=== PATIENT | male | born 1960 ===

== ENCOUNTER 2016-04-24 00:43 | Emergency (ER) | payer MEDICARE ==
[2016-04-24 00:43] VITALS: BMI 20.2
[2016-04-24 01:19] VITALS: BP 116/67; PULSE 97; TEMP 98.6
--- NOTE | 2016-04-24 03:00 | C.PDOC ---
History Of Present Illness 56 y/o male who is well known to the ED, with a PMHx that includes bipolar disorder, presents to the ED with complaints of abdominal pain. Pt states "my stomach is bubbling, I need somewhere to rest". He denies chest pain, shortness of breath, or fever. Time Seen by Provider: 04/24/16 01:11 Chief Complaint (Nursing): Abdominal Pain History Per: Patient History/Exam Limitations: no limitations Onset/Duration Of Symptoms: Unknown Current Symptoms Are (Timing): Still Present Location Of Pain/Discomfort: Diffuse Radiation Of Pain To:: None Quality Of Discomfort: Other ("bubbly") Associated Symptoms: denies: Fever, Chest Pain Exacerbating Factors: None Recent travel outside of the [place]: No Additional History Per: Patient Past Medical History Reviewed: Historical Data, Nursing Documentation, Vital Signs Vital Signs: Last Vital Signs Temp 98.6 F 04/24/16 01:19 Pulse 97 H 04/24/16 01:19 Resp 17 04/24/16 05:57 BP 116/67 04/24/16 01:19 Pulse Ox 99 04/24/16 05:57 - Medical History PMH: Anxiety, Bipolar Disorder, Depression, Fractures (2013 fx tibula/fibula), Gastritis (no c/o at present), Paranoia, Personality Disorder, Schizophrenia, Chronic Pain (Chronic abdominal pain) Surgical History: - [facility] Procedures APPLICATION OF SPLINT (04/09/14) CL FX REDUC-TIBIA/FIBULA (02/26/13) GROUP PSYCHOTHERAPY (08/25/15) INDIVID PSYCHOTHERAP NEC (12/17/13) INDIVIDUAL PSYCHOTHERAPY, BEHAVIORAL (01/29/16) INDIVIDUAL PSYCHOTHERAPY, SUPPORTIVE (08/25/15) OTHER GROUP THERAPY (11/05/13) PSYCHIA INTERV/EVAL NEC (06/28/14) Family History: States: No Known Family Hx - Social History Hx Tobacco Use: Yes (heavy smoker) Hx Alcohol Use: No (denies) Hx Substance Use: No - Immunization History Hx Tetanus Toxoid Vaccination: No Hx Influenza Vaccination: No Hx Pneumococcal Vaccination: No Review Of Systems Except As Marked, All Systems Reviewed And Found Negative. Constitutional: Negative for: Fever Cardiovascular: Negative for: Chest Pain Respiratory: Negative for: Shortness of Breath Gastrointestinal: Positive for: Abdominal Pain Physical Exam - Physical Exam Appears: Non-toxic, No Acute Distress Skin: Warm, Dry, No Rash Head: Atraumatic Eye(s): bilateral: Normal Inspection, PERRL Oral Mucosa: Moist Gastrointestinal/Abdominal: Normal Exam, Bowel Sounds, Soft, No Tenderness, No Distention, No Guarding, No Rebound Extremity: Bilateral: Atraumatic, Normal Color And Temperature, Normal ROM Neurological/Psych: Oriented x3, Normal Speech Gait: Steady ED Course And Treatment O2 Sat by Pulse Oximetry: 97 (on RA) Pulse Ox Interpretation: Normal Progress Note: Pt is requesting to a bed to sleep for the night and a sandwich despite c/o of abd pain. 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 - Scribe Statement The provider has reviewed the documentation as recorded by the Madhavibalexis Magdaleno All medical record entries made by the Scribe were at my direction and personally dictated by me. I have reviewed the chart and agree that the record accurately reflects my personal performance of the history, physical exam, medical decision making, and the department course for this patient. I have also personally directed, reviewed, and agree with the discharge instructions and disposition.
[2016-04-24 06:06] VITALS: RESP 17
[2016-04-24 06:33] VITALS: O2SAT 97
== END 2016-04-24 05:57 | disposition home or self-care (01) ==
LOC: C.ER 00:43
DX: R10.84 Generalized abdominal pain (principal); Z59.0 Homelessness

== ENCOUNTER 2016-04-24 23:04 | Emergency (ER) | payer MEDICARE ==
[2016-04-24 23:05] VITALS: BMI 20.2
[2016-04-24 23:28] VITALS: BP 116/81; PULSE 70; RESP 14; TEMP 97.4; O2SAT 99
--- NOTE | 2016-04-25 00:19 | C.PDOC ---
History Of Present Illness Patient presents to the ED requesting a place to sleep. Patient is well known in the ED. Patient denies fever, chest pain, shortness of breath, abdominal pain , vomiting, suicidal ideation, homicidal ideation or any other complaints at this time. Time Seen by Provider: 04/25/16 00:02 Chief Complaint (Nursing): Psychiatric Evaluation History Per: Patient History/Exam Limitations: no limitations Onset/Duration Of Symptoms: Other Current Symptoms Are (Timing): Still Present Suicide/Self Injury Attempted (Context): None Modifying Factor(s): None Severity: None Pain Scale Rating Of: 0 Associated Symptoms: Other Involuntary Hold By: None Recent travel outside of the [place]: No Additional History Per: Patient Past Medical History Reviewed: Historical Data, Nursing Documentation, Vital Signs Vital Signs: Last Vital Signs Temp 97.4 F L 04/24/16 23:24 Pulse 70 04/24/16 23:24 Resp 14 04/24/16 23:24 BP 116/81 04/24/16 23:24 Pulse Ox 99 04/25/16 02:37 - Medical History PMH: Anxiety, Bipolar Disorder, Depression, Fractures (2012 fx tibula/fibula), Gastritis (no c/o at present), Paranoia, Personality Disorder, Schizophrenia, Chronic Pain (Chronic abdominal pain) Surgical History: - [facility] Procedures APPLICATION OF SPLINT (04/09/14) CL FX REDUC-TIBIA/FIBULA (02/26/13) GROUP PSYCHOTHERAPY (08/25/15) INDIVID PSYCHOTHERAP NEC (12/17/13) INDIVIDUAL PSYCHOTHERAPY, BEHAVIORAL (01/29/16) INDIVIDUAL PSYCHOTHERAPY, SUPPORTIVE (08/25/15) OTHER GROUP THERAPY (11/05/13) PSYCHIA INTERV/EVAL NEC (06/28/14) Family History: States: Unknown Family Hx - Social History Hx Tobacco Use: Yes (heavy smoker) Hx Alcohol Use: No (denies) Hx Substance Use: No - Immunization History Hx Tetanus Toxoid Vaccination: No Hx Influenza Vaccination: No Hx Pneumococcal Vaccination: No Review Of Systems Except As Marked, All Systems Reviewed And Found Negative. Constitutional: Negative for: Fever Cardiovascular: Negative for: Chest Pain Respiratory: Negative for: Shortness of Breath Gastrointestinal: Negative for: Vomiting, Abdominal Pain Psych: Negative for: Suicidal ideation Physical Exam - Physical Exam Appears: Non-toxic, No Acute Distress Skin: Warm, Dry Head: Atraumatic, Normacephalic Eye(s): bilateral: PERRL, EOMI Oral Mucosa: Moist Neck: Normal ROM, Supple Chest: Symmetrical Cardiovascular: Rhythm Regular Respiratory: No Rales, No Rhonchi, No Wheezing Gastrointestinal/Abdominal: Soft, No Tenderness, No Distention, No Guarding, No Rebound Back: No CVA Tenderness Extremity: Bilateral: Atraumatic, Normal Color And Temperature Neurological/Psych: Oriented x3 ED Course And Treatment O2 Sat by Pulse Oximetry: 99 Pulse Ox Interpretation: Normal Reevaluation Time: 05:33 Reassessment Condition: Improved Disposition Counseled Patient/Family Regarding: Studies Performed, Diagnosis, Need For Followup - Disposition Disposition: HOME/ ROUTINE Disposition Time: 00:19 Condition: FAIR Instructions: Schizophrenia (ED) - Clinical Impression Clinical Impression: Schizophrenia, chronic condition - Scribe Statement The provider has reviewed the documentation as recorded by the Scribe Delia Chow Provider Attestation: All medical record entries made by the Scribe were at my direction and personally dictated by me. I have reviewed the chart and agree that the record accurately reflects my personal performance of the history, physical exam, medical decision making, and the department course for this patient. I have also personally directed, reviewed, and agree with the discharge instructions and disposition.
== END 2016-04-25 05:00 | disposition home or self-care (01) ==
LOC: C.ER 23:04
DX: F20.9 Schizophrenia, unspecified (principal)

== ENCOUNTER 2016-05-23 19:45 | Emergency (ER) | payer MEDICARE ==
[2016-05-23 19:45] VITALS: BMI 23.0
--- NOTE | 2016-05-23 22:01 | C.PDOC ---
History Of Present Illness Pt is requesting a place to rest and a sandwich to eat. He is well know to this ED and is at his baseline. Time Seen by Provider: 05/23/16 20:37 Chief Complaint (Nursing): Medical Clearance History Per: Patient Onset/Duration Of Symptoms: Days Current Symptoms Are (Timing): Still Present Severity: Mild Reports Recently: Seen In ED Additional History Per: Prior Records Past Medical History Reviewed: Historical Data, Nursing Documentation, Vital Signs Vital Signs: Last Vital Signs Temp 98.8 F 05/23/16 19:54 Pulse 104 H 05/23/16 19:54 Resp 20 05/23/16 19:54 BP 144/78 05/23/16 19:54 Pulse Ox 99 05/23/16 22:00 - Medical History PMH: Anxiety, Bipolar Disorder, Depression, Gastritis, Paranoia, Personality Disorder, Schizophrenia, Chronic Pain (abd) Surgical History: - [facility] Procedures APPLICATION OF SPLINT (04/09/14) CL FX REDUC-TIBIA/FIBULA (02/26/13) GROUP PSYCHOTHERAPY (08/25/15) INDIVID PSYCHOTHERAP NEC (12/17/13) INDIVIDUAL PSYCHOTHERAPY, BEHAVIORAL (01/29/16) INDIVIDUAL PSYCHOTHERAPY, SUPPORTIVE (08/25/15) OTHER GROUP THERAPY (11/05/13) PSYCHIA INTERV/EVAL NEC (06/28/14) Family History: States: Unknown Family Hx - Social History Hx Tobacco Use: Yes (heavy smoker) Hx Alcohol Use: No Hx Substance Use: No - Immunization History Hx Tetanus Toxoid Vaccination: Yes Hx Influenza Vaccination: Yes Hx Pneumococcal Vaccination: Yes Review Of Systems Except As Marked, All Systems Reviewed And Found Negative. Constitutional: Negative for: Fever Cardiovascular: Negative for: Chest Pain Respiratory: Negative for: Shortness of Breath Gastrointestinal: Negative for: Vomiting Musculoskeletal: Negative for: Neck Pain Skin: Negative for: Rash Neurological: Negative for: Seizures, Altered Mental Status Psych: Positive for: Psychosis (Chronic auditory hallucinations). Negative for : Suicidal ideation Physical Exam - Physical Exam Appears: Non-toxic, No Acute Distress Skin: Normal Color, Warm, Dry, No Rash Head: Atraumatic, Normacephalic Eye(s): bilateral: PERRL, EOMI Neck: Normal ROM, Supple Cardiovascular: Rhythm Regular Respiratory: Normal Breath Sounds, No Accessory Muscle Use Gastrointestinal/Abdominal: Soft, No Tenderness Back: No CVA Tenderness Extremity: Normal ROM, No Deformity Neurological/Psych: Oriented x3, Normal Motor, Normal Sensation ED Course And Treatment O2 Sat by Pulse Oximetry: 99 Pulse Ox Interpretation: Normal Progress Note: Pt ate a sandwich in the ED and slept. Reassessment Condition: Improved Disposition Counseled Patient/Family Regarding: Diagnosis, Need For Followup, Smoking Cessation - Disposition Referrals: [facility] [Outside] Disposition: HOME/ ROUTINE Disposition Time: 23:00 Condition: STABLE Additional Instructions: Follow up in the clinic. Return to the ER if you develop suicidal or homicidal thoughts, worsening of symptoms or if you have any other concerns. Instructions: Schizophrenia (ED) - Clinical Impression Clinical Impression: Schizophrenia, chronic condition
[2016-05-24 00:45] VITALS: BP 150/99; PULSE 88; RESP 18; TEMP 98.4; O2SAT 100
== END 2016-05-24 00:35 | disposition home or self-care (01) ==
LOC: C.ER 19:45
DX: F20.9 Schizophrenia, unspecified (principal); F17.210 Nicotine dependence, cigarettes, uncomplicated

== ENCOUNTER 2016-05-31 18:41 | Observation (INO) | payer MEDICARE ==
[2016-05-31 18:41] VITALS: BMI 23.6
[2016-05-31 18:55] VITALS: RESP 18
--- NOTE | 2016-05-31 20:44 | C.PDOC ---
History Of Present Illness 56 y/o male presents to the ED asking for food and place to stay. This is the patient's 5th visit to ED today. Patient frequently seen in ED. Time Seen by Provider: 05/31/16 19:20 Chief Complaint (Nursing): Abdominal Pain History Per: Patient History/Exam Limitations: no limitations Severity: Mild Radiation Of Pain To:: None Exacerbating Factors: None Recent travel outside of the [place]: No Past Medical History Reviewed: Historical Data, Nursing Documentation, Vital Signs Vital Signs: Last Vital Signs Temp 98.7 F 05/31/16 18:54 Pulse 99 H 05/31/16 18:54 Resp 18 05/31/16 18:54 BP 142/87 05/31/16 18:54 Pulse Ox 97 06/01/16 03:13 - Medical History PMH: Anxiety, Bipolar Disorder, Depression, Gastritis, Paranoia, Personality Disorder, Schizophrenia, Chronic Pain (abd) Surgical History: - [facility] Procedures APPLICATION OF SPLINT (04/09/14) CL FX REDUC-TIBIA/FIBULA (02/26/13) GROUP PSYCHOTHERAPY (08/25/15) INDIVID PSYCHOTHERAP NEC (12/17/13) INDIVIDUAL PSYCHOTHERAPY, BEHAVIORAL (01/29/16) INDIVIDUAL PSYCHOTHERAPY, SUPPORTIVE (08/25/15) OTHER GROUP THERAPY (11/05/13) PSYCHIA INTERV/EVAL NEC (06/28/14) Family History: States: Unknown Family Hx - Social History Hx Tobacco Use: Yes (heavy smoker) Hx Alcohol Use: No Hx Substance Use: No - Immunization History Hx Tetanus Toxoid Vaccination: Yes Hx Influenza Vaccination: Yes Hx Pneumococcal Vaccination: Yes Review Of Systems Except As Marked, All Systems Reviewed And Found Negative. Constitutional: Negative for: Fever Cardiovascular: Negative for: Chest Pain Respiratory: Negative for: Shortness of Breath Gastrointestinal: Positive for: Other (hunger). Negative for: Vomiting Psych: Positive for: Other (auditory hallucinations, baseline) Physical Exam - Physical Exam Appears: Non-toxic, No Acute Distress Skin: Warm, Dry, No Rash Head: Atraumatic, Normacephalic Eye(s): bilateral: Normal Inspection Nose: Normal Neck: Normal ROM Chest: Symmetrical Cardiovascular: Rhythm Regular Respiratory: Normal Breath Sounds Gastrointestinal/Abdominal: Soft Extremity: Bilateral: Atraumatic, Normal ROM Neurological/Psych: Oriented x3, Normal Speech ED Course And Treatment O2 Sat by Pulse Oximetry: 97 (on room air) Pulse Ox Interpretation: Normal Medical Decision Making Medical Decision Making: Patient given sandwich and juice. Patient sleeping comfortably, will allow patient to rest and observe. ED OBSERVATION Discharge: Yes Date of observation admission: 05/31/16 Time of observation admission: 19:30 - Observation admission statement Patient is being placed in observation because:: schizophrenia, no place to go - Goals of Observation Goals of observation are:: allow rest in safe place - Progress Note Progress Note: 06/01/16 00:22 Patient is asking for snack to eat 06/01/16 03:12 Patient continues to sleep comfortably in no distress. arousable to verbal stimuli 06/01/16 05:12 Patient is up ambulatory in no distress. 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 - Scribe Statement The provider has reviewed the documentation as recorded by the Scribalexis Tucker All medical record entries made by the Leonard were at my direction and personally dictated by me. I have reviewed the chart and agree that the record accurately reflects my personal performance of the history, physical exam, medical decision making, and the department course for this patient. I have also personally directed, reviewed, and agree with the discharge instructions and disposition.
[2016-06-01 05:45] VITALS: BP 135/72; PULSE 84; TEMP 97.9; O2SAT 98
== END 2016-06-01 05:14 | disposition home or self-care (01) ==
LOC: C.ER 18:41 → C.9OBSV 19:30
PROVIDERS: ADMIT Student in an Organized Health Care Education/Training Program; ATTEND Student in an Organized Health Care Education/Training Program
DX: F20.9 Schizophrenia, unspecified (principal); T73.0XXA Starvation, initial encounter; F41.9 Anxiety disorder, unspecified; F60.9 Personality disorder, unspecified; G89.29 Other chronic pain; R10.9 Unspecified abdominal pain; F17.210 Nicotine dependence, cigarettes, uncomplicated; F31.9 Bipolar disorder, unspecified; Z59.0 Homelessness; Z76.5 Malingerer [conscious simulation]; X58.XXXA Exposure to other specified factors, initial encounter
CPT/HCPCS: 99283; 99284; 99285; G0378

== ENCOUNTER 2016-06-02 00:25 | Emergency (ER) | payer MEDICARE ==
[2016-06-02 00:25] VITALS: BMI 23.6
--- NOTE | 2016-06-02 01:33 | C.PDOC ---
History Of Present Illness 56 y/o male presents to the emergency department because he needs a place to sleep. Pt reports that he's locked out from home until his sister return tomorrow. Pt denies abdominal pain. No other medical complaints. Time Seen by Provider: 06/02/16 01:06 Chief Complaint (Nursing): Abdominal Pain History Per: Patient History/Exam Limitations: no limitations Pain Scale Rating Of: 0 Recent travel outside of the [place]: No Past Medical History Reviewed: Historical Data, Nursing Documentation, Vital Signs Vital Signs: Last Vital Signs Temp 98.3 F 06/02/16 05:22 Pulse 82 06/02/16 05:22 Resp 16 06/02/16 05:22 BP 117/78 06/02/16 05:22 Pulse Ox 99 06/02/16 05:22 - Medical History PMH: Anxiety, Bipolar Disorder, Depression, Gastritis, Paranoia, Personality Disorder, Schizophrenia, Chronic Pain (abd) Denies: HIV, HTN, Chronic Kidney Disease, Seizures, Sexually Transmitted Disease Surgical History: - [facility] Procedures APPLICATION OF SPLINT (04/09/14) CL FX REDUC-TIBIA/FIBULA (02/26/13) GROUP PSYCHOTHERAPY (08/25/15) INDIVID PSYCHOTHERAP NEC (12/17/13) INDIVIDUAL PSYCHOTHERAPY, BEHAVIORAL (01/29/16) INDIVIDUAL PSYCHOTHERAPY, SUPPORTIVE (08/25/15) OTHER GROUP THERAPY (11/05/13) PSYCHIA INTERV/EVAL NEC (06/28/14) Family History: States: Unknown Family Hx - Social History Hx Tobacco Use: Yes (heavy smoker) Hx Alcohol Use: No Hx Substance Use: No - Immunization History Hx Tetanus Toxoid Vaccination: Yes Hx Influenza Vaccination: Yes Hx Pneumococcal Vaccination: Yes Review Of Systems Except As Marked, All Systems Reviewed And Found Negative. Constitutional: Negative for: Fever Cardiovascular: Negative for: Chest Pain Respiratory: Negative for: Cough, Shortness of Breath Gastrointestinal: Negative for: Vomiting, Abdominal Pain, Diarrhea Skin: Negative for: Rash Physical Exam - Physical Exam Appears: Non-toxic, No Acute Distress Skin: Warm, Dry Head: Atraumatic, Normacephalic Chest: Symmetrical Cardiovascular: Rhythm Regular Respiratory: Normal Breath Sounds Gastrointestinal/Abdominal: Soft, No Tenderness Back: Normal Inspection Extremity: Normal ROM Neurological/Psych: Oriented x3, Normal Speech, Normal Cognition ED Course And Treatment O2 Sat by Pulse Oximetry: 98 Pulse Ox Interpretation: Normal Progress Note: 6 AM: Pt is stable, no complaints will d/c Disposition - Disposition Disposition: HOME/ ROUTINE Disposition Time: 06:23 Condition: STABLE - Clinical Impression Clinical Impression: Encounter for medical assessment - 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 - Scribe Statement The provider has reviewed the documentation as recorded by the Madhavibalexis Valadez Provider Scribe Attestation: All medical record entries made by the Leonard were at my direction and personally dictated by me. I have reviewed the chart and agree that the record accurately reflects my personal performance of the history, physical exam, medical decision making, and the department course for this patient. I have also personally directed, reviewed, and agree with the discharge instructions and disposition.
[2016-06-02 05:23] VITALS: BP 117/78; PULSE 82; RESP 16; TEMP 98.3
[2016-06-02 06:25] VITALS: O2SAT 98
== END 2016-06-02 05:29 | disposition home or self-care (01) ==
LOC: C.ER 00:25
DX: Z00.00 Encounter for general adult medical examination without abnormal findings (principal); R10.84 Generalized abdominal pain

== ENCOUNTER 2016-06-18 09:26 | Emergency (ER) | payer MEDICARE ==
[2016-06-18 09:27] VITALS: BMI 23.6
[2016-06-18 09:38] VITALS: BP 137/85; PULSE 85; RESP 16; TEMP 97.5; O2SAT 98
--- NOTE | 2016-06-18 09:51 | C.PDOC ---
History Of Present Illness 56-year-old male, presents to the emergency department with complaints of auditory hallucinations. Pt states he was told by "male doctor, that I can be admitted." Patient denies any other complaints at this time. No SI/HI. Patient was seen in ED yesterday, and in [facility] ED. Pt with a Hx of multiple ED visits for same complaint. Time Seen by Provider: 06/18/16 09:47 Chief Complaint (Nursing): Psychiatric Evaluation History Per: Patient History/Exam Limitations: no limitations Past Medical History Reviewed: Historical Data, Nursing Documentation, Vital Signs Vital Signs: Last Vital Signs Temp 97.5 F L 06/18/16 09:36 Pulse 85 06/18/16 09:36 Resp 16 06/18/16 09:36 BP 137/85 06/18/16 09:36 Pulse Ox 98 06/18/16 10:14 - Medical History PMH: Anxiety, Bipolar Disorder, Depression, Gastritis, Paranoia, Personality Disorder, Schizophrenia, Chronic Pain (abd) Denies: HIV, HTN, Chronic Kidney Disease, Seizures, Sexually Transmitted Disease Surgical History: - [facility] Procedures APPLICATION OF SPLINT (04/09/14) CL FX REDUC-TIBIA/FIBULA (02/26/13) GROUP PSYCHOTHERAPY (08/25/15) INDIVID PSYCHOTHERAP NEC (12/17/13) INDIVIDUAL PSYCHOTHERAPY, BEHAVIORAL (01/29/16) INDIVIDUAL PSYCHOTHERAPY, SUPPORTIVE (08/25/15) OTHER GROUP THERAPY (11/05/13) PSYCHIA INTERV/EVAL NEC (06/28/14) Family History: States: Unknown Family Hx - Social History Hx Tobacco Use: Yes (heavy smoker) Hx Alcohol Use: No Hx Substance Use: No - Immunization History Hx Tetanus Toxoid Vaccination: Yes Hx Influenza Vaccination: Yes Hx Pneumococcal Vaccination: Yes Review Of Systems Except As Marked, All Systems Reviewed And Found Negative. Constitutional: Negative for: Fever, Chills Cardiovascular: Negative for: Chest Pain Respiratory: Negative for: Shortness of Breath Psych: Negative for: Suicidal ideation Physical Exam - Physical Exam Appears: Non-toxic, No Acute Distress Eye(s): bilateral: Normal Inspection Nose: Normal Lips: Normal Appearing Neck: Normal ROM Respiratory: No Accessory Muscle Use Extremity: Normal ROM Neurological/Psych: Oriented x3, Normal Speech ED Course And Treatment O2 Sat by Pulse Oximetry: 98 Medical Decision Making Medical Decision Making: CASE DISCUSSED W/ METROLOGY ENGINEER VERNON STATES PATIENT WAS NEVER TOLD TO COME IN FOR ADMISSION. PT SEEN IN [place] ED YESTERDAY FOR HAND INJURY, HAS A SPLINT ON HAND Disposition Counseled Patient/Family Regarding: Diagnosis, Need For Followup - Disposition Referrals: [facility] [Outside] [facility] [Outside] Disposition: HOME/ ROUTINE Disposition Time: 09:52 Condition: GOOD Instructions: Schizophrenia (ED) Forms: General Discharge Instructions - Clinical Impression Clinical Impression: Malingering - Scribe Statement The provider has reviewed the documentation as recorded by the Madhavibalexis Hemphill All medical record entries made by the Madhavibalexis were at my direction and personally dictated by me. I have reviewed the chart and agree that the record accurately reflects my personal performance of the history, physical exam, medical decision making, and the department course for this patient. I have also personally directed, reviewed, and agree with the discharge instructions and disposition.
== END 2016-06-18 10:15 | disposition home or self-care (01) ==
LOC: C.ER 09:26
DX: Z76.5 Malingerer [conscious simulation] (principal)

== ENCOUNTER → 2016-06-21 19:48 | Emergency (ER) | payer MEDICARE ==
[2016-06-21 19:48] VITALS: BMI 34.9
== END | disposition left against medical advice (07) ==
LOC: C.ER 19:48
DX: R10.9 Unspecified abdominal pain (principal); Z02.9 Encounter for administrative examinations, unspecified

== ENCOUNTER 2016-06-22 16:44 | Observation (INO) | payer MEDICARE ==
[2016-06-22 17:43] VITALS: O2SAT 98; BMI 23.0
--- NOTE | 2016-06-22 18:29 | C.PDOC ---
History Of Present Illness Patient is a 56 y/o male, with Hx of alcohol abuse, and phych disorders, that presents to the ED with complaints of hearing voices. Patient was seen in this ED and [facility] several times with similar complaints. Otherwise, denies any headache, dizziness, fever, chills, abdominal pain, n/v/d, or any other associated symptoms at this time. Time Seen by Provider: 06/22/16 17:40 Chief Complaint (Nursing): Lower Extremity Problem/Injury History Per: Patient History/Exam Limitations: no limitations Onset/Duration Of Symptoms: Days Current Symptoms Are (Timing): Still Present Recent travel outside of the [place]: No Past Medical History Reviewed: Historical Data, Nursing Documentation, Vital Signs Vital Signs: Last Vital Signs Temp 97.3 F L 06/22/16 17:34 Pulse 89 06/22/16 17:34 Resp 18 06/22/16 17:34 BP 111/79 06/22/16 17:34 Pulse Ox 98 06/22/16 18:37 - Medical History PMH: Anxiety, Bipolar Disorder, Depression, Gastritis, Paranoia, Personality Disorder, Schizophrenia, Chronic Pain (abd) Denies: HIV, HTN, Chronic Kidney Disease, Seizures, Sexually Transmitted Disease Surgical History: - [facility] Procedures APPLICATION OF SPLINT (04/09/14) CL FX REDUC-TIBIA/FIBULA (02/26/13) GROUP PSYCHOTHERAPY (08/25/15) INDIVID PSYCHOTHERAP NEC (12/17/13) INDIVIDUAL PSYCHOTHERAPY, BEHAVIORAL (01/29/16) INDIVIDUAL PSYCHOTHERAPY, SUPPORTIVE (08/25/15) OTHER GROUP THERAPY (11/05/13) PSYCHIA INTERV/EVAL NEC (06/28/14) Family History: States: Unknown Family Hx - Social History Hx Tobacco Use: Yes (heavy smoker) Hx Alcohol Use: No Hx Substance Use: No - Immunization History Hx Tetanus Toxoid Vaccination: Yes Hx Influenza Vaccination: Yes (2016) Hx Pneumococcal Vaccination: Yes Review Of Systems Except As Marked, All Systems Reviewed And Found Negative. Constitutional: Negative for: Fever, Chills Cardiovascular: Negative for: Chest Pain, Palpitations Respiratory: Negative for: Cough, Shortness of Breath Gastrointestinal: Negative for: Nausea, Vomiting, Abdominal Pain, Diarrhea Neurological: Negative for: Headache, Dizziness Psych: Positive for: Other (hearing voices). Negative for: Suicidal ideation Physical Exam - Physical Exam Appears: Non-toxic, No Acute Distress Skin: Normal Color, Warm, Dry Head: Atraumatic, Normacephalic Eye(s): bilateral: Normal Inspection, EOMI Neck: Supple Chest: Symmetrical Cardiovascular: Rhythm Regular Respiratory: Normal Breath Sounds Neurological/Psych: Oriented x3, Normal Speech, Normal Cognition ED Course And Treatment O2 Sat by Pulse Oximetry: 98 (RA) Pulse Ox Interpretation: Normal Disposition Counseled Patient/Family Regarding: Studies Performed - Disposition Disposition Time: 18:38 Condition: GUARDED - Clinical Impression Clinical Impression: Alcohol abuse, Hearing voices - Scribe Statement The provider has reviewed the documentation as recorded by the Madhavibe Alexnader Chow Provider Attestation: All medical record entries made by the Madhavibe were at my direction and personally dictated by me. I have reviewed the chart and agree that the record accurately reflects my personal performance of the history, physical exam, medical decision making, and the department course for this patient. I have also personally directed, reviewed, and agree with the discharge instructions and disposition. Physician Patient Turnover Patient Signed Over To: Christopher Lyles Handoff Comments: Patient frequents the ED, with c/o hearing voices, pending eval by Crisis
[2016-06-22 19:35] LABS: BASO % 0.5 % (0.0-2.0); EOS # 0.1 K/uL (0.0-0.7); EOS % 1.9 % (0.0-4.0); HEMATOCRIT 38.1 % (35.0-51.0); LYMPH # 1.7 K/uL (1.0-4.3); LYMPH % 25.2 % (20.0-40.0); MEAN CORPUSCULAR HEMOGLOBIN 29.8 pg (27.0-31.0); MEAN CORPUSCULAR HGB CONC 33.5 g/dL (33.0-37.0); MONO # 0.5 K/uL (0.0-0.8); MONO % 7.3 % (0.0-10.0); RED CELL DISTRIBUTION WIDTH 13.5 % (11.5-14.5); WHITE BLOOD COUNT 6.8 K/uL (4.8-10.8)
[2016-06-22 19:36] LABS: RBC URINE < 1 /hpf (0-3); URINE BILIRUBIN NEGATIVE (NEGATIVE); URINE BLOOD NEGATIVE (NEGATIVE); URINE COLOR Straw (YELLOW); URINE GLUCOSE (UA) NORMAL (Normal); URINE KETONE NEGATIVE (NEGATIVE); URINE LEUKOCYTE ESTERASE NEG Leu/uL (Negative); URINE PROTEIN NEGATIVE (NEGATIVE); URINE UROBILINOGEN NORMAL mg/dL (0.2-1.0); WBC URINE < 1 /hpf (0-5)
[2016-06-22 19:43] LABS: CHLORIDE 100 mmol/L (98-107); POTASSIUM 3.9 mmol/L (3.6-5.2); SODIUM 138 mmol/L (132-148)
[2016-06-22 19:45] LABS: BILIRUBIN,TOTAL 0.2 mg/dL (0.2-1.3); GFR AFRICAN-AMERICAN > 60
[2016-06-22 19:46] LABS: ALB/GLOB RATIO 1.2 (1.0-2.1); ALKALINE PHOSPHATASE 69 U/L (38-126); ALT/SGPT 30 U/L (21-72); AST/SGOT 19 U/L (17-59); BLOOD UREA NITROGEN 12 mg/dL (9-20); CALCIUM 8.8 mg/dl (8.6-10.4); CARBON DIOXIDE 29 mmol/L (22-30); GLUCOSE,RANDOM 76 mg/dL (75-110); TOTAL PROTEIN 6.6 g/dL (6.3-8.3)
[2016-06-22 19:47] LABS: ALCOHOL SERUM < 10 mg/dl (0-10)
[2016-06-22 22:47] VITALS: TEMP 97.9
[2016-06-23 02:18] VITALS: BP 104/67; PULSE 76; RESP 18
== END 2016-06-23 02:05 | disposition home or self-care (01) ==
LOC: C.ER 16:44 → C.9OBSV 21:38
PROVIDERS: ADMIT Emergency Medicine; ATTEND Emergency Medicine
DX: F10.10 Alcohol abuse, uncomplicated (principal); F20.9 Schizophrenia, unspecified; F31.9 Bipolar disorder, unspecified; F17.210 Nicotine dependence, cigarettes, uncomplicated
CPT/HCPCS: 80053; 80320; 80324; 80345; 80346; 80349; 80353; 80358; 80361; 81001; 83992; 85025; 99284; G0378

== ENCOUNTER 2016-06-23 12:07 | Observation (INO) | payer MEDICARE ==
[2016-06-23 12:08] VITALS: BMI 23.0
[2016-06-23 12:23] VITALS: BP 112/77; PULSE 88; RESP 18; TEMP 97.9; O2SAT 99
--- NOTE | 2016-06-23 13:42 | C.PDOC ---
History Of Present Illness 56 y/o male presents to the emergency department with complaints of "hearing voices." He says he has been hearing voices for years. Patient denies any other complaints at this time. No SI/HI. Patient has a history of multiple prior ED visits for same complaint. Time Seen by Provider: 06/23/16 13:33 Chief Complaint (Nursing): Psychiatric Evaluation History Per: Patient History/Exam Limitations: no limitations Onset/Duration Of Symptoms: Days, Gradual, Persistent Current Symptoms Are (Timing): Still Present Suicide/Self Injury Attempted (Context): None Involuntary Hold By: None Recent travel outside of the [place]: No Past Medical History Reviewed: Historical Data, Nursing Documentation, Vital Signs Vital Signs: Last Vital Signs Temp 97.9 F 06/23/16 12:21 Pulse 88 06/23/16 12:21 Resp 18 06/23/16 12:21 BP 112/77 06/23/16 12:21 Pulse Ox 99 06/23/16 13:52 - Medical History PMH: Anxiety, Bipolar Disorder, Depression, Gastritis, Paranoia, Personality Disorder, Schizophrenia, Chronic Pain (abd) Surgical History: No Surg Hx - [facility] Procedures APPLICATION OF SPLINT (04/09/14) CL FX REDUC-TIBIA/FIBULA (02/26/13) GROUP PSYCHOTHERAPY (08/25/15) INDIVID PSYCHOTHERAP NEC (12/17/13) INDIVIDUAL PSYCHOTHERAPY, BEHAVIORAL (01/29/16) INDIVIDUAL PSYCHOTHERAPY, SUPPORTIVE (08/25/15) OTHER GROUP THERAPY (11/05/13) PSYCHIA INTERV/EVAL NEC (06/28/14) Family History: States: Unknown Family Hx - Social History Hx Tobacco Use: Yes (heavy smoker) Hx Alcohol Use: No Hx Substance Use: No - Immunization History Hx Tetanus Toxoid Vaccination: Yes Hx Influenza Vaccination: Yes (2016) Hx Pneumococcal Vaccination: Yes Review Of Systems Except As Marked, All Systems Reviewed And Found Negative. Musculoskeletal: Negative for: Other (pain) Psych: Positive for: Other (hearing voices). Negative for: Suicidal ideation ( or homicidal ideation) Physical Exam - Physical Exam Appears: Non-toxic, No Acute Distress Skin: Normal Color, Warm, Dry Head: Atraumatic, Normacephalic Eye(s): bilateral: Normal Inspection, PERRL Neck: Normal ROM, Supple Chest: Symmetrical Cardiovascular: Rhythm Regular Respiratory: Normal Breath Sounds, No Rales, No Rhonchi, No Wheezing Gastrointestinal/Abdominal: Normal Exam, Soft, No Tenderness Extremity: Normal ROM Extremity: Bilateral: Atraumatic Neurological/Psych: Oriented x3, Normal Speech ED Course And Treatment O2 Sat by Pulse Oximetry: 99 (ra) Pulse Ox Interpretation: Normal ED OBSERVATION Date of observation admission: 06/23/16 Time of observation admission: 13:38 Disposition - Disposition Disposition Time: 14:00 Condition: STABLE - Clinical Impression Clinical Impression: Hearing voices - Scribe Statement The provider has reviewed the documentation as recorded by the Scribe (Adore Cooper) Provider Attestation: All medical record entries made by the Scribe were at my direction and personally dictated by me. I have reviewed the chart and agree that the record accurately reflects my personal performance of the history, physical exam, medical decision making, and the department course for this patient. I have also personally directed, reviewed, and agree with the discharge instructions and disposition.
== END 2016-06-23 16:20 | disposition home or self-care (01) ==
LOC: C.ER 12:07 → C.9OBSV 13:35
PROVIDERS: ADMIT Emergency Medicine; ATTEND Emergency Medicine
DX: R44.0 Auditory hallucinations (principal); F99 Mental disorder, not otherwise specified; Z68.23 Body mass index [BMI] 23.0-23.9, adult; F17.210 Nicotine dependence, cigarettes, uncomplicated
CPT/HCPCS: 99281; G0378

== ENCOUNTER 2016-06-24 21:26 | Observation (INO) | payer MEDICARE ==
--- NOTE | 2016-06-24 23:48 | C.PDOC ---
History Of Present Illness 56 year old pt has a history of multiple ED visits. Pt presents to the ER with a request of a bed on arrival. pt denies any complaints at this time. Time Seen by Provider: 06/24/16 23:38 Chief Complaint (Nursing): Psychiatric Evaluation History Per: Patient History/Exam Limitations: no limitations Onset/Duration Of Symptoms: Hrs Suicide/Self Injury Attempted (Context): None Severity: None Involuntary Hold By: None Past Medical History Reviewed: Historical Data, Nursing Documentation, Vital Signs Vital Signs: Last Vital Signs Temp 98.4 F 06/25/16 06:00 Pulse 78 06/25/16 06:00 Resp 18 06/25/16 06:00 BP 121/76 06/25/16 06:00 Pulse Ox 100 06/25/16 06:00 - Medical History PMH: Anxiety, Bipolar Disorder, Depression, Gastritis, Paranoia, Personality Disorder, Schizophrenia, Chronic Pain (abd) Denies: Diabetes, Hepatitis, HIV, HTN, Chronic Kidney Disease, Seizures, Sexually Transmitted Disease Surgical History: - [facility] Procedures APPLICATION OF SPLINT (04/09/14) CL FX REDUC-TIBIA/FIBULA (02/26/13) GROUP PSYCHOTHERAPY (08/25/15) INDIVID PSYCHOTHERAP NEC (12/17/13) INDIVIDUAL PSYCHOTHERAPY, BEHAVIORAL (01/29/16) INDIVIDUAL PSYCHOTHERAPY, SUPPORTIVE (08/25/15) OTHER GROUP THERAPY (11/05/13) PSYCHIA INTERV/EVAL NEC (06/28/14) Family History: States: Unknown Family Hx - Social History Hx Tobacco Use: Yes (heavy smoker) Hx Alcohol Use: No Hx Substance Use: No - Immunization History Hx Tetanus Toxoid Vaccination: Yes Hx Influenza Vaccination: Yes (2016) Hx Pneumococcal Vaccination: Yes Review Of Systems Except As Marked, All Systems Reviewed And Found Negative. Constitutional: Negative for: Fever, Chills Physical Exam - Physical Exam Appears: Non-toxic, No Acute Distress Skin: Warm, Dry Head: Atraumatic, Normacephalic Eye(s): bilateral: Normal Inspection Neurological/Psych: Oriented x3, Normal Speech ED Course And Treatment O2 Sat by Pulse Oximetry: 97 (Room air) Pulse Ox Interpretation: Normal Disposition - Disposition Disposition: HOME/ ROUTINE Disposition Time: 06:36 Condition: STABLE - Clinical Impression Clinical Impression: Homeless single person - Scribe Statement The provider has reviewed the documentation as recorded by the Scribe Mohamed Unique All medical record entries made by the Leonard were at my direction and personally dictated by me. I have reviewed the chart and agree that the record accurately reflects my personal performance of the history, physical exam, medical decision making, and the department course for this patient. I have also personally directed, reviewed, and agree with the discharge instructions and disposition.
[2016-06-25 02:09] VITALS: RESP 18
[2016-06-25 06:17] VITALS: BP 121/76; PULSE 78; TEMP 98.4
[2016-06-25 06:37] VITALS: O2SAT 97
== END 2016-06-25 05:34 | disposition home or self-care (01) ==
LOC: C.ER 21:26 → C.9OBSV 23:44
PROVIDERS: ADMIT Student in an Organized Health Care Education/Training Program; ATTEND Student in an Organized Health Care Education/Training Program
DX: Z04.8 Encounter for examination and observation for other specified reasons (principal); Z59.0 Homelessness
CPT/HCPCS: G0378 ×2

== ENCOUNTER 2016-06-26 23:15 | Emergency (ER) | payer MEDICARE ==
[2016-06-26 23:34] VITALS: O2SAT 100
--- NOTE | 2016-06-27 03:55 | C.PDOC ---
History Of Present Illness Contrary to triage note, pt denies suicidal thoughts. He states that he is hungry and just wants a place to stay for the night. He is well know to me and to this ED and is at his baseline. Time Seen by Provider: 06/27/16 01:03 Chief Complaint (Nursing): Medical Clearance History Per: Patient Onset/Duration Of Symptoms: Days (chronic) Current Symptoms Are (Timing): Still Present Suicide/Self Injury Attempted (Context): None Modifying Factor(s): None Severity: Moderate Associated Symptoms: denies: Suicidal Thoughts, Suicidal Plan Additional History Per: Prior Records Past Medical History Reviewed: Historical Data, Nursing Documentation, Vital Signs Vital Signs: Last Vital Signs Temp 98.6 F 06/27/16 05:41 Pulse 73 06/27/16 05:41 Resp 16 06/27/16 05:41 BP 117/77 06/27/16 05:41 Pulse Ox 100 06/27/16 05:41 - Medical History PMH: Anxiety, Bipolar Disorder, Depression, Gastritis, Paranoia, Personality Disorder, Schizophrenia, Chronic Pain (abd) Surgical History: - [facility] Procedures APPLICATION OF SPLINT (04/09/14) CL FX REDUC-TIBIA/FIBULA (02/26/13) GROUP PSYCHOTHERAPY (08/25/15) INDIVID PSYCHOTHERAP NEC (12/17/13) INDIVIDUAL PSYCHOTHERAPY, BEHAVIORAL (01/29/16) INDIVIDUAL PSYCHOTHERAPY, SUPPORTIVE (08/25/15) OTHER GROUP THERAPY (11/05/13) PSYCHIA INTERV/EVAL NEC (06/28/14) Family History: States: Unknown Family Hx - Social History Hx Tobacco Use: Yes (heavy smoker) Hx Alcohol Use: No Hx Substance Use: No - Immunization History Hx Tetanus Toxoid Vaccination: Yes Hx Influenza Vaccination: Yes (2017) Hx Pneumococcal Vaccination: Yes Review Of Systems Except As Marked, All Systems Reviewed And Found Negative. Constitutional: Negative for: Fever Cardiovascular: Negative for: Chest Pain Respiratory: Negative for: Shortness of Breath Gastrointestinal: Negative for: Vomiting, Abdominal Pain Musculoskeletal: Negative for: Neck Pain Skin: Negative for: Rash Neurological: Negative for: Weakness, Numbness, Seizures, Altered Mental Status Physical Exam - Physical Exam Appears: Non-toxic, No Acute Distress Skin: Normal Color, Warm, Dry, No Rash Head: Atraumatic, Normacephalic Eye(s): bilateral: PERRL, EOMI Neck: Normal ROM, Supple Cardiovascular: Rhythm Regular Respiratory: Normal Breath Sounds, No Accessory Muscle Use Gastrointestinal/Abdominal: Soft, No Tenderness Back: No CVA Tenderness Extremity: Normal ROM Neurological/Psych: Oriented x3, Normal Motor, Normal Sensation ED Course And Treatment O2 Sat by Pulse Oximetry: 100 Pulse Ox Interpretation: Normal Reassessment Condition: Improved Disposition Counseled Patient/Family Regarding: Diagnosis, Need For Followup - Disposition Referrals: [facility] [Outside] Disposition: HOME/ ROUTINE Disposition Time: 05:47 Condition: IMPROVED Additional Instructions: Follow up in the clinic. Return to the ER if you develop suicidal or homicidal thoughts, worsening of symptoms or if you have any other concerns. Instructions: Schizophrenia (ED) - Clinical Impression Clinical Impression: Schizophrenia
[2016-06-27 05:43] VITALS: BP 117/77; PULSE 73; RESP 16; TEMP 98.6
== END 2016-06-27 05:59 | disposition home or self-care (01) ==
LOC: C.ER 23:15
DX: F20.9 Schizophrenia, unspecified (principal)

== ENCOUNTER 2016-06-29 03:05 | Emergency (ER) | payer MEDICARE ==
[2016-06-29 03:06] VITALS: BMI 23.0
[2016-06-29 05:27] VITALS: TEMP 98
[2016-06-29 05:28] VITALS: BP 112/72; PULSE 79; RESP 16; O2SAT 99
--- NOTE | 2016-06-29 06:12 | C.PDOC ---
History Of Present Illness The patient, a 56 y/o male, presents to the ED stating he is not feeling well and requests a place to stay for the night. Patient is familiar to the ED and has had many prior visits concerning similar requests. Patient denies fever, chills, abdominal pain, and has no physical complaints at this time. Time Seen by Provider: 06/29/16 03:19 Chief Complaint (Nursing): Medical Clearance History Per: Patient History/Exam Limitations: no limitations Onset/Duration Of Symptoms: Unknown Current Symptoms Are (Timing): Still Present Additional History Per: Patient Past Medical History Reviewed: Historical Data, Nursing Documentation, Vital Signs Vital Signs: Last Vital Signs Temp 98 F 06/29/16 05:27 Pulse 79 06/29/16 05:27 Resp 16 06/29/16 05:27 BP 112/72 06/29/16 05:27 Pulse Ox 99 06/29/16 06:15 - Medical History PMH: Anxiety, Bipolar Disorder, Depression, Gastritis, Paranoia, Personality Disorder, Schizophrenia, Chronic Pain (abd) Denies: Diabetes, Hepatitis, HIV, HTN, Chronic Kidney Disease, Seizures, Sexually Transmitted Disease Surgical History: No Surg Hx - [facility] Procedures APPLICATION OF SPLINT (04/09/14) CL FX REDUC-TIBIA/FIBULA (02/26/13) GROUP PSYCHOTHERAPY (08/25/15) INDIVID PSYCHOTHERAP NEC (12/17/13) INDIVIDUAL PSYCHOTHERAPY, BEHAVIORAL (01/29/16) INDIVIDUAL PSYCHOTHERAPY, SUPPORTIVE (08/25/15) OTHER GROUP THERAPY (11/05/13) PSYCHIA INTERV/EVAL NEC (06/28/14) Family History: States: Unknown Family Hx - Social History Hx Tobacco Use: Yes (heavy smoker) Hx Alcohol Use: No Hx Substance Use: No - Immunization History Hx Tetanus Toxoid Vaccination: Yes Hx Influenza Vaccination: Yes (2016) Hx Pneumococcal Vaccination: Yes Review Of Systems Except As Marked, All Systems Reviewed And Found Negative. Constitutional: Positive for: Other (+not feeling well, requesting a place to stay ). Negative for: Fever, Chills Gastrointestinal: Negative for: Abdominal Pain Physical Exam - Physical Exam Appears: Non-toxic, No Acute Distress Skin: Normal Color, Warm, Dry Head: Atraumatic Eye(s): bilateral: Normal Inspection Oral Mucosa: Moist Neck: Normal ROM, Supple Cardiovascular: Rhythm Regular Respiratory: Normal Breath Sounds Gastrointestinal/Abdominal: Soft, No Tenderness, No Guarding, No Rebound Back: Normal Inspection, No Vertebral Tenderness, No Paraspinal Tenderness Extremity: Normal ROM, Capillary Refill (less than 2 seconds) Neurological/Psych: Oriented x3, Normal Speech, Normal Cognition Gait: Steady ED Course And Treatment O2 Sat by Pulse Oximetry: 99 (on RA) Pulse Ox Interpretation: Normal Progress Note: Patient is sleeping comfortably in the ED. On reassessment, patient is resting comfortably, showing no signs of distress, and is stable for discharge. 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 - Scribe Statement The provider has reviewed the documentation as recorded by the Scribe (Rosi Chow) All medical record entries made by the Scribe were at my direction and personally dictated by me. I have reviewed the chart and agree that the record accurately reflects my personal performance of the history, physical exam, medical decision making, and the department course for this patient. I have also personally directed, reviewed, and agree with the discharge instructions and disposition.
== END 2016-06-29 06:45 | disposition home or self-care (01) ==
LOC: C.ER 03:05
DX: Z00.00 Encounter for general adult medical examination without abnormal findings (principal)

== ENCOUNTER 2016-07-01 10:33 | Inpatient (IN) | payer MEDICARE ==
[2016-07-01 10:33] VITALS: BMI 23.0
[2016-07-01 11:42] LABS: BASO % 0.6 % (0.0-2.0); EOS # 0.2 K/uL (0.0-0.7); EOS % 2.5 % (0.0-4.0); HEMATOCRIT 38.7 % (35.0-51.0); LYMPH # 1.4 K/uL (1.0-4.3); LYMPH % 21.4 % (20.0-40.0); MEAN CELL VOLUME 91.9 fL (80.0-94.0); MEAN CORPUSCULAR HEMOGLOBIN 30.9 pg (27.0-31.0); MEAN CORPUSCULAR HGB CONC 33.6 g/dL (33.0-37.0); MEAN PLATELET VOLUME 7.9 fL (7.2-11.7); MONO # 0.4 K/uL (0.0-0.8); MONO % 5.8 % (0.0-10.0); RED CELL DISTRIBUTION WIDTH 14.1 % (11.5-14.5); WHITE BLOOD COUNT 6.7 K/uL (4.8-10.8)
[2016-07-01 11:47] LABS: CHLORIDE 98 mmol/L (98-107); POTASSIUM 3.5 mmol/L (3.6-5.2); SODIUM 136 mmol/L (132-148)
[2016-07-01 11:49] LABS: BILIRUBIN,TOTAL 0.3 mg/dL (0.2-1.3); GFR AFRICAN-AMERICAN > 60
[2016-07-01 11:50] LABS: ALB/GLOB RATIO 1.2 (1.0-2.1); ALKALINE PHOSPHATASE 70 U/L (38-126); ALT/SGPT 21 U/L (21-72); AST/SGOT 18 U/L (17-59); BLOOD UREA NITROGEN 12 mg/dL (9-20); CALCIUM 8.9 mg/dl (8.6-10.4); CARBON DIOXIDE 28 mmol/L (22-30); GLUCOSE,RANDOM 97 mg/dL (75-110); TOTAL PROTEIN 6.8 g/dL (6.3-8.3)
[2016-07-01 11:51] LABS: ALCOHOL SERUM < 10 mg/dl (0-10)
--- NOTE | 2016-07-01 12:35 | C.PDOC ---
History Of Present Illness 56 year old male presents to the ED with complaints of suicidal ideation. Patient is well known to the ED with multiple visits a day due to hearing voices and wanting to hurt himself. Today patient states he wants to slash his wrists but does not have a knife. He has no physical complaints at this time. Time Seen by Provider: 07/01/16 11:14 Chief Complaint (Nursing): Psychiatric Evaluation History Per: Patient History/Exam Limitations: no limitations Onset/Duration Of Symptoms: Days Current Symptoms Are (Timing): Still Present Suicide/Self Injury Attempted (Context): None Severity: Mild Associated Symptoms: Suicidal Thoughts Past Medical History Reviewed: Historical Data, Nursing Documentation, Vital Signs Vital Signs: Last Vital Signs Temp 98.4 F 07/01/16 12:56 Pulse 80 07/01/16 12:56 Resp 18 07/01/16 12:56 BP 116/71 07/01/16 12:56 Pulse Ox 97 07/01/16 12:56 - Medical History PMH: Anxiety, Bipolar Disorder, Depression, Gastritis, Paranoia, Personality Disorder, Schizophrenia, Chronic Pain (abd) Surgical History: - [facility] Procedures APPLICATION OF SPLINT (04/09/14) CL FX REDUC-TIBIA/FIBULA (02/26/13) GROUP PSYCHOTHERAPY (08/25/15) INDIVID PSYCHOTHERAP NEC (12/17/13) INDIVIDUAL PSYCHOTHERAPY, BEHAVIORAL (01/29/16) INDIVIDUAL PSYCHOTHERAPY, SUPPORTIVE (08/25/15) OTHER GROUP THERAPY (11/05/13) PSYCHIA INTERV/EVAL NEC (06/28/14) Family History: States: Unknown Family Hx - Social History Hx Tobacco Use: Yes (heavy smoker) Hx Alcohol Use: No Hx Substance Use: No - Immunization History Hx Tetanus Toxoid Vaccination: Yes Hx Influenza Vaccination: Yes (2017) Hx Pneumococcal Vaccination: Yes Review Of Systems Except As Marked, All Systems Reviewed And Found Negative. Constitutional: Negative for: Fever, Chills Cardiovascular: Negative for: Chest Pain Respiratory: Negative for: Shortness of Breath Gastrointestinal: Negative for: Nausea, Vomiting, Abdominal Pain Neurological: Negative for: Weakness, Numbness Psych: Positive for: Suicidal ideation Physical Exam - Physical Exam Appears: Non-toxic, No Acute Distress Skin: Normal Color, Warm, Dry Head: Atraumatic, Normacephalic Eye(s): bilateral: Normal Inspection Oral Mucosa: Moist Chest: Symmetrical, No Deformity Cardiovascular: Rhythm Regular, No Murmur Respiratory: Normal Breath Sounds, No Accessory Muscle Use, No Rales, No Rhonchi , No Wheezing Gastrointestinal/Abdominal: Soft, No Distention Extremity: Normal ROM Neurological/Psych: Oriented x3 ED Course And Treatment - Laboratory Results Result Diagrams: 07/01/16 11:35 07/01/16 11:35 O2 Sat by Pulse Oximetry: 99 (Room air) Pulse Ox Interpretation: Normal Progress Note: Blood work and urinalysis ordered and reviewed. Suicide protocol alerted. Medical Decision Making Medical Decision Making: Pt medically stable for PES evaluation / admission Disposition - Disposition Disposition: HOSPITALIZED Disposition Time: 13:51 Condition: FAIR - Clinical Impression Clinical Impression: Schizophrenia - Scribe Statement The provider has reviewed the documentation as recorded by the Scribe Catina Kang. Provider Attestation: All medical record entries made by the Scribe were at my direction and personally dictated by me. I have reviewed the chart and agree that the record accurately reflects my personal performance of the history, physical exam, medical decision making, and the department course for this patient. I have also personally directed, reviewed, and agree with the discharge instructions and disposition. Decision To Admit - Pt Status Changed To: Hospital Disposition Of: Inpatient - Admit Certification Admit to Inpatient:: After my assessment, the patient will require hospitalization for at least two midnights. This is because of the severity of symptoms shown, intensity of services needed, and/or the medical risk in this patient being treated as an outpatient. - InPatient: Physician Admission Certification: I certify that this patient requires 2 or more midnights of care for the following reason:: Protocol - . Bed Request Type: Psychiatry Admitting Physician: Tanya Roth Patient Diagnosis: Schizophrenia
[2016-07-01 12:50] LABS: URINE BILIRUBIN NEGATIVE (NEGATIVE); URINE BLOOD NEGATIVE (NEGATIVE); URINE COLOR Straw (YELLOW); URINE GLUCOSE (UA) NORMAL (Normal); URINE KETONE NEGATIVE (NEGATIVE); URINE LEUKOCYTE ESTERASE NEG Leu/uL (Negative); URINE PROTEIN NEGATIVE (NEGATIVE); URINE UROBILINOGEN NORMAL mg/dL (0.2-1.0)
[2016-07-01 12:51] LABS: WBC URINE 1 /hpf (0-5)
[2016-07-01 14:34] VITALS: O2SAT 96
--- NOTE | 2016-07-02 14:54 | PCM.PSYCH ---
Initial Psychiatric Evaluation - Initial Psychiatric Evaluation Type of Admission: Voluntary Legal Status: Capacity Chief Complaint (in patient's own words): I was hearing voices to kill myself History of Present Illness and Precipitating Events: Patient is a 56 years old male who is currently living alone and unemployed came to the hospital with depressed mood, disorganized behavior and suicidal ideation with plan to cut his wrist. Patient remained disorganized and internally preoccupied throughout the interview. He was superficially cooperative and guarded about the details. He remained a poor historian. He appeared delusional, disheveled and psychotic. Patient reports that yesterday he was hearing voices (auditory hallucinations command type) to kill himself by cutting his wrist. He became increasingly concerned and came to the hospital to get help. Patient also reports persecutory delusions that someone is following him. He reports irritability, anxiety and agitation. He depressed mood, feelings of hopelessness and helplessness. As per the patient he was feeling suicidal and thats why he came to the hospital to get help. He denies any visual hallucinations. He denies any drinking or any substance abuse. past medical history Current Medications: Active Medications Generic Name Dose Route Start Last Admin Trade Name Freq PRN Reason Stop Dose Admin Benztropine Mesylate 2 mg 07/01/16 18:36 Cogentin PO Q6 PRN EPS Diphenhydramine HCl 50 mg 07/01/16 18:36 Benadryl PO Q6 PRN Anxiety Haloperidol 5 mg 07/01/16 18:36 Haldol PO Q6 PRN Agitation Ibuprofen 600 mg 07/01/16 18:36 Motrin Tab PO Q6 PRN Pain, moderate (4-7) Past Psychiatric History - Past Psychiatric History Previous Treatment History: Inpatient Pertinent Medical Hx (Current Medical&Sleep Prob, Allergies): Allergies Allergy/AdvReac Type Severity Reaction Status Date / Time No Known Allergies Allergy Verified 07/01/16 10:47 QUEtiapine [SEROquel] 200 mg PO DAILY 05/10/16 Haloperidol [Haldol] 10 mg PO DAILY 05/29/16 Benztropine [Benztropine Mesylate] 2 mg PO DAILY 06/18/16 Ibuprofen [Motrin Tab] 1 tab PO Q6 PRN #15 tab 06/18/16 Review of Systems - Review of Systems All systems: reviewed and no additional remarkable complaints except - Psychiatric Psychiatric: Anxiety, Auditory Hallucinations, Irritability, Paranoia, Suicidal Ideation Mental Status Examination - Personal Presentation Personal Presentation: Looks older than stated age - Affect Affect: Constricted, Depressed - Motor Activity Motor Activity: Psychomotor Agitation - Reliability in Providing Information Reliability in Providing Information: Poor, due to alteration in thoughts, Poor , due to altered mood - Speech Speech: Disorganized - Formal Thought Process Formal Thought Process: Hallucinations, Delusions, Paranoia, Loosening of associations - Hallucinations/Delusions Hallucinations: Auditory Delusions: Persecution - Obsessions/Compulsions Obsessions: No Compulsions: No - Cognitive Functions Orientation: Person, Place, Situation, Time Sensorium: Alert Attention/Concentration: Attentive Abstract Thinking: [place] Estimate of Intelligence: Below average Judgement: Imparied, as evidence by: Poor judgement, Imparied, as evidence by: Lack of insight into illness - Risk Risk: Suicidal, Diminished functioning - Limitations Limitations: Living alone DSM 5 DX - DSM 5 DSM 5 Diagnosis: schizophrenia paranoid type continuous rule out schizoaffective disorder depressed type - Recommended/Plan of Treatment Treatment Recommendations and Plan of Treatment: Schizophrenia paranoid type continuous rule out schizoaffective disorder depressed type CBT Psychoeducation Supportive therapy, group therapy, individual therapy Haldol 5 mg by mouth twice a day Cogentin 1 mg by mouth twice a day Paxil 10 mg daily Klonopin 0.5 mg by mouth twice a day Trazodone 50 mg by mouth daily at bedtime - Smoking Cessation Smoking Cessation Initiated: No
[2016-07-03 09:06] VITALS: BP 118/80; PULSE 91; RESP 20; TEMP 98.2
--- NOTE | 2016-07-03 13:08 | PCM.PYCHDC ---
Mental Status Examination - Mental Status Examination Orientation: Person, Place, Situation, Time Memory: Intact Mood: Neutral Affect: Constricted Speech: Soft Attention: WNL Concentration: WNL Association: WNL Fund of Knowledge: WNL Formal Thought Process: No Impairment Description of patient's judgement and insight: good, fair Psychotic Thoughts and Behaviors: denies any AVH Suicidal Ideation: No Current Homicidal Ideation?: No Discharge Summary - Discharge Note Reason for Hospitalization: Patient is a 56 years old male who is currently living alone and unemployed came to the hospital with depressed mood, disorganized behavior and suicidal ideation with plan to cut his wrist. Patient remained disorganized and internally preoccupied throughout the interview. He was superficially cooperative and guarded about the details. He remained a poor historian. He appeared delusional, disheveled and psychotic. Patient reports that yesterday he was hearing voices (auditory hallucinations command type) to kill himself by cutting his wrist. He became increasingly concerned and came to the hospital to get help. Patient also reports persecutory delusions that someone is following him. He reports irritability, anxiety and agitation. He depressed mood, feelings of hopelessness and helplessness. As per the patient he was feeling suicidal and thats why he came to the hospital to get help. He denies any visual hallucinations. He denies any drinking or any substance abuse. Consultations:: List each consultation separately and include: 1. Reason for request. 2. Findings. 3. Follow-up Summary of Hospital Course include:: 1. Description of specific treatment plan utilized for patients during their course of treatmen. 2. Summarize the time- course for resolution of acute symptoms and/or regressed behaviors. 3. Describe issues identified and worked on during hospitalization. 4. Describe medication utilized. 5. Describe medical problems identified and treated. 6. Reassessment of suicide risk Summary of Hospital Course: During the course of his stay, patient (pt) started progressively improving and he no longer remained irritable, depressed, suicidal and paranoid. His mood and paranoia were improved and he started attending groups and meetings and started socializing. Patient denied any feelings of hopelessness, helplessness, and worthlessness, denied any problem with the sleep or appetite, denied suicidal ideation or homicidal ideation. Pt denied any auditory or visual hallucinations. Some changes were made in his current medications and patient was discharged on following medications. He tolerated these medications very well and denied any side effects. Disposition: HOME/ ROUTINE Follow-up Treatment Plan: - Final Diagnosis (DSM 5) Condition upon Discharge: FAIR DSM 5: Schizophrenia paranoid type continuous Disposition: AGAINST MEDICAL ADVICE Follow-up Treatment Plan: Education: Pt was educated and counseled about the risks and benefits of taking and not taking medications. Pt was educated and counseled about the risks of drinking and abusing drugs. Pt was educated and counseled to go to the ER or call 911 if pt develop suicidal ideation or homicidal ideation, worsening of symptoms or severe side effects of the meds. - Smoking Cessation Smoking Cessation Medication prescribed: No - Antipsychotic Medications Pt discharged on 2 or more routine antipsychotic medications: No
== END 2016-07-03 12:05 | disposition left against medical advice (07) | DRG 885 ==
LOC: C.ER 10:33 → C.5E 13:49
PROVIDERS: ADMIT Psychiatry & Neurology Psychiatry; ATTEND Psychiatry & Neurology Psychiatry
PROC: GZ3ZZZZ Medication Management (ICD-10-PCS; principal; 2016-07-01)
PROC: GZHZZZZ Group Psychotherapy (ICD-10-PCS; 2016-07-01)
PROC: GZ56ZZZ Individual Psychotherapy, Supportive (ICD-10-PCS; 2016-07-01)
DX: F20.0 Paranoid schizophrenia (principal); F25.1 Schizoaffective disorder, depressive type; R45.851 Suicidal ideations; G89.29 Other chronic pain; F60.9 Personality disorder, unspecified; F17.210 Nicotine dependence, cigarettes, uncomplicated

== ENCOUNTER 2016-07-04 19:28 | Observation (INO) | payer MEDICARE ==
[2016-07-04 19:29] VITALS: BMI 23.0
--- NOTE | 2016-07-04 19:43 | C.PDOC ---
History Of Present Illness Patient presents to the emergency room looking for a place to stay. Patient is homeless. Patient is well known to the ED. Patient denies any physical complaints. Time Seen by Provider: 07/04/16 19:42 Chief Complaint (Nursing): Psychiatric Evaluation History Per: Patient History/Exam Limitations: no limitations Onset/Duration Of Symptoms: Hrs Current Symptoms Are (Timing): Still Present Suicide/Self Injury Attempted (Context): None Modifying Factor(s): None Severity: None Recent travel outside of the [place]: No Past Medical History Reviewed: Historical Data, Nursing Documentation, Vital Signs Vital Signs: Last Vital Signs Temp 98 F 07/05/16 03:49 Pulse 80 07/05/16 03:49 Resp 20 07/05/16 03:49 BP 128/72 07/05/16 03:49 Pulse Ox 97 07/05/16 03:49 - Medical History PMH: Anxiety, Bipolar Disorder, Depression, Gastritis, Paranoia, Personality Disorder, Schizophrenia, Chronic Pain (abd) Denies: Diabetes, Hepatitis, HIV, HTN, Chronic Kidney Disease, Seizures, Sexually Transmitted Disease Surgical History: - [facility] Procedures APPLICATION OF SPLINT (04/09/14) CL FX REDUC-TIBIA/FIBULA (02/26/13) GROUP PSYCHOTHERAPY (07/01/16) INDIVID PSYCHOTHERAP NEC (12/17/13) INDIVIDUAL PSYCHOTHERAPY, BEHAVIORAL (01/29/16) INDIVIDUAL PSYCHOTHERAPY, SUPPORTIVE (07/01/16) MEDICATION MANAGEMENT (07/01/16) OTHER GROUP THERAPY (11/05/13) PSYCHIA INTERV/EVAL NEC (06/28/14) Family History: States: No Known Family Hx - Social History Hx Tobacco Use: Yes (heavy smoker) Hx Alcohol Use: No Hx Substance Use: No - Immunization History Hx Tetanus Toxoid Vaccination: Yes Hx Influenza Vaccination: Yes (2016) Hx Pneumococcal Vaccination: Yes Review Of Systems Constitutional: Positive for: Other (Looking for a place to stay). Negative for : Fever, Chills Gastrointestinal: Negative for: Nausea, Vomiting, Diarrhea Physical Exam - Physical Exam Appears: Non-toxic, No Acute Distress Skin: Warm, Dry Extremity: Normal ROM, No Tenderness Neurological/Psych: Oriented x3, Normal Speech ED Course And Treatment O2 Sat by Pulse Oximetry: 99 Pulse Ox Interpretation: Normal Reevaluation Time: 05:26 Reassessment Condition: Improved ED OBSERVATION Discharge: Yes Date of observation admission: 07/04/16 Time of observation admission: 19:45 - Observation admission statement Patient is being placed in observation because:: homeless - Goals of Observation Goals of observation are:: social service - Progress Note Progress Note: 07/04/16 19:45 vitals stable, no complaints 07/04/16 21:46 elzbieta complaints 07/04/16 23:46 vitals stable Disposition Counseled Patient/Family Regarding: Studies Performed, Diagnosis - Disposition Disposition: HOME/ ROUTINE Disposition Time: 19:42 Condition: GOOD - Clinical Impression Clinical Impression: Schizophrenia - Scribe Statement The provider has reviewed the documentation as recorded by the Leonard Girard Provider Scribe Attestation: All medical record entries made by the Leonard were at my direction and personally dictated by me. I have reviewed the chart and agree that the record accurately reflects my personal performance of the history, physical exam, medical decision making, and the department course for this patient. I have also personally directed, reviewed, and agree with the discharge instructions and disposition.
[2016-07-05 03:51] VITALS: BP 128/72; PULSE 80; RESP 20; TEMP 98
[2016-07-05 05:27] VITALS: O2SAT 99
== END 2016-07-05 05:27 | disposition home or self-care (01) ==
LOC: C.ER 19:28 → C.9OBSV 19:43
PROVIDERS: ADMIT Emergency Medicine; ATTEND Emergency Medicine
DX: Z59.0 Homelessness (principal); F32.9 Major depressive disorder, single episode, unspecified; F20.9 Schizophrenia, unspecified
CPT/HCPCS: 82948; 99285; G0378

== ENCOUNTER 2016-07-05 18:44 | Observation (INO) | payer MEDICARE ==
[2016-07-05 18:44] VITALS: BMI 23.0
--- NOTE | 2016-07-05 19:32 | C.PDOC ---
History Of Present Illness Patient presents to the ER asking for a place to stay for the night. Patient is homeless and denies any nausea, vomiting, fever, or trauma. Time Seen by Provider: 07/05/16 19:29 Chief Complaint (Nursing): Abdominal Pain History Per: Patient History/Exam Limitations: no limitations Onset/Duration Of Symptoms: Hrs Associated Symptoms: denies: Fever, Chills, Nausea, Vomiting Past Medical History Reviewed: Historical Data, Nursing Documentation, Vital Signs Vital Signs: Last Vital Signs Temp 98.2 F 07/06/16 00:00 Pulse 80 07/06/16 00:00 Resp 18 07/06/16 00:00 BP 121/78 07/06/16 00:00 Pulse Ox 100 07/06/16 00:00 - Medical History PMH: Anxiety, Bipolar Disorder, Depression, Gastritis, Paranoia, Personality Disorder, Schizophrenia, Chronic Pain (abd) Surgical History: - [facility] Procedures APPLICATION OF SPLINT (04/09/14) CL FX REDUC-TIBIA/FIBULA (02/26/13) GROUP PSYCHOTHERAPY (07/01/16) INDIVID PSYCHOTHERAP NEC (12/17/13) INDIVIDUAL PSYCHOTHERAPY, BEHAVIORAL (01/29/16) INDIVIDUAL PSYCHOTHERAPY, SUPPORTIVE (07/01/16) MEDICATION MANAGEMENT (07/01/16) OTHER GROUP THERAPY (11/05/13) PSYCHIA INTERV/EVAL NEC (06/28/14) Family History: States: No Known Family Hx - Social History Hx Tobacco Use: Yes (heavy smoker) Hx Alcohol Use: No Hx Substance Use: No - Immunization History Hx Tetanus Toxoid Vaccination: Yes Hx Influenza Vaccination: Yes (2016) Hx Pneumococcal Vaccination: Yes Review Of Systems Constitutional: Negative for: Fever, Chills Cardiovascular: Negative for: Palpitations Respiratory: Negative for: Cough, Shortness of Breath Gastrointestinal: Negative for: Nausea, Vomiting Physical Exam - Physical Exam Appears: Well, Non-toxic Skin: Warm, Dry Oral Mucosa: Moist Chest: Symmetrical Cardiovascular: Rhythm Regular Respiratory: No Rales, No Rhonchi, No Wheezing Gastrointestinal/Abdominal: Soft, No Tenderness Neurological/Psych: Oriented x3, Normal Speech, Normal Cognition ED Course And Treatment O2 Sat by Pulse Oximetry: 97 (Room air) Pulse Ox Interpretation: Normal Reevaluation Time: 00:32 Reassessment Condition: Improved ED OBSERVATION Discharge: Yes Date of observation admission: 07/05/16 Time of observation admission: 19:31 - Observation admission statement Patient is being placed in observation because:: Homeless - Goals of Observation Goals of observation are:: Social service Disposition Counseled Patient/Family Regarding: Studies Performed, Diagnosis, Need For Followup - Disposition Disposition: HOME/ ROUTINE Disposition Time: 19:30 Condition: FAIR - Clinical Impression Clinical Impression: Schizophrenia - Scribe Statement The provider has reviewed the documentation as recorded by the Madhavibalexis Gottlieb All medical record entries made by the Leonard were at my direction and personally dictated by me. I have reviewed the chart and agree that the record accurately reflects my personal performance of the history, physical exam, medical decision making, and the department course for this patient. I have also personally directed, reviewed, and agree with the discharge instructions and disposition.
[2016-07-05 20:26] VITALS: RESP 18
[2016-07-06 00:24] VITALS: BP 121/78; PULSE 80; TEMP 98.2
[2016-07-06 00:33] VITALS: O2SAT 97
== END 2016-07-06 00:37 | disposition home or self-care (01) ==
LOC: C.ER 18:44 → C.9OBSV 19:31
PROVIDERS: ADMIT Emergency Medicine; ATTEND Emergency Medicine
DX: F20.9 Schizophrenia, unspecified (principal); F33.9 Major depressive disorder, recurrent, unspecified; Z59.0 Homelessness
CPT/HCPCS: 99284; G0378

== ENCOUNTER 2016-07-06 17:38 | Observation (INO) | payer MEDICARE ==
[2016-07-06 17:39] VITALS: BMI 23.0
[2016-07-06 17:58] VITALS: TEMP 98.1; O2SAT 98
--- NOTE | 2016-07-06 19:21 | C.PDOC ---
History Of Present Illness 56 year old male presents to the ED with complaints of hearing voices and seeking a place to sleep. Patient denies any other complaints at this time. Time Seen by Provider: 07/06/16 19:08 Chief Complaint (Nursing): Psychiatric Evaluation History/Exam Limitations: no limitations Onset/Duration Of Symptoms: Hrs Current Symptoms Are (Timing): Still Present Past Medical History Vital Signs: Last Vital Signs Temp 98.1 F 07/06/16 17:56 Pulse 98 H 07/06/16 17:56 Resp 18 07/06/16 17:56 BP 131/75 07/06/16 17:56 Pulse Ox 98 07/06/16 19:21 - Medical History PMH: Anxiety, Bipolar Disorder, Depression, Gastritis, Paranoia, Personality Disorder, Schizophrenia, Chronic Pain (abd) Surgical History: - [facility] Procedures APPLICATION OF SPLINT (04/09/14) CL FX REDUC-TIBIA/FIBULA (02/26/13) GROUP PSYCHOTHERAPY (07/01/16) INDIVID PSYCHOTHERAP NEC (12/17/13) INDIVIDUAL PSYCHOTHERAPY, BEHAVIORAL (01/29/16) INDIVIDUAL PSYCHOTHERAPY, SUPPORTIVE (07/01/16) MEDICATION MANAGEMENT (07/01/16) OTHER GROUP THERAPY (11/05/13) PSYCHIA INTERV/EVAL NEC (06/28/14) Family History: States: Unknown Family Hx - Social History Hx Tobacco Use: Yes (heavy smoker) Hx Alcohol Use: No Hx Substance Use: No - Immunization History Hx Tetanus Toxoid Vaccination: Yes Hx Influenza Vaccination: Yes (2017) Hx Pneumococcal Vaccination: Yes Review Of Systems Constitutional: Negative for: Fever, Chills Respiratory: Negative for: Shortness of Breath Gastrointestinal: Negative for: Nausea, Vomiting, Abdominal Pain, Diarrhea Physical Exam - Physical Exam Additional Physical Exam Comments: Constitutional: No acute distress. Head: Normocephalic. Atraumatic. Eyes: PERRL. ENT: Moist mucous membranes. Neck: Supple. Cardiovascular: Regular rate. Radial pulses 2+ bilaterally. Chest: No tenderness. Respiratory: Clear to auscultation bilaterally. GI: Soft. Nontender. Nondistended. Back: No CVA tenderness. Musculoskeletal: No tenderness or swelling of extremities. Skin: No rash. Neurologic: Alert, no focal deficit. ED Course And Treatment O2 Sat by Pulse Oximetry: 98 Medical Decision Making Medical Decision Making: Patient walked out of ER. Disposition - Disposition Disposition: ELOPEMENT - ER ONLY Disposition Time: 19:33 Condition: STABLE - Clinical Impression Clinical Impression: Medical assessment - Scribe Statement The provider has reviewed the documentation as recorded by the Scribe Sujatha Ralph All medical record entries made by the Madhavibe were at my direction and personally dictated by me. I have reviewed the chart and agree that the record accurately reflects my personal performance of the history, physical exam, medical decision making, and the department course for this patient. I have also personally directed, reviewed, and agree with the discharge instructions and disposition.
[2016-07-06 19:55] VITALS: BP 130/70; PULSE 70; RESP 14
== END 2016-07-06 19:35 | disposition home or self-care (01) ==
LOC: C.ER 17:38 → C.9OBSV 19:19
PROVIDERS: ADMIT Student in an Organized Health Care Education/Training Program; ATTEND Student in an Organized Health Care Education/Training Program
DX: F32.9 Major depressive disorder, single episode, unspecified (principal); F20.9 Schizophrenia, unspecified; Z59.0 Homelessness
CPT/HCPCS: 99283; G0378

== ENCOUNTER 2016-07-07 01:23 | Emergency (ER) | payer MEDICARE ==
[2016-07-07 01:23] VITALS: BMI 23.0
[2016-07-07 02:17] VITALS: RESP 18; O2SAT 97
--- NOTE | 2016-07-07 04:02 | C.PDOC ---
History Of Present Illness 56 year old male presents to the ED with complaints of hearing voices and seeking a place to sleep. Patient denies any other complaints at this time. Chief Complaint (Nursing): Medical Clearance History Per: Patient History/Exam Limitations: no limitations Onset/Duration Of Symptoms: Hrs Current Symptoms Are (Timing): Still Present Past Medical History Reviewed: Historical Data, Nursing Documentation, Vital Signs Vital Signs: Last Vital Signs Temp 98.3 F 07/07/16 02:07 Pulse 81 07/07/16 02:07 Resp 18 07/07/16 02:07 BP 113/72 07/07/16 02:07 Pulse Ox 97 07/07/16 06:01 - Medical History PMH: Anxiety, Bipolar Disorder, Depression, Gastritis, Paranoia, Personality Disorder, Schizophrenia, Chronic Pain (abd) Surgical History: - [facility] Procedures APPLICATION OF SPLINT (04/09/14) CL FX REDUC-TIBIA/FIBULA (02/26/13) GROUP PSYCHOTHERAPY (07/01/16) INDIVID PSYCHOTHERAP NEC (12/17/13) INDIVIDUAL PSYCHOTHERAPY, BEHAVIORAL (01/29/16) INDIVIDUAL PSYCHOTHERAPY, SUPPORTIVE (07/01/16) MEDICATION MANAGEMENT (07/01/16) OTHER GROUP THERAPY (11/05/13) PSYCHIA INTERV/EVAL NEC (06/28/14) Family History: States: Unknown Family Hx - Social History Hx Tobacco Use: Yes (heavy smoker) Hx Alcohol Use: No Hx Substance Use: No - Immunization History Hx Tetanus Toxoid Vaccination: Yes Hx Influenza Vaccination: Yes (2016) Hx Pneumococcal Vaccination: Yes Review Of Systems Except As Marked, All Systems Reviewed And Found Negative. Constitutional: Negative for: Fever, Chills Cardiovascular: Negative for: Palpitations Respiratory: Negative for: Cough Gastrointestinal: Negative for: Nausea, Vomiting, Diarrhea Physical Exam - Physical Exam Appears: Well, Non-toxic Skin: Normal Color, Warm, Dry Head: Atraumatic, Normacephalic Chest: Symmetrical Cardiovascular: Rhythm Regular Respiratory: Normal Breath Sounds, No Rales, No Rhonchi, No Wheezing Gastrointestinal/Abdominal: Soft, No Tenderness Neurological/Psych: Oriented x3, Normal Speech, Normal Cognition ED Course And Treatment O2 Sat by Pulse Oximetry: 97 Progress Note: Patient came to ED asking for place to sleep and c/o auditory hallucinations. At 6 am patient is alert and awake and is stable to be d/c home. Disposition - Disposition Disposition Time: 05:59 Condition: STABLE Additional Instructions: Follow up with PMD within 1-2 days. Return to ED if feel worse. Forms: General Discharge Instructions - Clinical Impression Clinical Impression: Homeless - Scribe Statement The provider has reviewed the documentation as recorded by the Scribe Howard Gottlieb All medical record entries made by the Madhavibalexis were at my direction and personally dictated by me. I have reviewed the chart and agree that the record accurately reflects my personal performance of the history, physical exam, medical decision making, and the department course for this patient. I have also personally directed, reviewed, and agree with the discharge instructions and disposition.
[2016-07-07 06:09] VITALS: BP 128/68; PULSE 86; TEMP 98.2
== END 2016-07-07 06:10 | disposition home or self-care (01) ==
LOC: C.ER 01:23
DX: R44.0 Auditory hallucinations (principal); Z59.0 Homelessness

== ENCOUNTER 2016-07-11 17:42 | Emergency (ER) | payer MEDICARE ==
[2016-07-11 17:44] VITALS: BMI 23.0
[2016-07-11 17:52] VITALS: BP 124/84; PULSE 95; RESP 20; TEMP 97.4; O2SAT 100
--- NOTE | 2016-07-11 18:36 | C.PDOC ---
History Of Present Illness 56 year old male with a history of schizophrenia, presents to the ED with complaints of hearing voices. Patient has a history of similar complaints and denies suicidal ideation , homicidal ideation, or any other complaints at this time. Time Seen by Provider: 07/11/16 18:33 Chief Complaint (Nursing): Abdominal Pain History Per: Patient History/Exam Limitations: no limitations Onset/Duration Of Symptoms: Days Current Symptoms Are (Timing): Still Present Severity: Mild Past Medical History Reviewed: Historical Data, Nursing Documentation, Vital Signs Vital Signs: Last Vital Signs Temp 97.4 F L 07/11/16 17:49 Pulse 95 H 07/11/16 17:49 Resp 20 07/11/16 17:49 BP 124/84 07/11/16 17:49 Pulse Ox 100 07/11/16 18:36 - Medical History PMH: Anxiety, Bipolar Disorder, Depression, Gastritis, Paranoia, Personality Disorder, Schizophrenia, Chronic Pain (abd) Surgical History: - [facility] Procedures APPLICATION OF SPLINT (04/09/14) CL FX REDUC-TIBIA/FIBULA (02/26/13) GROUP PSYCHOTHERAPY (07/01/16) INDIVID PSYCHOTHERAP NEC (12/17/13) INDIVIDUAL PSYCHOTHERAPY, BEHAVIORAL (01/29/16) INDIVIDUAL PSYCHOTHERAPY, SUPPORTIVE (07/01/16) MEDICATION MANAGEMENT (07/01/16) OTHER GROUP THERAPY (11/05/13) PSYCHIA INTERV/EVAL NEC (06/28/14) Family History: States: Unknown Family Hx - Social History Hx Tobacco Use: Yes (heavy smoker) Hx Alcohol Use: Yes Hx Substance Use: No - Immunization History Hx Tetanus Toxoid Vaccination: Yes Hx Influenza Vaccination: Yes (2016) Hx Pneumococcal Vaccination: Yes Review Of Systems Except As Marked, All Systems Reviewed And Found Negative. Constitutional: Negative for: Fever, Chills Cardiovascular: Negative for: Chest Pain Respiratory: Negative for: Shortness of Breath Gastrointestinal: Negative for: Vomiting, Abdominal Pain Psych: Positive for: Other (+hearing voices). Negative for: Suicidal ideation Physical Exam - Physical Exam Appears: Non-toxic, No Acute Distress Skin: Warm, Dry Head: Atraumatic, Normacephalic Eye(s): bilateral: Normal Inspection Oral Mucosa: Moist Teeth: No Normal Dentition (poor dentition) Chest: Symmetrical Cardiovascular: Rhythm Regular Respiratory: Normal Breath Sounds, No Accessory Muscle Use Neurological/Psych: Oriented x3, Other (+Bizarre + Cooperative) ED Course And Treatment O2 Sat by Pulse Oximetry: 100 (room air) Pulse Ox Interpretation: Normal Medical Decision Making Medical Decision Making: no acute issues malingering. Disposition Doctor Will See Patient In The: Office Counseled Patient/Family Regarding: Studies Performed, Diagnosis - Disposition Referrals: [facility] [Outside] [facility] [email or web address] [facility] [Outside] Disposition: HOME/ ROUTINE Disposition Time: 18:35 Condition: GOOD Forms: General Discharge Instructions - Clinical Impression Clinical Impression: Malingerer - Scribe Statement The provider has reviewed the documentation as recorded by the Scribe Catina Kang. Provider Attestation: All medical record entries made by the Scribe were at my direction and personally dictated by me. I have reviewed the chart and agree that the record accurately reflects my personal performance of the history, physical exam, medical decision making, and the department course for this patient. I have also personally directed, reviewed, and agree with the discharge instructions and disposition.
== END 2016-07-11 19:12 | disposition home or self-care (01) ==
LOC: C.ER 17:42
DX: Z76.5 Malingerer [conscious simulation] (principal)

== ENCOUNTER 2016-07-15 18:18 | Emergency (ER) | payer MEDICARE ==
[2016-07-15 18:18] VITALS: BMI 23.0
[2016-07-15 18:56] VITALS: RESP 18; O2SAT 96
--- NOTE | 2016-07-15 19:34 | C.PDOC ---
History Of Present Illness 56 y/o male presents to the ED with complains of "stinky feet" and requesting a sandwich. Pt has no other complaints at this time. Time Seen by Provider: 07/15/16 19:06 Chief Complaint (Nursing): Lower Extremity Problem/Injury History Per: Patient History/Exam Limitations: no limitations Current Symptoms Are (Timing): Still Present Severity: Mild Past Medical History Reviewed: Historical Data, Nursing Documentation, Vital Signs Vital Signs: Last Vital Signs Temp 97.8 F 07/15/16 19:20 Pulse 74 07/15/16 19:20 Resp 18 07/15/16 19:20 BP 103/65 07/15/16 19:20 Pulse Ox 96 07/15/16 20:12 - Medical History PMH: Anxiety, Bipolar Disorder, Depression, Gastritis, Paranoia, Personality Disorder, Schizophrenia, Chronic Pain (abd) Surgical History: - [facility] Procedures APPLICATION OF SPLINT (04/09/14) CL FX REDUC-TIBIA/FIBULA (02/26/13) GROUP PSYCHOTHERAPY (07/01/16) INDIVID PSYCHOTHERAP NEC (12/17/13) INDIVIDUAL PSYCHOTHERAPY, BEHAVIORAL (01/29/16) INDIVIDUAL PSYCHOTHERAPY, SUPPORTIVE (07/09/16) MEDICATION MANAGEMENT (07/01/16) OTHER GROUP THERAPY (11/05/13) PSYCHIA INTERV/EVAL NEC (06/28/14) Family History: States: No Known Family Hx - Social History Hx Tobacco Use: Yes (heavy smoker) Hx Alcohol Use: Yes Hx Substance Use: No - Immunization History Hx Tetanus Toxoid Vaccination: Yes Hx Influenza Vaccination: Yes (2016) Hx Pneumococcal Vaccination: Yes Review Of Systems Except As Marked, All Systems Reviewed And Found Negative. Constitutional: Negative for: Fever Cardiovascular: Negative for: Chest Pain, Palpitations Respiratory: Negative for: Cough, Shortness of Breath Gastrointestinal: Negative for: Nausea, Vomiting, Abdominal Pain, Diarrhea Skin: Positive for: Other (Stinky feet) Neurological: Negative for: Headache Physical Exam - Physical Exam Appears: Well, Non-toxic, No Acute Distress Skin: Warm, Dry, No Rash Head: Normacephalic Oral Mucosa: Moist Cardiovascular: Rhythm Regular Respiratory: Normal Breath Sounds, No Rales, No Rhonchi, No Wheezing Gastrointestinal/Abdominal: Normal Exam, Bowel Sounds, Soft, No Tenderness Extremity: Normal ROM, Other (feet normal in appearance but malodorous) Extremity: Bilateral: Atraumatic Neurological/Psych: Oriented x3 Gait: Steady ED Course And Treatment O2 Sat by Pulse Oximetry: 96 (on room air) Pulse Ox Interpretation: Normal Progress Note: Patient AAOx3, ambulating normally, has no physical complaints. Will discharge. Disposition Counseled Patient/Family Regarding: Studies Performed, Diagnosis, Need For Followup - Disposition Referrals: [facility] [Outside] Disposition: HOME/ ROUTINE Disposition Time: 19:20 Condition: STABLE Additional Instructions: FOLLOW UP IN THE CLINIC IN 1-2 DAYS RETURN TO ER IF YOU HAVE WORSENING SYMPTOMS Forms: General Discharge Instructions Print Language: [id number] - Clinical Impression Clinical Impression: Smelly feet, Excessive hunger - Scribe Statement The provider has reviewed the documentation as recorded by the Leonard Tucker Provider Attestation: All medical record entries made by the Madhavibalexis were at my direction and personally dictated by me. I have reviewed the chart and agree that the record accurately reflects my personal performance of the history, physical exam, medical decision making, and the department course for this patient. I have also personally directed, reviewed, and agree with the discharge instructions and disposition.
[2016-07-15 19:46] VITALS: BP 103/65; PULSE 74; TEMP 97.8
== END 2016-07-15 19:35 | disposition home or self-care (01) ==
LOC: C.ER 18:18
DX: T73.0XXA Starvation, initial encounter (principal); X58.XXXA Exposure to other specified factors, initial encounter; R29.898 Other symptoms and signs involving the musculoskeletal system

== ENCOUNTER 2016-07-17 18:11 | Emergency (ER) | payer MEDICARE ==
[2016-07-17 18:11] VITALS: BMI 23.0
[2016-07-17 18:17] VITALS: O2SAT 96
--- NOTE | 2016-07-17 20:21 | C.PDOC ---
History Of Present Illness Pt is well known to the ED and is at his baseline. He is presenting in the usual manner and states that he is hungry. Time Seen by Provider: 07/17/16 18:46 Chief Complaint (Nursing): Medical Clearance History Per: Patient Onset/Duration Of Symptoms: Unknown Current Symptoms Are (Timing): Still Present Severity: Mild Reports Recently: Seen In ED Additional History Per: Prior Records Past Medical History Reviewed: Historical Data, Nursing Documentation, Vital Signs Vital Signs: Last Vital Signs Temp 97.6 F 07/17/16 22:23 Pulse 72 07/17/16 22:23 Resp 16 07/17/16 22:23 BP 120/71 07/17/16 22:23 Pulse Ox 96 07/17/16 22:23 - Medical History PMH: Anxiety, Bipolar Disorder, Depression, Gastritis, Paranoia, Personality Disorder, Schizophrenia, Chronic Pain (abd) Surgical History: - [facility] Procedures APPLICATION OF SPLINT (04/09/14) CL FX REDUC-TIBIA/FIBULA (02/26/13) GROUP PSYCHOTHERAPY (07/01/16) INDIVID PSYCHOTHERAP NEC (12/17/13) INDIVIDUAL PSYCHOTHERAPY, BEHAVIORAL (01/29/16) INDIVIDUAL PSYCHOTHERAPY, SUPPORTIVE (07/09/16) MEDICATION MANAGEMENT (07/01/16) OTHER GROUP THERAPY (11/05/13) PSYCHIA INTERV/EVAL NEC (06/28/14) Family History: States: Unknown Family Hx - Social History Hx Tobacco Use: Yes (heavy smoker) Hx Alcohol Use: Yes Hx Substance Use: No - Immunization History Hx Tetanus Toxoid Vaccination: Yes Hx Influenza Vaccination: Yes (2016) Hx Pneumococcal Vaccination: Yes Review Of Systems Constitutional: Negative for: Fever Cardiovascular: Negative for: Chest Pain Respiratory: Negative for: Shortness of Breath Gastrointestinal: Negative for: Vomiting Musculoskeletal: Negative for: Neck Pain Neurological: Negative for: Weakness, Seizures Psych: Negative for: Suicidal ideation Physical Exam - Physical Exam Appears: Non-toxic, No Acute Distress Skin: Normal Color, Warm, Dry, No Rash Head: Atraumatic, Normacephalic Eye(s): bilateral: PERRL, EOMI Neck: Normal ROM, Supple Cardiovascular: Rhythm Regular Respiratory: Normal Breath Sounds, No Accessory Muscle Use Gastrointestinal/Abdominal: Soft, No Tenderness, No Distention Back: No CVA Tenderness Extremity: Normal ROM, No Deformity Neurological/Psych: Oriented x3, Normal Motor, Normal Sensation ED Course And Treatment O2 Sat by Pulse Oximetry: 96 Pulse Ox Interpretation: Normal Progress Note: Pt ate food in the ED. Resting comfortably. Reassessment Condition: Improved Disposition Counseled Patient/Family Regarding: Diagnosis, Need For Followup, Smoking Cessation - Disposition Referrals: [facility] [Outside] Disposition: HOME/ ROUTINE Disposition Time: 23:36 Condition: IMPROVED Additional Instructions: Follow up with your doctor or in the clinic. Return to the ER if you develop suicidal or homicidal thoughts, worsening of symptoms or if you have any other concerns. Instructions: Schizophrenia (ED) - Clinical Impression Clinical Impression: Schizophrenia, chronic condition
[2016-07-17 22:24] VITALS: BP 120/71; PULSE 72; RESP 16; TEMP 97.6
== END 2016-07-17 23:40 | disposition home or self-care (01) ==
LOC: C.ER 18:11
DX: F20.9 Schizophrenia, unspecified (principal)

== ENCOUNTER 2016-07-20 23:15 | Observation (INO) | payer MEDICARE ==
[2016-07-20 23:15] VITALS: BMI 23.0
--- NOTE | 2016-07-20 23:39 | C.PDOC ---
History Of Present Illness Patient presents to the ED seeking a place to sleep. Patient denies any other complaints at this time. Time Seen by Provider: 07/20/16 23:38 Chief Complaint (Nursing): Psychiatric Evaluation History Per: Patient History/Exam Limitations: other (patient fell asleep upon questioning ) Past Medical History Reviewed: Historical Data, Nursing Documentation, Vital Signs Vital Signs: Last Vital Signs Temp 98.6 F 07/21/16 04:43 Pulse 81 07/21/16 04:43 Resp 18 07/21/16 04:43 BP 108/79 07/21/16 04:43 Pulse Ox 98 07/21/16 04:43 - Medical History PMH: Anxiety, Bipolar Disorder, Depression, Diabetes (type 2), Gastritis, Paranoia, Personality Disorder, Schizophrenia, Chronic Pain (abd) Surgical History: - [facility] Procedures APPLICATION OF SPLINT (04/09/14) CL FX REDUC-TIBIA/FIBULA (02/26/13) GROUP PSYCHOTHERAPY (07/01/16) INDIVID PSYCHOTHERAP NEC (12/17/13) INDIVIDUAL PSYCHOTHERAPY, BEHAVIORAL (01/29/16) INDIVIDUAL PSYCHOTHERAPY, SUPPORTIVE (07/09/16) MEDICATION MANAGEMENT (07/01/16) OTHER GROUP THERAPY (11/05/13) PSYCHIA INTERV/EVAL NEC (06/28/14) Family History: States: No Known Family Hx - Social History Hx Tobacco Use: Yes (heavy smoker) Hx Alcohol Use: Yes Hx Substance Use: No - Immunization History Hx Tetanus Toxoid Vaccination: Yes Hx Influenza Vaccination: Yes (2016) Hx Pneumococcal Vaccination: Yes Review Of Systems Constitutional: Negative for: Fever, Chills, Sweats Cardiovascular: Negative for: Chest Pain Respiratory: Negative for: Cough, Shortness of Breath Gastrointestinal: Negative for: Nausea, Vomiting, Abdominal Pain, Diarrhea Psych: Negative for: Suicidal ideation Physical Exam - Physical Exam Appears: Non-toxic, No Acute Distress, Other (fell asleep upon questioning ) Skin: Warm, Dry Neck: Normal ROM, Supple Cardiovascular: Rhythm Regular Respiratory: No Accessory Muscle Use, No Rales, No Rhonchi, No Stridor, No Wheezing Gastrointestinal/Abdominal: Soft, No Tenderness, No Distention, No Guarding, No Rebound Extremity: Normal ROM, No Tenderness Neurological/Psych: Oriented x3, Other (denies ideations of suicide or homicide) ED Course And Treatment O2 Sat by Pulse Oximetry: 95 Pulse Ox Interpretation: Normal Reevaluation Time: 04:51 Reassessment Condition: Improved Disposition Counseled Patient/Family Regarding: Studies Performed, Diagnosis, Need For Followup - Disposition Disposition: HOME/ ROUTINE Disposition Time: 23:38 Condition: FAIR - Clinical Impression Clinical Impression: Schizophrenia - Scribe Statement The provider has reviewed the documentation as recorded by the Scribe Provider Attestation: Sujatha Ralph All medical record entries made by the Madhavibalexis were at my direction and personally dictated by me. I have reviewed the chart and agree that the record accurately reflects my personal performance of the history, physical exam, medical decision making, and the department course for this patient. I have also personally directed, reviewed, and agree with the discharge instructions and disposition.
[2016-07-20 23:49] VITALS: RESP 18
[2016-07-21 04:46] VITALS: BP 108/79; PULSE 81; TEMP 98.6
[2016-07-21 04:53] VITALS: O2SAT 95
== END 2016-07-21 04:52 | disposition home or self-care (01) ==
LOC: C.ER 23:15 → C.9OBSV 23:40
PROVIDERS: ADMIT Emergency Medicine; ATTEND Emergency Medicine
DX: F20.9 Schizophrenia, unspecified (principal); Z59.0 Homelessness; F17.210 Nicotine dependence, cigarettes, uncomplicated; E11.9 Type 2 diabetes mellitus without complications; F60.9 Personality disorder, unspecified; F22 Delusional disorders
CPT/HCPCS: G0378 ×2

== ENCOUNTER 2016-07-22 10:01 | Inpatient (IN) | payer MEDICARE ==
[2016-07-22 10:01] VITALS: BMI 23.0
--- NOTE | 2016-07-22 12:11 | C.PDOC ---
History Of Present Illness 56 y/o male presents to the ED with complaints of feeling depressed and states he "doesn't want to live", is asking for help. Pt denies any specific suicidal plan, and has no physical complaints. Time Seen by Provider: 07/22/16 10:10 Chief Complaint (Nursing): Psychiatric Evaluation History Per: Patient History/Exam Limitations: no limitations Onset/Duration Of Symptoms: Days Current Symptoms Are (Timing): Still Present Severity: Moderate Associated Symptoms: Depression, Suicidal Thoughts. denies: Suicidal Plan Involuntary Hold By: Emergency Physician Past Medical History Reviewed: Historical Data, Nursing Documentation, Vital Signs Vital Signs: Last Vital Signs Temp 98.3 F 07/26/16 08:40 Pulse 86 07/26/16 08:40 Resp 18 07/26/16 08:40 BP 117/79 07/26/16 08:40 Pulse Ox 100 07/27/16 16:54 - Medical History PMH: Anxiety, Bipolar Disorder, Depression, Diabetes (type 2), Gastritis, Paranoia, Personality Disorder, Schizophrenia, Chronic Pain (abd) Surgical History: - [facility] Procedures APPLICATION OF SPLINT (04/09/14) CL FX REDUC-TIBIA/FIBULA (02/26/13) GROUP PSYCHOTHERAPY (07/01/16) INDIVID PSYCHOTHERAP NEC (12/17/13) INDIVIDUAL PSYCHOTHERAPY, BEHAVIORAL (01/29/16) INDIVIDUAL PSYCHOTHERAPY, SUPPORTIVE (07/09/16) MEDICATION MANAGEMENT (07/01/16) OTHER GROUP THERAPY (11/05/13) PSYCHIA INTERV/EVAL NEC (06/28/14) Family History: States: No Known Family Hx - Social History Hx Tobacco Use: Yes (heavy smoker) Hx Alcohol Use: Yes Hx Substance Use: No - Immunization History Hx Tetanus Toxoid Vaccination: Yes Hx Influenza Vaccination: Yes (2016) Hx Pneumococcal Vaccination: Yes Review Of Systems Except As Marked, All Systems Reviewed And Found Negative. Constitutional: Negative for: Fever Cardiovascular: Negative for: Chest Pain, Palpitations Respiratory: Negative for: Cough, Shortness of Breath Gastrointestinal: Negative for: Nausea, Vomiting, Abdominal Pain, Diarrhea Psych: Positive for: Depression, Suicidal ideation Physical Exam - Physical Exam Appears: Well, Non-toxic, No Acute Distress, Other (tearful ) Skin: Warm, Dry, No Rash Head: Normacephalic Oral Mucosa: Moist Neck: Normal ROM Cardiovascular: Rhythm Regular Respiratory: Normal Breath Sounds, No Rales, No Rhonchi, No Wheezing Gastrointestinal/Abdominal: Normal Exam, Bowel Sounds, Soft, No Tenderness Extremity: Bilateral: Atraumatic Neurological/Psych: Oriented x3 Gait: Steady ED Course And Treatment - Laboratory Results Result Diagrams: 07/22/16 13:08 07/22/16 13:08 O2 Sat by Pulse Oximetry: 100 (on room air) Pulse Ox Interpretation: Normal Progress Note: Plan: Blood work, UA, UDS ordered and reviewed. 2:20pm- Patient medically cleared. 2:30pm- Patient accepted by Dr. Roth for schizophrenia. Disposition - Disposition Disposition: HOSPITALIZED Disposition Time: 14:30 Condition: STABLE - Clinical Impression Clinical Impression: Schizophrenia - Scribe Statement The provider has reviewed the documentation as recorded by the Scribe Ranjit Phillips Provider Attestation: All medical record entries made by the Scribe were at my direction and personally dictated by me. I have reviewed the chart and agree that the record accurately reflects my personal performance of the history, physical exam, medical decision making, and the department course for this patient. I have also personally directed, reviewed, and agree with the discharge instructions and disposition. Decision To Admit - Pt Status Changed To: Hospital Disposition Of: Inpatient - Admit Certification Admit to Inpatient:: After my assessment, the patient will require hospitalization for at least two midnights. This is because of the severity of symptoms shown, intensity of services needed, and/or the medical risk in this patient being treated as an outpatient. - InPatient: Physician Admission Certification: I certify that this patient requires 2 or more midnights of care for the following reason:: SEE NOTES - . Bed Request Type: Psychiatry Admitting Physician: Tanya Roth Patient Diagnosis: Schizophrenia
[2016-07-22 13:14] LABS: BASO % 0.7 % (0.0-2.0); EOS # 0.1 K/uL (0.0-0.7); EOS % 1.5 % (0.0-4.0); HEMATOCRIT 39.5 % (35.0-51.0); LYMPH # 1.8 K/uL (1.0-4.3); MEAN CELL VOLUME 90.9 fL (80.0-94.0); MEAN CORPUSCULAR HEMOGLOBIN 30.5 pg (27.0-31.0); MEAN CORPUSCULAR HGB CONC 33.5 g/dL (33.0-37.0); MEAN PLATELET VOLUME 7.7 fL (7.2-11.7); MONO # 0.4 K/uL (0.0-0.8); MONO % 5.6 % (0.0-10.0); RED CELL DISTRIBUTION WIDTH 13.5 % (11.5-14.5); WHITE BLOOD COUNT 6.4 K/uL (4.8-10.8)
[2016-07-22 13:34] LABS: CHLORIDE 99 mmol/L (98-107); SODIUM 139 mmol/L (132-148)
[2016-07-22 13:35] LABS: POTASSIUM 3.6 mmol/L (3.6-5.2)
[2016-07-22 13:37] LABS: ALB/GLOB RATIO 1.5 (1.0-2.1); ALKALINE PHOSPHATASE 59 U/L (38-126); ALT/SGPT 14 U/L (21-72); AST/SGOT 22 U/L (17-59); BILIRUBIN,TOTAL 0.4 mg/dL (0.2-1.3); BLOOD UREA NITROGEN 13 mg/dL (9-20); CARBON DIOXIDE 29 mmol/L (22-30); GFR AFRICAN-AMERICAN > 60; GLUCOSE,RANDOM 140 mg/dL (75-110); TOTAL PROTEIN 6.4 g/dL (6.3-8.3)
[2016-07-22 13:38] LABS: ALCOHOL SERUM < 10 mg/dl (0-10); CALCIUM 8.8 mg/dl (8.6-10.4)
[2016-07-22 13:55] LABS: RBC URINE < 1 /hpf (0-3); URINE BILIRUBIN NEGATIVE (NEGATIVE); URINE BLOOD NEGATIVE (NEGATIVE); URINE COLOR Straw (YELLOW); URINE GLUCOSE (UA) NORMAL (Normal); URINE KETONE NEGATIVE (NEGATIVE); URINE LEUKOCYTE ESTERASE NEG Leu/uL (Negative); URINE PROTEIN NEGATIVE (NEGATIVE); URINE UROBILINOGEN NORMAL mg/dL (0.2-1.0); WBC URINE < 1 /hpf (0-5)
--- NOTE | 2016-07-23 14:44 | PCM.PSYCH ---
Initial Psychiatric Evaluation - Initial Psychiatric Evaluation Type of Admission: Voluntary Legal Status: Capacity Chief Complaint (in patient's own words): I was hearing voices and they told me to kill myself. I almost cut myself". Patient's Reaction to Hospitalization: Positive History of Present Illness and Precipitating Events: Patient was a 56 year old male self referred to [facility] due to reported auditory hallucinations and suicidal ideation. Patient stated " I was hearing voices and they told me to kill myself. I almost cut my self". Pt is seen, chart reviewed, case discussed. Pt was uncooperative during history taking and refused to answer some questions. Patient was a 56 year old male self referred to [facility] due to reported auditory hallucinations and suicidal ideation. Patient stated "I was hearing voices and they told me to kill myself. I almost cut myself". Pt is single and does not have children. Pt lives with sister in [place] and receives social security disability. 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 Pt has been hospitalized in the past multiple times for schizophrenia. Pt mood today is irritable and guarded. He appeared disorganized and internally preoccupied. He mentioned that he stopped taking his medications soon after taking his meds and then he started hearing voices. Pt denies visual hallucinations, but admits to auditory hallucinations. Pt denies using drugs. Pt admits to smoking 1 pack of cigarettes a day. Pt states that he does not see a psychiatrist. Pt currently complains of abdominal pain, headache and shaking. Past Psychiatric History: Schizophrenia Past Family Psychiatric History: unknown Past Substance or Alcohol Abuse: Pt denies ETOH abuse Past Medical History: Denies Current Medications: Active Medications Generic Name Dose Route Start Last Admin Trade Name Freq PRN Reason Stop Dose Admin Benztropine Mesylate 1 mg 07/22/16 15:58 Cogentin PO Q6 PRN eps Benztropine Mesylate 2 mg 07/22/16 23:36 Cogentin PO Q6 PRN Extra Pyramidal Symptoms Diphenhydramine HCl 50 mg 07/22/16 23:36 Benadryl PO Q6 PRN Extra Pyramidal Symptoms Haloperidol 10 mg 07/22/16 18:00 07/22/16 21:06 Haldol PO Not Given QPM ETELVINA Haloperidol 5 mg 07/22/16 23:36 Haldol PO Q8 PRN Moderate Agitation Haloperidol Lactate 5 mg 07/22/16 23:36 Haldol IM Q8 PRN Moderate Agitation Loperamide HCl 2 mg 07/22/16 23:36 Imodium PO Q8 PRN Diarrhea Ondansetron HCl 4 mg 07/22/16 23:36 Zofran Tab PO Q8H PRN Nausea/Vomiting Quetiapine Fumarate 200 mg 07/22/16 22:00 07/22/16 21:[address] [facility] Trazodone HCl 50 mg 07/23/16 22:00 Desyrel PO HS [facility] Past Psychiatric History - Past Psychiatric History Previous Treatment History: Inpatient Pertinent Medical Hx (Current Medical&Sleep Prob, Allergies): Allergies Allergy/AdvReac Type Severity Reaction Status Date / Time No Known Allergies Allergy Verified 07/22/16 10:04 Haloperidol [Haldol] 10 mg PO DAILY #30 tab 07/11/16 QUEtiapine [SEROquel] 200 mg PO HS #30 tab 07/11/16 Benztropine [Benztropine Mesylate] 1 mg PO 07/15/16 Review of Systems - Review of Systems All systems: reviewed and no additional remarkable complaints except - Psychiatric Psychiatric: Auditory Hallucinations, Paranoia, Suicidal Ideation Mental Status Examination - Personal Presentation Personal Presentation: Looks older than stated age - Affect Affect: Constricted - Motor Activity Motor Activity: Psychomotor Retardation - Reliability in Providing Information Reliability in Providing Information: Poor, due to alteration in thoughts, Poor , due to altered mood - Speech Speech: Disorganized - Mood Mood: Depressed, Anxious - Formal Thought Process Formal Thought Process: Hallucinations, Delusions, Paranoia, Loosening of associations - Hallucinations/Delusions Hallucinations: Auditory Delusions: Persecution - Obsessions/Compulsions Obsessions: No Compulsions: No - Cognitive Functions Orientation: Person, Place, Situation, Time Sensorium: Alert Attention/Concentration: Attentive Abstract Thinking: [place] Estimate of Intelligence: Below average Judgement: Imparied, as evidence by: Poor judgement, Imparied, as evidence by: Lack of insight into illness - Risk Risk: Suicidal, Diminished functioning - Strength & Assets Inventory Strength & Assets Inventory: Cooperative - Limitations Limitations: Living alone DSM 5 DX - DSM 5 DSM 5 Diagnosis: schizophrenia paranoid type continuous Rule out schizoaffective disorder depressed type - Recommended/Plan of Treatment Treatment Recommendations and Plan of Treatment: schizophrenia paranoid type continuous Rule out schizoaffective disorder depressed type CBT Psychoeducation Supportive therapy, group therapy, individual therapy Haldol 10 mg by mouth daily at bedtime Seroquel 200 mg by mouth daily at bedtime Trazodone 50 mg by mouth daily at bedtime - Smoking Cessation Smoking Cessation Initiated: No
--- NOTE | 2016-07-24 18:02 | PCM.PYCHPN ---
Psychiatric Progress Note - Psychiatric Progress Note Patient seen today, length of contact: 15 minutes Patient Chief Complaint: "I'm better, can I leave tomorrow?" Medical Problems: Pt was seen, chart reviewed and case discussed with staff. Pt is compliant with medication, without adverse effects. States he feels much better and wants to go home tomorrow. Pt still has voices, but no visual hallucinations, suicidal ideation and homicidal ideation. Yet, voices tell him to do it at times. Today, pt's mood is improved and is cooperative, but still appears disorganized. Pt noted to be isolated in room. Psychoeducation and support given. Risks of haldol dec discussed and he agreed, as he had had it in the past. journalists and other writers called and left a msg to his sister w consent. SW to refer him to [facility] Medication Change: Yes (Halloperidol decanoate) Medical Record Reviewed: Yes Mental Status Examination - Cognitive Function Orientation: Person, Place, Situation, Time Attention: WNL Concentration: WNL Association: Loose Fund of Knowledge: Poor - Mood Mood: Depressed, Anxious - Affect Affect: Constricted - Speech Speech: Appropriate - Formal Thought Process Formal Thought Process: Delusions, Paranoia, Loosening of associations - Suicidal Ideation Suicidal Ideation: No - Homicidal Ideation Homicidal Ideation: No Goal/Treatment Plan - Goal/Treatment Plan Need for Continued Stay: Remain at risks for inpatient hospitalization, Discharge may exacerbated symptoms, Severe functional impairment Progress Toward Problem(s) and Goals/Treatment Plan: schizophrenia paranoid type continuous Rule out schizoaffective disorder depressed type CBT Psychoeducation Supportive therapy, group therapy, individual therapy Haldol 10 mg by mouth daily at bedtime Seroquel 200 mg by mouth daily at bedtime Trazodone 50 mg by mouth daily at bedtime Haldol decanoate IM 50 mg x2 Estimated Date of D/C: 07/26/16 - Smoking Cessation Smoking Cessation Initiated: No
[2016-07-25] MEDS ORDERED: Vitamins A & D Oint UD Foilpak TOP PRN (16:44)
[2016-07-25] MEDS ORDERED: Aluminum Hydroxide/Magnesium Hydroxide Susp (30 mL) PO ONE (17:00)
--- NOTE | 2016-07-25 17:27 | PCM.PYCHPN ---
Psychiatric Progress Note - Psychiatric Progress Note Patient seen today, length of contact: 20 min Patient Chief Complaint: " I want to go home" Problems Identified/Issues Discussed: The pt is seen, chart reviewed, case discussed. Pt mood is positive today. Still odd, disorganized and isolated but better than before. Pt denies suicidal thoughts or thoughts of hurting other people. Pt denies auditory or visual hallucinations today BUT he was so fixated on leaving that he is likely hiding as he is seen internally preoccupied at times. Pt was counseled on treatment plan. Pt current plan is to attend [facility] for treatment and continue living with his sister. After care discussed, support and psychoeducation given. Second Haldol Dec 50 mg shot given. He will be observed today re adverse effects and be dc'ed tomorrow if no other issues Medical Problems: Patient Denies Medication Change: Yes (Haldol Dec 50 (second dose)) Medical Record Reviewed: Yes Mental Status Examination - Cognitive Function Orientation: Person, Place, Situation, Time Memory: Impaired Attention: WNL Concentration: Poor Association: WNL Fund of Knowledge: Poor - Mood Mood: Depressed, Anxious - Affect Affect: Constricted - Speech Speech: Appropriate - Formal Thought Process Formal Thought Process: No Impairment (Pt denied hallucinations ) - Suicidal Ideation Suicidal Ideation: No - Homicidal Ideation Homicidal Ideation: No Goal/Treatment Plan - Goal/Treatment Plan Need for Continued Stay: Remain at risks for inpatient hospitalization, Discharge may exacerbated symptoms, Severe functional impairment Progress Toward Problem(s) and Goals/Treatment Plan: Schizophrenia paranoid type continuous Rule out schizoaffective disorder depressed type: -Haldol 10 mg PO QPM -Haldol decanoate IM 50 mg x2 -Seroquel -Trazodone -CBT -Psychoeducation -Attend groups and activities -Supportive therapy, group therapy, individual therapy Estimated Date of D/C: 07/26/16 - Smoking Cessation Smoking Cessation Initiated: No
[2016-07-26 08:41] VITALS: BP 117/79; PULSE 86; RESP 18; TEMP 98.3
--- NOTE | 2016-07-26 12:56 | PCM.PYCHPN ---
Psychiatric Progress Note - Psychiatric Progress Note Patient seen today, length of contact: 20 min Patient Chief Complaint: I was hearing voices and they told me to kill myself. I almost cut myself". Medication Change: Yes (Haldol Dec 50 (second dose)) Medical Record Reviewed: Yes Mental Status Examination - Cognitive Function Orientation: Person, Place, Situation, Time Memory: Impaired Attention: WNL Concentration: Poor Association: WNL Fund of Knowledge: Poor - Mood Mood: Depressed, Anxious - Affect Affect: Constricted - Speech Speech: Appropriate - Formal Thought Process Formal Thought Process: No Impairment (Pt denied hallucinations ) - Suicidal Ideation Suicidal Ideation: No - Homicidal Ideation Homicidal Ideation: No Goal/Treatment Plan - Goal/Treatment Plan Need for Continued Stay: Remain at risks for inpatient hospitalization, Discharge may exacerbated symptoms, Severe functional impairment Progress Toward Problem(s) and Goals/Treatment Plan: schizophrenia paranoid type continuous Rule out schizoaffective disorder depressed type CBT Psychoeducation Supportive therapy, group therapy, individual therapy Haldol 10 mg by mouth daily at bedtime Seroquel 200 mg by mouth daily at bedtime Trazodone 50 mg by mouth daily at bedtime Estimated Date of D/C: 07/26/16
--- NOTE | 2016-07-26 13:32 | PCM.PYCHDC ---
Mental Status Examination - Mental Status Examination Orientation: Person, Place, Situation, Time Memory: Intact Mood: Neutral Affect: Constricted Speech: Soft Attention: WNL Concentration: WNL Association: WNL Fund of Knowledge: WNL Formal Thought Process: No Impairment Description of patient's judgement and insight: good, fair Psychotic Thoughts and Behaviors: deniers any AVH Suicidal Ideation: No Current Homicidal Ideation?: No Discharge Summary - Discharge Note Reason for Hospitalization: Patient was a 56 year old male self referred to [facility] due to reported auditory hallucinations and suicidal ideation. Patient stated " I was hearing voices and they told me to kill myself. I almost cut my self". Pt is seen, chart reviewed, case discussed. Pt was uncooperative during history taking and refused to answer some questions. Patient was a 56 year old male self referred to [facility] due to reported auditory hallucinations and suicidal ideation. Patient stated "I was hearing voices and they told me to kill myself. I almost cut myself". Pt is single and does not have children. Pt lives with sister in [place] and receives social security disability. 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 Pt has been hospitalized in the past multiple times for schizophrenia. Pt mood today is irritable and guarded. He appeared disorganized and internally preoccupied. He mentioned that he stopped taking his medications soon after taking his meds and then he started hearing voices. Pt denies visual hallucinations, but admits to auditory hallucinations. Pt denies using drugs. Pt admits to smoking 1 pack of cigarettes a day. Pt states that he does not see a psychiatrist. Pt currently complains of abdominal pain, headache and shaking. Consultations:: List each consultation separately and include: 1. Reason for request. 2. Findings. 3. Follow-up Summary of Hospital Course include:: 1. Description of specific treatment plan utilized for patients during their course of treatmen. 2. Summarize the time- course for resolution of acute symptoms and/or regressed behaviors. 3. Describe issues identified and worked on during hospitalization. 4. Describe medication utilized. 5. Describe medical problems identified and treated. 6. Reassessment of suicide risk Summary of Hospital Course: During the course of his stay, patient (pt) started progressively improving and he no longer remained irritable, depressed, and suicidal. His mood and paranoia were improved and he started attending groups and meetings and started socializing. Patient denied any feelings of hopelessness, helplessness, and worthlessness, denied any problem with the sleep or appetite, denied suicidal ideation or homicidal ideation. Pt denied any auditory or visual hallucinations. Some changes were made in his current medications and patient was discharged on following medications. He tolerated these medications very well and denied any side effects. - Final Diagnosis (DSM 5) Condition upon Discharge: STABLE DSM 5: schizoaffective disorder depressed type Disposition: HOME/ ROUTINE Follow-up Treatment Plan: Education: Pt was educated and counseled about the risks and benefits of taking and not taking medications. Pt was educated and counseled about the risks of drinking and abusing drugs. Pt was educated and counseled to go to the ER or call 911 if pt develop suicidal ideation or homicidal ideation, worsening of symptoms or severe side effects of the meds. Prescriptions/Medication Reconciliation: Benztropine [Cogentin] 1 mg PO HS PRN #30 tab PRN Reason: eps Haloperidol [Haldol] 10 mg PO QPM #30 tab QUEtiapine [SEROquel] 200 mg PO HS #30 tab traZODone [Desyrel] 50 mg PO HS PRN #30 tab PRN Reason: Insomnia - Smoking Cessation Smoking Cessation Medication prescribed: No - Antipsychotic Medications Pt discharged on 2 or more routine antipsychotic medications: No
[2016-07-27 16:18] VITALS: O2SAT 100
== END 2016-07-26 13:51 | disposition home or self-care (01) | DRG 885 ==
LOC: C.ER 10:01 → C.5E 14:43
PROVIDERS: ADMIT Psychiatry & Neurology Psychiatry; ATTEND Psychiatry & Neurology Psychiatry
PROC: GZ3ZZZZ Medication Management (ICD-10-PCS; principal; 2016-07-22)
PROC: GZHZZZZ Group Psychotherapy (ICD-10-PCS; 2016-07-22)
PROC: GZ56ZZZ Individual Psychotherapy, Supportive (ICD-10-PCS; 2016-07-22)
DX: F20.0 Paranoid schizophrenia (principal); R45.851 Suicidal ideations; F25.1 Schizoaffective disorder, depressive type; E11.9 Type 2 diabetes mellitus without complications; F17.210 Nicotine dependence, cigarettes, uncomplicated; G89.29 Other chronic pain

== ENCOUNTER 2016-08-09 15:41 | Emergency (ER) | payer MEDICARE ==
[2016-08-09 15:42] VITALS: BMI 23.0
[2016-08-09 15:55] VITALS: BP 132/85; TEMP 98.4; O2SAT 98
--- NOTE | 2016-08-09 16:11 | C.PDOC ---
History Of Present Illness A 56 year old male comes in requesting to be readmitted to psych evaluation for persistent suicidal ideation for the past few days. Patient reports no plan. Patient was discharged from [facility] psychiatric department yesterday and was discharged from [facility] ER this morning. Patient is well known to this ER for various complaints. Patient denies any other complaints at this time. REQUESTING TO BE READMITTED TO PSYCH FOR PERSIST SUICIDAL THOUGHTS. NO PLAN. DC FROM [facility] PSYCH YESTERDAY, EVAL AND DC FROM [facility] ER THIS MORNING. WELL KNOWN TO THIS ER FOR VARIOUS COMPLAINTS. EXAM NEG Time Seen by Provider: 08/09/16 16:02 Chief Complaint (Nursing): Psychiatric Evaluation History Per: Patient History/Exam Limitations: no limitations Onset/Duration Of Symptoms: Days Current Symptoms Are (Timing): Still Present Suicide/Self Injury Attempted (Context): None Modifying Factor(s): None Severity: Mild Associated Symptoms: Suicidal Thoughts. denies: Suicidal Plan Involuntary Hold By: None Recent travel outside of the [place]: No Additional History Per: Patient Past Medical History Reviewed: Historical Data, Nursing Documentation, Vital Signs Vital Signs: Last Vital Signs Temp 98.4 F 08/09/16 15:51 Pulse 105 H 08/09/16 15:51 Resp 20 08/09/16 15:51 BP 132/85 08/09/16 15:51 Pulse Ox 98 08/09/16 16:25 - Medical History PMH: Anxiety, Bipolar Disorder, Depression, Gastritis, Paranoia, Personality Disorder, Schizophrenia, Chronic Pain (abd) Denies: Diabetes, Hepatitis (Patient denied), HIV (Patient denied), HTN ( Patient denied), Chronic Kidney Disease, Sexually Transmitted Disease (Patient denied) Comment Only: Seizures (Patient denied) Surgical History: - [facility] Procedures APPLICATION OF SPLINT (04/09/14) CL FX REDUC-TIBIA/FIBULA (02/26/13) GROUP PSYCHOTHERAPY (07/22/16) INDIVID PSYCHOTHERAP NEC (12/17/13) INDIVIDUAL PSYCHOTHERAPY, BEHAVIORAL (01/29/16) INDIVIDUAL PSYCHOTHERAPY, SUPPORTIVE (07/22/16) MEDICATION MANAGEMENT (07/22/16) OTHER GROUP THERAPY (11/05/13) PSYCHIA INTERV/EVAL NEC (06/28/14) Family History: States: Unknown Family Hx - Social History Hx Tobacco Use: Yes (heavy smoker) Hx Alcohol Use: Yes Hx Substance Use: No - Immunization History Hx Tetanus Toxoid Vaccination: Yes Hx Influenza Vaccination: Yes (2017) Hx Pneumococcal Vaccination: Yes Review Of Systems Except As Marked, All Systems Reviewed And Found Negative. Constitutional: Negative for: Fever, Chills Psych: Positive for: Suicidal ideation. Negative for: Other (Homicidal ideation ) Physical Exam - Physical Exam Appears: Non-toxic, No Acute Distress Skin: Warm, Dry Head: Atraumatic, Normacephalic Eye(s): bilateral: Normal Inspection, PERRL, EOMI Cardiovascular: Rhythm Regular, No Murmur Respiratory: Normal Breath Sounds, No Rales, No Rhonchi, No Wheezing Neurological/Psych: Oriented x3, Normal Speech, Normal Cognition, No Other (No focal deficit) ED Course And Treatment O2 Sat by Pulse Oximetry: 98 (RA) Pulse Ox Interpretation: Normal - Physician Consult Information Time Consulting Physician Contacted: 16:12 Outcome Of Conversation: D/W CRISIS HOLGER PT CLEARED FOR DC Medical Decision Making Medical Decision Making: Impression: 56 y/o male requesting readmission for psych evaluation Plans: -Reassess and disposition Patient was denied for psych evaluation Disposition Counseled Patient/Family Regarding: Diagnosis, Need For Followup - Disposition Referrals: [facility] [Outside] [facility] [Outside] Disposition: HOME/ ROUTINE Disposition Time: 16:12 Condition: GOOD Forms: General Discharge Instructions - Clinical Impression Clinical Impression: Schizophrenia, chronic condition, Suicidal thoughts, Malingering, Smelly feet - Scribe Statement The provider has reviewed the documentation as recorded by the Scribe Mo All medical record entries made by the Scribe were at my direction and personally dictated by me. I have reviewed the chart and agree that the record accurately reflects my personal performance of the history, physical exam, medical decision making, and the department course for this patient. I have also personally directed, reviewed, and agree with the discharge instructions and disposition.vy bowden
[2016-08-09 16:28] VITALS: PULSE 100; RESP 18
== END 2016-08-09 16:26 | disposition home or self-care (01) ==
LOC: C.ER 15:41
DX: F20.9 Schizophrenia, unspecified (principal); R45.851 Suicidal ideations; Z76.5 Malingerer [conscious simulation]; R68.89 Other general symptoms and signs

== ENCOUNTER 2016-08-10 13:50 | Emergency (ER) | payer MEDICARE ==
[2016-08-10 13:51] VITALS: BMI 23.0
[2016-08-10 13:58] VITALS: BP 123/80; PULSE 104; TEMP 98.1; O2SAT 99
--- NOTE | 2016-08-10 14:30 | C.PDOC ---
History Of Present Illness 56 year old patient presents to the ED states he is hearing voices and they are telling him to hurt himself. He also notes he is hungry and wants a sandwich. Patient denies suicidal ideation or homicidal ideation. Time Seen by Provider: 08/10/16 14:08 Chief Complaint (Nursing): Psychiatric Evaluation History Per: Patient History/Exam Limitations: clinical condition Onset/Duration Of Symptoms: Other Current Symptoms Are (Timing): Still Present Suicide/Self Injury Attempted (Context): None Modifying Factor(s): None Severity: None Pain Scale Rating Of: 0 Associated Symptoms: Paranoia Recent travel outside of the [place]: No Additional History Per: Prior Records Past Medical History Reviewed: Historical Data, Nursing Documentation, Vital Signs Vital Signs: Last Vital Signs Temp 98.1 F 08/10/16 13:55 Pulse 104 H 08/10/16 13:55 Resp 18 08/10/16 14:30 BP 123/80 08/10/16 13:55 Pulse Ox 99 08/10/16 15:22 - Medical History PMH: Anxiety, Bipolar Disorder, Depression, Gastritis, Paranoia, Personality Disorder, Schizophrenia, Chronic Pain (abd) Surgical History: - [facility] Procedures APPLICATION OF SPLINT (04/09/14) CL FX REDUC-TIBIA/FIBULA (02/26/13) GROUP PSYCHOTHERAPY (07/22/16) INDIVID PSYCHOTHERAP NEC (12/17/13) INDIVIDUAL PSYCHOTHERAPY, BEHAVIORAL (01/29/16) INDIVIDUAL PSYCHOTHERAPY, SUPPORTIVE (07/22/16) MEDICATION MANAGEMENT (07/22/16) OTHER GROUP THERAPY (11/05/13) PSYCHIA INTERV/EVAL NEC (06/28/14) Family History: States: Unknown Family Hx - Social History Hx Tobacco Use: Yes (heavy smoker) Hx Alcohol Use: Yes Hx Substance Use: No - Immunization History Hx Tetanus Toxoid Vaccination: Yes Hx Influenza Vaccination: Yes (2016) Hx Pneumococcal Vaccination: Yes Review Of Systems Except As Marked, All Systems Reviewed And Found Negative. Psych: Positive for: Other (auditory hallucinations). Negative for: Suicidal ideation Physical Exam - Physical Exam Appears: Non-toxic, No Acute Distress Skin: Warm, Dry Head: Atraumatic, Normacephalic Neck: Normal ROM, Supple Chest: Symmetrical Cardiovascular: Rhythm Regular Respiratory: Normal Breath Sounds, No Rales, No Rhonchi, No Wheezing Back: Normal Inspection Extremity: Normal ROM Neurological/Psych: Oriented x3 Gait: Steady ED Course And Treatment O2 Sat by Pulse Oximetry: 99 (room air) Pulse Ox Interpretation: Normal Progress Note: Blood work was ordered. Patient eloped after eating his sandwich prior to further evaluation. 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 - Scribe Statement The provider has reviewed the documentation as recorded by the Scribe Delia Chow All medical record entries made by the Scribe were at my direction and personally dictated by me. I have reviewed the chart and agree that the record accurately reflects my personal performance of the history, physical exam, medical decision making, and the department course for this patient. I have also personally directed, reviewed, and agree with the discharge instructions and disposition.
[2016-08-10 15:06] VITALS: RESP 18
== END 2016-08-10 14:30 | disposition left against medical advice (07) ==
LOC: C.ER 13:50
DX: F20.9 Schizophrenia, unspecified (principal); F17.210 Nicotine dependence, cigarettes, uncomplicated

== ENCOUNTER 2016-08-12 10:41 | Emergency (ER) | payer MEDICARE ==
[2016-08-12 10:41] VITALS: BMI 23.0
[2016-08-12 11:18] VITALS: BP 121/91; PULSE 128; RESP 18; TEMP 98.3; O2SAT 98
== END 2016-08-12 13:30 | disposition left against medical advice (07) ==
LOC: C.ER 10:41
DX: R10.9 Unspecified abdominal pain (principal); Z02.9 Encounter for administrative examinations, unspecified

== ENCOUNTER → 2016-08-14 15:07 | Emergency (ER) | payer MEDICARE ==
[2016-08-14 15:08] VITALS: BMI 23.0
== END | disposition left against medical advice (07) ==
LOC: C.ER 15:07
DX: R10.9 Unspecified abdominal pain (principal); Z02.9 Encounter for administrative examinations, unspecified

== ENCOUNTER 2016-08-16 22:43 | Emergency (ER) | payer MEDICARE ==
[2016-08-16 22:43] VITALS: BMI 23.0
[2016-08-16 22:49] VITALS: BP 134/88; PULSE 101; RESP 18; TEMP 97.6; O2SAT 100
--- NOTE | 2016-08-16 22:58 | C.PDOC ---
History Of Present Illness A 56 y/o male c/o hearing voices for a while now. Pt reports the voices are his baseline. Pt notes discussing with psychiatrics with no new issues and was recently discharged. Pt denies any complaints at this time. Time Seen by Provider: 08/16/16 22:53 Chief Complaint (Nursing): Psychiatric Evaluation History Per: Patient History/Exam Limitations: no limitations Onset/Duration Of Symptoms: Days Current Symptoms Are (Timing): Still Present Severity: Mild Reports Recently: Seen In ED Recent travel outside of the [place]: No Additional History Per: Patient Past Medical History Reviewed: Historical Data, Nursing Documentation, Vital Signs Vital Signs: Last Vital Signs Temp 97.6 F 08/16/16 22:45 Pulse 101 H 08/16/16 22:45 Resp 18 08/17/16 00:03 BP 134/88 08/16/16 22:45 Pulse Ox 100 08/17/16 01:11 - Medical History PMH: Anxiety, Bipolar Disorder, Depression, Gastritis, Paranoia, Personality Disorder, Schizophrenia, Chronic Pain (abd) Denies: Diabetes, Hepatitis, HIV (Patient denied), HTN (Patient denied), Chronic Kidney Disease, Sexually Transmitted Disease (Patient denied) Comment Only: Seizures (Patient denied) Surgical History: - [facility] Procedures APPLICATION OF SPLINT (04/09/14) CL FX REDUC-TIBIA/FIBULA (02/26/13) GROUP PSYCHOTHERAPY (07/30/16) INDIVID PSYCHOTHERAP NEC (12/17/13) INDIVIDUAL PSYCHOTHERAPY, BEHAVIORAL (01/29/16) INDIVIDUAL PSYCHOTHERAPY, COGNITIVE-BEHAVIORAL (07/30/16) INDIVIDUAL PSYCHOTHERAPY, SUPPORTIVE (07/22/16) MEDICATION MANAGEMENT (07/22/16) OTHER GROUP THERAPY (11/05/13) PSYCHIA INTERV/EVAL NEC (06/28/14) Family History: States: Unknown Family Hx - Social History Hx Tobacco Use: Yes (heavy smoker) Hx Alcohol Use: No Hx Substance Use: No - Immunization History Hx Tetanus Toxoid Vaccination: Yes Hx Influenza Vaccination: Yes (2016) Hx Pneumococcal Vaccination: Yes Review Of Systems Except As Marked, All Systems Reviewed And Found Negative. Constitutional: Negative for: Fever, Chills Psych: Positive for: Other (Hearing voices) Physical Exam - Physical Exam Appears: Non-toxic, No Acute Distress Skin: Warm, Dry Head: Atraumatic, Normacephalic Eye(s): bilateral: Normal Inspection Cardiovascular: Rhythm Regular, No Murmur Respiratory: Normal Breath Sounds, No Rales, No Rhonchi, No Wheezing Neurological/Psych: Oriented x3, Normal Speech, No Other (No focal deficit) ED Course And Treatment O2 Sat by Pulse Oximetry: 100 (RA) Pulse Ox Interpretation: Normal Medical Decision Making Medical Decision Making: Plans: -Reassess and disposition baseline exam approx 100 ED visits in 2017 alone, no signficant findings suspect malingering- d/c to opt f/u Disposition Doctor Will See Patient In The: Office Counseled Patient/Family Regarding: Studies Performed, Diagnosis - Disposition Referrals: [facility] [Outside] [facility] [Outside] Disposition: HOME/ ROUTINE Disposition Time: 22:57 Condition: GOOD Additional Instructions: follow-up in our outpatient psych services as needed. you may not stay in the ED overnight without an acute medical issue. Instructions: Schizophrenia (ED), Anxiety (ED) - Clinical Impression Clinical Impression: Schizophrenia, Malingerer - Scribe Statement The provider has reviewed the documentation as recorded by the Scribe Lakeisha bowden All medical record entries made by the Scribe were at my direction and personally dictated by me. I have reviewed the chart and agree that the record accurately reflects my personal performance of the history, physical exam, medical decision making, and the department course for this patient. I have also personally directed, reviewed, and agree with the discharge instructions and disposition.
== END 2016-08-17 00:03 | disposition home or self-care (01) ==
LOC: C.ER 22:43
DX: F20.9 Schizophrenia, unspecified (principal); Z76.5 Malingerer [conscious simulation]

== ENCOUNTER 2016-08-17 15:17 | Emergency (ER) | payer MEDICARE ==
[2016-08-17 15:18] VITALS: BMI 23.0
[2016-08-17 15:23] VITALS: BP 105/65; PULSE 104; RESP 20; TEMP 98.5; O2SAT 96
--- NOTE | 2016-08-17 15:53 | C.PDOC ---
History Of Present Illness A 56 year old male, presents to the emergency department with complaints of auditory hallucinations. Patient denies any other complaints at this time. Patient is well known to this ER for various complaints. Time Seen by Provider: 08/17/16 15:51 Chief Complaint (Nursing): Psychiatric Evaluation History Per: Patient Past Medical History Reviewed: Historical Data, Nursing Documentation, Vital Signs Vital Signs: Last Vital Signs Temp 98.5 F 08/17/16 15:22 Pulse 104 H 08/17/16 15:22 Resp 20 08/17/16 15:22 BP 105/65 08/17/16 15:22 Pulse Ox 96 08/17/16 15:53 - Medical History PMH: Anxiety, Asthma, Bipolar Disorder, Depression, Gastritis, Paranoia, Personality Disorder, Schizophrenia, Chronic Pain (abd) Denies: Diabetes, Hepatitis, HIV (Patient denied), HTN (Patient denied), Chronic Kidney Disease, Seizures (Patient denied), Sexually Transmitted Disease (Patient denied) Surgical History: - [facility] Procedures APPLICATION OF SPLINT (04/09/14) CL FX REDUC-TIBIA/FIBULA (02/26/13) GROUP PSYCHOTHERAPY (07/30/16) INDIVID PSYCHOTHERAP NEC (12/17/13) INDIVIDUAL PSYCHOTHERAPY, BEHAVIORAL (01/29/16) INDIVIDUAL PSYCHOTHERAPY, COGNITIVE-BEHAVIORAL (07/30/16) INDIVIDUAL PSYCHOTHERAPY, SUPPORTIVE (07/22/16) MEDICATION MANAGEMENT (07/22/16) OTHER GROUP THERAPY (11/05/13) PSYCHIA INTERV/EVAL NEC (06/28/14) Family History: States: Unknown Family Hx - Social History Hx Tobacco Use: Yes (heavy smoker) Hx Alcohol Use: No Hx Substance Use: No - Immunization History Hx Tetanus Toxoid Vaccination: Yes Hx Influenza Vaccination: Yes (2017) Hx Pneumococcal Vaccination: Yes Review Of Systems Except As Marked, All Systems Reviewed And Found Negative. Cardiovascular: Negative for: Chest Pain Respiratory: Negative for: Shortness of Breath Psych: Positive for: Other (Auditory hallucinations). Negative for: Suicidal ideation Physical Exam - Physical Exam Appears: Non-toxic, No Acute Distress, Unkempt Head: Atraumatic Eye(s): bilateral: Normal Inspection Neck: Normal ROM Extremity: Normal ROM Neurological/Psych: Oriented x3 ED Course And Treatment O2 Sat by Pulse Oximetry: 96 Medical Decision Making Medical Decision Making: BIBA, malingering seen by Crisis last night for same. no acute issues over 100 visits to our and local ER's in 2017 alone no acute issues today- stable and baseline, well known to this MD marinelli this ED staff d/c with opt f/u. Disposition Doctor Will See Patient In The: Office Counseled Patient/Family Regarding: Studies Performed, Diagnosis - Disposition Referrals: [facility] [Outside] [facility] [Outside] [facility] [Outside] Disposition: HOME/ ROUTINE Disposition Time: 15:53 Condition: GOOD Additional Instructions: follow-up as outpatient. you may NOT stay in the ER without an acute medical issue. - Clinical Impression Clinical Impression: Schizoaffective disorder, Malingerer - Scribe Statement The provider has reviewed the documentation as recorded by the Leonard Hemphill All medical record entries made by the Madhavibalexis were at my direction and personally dictated by me. I have reviewed the chart and agree that the record accurately reflects my personal performance of the history, physical exam, medical decision making, and the department course for this patient. I have also personally directed, reviewed, and agree with the discharge instructions and disposition.
== END 2016-08-17 16:08 | disposition home or self-care (01) ==
LOC: C.ER 15:17
DX: F20.9 Schizophrenia, unspecified (principal); Z76.5 Malingerer [conscious simulation]

== ENCOUNTER 2016-08-19 13:41 | Emergency (ER) | payer MEDICARE ==
[2016-08-19 13:42] VITALS: BMI 23.0
[2016-08-19 14:05] VITALS: BP 90/55; PULSE 97; RESP 18; TEMP 98; O2SAT 96
--- NOTE | 2016-08-19 14:27 | C.PDOC ---
History Of Present Illness 56-year-old homeless male, PMHx includes chronic abdominal pain and schizophrenia, presents to the emergency department with complaints of hunger. Patient states he wants a sandwich. He denies any current physical complaints, and has no SI/HI. Time Seen by Provider: 08/19/16 14:02 Chief Complaint (Nursing): Psychiatric Evaluation History Per: Patient History/Exam Limitations: no limitations Current Symptoms Are (Timing): Still Present Past Medical History Reviewed: Historical Data, Nursing Documentation, Vital Signs Vital Signs: Last Vital Signs Temp 98 F 08/19/16 14:03 Pulse 97 H 08/19/16 14:03 Resp 18 08/19/16 14:03 BP 90/55 L 08/19/16 14:03 Pulse Ox 96 08/19/16 14:55 - Medical History PMH: Anxiety, Asthma, Bipolar Disorder, Depression, Gastritis, Paranoia, Personality Disorder, Schizophrenia, Chronic Pain (abd) Surgical History: - [facility] Procedures APPLICATION OF SPLINT (04/09/14) CL FX REDUC-TIBIA/FIBULA (02/26/13) GROUP PSYCHOTHERAPY (07/30/16) INDIVID PSYCHOTHERAP NEC (12/17/13) INDIVIDUAL PSYCHOTHERAPY, BEHAVIORAL (01/29/16) INDIVIDUAL PSYCHOTHERAPY, COGNITIVE-BEHAVIORAL (07/30/16) INDIVIDUAL PSYCHOTHERAPY, SUPPORTIVE (07/22/16) MEDICATION MANAGEMENT (07/22/16) OTHER GROUP THERAPY (11/05/13) PSYCHIA INTERV/EVAL NEC (06/28/14) Family History: States: No Known Family Hx - Social History Hx Tobacco Use: Yes (heavy smoker) Hx Alcohol Use: No Hx Substance Use: No - Immunization History Hx Tetanus Toxoid Vaccination: Yes Hx Influenza Vaccination: Yes (2017) Hx Pneumococcal Vaccination: Yes Review Of Systems Except As Marked, All Systems Reviewed And Found Negative. Constitutional: Positive for: Other (hungry). Negative for: Fever Cardiovascular: Negative for: Chest Pain Respiratory: Negative for: Cough, Shortness of Breath Gastrointestinal: Negative for: Nausea, Vomiting, Abdominal Pain (chronic), Diarrhea Neurological: Negative for: Headache Psych: Negative for: Suicidal ideation Physical Exam - Physical Exam Appears: Well, Non-toxic, No Acute Distress, Unkempt (Malodorous) Head: Normacephalic Eye(s): bilateral: Normal Inspection Oral Mucosa: Moist Cardiovascular: Rhythm Regular Respiratory: Normal Breath Sounds, No Rales, No Rhonchi, No Wheezing Gastrointestinal/Abdominal: Normal Exam, Bowel Sounds, Soft, No Tenderness Extremity: Normal ROM Neurological/Psych: Oriented x3 Gait: Steady ED Course And Treatment O2 Sat by Pulse Oximetry: 96 (RA) Pulse Ox Interpretation: Normal Progress Note: Patient given sandwish and juice. He is AAOx3, ambulating normally in ED, and is clinically sober. He denies SI/HI or physical complaints. Will discharge. Disposition Counseled Patient/Family Regarding: Diagnosis, Need For Followup - Disposition Referrals: [facility] [Outside] Disposition: HOME/ ROUTINE Disposition Time: 15:00 Condition: STABLE Forms: General Discharge Instructions Print Language: NIGERIAN - POA Present On Arrival: None - Clinical Impression Clinical Impression: Hunger pain - Scribe Statement The provider has reviewed the documentation as recorded by the Scribalexis Hemphill All medical record entries made by the Scribe were at my direction and personally dictated by me. I have reviewed the chart and agree that the record accurately reflects my personal performance of the history, physical exam, medical decision making, and the department course for this patient. I have also personally directed, reviewed, and agree with the discharge instructions and disposition.
== END 2016-08-19 15:08 | disposition home or self-care (01) ==
LOC: C.ER 13:41
DX: T73.0XXA Starvation, initial encounter (principal)

== ENCOUNTER 2016-08-20 13:58 | Emergency (ER) | payer MEDICARE ==
[2016-08-20 13:58] VITALS: BMI 23.0
[2016-08-20 14:25] VITALS: BP 115/76; PULSE 112; RESP 18; TEMP 98.8; O2SAT 98
--- NOTE | 2016-08-20 14:50 | C.PDOC ---
History Of Present Illness 56 y/o male presents to ED with complaints of reportly hearing voices.. Patient is well known in ED seen numerous times for similar. at bedside, pt sleeping in nad, denies any complaints, hallucinations, hi/si. Patient was discharged from [facility] 2 hours ago for the same reporting symptoms. Patient denies suicidal or homicidal ideation. No further complaints at this time. Time Seen by Provider: 08/20/16 14:28 Chief Complaint (Nursing): Psychiatric Evaluation History Per: Patient History/Exam Limitations: no limitations Onset/Duration Of Symptoms: Hrs Past Medical History Vital Signs: Last Vital Signs Temp 98.8 F 08/20/16 14:24 Pulse 112 H 08/20/16 14:24 Resp 18 08/20/16 14:24 BP 115/76 08/20/16 14:24 Pulse Ox 98 08/20/16 15:26 - Medical History PMH: Anxiety, Asthma, Bipolar Disorder, Depression, Gastritis, Paranoia, Personality Disorder, Schizophrenia, Chronic Pain (abd) Surgical History: - [facility] Procedures APPLICATION OF SPLINT (04/09/14) CL FX REDUC-TIBIA/FIBULA (02/26/13) GROUP PSYCHOTHERAPY (07/30/16) INDIVID PSYCHOTHERAP NEC (12/17/13) INDIVIDUAL PSYCHOTHERAPY, BEHAVIORAL (01/29/16) INDIVIDUAL PSYCHOTHERAPY, COGNITIVE-BEHAVIORAL (07/30/16) INDIVIDUAL PSYCHOTHERAPY, SUPPORTIVE (07/22/16) MEDICATION MANAGEMENT (07/22/16) OTHER GROUP THERAPY (11/05/13) PSYCHIA INTERV/EVAL NEC (06/28/14) Family History: States: Unknown Family Hx - Social History Hx Tobacco Use: Yes (heavy smoker) Hx Alcohol Use: No Hx Substance Use: No - Immunization History Hx Tetanus Toxoid Vaccination: Yes Hx Influenza Vaccination: Yes (2016) Hx Pneumococcal Vaccination: Yes Review Of Systems Except As Marked, All Systems Reviewed And Found Negative. Constitutional: Negative for: Fever, Chills Gastrointestinal: Negative for: Nausea, Vomiting, Diarrhea Skin: Negative for: Rash Neurological: Negative for: Confusion, Dizziness Psych: Positive for: Other (Hearing voices). Negative for: Anxiety, Depression , Suicidal ideation Physical Exam - Physical Exam Appears: Non-toxic, No Acute Distress Skin: Normal Color, Warm Head: Atraumatic, Normacephalic Oral Mucosa: Moist Neck: Normal ROM Cardiovascular: Rhythm Regular Respiratory: Normal Breath Sounds, No Rales, No Rhonchi, No Wheezing Gastrointestinal/Abdominal: Soft Extremity: Normal ROM Neurological/Psych: Oriented x3, Normal Speech, Normal Cognition ED Course And Treatment O2 Sat by Pulse Oximetry: 98 (Room air ) Pulse Ox Interpretation: Normal Medical Decision Making Medical Decision Making: Patient seen eloping from ER in no acute distress. Disposition - Disposition Disposition: ELOPEMENT - ER ONLY Disposition Time: 03:30 Condition: STABLE - Clinical Impression Clinical Impression: Homeless - PA / RN MANAGER / Resident Statement MD/DO has reviewed & agrees with the documentation as recorded. MD/DO has examined the patient and agrees with the treatment plan. - Scribe Statement The provider has reviewed the documentation as recorded by the Leonard Puente All medical record entries made by the Leonard were at my direction and personally dictated by me. I have reviewed the chart and agree that the record accurately reflects my personal performance of the history, physical exam, medical decision making, and the department course for this patient. I have also personally directed, reviewed, and agree with the discharge instructions and disposition.
--- NOTE | 2016-08-20 15:33 | C.PDOC ---
Time Seen by Provider: 08/20/16 14:28 Chief Complaint (Nursing): Psychiatric Evaluation Past Medical History Vital Signs: Last Vital Signs Temp 98.8 F 08/20/16 14:24 Pulse 112 H 08/20/16 14:24 Resp 18 08/20/16 14:24 BP 115/76 08/20/16 14:24 Pulse Ox 98 08/20/16 14:24 - Medical History PMH: Anxiety, Asthma, Bipolar Disorder, Depression, Gastritis, Paranoia, Personality Disorder, Schizophrenia, Chronic Pain (abd) Denies: Diabetes, Hepatitis, HIV (Patient denied), HTN (Patient denied), Chronic Kidney Disease, Seizures (Patient denied), Sexually Transmitted Disease (Patient denied) Surgical History: - [facility] Procedures APPLICATION OF SPLINT (04/09/14) CL FX REDUC-TIBIA/FIBULA (02/26/13) GROUP PSYCHOTHERAPY (07/30/16) INDIVID PSYCHOTHERAP NEC (12/17/13) INDIVIDUAL PSYCHOTHERAPY, BEHAVIORAL (01/29/16) INDIVIDUAL PSYCHOTHERAPY, COGNITIVE-BEHAVIORAL (07/30/16) INDIVIDUAL PSYCHOTHERAPY, SUPPORTIVE (07/22/16) MEDICATION MANAGEMENT (07/22/16) OTHER GROUP THERAPY (11/05/13) PSYCHIA INTERV/EVAL NEC (06/28/14) Family History: States: Unknown Family Hx - Social History Hx Tobacco Use: Yes (heavy smoker) Hx Alcohol Use: No Hx Substance Use: No - Immunization History Hx Tetanus Toxoid Vaccination: Yes Hx Influenza Vaccination: Yes (2016) Hx Pneumococcal Vaccination: Yes ED Course And Treatment O2 Sat by Pulse Oximetry: 98
== END 2016-08-20 14:58 | disposition left against medical advice (07) ==
LOC: C.ER 13:58
DX: Z00.8 Encounter for other general examination (principal); Z59.0 Homelessness

== ENCOUNTER 2016-08-26 03:03 | Emergency (ER) | payer MEDICARE ==
[2016-08-26 03:04] VITALS: BMI 23.0
[2016-08-26 03:34] VITALS: BP 115/87; PULSE 68; RESP 20; TEMP 98.3; O2SAT 98
--- NOTE | 2016-08-26 03:56 | C.PDOC ---
History Of Present Illness Patient is a 56 year old male who presents to the ER with a complaint of not feeling well. Patient is known to the ER and is requesting food and a place to stay the night. Denies any physical complaints at this time. Chief Complaint (Nursing): Medical Clearance History Per: Patient History/Exam Limitations: no limitations Onset/Duration Of Symptoms: Hrs Current Symptoms Are (Timing): Still Present Recent travel outside of the [place]: No Past Medical History Reviewed: Historical Data, Nursing Documentation, Vital Signs Vital Signs: Last Vital Signs Temp 98.3 F 08/26/16 03:29 Pulse 68 08/26/16 03:29 Resp 20 08/26/16 03:29 BP 115/87 08/26/16 03:29 Pulse Ox 98 08/26/16 03:59 - Medical History PMH: Anxiety, Asthma, Bipolar Disorder, Depression, Gastritis, Paranoia, Personality Disorder, Schizophrenia, Chronic Pain (abd) Surgical History: - [facility] Procedures APPLICATION OF SPLINT (04/09/14) CL FX REDUC-TIBIA/FIBULA (02/26/13) GROUP PSYCHOTHERAPY (07/30/16) INDIVID PSYCHOTHERAP NEC (12/17/13) INDIVIDUAL PSYCHOTHERAPY, BEHAVIORAL (01/29/16) INDIVIDUAL PSYCHOTHERAPY, COGNITIVE-BEHAVIORAL (07/30/16) INDIVIDUAL PSYCHOTHERAPY, SUPPORTIVE (07/22/16) MEDICATION MANAGEMENT (07/22/16) OTHER GROUP THERAPY (11/05/13) PSYCHIA INTERV/EVAL NEC (06/28/14) Family History: States: Unknown Family Hx - Social History Hx Tobacco Use: Yes (heavy smoker) Hx Alcohol Use: No Hx Substance Use: No - Immunization History Hx Tetanus Toxoid Vaccination: Yes Hx Influenza Vaccination: Yes (2016) Hx Pneumococcal Vaccination: Yes Review Of Systems Constitutional: Negative for: Fever, Chills Gastrointestinal: Negative for: Nausea, Vomiting, Diarrhea Physical Exam - Physical Exam Appears: Well, Non-toxic, No Acute Distress Skin: Normal Color, Warm, Dry Head: Atraumatic, Normacephalic Eye(s): bilateral: Normal Inspection, EOMI Oral Mucosa: Moist Chest: Symmetrical, No Tenderness Cardiovascular: Rhythm Regular, No Murmur Respiratory: Normal Breath Sounds, No Rales, No Rhonchi, No Wheezing Gastrointestinal/Abdominal: Soft, No Tenderness Neurological/Psych: Oriented x3, Normal Speech, Normal Cognition ED Course And Treatment O2 Sat by Pulse Oximetry: 98 (Room air) Pulse Ox Interpretation: Normal ED OBSERVATION Date of observation admission: 08/26/16 Time of observation admission: 03:57 - Observation admission statement Patient is being placed in observation because:: Not feeling well, needs food and place to stay. - Goals of Observation Goals of observation are:: Patient feels well enough to leave the hospital comfortably Disposition Counseled Patient/Family Regarding: Diagnosis - Disposition Referrals: [facility] [Outside] Disposition: HOME/ ROUTINE Disposition Time: 05:59 Condition: STABLE Instructions: Psychiatric Hallucinations (ED) - POA Present On Arrival: None - Clinical Impression Clinical Impression: Psychiatric disorder, Homeless - Scribe Statement The provider has reviewed the documentation as recorded by the Scribalexis Gottlieb All medical record entries made by the Madhavibalexis were at my direction and personally dictated by me. I have reviewed the chart and agree that the record accurately reflects my personal performance of the history, physical exam, medical decision making, and the department course for this patient. I have also personally directed, reviewed, and agree with the discharge instructions and disposition.
== END 2016-08-26 06:24 | disposition home or self-care (01) ==
LOC: C.ER 03:03
DX: F99 Mental disorder, not otherwise specified (principal); Z59.0 Homelessness

== ENCOUNTER 2016-08-29 07:08 | Emergency (ER) | payer MEDICARE ==
[2016-08-29 07:08] VITALS: BMI 23.0
[2016-08-29 07:15] VITALS: O2SAT 100
--- NOTE | 2016-08-29 07:25 | C.PDOC ---
History Of Present Illness 56 y/o male presents to ED with complaints of hearing voice and abdominal pain. Patient has previously been seen 24 times this month at the ED for similar complaints. Patient is requesting coffee and a place to stay. Patient denies fever, chills, N/V/D or any other complaints at this time. Time Seen by Provider: 08/29/16 07:12 Chief Complaint (Nursing): Psychiatric Evaluation History Per: Patient Onset/Duration Of Symptoms: Days Current Symptoms Are (Timing): Still Present Past Medical History Reviewed: Historical Data, Nursing Documentation, Vital Signs Vital Signs: Last Vital Signs Temp 98.1 F 08/29/16 07:11 Pulse 96 H 08/29/16 07:11 Resp 15 08/29/16 07:11 BP 117/81 08/29/16 07:11 Pulse Ox 100 08/29/16 07:57 - Medical History PMH: Anxiety, Asthma, Bipolar Disorder, Depression, Gastritis, Paranoia, Personality Disorder, Schizophrenia, Chronic Pain (abd) Surgical History: - [facility] Procedures APPLICATION OF SPLINT (04/09/14) CL FX REDUC-TIBIA/FIBULA (02/26/13) GROUP PSYCHOTHERAPY (07/30/16) INDIVID PSYCHOTHERAP NEC (12/17/13) INDIVIDUAL PSYCHOTHERAPY, BEHAVIORAL (01/29/16) INDIVIDUAL PSYCHOTHERAPY, COGNITIVE-BEHAVIORAL (07/30/16) INDIVIDUAL PSYCHOTHERAPY, SUPPORTIVE (07/22/16) MEDICATION MANAGEMENT (07/22/16) OTHER GROUP THERAPY (11/05/13) PSYCHIA INTERV/EVAL NEC (06/28/14) Family History: States: Unknown Family Hx - Social History Hx Tobacco Use: Yes (heavy smoker) Hx Alcohol Use: No Hx Substance Use: No - Immunization History Hx Tetanus Toxoid Vaccination: Yes Hx Influenza Vaccination: Yes (2016) Hx Pneumococcal Vaccination: Yes Review Of Systems Constitutional: Negative for: Fever, Chills Cardiovascular: Negative for: Chest Pain Respiratory: Negative for: Cough, Shortness of Breath Gastrointestinal: Negative for: Nausea, Vomiting, Diarrhea Neurological: Negative for: Numbness Psych: Negative for: Suicidal ideation Physical Exam - Physical Exam Appears: Non-toxic, No Acute Distress, Unkempt Skin: Warm, Dry Head: Atraumatic, Normacephalic Eye(s): bilateral: PERRL, EOMI Oral Mucosa: Moist Cardiovascular: Rhythm Regular Respiratory: Normal Breath Sounds, No Decreased Breath Sounds, No Accessory Muscle Use, No Rales, No Rhonchi, No Wheezing Gastrointestinal/Abdominal: Soft, No Tenderness, No Distention, No Guarding, No Rebound Neurological/Psych: Oriented x3, Other (No focal deficits) ED Course And Treatment O2 Sat by Pulse Oximetry: 100 (Room air ) Pulse Ox Interpretation: Normal Medical Decision Making Medical Decision Making: call worker person kristi the pt and disc w psychiatrist Dr Roth- no indication for psych admission at this time. Disposition - Disposition Disposition: HOME/ ROUTINE Disposition Time: 08:30 Condition: STABLE - Clinical Impression Clinical Impression: Hearing voices - PA / ASSISTANT READING TEACHER / Resident Statement MD/DO has reviewed & agrees with the documentation as recorded. MD/DO has examined the patient and agrees with the treatment plan. - Scribe Statement The provider has reviewed the documentation as recorded by the Scribalexis Puente All medical record entries made by the Madhavibalexis were at my direction and personally dictated by me. I have reviewed the chart and agree that the record accurately reflects my personal performance of the history, physical exam, medical decision making, and the department course for this patient. I have also personally directed, reviewed, and agree with the discharge instructions and disposition.
[2016-08-29 09:16] VITALS: BP 120/70; PULSE 94; RESP 20; TEMP 98
== END 2016-08-29 09:15 | disposition home or self-care (01) ==
LOC: C.ER 07:08
DX: R44.0 Auditory hallucinations (principal)

== ENCOUNTER 2016-08-31 10:54 | Observation (INO) | payer MEDICARE ==
[2016-08-31 10:54] VITALS: BMI 22.9
[2016-08-31 10:58] VITALS: BP 126/85; PULSE 96; RESP 18; TEMP 98.8; O2SAT 97
--- NOTE | 2016-08-31 11:33 | C.PDOC ---
History Of Present Illness Patient is a 56 y/o male that presents to the ED for evaluation of hearing voices and generalized abdominal pain. Patient is well known to ED for multiple prior visits with similar complaints. At bedside, patient is resting comfortably , and denies any physical complaints. No SI/HI. Time Seen by Provider: 08/31/16 11:14 Chief Complaint (Nursing): Psychiatric Evaluation History Per: Patient History/Exam Limitations: no limitations Onset/Duration Of Symptoms: Gradual Current Symptoms Are (Timing): Still Present Suicide/Self Injury Attempted (Context): None Modifying Factor(s): None Associated Symptoms: denies: Suicidal Thoughts, Suicidal Plan Involuntary Hold By: None Recent travel outside of the [place]: No Additional History Per: Prior Records Past Medical History Reviewed: Historical Data, Nursing Documentation, Vital Signs Vital Signs: Last Vital Signs Temp 98.8 F 08/31/16 10:56 Pulse 96 H 08/31/16 10:56 Resp 18 08/31/16 10:56 BP 126/85 08/31/16 10:56 Pulse Ox 97 08/31/16 13:54 - Medical History PMH: Anxiety, Asthma, Bipolar Disorder, Depression, Gastritis, Paranoia, Personality Disorder, Schizophrenia, Chronic Pain (abd) Denies: Diabetes, Hepatitis, HIV, HTN, Seizures, Sexually Transmitted Disease Surgical History: - [facility] Procedures APPLICATION OF SPLINT (04/09/14) CL FX REDUC-TIBIA/FIBULA (02/26/13) GROUP PSYCHOTHERAPY (07/30/16) INDIVID PSYCHOTHERAP NEC (12/17/13) INDIVIDUAL PSYCHOTHERAPY, BEHAVIORAL (01/29/16) INDIVIDUAL PSYCHOTHERAPY, COGNITIVE-BEHAVIORAL (07/30/16) INDIVIDUAL PSYCHOTHERAPY, SUPPORTIVE (07/22/16) MEDICATION MANAGEMENT (07/22/16) OTHER GROUP THERAPY (11/05/13) PSYCHIA INTERV/EVAL NEC (06/28/14) Family History: States: Unknown Family Hx - Social History Hx Tobacco Use: Yes (heavy smoker) Hx Alcohol Use: No Hx Substance Use: No - Immunization History Hx Tetanus Toxoid Vaccination: Yes Hx Influenza Vaccination: Yes (2016) Hx Pneumococcal Vaccination: Yes Review Of Systems Except As Marked, All Systems Reviewed And Found Negative. Constitutional: Negative for: Fever, Chills Cardiovascular: Negative for: Chest Pain, Palpitations Respiratory: Negative for: Cough, Shortness of Breath Gastrointestinal: Negative for: Nausea, Vomiting, Abdominal Pain, Diarrhea Neurological: Negative for: Weakness, Numbness, Headache, Dizziness Psych: Positive for: Other (hearing voices). Negative for: Suicidal ideation Physical Exam - Physical Exam Appears: Non-toxic, No Acute Distress Skin: Normal Color, Warm, Dry Head: Atraumatic, Normacephalic Neck: Normal ROM, Supple Cardiovascular: Rhythm Regular, No Murmur Respiratory: Normal Breath Sounds, No Rales, No Rhonchi, No Wheezing Gastrointestinal/Abdominal: Soft, No Tenderness Extremity: Normal ROM Neurological/Psych: Oriented x3, Normal Speech ED Course And Treatment O2 Sat by Pulse Oximetry: 97 (on RA) Pulse Ox Interpretation: Normal Medical Decision Making Medical Decision Making: pt well known to er, at bedside, sleeping comfortably, pt seen eloping from bed just a few min after physician eval ED OBSERVATION Date of observation admission: 08/31/16 Time of observation admission: 11:35 - Observation admission statement Patient is being placed in observation because:: Homeless - Progress Note Progress Note: 08/31/16 11:39 On reassessment, pt is resting comfortably in bed, no acute distress. Pt denies any physical complaints at this time. Disposition - Disposition Disposition: ELOPEMENT - ER ONLY Disposition Time: 01:30 Condition: STABLE - Clinical Impression Clinical Impression: Homeless - Scribe Statement The provider has reviewed the documentation as recorded by the Leonard Chow Provider Attestation: All medical record entries made by the Leonard were at my direction and personally dictated by me. I have reviewed the chart and agree that the record accurately reflects my personal performance of the history, physical exam, medical decision making, and the department course for this patient. I have also personally directed, reviewed, and agree with the discharge instructions and disposition.
== END 2016-08-31 13:54 | disposition home or self-care (01) ==
LOC: C.ER 10:54 → C.9OBSV 11:30
PROVIDERS: ADMIT Student in an Organized Health Care Education/Training Program; ATTEND Student in an Organized Health Care Education/Training Program
DX: Z04.8 Encounter for examination and observation for other specified reasons (principal); Z59.0 Homelessness; F60.9 Personality disorder, unspecified; F31.9 Bipolar disorder, unspecified; Z87.891 Personal history of nicotine dependence
CPT/HCPCS: 99282; G0378

== ENCOUNTER 2016-09-01 23:53 | Observation (INO) | payer MEDICARE ==
--- NOTE | 2016-09-02 00:28 | C.PDOC ---
History Of Present Illness Patient presents to the ER requesting a place to stay the night. Patient denies any physical complaints at this time. Time Seen by Provider: 09/02/16 00:27 History Per: Patient History/Exam Limitations: no limitations Onset/Duration Of Symptoms: Hrs Current Symptoms Are (Timing): Still Present Suicide/Self Injury Attempted (Context): None Modifying Factor(s): None Severity: None Pain Scale Rating Of: 0 Associated Symptoms: denies: Depression, Suicidal Thoughts, Suicidal Plan Involuntary Hold By: None Recent travel outside of the [place]: No Past Medical History Reviewed: Historical Data, Nursing Documentation, Vital Signs Vital Signs: Last Vital Signs Temp 97.8 F 09/02/16 04:07 Pulse 79 09/02/16 04:07 Resp 16 09/02/16 04:07 BP 104/65 09/02/16 04:07 Pulse Ox 97 09/02/16 04:07 - Medical History PMH: Anxiety, Asthma, Bipolar Disorder, Depression, Gastritis, Paranoia, Personality Disorder, Schizophrenia, Chronic Pain (abd) Surgical History: - [facility] Procedures APPLICATION OF SPLINT (04/09/14) CL FX REDUC-TIBIA/FIBULA (02/26/13) GROUP PSYCHOTHERAPY (07/30/16) INDIVID PSYCHOTHERAP NEC (12/17/13) INDIVIDUAL PSYCHOTHERAPY, BEHAVIORAL (01/29/16) INDIVIDUAL PSYCHOTHERAPY, COGNITIVE-BEHAVIORAL (07/30/16) INDIVIDUAL PSYCHOTHERAPY, SUPPORTIVE (07/22/16) MEDICATION MANAGEMENT (07/22/16) OTHER GROUP THERAPY (11/05/13) PSYCHIA INTERV/EVAL NEC (06/28/14) Family History: States: No Known Family Hx - Social History Hx Tobacco Use: Yes (heavy smoker) Hx Alcohol Use: No Hx Substance Use: No - Immunization History Hx Tetanus Toxoid Vaccination: Yes Hx Influenza Vaccination: Yes (2016) Hx Pneumococcal Vaccination: Yes Review Of Systems Constitutional: Negative for: Fever, Chills Gastrointestinal: Negative for: Nausea, Vomiting, Diarrhea Physical Exam - Physical Exam Appears: Non-toxic Skin: Warm, Dry Oral Mucosa: Moist Chest: Symmetrical, No Tenderness Cardiovascular: Rhythm Regular, No Murmur Respiratory: No Rales, No Rhonchi, No Wheezing Gastrointestinal/Abdominal: Soft, No Tenderness Neurological/Psych: Oriented x3 ED Course And Treatment O2 Sat by Pulse Oximetry: 99 Pulse Ox Interpretation: Normal Reevaluation Time: 05:05 Reassessment Condition: Improved ED OBSERVATION Discharge: Yes Date of observation admission: 09/02/16 Time of observation admission: 00:31 - Observation admission statement Patient is being placed in observation because:: homeless, schizophrenic - Goals of Observation Goals of observation are:: social service - Progress Note Progress Note: 09/02/16 00:32 vitals stable, no complaints 09/02/16 04:05 arousable, no complaints Disposition Counseled Patient/Family Regarding: Studies Performed, Diagnosis, Need For Followup - Disposition Disposition: HOME/ ROUTINE Disposition Time: 00:28 Condition: FAIR - Clinical Impression Clinical Impression: Schizophrenia - Scribe Statement The provider has reviewed the documentation as recorded by the Scribalexis Gottlieb All medical record entries made by the Madhavibalexis were at my direction and personally dictated by me. I have reviewed the chart and agree that the record accurately reflects my personal performance of the history, physical exam, medical decision making, and the department course for this patient. I have also personally directed, reviewed, and agree with the discharge instructions and disposition.
[2016-09-02 00:29] VITALS: BMI 23.0
[2016-09-02 04:08] VITALS: RESP 16
[2016-09-02 05:06] VITALS: O2SAT 99
[2016-09-02 05:34] VITALS: BP 125/78; PULSE 89; TEMP 98
== END 2016-09-02 05:05 | disposition home or self-care (01) ==
LOC: C.ER 23:53 → C.9OBSV 09-02 00:29
PROVIDERS: ADMIT Emergency Medicine; ATTEND Emergency Medicine
DX: F20.9 Schizophrenia, unspecified (principal); F22 Delusional disorders; J45.909 Unspecified asthma, uncomplicated; F17.210 Nicotine dependence, cigarettes, uncomplicated

== ENCOUNTER 2016-09-03 21:40 | Observation (INO) | payer MEDICARE ==
[2016-09-03 21:41] VITALS: BMI 23.0
--- NOTE | 2016-09-03 22:06 | C.PDOC ---
History Of Present Illness Patient is a 56 year old male with a PMHx of hearing voices who presents to the ER with a complaint of hearing voices. Patient is also known to be homeless and is asking for a place to stay the night. Denies any physical complaints at this time. Chief Complaint (Nursing): Medical Clearance History Per: Patient History/Exam Limitations: no limitations Onset/Duration Of Symptoms: Hrs Current Symptoms Are (Timing): Still Present Reports Recently: Seen In ED Recent travel outside of the [place]: No Past Medical History Reviewed: Historical Data, Nursing Documentation, Vital Signs Vital Signs: Last Vital Signs Temp 97.9 F 09/04/16 05:41 Pulse 71 09/04/16 05:41 Resp 16 09/04/16 05:41 BP 117/70 09/04/16 05:41 Pulse Ox 98 09/04/16 05:41 - Medical History PMH: Anxiety, Asthma, Bipolar Disorder, Depression, Gastritis, Paranoia, Personality Disorder, Schizophrenia, Chronic Pain (abd) Surgical History: - [facility] Procedures APPLICATION OF SPLINT (04/09/14) CL FX REDUC-TIBIA/FIBULA (02/26/13) GROUP PSYCHOTHERAPY (07/30/16) INDIVID PSYCHOTHERAP NEC (12/17/13) INDIVIDUAL PSYCHOTHERAPY, BEHAVIORAL (01/29/16) INDIVIDUAL PSYCHOTHERAPY, COGNITIVE-BEHAVIORAL (07/30/16) INDIVIDUAL PSYCHOTHERAPY, SUPPORTIVE (07/22/16) MEDICATION MANAGEMENT (07/22/16) OTHER GROUP THERAPY (11/05/13) PSYCHIA INTERV/EVAL NEC (06/28/14) Family History: States: Unknown Family Hx - Social History Hx Tobacco Use: Yes (heavy smoker) Hx Alcohol Use: No Hx Substance Use: No - Immunization History Hx Tetanus Toxoid Vaccination: Yes Hx Influenza Vaccination: Yes (2016) Hx Pneumococcal Vaccination: Yes Review Of Systems Constitutional: Negative for: Fever, Chills Gastrointestinal: Negative for: Nausea, Vomiting, Diarrhea Psych: Positive for: Other (Hearing voices) Physical Exam - Physical Exam Appears: Well, Non-toxic Skin: Normal Color, Warm, Dry Head: Atraumatic, Normacephalic Oral Mucosa: Moist Chest: Symmetrical, No Tenderness Cardiovascular: Rhythm Regular, No Murmur Respiratory: Normal Breath Sounds, No Rales, No Rhonchi, No Wheezing Gastrointestinal/Abdominal: Soft, No Tenderness Neurological/Psych: Oriented x3, Normal Speech, Normal Cognition ED Course And Treatment O2 Sat by Pulse Oximetry: 96 (Room air) Pulse Ox Interpretation: Normal ED OBSERVATION Date of observation admission: 09/03/16 Time of observation admission: 22:10 - Observation admission statement Patient is being placed in observation because:: Needs a place to stay - Goals of Observation Goals of observation are:: Social service Disposition - Disposition Disposition: HOME/ ROUTINE Disposition Time: 05:50 Condition: STABLE - POA Present On Arrival: None - Clinical Impression Clinical Impression: Auditory hallucination, Homeless - Scribe Statement The provider has reviewed the documentation as recorded by the Scribe Howard Gottlieb All medical record entries made by the Leonard were at my direction and personally dictated by me. I have reviewed the chart and agree that the record accurately reflects my personal performance of the history, physical exam, medical decision making, and the department course for this patient. I have also personally directed, reviewed, and agree with the discharge instructions and disposition.
[2016-09-04 02:52] VITALS: PULSE 71; RESP 16
[2016-09-04 05:41] VITALS: BP 117/70; TEMP 97.9
[2016-09-07 16:27] VITALS: O2SAT 96
== END 2016-09-04 05:00 | disposition home or self-care (01) ==
LOC: C.ER 21:40 → C.9OBSV 22:04
PROVIDERS: ADMIT Emergency Medicine; ATTEND Emergency Medicine
DX: F22 Delusional disorders (principal); Z59.0 Homelessness; Z87.891 Personal history of nicotine dependence
CPT/HCPCS: G0378 ×2

== ENCOUNTER 2016-09-04 23:01 | Emergency (ER) | payer MEDICARE ==
[2016-09-04 23:01] VITALS: BMI 23.0
[2016-09-04 23:10] VITALS: O2SAT 97
--- NOTE | 2016-09-05 00:29 | C.PDOC ---
History Of Present Illness Patient is a 56 year old male with a PMHx of hearing voices who presents to the ER with a complaint of hearing voices. Patient is also known to be homeless and is asking for a place to stay the night. Denies any physical complaints at this time. Time Seen by Provider: 09/05/16 00:30 Chief Complaint (Nursing): Medical Clearance History Per: Patient History/Exam Limitations: no limitations Onset/Duration Of Symptoms: Hrs Current Symptoms Are (Timing): Still Present Severity: Mild Reports Recently: Seen In ED Recent travel outside of the [place]: No Additional History Per: Patient Past Medical History Reviewed: Historical Data, Nursing Documentation, Vital Signs Vital Signs: Last Vital Signs Temp 97.2 F L 09/05/16 04:00 Pulse 70 09/05/16 04:00 Resp 14 09/05/16 04:00 BP 130/80 09/05/16 04:00 Pulse Ox 97 09/05/16 04:00 - Medical History PMH: Anxiety, Asthma, Bipolar Disorder, Depression, Gastritis, Paranoia, Personality Disorder, Schizophrenia, Chronic Pain (abd) Denies: Diabetes, Hepatitis, HIV, HTN, Seizures, Sexually Transmitted Disease Surgical History: - [facility] Procedures APPLICATION OF SPLINT (04/09/14) CL FX REDUC-TIBIA/FIBULA (02/26/13) GROUP PSYCHOTHERAPY (07/30/16) INDIVID PSYCHOTHERAP NEC (12/17/13) INDIVIDUAL PSYCHOTHERAPY, BEHAVIORAL (01/29/16) INDIVIDUAL PSYCHOTHERAPY, COGNITIVE-BEHAVIORAL (07/30/16) INDIVIDUAL PSYCHOTHERAPY, SUPPORTIVE (07/22/16) MEDICATION MANAGEMENT (07/22/16) OTHER GROUP THERAPY (11/05/13) PSYCHIA INTERV/EVAL NEC (06/28/14) Family History: States: Unknown Family Hx - Social History Hx Tobacco Use: Yes (heavy smoker) Hx Alcohol Use: No Hx Substance Use: No - Immunization History Hx Tetanus Toxoid Vaccination: Yes Hx Influenza Vaccination: Yes (2016) Hx Pneumococcal Vaccination: Yes Review Of Systems Except As Marked, All Systems Reviewed And Found Negative. Constitutional: Negative for: Fever, Chills Gastrointestinal: Negative for: Nausea, Vomiting, Diarrhea Psych: Positive for: Psychosis (Hearing voices). Negative for: Suicidal ideation Physical Exam - Physical Exam Appears: Non-toxic, No Acute Distress Skin: Warm, Dry Head: Atraumatic, Normacephalic Eye(s): bilateral: Normal Inspection Oral Mucosa: Moist Neck: Supple Chest: Symmetrical Cardiovascular: Rhythm Regular, No Murmur Respiratory: Normal Breath Sounds, No Accessory Muscle Use, No Rales, No Rhonchi , No Wheezing Gastrointestinal/Abdominal: Soft, No Tenderness Back: Normal Inspection, No CVA Tenderness, No Vertebral Tenderness, No Paraspinal Tenderness Neurological/Psych: Oriented x3, Normal Speech, Other (Awake and alert) Gait: Steady ED Course And Treatment O2 Sat by Pulse Oximetry: 97 (RA) Pulse Ox Interpretation: Normal Medical Decision Making Medical Decision Making: Impression: 56 y/o c/o hearinig voices. Pt well known in the ER. Plans: ED Obs Disposition Counseled Patient/Family Regarding: Diagnosis - Disposition Disposition: HOME/ ROUTINE Disposition Time: 05:40 Condition: STABLE - POA Present On Arrival: None - Clinical Impression Clinical Impression: Homeless, Auditory hallucination - Scribe Statement The provider has reviewed the documentation as recorded by the Madhavibalexis bowden All medical record entries made by the Leonard were at my direction and personally dictated by me. I have reviewed the chart and agree that the record accurately reflects my personal performance of the history, physical exam, medical decision making, and the department course for this patient. I have also personally directed, reviewed, and agree with the discharge instructions and disposition.
[2016-09-05 07:01] VITALS: BP 130/80; PULSE 70; RESP 14; TEMP 97.2
== END 2016-09-05 06:00 | disposition home or self-care (01) ==
LOC: C.ER 23:01
DX: R44.0 Auditory hallucinations (principal); Z59.0 Homelessness

== ENCOUNTER 2016-09-06 19:15 | Emergency (ER) | payer MEDICARE ==
[2016-09-06 19:15] VITALS: BMI 23.0
--- NOTE | 2016-09-06 19:49 | C.PDOC ---
History Of Present Illness Patient presents to the ED seeking a place to stay. Patient denies any physical complaints at this time. Time Seen by Provider: 09/06/16 19:49 Chief Complaint (Nursing): Medical Clearance History Per: Patient History/Exam Limitations: no limitations Reports Recently: Seen In ED Recent travel outside of the [place]: No Past Medical History Reviewed: Historical Data, Nursing Documentation, Vital Signs Vital Signs: Last Vital Signs Temp 97.9 F 09/07/16 00:28 Pulse 72 09/07/16 00:28 Resp 18 09/07/16 00:28 BP 116/72 09/07/16 00:28 Pulse Ox 97 09/07/16 00:28 - Medical History PMH: Anxiety, Asthma, Bipolar Disorder, Depression, Gastritis, Paranoia, Personality Disorder, Schizophrenia, Seizures, Chronic Pain (abd) Surgical History: - [facility] Procedures APPLICATION OF SPLINT (04/09/14) CL FX REDUC-TIBIA/FIBULA (02/26/13) GROUP PSYCHOTHERAPY (07/30/16) INDIVID PSYCHOTHERAP NEC (12/17/13) INDIVIDUAL PSYCHOTHERAPY, BEHAVIORAL (01/29/16) INDIVIDUAL PSYCHOTHERAPY, COGNITIVE-BEHAVIORAL (07/30/16) INDIVIDUAL PSYCHOTHERAPY, SUPPORTIVE (07/22/16) MEDICATION MANAGEMENT (07/22/16) OTHER GROUP THERAPY (11/05/13) PSYCHIA INTERV/EVAL NEC (06/28/14) Family History: States: Unknown Family Hx - Social History Hx Tobacco Use: Yes (heavy smoker) Hx Alcohol Use: No Hx Substance Use: No - Immunization History Hx Tetanus Toxoid Vaccination: No Hx Influenza Vaccination: No (2016) Hx Pneumococcal Vaccination: No Review Of Systems Constitutional: Negative for: Fever, Chills, Sweats Cardiovascular: Negative for: Chest Pain, Palpitations Respiratory: Negative for: Cough, Shortness of Breath Gastrointestinal: Negative for: Nausea, Vomiting, Abdominal Pain, Diarrhea Physical Exam - Physical Exam Appears: Non-toxic, No Acute Distress Skin: Warm, Dry Head: Atraumatic Oral Mucosa: Moist Neck: Supple Cardiovascular: Rhythm Regular Respiratory: No Rales, No Rhonchi, No Stridor, No Wheezing Gastrointestinal/Abdominal: Soft, No Tenderness, No Distention, No Guarding, No Rebound Extremity: Normal ROM, No Tenderness Neurological/Psych: Oriented x3 ED Course And Treatment O2 Sat by Pulse Oximetry: 100 (room air ) ED OBSERVATION Discharge: Yes Date of observation admission: 09/06/16 Time of observation admission: 19:50 - Observation admission statement Patient is being placed in observation because:: homeless - Goals of Observation Goals of observation are:: social service - Progress Note Progress Note: 09/06/16 19:50 vitals stable, no complains Disposition Counseled Patient/Family Regarding: Studies Performed, Diagnosis - Disposition Disposition: HOME/ ROUTINE Disposition Time: 19:49 Condition: GOOD - Clinical Impression Clinical Impression: Schizophrenia - Scribe Statement The provider has reviewed the documentation as recorded by the Madhavibalexis Ralph All medical record entries made by the Leonard were at my direction and personally dictated by me. I have reviewed the chart and agree that the record accurately reflects my personal performance of the history, physical exam, medical decision making, and the department course for this patient. I have also personally directed, reviewed, and agree with the discharge instructions and disposition.
[2016-09-07 00:30] VITALS: BP 116/72; PULSE 72; RESP 18; TEMP 97.9
[2016-09-07 02:10] VITALS: O2SAT 100
== END 2016-09-07 00:30 | disposition home or self-care (01) ==
LOC: C.ER 19:15 → C.9OBSV 19:49 → UNDOADMOB 19:49 → UNDODISOB 09-07 02:09
DX: F20.9 Schizophrenia, unspecified (principal); Z59.0 Homelessness

== ENCOUNTER → 2016-09-07 17:38 | Emergency (ER) | payer MEDICARE ==
[2016-09-07 17:38] VITALS: BMI 23.0
[~2016-09-07 17:38] MED LIST: Bacitracin 500 Units/gm Oint Foilpak UD ONE
== END | disposition left against medical advice (07) ==
LOC: C.ER 17:38
DX: Z02.89 Encounter for other administrative examinations (principal); R10.9 Unspecified abdominal pain

== ENCOUNTER 2016-09-07 18:28 | Observation (INO) | payer MEDICARE ==
[2016-09-07 18:29] VITALS: BMI 23.0
--- NOTE | 2016-09-07 19:16 | C.PDOC ---
History Of Present Illness Patient presents to the ED seeking a place to stay. Patient denies any suicidal ideations or physical complaints at this time. Time Seen by Provider: 09/07/16 19:15 Chief Complaint (Nursing): Psychiatric Evaluation History Per: Patient History/Exam Limitations: no limitations Suicide/Self Injury Attempted (Context): None Associated Symptoms: denies: Agitation, Paranoia, Suicidal Thoughts, Suicidal Plan Involuntary Hold By: None Recent travel outside of the [place]: No Past Medical History Reviewed: Historical Data, Nursing Documentation, Vital Signs Vital Signs: Last Vital Signs Temp 97.8 F 09/07/16 18:30 Pulse 73 09/08/16 02:45 Resp 20 09/08/16 02:45 BP 119/71 09/08/16 02:45 Pulse Ox 97 09/08/16 02:45 - Medical History PMH: Anxiety, Asthma, Bipolar Disorder, Depression, Gastritis, Paranoia, Personality Disorder, Schizophrenia, Seizures, Chronic Pain (abd) Surgical History: - [facility] Procedures APPLICATION OF SPLINT (04/09/14) CL FX REDUC-TIBIA/FIBULA (02/26/13) GROUP PSYCHOTHERAPY (07/30/16) INDIVID PSYCHOTHERAP NEC (12/17/13) INDIVIDUAL PSYCHOTHERAPY, BEHAVIORAL (01/29/16) INDIVIDUAL PSYCHOTHERAPY, COGNITIVE-BEHAVIORAL (07/30/16) INDIVIDUAL PSYCHOTHERAPY, SUPPORTIVE (07/22/16) MEDICATION MANAGEMENT (07/22/16) OTHER GROUP THERAPY (11/05/13) PSYCHIA INTERV/EVAL NEC (06/28/14) Family History: States: Unknown Family Hx - Social History Hx Tobacco Use: Yes (heavy smoker) Hx Alcohol Use: No Hx Substance Use: No - Immunization History Hx Tetanus Toxoid Vaccination: No Hx Influenza Vaccination: No (2016) Hx Pneumococcal Vaccination: No Review Of Systems Constitutional: Negative for: Fever, Chills, Sweats Cardiovascular: Negative for: Chest Pain, Palpitations Respiratory: Negative for: Cough, Shortness of Breath Gastrointestinal: Negative for: Nausea, Vomiting, Abdominal Pain, Diarrhea Neurological: Negative for: Headache Physical Exam - Physical Exam Appears: Non-toxic, No Acute Distress Skin: Warm, Dry Head: Atraumatic Oral Mucosa: Moist Neck: Supple Chest: Symmetrical Cardiovascular: Rhythm Regular Respiratory: No Rales, No Rhonchi, No Stridor, No Wheezing Gastrointestinal/Abdominal: Soft, No Tenderness, No Distention, No Guarding, No Rebound Extremity: Normal ROM, No Tenderness Neurological/Psych: Oriented x3 ED Course And Treatment O2 Sat by Pulse Oximetry: 97 (room air ) Pulse Ox Interpretation: Normal Reevaluation Time: 05:27 Reassessment Condition: Improved ED OBSERVATION Discharge: Yes Date of observation admission: 09/07/16 Time of observation admission: 19:24 - Observation admission statement Patient is being placed in observation because:: Patient has a history of schizophrenia and is homeless. 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 Disposition Counseled Patient/Family Regarding: Studies Performed, Diagnosis, Need For Followup - Disposition Disposition: HOME/ ROUTINE Disposition Time: 19:15 Condition: FAIR - Clinical Impression Clinical Impression: Schizophrenia - Scribe Statement The provider has reviewed the documentation as recorded by the Madhavibalexis Ralph All medical record entries made by the Madhavibalexis were at my direction and personally dictated by me. I have reviewed the chart and agree that the record accurately reflects my personal performance of the history, physical exam, medical decision making, and the department course for this patient. I have also personally directed, reviewed, and agree with the discharge instructions and disposition.
[2016-09-07 22:19] VITALS: RESP 20
[2016-09-08 05:47] VITALS: BP 114/70; PULSE 90; TEMP 97.3; O2SAT 98
== END 2016-09-08 05:27 | disposition home or self-care (01) ==
LOC: C.ER 18:28 → C.9OBSV 19:16
PROVIDERS: ADMIT Emergency Medicine; ATTEND Emergency Medicine
DX: F20.9 Schizophrenia, unspecified (principal); F17.210 Nicotine dependence, cigarettes, uncomplicated
CPT/HCPCS: 99285; G0378

== ENCOUNTER 2016-09-09 01:36 | Emergency (ER) | payer MEDICARE ==
[2016-09-09 01:36] VITALS: BMI 23.0
[2016-09-09 01:46] VITALS: O2SAT 98
--- NOTE | 2016-09-09 01:50 | C.PDOC ---
History Of Present Illness Patient is a 56 year old male who presents to the ER with a complaint of hearing voices. Patient denies SI, HI or any physical complaints. Chief Complaint (Nursing): Psychiatric Evaluation History Per: Patient History/Exam Limitations: no limitations Onset/Duration Of Symptoms: Hrs Current Symptoms Are (Timing): Still Present Suicide/Self Injury Attempted (Context): None Modifying Factor(s): None Associated Symptoms: denies: Depression, Suicidal Thoughts, Suicidal Plan Involuntary Hold By: None Recent travel outside of the [place]: No Past Medical History Reviewed: Historical Data, Nursing Documentation, Vital Signs Vital Signs: Last Vital Signs Temp 97.8 F 09/09/16 06:14 Pulse 67 09/09/16 06:14 Resp 16 09/09/16 06:14 BP 118/65 09/09/16 06:14 Pulse Ox 98 09/09/16 21:54 - Medical History PMH: Anxiety, Asthma, Bipolar Disorder, Depression, Gastritis, Paranoia, Personality Disorder, Schizophrenia, Seizures, Chronic Pain (abd) Surgical History: - [facility] Procedures APPLICATION OF SPLINT (04/09/14) CL FX REDUC-TIBIA/FIBULA (02/26/13) GROUP PSYCHOTHERAPY (07/30/16) INDIVID PSYCHOTHERAP NEC (12/17/13) INDIVIDUAL PSYCHOTHERAPY, BEHAVIORAL (01/29/16) INDIVIDUAL PSYCHOTHERAPY, COGNITIVE-BEHAVIORAL (07/30/16) INDIVIDUAL PSYCHOTHERAPY, SUPPORTIVE (07/22/16) MEDICATION MANAGEMENT (07/22/16) OTHER GROUP THERAPY (11/05/13) PSYCHIA INTERV/EVAL NEC (06/28/14) Family History: States: Unknown Family Hx - Social History Hx Tobacco Use: Yes (heavy smoker) Hx Alcohol Use: No Hx Substance Use: No - Immunization History Hx Tetanus Toxoid Vaccination: No Hx Influenza Vaccination: No (2017) Hx Pneumococcal Vaccination: No Review Of Systems Constitutional: Negative for: Fever, Chills Gastrointestinal: Negative for: Nausea, Vomiting, Diarrhea Psych: Negative for: Suicidal ideation, Other (Homicidal ideation) Physical Exam - Physical Exam Appears: Well, Non-toxic Skin: Normal Color, Warm, Dry Head: Atraumatic, Normacephalic Oral Mucosa: Moist Chest: Symmetrical, No Tenderness Cardiovascular: Rhythm Regular, No Murmur Respiratory: Normal Breath Sounds, No Rales, No Rhonchi, No Wheezing Gastrointestinal/Abdominal: Soft, No Tenderness Neurological/Psych: Oriented x3, Normal Speech, Normal Cognition ED Course And Treatment O2 Sat by Pulse Oximetry: 98 ED OBSERVATION Date of observation admission: 09/09/16 Time of observation admission: 02:01 - Observation admission statement Patient is being placed in observation because:: Homelessness - Goals of Observation Goals of observation are:: Social service Disposition Counseled Patient/Family Regarding: Diagnosis - Disposition Referrals: [facility] [Outside] Disposition: HOME/ ROUTINE Disposition Time: 05:40 Condition: STABLE Instructions: Hallucinations (ED) - POA Present On Arrival: None - Clinical Impression Clinical Impression: Homeless, Auditory hallucinations - Scribe Statement The provider has reviewed the documentation as recorded by the Scribe Provider Attestation: Howard Gottlieb All medical record entries made by the Scribe were at my direction and personally dictated by me. I have reviewed the chart and agree that the record accurately reflects my personal performance of the history, physical exam, medical decision making, and the department course for this patient. I have also personally directed, reviewed, and agree with the discharge instructions and disposition.
[2016-09-09 06:15] VITALS: BP 118/65; PULSE 67; RESP 16; TEMP 97.8
== END 2016-09-09 06:24 | disposition home or self-care (01) ==
LOC: C.ER 01:36
DX: R44.0 Auditory hallucinations (principal); Z59.0 Homelessness

== ENCOUNTER 2016-09-11 22:08 | Emergency (ER) | payer MEDICARE ==
[2016-09-11 22:09] VITALS: BMI 23.7
--- NOTE | 2016-09-11 22:17 | C.PDOC ---
History Of Present Illness Patient presents to the ER looking for a place to spend the night. Patient is homeless and well known to the ER. Denies any physical complaints at this time. Time Seen by Provider: 09/11/16 22:17 Chief Complaint (Nursing): Psychiatric Evaluation History Per: Patient History/Exam Limitations: no limitations Onset/Duration Of Symptoms: Days Current Symptoms Are (Timing): Still Present Suicide/Self Injury Attempted (Context): None Modifying Factor(s): None Severity: None Pain Scale Rating Of: 0 Associated Symptoms: denies: Depression, Suicidal Thoughts, Suicidal Plan Involuntary Hold By: None Recent travel outside of the [place]: No Past Medical History Reviewed: Historical Data, Nursing Documentation, Vital Signs Vital Signs: Last Vital Signs Temp 98.1 F 09/12/16 02:53 Pulse 84 09/12/16 02:53 Resp 18 09/12/16 02:53 BP 127/84 09/12/16 02:53 Pulse Ox 98 09/12/16 02:53 - Medical History PMH: Anxiety, Asthma, Bipolar Disorder, Depression, Gastritis, Paranoia, Personality Disorder, Schizophrenia, Seizures, Chronic Pain (abd) Surgical History: - [facility] Procedures APPLICATION OF SPLINT (04/09/14) CL FX REDUC-TIBIA/FIBULA (02/26/13) GROUP PSYCHOTHERAPY (07/30/16) INDIVID PSYCHOTHERAP NEC (12/17/13) INDIVIDUAL PSYCHOTHERAPY, BEHAVIORAL (01/29/16) INDIVIDUAL PSYCHOTHERAPY, COGNITIVE-BEHAVIORAL (07/30/16) INDIVIDUAL PSYCHOTHERAPY, SUPPORTIVE (07/22/16) MEDICATION MANAGEMENT (07/22/16) OTHER GROUP THERAPY (11/05/13) PSYCHIA INTERV/EVAL NEC (06/28/14) Family History: States: No Known Family Hx - Social History Hx Tobacco Use: Yes (heavy smoker) Hx Alcohol Use: No Hx Substance Use: No - Immunization History Hx Tetanus Toxoid Vaccination: No Hx Influenza Vaccination: No (2017) Hx Pneumococcal Vaccination: No Review Of Systems Constitutional: Negative for: Fever, Chills Gastrointestinal: Negative for: Nausea, Vomiting, Diarrhea Physical Exam - Physical Exam Appears: Non-toxic Skin: Warm, Dry Oral Mucosa: Moist Chest: Symmetrical, No Tenderness Cardiovascular: Rhythm Regular, No Murmur Respiratory: No Rales, No Rhonchi, No Wheezing Gastrointestinal/Abdominal: Soft, No Tenderness Neurological/Psych: Oriented x3 ED Course And Treatment O2 Sat by Pulse Oximetry: 99 (Room air) Pulse Ox Interpretation: Normal ED OBSERVATION Discharge: Yes Date of observation admission: 09/11/16 Time of observation admission: 22:18 - Observation admission statement Patient is being placed in observation because:: homeless, schizophrenia - Goals of Observation Goals of observation are:: social service - Progress Note Progress Note: 09/11/16 22:18 vitals stable, just wants to sleep 09/12/16 01:46 vitals stable Disposition Counseled Patient/Family Regarding: Studies Performed, Diagnosis, Need For Followup - Disposition Disposition: HOME/ ROUTINE Disposition Time: 22:17 Condition: FAIR Instructions: Schizophrenia (ED) - Clinical Impression Clinical Impression: Schizophrenia - Scribe Statement The provider has reviewed the documentation as recorded by the Scribe Howard Gottlieb All medical record entries made by the Scribe were at my direction and personally dictated by me. I have reviewed the chart and agree that the record accurately reflects my personal performance of the history, physical exam, medical decision making, and the department course for this patient. I have also personally directed, reviewed, and agree with the discharge instructions and disposition.
[2016-09-12 05:39] VITALS: O2SAT 99
[2016-09-12 06:22] VITALS: BP 131/79; PULSE 79; RESP 20; TEMP 97.7
== END 2016-09-12 06:22 | disposition home or self-care (01) ==
LOC: C.ER 22:08
DX: F20.9 Schizophrenia, unspecified (principal); Z59.0 Homelessness

== ENCOUNTER 2016-09-12 21:01 | Observation (INO) | payer MEDICARE ==
[2016-09-12 21:01] VITALS: BMI 23.0
[2016-09-12 21:14] VITALS: BP 137/85; PULSE 83; RESP 20; TEMP 98.2; O2SAT 96
--- NOTE | 2016-09-12 21:42 | C.PDOC ---
History Of Present Illness Patient presents to the ED seeking a place to sleep for the night and denies any physical complaints at this time. Time Seen by Provider: 09/12/16 21:27 Chief Complaint (Nursing): Psychiatric Evaluation History Per: Patient History/Exam Limitations: no limitations Suicide/Self Injury Attempted (Context): None Severity: None Associated Symptoms: denies: Suicidal Thoughts, Suicidal Plan Involuntary Hold By: None Recent travel outside of the [place]: No Additional History Per: Prior Records Past Medical History Reviewed: Historical Data, Nursing Documentation, Vital Signs Vital Signs: Last Vital Signs Temp 98.2 F 09/12/16 21:11 Pulse 83 09/12/16 21:11 Resp 20 09/12/16 21:11 BP 137/85 09/12/16 21:11 Pulse Ox 96 09/12/16 21:59 - Medical History PMH: Anxiety, Asthma, Bipolar Disorder, Depression, Gastritis, Paranoia, Personality Disorder, Schizophrenia, Seizures, Chronic Pain (abd) Surgical History: - [facility] Procedures APPLICATION OF SPLINT (04/09/14) CL FX REDUC-TIBIA/FIBULA (02/26/13) GROUP PSYCHOTHERAPY (07/30/16) INDIVID PSYCHOTHERAP NEC (12/17/13) INDIVIDUAL PSYCHOTHERAPY, BEHAVIORAL (01/29/16) INDIVIDUAL PSYCHOTHERAPY, COGNITIVE-BEHAVIORAL (07/30/16) INDIVIDUAL PSYCHOTHERAPY, SUPPORTIVE (07/22/16) MEDICATION MANAGEMENT (07/22/16) OTHER GROUP THERAPY (11/05/13) PSYCHIA INTERV/EVAL NEC (06/28/14) Family History: States: Unknown Family Hx - Social History Hx Tobacco Use: Yes (heavy smoker) Hx Alcohol Use: No Hx Substance Use: No - Immunization History Hx Tetanus Toxoid Vaccination: No Hx Influenza Vaccination: No (2016) Hx Pneumococcal Vaccination: No Review Of Systems Constitutional: Negative for: Fever, Chills, Sweats Cardiovascular: Negative for: Chest Pain, Palpitations Respiratory: Negative for: Cough, Shortness of Breath Gastrointestinal: Negative for: Nausea, Vomiting, Abdominal Pain, Diarrhea Psych: Negative for: Suicidal ideation Physical Exam - Physical Exam Appears: Non-toxic, No Acute Distress Skin: Warm, Dry Head: Atraumatic Oral Mucosa: Moist Neck: Supple Chest: No Deformity Cardiovascular: Rhythm Regular Respiratory: No Rales, No Rhonchi, No Stridor, No Wheezing Gastrointestinal/Abdominal: Soft, No Tenderness, No Distention, No Guarding, No Rebound Extremity: Normal ROM, No Tenderness Neurological/Psych: Oriented x3 ED Course And Treatment O2 Sat by Pulse Oximetry: 96 (room air ) Pulse Ox Interpretation: Normal Reevaluation Time: 02:23 Reassessment Condition: Improved Disposition Counseled Patient/Family Regarding: Studies Performed, Diagnosis, Need For Followup - Disposition Disposition: HOME/ ROUTINE Disposition Time: 21:52 Condition: FAIR - Clinical Impression Clinical Impression: Schizophrenia - Scribe Statement The provider has reviewed the documentation as recorded by the Madhavibalexis Ralph All medical record entries made by the Leonard were at my direction and personally dictated by me. I have reviewed the chart and agree that the record accurately reflects my personal performance of the history, physical exam, medical decision making, and the department course for this patient. I have also personally directed, reviewed, and agree with the discharge instructions and disposition.
== END 2016-09-13 02:23 | disposition home or self-care (01) ==
LOC: C.ER 21:01 → C.9OBSV 21:52
PROVIDERS: ADMIT Emergency Medicine; ATTEND Emergency Medicine
DX: Z59.0 Homelessness (principal); F31.9 Bipolar disorder, unspecified; F41.8 Other specified anxiety disorders; F20.9 Schizophrenia, unspecified; G40.909 Epilepsy, unspecified, not intractable, without status epilepticus
CPT/HCPCS: 99282; G0378

== ENCOUNTER 2016-09-14 23:30 | Emergency (ER) | payer MEDICARE ==
[2016-09-14 23:31] VITALS: BMI 23.0
[2016-09-14 23:40] VITALS: RESP 16
--- NOTE | 2016-09-15 01:03 | C.PDOC ---
History Of Present Illness A 56 y/o male c/o hearing voices and not feeling well today. Pt denies suicidal or homicidal ideation, or any physical complaints at this time. Pt notes being homeless. Time Seen by Provider: 09/15/16 01:10 Chief Complaint (Nursing): Psychiatric Evaluation History Per: Patient History/Exam Limitations: no limitations Onset/Duration Of Symptoms: Hrs Current Symptoms Are (Timing): Still Present Suicide/Self Injury Attempted (Context): None Modifying Factor(s): None Severity: Mild Associated Symptoms: denies: Suicidal Thoughts, Suicidal Plan Involuntary Hold By: None Recent travel outside of the [place]: No Additional History Per: Patient Past Medical History Reviewed: Historical Data, Nursing Documentation, Vital Signs Vital Signs: Last Vital Signs Temp 97.8 F 09/15/16 05:44 Pulse 69 09/15/16 05:44 Resp 16 09/15/16 05:44 BP 110/73 09/15/16 05:44 Pulse Ox 97 09/15/16 05:44 - Medical History PMH: Anxiety, Asthma, Bipolar Disorder, Depression, Gastritis, Paranoia, Personality Disorder, Schizophrenia, Seizures, Chronic Pain (abd) Denies: Diabetes, Hepatitis, HIV, HTN, Sexually Transmitted Disease Surgical History: - [facility] Procedures APPLICATION OF SPLINT (04/09/14) CL FX REDUC-TIBIA/FIBULA (02/26/13) GROUP PSYCHOTHERAPY (07/30/16) INDIVID PSYCHOTHERAP NEC (12/17/13) INDIVIDUAL PSYCHOTHERAPY, BEHAVIORAL (01/29/16) INDIVIDUAL PSYCHOTHERAPY, COGNITIVE-BEHAVIORAL (07/30/16) INDIVIDUAL PSYCHOTHERAPY, SUPPORTIVE (07/22/16) MEDICATION MANAGEMENT (07/22/16) OTHER GROUP THERAPY (11/05/13) PSYCHIA INTERV/EVAL NEC (06/28/14) Family History: States: Unknown Family Hx - Social History Hx Tobacco Use: Yes (heavy smoker) Hx Alcohol Use: No Hx Substance Use: No - Immunization History Hx Tetanus Toxoid Vaccination: No Hx Influenza Vaccination: Yes (2016) Hx Pneumococcal Vaccination: Yes Review Of Systems Except As Marked, All Systems Reviewed And Found Negative. Constitutional: Positive for: Malaise. Negative for: Fever, Chills Gastrointestinal: Negative for: Nausea, Vomiting Psych: Positive for: Psychosis (Hearing voices). Negative for: Suicidal ideation, Other (Homicidal ideation) Physical Exam - Physical Exam Appears: Non-toxic, No Acute Distress, Other (Homeless) Skin: Warm, Dry Head: Atraumatic, Normacephalic Eye(s): bilateral: Normal Inspection Chest: Symmetrical Cardiovascular: Rhythm Regular, No Murmur Respiratory: Normal Breath Sounds, No Rales, No Rhonchi, No Wheezing Gastrointestinal/Abdominal: Soft, No Tenderness Neurological/Psych: Oriented x3, Normal Speech, Other (No focal deficit) ED Course And Treatment O2 Sat by Pulse Oximetry: 96 (RA) Pulse Ox Interpretation: Normal Medical Decision Making Medical Decision Making: Impression: 56 y/o male c/o hearing voices and not feeling well since today Plans: -Psych eval -Reassess Disposition Counseled Patient/Family Regarding: Diagnosis - Disposition Referrals: [facility] at [facility] [place] [Outside] Disposition: HOME/ ROUTINE Disposition Time: 05:46 Condition: STABLE Instructions: Hallucinations (ED) - POA Present On Arrival: None - Clinical Impression Clinical Impression: Homeless, Hallucinations - Scribe Statement The provider has reviewed the documentation as recorded by the Scribe Lakeisha bowden All medical record entries made by the Madhavibe were at my direction and personally dictated by me. I have reviewed the chart and agree that the record accurately reflects my personal performance of the history, physical exam, medical decision making, and the department course for this patient. I have also personally directed, reviewed, and agree with the discharge instructions and disposition.
[2016-09-15 05:45] VITALS: BP 110/73; PULSE 69; TEMP 97.8
[2016-09-15 05:47] VITALS: O2SAT 96
== END 2016-09-15 05:47 | disposition home or self-care (01) ==
LOC: C.ER 23:30
DX: R44.0 Auditory hallucinations (principal); Z59.0 Homelessness

== ENCOUNTER 2016-09-17 00:20 | Emergency (ER) | payer MEDICARE ==
[2016-09-17 00:20] VITALS: BMI 23.0
[2016-09-17 01:05] VITALS: PULSE 88; RESP 20
--- NOTE | 2016-09-17 03:53 | C.PDOC ---
History Of Present Illness Pt wants a place to sleep. No other complaints Time Seen by Provider: 09/17/16 03:50 Chief Complaint (Nursing): Medical Clearance History Per: Patient History/Exam Limitations: no limitations Onset/Duration Of Symptoms: Hrs Current Symptoms Are (Timing): Gone Severity: None Context: pt wants a place to sleep Past Medical History Reviewed: Historical Data, Nursing Documentation, Vital Signs Vital Signs: Last Vital Signs Temp 98.1 F 09/17/16 05:53 Pulse 88 09/17/16 05:53 Resp 20 09/17/16 05:53 BP 134/78 09/17/16 05:53 Pulse Ox 99 09/17/16 05:53 - Medical History PMH: Anxiety, Asthma, Bipolar Disorder, Depression, Gastritis, Paranoia, Personality Disorder, Schizophrenia, Seizures, Chronic Pain (abd) Denies: Diabetes, Hepatitis, HIV, HTN, Sexually Transmitted Disease Surgical History: - [facility] Procedures APPLICATION OF SPLINT (04/09/14) CL FX REDUC-TIBIA/FIBULA (02/26/13) GROUP PSYCHOTHERAPY (07/30/16) INDIVID PSYCHOTHERAP NEC (12/17/13) INDIVIDUAL PSYCHOTHERAPY, BEHAVIORAL (01/29/16) INDIVIDUAL PSYCHOTHERAPY, COGNITIVE-BEHAVIORAL (07/30/16) INDIVIDUAL PSYCHOTHERAPY, SUPPORTIVE (07/22/16) MEDICATION MANAGEMENT (07/22/16) OTHER GROUP THERAPY (11/05/13) PSYCHIA INTERV/EVAL NEC (06/28/14) Family History: States: Unknown Family Hx - Social History Hx Tobacco Use: Yes (heavy smoker) Hx Alcohol Use: No Hx Substance Use: No - Immunization History Hx Tetanus Toxoid Vaccination: No Hx Influenza Vaccination: Yes (2016) Hx Pneumococcal Vaccination: No Review Of Systems Constitutional: Negative for: Fever Cardiovascular: Negative for: Chest Pain Respiratory: Negative for: Shortness of Breath Gastrointestinal: Negative for: Nausea Musculoskeletal: Negative for: Back Pain Skin: Negative for: Rash Neurological: Negative for: Weakness Psych: Negative for: Anxiety Physical Exam - Physical Exam Appears: Non-toxic Skin: Warm, Dry Neck: Supple Chest: Symmetrical Cardiovascular: Rhythm Regular Respiratory: No Rhonchi Gastrointestinal/Abdominal: Soft Extremity: Normal ROM Extremity: Bilateral: Normal Color And Temperature Neurological/Psych: Oriented x3 Gait: Steady ED Course And Treatment O2 Sat by Pulse Oximetry: 98 Pulse Ox Interpretation: Normal Reevaluation Time: :13 Reassessment Condition: Improved Disposition Counseled Patient/Family Regarding: Studies Performed, Diagnosis, Need For Followup - Disposition Referrals: [facility] at [facility] [Outside] Disposition: HOME/ ROUTINE Disposition Time: 03:50 Condition: FAIR Instructions: Schizophrenia (ED) - Clinical Impression Clinical Impression: Schizophrenia
[2016-09-17 05:54] VITALS: BP 134/78; TEMP 98.1
[2016-09-17 06:13] VITALS: O2SAT 98
== END 2016-09-17 05:53 | disposition home or self-care (01) ==
LOC: C.ER 00:20
DX: F20.9 Schizophrenia, unspecified (principal)

== ENCOUNTER 2016-09-18 23:43 | Emergency (ER) | payer MEDICARE ==
[2016-09-18 23:43] VITALS: BMI 23.0
[2016-09-18 23:52] VITALS: PULSE 88
--- NOTE | 2016-09-19 02:36 | C.PDOC ---
History Of Present Illness A 56 y/o male c/o hearing voices and not feeling well today. Pt denies suicidal or homicidal ideation, or any physical complaints at this time. Pt notes being homeless. Time Seen by Provider: 09/18/16 23:46 Chief Complaint (Nursing): Medical Clearance History Per: Patient History/Exam Limitations: no limitations Onset/Duration Of Symptoms: Hrs Current Symptoms Are (Timing): Still Present Severity: Mild Reports Recently: Seen In ED Recent travel outside of the [place]: No Additional History Per: Patient Past Medical History Reviewed: Historical Data, Nursing Documentation, Vital Signs Vital Signs: Last Vital Signs Temp 98.2 F 09/19/16 05:46 Pulse 88 09/19/16 05:46 Resp 16 09/19/16 05:46 BP 124/76 09/19/16 05:46 Pulse Ox 99 09/19/16 05:46 - Medical History PMH: Anxiety, Asthma, Bipolar Disorder, Depression, Gastritis, Paranoia, Personality Disorder, Schizophrenia, Seizures, Chronic Pain (abd) Denies: Diabetes, Hepatitis, HIV, HTN, Sexually Transmitted Disease Surgical History: - [facility] Procedures APPLICATION OF SPLINT (04/09/14) CL FX REDUC-TIBIA/FIBULA (02/26/13) GROUP PSYCHOTHERAPY (07/30/16) INDIVID PSYCHOTHERAP NEC (12/17/13) INDIVIDUAL PSYCHOTHERAPY, BEHAVIORAL (01/29/16) INDIVIDUAL PSYCHOTHERAPY, COGNITIVE-BEHAVIORAL (07/30/16) INDIVIDUAL PSYCHOTHERAPY, SUPPORTIVE (07/22/16) MEDICATION MANAGEMENT (07/22/16) OTHER GROUP THERAPY (11/05/13) PSYCHIA INTERV/EVAL NEC (06/28/14) Family History: States: Unknown Family Hx - Social History Hx Tobacco Use: Yes (heavy smoker) Hx Alcohol Use: No Hx Substance Use: No - Immunization History Hx Tetanus Toxoid Vaccination: No Hx Influenza Vaccination: Yes (2017) Hx Pneumococcal Vaccination: No Review Of Systems Except As Marked, All Systems Reviewed And Found Negative. Constitutional: Positive for: Malaise. Negative for: Fever, Chills Gastrointestinal: Negative for: Nausea, Vomiting, Diarrhea Psych: Positive for: Psychosis. Negative for: Suicidal ideation, Other ( Homicidal ideation) Physical Exam - Physical Exam Appears: Non-toxic, No Acute Distress, Other (Homeless) Skin: Warm, Dry Head: Atraumatic, Normacephalic Eye(s): bilateral: Normal Inspection Chest: Symmetrical Cardiovascular: Rhythm Regular, No Murmur Respiratory: Normal Breath Sounds, No Accessory Muscle Use, No Rales, No Rhonchi , No Wheezing Gastrointestinal/Abdominal: Soft, No Tenderness Neurological/Psych: Oriented x3, Normal Speech, Other (No focal deficit) Gait: Steady ED Course And Treatment O2 Sat by Pulse Oximetry: 98 (RA) Pulse Ox Interpretation: Normal Medical Decision Making Medical Decision Making: Impression: 56 y/o male c/o hearing voices and not feeling well since today Plans: -Psych eval -Reassess Disposition - Disposition Referrals: Non [facility] Provider, [Primary Care Provider] - Disposition: HOME/ ROUTINE Disposition Time: 05:50 Condition: STABLE - Clinical Impression Clinical Impression: Psychiatric disorder, Auditory hallucination, Homeless - Scribe Statement The provider has reviewed the documentation as recorded by the Scribe Lakeisha bowden All medical record entries made by the Scribe were at my direction and personally dictated by me. I have reviewed the chart and agree that the record accurately reflects my personal performance of the history, physical exam, medical decision making, and the department course for this patient. I have also personally directed, reviewed, and agree with the discharge instructions and disposition.
[2016-09-19 05:47] VITALS: BP 124/76; RESP 16; TEMP 98.2
[2016-09-19 18:06] VITALS: O2SAT 98
== END 2016-09-19 05:47 | disposition home or self-care (01) ==
LOC: SUPCPDRO 23:43 → C.ER 23:43
DX: R44.0 Auditory hallucinations (principal); F20.9 Schizophrenia, unspecified; Z59.0 Homelessness

== ENCOUNTER 2016-09-19 23:15 | Emergency (ER) | payer MEDICARE ==
[2016-09-19 23:16] VITALS: BMI 23.0
[2016-09-19 23:42] VITALS: O2SAT 98
--- NOTE | 2016-09-20 01:29 | C.PDOC ---
History Of Present Illness Patient presents to the ER with a complaint of hearing voices. Patient has been seen in the ER multiple times in the past for the same complaint. Denies any physical complaints at this time. Chief Complaint (Nursing): Psychiatric Evaluation History Per: Patient History/Exam Limitations: no limitations Onset/Duration Of Symptoms: Days Current Symptoms Are (Timing): Still Present Suicide/Self Injury Attempted (Context): None Modifying Factor(s): None Associated Symptoms: Paranoia. denies: Depression, Suicidal Thoughts, Suicidal Plan Involuntary Hold By: None Recent travel outside of the [place]: No Past Medical History Reviewed: Historical Data, Nursing Documentation, Vital Signs Vital Signs: Last Vital Signs Temp 97.6 F 09/20/16 05:33 Pulse 66 09/20/16 05:33 Resp 20 09/20/16 05:33 BP 110/75 09/20/16 05:33 Pulse Ox 98 09/20/16 05:33 - Medical History PMH: Anxiety, Asthma, Bipolar Disorder, Depression, Gastritis, Paranoia, Personality Disorder, Schizophrenia, Seizures, Chronic Pain (abd) Surgical History: - [facility] Procedures APPLICATION OF SPLINT (04/09/14) CL FX REDUC-TIBIA/FIBULA (02/26/13) GROUP PSYCHOTHERAPY (07/30/16) INDIVID PSYCHOTHERAP NEC (12/17/13) INDIVIDUAL PSYCHOTHERAPY, BEHAVIORAL (01/29/16) INDIVIDUAL PSYCHOTHERAPY, COGNITIVE-BEHAVIORAL (07/30/16) INDIVIDUAL PSYCHOTHERAPY, SUPPORTIVE (07/22/16) MEDICATION MANAGEMENT (07/22/16) OTHER GROUP THERAPY (11/05/13) PSYCHIA INTERV/EVAL NEC (06/28/14) Family History: States: Unknown Family Hx - Social History Hx Tobacco Use: Yes (heavy smoker) Hx Alcohol Use: No Hx Substance Use: No - Immunization History Hx Tetanus Toxoid Vaccination: No Hx Influenza Vaccination: Yes (2017) Hx Pneumococcal Vaccination: No Review Of Systems Constitutional: Negative for: Fever, Chills Gastrointestinal: Negative for: Nausea, Vomiting, Diarrhea Psych: Positive for: Other (Hearing voices) Physical Exam - Physical Exam Appears: Non-toxic, No Acute Distress Skin: Normal Color, Warm, Dry Head: Atraumatic, Normacephalic Oral Mucosa: Moist Chest: Symmetrical, No Tenderness Cardiovascular: Rhythm Regular, No Murmur Respiratory: Normal Breath Sounds, No Rales, No Rhonchi, No Wheezing Gastrointestinal/Abdominal: Soft, No Tenderness Neurological/Psych: Oriented x3, Normal Speech, Normal Cognition ED Course And Treatment O2 Sat by Pulse Oximetry: 98 (Room air) Pulse Ox Interpretation: Normal Disposition - Disposition Referrals: [facility] [Outside] [facility] [Outside] Disposition: HOME/ ROUTINE Disposition Time: 00:00 Condition: GOOD Additional Instructions: Thank you for letting us take care of you today. The emergency medical care you received today was directed at your acute symptoms. If you were prescribed any medication, please fill it and take as directed. It may take several days for your symptoms to resolve. Return to the Emergency Department if your symptoms worsen, do not improve, or if you have any other problems. Please contact your doctor or call one of the physicians/clinics you have been referred to that are listed on the Patient Visit Information form that is included in your discharge packet. Bring any paperwork you were given at discharge with you along with any medications you are taking to your follow up visit. Our treatment cannot replace ongoing medical care by a primary care provider (PCP) outside of the emergency department. Thank you for allowing the [facility] team to be part of your care today. Followup in the clinic for outpatient care. - Clinical Impression Clinical Impression: Malingerer - Scribe Statement The provider has reviewed the documentation as recorded by the Scribalexis Gottlieb All medical record entries made by the Madhavibalexis were at my direction and personally dictated by me. I have reviewed the chart and agree that the record accurately reflects my personal performance of the history, physical exam, medical decision making, and the department course for this patient. I have also personally directed, reviewed, and agree with the discharge instructions and disposition.
[2016-09-20 05:35] VITALS: BP 110/75; PULSE 66; RESP 20; TEMP 97.6
== END 2016-09-20 05:35 | disposition home or self-care (01) ==
LOC: C.ER 23:15
DX: Z76.5 Malingerer [conscious simulation] (principal)

== ENCOUNTER 2016-09-23 00:41 | Emergency (ER) | payer MEDICARE ==
[2016-09-23 00:41] VITALS: BMI 23.0
--- NOTE | 2016-09-23 01:16 | C.PDOC ---
History Of Present Illness Patient presents to the ER looking for a place to spend the night. Denies any physical complaints at this time. Time Seen by Provider: 09/23/16 01:14 Chief Complaint (Nursing): Medical Clearance History Per: Patient History/Exam Limitations: no limitations Onset/Duration Of Symptoms: Hrs Current Symptoms Are (Timing): Still Present Recent travel outside of the [place]: No Past Medical History Reviewed: Historical Data, Nursing Documentation, Vital Signs Vital Signs: Last Vital Signs Temp 97.7 F 09/23/16 04:13 Pulse 85 09/23/16 04:13 Resp 16 09/23/16 04:13 BP 95/64 L 09/23/16 04:13 Pulse Ox 98 09/23/16 04:13 - Medical History PMH: Anxiety, Asthma, Bipolar Disorder, Depression, Gastritis, Paranoia, Personality Disorder, Schizophrenia, Seizures, Chronic Pain (abd) Surgical History: - [facility] Procedures APPLICATION OF SPLINT (04/09/14) CL FX REDUC-TIBIA/FIBULA (02/26/13) GROUP PSYCHOTHERAPY (07/30/16) INDIVID PSYCHOTHERAP NEC (12/17/13) INDIVIDUAL PSYCHOTHERAPY, BEHAVIORAL (01/29/16) INDIVIDUAL PSYCHOTHERAPY, COGNITIVE-BEHAVIORAL (07/30/16) INDIVIDUAL PSYCHOTHERAPY, SUPPORTIVE (07/22/16) MEDICATION MANAGEMENT (07/22/16) OTHER GROUP THERAPY (11/05/13) PSYCHIA INTERV/EVAL NEC (06/28/14) Family History: States: No Known Family Hx - Social History Hx Tobacco Use: Yes (heavy smoker) Hx Alcohol Use: No Hx Substance Use: No - Immunization History Hx Tetanus Toxoid Vaccination: No Hx Influenza Vaccination: Yes (2016) Hx Pneumococcal Vaccination: No Review Of Systems Constitutional: Negative for: Fever, Chills Gastrointestinal: Negative for: Nausea, Vomiting, Diarrhea Physical Exam - Physical Exam Appears: Non-toxic, No Acute Distress Skin: Warm, Dry Oral Mucosa: Moist Chest: Symmetrical, No Tenderness Cardiovascular: Rhythm Regular, No Murmur Respiratory: No Rales, No Rhonchi, No Wheezing Gastrointestinal/Abdominal: Soft, No Tenderness Neurological/Psych: Oriented x3 ED Course And Treatment O2 Sat by Pulse Oximetry: 99 (Room air) Pulse Ox Interpretation: Normal ED OBSERVATION Discharge: Yes Date of observation admission: 09/23/16 Time of observation admission: 01:17 Disposition Counseled Patient/Family Regarding: Studies Performed, Diagnosis, Need For Followup - Disposition Referrals: [facility] at [facility] [Outside] Disposition: HOME/ ROUTINE Disposition Time: 01:15 Condition: FAIR Instructions: Schizophrenia (ED) - Clinical Impression Clinical Impression: Schizophrenia - Scribe Statement The provider has reviewed the documentation as recorded by the Scribe Howard Gottlieb All medical record entries made by the Scribe were at my direction and personally dictated by me. I have reviewed the chart and agree that the record accurately reflects my personal performance of the history, physical exam, medical decision making, and the department course for this patient. I have also personally directed, reviewed, and agree with the discharge instructions and disposition.
[2016-09-23 04:14] VITALS: BP 95/64; PULSE 85; RESP 16; TEMP 97.7
[2016-09-23 05:59] VITALS: O2SAT 99
== END 2016-09-23 06:00 | disposition home or self-care (01) ==
LOC: C.ER 00:41
DX: F20.9 Schizophrenia, unspecified (principal); F17.210 Nicotine dependence, cigarettes, uncomplicated

== ENCOUNTER 2016-09-25 00:27 | Emergency (ER) | payer MEDICARE ==
[2016-09-25 00:28] VITALS: BMI 23.0
[2016-09-25] MEDS ORDERED: Sodium Chloride 0.9% 500 ML IV ONE ×2 (00:55→01:17)
[2016-09-25] MEDS ORDERED: Sodium Chloride 0.9% 1,000 ML IV ONE (00:55)
--- NOTE | 2016-09-25 00:56 | C.PDOC ---
History Of Present Illness 56 year old male presents to the ED with complaints of abdominal pain beginning today with episodes of diarrhea an vomiting. Patient notes history of chronic abdominal pain and auditory hallucinations but denies any suicidal ideations, fever, or headaches. Chief Complaint (Nursing): Abdominal Pain History Per: Patient History/Exam Limitations: no limitations Onset/Duration Of Symptoms: Hrs Current Symptoms Are (Timing): Still Present Location Of Pain/Discomfort: Diffuse Radiation Of Pain To:: None Quality Of Discomfort: "Pain" Associated Symptoms: Vomiting, Diarrhea. denies: Fever, Chills Recent travel outside of the [place]: No Past Medical History Reviewed: Historical Data, Nursing Documentation, Vital Signs Vital Signs: Last Vital Signs Temp 98 F 09/25/16 00:34 Pulse 76 09/25/16 00:34 Resp 14 09/25/16 00:34 BP 113/80 09/25/16 00:34 Pulse Ox 96 09/25/16 01:52 - Medical History PMH: Anxiety, Asthma, Bipolar Disorder, Depression, Gastritis, Paranoia, Personality Disorder, Schizophrenia, Seizures, Chronic Pain (abd) Surgical History: - [facility] Procedures APPLICATION OF SPLINT (04/09/14) CL FX REDUC-TIBIA/FIBULA (02/26/13) GROUP PSYCHOTHERAPY (07/30/16) INDIVID PSYCHOTHERAP NEC (12/17/13) INDIVIDUAL PSYCHOTHERAPY, BEHAVIORAL (01/29/16) INDIVIDUAL PSYCHOTHERAPY, COGNITIVE-BEHAVIORAL (07/30/16) INDIVIDUAL PSYCHOTHERAPY, SUPPORTIVE (07/22/16) MEDICATION MANAGEMENT (07/22/16) OTHER GROUP THERAPY (11/05/13) PSYCHIA INTERV/EVAL NEC (06/28/14) Family History: States: Unknown Family Hx - Social History Hx Tobacco Use: Yes (heavy smoker) Hx Alcohol Use: No Hx Substance Use: No - Immunization History Hx Tetanus Toxoid Vaccination: No Hx Influenza Vaccination: Yes (2017) Hx Pneumococcal Vaccination: No Review Of Systems Constitutional: Negative for: Fever, Chills, Sweats Cardiovascular: Negative for: Chest Pain, Palpitations Respiratory: Negative for: Cough, Shortness of Breath Gastrointestinal: Positive for: Vomiting, Abdominal Pain, Diarrhea Neurological: Negative for: Headache Physical Exam - Physical Exam Appears: Non-toxic, No Acute Distress Skin: Warm, Dry Head: Atraumatic Neck: Supple Respiratory: No Rales, No Rhonchi, No Stridor, No Wheezing Gastrointestinal/Abdominal: Soft, Tenderness (mild tenderness to mid-abdomen ), No Distention, No Guarding, No Rebound Extremity: Normal ROM, No Tenderness Neurological/Psych: Oriented x3 ED Course And Treatment - Laboratory Results Result Diagrams: 09/25/16 01:19 09/25/16 01:19 O2 Sat by Pulse Oximetry: 96 (room air ) Disposition Counseled Patient/Family Regarding: Diagnosis - Disposition Referrals: [facility] at [facility] [Outside] Disposition: HOME/ ROUTINE Disposition Time: 05:32 Condition: STABLE Instructions: Hallucinations (ED) - POA Present On Arrival: None - Clinical Impression Clinical Impression: Auditory hallucination, Homeless - Scribe Statement The provider has reviewed the documentation as recorded by the Scribalexis Ralph All medical record entries made by the Madhavibalexis were at my direction and personally dictated by me. I have reviewed the chart and agree that the record accurately reflects my personal performance of the history, physical exam, medical decision making, and the department course for this patient. I have also personally directed, reviewed, and agree with the discharge instructions and disposition.
[2016-09-25] MEDS ORDERED: Sodium Chloride 0.9% 1,000 ML ONE (01:17)
[2016-09-25 01:21] LABS: BASO # 0.1 K/uL (0.0-0.2); BASO % 1.2 % (0.0-2.0); EOS # 0.2 K/uL (0.0-0.7); EOS % 2.8 % (0.0-4.0); HEMATOCRIT 39.5 % (35.0-51.0); LYMPH # 1.9 K/uL (1.0-4.3); LYMPH % 33.6 % (20.0-40.0); MEAN CORPUSCULAR HEMOGLOBIN 30.4 pg (27.0-31.0); MEAN CORPUSCULAR HGB CONC 33.4 g/dL (33.0-37.0); MEAN PLATELET VOLUME 8.2 fL (7.2-11.7); MONO # 0.4 K/uL (0.0-0.8); MONO % 6.5 % (0.0-10.0); NRBC % 0.2 % (0.0-2.0); RED CELL DISTRIBUTION WIDTH 13.9 % (11.5-14.5); WHITE BLOOD COUNT 5.7 K/uL (4.8-10.8)
[2016-09-25 01:36] LABS: CHLORIDE 102 mmol/L (98-107); SODIUM 137 mmol/L (132-148)
[2016-09-25 01:37] LABS: POTASSIUM 3.4 mmol/L (3.6-5.2)
[2016-09-25 01:39] LABS: ALB/GLOB RATIO 1.4 (1.0-2.1); ALKALINE PHOSPHATASE 60 U/L (38-126); ALT/SGPT 16 U/L (21-72); AST/SGOT 22 U/L (17-59); BILIRUBIN,TOTAL 0.6 mg/dL (0.2-1.3); BLOOD UREA NITROGEN 15 mg/dL (9-20); CARBON DIOXIDE 26 mmol/L (22-30); GFR AFRICAN-AMERICAN > 60; GLUCOSE,RANDOM 115 mg/dL (75-110); TOTAL PROTEIN 6.3 g/dL (6.3-8.3)
[2016-09-25 01:40] LABS: CALCIUM 8.8 mg/dl (8.6-10.4)
[2016-09-25 02:30] LABS: URINE BILIRUBIN NEGATIVE (NEGATIVE); URINE BLOOD NEGATIVE (NEGATIVE); URINE COLOR Straw (YELLOW); URINE GLUCOSE (UA) NORMAL (Normal); URINE KETONE NEGATIVE (NEGATIVE); URINE LEUKOCYTE ESTERASE NEG Leu/uL (Negative); URINE PROTEIN NEGATIVE (NEGATIVE); URINE UROBILINOGEN NORMAL mg/dL (0.2-1.0); WBC URINE < 1 /hpf (0-5)
[2016-09-25 05:46] VITALS: BP 125/64; PULSE 64; RESP 20; TEMP 97.6; O2SAT 100
== END 2016-09-25 05:55 | disposition home or self-care (01) ==
LOC: C.ER 00:27
DX: R44.0 Auditory hallucinations (principal); R10.9 Unspecified abdominal pain; Z59.0 Homelessness
CPT/HCPCS: 80053; 81001; 83690; 85025; 96360; 99284; J7040

== ENCOUNTER 2016-09-25 23:17 | Emergency (ER) | payer MEDICARE ==
[2016-09-25 23:17] VITALS: BMI 23.0
[2016-09-25 23:39] VITALS: O2SAT 96
--- NOTE | 2016-09-26 00:53 | C.PDOC ---
History Of Present Illness 56 y/o male presents to ED requesting a place to stay for the night. Denies any medical complaints at this time. Pt well known to ER staff with multiple prior similar visits. Time Seen by Provider: 09/26/16 00:52 Chief Complaint (Nursing): Medical Clearance History Per: Patient History/Exam Limitations: no limitations Onset/Duration Of Symptoms: Persistent Current Symptoms Are (Timing): Still Present Pain Scale Rating Of: 0 Reports Recently: Seen In ED Recent travel outside of the [place]: No Past Medical History Reviewed: Historical Data, Nursing Documentation, Vital Signs Vital Signs: Last Vital Signs Temp 97.8 F 09/25/16 23:37 Pulse 79 09/25/16 23:37 Resp 16 09/25/16 23:37 BP 127/81 09/25/16 23:37 Pulse Ox 96 09/26/16 01:03 - Medical History PMH: Anxiety, Asthma, Bipolar Disorder, Depression, Gastritis, Paranoia, Personality Disorder, Schizophrenia, Seizures, Chronic Pain (abd) Surgical History: - [facility] Procedures APPLICATION OF SPLINT (04/09/14) CL FX REDUC-TIBIA/FIBULA (02/26/13) GROUP PSYCHOTHERAPY (07/30/16) INDIVID PSYCHOTHERAP NEC (12/17/13) INDIVIDUAL PSYCHOTHERAPY, BEHAVIORAL (01/29/16) INDIVIDUAL PSYCHOTHERAPY, COGNITIVE-BEHAVIORAL (07/30/16) INDIVIDUAL PSYCHOTHERAPY, SUPPORTIVE (07/22/16) MEDICATION MANAGEMENT (07/22/16) OTHER GROUP THERAPY (11/05/13) PSYCHIA INTERV/EVAL NEC (06/28/14) Family History: States: Unknown Family Hx - Social History Hx Tobacco Use: Yes (heavy smoker) Hx Alcohol Use: No Hx Substance Use: No - Immunization History Hx Tetanus Toxoid Vaccination: No Hx Influenza Vaccination: Yes (2017) Hx Pneumococcal Vaccination: No Review Of Systems Constitutional: Negative for: Fever Cardiovascular: Negative for: Chest Pain Respiratory: Negative for: Cough, Shortness of Breath Gastrointestinal: Negative for: Nausea, Vomiting, Abdominal Pain Skin: Negative for: Rash Physical Exam - Physical Exam Appears: Non-toxic, No Acute Distress Skin: Warm, Dry Head: Atraumatic Chest: Symmetrical Cardiovascular: Rhythm Regular Respiratory: No Rales, No Rhonchi, No Wheezing Gastrointestinal/Abdominal: Soft, No Tenderness Extremity: Normal ROM, Capillary Refill (< 2 sec.) Neurological/Psych: Oriented x3, Normal Speech, Normal Cognition ED Course And Treatment O2 Sat by Pulse Oximetry: 96 (RA) Pulse Ox Interpretation: Normal Progress Note: Plan to observe pt in ER. Reevaluation Time: 03:26 Reassessment Condition: Improved Disposition Counseled Patient/Family Regarding: Studies Performed, Diagnosis, Need For Followup - Disposition Referrals: [facility] at [facility] [Outside] Disposition: HOME/ ROUTINE Disposition Time: 00:52 Condition: FAIR Instructions: Schizophrenia (ED) - Clinical Impression Clinical Impression: Schizophrenia - Scribe Statement The provider has reviewed the documentation as recorded by the Leonard Valadez Provider Attestation: All medical record entries made by the Leonard were at my direction and personally dictated by me. I have reviewed the chart and agree that the record accurately reflects my personal performance of the history, physical exam, medical decision making, and the department course for this patient. I have also personally directed, reviewed, and agree with the discharge instructions and disposition.
[2016-09-26 03:29] VITALS: BP 122/68; PULSE 77; RESP 18; TEMP 98
== END 2016-09-26 03:09 | disposition home or self-care (01) ==
LOC: C.ER 23:17
DX: F20.9 Schizophrenia, unspecified (principal)

== ENCOUNTER 2016-09-29 01:26 | Emergency (ER) | payer MEDICARE ==
[2016-09-29 01:27] VITALS: BMI 23.0
[2016-09-29 01:44] VITALS: RESP 20
--- NOTE | 2016-09-29 03:50 | C.PDOC ---
History Of Present Illness 56 year old male presents to the ED with complaints of not feeling well for the past 2 days. Pt is well known in the ER with numerous visits. Pt denies any other complaints at this time. Time Seen by Provider: 09/29/16 01:51 Chief Complaint (Nursing): Medical Clearance History Per: Patient History/Exam Limitations: no limitations Onset/Duration Of Symptoms: Days Current Symptoms Are (Timing): Still Present Severity: Mild Reports Recently: Seen In ED Recent travel outside of the [place]: No Additional History Per: Patient Past Medical History Reviewed: Historical Data, Nursing Documentation, Vital Signs Vital Signs: Last Vital Signs Temp 98.2 F 09/29/16 04:01 Pulse 73 09/29/16 04:01 Resp 20 09/29/16 04:01 BP 111/67 09/29/16 04:01 Pulse Ox 98 09/29/16 04:01 - Medical History PMH: Anxiety, Asthma, Bipolar Disorder, Depression, Gastritis, Paranoia, Personality Disorder, Schizophrenia, Seizures, Chronic Pain (abd) Denies: HIV, HTN, Chronic Kidney Disease, Sexually Transmitted Disease Surgical History: - [facility] Procedures APPLICATION OF SPLINT (04/09/14) CL FX REDUC-TIBIA/FIBULA (02/26/13) GROUP PSYCHOTHERAPY (07/30/16) INDIVID PSYCHOTHERAP NEC (12/17/13) INDIVIDUAL PSYCHOTHERAPY, BEHAVIORAL (01/29/16) INDIVIDUAL PSYCHOTHERAPY, COGNITIVE-BEHAVIORAL (07/30/16) INDIVIDUAL PSYCHOTHERAPY, SUPPORTIVE (07/22/16) MEDICATION MANAGEMENT (07/22/16) OTHER GROUP THERAPY (11/05/13) PSYCHIA INTERV/EVAL NEC (06/28/14) Family History: States: Unknown Family Hx - Social History Hx Tobacco Use: Yes (heavy smoker) Hx Alcohol Use: No Hx Substance Use: No - Immunization History Hx Tetanus Toxoid Vaccination: No Hx Influenza Vaccination: Yes (2017) Hx Pneumococcal Vaccination: No Review Of Systems Except As Marked, All Systems Reviewed And Found Negative. Constitutional: Positive for: Malaise. Negative for: Fever, Chills ENT: Negative for: Ear Pain Cardiovascular: Negative for: Chest Pain Respiratory: Negative for: Cough, Shortness of Breath Gastrointestinal: Negative for: Nausea, Vomiting, Abdominal Pain, Diarrhea Physical Exam - Physical Exam Appears: Non-toxic, No Acute Distress Skin: Warm, Dry Head: Atraumatic, Normacephalic Eye(s): bilateral: Normal Inspection Oral Mucosa: Moist Throat: Normal, No Exudate Chest: Symmetrical Cardiovascular: Rhythm Regular Respiratory: Normal Breath Sounds, No Accessory Muscle Use, No Rales, No Rhonchi , No Wheezing Gastrointestinal/Abdominal: Soft, Tenderness Neurological/Psych: Oriented x3, Normal Speech, Normal Cognition, Normal Cranial Nerves, Other (No focal deficit) Gait: Steady ED Course And Treatment O2 Sat by Pulse Oximetry: 97 (RA) Pulse Ox Interpretation: Normal Medical Decision Making Medical Decision Making: Impression: 56 year old male presents to the ED with complaints of not feeling well for the past 2 days Plans: Admit to hospital, reassess Disposition - Disposition Referrals: [facility] at [facility] [Outside] Disposition: HOME/ ROUTINE Disposition Time: 05:30 Condition: STABLE - POA Present On Arrival: None - Clinical Impression Clinical Impression: Auditory hallucination, Homeless - Scribe Statement The provider has reviewed the documentation as recorded by the Scribe Lakeisha bowden All medical record entries made by the Madhavibalexis were at my direction and personally dictated by me. I have reviewed the chart and agree that the record accurately reflects my personal performance of the history, physical exam, medical decision making, and the department course for this patient. I have also personally directed, reviewed, and agree with the discharge instructions and disposition.
[2016-09-29 04:02] VITALS: BP 111/67; PULSE 73; TEMP 98.2
[2016-10-02 09:36] VITALS: O2SAT 97
== END 2016-09-29 06:07 | disposition home or self-care (01) ==
LOC: C.ER 01:26
DX: R44.0 Auditory hallucinations (principal); Z59.0 Homelessness

== ENCOUNTER 2016-10-01 01:04 | Emergency (ER) | payer MEDICARE ==
[2016-10-01 01:04] VITALS: BMI 23.0
[2016-10-01 01:26] VITALS: BP 109/72; PULSE 84; RESP 20; TEMP 97.7; O2SAT 100
== END 2016-10-01 01:24 | disposition left against medical advice (07) ==
LOC: C.ER 01:04
DX: M54.9 Dorsalgia, unspecified (principal); Z02.9 Encounter for administrative examinations, unspecified

== ENCOUNTER 2016-10-04 20:27 | Emergency (ER) | payer MEDICARE ==
[2016-10-04 10:10] VITALS: BMI 23.0
== END 2016-10-05 00:45 | disposition left against medical advice (07) ==
LOC: C.ER 20:27
DX: Z00.8 Encounter for other general examination (principal); Z02.9 Encounter for administrative examinations, unspecified

== ENCOUNTER 2016-10-06 20:49 | Emergency (ER) | payer MEDICARE ==
[2016-10-06 20:50] VITALS: BMI 23.0
[2016-10-06 21:10] VITALS: RESP 20; O2SAT 98
--- NOTE | 2016-10-06 21:44 | C.PDOC ---
History Of Present Illness 56 year old male presents to the ED requesting pain medications for chronic abdominal pain that has worsened today. Patient notes he is hearing voices, constipated, and 2 episodes of vomiting today. He denies any diarrhea, fever, or suicidal ideations. Chief Complaint (Nursing): Abdominal Pain History Per: Patient History/Exam Limitations: no limitations Onset/Duration Of Symptoms: Hrs Current Symptoms Are (Timing): Still Present Location Of Pain/Discomfort: Diffuse Radiation Of Pain To:: None Quality Of Discomfort: "Pain" Associated Symptoms: Vomiting, Constipation. denies: Fever, Chills, Diarrhea Recent travel outside of the [place]: No Additional History Per: Prior Records Past Medical History Reviewed: Historical Data, Nursing Documentation, Vital Signs Vital Signs: Last Vital Signs Temp 98 F 10/06/16 22:40 Pulse 90 10/06/16 22:40 Resp 20 10/06/16 22:40 BP 128/79 10/06/16 22:40 Pulse Ox 98 10/06/16 23:32 - Medical History PMH: Anxiety, Asthma, Bipolar Disorder, Depression, Gastritis, Paranoia, Personality Disorder, Schizophrenia, Seizures, Chronic Pain (abd) Denies: Sexually Transmitted Disease Surgical History: - [facility] Procedures APPLICATION OF SPLINT (04/09/14) CL FX REDUC-TIBIA/FIBULA (02/26/13) GROUP PSYCHOTHERAPY (07/30/16) INDIVID PSYCHOTHERAP NEC (12/17/13) INDIVIDUAL PSYCHOTHERAPY, BEHAVIORAL (01/29/16) INDIVIDUAL PSYCHOTHERAPY, COGNITIVE-BEHAVIORAL (07/30/16) INDIVIDUAL PSYCHOTHERAPY, SUPPORTIVE (07/22/16) MEDICATION MANAGEMENT (07/22/16) OTHER GROUP THERAPY (11/05/13) PSYCHIA INTERV/EVAL NEC (06/28/14) Family History: States: Unknown Family Hx - Social History Hx Tobacco Use: Yes (heavy smoker) Hx Alcohol Use: No Hx Substance Use: No - Immunization History Hx Tetanus Toxoid Vaccination: No Hx Influenza Vaccination: Yes (2017) Hx Pneumococcal Vaccination: No Review Of Systems Constitutional: Negative for: Fever, Chills Cardiovascular: Negative for: Chest Pain, Palpitations Respiratory: Negative for: Cough, Shortness of Breath Gastrointestinal: Positive for: Vomiting, Abdominal Pain, Constipation. Negative for: Diarrhea Psych: Negative for: Suicidal ideation Physical Exam - Physical Exam Appears: Non-toxic, No Acute Distress Skin: Warm, Dry Head: Atraumatic Eye(s): bilateral: Normal Inspection, PERRL, EOMI Oral Mucosa: Moist Neck: Supple Chest: Symmetrical, No Deformity Cardiovascular: Rhythm Regular Respiratory: Normal Breath Sounds, No Rales, No Rhonchi, No Wheezing Gastrointestinal/Abdominal: Soft, Tenderness (mild epigastric tenderness and suprapubic tenderness), No Distention, No Guarding, No Rebound Extremity: Normal ROM, No Tenderness Neurological/Psych: Oriented x3 Gait: Steady ED Course And Treatment O2 Sat by Pulse Oximetry: 98 Progress Note: Patient refused blood work and walked out of hospital. Disposition - Disposition Disposition: HOME/ ROUTINE Disposition Time: 23:00 Condition: UNKNOWN - Clinical Impression Clinical Impression: Abdominal pain - Scribe Statement The provider has reviewed the documentation as recorded by the Scribe Sujatha Ralph All medical record entries made by the Madhavibalexis were at my direction and personally dictated by me. I have reviewed the chart and agree that the record accurately reflects my personal performance of the history, physical exam, medical decision making, and the department course for this patient. I have also personally directed, reviewed, and agree with the discharge instructions and disposition.
[2016-10-06 22:40] VITALS: BP 128/79; PULSE 90; TEMP 98
== END 2016-10-06 22:45 | disposition home or self-care (01) ==
LOC: C.ER 20:49
DX: R10.9 Unspecified abdominal pain (principal); F17.210 Nicotine dependence, cigarettes, uncomplicated

== ENCOUNTER 2016-10-09 20:15 | Emergency (ER) | payer MEDICARE ==
[2016-10-09 20:15] VITALS: BMI 23.0
[2016-10-09 20:36] VITALS: BP 108/74; PULSE 87; RESP 16; TEMP 98.1; O2SAT 100
--- NOTE | 2016-10-09 21:52 | C.PDOC ---
History Of Present Illness 56 year old male who presents to the ER with a complaint of hearing voices. Patient is well known to the ER for requesting a place to spend the night. Denies SI, HI, or physical complaints at this time. Chief Complaint (Nursing): Psychiatric Evaluation History Per: Patient History/Exam Limitations: no limitations Onset/Duration Of Symptoms: Hrs Current Symptoms Are (Timing): Still Present Recent travel outside of the [place]: No Past Medical History Reviewed: Historical Data, Nursing Documentation, Vital Signs Vital Signs: Last Vital Signs Temp 98.1 F 10/09/16 20:34 Pulse 87 10/09/16 20:34 Resp 16 10/09/16 20:34 BP 108/74 10/09/16 20:34 Pulse Ox 100 10/09/16 22:34 - Medical History PMH: Anxiety, Asthma, Bipolar Disorder, Depression, Gastritis, Paranoia, Personality Disorder, Schizophrenia, Seizures, Chronic Pain (abd) Surgical History: - [facility] Procedures APPLICATION OF SPLINT (04/09/14) CL FX REDUC-TIBIA/FIBULA (02/26/13) GROUP PSYCHOTHERAPY (07/30/16) INDIVID PSYCHOTHERAP NEC (12/17/13) INDIVIDUAL PSYCHOTHERAPY, BEHAVIORAL (01/29/16) INDIVIDUAL PSYCHOTHERAPY, COGNITIVE-BEHAVIORAL (07/30/16) INDIVIDUAL PSYCHOTHERAPY, SUPPORTIVE (07/22/16) MEDICATION MANAGEMENT (07/22/16) OTHER GROUP THERAPY (11/05/13) PSYCHIA INTERV/EVAL NEC (06/28/14) Family History: States: Unknown Family Hx - Social History Hx Tobacco Use: Yes (heavy smoker) Hx Alcohol Use: No Hx Substance Use: No - Immunization History Hx Tetanus Toxoid Vaccination: No Hx Influenza Vaccination: Yes (2017) Hx Pneumococcal Vaccination: No Review Of Systems Constitutional: Negative for: Fever, Chills Gastrointestinal: Negative for: Nausea, Vomiting Psych: Negative for: Suicidal ideation Physical Exam - Physical Exam Appears: Non-toxic, No Acute Distress Skin: Normal Color, Warm, Dry Head: Atraumatic, Normacephalic Eye(s): bilateral: Normal Inspection, PERRL Oral Mucosa: Moist Cardiovascular: Rhythm Regular, No Murmur Respiratory: Normal Breath Sounds, No Rales, No Rhonchi, No Wheezing Neurological/Psych: Oriented x3, Normal Speech, Normal Cognition Gait: Steady ED Course And Treatment O2 Sat by Pulse Oximetry: 100 (Room air) Pulse Ox Interpretation: Normal Progress Note: Patient is resting comfortably, and is in no acute distress. Patient was instructed to follow up with PMD in 1-2 days for further evaluation. Disposition Counseled Patient/Family Regarding: Diagnosis, Need For Followup - Disposition Referrals: [facility] at [facility] [Outside] Disposition: HOME/ ROUTINE Disposition Time: 21:47 Condition: STABLE Additional Instructions: Please take your meds Follow up in clinic Return to ER if worse Forms: General Discharge Instructions - Clinical Impression Clinical Impression: Auditory hallucination, Malingering - Scribe Statement The provider has reviewed the documentation as recorded by the Scribe Howard Gottlieb All medical record entries made by the Scribe were at my direction and personally dictated by me. I have reviewed the chart and agree that the record accurately reflects my personal performance of the history, physical exam, medical decision making, and the department course for this patient. I have also personally directed, reviewed, and agree with the discharge instructions and disposition.
== END 2016-10-09 22:08 | disposition home or self-care (01) ==
LOC: C.ER 20:15
DX: R44.0 Auditory hallucinations (principal); Z76.5 Malingerer [conscious simulation]

== ENCOUNTER 2016-10-13 21:04 | Observation (INO) | payer MEDICARE ==
[2016-10-13 21:05] VITALS: BMI 23.0
[2016-10-13 21:57] VITALS: RESP 16
--- NOTE | 2016-10-14 00:29 | C.PDOC ---
History Of Present Illness The patient presents to the ED requesting a place to stay for the night. Patient denies suicidal/homicidal ideation and has no physical complaints at this time. Time Seen by Provider: 10/14/16 00:26 Chief Complaint (Nursing): Medical Clearance History Per: Patient History/Exam Limitations: no limitations Onset/Duration Of Symptoms: Hrs Current Symptoms Are (Timing): Still Present Severity: Mild Pain Scale Rating Of: 1 Recent travel outside of the [place]: No Additional History Per: Patient Past Medical History Reviewed: Historical Data, Nursing Documentation, Vital Signs Vital Signs: Last Vital Signs Temp 97.6 F 10/13/16 21:54 Pulse 93 H 10/13/16 21:54 Resp 16 10/13/16 21:54 BP 119/83 10/13/16 21:54 Pulse Ox 100 10/14/16 03:11 - Medical History PMH: Anxiety, Asthma, Bipolar Disorder, Depression, Gastritis, Paranoia, Personality Disorder, Schizophrenia, Seizures, Chronic Pain (abd) Surgical History: No Surg Hx - [facility] Procedures APPLICATION OF SPLINT (04/09/14) CL FX REDUC-TIBIA/FIBULA (02/26/13) GROUP PSYCHOTHERAPY (07/30/16) INDIVID PSYCHOTHERAP NEC (12/17/13) INDIVIDUAL PSYCHOTHERAPY, BEHAVIORAL (01/29/16) INDIVIDUAL PSYCHOTHERAPY, COGNITIVE-BEHAVIORAL (07/30/16) INDIVIDUAL PSYCHOTHERAPY, SUPPORTIVE (07/22/16) MEDICATION MANAGEMENT (07/22/16) OTHER GROUP THERAPY (11/05/13) PSYCHIA INTERV/EVAL NEC (06/28/14) Family History: States: Unknown Family Hx - Social History Hx Tobacco Use: Yes (heavy smoker) Hx Alcohol Use: No Hx Substance Use: No - Immunization History Hx Tetanus Toxoid Vaccination: No Hx Influenza Vaccination: Yes (2016) Hx Pneumococcal Vaccination: No Review Of Systems Constitutional: Positive for: Other (+request for place to stay overnight). Negative for: Fever, Chills Cardiovascular: Negative for: Chest Pain, Palpitations Respiratory: Negative for: Cough, Shortness of Breath Gastrointestinal: Negative for: Nausea, Vomiting, Abdominal Pain Skin: Negative for: Rash, Lesions, Jaundice, Bruising Neurological: Negative for: Weakness, Numbness Psych: Negative for: Suicidal ideation Physical Exam - Physical Exam Appears: Non-toxic, No Acute Distress Skin: Warm, Dry Head: Normacephalic Eye(s): bilateral: Normal Inspection Oral Mucosa: Moist Neck: Supple Chest: Symmetrical, No Deformity, No Tenderness Cardiovascular: Rhythm Regular, No Murmur Respiratory: No Rales, No Rhonchi, No Wheezing Extremity: Normal ROM, Capillary Refill (less than 2 seconds ) Neurological/Psych: Oriented x3 Gait: Steady ED Course And Treatment O2 Sat by Pulse Oximetry: 100 (on RA) Pulse Ox Interpretation: Normal Reevaluation Time: 05:14 Reassessment Condition: Improved ED OBSERVATION Discharge: Yes Date of observation admission: 10/14/16 Time of observation admission: 00:28 - Observation admission statement Patient is being placed in observation because:: homeless, schizophrenia - Goals of Observation Goals of observation are:: social service - Progress Note Progress Note: 10/14/16 00:29 vitals stable 10/14/16 03:11 no complaints Disposition Counseled Patient/Family Regarding: Studies Performed, Diagnosis, Need For Followup - Disposition Disposition: HOME/ ROUTINE Disposition Time: 00:27 Condition: FAIR - Clinical Impression Clinical Impression: Schizophrenia, chronic condition - Scribe Statement The provider has reviewed the documentation as recorded by the Scribe (Rosi Chow) Provider Attestation: All medical record entries made by the Scribe were at my direction and personally dictated by me. I have reviewed the chart and agree that the record accurately reflects my personal performance of the history, physical exam, medical decision making, and the department course for this patient. I have also personally directed, reviewed, and agree with the discharge instructions and disposition.
[2016-10-14 05:45] VITALS: BP 110/64; PULSE 80; TEMP 97.9; O2SAT 98
== END 2016-10-14 05:15 | disposition home or self-care (01) ==
LOC: C.ER 21:04 → C.9OBSV 10-14 00:27
PROVIDERS: ADMIT Emergency Medicine; ATTEND Emergency Medicine
DX: F20.9 Schizophrenia, unspecified (principal); F31.9 Bipolar disorder, unspecified; J45.909 Unspecified asthma, uncomplicated; Z87.891 Personal history of nicotine dependence; Z59.0 Homelessness

== ENCOUNTER 2016-10-17 13:14 | Emergency (ER) | payer MEDICARE ==
[2016-10-17 13:15] VITALS: BMI 23.0
[2016-10-17 13:21] VITALS: BP 117/78; PULSE 93; RESP 18; TEMP 97.9; O2SAT 98
--- NOTE | 2016-10-17 13:41 | C.PDOC ---
History Of Present Illness 56 y/o male presents to ED for various complaints. Patient reports he is hearing voices, c/o abdominal pain, and requests a sandwich. Well known to ER with multiple similar visits in the past. Denies any trauma or other acute complaints. Time Seen by Provider: 10/17/16 13:35 Chief Complaint (Nursing): Abdominal Pain History Per: Patient History/Exam Limitations: no limitations Onset/Duration Of Symptoms: Days Current Symptoms Are (Timing): Still Present Reports Recently: Seen In ED Recent travel outside of the [place]: No Past Medical History Reviewed: Historical Data, Nursing Documentation, Vital Signs Vital Signs: Last Vital Signs Temp 97.9 F 10/17/16 13:20 Pulse 93 H 10/17/16 13:20 Resp 18 10/17/16 13:20 BP 117/78 10/17/16 13:20 Pulse Ox 98 10/17/16 13:41 - Medical History PMH: Anxiety, Asthma, Bipolar Disorder, Depression, Gastritis, Paranoia, Personality Disorder, Schizophrenia, Seizures, Chronic Pain (abd) Surgical History: - [facility] Procedures APPLICATION OF SPLINT (04/09/14) CL FX REDUC-TIBIA/FIBULA (02/26/13) GROUP PSYCHOTHERAPY (07/30/16) INDIVID PSYCHOTHERAP NEC (12/17/13) INDIVIDUAL PSYCHOTHERAPY, BEHAVIORAL (01/29/16) INDIVIDUAL PSYCHOTHERAPY, COGNITIVE-BEHAVIORAL (07/30/16) INDIVIDUAL PSYCHOTHERAPY, SUPPORTIVE (07/22/16) MEDICATION MANAGEMENT (07/22/16) OTHER GROUP THERAPY (11/05/13) PSYCHIA INTERV/EVAL NEC (06/28/14) Family History: States: Unknown Family Hx - Social History Hx Tobacco Use: Yes (heavy smoker) Hx Alcohol Use: No Hx Substance Use: No - Immunization History Hx Tetanus Toxoid Vaccination: No Hx Influenza Vaccination: Yes (2016) Hx Pneumococcal Vaccination: No Review Of Systems Except As Marked, All Systems Reviewed And Found Negative. Constitutional: Negative for: Fever, Chills Respiratory: Negative for: Cough, Shortness of Breath, Wheezing Gastrointestinal: Positive for: Abdominal Pain. Negative for: Nausea, Vomiting , Diarrhea Skin: Negative for: Rash Neurological: Negative for: Headache, Dizziness Physical Exam - Physical Exam Appears: Non-toxic, No Acute Distress Skin: Warm, Dry Head: Atraumatic, Normacephalic Chest: Symmetrical Cardiovascular: Rhythm Regular Respiratory: Normal Breath Sounds, No Rales, No Rhonchi, No Wheezing Gastrointestinal/Abdominal: Soft, No Tenderness, No Guarding, No Rebound Back: Normal Inspection Extremity: Normal ROM, Capillary Refill (< 2 sec.) Neurological/Psych: Oriented x3, Normal Speech, Normal Cognition ED Course And Treatment O2 Sat by Pulse Oximetry: 98 (RA) Pulse Ox Interpretation: Normal Medical Decision Making Medical Decision Making: malingering typical c/o vague abd discomfort and hearing voices, baseline for this schizophrenic baseline c/w many prior evals Disposition Doctor Will See Patient In The: Office Counseled Patient/Family Regarding: Studies Performed, Diagnosis - Disposition Referrals: [facility] [Outside] [facility] [Outside] Disposition: HOME/ ROUTINE Disposition Time: 13:41 Condition: GOOD Forms: General Discharge Instructions - Clinical Impression Clinical Impression: Schizophrenia, Homeless - Scribe Statement The provider has reviewed the documentation as recorded by the Leonard Valadez Provider Attestation: All medical record entries made by the Leonard were at my direction and personally dictated by me. I have reviewed the chart and agree that the record accurately reflects my personal performance of the history, physical exam, medical decision making, and the department course for this patient. I have also personally directed, reviewed, and agree with the discharge instructions and disposition.
== END 2016-10-17 14:00 | disposition home or self-care (01) ==
LOC: C.ER 13:14
DX: F20.9 Schizophrenia, unspecified (principal); Z59.0 Homelessness

== ENCOUNTER 2016-10-17 21:50 | Emergency (ER) | payer MEDICARE ==
[2016-10-17 21:51] VITALS: BMI 23.0
--- NOTE | 2016-10-17 22:23 | C.PDOC ---
History Of Present Illness A 56 y/o M comes in to the ER wanting a sandwich and places to stay. Pt was seen here earlier today by myself and was discharge. Pt went to [facility] and was seen and evaluated today. Pt now returns to the ER with no physical complaints at this time. Time Seen by Provider: 10/17/16 22:00 Chief Complaint (Nursing): Psychiatric Evaluation History Per: Patient History/Exam Limitations: no limitations Suicide/Self Injury Attempted (Context): None Modifying Factor(s): None Severity: None Involuntary Hold By: None Recent travel outside of the [place]: No Additional History Per: Patient Past Medical History Reviewed: Historical Data, Nursing Documentation, Vital Signs Vital Signs: Last Vital Signs Temp 98 F 10/17/16 22:32 Pulse 69 10/17/16 22:32 Resp 18 10/17/16 22:32 BP 120/82 10/17/16 22:32 Pulse Ox 99 10/17/16 22:32 - Medical History PMH: Anxiety, Asthma, Bipolar Disorder, Depression, Gastritis, Paranoia, Personality Disorder, Schizophrenia, Seizures, Chronic Pain (abd) Denies: HIV, HTN, Chronic Kidney Disease, Sexually Transmitted Disease Surgical History: - [facility] Procedures APPLICATION OF SPLINT (04/09/14) CL FX REDUC-TIBIA/FIBULA (02/26/13) GROUP PSYCHOTHERAPY (07/30/16) INDIVID PSYCHOTHERAP NEC (12/17/13) INDIVIDUAL PSYCHOTHERAPY, BEHAVIORAL (01/29/16) INDIVIDUAL PSYCHOTHERAPY, COGNITIVE-BEHAVIORAL (07/30/16) INDIVIDUAL PSYCHOTHERAPY, SUPPORTIVE (07/22/16) MEDICATION MANAGEMENT (07/22/16) OTHER GROUP THERAPY (11/05/13) PSYCHIA INTERV/EVAL NEC (06/28/14) Family History: States: Unknown Family Hx - Social History Hx Tobacco Use: Yes (heavy smoker) Hx Alcohol Use: No Hx Substance Use: No - Immunization History Hx Tetanus Toxoid Vaccination: No Hx Influenza Vaccination: Yes (2016) Hx Pneumococcal Vaccination: No Review Of Systems Except As Marked, All Systems Reviewed And Found Negative. Constitutional: Negative for: Fever, Chills Cardiovascular: Negative for: Chest Pain Respiratory: Negative for: Shortness of Breath Gastrointestinal: Negative for: Nausea, Vomiting, Abdominal Pain, Diarrhea Physical Exam - Physical Exam Appears: Non-toxic, No Acute Distress, Other (Normal cooperative, calm, has a place to stay) Skin: Warm, Dry Head: Atraumatic, Normacephalic Neurological/Psych: Oriented x3, Normal Speech, Normal Cognition Gait: Steady ED Course And Treatment O2 Sat by Pulse Oximetry: 100 (RA) Pulse Ox Interpretation: Normal Medical Decision Making Medical Decision Making: Impression: A 56 y/o M comes in to the ER wanting a sandwich and places to stay. had sandwich and a soda, agreed he may not stay in ED without acute medical issue pt seen in [facility] between today's two visits. Disposition Doctor Will See Patient In The: Office Counseled Patient/Family Regarding: Studies Performed, Diagnosis - Disposition Referrals: [facility] [Outside] [facility] [Outside] Disposition: HOME/ ROUTINE Disposition Time: 22:23 Condition: GOOD Instructions: Schizophrenia (ED) - Clinical Impression Clinical Impression: Homeless single person, Schizophrenia, chronic condition, Schizophrenia, acute - Scribe Statement The provider has reviewed the documentation as recorded by the Scribe Lakeisha bowden All medical record entries made by the Scribe were at my direction and personally dictated by me. I have reviewed the chart and agree that the record accurately reflects my personal performance of the history, physical exam, medical decision making, and the department course for this patient. I have also personally directed, reviewed, and agree with the discharge instructions and disposition.
[2016-10-18 12:14] VITALS: BP 120/82; PULSE 69; RESP 18; TEMP 98; O2SAT 100
== END 2016-10-17 22:32 | disposition home or self-care (01) ==
LOC: C.ER 21:50
DX: F20.9 Schizophrenia, unspecified (principal); Z59.0 Homelessness

== ENCOUNTER 2016-10-18 23:16 | Emergency (ER) | payer MEDICARE ==
[2016-10-18 23:17] VITALS: BMI 23.0
[2016-10-18 23:22] VITALS: BP 125/80; PULSE 70; RESP 16; TEMP 98.2; O2SAT 99
--- NOTE | 2016-10-18 23:36 | C.PDOC ---
History Of Present Illness 56 year old male who presents to the ER with a complaint of hearing voices. Patient is a well known local homeless schizophrenic; he had multiple evaluations done yesterday and in [facility]. Denies any physical complaints at this time. Time Seen by Provider: 10/18/16 23:35 Chief Complaint (Nursing): Psychiatric Evaluation History Per: Patient History/Exam Limitations: no limitations Onset/Duration Of Symptoms: Hrs Current Symptoms Are (Timing): Still Present Suicide/Self Injury Attempted (Context): None Modifying Factor(s): None Severity: None Associated Symptoms: Paranoia. denies: Depression, Suicidal Thoughts, Suicidal Plan Involuntary Hold By: None Recent travel outside of the [place]: No Past Medical History Reviewed: Historical Data, Nursing Documentation, Vital Signs Vital Signs: Last Vital Signs Temp 98.2 F 10/18/16 23:20 Pulse 70 10/18/16 23:20 Resp 16 10/18/16 23:20 BP 125/80 10/18/16 23:20 Pulse Ox 99 10/19/16 00:11 - Medical History PMH: Anxiety, Asthma, Bipolar Disorder, Depression, Gastritis, Paranoia, Personality Disorder, Schizophrenia, Seizures, Chronic Pain (abd) Surgical History: No Surg Hx - [facility] Procedures APPLICATION OF SPLINT (04/09/14) CL FX REDUC-TIBIA/FIBULA (02/26/13) GROUP PSYCHOTHERAPY (07/30/16) INDIVID PSYCHOTHERAP NEC (12/17/13) INDIVIDUAL PSYCHOTHERAPY, BEHAVIORAL (01/29/16) INDIVIDUAL PSYCHOTHERAPY, COGNITIVE-BEHAVIORAL (07/30/16) INDIVIDUAL PSYCHOTHERAPY, SUPPORTIVE (07/22/16) MEDICATION MANAGEMENT (07/22/16) OTHER GROUP THERAPY (11/05/13) PSYCHIA INTERV/EVAL NEC (06/28/14) Family History: States: Unknown Family Hx - Social History Hx Tobacco Use: Yes (heavy smoker) Hx Alcohol Use: No Hx Substance Use: No - Immunization History Hx Tetanus Toxoid Vaccination: No Hx Influenza Vaccination: Yes (2016) Hx Pneumococcal Vaccination: No Review Of Systems Constitutional: Negative for: Fever, Chills Gastrointestinal: Negative for: Nausea, Vomiting, Diarrhea Physical Exam - Physical Exam Appears: Non-toxic, No Acute Distress Skin: Normal Color, Warm, Dry Head: Atraumatic, Normacephalic Oral Mucosa: Moist Chest: Symmetrical, No Tenderness Cardiovascular: Rhythm Regular, No Murmur Respiratory: Normal Breath Sounds, No Rales, No Rhonchi, No Wheezing Gastrointestinal/Abdominal: Soft, No Tenderness Neurological/Psych: Oriented x3, Normal Speech, Normal Cognition ED Course And Treatment O2 Sat by Pulse Oximetry: 99 (Room air) Pulse Ox Interpretation: Normal Medical Decision Making Medical Decision Making: baseline, no new issues, safe for d/c. Disposition Doctor Will See Patient In The: Office Counseled Patient/Family Regarding: Studies Performed, Diagnosis - Disposition Referrals: [facility] [Outside] [facility] [Outside] Disposition: HOME/ ROUTINE Disposition Time: 23:36 Condition: GOOD Additional Instructions: seek regular nightly longterm placement. Instructions: Schizophrenia (ED) - Clinical Impression Clinical Impression: Schizophrenia, Homeless - Scribe Statement The provider has reviewed the documentation as recorded by the Scribalexis Gottlieb All medical record entries made by the Scribe were at my direction and personally dictated by me. I have reviewed the chart and agree that the record accurately reflects my personal performance of the history, physical exam, medical decision making, and the department course for this patient. I have also personally directed, reviewed, and agree with the discharge instructions and disposition.
== END 2016-10-18 23:50 | disposition home or self-care (01) ==
LOC: C.ER 23:16
DX: F20.9 Schizophrenia, unspecified (principal); Z59.0 Homelessness

== ENCOUNTER 2016-10-19 22:22 | Emergency (ER) | payer MEDICARE ==
[2016-10-19 22:23] VITALS: BMI 23.0
== END 2016-10-19 23:06 | disposition left against medical advice (07) ==
LOC: C.ER 22:22
DX: F19.10 Other psychoactive substance abuse, uncomplicated (principal); Z02.9 Encounter for administrative examinations, unspecified

== ENCOUNTER 2016-10-20 23:47 | Emergency (ER) | payer MEDICARE ==
[2016-10-20 23:48] VITALS: BMI 23.0
[2016-10-20 23:54] VITALS: O2SAT 98
--- NOTE | 2016-10-21 | C.PDOC ---
History Of Present Illness 56 year old male who presents to the ER with a complaint of hearing voices and a sore throat. Denies cough, fever, or other complaints. Chief Complaint (Nursing): Medical Clearance History Per: Patient History/Exam Limitations: no limitations Onset/Duration Of Symptoms: Hrs Current Symptoms Are (Timing): Still Present Recent travel outside of the [place]: No Past Medical History Reviewed: Historical Data, Nursing Documentation, Vital Signs Vital Signs: Last Vital Signs Temp 98.9 F 10/20/16 23:52 Pulse 80 10/20/16 23:52 Resp 16 10/20/16 23:52 BP 117/83 10/20/16 23:52 Pulse Ox 98 10/21/16 00:32 - Medical History PMH: Anxiety, Asthma, Bipolar Disorder, Depression, Gastritis, Paranoia, Personality Disorder, Schizophrenia, Seizures, Chronic Pain (abd) Surgical History: No Surg Hx - [facility] Procedures APPLICATION OF SPLINT (04/09/14) CL FX REDUC-TIBIA/FIBULA (02/26/13) GROUP PSYCHOTHERAPY (07/30/16) INDIVID PSYCHOTHERAP NEC (12/17/13) INDIVIDUAL PSYCHOTHERAPY, BEHAVIORAL (01/29/16) INDIVIDUAL PSYCHOTHERAPY, COGNITIVE-BEHAVIORAL (07/30/16) INDIVIDUAL PSYCHOTHERAPY, SUPPORTIVE (07/22/16) MEDICATION MANAGEMENT (07/22/16) OTHER GROUP THERAPY (11/05/13) PSYCHIA INTERV/EVAL NEC (06/28/14) Family History: States: Unknown Family Hx - Social History Hx Tobacco Use: Yes (heavy smoker) Hx Alcohol Use: No Hx Substance Use: No - Immunization History Hx Tetanus Toxoid Vaccination: No Hx Influenza Vaccination: Yes (2016) Hx Pneumococcal Vaccination: No Review Of Systems Constitutional: Negative for: Fever, Chills ENT: Positive for: Throat Pain Gastrointestinal: Negative for: Nausea, Vomiting, Diarrhea Physical Exam - Physical Exam Appears: Non-toxic, No Acute Distress Skin: Normal Color, Warm, Dry Head: Atraumatic, Normacephalic Oral Mucosa: Moist Throat: Normal, No Erythema, No Exudate Chest: Symmetrical, No Tenderness Cardiovascular: Rhythm Regular, No Murmur Respiratory: Normal Breath Sounds, No Rales, No Rhonchi, No Wheezing Gastrointestinal/Abdominal: Soft, No Tenderness Neurological/Psych: Oriented x3, Normal Speech, Normal Cognition ED Course And Treatment O2 Sat by Pulse Oximetry: 98 (Room air) Pulse Ox Interpretation: Normal ED OBSERVATION Date of observation admission: 10/21/16 Time of observation admission: 00:15 - Observation admission statement Patient is being placed in observation because:: Homelessness - Goals of Observation Goals of observation are:: Social service Disposition Counseled Patient/Family Regarding: Diagnosis - Disposition Referrals: [facility] [Outside] Disposition: HOME/ ROUTINE Disposition Time: 05:30 Condition: STABLE Instructions: Hallucinations (ED) - POA Present On Arrival: None - Clinical Impression Clinical Impression: Hallucinations, Homeless - Scribe Statement The provider has reviewed the documentation as recorded by the Scribe Howard Gottlieb All medical record entries made by the Madhavibalexis were at my direction and personally dictated by me. I have reviewed the chart and agree that the record accurately reflects my personal performance of the history, physical exam, medical decision making, and the department course for this patient. I have also personally directed, reviewed, and agree with the discharge instructions and disposition.
[2016-10-21 05:30] VITALS: BP 123/77; PULSE 77; RESP 17; TEMP 98.1
== END 2016-10-21 05:31 | disposition home or self-care (01) ==
LOC: C.ER 23:47
DX: R44.0 Auditory hallucinations (principal); Z59.0 Homelessness

== ENCOUNTER 2016-10-23 20:40 | Observation (INO) | payer MEDICARE ==
[2016-10-23 20:40] VITALS: BMI 23.0
[2016-10-23 20:49] VITALS: O2SAT 96
--- NOTE | 2016-10-23 21:23 | C.PDOC ---
History Of Present Illness 56 y/o male with History of frequent visits to ED presents to ED with complaints of abdominal pain and hearing voices. Patient states he is looking for a place to sleep and denies fever, chills,n/v/d, suicidal ideation or any other complaints at this time. Time Seen by Provider: 10/23/16 21:22 Chief Complaint (Nursing): Psychiatric Evaluation History Per: Patient History/Exam Limitations: no limitations Onset/Duration Of Symptoms: Hrs Current Symptoms Are (Timing): Still Present Past Medical History Reviewed: Historical Data, Nursing Documentation, Vital Signs Vital Signs: Last Vital Signs Temp 98.0 F 10/24/16 01:01 Pulse 87 10/24/16 01:01 Resp 18 10/24/16 01:01 BP 121/67 10/24/16 01:01 Pulse Ox 96 10/24/16 01:09 - Medical History PMH: Anxiety, Asthma, Bipolar Disorder, Depression, Gastritis, Paranoia, Personality Disorder, Schizophrenia, Seizures, Chronic Pain (abd) Surgical History: - [facility] Procedures APPLICATION OF SPLINT (04/09/14) CL FX REDUC-TIBIA/FIBULA (02/26/13) GROUP PSYCHOTHERAPY (07/30/16) INDIVID PSYCHOTHERAP NEC (12/17/13) INDIVIDUAL PSYCHOTHERAPY, BEHAVIORAL (01/29/16) INDIVIDUAL PSYCHOTHERAPY, COGNITIVE-BEHAVIORAL (07/30/16) INDIVIDUAL PSYCHOTHERAPY, SUPPORTIVE (07/22/16) MEDICATION MANAGEMENT (07/22/16) OTHER GROUP THERAPY (11/05/13) PSYCHIA INTERV/EVAL NEC (06/28/14) Family History: States: Unknown Family Hx - Social History Hx Tobacco Use: Yes (heavy smoker) Hx Alcohol Use: No Hx Substance Use: No - Immunization History Hx Tetanus Toxoid Vaccination: No Hx Influenza Vaccination: Yes (2016) Hx Pneumococcal Vaccination: No Review Of Systems Constitutional: Negative for: Fever, Chills Gastrointestinal: Positive for: Abdominal Pain. Negative for: Nausea, Vomiting , Diarrhea Psych: Negative for: Suicidal ideation Physical Exam - Physical Exam Appears: Non-toxic, No Acute Distress Skin: Warm Head: Normacephalic Oral Mucosa: Moist Cardiovascular: No Murmur Respiratory: No Rales, No Rhonchi, No Wheezing Neurological/Psych: Oriented x3 ED Course And Treatment O2 Sat by Pulse Oximetry: 96 (RA) Pulse Ox Interpretation: Normal Reevaluation Time: 04:00 Reassessment Condition: Improved ED OBSERVATION Discharge: Yes Date of observation admission: 10/23/16 Time of observation admission: 21:29 - Observation admission statement Patient is being placed in observation because:: Homeless, Schizophrenia - Goals of Observation Goals of observation are:: social service - Progress Note Progress Note: 10/23/16 21:30 Vital stable 10/24/16 01:09 no complaints Disposition - Disposition Disposition: HOME/ ROUTINE Disposition Time: 04:01 Condition: FAIR - Clinical Impression Clinical Impression: Schizophrenia - Scribe Statement The provider has reviewed the documentation as recorded by the Madhavibalexis Puente All medical record entries made by the Leonard were at my direction and personally dictated by me. I have reviewed the chart and agree that the record accurately reflects my personal performance of the history, physical exam, medical decision making, and the department course for this patient. I have also personally directed, reviewed, and agree with the discharge instructions and disposition. Observation Dispo - Observation Dispo Admitting Diagnosis/Reason for Visit: ABDOMINAL PAIN Discharge Diagnosis: Schizophrenia
--- NOTE | 2016-10-23 21:42 | C.PDOC ---
Time Seen by Provider: 10/23/16 21:22 Chief Complaint (Nursing): Psychiatric Evaluation Past Medical History Vital Signs: Last Vital Signs Temp 98.6 F 10/23/16 20:46 Pulse 93 H 10/23/16 20:46 Resp 20 10/23/16 20:46 BP 118/78 10/23/16 20:46 Pulse Ox 96 10/23/16 20:46 - Medical History PMH: Anxiety, Asthma, Bipolar Disorder, Depression, Gastritis, Paranoia, Personality Disorder, Schizophrenia, Seizures, Chronic Pain (abd) Denies: HIV, HTN, Chronic Kidney Disease, Sexually Transmitted Disease Surgical History: - [facility] Procedures APPLICATION OF SPLINT (04/09/14) CL FX REDUC-TIBIA/FIBULA (02/26/13) GROUP PSYCHOTHERAPY (07/30/16) INDIVID PSYCHOTHERAP NEC (12/17/13) INDIVIDUAL PSYCHOTHERAPY, BEHAVIORAL (01/29/16) INDIVIDUAL PSYCHOTHERAPY, COGNITIVE-BEHAVIORAL (07/30/16) INDIVIDUAL PSYCHOTHERAPY, SUPPORTIVE (07/22/16) MEDICATION MANAGEMENT (07/22/16) OTHER GROUP THERAPY (11/05/13) PSYCHIA INTERV/EVAL NEC (06/28/14) Family History: States: Unknown Family Hx - Social History Hx Tobacco Use: Yes (heavy smoker) Hx Alcohol Use: No Hx Substance Use: No - Immunization History Hx Tetanus Toxoid Vaccination: No Hx Influenza Vaccination: Yes (2016) Hx Pneumococcal Vaccination: No ED Course And Treatment O2 Sat by Pulse Oximetry: 96 Disposition Counseled Patient/Family Regarding: Studies Performed, Diagnosis, Need For Followup - Disposition Referrals: [facility] [Outside] Disposition Time: 21:42 Condition: FAIR Instructions: Schizophrenia (ED) - Clinical Impression Clinical Impression: Schizophrenia
[2016-10-24 01:14] VITALS: RESP 18
[2016-10-24 04:22] VITALS: BP 119/71; PULSE 89; TEMP 98.1
== END 2016-10-24 04:01 | disposition home or self-care (01) ==
LOC: C.ER 20:40 → C.9OBSV 21:38
PROVIDERS: ADMIT Emergency Medicine; ATTEND Emergency Medicine
DX: F20.9 Schizophrenia, unspecified (principal); F31.9 Bipolar disorder, unspecified; J45.909 Unspecified asthma, uncomplicated; Z87.891 Personal history of nicotine dependence
CPT/HCPCS: 99284; G0378

== ENCOUNTER 2016-10-27 22:18 | Observation (INO) | payer MEDICARE ==
[2016-10-27 22:18] VITALS: BMI 23.0
--- NOTE | 2016-10-27 23:09 | C.PDOC ---
History Of Present Illness Patient presents to the ER requesting a place to spend the night. Denies any physical complaints at this time. Time Seen by Provider: 10/27/16 23:08 Chief Complaint (Nursing): Medical Clearance History Per: Patient History/Exam Limitations: no limitations Onset/Duration Of Symptoms: Hrs Current Symptoms Are (Timing): Still Present Severity: None Pain Scale Rating Of: 0 Recent travel outside of the [place]: No Past Medical History Reviewed: Historical Data, Nursing Documentation, Vital Signs Vital Signs: Last Vital Signs Temp 98 F 10/28/16 02:03 Pulse 75 10/28/16 02:03 Resp 16 10/28/16 02:03 BP 104/69 10/28/16 02:03 Pulse Ox 99 10/28/16 02:03 - Medical History PMH: Anxiety, Asthma, Bipolar Disorder, Depression, Gastritis, Paranoia, Personality Disorder, Schizophrenia, Seizures, Chronic Pain (abd) Surgical History: No Surg Hx - [facility] Procedures APPLICATION OF SPLINT (04/09/14) CL FX REDUC-TIBIA/FIBULA (02/26/13) GROUP PSYCHOTHERAPY (07/30/16) INDIVID PSYCHOTHERAP NEC (12/17/13) INDIVIDUAL PSYCHOTHERAPY, BEHAVIORAL (01/29/16) INDIVIDUAL PSYCHOTHERAPY, COGNITIVE-BEHAVIORAL (07/30/16) INDIVIDUAL PSYCHOTHERAPY, SUPPORTIVE (07/22/16) MEDICATION MANAGEMENT (07/22/16) OTHER GROUP THERAPY (11/05/13) PSYCHIA INTERV/EVAL NEC (06/28/14) Family History: States: Unknown Family Hx - Social History Hx Tobacco Use: Yes (heavy smoker) Hx Alcohol Use: No Hx Substance Use: No - Immunization History Hx Tetanus Toxoid Vaccination: No Hx Influenza Vaccination: Yes (2016) Hx Pneumococcal Vaccination: No Review Of Systems Constitutional: Negative for: Fever, Chills Gastrointestinal: Negative for: Nausea, Vomiting, Diarrhea Physical Exam - Physical Exam Appears: Non-toxic Skin: Warm, Dry Oral Mucosa: Moist Chest: Symmetrical, No Tenderness Cardiovascular: Rhythm Regular, No Murmur Respiratory: No Rales, No Rhonchi, No Wheezing Gastrointestinal/Abdominal: Soft, No Tenderness Neurological/Psych: Oriented x3 ED Course And Treatment O2 Sat by Pulse Oximetry: 99 (Room air) Pulse Ox Interpretation: Normal Reevaluation Time: 04:59 Reassessment Condition: Improved ED OBSERVATION Discharge: Yes Date of observation admission: 10/27/16 Time of observation admission: 23:10 - Observation admission statement Patient is being placed in observation because:: homeless, schizophrenia - Goals of Observation Goals of observation are:: renal social worker - Progress Note Progress Note: 10/27/16 23:11 vitals stable 10/28/16 03:59 no complaints Disposition Counseled Patient/Family Regarding: Studies Performed, Diagnosis, Need For Followup - Disposition Disposition: HOME/ ROUTINE Disposition Time: 23:09 Condition: FAIR - Clinical Impression Clinical Impression: Schizophrenia - Scribe Statement The provider has reviewed the documentation as recorded by the Scribe Howard Gottlieb All medical record entries made by the Madhavibalexis were at my direction and personally dictated by me. I have reviewed the chart and agree that the record accurately reflects my personal performance of the history, physical exam, medical decision making, and the department course for this patient. I have also personally directed, reviewed, and agree with the discharge instructions and disposition.
[2016-10-28 05:51] VITALS: BP 108/63; PULSE 72; RESP 18; TEMP 97.9; O2SAT 98
== END 2016-10-28 05:00 | disposition home or self-care (01) ==
LOC: C.ER 22:18 → SUPCPDRO 22:18 → C.9OBSV 23:09
PROVIDERS: ADMIT Emergency Medicine; ATTEND Emergency Medicine
DX: F20.9 Schizophrenia, unspecified (principal); F60.9 Personality disorder, unspecified; J45.909 Unspecified asthma, uncomplicated; Z87.891 Personal history of nicotine dependence; Z59.0 Homelessness
CPT/HCPCS: 99281; G0378

== ENCOUNTER 2016-10-29 00:03 | Observation (INO) | payer MEDICARE ==
[2016-10-29 00:03] VITALS: BMI 23.0
[2016-10-29 00:13] VITALS: BP 123/80; PULSE 81; RESP 20; TEMP 97.6; O2SAT 99
--- NOTE | 2016-10-29 00:31 | C.PDOC ---
History Of Present Illness Patient presents to the ER requesting a place to spend the night. Denies any physical complaints at this time. Time Seen by Provider: 10/29/16 00:29 Chief Complaint (Nursing): Psychiatric Evaluation History Per: Patient History/Exam Limitations: no limitations Suicide/Self Injury Attempted (Context): None Modifying Factor(s): None Severity: None Pain Scale Rating Of: 0 Involuntary Hold By: None Recent travel outside of the [place]: No Additional History Per: Patient Past Medical History Reviewed: Historical Data, Nursing Documentation, Vital Signs Vital Signs: Last Vital Signs Temp 97.6 F 10/29/16 00:09 Pulse 81 10/29/16 00:09 Resp 20 10/29/16 00:09 BP 123/80 10/29/16 00:09 Pulse Ox 99 10/29/16 00:37 - Medical History PMH: Anxiety, Asthma, Bipolar Disorder, Depression, Gastritis, Paranoia, Personality Disorder, Schizophrenia, Seizures, Chronic Pain (abd) Denies: HIV, HTN, Chronic Kidney Disease, Sexually Transmitted Disease Surgical History: - [facility] Procedures APPLICATION OF SPLINT (04/09/14) CL FX REDUC-TIBIA/FIBULA (02/26/13) GROUP PSYCHOTHERAPY (07/30/16) INDIVID PSYCHOTHERAP NEC (12/17/13) INDIVIDUAL PSYCHOTHERAPY, BEHAVIORAL (01/29/16) INDIVIDUAL PSYCHOTHERAPY, COGNITIVE-BEHAVIORAL (07/30/16) INDIVIDUAL PSYCHOTHERAPY, SUPPORTIVE (07/22/16) MEDICATION MANAGEMENT (07/22/16) OTHER GROUP THERAPY (11/05/13) PSYCHIA INTERV/EVAL NEC (06/28/14) Family History: States: Unknown Family Hx - Social History Hx Tobacco Use: Yes (heavy smoker) Hx Alcohol Use: No Hx Substance Use: No - Immunization History Hx Tetanus Toxoid Vaccination: No Hx Influenza Vaccination: Yes (2016) Hx Pneumococcal Vaccination: No Review Of Systems Constitutional: Negative for: Fever, Chills Cardiovascular: Negative for: Chest Pain Respiratory: Negative for: Shortness of Breath Gastrointestinal: Negative for: Nausea, Vomiting, Abdominal Pain, Diarrhea Skin: Negative for: Rash Neurological: Negative for: Headache Physical Exam - Physical Exam Appears: Non-toxic, No Acute Distress Skin: Warm, Dry Head: Normacephalic Oral Mucosa: Moist Neck: Supple Chest: No Tenderness Cardiovascular: Rhythm Regular Respiratory: No Rales, No Rhonchi, No Wheezing Gastrointestinal/Abdominal: Soft, No Tenderness Neurological/Psych: Oriented x3 (Awake and alert) Gait: Steady ED Course And Treatment O2 Sat by Pulse Oximetry: 99 (RA) Pulse Ox Interpretation: Normal Reevaluation Time: 05:06 Reassessment Condition: Improved ED OBSERVATION Discharge: Yes Date of observation admission: 10/29/16 Time of observation admission: 00:31 - Observation admission statement Patient is being placed in observation because:: schizophrenia - Progress Note Progress Note: 10/29/16 00:31 vitals stable 10/29/16 04:06 vitals stable Disposition Counseled Patient/Family Regarding: Studies Performed, Diagnosis, Need For Followup - Disposition Disposition: HOME/ ROUTINE Disposition Time: 00:30 Condition: FAIR - Clinical Impression Clinical Impression: Schizophrenia - Scribe Statement The provider has reviewed the documentation as recorded by the Madhavibalexis bowden All medical record entries made by the Madhavibalexis were at my direction and personally dictated by me. I have reviewed the chart and agree that the record accurately reflects my personal performance of the history, physical exam, medical decision making, and the department course for this patient. I have also personally directed, reviewed, and agree with the discharge instructions and disposition.
== END 2016-10-29 05:07 | disposition home or self-care (01) ==
LOC: C.ER 00:03 → C.9OBSV 00:31
PROVIDERS: ADMIT Emergency Medicine; ATTEND Emergency Medicine
DX: F20.9 Schizophrenia, unspecified (principal); F17.219 Nicotine dependence, cigarettes, with unspecified nicotine-induced disorders; Z59.0 Homelessness
CPT/HCPCS: 99282; G0378

== ENCOUNTER 2016-10-29 20:50 | Observation (INO) | payer MEDICARE ==
[2016-10-29 20:50] VITALS: BMI 23.0
[2016-10-29 20:59] VITALS: BP 118/85; PULSE 93; RESP 16; TEMP 98.2; O2SAT 98
[2016-10-29] MEDS ORDERED: Alum-Mag Hydrox-Simethicone Susp (30 mL) PO STA (21:04)
--- NOTE | 2016-10-29 21:12 | C.PDOC ---
History Of Present Illness A 56 y/o M c/o chronic abdominal pain and hearing voices for a while now. Pt has numerous prior visits in the ER for the same complaints. Denies nausea, vomiting, diarrhea, headache, dizziness, or any other complaints. Time Seen by Provider: 10/29/16 21:10 Chief Complaint (Nursing): Abdominal Pain History Per: Patient History/Exam Limitations: no limitations Onset/Duration Of Symptoms: Days Current Symptoms Are (Timing): Still Present Severity: Mild Quality Of Discomfort: "Pain" Associated Symptoms: denies: Nausea, Vomiting, Diarrhea Exacerbating Factors: None Alleviating Factors: None Recent travel outside of the [place]: No Additional History Per: Patient Past Medical History Reviewed: Historical Data, Nursing Documentation, Vital Signs Vital Signs: Last Vital Signs Temp 98.2 F 10/29/16 20:55 Pulse 93 H 10/29/16 20:55 Resp 16 10/29/16 20:55 BP 118/85 10/29/16 20:55 Pulse Ox 98 10/29/16 21:18 - Medical History PMH: Anxiety, Asthma, Bipolar Disorder, Depression, Gastritis, Paranoia, Personality Disorder, Schizophrenia, Seizures, Chronic Pain (abd) Denies: HIV, HTN, Chronic Kidney Disease, Sexually Transmitted Disease Surgical History: - [facility] Procedures APPLICATION OF SPLINT (04/09/14) CL FX REDUC-TIBIA/FIBULA (02/26/13) GROUP PSYCHOTHERAPY (07/30/16) INDIVID PSYCHOTHERAP NEC (12/17/13) INDIVIDUAL PSYCHOTHERAPY, BEHAVIORAL (01/29/16) INDIVIDUAL PSYCHOTHERAPY, COGNITIVE-BEHAVIORAL (07/30/16) INDIVIDUAL PSYCHOTHERAPY, SUPPORTIVE (07/22/16) MEDICATION MANAGEMENT (07/22/16) OTHER GROUP THERAPY (11/05/13) PSYCHIA INTERV/EVAL NEC (06/28/14) Family History: States: Unknown Family Hx - Social History Hx Tobacco Use: Yes (heavy smoker) Hx Alcohol Use: No Hx Substance Use: No - Immunization History Hx Tetanus Toxoid Vaccination: No Hx Influenza Vaccination: Yes (2016) Hx Pneumococcal Vaccination: Yes Review Of Systems Except As Marked, All Systems Reviewed And Found Negative. Gastrointestinal: Positive for: Abdominal Pain. Negative for: Nausea, Vomiting , Diarrhea Neurological: Negative for: Headache, Dizziness Psych: Positive for: Psychosis (Hearing voices) Physical Exam - Physical Exam Appears: Non-toxic, No Acute Distress Skin: Warm, Dry Head: Atraumatic, Normacephalic Cardiovascular: Rhythm Regular Respiratory: Normal Breath Sounds, No Rales, No Rhonchi, No Wheezing Gastrointestinal/Abdominal: Soft, No Tenderness Neurological/Psych: Oriented x3, Normal Speech, Other (No focal deficit) Gait: Steady ED Course And Treatment O2 Sat by Pulse Oximetry: 98 (RA) Pulse Ox Interpretation: Normal Medical Decision Making Medical Decision Making: Impression: A 56 y/o M c/o chrinic abdominal pain and hearing voices for a while now. Pt has numerous prior visits in the ER for the same complaints. Plans: -Maalox -Reassess ED OBSERVATION Date of observation admission: 10/29/16 Time of observation admission: 21:13 - Observation admission statement Patient is being placed in observation because:: Hearing voices and pain - Goals of Observation Goals of observation are:: director social welfare Disposition Counseled Patient/Family Regarding: Diagnosis - Disposition Disposition: HOME/ ROUTINE Disposition Time: 00:34 Condition: STABLE - POA Present On Arrival: None - Clinical Impression Clinical Impression: Auditory hallucination, Homeless - Scribe Statement The provider has reviewed the documentation as recorded by the Madhavibe Lakeisha bowden All medical record entries made by the Leonard were at my direction and personally dictated by me. I have reviewed the chart and agree that the record accurately reflects my personal performance of the history, physical exam, medical decision making, and the department course for this patient. I have also personally directed, reviewed, and agree with the discharge instructions and disposition.
[2016-10-29] MEDS ORDERED: Aluminum Hydroxide/Magnesium Hydroxide Susp (30 mL) ONE (21:22)
== END 2016-10-30 00:32 | disposition home or self-care (01) ==
LOC: C.ER 20:50 → C.9OBSV 21:05
PROVIDERS: ADMIT Emergency Medicine; ATTEND Emergency Medicine
DX: R44.0 Auditory hallucinations (principal); Z59.0 Homelessness; Z87.891 Personal history of nicotine dependence; G89.29 Other chronic pain; R10.9 Unspecified abdominal pain

== ENCOUNTER 2016-11-02 00:25 | Observation (INO) | payer MEDICARE ==
[2016-11-02 00:25] VITALS: BMI 23.0
[2016-11-02 00:38] VITALS: RESP 20; TEMP 98.8
--- NOTE | 2016-11-02 00:52 | C.PDOC ---
History Of Present Illness Patient presents to the ER requesting a place to stay the night. Denies physical complaints at this time. Time Seen by Provider: 11/02/16 00:50 Chief Complaint (Nursing): Anxiety History Per: Patient History/Exam Limitations: no limitations Onset/Duration Of Symptoms: Hrs Current Symptoms Are (Timing): Still Present Suicide/Self Injury Attempted (Context): None Modifying Factor(s): None Associated Symptoms: denies: Depression, Suicidal Thoughts, Suicidal Plan Involuntary Hold By: None Recent travel outside of the [place]: No Past Medical History Reviewed: Historical Data, Nursing Documentation, Vital Signs Vital Signs: Last Vital Signs Temp 98.8 F 11/02/16 00:34 Pulse 86 11/02/16 00:34 Resp 20 11/02/16 00:34 BP 115/77 11/02/16 00:34 Pulse Ox 97 11/02/16 02:13 - Medical History PMH: Anxiety, Asthma, Bipolar Disorder, Depression, Gastritis, Paranoia, Personality Disorder, Schizophrenia, Seizures, Chronic Pain (abd) Surgical History: - [facility] Procedures APPLICATION OF SPLINT (04/09/14) CL FX REDUC-TIBIA/FIBULA (02/26/13) GROUP PSYCHOTHERAPY (07/30/16) INDIVID PSYCHOTHERAP NEC (12/17/13) INDIVIDUAL PSYCHOTHERAPY, BEHAVIORAL (01/29/16) INDIVIDUAL PSYCHOTHERAPY, COGNITIVE-BEHAVIORAL (07/30/16) INDIVIDUAL PSYCHOTHERAPY, SUPPORTIVE (07/22/16) MEDICATION MANAGEMENT (07/22/16) OTHER GROUP THERAPY (11/05/13) PSYCHIA INTERV/EVAL NEC (06/28/14) Family History: States: Unknown Family Hx - Social History Hx Tobacco Use: Yes (heavy smoker) Hx Alcohol Use: No Hx Substance Use: No - Immunization History Hx Tetanus Toxoid Vaccination: No Hx Influenza Vaccination: Yes (2017) Hx Pneumococcal Vaccination: No Review Of Systems Constitutional: Negative for: Fever, Chills Gastrointestinal: Negative for: Nausea, Vomiting, Diarrhea Physical Exam - Physical Exam Appears: Non-toxic Skin: Warm, Dry Oral Mucosa: Moist Chest: Symmetrical, No Tenderness Cardiovascular: Rhythm Regular, No Murmur Respiratory: No Rales, No Rhonchi, No Wheezing Gastrointestinal/Abdominal: Soft, No Tenderness Neurological/Psych: Oriented x3 ED Course And Treatment O2 Sat by Pulse Oximetry: 97 (Room air) Pulse Ox Interpretation: Normal Reevaluation Time: 05:28 Reassessment Condition: Improved ED OBSERVATION Discharge: Yes Date of observation admission: 11/02/16 Time of observation admission: 00:51 - Observation admission statement Patient is being placed in observation because:: homeless, schizophrenia - Goals of Observation Goals of observation are:: social service - Progress Note Progress Note: 11/02/16 00:51 vitals stable 11/02/16 02:28 arousable Disposition Counseled Patient/Family Regarding: Studies Performed, Diagnosis, Need For Followup - Disposition Disposition: HOME/ ROUTINE Disposition Time: 00:50 Condition: FAIR - Clinical Impression Clinical Impression: Schizophrenia - Scribe Statement The provider has reviewed the documentation as recorded by the Scribe Howard Gottlieb All medical record entries made by the Leonrad were at my direction and personally dictated by me. I have reviewed the chart and agree that the record accurately reflects my personal performance of the history, physical exam, medical decision making, and the department course for this patient. I have also personally directed, reviewed, and agree with the discharge instructions and disposition.
[2016-11-02 06:32] VITALS: BP 140/89; PULSE 91; O2SAT 100
== END 2016-11-02 05:28 | disposition home or self-care (01) ==
LOC: C.ER 00:25 → C.9OBSV 00:42
PROVIDERS: ADMIT Internal Medicine Nephrology; ATTEND Emergency Medicine
DX: F20.9 Schizophrenia, unspecified (principal); F22 Delusional disorders; F41.9 Anxiety disorder, unspecified; Z87.891 Personal history of nicotine dependence; Z59.0 Homelessness
CPT/HCPCS: 99283; G0378

== ENCOUNTER 2016-11-04 00:12 | Emergency (ER) | payer MEDICARE ==
[2016-11-04 00:13] VITALS: BMI 23.0
[2016-11-04 00:33] VITALS: TEMP 98.2
--- NOTE | 2016-11-04 01:14 | C.PDOC ---
History Of Present Illness 56 year old male who presents to the ER looking for a place to stay the night. Denies physical complaints at this time. Time Seen by Provider: 11/04/16 01:10 Chief Complaint (Nursing): Medical Clearance History Per: Patient History/Exam Limitations: no limitations Onset/Duration Of Symptoms: Hrs Current Symptoms Are (Timing): Still Present Recent travel outside of the [place]: No Past Medical History Reviewed: Historical Data, Nursing Documentation, Vital Signs Vital Signs: Last Vital Signs Temp 98.2 F 11/04/16 00:30 Pulse 75 11/04/16 05:40 Resp 18 11/04/16 05:40 BP 103/67 11/04/16 04:40 Pulse Ox 98 11/04/16 05:40 - Medical History PMH: Anxiety, Asthma, Bipolar Disorder, Depression, Gastritis, Paranoia, Personality Disorder, Schizophrenia, Seizures, Chronic Pain (abd) Surgical History: - [facility] Procedures APPLICATION OF SPLINT (04/09/14) CL FX REDUC-TIBIA/FIBULA (02/26/13) GROUP PSYCHOTHERAPY (07/30/16) INDIVID PSYCHOTHERAP NEC (12/17/13) INDIVIDUAL PSYCHOTHERAPY, BEHAVIORAL (01/29/16) INDIVIDUAL PSYCHOTHERAPY, COGNITIVE-BEHAVIORAL (07/30/16) INDIVIDUAL PSYCHOTHERAPY, SUPPORTIVE (07/22/16) MEDICATION MANAGEMENT (07/22/16) OTHER GROUP THERAPY (11/05/13) PSYCHIA INTERV/EVAL NEC (06/28/14) Family History: States: Unknown Family Hx - Social History Hx Tobacco Use: Yes (heavy smoker) Hx Alcohol Use: No Hx Substance Use: No - Immunization History Hx Tetanus Toxoid Vaccination: No Hx Influenza Vaccination: Yes (2016) Hx Pneumococcal Vaccination: No Review Of Systems Constitutional: Negative for: Fever, Chills Gastrointestinal: Negative for: Nausea, Vomiting, Diarrhea Physical Exam - Physical Exam Appears: Non-toxic Skin: Normal Color, Warm, Dry Head: Atraumatic, Normacephalic Oral Mucosa: Moist Chest: Symmetrical, No Tenderness Cardiovascular: Rhythm Regular, No Murmur Respiratory: Normal Breath Sounds, No Rales, No Rhonchi, No Wheezing Gastrointestinal/Abdominal: Soft, No Tenderness Neurological/Psych: Oriented x3, Normal Speech, Normal Cognition ED Course And Treatment O2 Sat by Pulse Oximetry: 97 (Room air) Pulse Ox Interpretation: Normal Disposition - Disposition Disposition: ELOPEMENT - ER ONLY Disposition Time: 05:00 Condition: FAIR Forms: [facility] (Lithuanian) - Clinical Impression Clinical Impression: Smelly feet - Scribe Statement The provider has reviewed the documentation as recorded by the Scribe Howard Gottlieb All medical record entries made by the Madhavibe were at my direction and personally dictated by me. I have reviewed the chart and agree that the record accurately reflects my personal performance of the history, physical exam, medical decision making, and the department course for this patient. I have also personally directed, reviewed, and agree with the discharge instructions and disposition.
[2016-11-04 04:41] VITALS: BP 103/67
[2016-11-04 05:56] VITALS: PULSE 75; RESP 18
[2016-11-04 06:55] VITALS: O2SAT 97
== END 2016-11-04 05:44 | disposition left against medical advice (07) ==
LOC: C.ER 00:12
DX: R23.8 Other skin changes (principal)

== ENCOUNTER 2016-11-04 23:23 | Emergency (ER) | payer MEDICARE ==
[2016-11-04 23:24] VITALS: BMI 23.0
[2016-11-05 00:11] VITALS: BP 114/75; PULSE 81; RESP 20; TEMP 97.6; O2SAT 98
--- NOTE | 2016-11-05 03:17 | C.PDOC ---
History Of Present Illness 56 year old male who presents to the ER requesting a place to stay the night. Denies physical complaints at this time. Chief Complaint (Nursing): Medical Clearance History Per: Patient History/Exam Limitations: no limitations Onset/Duration Of Symptoms: Hrs Current Symptoms Are (Timing): Still Present Recent travel outside of the [place]: No Past Medical History Reviewed: Historical Data, Nursing Documentation, Vital Signs Vital Signs: Last Vital Signs Temp 97.6 F 11/05/16 00:06 Pulse 81 11/05/16 00:06 Resp 20 11/05/16 00:06 BP 114/75 11/05/16 00:06 Pulse Ox 98 11/05/16 05:48 - Medical History PMH: Anxiety, Asthma, Bipolar Disorder, Depression, Gastritis, Paranoia, Personality Disorder, Schizophrenia, Seizures, Chronic Pain (abd) Surgical History: No Surg Hx - [facility] Procedures APPLICATION OF SPLINT (04/09/14) CL FX REDUC-TIBIA/FIBULA (02/26/13) GROUP PSYCHOTHERAPY (07/30/16) INDIVID PSYCHOTHERAP NEC (12/17/13) INDIVIDUAL PSYCHOTHERAPY, BEHAVIORAL (01/29/16) INDIVIDUAL PSYCHOTHERAPY, COGNITIVE-BEHAVIORAL (07/30/16) INDIVIDUAL PSYCHOTHERAPY, SUPPORTIVE (07/22/16) MEDICATION MANAGEMENT (07/22/16) OTHER GROUP THERAPY (11/05/13) PSYCHIA INTERV/EVAL NEC (06/28/14) Family History: States: Unknown Family Hx - Social History Hx Tobacco Use: Yes (heavy smoker) Hx Alcohol Use: No Hx Substance Use: No - Immunization History Hx Tetanus Toxoid Vaccination: No Hx Influenza Vaccination: Yes (2016) Hx Pneumococcal Vaccination: No Review Of Systems Constitutional: Negative for: Fever, Chills Gastrointestinal: Negative for: Nausea, Vomiting, Diarrhea Physical Exam - Physical Exam Appears: Non-toxic, No Acute Distress Skin: Normal Color, Warm, Dry Head: Atraumatic, Normacephalic Oral Mucosa: Moist Chest: Symmetrical, No Tenderness Cardiovascular: Rhythm Regular, No Murmur Respiratory: Normal Breath Sounds, No Rales, No Rhonchi, No Wheezing Gastrointestinal/Abdominal: Soft, No Tenderness Neurological/Psych: Oriented x3, Normal Speech, Normal Cognition ED Course And Treatment O2 Sat by Pulse Oximetry: 98 (Room air) Pulse Ox Interpretation: Normal ED OBSERVATION Date of observation admission: 11/05/16 Time of observation admission: 00:04 - Observation admission statement Patient is being placed in observation because:: Homelessness - Goals of Observation Goals of observation are:: Social service Disposition - Disposition Referrals: [facility] at [facility] [Outside] Disposition: HOME/ ROUTINE Disposition Time: 05:45 Condition: STABLE Instructions: Hallucinations (ED) Forms: [facility] (Telugu) - Clinical Impression Clinical Impression: Homeless, Auditory hallucinations - Scribe Statement The provider has reviewed the documentation as recorded by the Scribalexis Gottlieb All medical record entries made by the Madhavibalexis were at my direction and personally dictated by me. I have reviewed the chart and agree that the record accurately reflects my personal performance of the history, physical exam, medical decision making, and the department course for this patient. I have also personally directed, reviewed, and agree with the discharge instructions and disposition.
== END 2016-11-05 05:56 | disposition home or self-care (01) ==
LOC: C.ER 23:23
DX: R44.0 Auditory hallucinations (principal); Z59.0 Homelessness

== ENCOUNTER 2016-11-05 22:02 | Observation (INO) | payer MEDICARE ==
[2016-11-05 22:03] VITALS: BMI 23.0
[2016-11-05 22:13] VITALS: RESP 20; O2SAT 98
--- NOTE | 2016-11-05 22:35 | C.PDOC ---
History Of Present Illness Patient presents to the ER requesting a place to stay the night. Patient is a well known local homeless man, denies physical complaints at this time. Time Seen by Provider: 11/05/16 22:32 Chief Complaint (Nursing): Anxiety History Per: Patient History/Exam Limitations: no limitations Onset/Duration Of Symptoms: Hrs Current Symptoms Are (Timing): Still Present Suicide/Self Injury Attempted (Context): None Severity: None Pain Scale Rating Of: 0 Associated Symptoms: denies: Depression, Suicidal Thoughts, Suicidal Plan Involuntary Hold By: None Recent travel outside of the [place]: No Past Medical History Reviewed: Historical Data, Nursing Documentation, Vital Signs Vital Signs: Last Vital Signs Temp 98 F 11/05/16 22:11 Pulse 81 11/05/16 22:11 Resp 20 11/05/16 22:11 BP 129/83 11/05/16 22:11 Pulse Ox 98 11/06/16 03:39 - Medical History PMH: Anxiety, Asthma, Bipolar Disorder, Depression, Gastritis, Paranoia, Personality Disorder, Schizophrenia, Seizures, Chronic Pain (abd) Surgical History: - [facility] Procedures APPLICATION OF SPLINT (04/09/14) CL FX REDUC-TIBIA/FIBULA (02/26/13) GROUP PSYCHOTHERAPY (07/30/16) INDIVID PSYCHOTHERAP NEC (12/17/13) INDIVIDUAL PSYCHOTHERAPY, BEHAVIORAL (01/29/16) INDIVIDUAL PSYCHOTHERAPY, COGNITIVE-BEHAVIORAL (07/30/16) INDIVIDUAL PSYCHOTHERAPY, SUPPORTIVE (07/22/16) MEDICATION MANAGEMENT (07/22/16) OTHER GROUP THERAPY (11/05/13) PSYCHIA INTERV/EVAL NEC (06/28/14) Family History: States: No Known Family Hx - Social History Hx Tobacco Use: Yes (heavy smoker) Hx Alcohol Use: No Hx Substance Use: No - Immunization History Hx Tetanus Toxoid Vaccination: No Hx Influenza Vaccination: Yes (2017) Hx Pneumococcal Vaccination: No Review Of Systems Constitutional: Negative for: Fever, Chills Gastrointestinal: Negative for: Nausea, Vomiting, Diarrhea Physical Exam - Physical Exam Appears: Non-toxic, No Acute Distress Skin: Warm, Dry Oral Mucosa: Moist Chest: Symmetrical, No Tenderness Cardiovascular: Rhythm Regular, No Murmur Respiratory: No Rales, No Rhonchi, No Wheezing Gastrointestinal/Abdominal: Soft, No Tenderness Neurological/Psych: Oriented x3 ED Course And Treatment O2 Sat by Pulse Oximetry: 98 (Room air) Pulse Ox Interpretation: Normal Reevaluation Time: 05:09 Reassessment Condition: Improved ED OBSERVATION Discharge: Yes Date of observation admission: 11/05/16 Time of observation admission: 22:35 - Observation admission statement Patient is being placed in observation because:: homeless - Goals of Observation Goals of observation are:: social service - Progress Note Progress Note: 11/05/16 22:35 vitals stable 11/06/16 02:39 no complaints Disposition Counseled Patient/Family Regarding: Studies Performed, Diagnosis, Need For Followup - Disposition Disposition: HOME/ ROUTINE Disposition Time: 22:33 Condition: FAIR - Clinical Impression Clinical Impression: Schizophrenia - Scribe Statement The provider has reviewed the documentation as recorded by the Scribalexis Gottlieb All medical record entries made by the Madhavibalexis were at my direction and personally dictated by me. I have reviewed the chart and agree that the record accurately reflects my personal performance of the history, physical exam, medical decision making, and the department course for this patient. I have also personally directed, reviewed, and agree with the discharge instructions and disposition.
[2016-11-06 06:30] VITALS: BP 129/71; PULSE 80; TEMP 97.9
== END 2016-11-06 05:10 | disposition home or self-care (01) ==
LOC: C.ER 22:02 → C.9OBSV 22:36
PROVIDERS: ADMIT Emergency Medicine; ATTEND Emergency Medicine
DX: F20.9 Schizophrenia, unspecified (principal); F41.9 Anxiety disorder, unspecified; J45.909 Unspecified asthma, uncomplicated; F31.9 Bipolar disorder, unspecified; F60.9 Personality disorder, unspecified; G89.29 Other chronic pain; R10.9 Unspecified abdominal pain; Z59.0 Homelessness; F17.210 Nicotine dependence, cigarettes, uncomplicated
CPT/HCPCS: G0378 ×2

== ENCOUNTER 2016-11-08 01:34 | Observation (INO) | payer MEDICARE ==
[2016-11-08 01:34] VITALS: BMI 23.0
--- NOTE | 2016-11-08 01:50 | C.PDOC ---
History Of Present Illness Patient presents to the ER requesting a place to spend the night. Denies physical complaints at this time. Time Seen by Provider: 11/08/16 01:49 History Per: Patient History/Exam Limitations: no limitations Onset/Duration Of Symptoms: Hrs Current Symptoms Are (Timing): Still Present Suicide/Self Injury Attempted (Context): None Modifying Factor(s): None Severity: None Pain Scale Rating Of: 0 Associated Symptoms: denies: Depression, Suicidal Thoughts, Suicidal Plan Involuntary Hold By: None Recent travel outside of the [place]: No Past Medical History Reviewed: Historical Data, Nursing Documentation, Vital Signs Vital Signs: Last Vital Signs Temp 98.7 F 11/08/16 01:34 Pulse 80 11/08/16 01:34 Resp 18 11/08/16 01:34 BP 116/80 11/08/16 01:34 Pulse Ox 98 11/08/16 01:34 - Medical History PMH: Anxiety, Asthma, Bipolar Disorder, Depression, Gastritis, Paranoia, Personality Disorder, Schizophrenia, Seizures, Chronic Pain (abd) Surgical History: No Surg Hx - [facility] Procedures APPLICATION OF SPLINT (04/09/14) CL FX REDUC-TIBIA/FIBULA (02/26/13) GROUP PSYCHOTHERAPY (07/30/16) INDIVID PSYCHOTHERAP NEC (12/17/13) INDIVIDUAL PSYCHOTHERAPY, BEHAVIORAL (01/29/16) INDIVIDUAL PSYCHOTHERAPY, COGNITIVE-BEHAVIORAL (07/30/16) INDIVIDUAL PSYCHOTHERAPY, SUPPORTIVE (07/22/16) MEDICATION MANAGEMENT (07/22/16) OTHER GROUP THERAPY (11/05/13) PSYCHIA INTERV/EVAL NEC (06/28/14) Family History: States: No Known Family Hx - Social History Hx Tobacco Use: Yes (heavy smoker) Hx Alcohol Use: No Hx Substance Use: No - Immunization History Hx Tetanus Toxoid Vaccination: No Hx Influenza Vaccination: Yes (2017) Hx Pneumococcal Vaccination: No Review Of Systems Constitutional: Negative for: Fever, Chills Gastrointestinal: Negative for: Nausea, Vomiting, Diarrhea Physical Exam - Physical Exam Appears: Non-toxic, No Acute Distress Skin: Warm, Dry Head: Atraumatic, Normacephalic Oral Mucosa: Moist Chest: Symmetrical, No Tenderness Cardiovascular: Rhythm Regular, No Murmur Respiratory: No Rales, No Rhonchi, No Wheezing Gastrointestinal/Abdominal: Soft, No Tenderness Neurological/Psych: Oriented x3 ED Course And Treatment O2 Sat by Pulse Oximetry: 98 Pulse Ox Interpretation: Normal ED OBSERVATION Discharge: Yes Date of observation admission: 11/08/16 Time of observation admission: 01:52 - Observation admission statement Patient is being placed in observation because:: homeless - Goals of Observation Goals of observation are:: social service - Progress Note Progress Note: 11/08/16 01:52 vitals stable 11/08/16 04:54 no complaints Disposition Counseled Patient/Family Regarding: Studies Performed, Diagnosis, Need For Followup - Disposition Referrals: [facility] at [facility] [Outside] Disposition: HOME/ ROUTINE Disposition Time: 01:49 Condition: FAIR Instructions: Schizophrenia (ED) - Clinical Impression Clinical Impression: Homeless, Schizophrenia - Scribe Statement The provider has reviewed the documentation as recorded by the Scribalexis Gottlieb All medical record entries made by the Madhavibalexis were at my direction and personally dictated by me. I have reviewed the chart and agree that the record accurately reflects my personal performance of the history, physical exam, medical decision making, and the department course for this patient. I have also personally directed, reviewed, and agree with the discharge instructions and disposition.
[2016-11-08 02:59] VITALS: RESP 18
[2016-11-08 06:05] VITALS: BP 120/67; PULSE 85; TEMP 98.5; O2SAT 99
== END 2016-11-08 04:54 | disposition home or self-care (01) ==
LOC: C.ER 01:34 → C.9OBSV 01:51
PROVIDERS: ADMIT Emergency Medicine; ATTEND Emergency Medicine
DX: F20.9 Schizophrenia, unspecified (principal); Z59.0 Homelessness
CPT/HCPCS: 99283; G0378

== ENCOUNTER 2016-11-08 23:30 | Emergency (ER) | payer MEDICARE ==
[2016-11-08 23:31] VITALS: BMI 23.0
[2016-11-08 23:56] VITALS: BP 106/69; PULSE 67; RESP 18; TEMP 97.9; O2SAT 98
--- NOTE | 2016-11-09 00:43 | C.PDOC ---
History Of Present Illness 56 year old male presents to the ED with complaints of "always hearing voices," feeling hungry, and wanting a place to sleep. Patient is well known to this ER and denies physical complaints, depression, suicidal, or homicidal ideations. Time Seen by Provider: 11/09/16 00:00 Chief Complaint (Nursing): Abdominal Pain History Per: Patient History/Exam Limitations: no limitations Onset/Duration Of Symptoms: Persistent Current Symptoms Are (Timing): Still Present Radiation Of Pain To:: None Associated Symptoms: denies: Fever, Chills, Nausea, Vomiting Recent travel outside of the [place]: No Past Medical History Reviewed: Historical Data, Nursing Documentation, Vital Signs Vital Signs: Last Vital Signs Temp 97.9 F 11/08/16 23:54 Pulse 67 11/08/16 23:54 Resp 18 11/08/16 23:54 BP 106/69 11/08/16 23:54 Pulse Ox 98 11/09/16 03:11 - Medical History PMH: Anxiety, Asthma, Bipolar Disorder, Depression, Gastritis, Paranoia, Personality Disorder, Schizophrenia, Seizures, Chronic Pain (abd) Surgical History: - [facility] Procedures APPLICATION OF SPLINT (04/09/14) CL FX REDUC-TIBIA/FIBULA (02/26/13) GROUP PSYCHOTHERAPY (07/30/16) INDIVID PSYCHOTHERAP NEC (12/17/13) INDIVIDUAL PSYCHOTHERAPY, BEHAVIORAL (01/29/16) INDIVIDUAL PSYCHOTHERAPY, COGNITIVE-BEHAVIORAL (07/30/16) INDIVIDUAL PSYCHOTHERAPY, SUPPORTIVE (07/22/16) MEDICATION MANAGEMENT (07/22/16) OTHER GROUP THERAPY (11/05/13) PSYCHIA INTERV/EVAL NEC (06/28/14) Family History: States: Unknown Family Hx - Social History Hx Tobacco Use: Yes (heavy smoker) Hx Alcohol Use: No Hx Substance Use: No - Immunization History Hx Tetanus Toxoid Vaccination: No Hx Influenza Vaccination: Yes (2017) Hx Pneumococcal Vaccination: No Review Of Systems Constitutional: Positive for: Other (Patient is hungry and wants a place to sleep ). Negative for: Fever, Chills Cardiovascular: Negative for: Chest Pain Respiratory: Negative for: Shortness of Breath Gastrointestinal: Negative for: Nausea, Vomiting Psych: Positive for: Other (Patient is hearing voices ). Negative for: Depression, Suicidal ideation Physical Exam - Physical Exam Appears: Well, Non-toxic, No Acute Distress, Other (Patient is sleeping comfortably upon exam ) Skin: Warm, Dry Head: Atraumatic Eye(s): bilateral: Normal Inspection, PERRL, EOMI Oral Mucosa: Moist Neck: Supple Chest: Symmetrical, No Deformity Cardiovascular: Rhythm Regular Respiratory: Normal Breath Sounds, No Rhonchi, No Wheezing Gastrointestinal/Abdominal: Soft, No Tenderness, No Distention, No Guarding, No Rebound Neurological/Psych: Oriented x3, Normal Speech, Normal Cognition, Normal Cranial Nerves, Normal Motor, Normal Sensation ED Course And Treatment O2 Sat by Pulse Oximetry: 98 (room air ) Disposition Counseled Patient/Family Regarding: Diagnosis, Need For Followup, Rx Given - Disposition Disposition: HOME/ ROUTINE Disposition Time: 00:40 Condition: STABLE Additional Instructions: Please follow up with psych Return to ER if worse Forms: [facility] (Burundian), General Discharge Instructions - Clinical Impression Clinical Impression: Auditory hallucination, Encounter for medical assessment - Scribe Statement The provider has reviewed the documentation as recorded by the Scribalexis Ralph All medical record entries made by the Scribe were at my direction and personally dictated by me. I have reviewed the chart and agree that the record accurately reflects my personal performance of the history, physical exam, medical decision making, and the department course for this patient. I have also personally directed, reviewed, and agree with the discharge instructions and disposition.
== END 2016-11-09 01:00 | disposition home or self-care (01) ==
LOC: C.ER 23:30
DX: R44.0 Auditory hallucinations (principal)

== ENCOUNTER 2016-11-10 00:22 | Emergency (ER) | payer MEDICARE ==
[2016-11-10 00:22] VITALS: BMI 23.0
[2016-11-10 00:30] VITALS: O2SAT 100
--- NOTE | 2016-11-10 00:32 | C.PDOC ---
History Of Present Illness 56 year old male with history of baseline schizophrenia presents to the ED seeking a place to stay. Patient is well known to this ED and denies trauma or physical complaints at this time. Time Seen by Provider: 11/10/16 00:30 Chief Complaint (Nursing): Psychiatric Evaluation History Per: Patient History/Exam Limitations: no limitations Associated Symptoms: denies: Suicidal Thoughts, Suicidal Plan Involuntary Hold By: None Recent travel outside of the [place]: No Additional History Per: Prior Records Past Medical History Reviewed: Historical Data, Nursing Documentation, Vital Signs Vital Signs: Last Vital Signs Temp 98.1 F 11/10/16 00:50 Pulse 72 11/10/16 00:50 Resp 20 11/10/16 00:50 BP 123/78 11/10/16 00:50 Pulse Ox 100 11/10/16 00:50 - Medical History PMH: Anxiety, Asthma, Bipolar Disorder, Depression, Gastritis, Paranoia, Personality Disorder, Schizophrenia, Seizures, Chronic Pain (abd) Surgical History: - [facility] Procedures APPLICATION OF SPLINT (04/09/14) CL FX REDUC-TIBIA/FIBULA (02/26/13) GROUP PSYCHOTHERAPY (07/30/16) INDIVID PSYCHOTHERAP NEC (12/17/13) INDIVIDUAL PSYCHOTHERAPY, BEHAVIORAL (01/29/16) INDIVIDUAL PSYCHOTHERAPY, COGNITIVE-BEHAVIORAL (07/30/16) INDIVIDUAL PSYCHOTHERAPY, SUPPORTIVE (07/22/16) MEDICATION MANAGEMENT (07/22/16) OTHER GROUP THERAPY (11/05/13) PSYCHIA INTERV/EVAL NEC (06/28/14) Family History: States: Unknown Family Hx - Social History Hx Tobacco Use: Yes (heavy smoker) Hx Alcohol Use: No Hx Substance Use: No - Immunization History Hx Tetanus Toxoid Vaccination: No Hx Influenza Vaccination: Yes (2017) Hx Pneumococcal Vaccination: No Review Of Systems Constitutional: Negative for: Fever, Chills Cardiovascular: Negative for: Chest Pain Respiratory: Negative for: Shortness of Breath Gastrointestinal: Negative for: Nausea, Vomiting, Abdominal Pain, Diarrhea Neurological: Negative for: Weakness, Numbness Physical Exam - Physical Exam Appears: Non-toxic, No Acute Distress, Other (Patient is at baseline ) Skin: Warm, Dry Head: Atraumatic Eye(s): bilateral: Normal Inspection Oral Mucosa: Moist Neck: Supple Chest: Symmetrical Cardiovascular: Rhythm Regular Respiratory: Normal Breath Sounds, No Wheezing Gastrointestinal/Abdominal: Soft, No Tenderness, No Distention, No Guarding, No Rebound Neurological/Psych: Oriented x3 ED Course And Treatment O2 Sat by Pulse Oximetry: 100 (room air ) Medical Decision Making Medical Decision Making: baseline MS malingering Disposition Doctor Will See Patient In The: Office Counseled Patient/Family Regarding: Studies Performed, Diagnosis - Disposition Referrals: [facility] [Outside] [facility] [Outside] [facility] [Outside] [facility]] [facility] [Outside] Disposition: HOME/ ROUTINE Disposition Time: 00:31 Condition: GOOD Instructions: Schizophrenia (ED) Forms: [facility] (Bruneian) - Clinical Impression Clinical Impression: Malingerer, Schizophrenia - Scribe Statement The provider has reviewed the documentation as recorded by the Scribe Sujatha Ralph All medical record entries made by the Scribe were at my direction and personally dictated by me. I have reviewed the chart and agree that the record accurately reflects my personal performance of the history, physical exam, medical decision making, and the department course for this patient. I have also personally directed, reviewed, and agree with the discharge instructions and disposition.
[2016-11-10 00:51] VITALS: BP 123/78; PULSE 72; RESP 20; TEMP 98.1
== END 2016-11-10 00:55 | disposition home or self-care (01) ==
LOC: C.ER 00:22
DX: F20.9 Schizophrenia, unspecified (principal); Z76.5 Malingerer [conscious simulation]

== ENCOUNTER → 2016-11-10 23:20 | Emergency (ER) | payer MEDICARE ==
[2016-11-10 23:20] VITALS: BMI 23.0
== END | disposition left against medical advice (07) ==
LOC: C.ER 23:20
DX: Z02.89 Encounter for other administrative examinations (principal)

== ENCOUNTER 2016-11-11 03:06 | Emergency (ER) | payer MEDICARE ==
[2016-11-11 03:06] VITALS: BMI 23.0
[2016-11-11 03:12] VITALS: RESP 16
--- NOTE | 2016-11-11 03:23 | C.PDOC ---
History Of Present Illness 56 year old male with history of schizophrenia presents to the ED requesting for a bed to sleep in for tonight. States that his sister would not let him in to his home. Patient is well known to this ED, on further questioning, the patient denies any trauma, injury, fever, chills, headache, CP, abdominal pain, nausea, SI or HI. Time Seen by Provider: 11/11/16 03:13 Chief Complaint (Nursing): Medical Clearance History Per: Patient History/Exam Limitations: no limitations Reports Recently: Seen In ED Recent travel outside of the [place]: No Past Medical History Vital Signs: Last Vital Signs Temp 98 F 11/11/16 05:45 Pulse 72 11/11/16 05:45 Resp 16 11/11/16 05:45 BP 101/72 11/11/16 05:45 Pulse Ox 100 11/11/16 05:45 - Medical History PMH: Anxiety, Asthma, Bipolar Disorder, Depression, Gastritis, Paranoia, Personality Disorder, Schizophrenia, Seizures, Chronic Pain (abd) Denies: HIV, HTN, Chronic Kidney Disease, Sexually Transmitted Disease Surgical History: - [facility] Procedures APPLICATION OF SPLINT (04/09/14) CL FX REDUC-TIBIA/FIBULA (02/26/13) GROUP PSYCHOTHERAPY (07/30/16) INDIVID PSYCHOTHERAP NEC (12/17/13) INDIVIDUAL PSYCHOTHERAPY, BEHAVIORAL (01/29/16) INDIVIDUAL PSYCHOTHERAPY, COGNITIVE-BEHAVIORAL (07/30/16) INDIVIDUAL PSYCHOTHERAPY, SUPPORTIVE (07/22/16) MEDICATION MANAGEMENT (07/22/16) OTHER GROUP THERAPY (11/05/13) PSYCHIA INTERV/EVAL NEC (06/28/14) Family History: States: Unknown Family Hx - Social History Hx Tobacco Use: Yes (heavy smoker) Hx Alcohol Use: No Hx Substance Use: No - Immunization History Hx Tetanus Toxoid Vaccination: No Hx Influenza Vaccination: Yes (2017) Hx Pneumococcal Vaccination: No Review Of Systems Constitutional: Negative for: Fever, Chills Cardiovascular: Negative for: Chest Pain, Palpitations, Edema Respiratory: Negative for: Cough, Shortness of Breath, Wheezing Gastrointestinal: Negative for: Vomiting, Abdominal Pain, Diarrhea Skin: Negative for: Rash, Lesions, Bruising Neurological: Negative for: Weakness, Numbness, Dizziness Psych: Positive for: Other (chronically hears voices). Negative for: Anxiety, Depression Physical Exam - Physical Exam Appears: Well, Non-toxic, Unkempt Skin: Normal Color, Warm, Dry, No Rash Head: Atraumatic, Normacephalic Eye(s): bilateral: Normal Inspection, PERRL, EOMI Ear(s): Bilateral: Normal Oral Mucosa: Moist Neck: Normal, Normal ROM Chest: Symmetrical Cardiovascular: Rhythm Regular, No Murmur Respiratory: Normal Breath Sounds, No Decreased Breath Sounds, No Rales, No Rhonchi, No Stridor Gastrointestinal/Abdominal: Soft, No Tenderness, No Distention, No Guarding, No Rebound Back: Normal Inspection, No Vertebral Tenderness Extremity: Normal ROM, No Tenderness, No Swelling Neurological/Psych: Oriented x3, Normal Speech, Normal Cognition, Normal Cranial Nerves, Normal Motor, Normal Sensation ED Course And Treatment O2 Sat by Pulse Oximetry: 98 Medical Decision Making Medical Decision Makin56 year old male with history of schizophrenia presents to the ED requesting for a bed to sleep in for tonight. Plan : Patient placed in a comfortable bed to sleep in. Placed in ED observation. ED OBSERVATION Date of observation admission: 11/11/16 Time of observation admission: 03:20 - Observation admission statement Patient is being placed in observation because:: Pt is homeless - Goals of Observation Goals of observation are:: Patient needs a place to sleep for the night. - Progress Note Progress Note: 11/11/16 04:30 Patient sleeping in bed comfortably in no acute distress. Breathing is easy and unlabored. 11/11/16 06:30 On re-evaluation, pt is awake, alert and in no acute distress, has no complaints at this time. He states that he wants to go home. Patient safe for discharge. Disposition - Disposition Disposition: HOME/ ROUTINE Disposition Time: 06:30 Condition: STABLE Instructions: Schizophrenia (ED) Forms: [employer] (Armenian) Print Language: FRENCH - Clinical Impression Clinical Impression: Homeless, Schizophrenia, chronic condition - PA / CALL CENTRE SUPERVISOR / Resident Statement MD/DO has reviewed & agrees with the documentation as recorded.
[2016-11-11 05:46] VITALS: BP 101/72; PULSE 72; TEMP 98
[2016-11-11 06:30] VITALS: O2SAT 98
== END 2016-11-11 05:45 | disposition home or self-care (01) ==
LOC: C.ER 03:06
DX: F20.9 Schizophrenia, unspecified (principal); Z59.0 Homelessness

== ENCOUNTER 2016-11-13 00:21 | Emergency (ER) | payer MEDICARE ==
[2016-11-13 00:22] VITALS: BMI 23.0
[2016-11-13 00:29] VITALS: BP 103/71; PULSE 89; RESP 20; TEMP 97.6; O2SAT 97
--- NOTE | 2016-11-13 00:39 | C.PDOC ---
History Of Present Illness 56 year old male who presents to the ER with a complaint of hearing voices and requesting a place to sleep. Patient denies suicidal ideation or homicidal ideation. Time Seen by Provider: 11/13/16 00:32 Chief Complaint (Nursing): Medical Clearance History Per: Patient History/Exam Limitations: no limitations Onset/Duration Of Symptoms: Days Current Symptoms Are (Timing): Still Present Recent travel outside of the [place]: No Past Medical History Reviewed: Historical Data, Nursing Documentation, Vital Signs Vital Signs: Last Vital Signs Temp 97.6 F 11/13/16 00:27 Pulse 89 11/13/16 00:27 Resp 20 11/13/16 00:27 BP 103/71 11/13/16 00:27 Pulse Ox 97 11/13/16 04:31 - Medical History PMH: Anxiety, Asthma, Bipolar Disorder, Depression, Gastritis, Paranoia, Personality Disorder, Schizophrenia, Seizures, Chronic Pain (abd) Surgical History: No Surg Hx - [facility] Procedures APPLICATION OF SPLINT (04/09/14) CL FX REDUC-TIBIA/FIBULA (02/26/13) GROUP PSYCHOTHERAPY (07/30/16) INDIVID PSYCHOTHERAP NEC (12/17/13) INDIVIDUAL PSYCHOTHERAPY, BEHAVIORAL (01/29/16) INDIVIDUAL PSYCHOTHERAPY, COGNITIVE-BEHAVIORAL (07/30/16) INDIVIDUAL PSYCHOTHERAPY, SUPPORTIVE (07/22/16) MEDICATION MANAGEMENT (07/22/16) OTHER GROUP THERAPY (11/05/13) PSYCHIA INTERV/EVAL NEC (06/28/14) Family History: States: Unknown Family Hx - Social History Hx Tobacco Use: Yes (heavy smoker) Hx Alcohol Use: No Hx Substance Use: No - Immunization History Hx Tetanus Toxoid Vaccination: No Hx Influenza Vaccination: Yes (2017) Hx Pneumococcal Vaccination: No Review Of Systems Constitutional: Negative for: Fever, Chills Gastrointestinal: Negative for: Nausea, Vomiting, Diarrhea Psych: Negative for: Suicidal ideation Physical Exam - Physical Exam Appears: Non-toxic, No Acute Distress Skin: Normal Color, Warm, Dry Head: Atraumatic, Normacephalic Oral Mucosa: Moist Chest: Symmetrical, No Tenderness Cardiovascular: Rhythm Regular, No Murmur Respiratory: Normal Breath Sounds, No Rales, No Rhonchi, No Wheezing Gastrointestinal/Abdominal: Soft, No Tenderness Neurological/Psych: Oriented x3, Normal Speech, Normal Cognition ED Course And Treatment O2 Sat by Pulse Oximetry: 97 (Room air) Pulse Ox Interpretation: Normal Progress Note: Patient offered to speak with marquetry worker; he refuses and states he just wishes to sleep. Patient's vitals are stable, he is awake, alert and in no acute distress; will discharge home. Disposition Counseled Patient/Family Regarding: Diagnosis - Disposition Referrals: [facility] [Outside] Disposition: HOME/ ROUTINE Disposition Time: 00:37 Condition: STABLE Additional Instructions: Please follw up with your psychiatrist Forms: General Discharge Instructions - Clinical Impression Clinical Impression: Hearing voices - Scribe Statement The provider has reviewed the documentation as recorded by the Scribe Howard Gottlieb All medical record entries made by the Scribe were at my direction and personally dictated by me. I have reviewed the chart and agree that the record accurately reflects my personal performance of the history, physical exam, medical decision making, and the department course for this patient. I have also personally directed, reviewed, and agree with the discharge instructions and disposition.
== END 2016-11-13 00:43 | disposition home or self-care (01) ==
LOC: C.ER 00:21
DX: R44.0 Auditory hallucinations (principal)

== ENCOUNTER 2016-11-17 23:26 | Emergency (ER) | payer MEDICARE ==
[2016-11-17 23:26] VITALS: BMI 23.0
[2016-11-17 23:53] VITALS: BP 111/78; PULSE 77; RESP 20; TEMP 97.9; O2SAT 98
== END 2016-11-17 23:48 | disposition left against medical advice (07) ==
LOC: C.ER 23:26
DX: R69 Illness, unspecified (principal); Z02.9 Encounter for administrative examinations, unspecified

== ENCOUNTER 2016-11-20 17:41 | Emergency (ER) | payer MEDICARE ==
[2016-11-20 17:41] VITALS: BMI 23.0
[2016-11-20 18:08] VITALS: BP 103/75; PULSE 89; RESP 20; TEMP 97.7; O2SAT 96
--- NOTE | 2016-11-20 18:35 | C.PDOC ---
History Of Present Illness 56 y/o male presents to ED with complaints of bilateral foot pain. Patient states he has been walking around a lot and legs started to hurt. Patient denies injury, numbness, fever. Patient is frequent ER visitor with vague complaints, history of schizophrenia. Time Seen by Provider: 11/20/16 18:12 Chief Complaint (Nursing): Lower Extremity Problem/Injury History Per: Patient History/Exam Limitations: no limitations Onset/Duration Of Symptoms: Days Current Symptoms Are (Timing): Still Present Past Medical History Reviewed: Historical Data, Nursing Documentation, Vital Signs Vital Signs: Last Vital Signs Temp 97.7 F 11/20/16 18:06 Pulse 89 11/20/16 18:06 Resp 20 11/20/16 18:06 BP 103/75 11/20/16 18:06 Pulse Ox 96 11/20/16 18:36 - Medical History PMH: Anxiety, Asthma, Bipolar Disorder, Depression, Gastritis, Paranoia, Personality Disorder, Schizophrenia, Seizures, Chronic Pain (abd) Surgical History: - [facility] Procedures APPLICATION OF SPLINT (04/09/14) CL FX REDUC-TIBIA/FIBULA (02/26/13) GROUP PSYCHOTHERAPY (07/30/16) INDIVID PSYCHOTHERAP NEC (12/17/13) INDIVIDUAL PSYCHOTHERAPY, BEHAVIORAL (01/29/16) INDIVIDUAL PSYCHOTHERAPY, COGNITIVE-BEHAVIORAL (07/30/16) INDIVIDUAL PSYCHOTHERAPY, SUPPORTIVE (07/22/16) MEDICATION MANAGEMENT (07/22/16) OTHER GROUP THERAPY (11/05/13) PSYCHIA INTERV/EVAL NEC (06/28/14) Family History: States: Unknown Family Hx - Social History Hx Tobacco Use: Yes (heavy smoker) Hx Alcohol Use: No Hx Substance Use: No - Immunization History Hx Tetanus Toxoid Vaccination: No Hx Influenza Vaccination: Yes (2016) Hx Pneumococcal Vaccination: No Review Of Systems Constitutional: Negative for: Fever, Chills Musculoskeletal: Positive for: Leg Pain, Foot Pain. Negative for: Back Pain Skin: Negative for: Rash Neurological: Negative for: Weakness, Numbness Physical Exam - Physical Exam Appears: Non-toxic, No Acute Distress, Unkempt Skin: Warm, Dry, No Rash Head: Atraumatic, Normacephalic Eye(s): bilateral: Normal Inspection, EOMI Oral Mucosa: Moist Neck: Normal ROM Chest: Symmetrical Extremity: Normal ROM, No Tenderness, No Pedal Edema, No Calf Tenderness, No Deformity, No Swelling Neurological/Psych: Oriented x3, Normal Speech Gait: Steady ED Course And Treatment O2 Sat by Pulse Oximetry: 96 (RA) Pulse Ox Interpretation: Normal Medical Decision Making Medical Decision Making: Patient evaluated for foot pain. Tylenol was ordered. RN informed me patient eloped after being evaluated. Patient is frequent ER visitor, well known to this ED with vague complaints and usually bed seeking Disposition Counseled Patient/Family Regarding: Diagnosis, Need For Followup - Disposition Disposition: HOME/ ROUTINE Disposition Time: 18:50 Condition: STABLE Forms: [employer] (Portuguese) - POA Present On Arrival: None - Clinical Impression Clinical Impression: Foot pain, bilateral - PA / CREDIT INTERVIEWER / Resident Statement MD/DO has reviewed & agrees with the documentation as recorded. - Scribe Statement The provider has reviewed the documentation as recorded by the Scribalexis Puente All medical record entries made by the Madhavibalexis were at my direction and personally dictated by me. I have reviewed the chart and agree that the record accurately reflects my personal performance of the history, physical exam, medical decision making, and the department course for this patient. I have also personally directed, reviewed, and agree with the discharge instructions and disposition.
== END 2016-11-20 18:52 | disposition home or self-care (01) ==
LOC: C.ER 17:41
DX: M79.671 Pain in right foot (principal); M79.672 Pain in left foot

== ENCOUNTER 2016-11-22 23:42 | Emergency (ER) | payer MEDICARE ==
[2016-11-22 23:42] VITALS: BMI 23.0
[2016-11-23 00:01] VITALS: RESP 18
--- NOTE | 2016-11-23 00:21 | C.PDOC ---
History Of Present Illness 56 year old male presents to the ER requesting a place to spend the night. He denies physical complaints at this time. Time Seen by Provider: 11/23/16 00:12 Chief Complaint (Nursing): Medical Clearance History Per: Patient History/Exam Limitations: no limitations Severity: None Reports Recently: Seen In ED Recent travel outside of the [place]: No Past Medical History Reviewed: Historical Data, Nursing Documentation, Vital Signs Vital Signs: Last Vital Signs Temp 98.3 F 11/23/16 04:19 Pulse 89 11/23/16 04:19 Resp 18 11/23/16 04:19 BP 105/75 11/23/16 04:19 Pulse Ox 99 11/23/16 04:19 - Medical History PMH: Anxiety, Asthma, Bipolar Disorder, Depression, Gastritis, Paranoia, Personality Disorder, Schizophrenia, Seizures, Chronic Pain (abd) Surgical History: No Surg Hx - [facility] Procedures APPLICATION OF SPLINT (04/09/14) CL FX REDUC-TIBIA/FIBULA (02/26/13) GROUP PSYCHOTHERAPY (07/30/16) INDIVID PSYCHOTHERAP NEC (12/17/13) INDIVIDUAL PSYCHOTHERAPY, BEHAVIORAL (01/29/16) INDIVIDUAL PSYCHOTHERAPY, COGNITIVE-BEHAVIORAL (07/30/16) INDIVIDUAL PSYCHOTHERAPY, SUPPORTIVE (07/22/16) MEDICATION MANAGEMENT (07/22/16) OTHER GROUP THERAPY (11/05/13) PSYCHIA INTERV/EVAL NEC (06/28/14) Family History: States: No Known Family Hx - Social History Hx Tobacco Use: Yes (heavy smoker) Hx Alcohol Use: No Hx Substance Use: No - Immunization History Hx Tetanus Toxoid Vaccination: No Hx Influenza Vaccination: Yes (2017) Hx Pneumococcal Vaccination: No Review Of Systems Except As Marked, All Systems Reviewed And Found Negative. Constitutional: Negative for: Fever, Chills Cardiovascular: Negative for: Chest Pain, Palpitations Respiratory: Negative for: Shortness of Breath Gastrointestinal: Negative for: Nausea, Vomiting, Abdominal Pain Psych: Negative for: Anxiety, Depression, Suicidal ideation Physical Exam - Physical Exam Appears: Well, Non-toxic, No Acute Distress, Other (bizarre affect) Skin: Normal Color, Warm, Dry Head: Atraumatic, Normacephalic Oral Mucosa: Moist Cardiovascular: Rhythm Regular Respiratory: Normal Breath Sounds, No Rales, No Rhonchi, No Wheezing Neurological/Psych: Oriented x3 Gait: Steady ED Course And Treatment O2 Sat by Pulse Oximetry: 97 (Room air) Pulse Ox Interpretation: Normal Reevaluation Time: 04:00 Reassessment Condition: Improved (Patient currently AAPx3, ambulating normally in the ED and wants to be discharged. He denies SI/HI or substance/alcohol use. Will discharge.) Disposition Counseled Patient/Family Regarding: Diagnosis, Need For Followup, Rx Given - Disposition Referrals: [facility] [Outside] Disposition: HOME/ ROUTINE Disposition Time: 04:15 Condition: STABLE Forms: [employer] (Gibraltarian) Print Language: CITIZEN OF [place] - Clinical Impression Clinical Impression: Normal exam, Excessive hunger - Scribe Statement The provider has reviewed the documentation as recorded by the Scribalexis Gottlieb All medical record entries made by the Madhavibe were at my direction and personally dictated by me. I have reviewed the chart and agree that the record accurately reflects my personal performance of the history, physical exam, medical decision making, and the department course for this patient. I have also personally directed, reviewed, and agree with the discharge instructions and disposition.
[2016-11-23 05:21] VITALS: BP 105/75; PULSE 89; TEMP 98.3
[2016-11-27 18:28] VITALS: O2SAT 97
== END 2016-11-23 04:19 | disposition home or self-care (01) ==
LOC: C.ER 23:42
DX: R63.2 Polyphagia (principal)

== ENCOUNTER → 2016-11-27 08:24 | Emergency (ER) | payer MEDICARE ==
[2016-11-27 08:25] VITALS: BMI 23.0
== END | disposition left against medical advice (07) ==
LOC: C.ER 08:24
DX: R44.0 Auditory hallucinations (principal); Z02.9 Encounter for administrative examinations, unspecified

== ENCOUNTER 2016-11-28 01:20 | Emergency (ER) | payer MEDICARE ==
[2016-11-28 01:21] VITALS: BMI 23.0
--- NOTE | 2016-11-28 01:40 | C.PDOC ---
History Of Present Illness Patient presents to the ER requesting a place to stay for the night. Denies SI, HI, or somatic complaints. Time Seen by Provider: 11/28/16 01:39 History Per: Patient History/Exam Limitations: no limitations Suicide/Self Injury Attempted (Context): None Modifying Factor(s): None Severity: None Associated Symptoms: denies: Suicidal Thoughts, Suicidal Plan Involuntary Hold By: None Recent travel outside of the [place]: No Additional History Per: Patient Past Medical History Reviewed: Historical Data, Nursing Documentation, Vital Signs Vital Signs: Last Vital Signs Temp 98 F 11/28/16 01:40 Pulse 92 H 11/28/16 01:40 Resp 20 11/28/16 01:40 BP 106/72 11/28/16 01:40 Pulse Ox 96 11/28/16 02:24 - Medical History PMH: Anxiety, Asthma, Bipolar Disorder, Depression, Gastritis, Paranoia, Personality Disorder, Schizophrenia, Seizures, Chronic Pain (abd) Denies: HIV, HTN, Chronic Kidney Disease, Sexually Transmitted Disease Surgical History: - [facility] Procedures APPLICATION OF SPLINT (04/09/14) CL FX REDUC-TIBIA/FIBULA (02/26/13) GROUP PSYCHOTHERAPY (07/30/16) INDIVID PSYCHOTHERAP NEC (12/17/13) INDIVIDUAL PSYCHOTHERAPY, BEHAVIORAL (01/29/16) INDIVIDUAL PSYCHOTHERAPY, COGNITIVE-BEHAVIORAL (07/30/16) INDIVIDUAL PSYCHOTHERAPY, SUPPORTIVE (07/22/16) MEDICATION MANAGEMENT (07/22/16) OTHER GROUP THERAPY (11/05/13) PSYCHIA INTERV/EVAL NEC (06/28/14) Family History: States: Unknown Family Hx - Social History Hx Tobacco Use: Yes (heavy smoker) Hx Alcohol Use: No Hx Substance Use: No - Immunization History Hx Tetanus Toxoid Vaccination: No Hx Influenza Vaccination: Yes (2016) Hx Pneumococcal Vaccination: No Review Of Systems Constitutional: Negative for: Fever, Chills ENT: Negative for: Throat Pain Cardiovascular: Negative for: Chest Pain Respiratory: Negative for: Shortness of Breath Gastrointestinal: Negative for: Abdominal Pain Genitourinary: Negative for: Dysuria Skin: Negative for: Rash Psych: Negative for: Suicidal ideation, Other (Homicidal ideation) Physical Exam - Physical Exam Appears: Non-toxic, No Acute Distress Skin: Warm, Dry Head: Atraumatic, Normacephalic Neck: Supple Chest: Symmetrical Cardiovascular: Rhythm Regular Respiratory: No Rales, No Rhonchi, No Wheezing Gastrointestinal/Abdominal: Soft, No Tenderness Neurological/Psych: Oriented x3, Normal Speech, Normal Cognition Gait: Steady ED Course And Treatment O2 Sat by Pulse Oximetry: 96 (RA) Pulse Ox Interpretation: Normal Reevaluation Time: 06:23 Reassessment Condition: Improved ED OBSERVATION Discharge: Yes Date of observation admission: 11/28/16 Time of observation admission: 02:16 - Goals of Observation Goals of observation are:: social service - Progress Note Progress Note: 11/28/16 02:16 vitals stable Disposition Counseled Patient/Family Regarding: Studies Performed, Diagnosis - Disposition Disposition: HOME/ ROUTINE Disposition Time: 01:40 Condition: FAIR Instructions: Schizophrenia (ED) Forms: [employer] (Ghanaian) - Clinical Impression Clinical Impression: Schizophrenia - Scribe Statement The provider has reviewed the documentation as recorded by the Scribe Lakeisha bowden All medical record entries made by the Scribe were at my direction and personally dictated by me. I have reviewed the chart and agree that the record accurately reflects my personal performance of the history, physical exam, medical decision making, and the department course for this patient. I have also personally directed, reviewed, and agree with the discharge instructions and disposition.
[2016-11-28 01:43] VITALS: O2SAT 96
[2016-11-28 06:27] VITALS: BP 110/70; PULSE 88; RESP 16; TEMP 98.1
== END 2016-11-28 05:30 | disposition home or self-care (01) ==
LOC: C.ER 01:20
DX: F20.9 Schizophrenia, unspecified (principal)

== ENCOUNTER 2016-11-28 21:05 | Emergency (ER) | payer MEDICARE ==
[2016-11-28 21:05] VITALS: BMI 23.0
[2016-11-28 21:14] VITALS: BP 128/68; PULSE 70; RESP 20; TEMP 97.9; O2SAT 97
--- NOTE | 2016-11-28 21:24 | C.PDOC ---
History Of Present Illness 56 year old male who presents to the ER looking for a place to spend the night; denies any new complaints. Time Seen by Provider: 11/28/16 21:23 Chief Complaint (Nursing): Medical Clearance History Per: Patient History/Exam Limitations: no limitations Onset/Duration Of Symptoms: Days Current Symptoms Are (Timing): Still Present Reports Recently: Seen In ED Recent travel outside of the [place]: No Past Medical History Reviewed: Historical Data, Nursing Documentation, Vital Signs Vital Signs: Last Vital Signs Temp 97.9 F 11/28/16 21:11 Pulse 70 11/28/16 21:11 Resp 20 11/28/16 21:11 BP 128/68 11/28/16 21:11 Pulse Ox 97 11/28/16 21:24 - Medical History PMH: Anxiety, Asthma, Bipolar Disorder, Depression, Gastritis, Paranoia, Personality Disorder, Schizophrenia, Seizures, Chronic Pain (abd) Surgical History: No Surg Hx - [facility] Procedures APPLICATION OF SPLINT (04/09/14) CL FX REDUC-TIBIA/FIBULA (02/26/13) GROUP PSYCHOTHERAPY (07/30/16) INDIVID PSYCHOTHERAP NEC (12/17/13) INDIVIDUAL PSYCHOTHERAPY, BEHAVIORAL (01/29/16) INDIVIDUAL PSYCHOTHERAPY, COGNITIVE-BEHAVIORAL (07/30/16) INDIVIDUAL PSYCHOTHERAPY, SUPPORTIVE (07/22/16) MEDICATION MANAGEMENT (07/22/16) OTHER GROUP THERAPY (11/05/13) PSYCHIA INTERV/EVAL NEC (06/28/14) Family History: States: Unknown Family Hx - Social History Hx Tobacco Use: Yes (heavy smoker) Hx Alcohol Use: No Hx Substance Use: No - Immunization History Hx Tetanus Toxoid Vaccination: No Hx Influenza Vaccination: Yes (2016) Hx Pneumococcal Vaccination: No Review Of Systems Constitutional: Negative for: Fever, Chills Gastrointestinal: Negative for: Nausea, Vomiting, Diarrhea Physical Exam - Physical Exam Appears: Non-toxic, No Acute Distress Skin: Normal Color, Warm, Dry Head: Atraumatic, Normacephalic Oral Mucosa: Moist Chest: Symmetrical, No Tenderness Cardiovascular: Rhythm Regular, No Murmur Respiratory: Normal Breath Sounds, No Rales, No Rhonchi, No Wheezing Gastrointestinal/Abdominal: Soft, No Tenderness Neurological/Psych: Oriented x3, Normal Speech, Normal Cognition ED Course And Treatment O2 Sat by Pulse Oximetry: 97 (Room air) Pulse Ox Interpretation: Normal Medical Decision Making Medical Decision Making: baseline schizophrenia, not intoxicated, typical malingering. Disposition Doctor Will See Patient In The: Office Counseled Patient/Family Regarding: Studies Performed, Diagnosis - Disposition Referrals: [facility] [Outside] [facility] [Outside] [facility] [Outside] Disposition: HOME/ ROUTINE Disposition Time: 21:23 Condition: GOOD Additional Instructions: seek nightly Prison placement or stay @ home in the evenings. Instructions: Schizophrenia (ED) Forms: [employer] (Setswana) - Clinical Impression Clinical Impression: Schizophrenia, Homeless, Malingering - Scribe Statement The provider has reviewed the documentation as recorded by the Scribe Howard Gottlieb All medical record entries made by the Scribe were at my direction and personally dictated by me. I have reviewed the chart and agree that the record accurately reflects my personal performance of the history, physical exam, medical decision making, and the department course for this patient. I have also personally directed, reviewed, and agree with the discharge instructions and disposition.
== END 2016-11-28 21:51 | disposition home or self-care (01) ==
LOC: C.ER 21:05
DX: F20.9 Schizophrenia, unspecified (principal); Z76.5 Malingerer [conscious simulation]; Z59.0 Homelessness

== ENCOUNTER 2016-11-29 04:05 | Emergency (ER) | payer MEDICARE ==
[2016-11-29 04:05] VITALS: BMI 23.0
--- NOTE | 2016-11-29 04:12 | C.PDOC ---
History Of Present Illness Patient presents to the ER requesting a place to stay the night. Denies physical complaints at this time. Time Seen by Provider: 11/29/16 04:11 Chief Complaint (Nursing): Medical Clearance History Per: Patient History/Exam Limitations: no limitations Onset/Duration Of Symptoms: Hrs Current Symptoms Are (Timing): Still Present Recent travel outside of the [place]: No Past Medical History Reviewed: Historical Data, Nursing Documentation, Vital Signs Vital Signs: Last Vital Signs Temp 97.9 F 11/29/16 04:10 Pulse 78 11/29/16 04:10 Resp 20 11/29/16 04:10 BP 128/72 11/29/16 04:10 Pulse Ox 97 11/29/16 04:10 - Medical History PMH: Anxiety, Asthma, Bipolar Disorder, Depression, Gastritis, Paranoia, Personality Disorder, Schizophrenia, Seizures, Chronic Pain (abd) Surgical History: No Surg Hx - [facility] Procedures APPLICATION OF SPLINT (04/09/14) CL FX REDUC-TIBIA/FIBULA (02/26/13) GROUP PSYCHOTHERAPY (07/30/16) INDIVID PSYCHOTHERAP NEC (12/17/13) INDIVIDUAL PSYCHOTHERAPY, BEHAVIORAL (01/29/16) INDIVIDUAL PSYCHOTHERAPY, COGNITIVE-BEHAVIORAL (07/30/16) INDIVIDUAL PSYCHOTHERAPY, SUPPORTIVE (07/22/16) MEDICATION MANAGEMENT (07/22/16) OTHER GROUP THERAPY (11/05/13) PSYCHIA INTERV/EVAL NEC (06/28/14) Family History: States: No Known Family Hx - Social History Hx Tobacco Use: Yes (heavy smoker) Hx Alcohol Use: No Hx Substance Use: No - Immunization History Hx Tetanus Toxoid Vaccination: No Hx Influenza Vaccination: Yes (2016) Hx Pneumococcal Vaccination: No Review Of Systems Constitutional: Negative for: Fever, Chills Gastrointestinal: Negative for: Nausea, Vomiting, Diarrhea Physical Exam - Physical Exam Appears: Non-toxic, No Acute Distress Skin: Warm, Dry Oral Mucosa: Moist Chest: Symmetrical, No Tenderness Cardiovascular: Rhythm Regular, No Murmur Respiratory: No Rales, No Rhonchi, No Wheezing Gastrointestinal/Abdominal: Soft, No Tenderness Neurological/Psych: Oriented x3 Disposition Counseled Patient/Family Regarding: Studies Performed, Diagnosis, Need For Followup - Disposition Referrals: [facility] [Outside] Disposition: HOME/ ROUTINE Disposition Time: 04:11 Condition: FAIR Instructions: Schizophrenia (ED) Forms: [facility] (Serbian) - Clinical Impression Clinical Impression: Schizophrenia - Scribe Statement The provider has reviewed the documentation as recorded by the Scribe Howard Gottlieb All medical record entries made by the Scribe were at my direction and personally dictated by me. I have reviewed the chart and agree that the record accurately reflects my personal performance of the history, physical exam, medical decision making, and the department course for this patient. I have also personally directed, reviewed, and agree with the discharge instructions and disposition.
[2016-11-29 04:15] VITALS: RESP 20; TEMP 97.9; O2SAT 97
[2016-11-29 05:54] VITALS: BP 128/68; PULSE 3
== END 2016-11-29 05:50 | disposition home or self-care (01) ==
LOC: C.ER 04:05
DX: F20.9 Schizophrenia, unspecified (principal)

== ENCOUNTER 2016-11-30 21:06 | Observation (INO) | payer MEDICARE ==
[2016-11-30 21:06] VITALS: BMI 23.0
[2016-11-30 21:11] VITALS: BP 104/65; PULSE 98; RESP 20; TEMP 98.5; O2SAT 99
--- NOTE | 2016-11-30 21:25 | C.PDOC ---
History Of Present Illness 56 year old male who presents to the ER with a complaint of hearing voices and requesting a place to spend the night. Denies physical complaints at this time. Chief Complaint (Nursing): Anxiety History Per: Patient History/Exam Limitations: no limitations Onset/Duration Of Symptoms: Hrs Current Symptoms Are (Timing): Still Present Suicide/Self Injury Attempted (Context): None Modifying Factor(s): None Associated Symptoms: denies: Depression, Suicidal Thoughts, Suicidal Plan Involuntary Hold By: None Recent travel outside of the [place]: No Past Medical History Reviewed: Historical Data, Nursing Documentation, Vital Signs Vital Signs: Last Vital Signs Temp 98.5 F 11/30/16 21:09 Pulse 98 H 11/30/16 21:09 Resp 20 11/30/16 21:09 BP 104/65 11/30/16 21:09 Pulse Ox 99 12/01/16 01:16 - Medical History PMH: Anxiety, Asthma, Bipolar Disorder, Depression, Gastritis, Paranoia, Personality Disorder, Schizophrenia, Seizures, Chronic Pain (abd) Surgical History: No Surg Hx - [facility] Procedures APPLICATION OF SPLINT (04/09/14) CL FX REDUC-TIBIA/FIBULA (02/26/13) GROUP PSYCHOTHERAPY (07/30/16) INDIVID PSYCHOTHERAP NEC (12/17/13) INDIVIDUAL PSYCHOTHERAPY, BEHAVIORAL (01/29/16) INDIVIDUAL PSYCHOTHERAPY, COGNITIVE-BEHAVIORAL (07/30/16) INDIVIDUAL PSYCHOTHERAPY, SUPPORTIVE (07/22/16) MEDICATION MANAGEMENT (07/22/16) OTHER GROUP THERAPY (11/05/13) PSYCHIA INTERV/EVAL NEC (06/28/14) Family History: States: Unknown Family Hx - Social History Hx Tobacco Use: Yes (heavy smoker) Hx Alcohol Use: No Hx Substance Use: No - Immunization History Hx Tetanus Toxoid Vaccination: No Hx Influenza Vaccination: Yes (2016) Hx Pneumococcal Vaccination: No Review Of Systems Constitutional: Negative for: Fever, Chills Gastrointestinal: Negative for: Nausea, Vomiting, Diarrhea Physical Exam - Physical Exam Appears: Non-toxic, No Acute Distress Skin: Normal Color, Warm, Dry Head: Atraumatic, Normacephalic Oral Mucosa: Moist Chest: Symmetrical, No Tenderness Cardiovascular: Rhythm Regular, No Murmur Respiratory: Normal Breath Sounds, No Rales, No Rhonchi, No Wheezing Gastrointestinal/Abdominal: Soft, No Tenderness Neurological/Psych: Oriented x3, Normal Speech, Normal Cognition ED Course And Treatment O2 Sat by Pulse Oximetry: 99 (Room air) Pulse Ox Interpretation: Normal ED OBSERVATION Date of observation admission: 11/30/16 Time of observation admission: 20:05 - Observation admission statement Patient is being placed in observation because:: Homelessness - Goals of Observation Goals of observation are:: Social service Disposition Counseled Patient/Family Regarding: Diagnosis - Disposition Disposition: HOME/ ROUTINE Disposition Time: 04:53 Condition: STABLE - Clinical Impression Clinical Impression: Anxiety, Hallucination - Scribe Statement The provider has reviewed the documentation as recorded by the Scribe Howard Gottlieb All medical record entries made by the Madhavibalexis were at my direction and personally dictated by me. I have reviewed the chart and agree that the record accurately reflects my personal performance of the history, physical exam, medical decision making, and the department course for this patient. I have also personally directed, reviewed, and agree with the discharge instructions and disposition.
== END 2016-12-01 04:51 | disposition home or self-care (01) ==
LOC: C.ER 21:06 → C.9OBSV 22:47
PROVIDERS: ADMIT Emergency Medicine; ATTEND Emergency Medicine
DX: R44.3 Hallucinations, unspecified (principal); F41.9 Anxiety disorder, unspecified; F31.9 Bipolar disorder, unspecified
CPT/HCPCS: G0378 ×2

== ENCOUNTER 2016-12-01 23:48 | Observation (INO) | payer MEDICARE ==
[2016-12-01 23:48] VITALS: BMI 23.0
--- NOTE | 2016-12-02 00:01 | C.PDOC ---
History Of Present Illness Patient presents to the ER requesting a place to stay the night. Denies suicidal ideation or homicidal ideation. Time Seen by Provider: 12/01/16 23:59 Chief Complaint (Nursing): Psychiatric Evaluation History Per: Patient History/Exam Limitations: no limitations Onset/Duration Of Symptoms: Days Current Symptoms Are (Timing): Gone Suicide/Self Injury Attempted (Context): None Modifying Factor(s): None Severity: None Pain Scale Rating Of: 0 Associated Symptoms: denies: Depression, Suicidal Thoughts, Suicidal Plan Involuntary Hold By: None Recent travel outside of the [place]: No Additional History Per: Patient Past Medical History Reviewed: Historical Data, Nursing Documentation, Vital Signs Vital Signs: Last Vital Signs Temp 97.5 F L 12/01/16 23:52 Pulse 70 12/01/16 23:52 Resp 16 12/01/16 23:52 BP 111/76 12/01/16 23:52 Pulse Ox 99 12/02/16 04:31 - Medical History PMH: Anxiety, Asthma, Bipolar Disorder, Depression, Gastritis, Paranoia, Personality Disorder, Schizophrenia, Seizures, Chronic Pain (abd) Surgical History: No Surg Hx - [facility] Procedures APPLICATION OF SPLINT (04/09/14) CL FX REDUC-TIBIA/FIBULA (02/26/13) GROUP PSYCHOTHERAPY (07/30/16) INDIVID PSYCHOTHERAP NEC (12/17/13) INDIVIDUAL PSYCHOTHERAPY, BEHAVIORAL (01/29/16) INDIVIDUAL PSYCHOTHERAPY, COGNITIVE-BEHAVIORAL (07/30/16) INDIVIDUAL PSYCHOTHERAPY, SUPPORTIVE (07/22/16) MEDICATION MANAGEMENT (07/22/16) OTHER GROUP THERAPY (11/05/13) PSYCHIA INTERV/EVAL NEC (06/28/14) Family History: States: No Known Family Hx - Social History Hx Tobacco Use: Yes (heavy smoker) Hx Alcohol Use: No Hx Substance Use: No - Immunization History Hx Tetanus Toxoid Vaccination: No Hx Influenza Vaccination: Yes (2016) Hx Pneumococcal Vaccination: No Review Of Systems Constitutional: Negative for: Fever, Chills Gastrointestinal: Negative for: Nausea, Vomiting, Diarrhea Physical Exam - Physical Exam Appears: Non-toxic, No Acute Distress Skin: Warm, Dry Head: Normacephalic Oral Mucosa: Moist Chest: Symmetrical, No Tenderness Cardiovascular: Rhythm Regular, No Murmur Respiratory: No Rales, No Rhonchi, No Wheezing Gastrointestinal/Abdominal: Soft, No Tenderness Extremity: Normal ROM Neurological/Psych: Oriented x3, Normal Speech, Normal Cognition ED Course And Treatment O2 Sat by Pulse Oximetry: 99 Pulse Ox Interpretation: Normal ED OBSERVATION Discharge: Yes Date of observation admission: 12/02/16 Time of observation admission: 00:00 - Observation admission statement Patient is being placed in observation because:: homeless - Goals of Observation Goals of observation are:: social service - Progress Note Progress Note: 12/02/16 00:01 vitals stable 12/02/16 02:11 no complaints 12/02/16 04:31 vitals stable Disposition Counseled Patient/Family Regarding: Studies Performed, Diagnosis, Need For Followup - Disposition Disposition: HOME/ ROUTINE Disposition Time: 23:59 Condition: FAIR - Clinical Impression Clinical Impression: Schizophrenia - Scribe Statement The provider has reviewed the documentation as recorded by the Madhavibalexis Gottlieb All medical record entries made by the Madhavibalexis were at my direction and personally dictated by me. I have reviewed the chart and agree that the record accurately reflects my personal performance of the history, physical exam, medical decision making, and the department course for this patient. I have also personally directed, reviewed, and agree with the discharge instructions and disposition.
[2016-12-02 05:40] VITALS: BP 115/75; PULSE 80; RESP 18; TEMP 98; O2SAT 100
== END 2016-12-02 05:15 | disposition home or self-care (01) ==
LOC: C.ER 23:48 → C.9OBSV 12-02
PROVIDERS: ADMIT Emergency Medicine; ATTEND Emergency Medicine
DX: F20.9 Schizophrenia, unspecified (principal); Z59.0 Homelessness; J45.909 Unspecified asthma, uncomplicated; F41.8 Other specified anxiety disorders; F31.9 Bipolar disorder, unspecified

== ENCOUNTER 2016-12-05 09:31 | Emergency (ER) | payer MEDICARE ==
[2016-12-05 09:31] VITALS: BMI 23.0
[2016-12-05 09:36] VITALS: BP 127/88; PULSE 89; RESP 18; TEMP 98; O2SAT 98
--- NOTE | 2016-12-05 10:10 | C.PDOC ---
History Of Present Illness 56 y/o male well known to ED presents with cc of vague non specific abdominal pain for 'a few days'. pt denies nausea, vomiting, fever and chills, no diarrhea. pt eating and drinking well. no other complaints. Time Seen by Provider: 12/05/16 09:53 Chief Complaint (Nursing): Abdominal Pain History Per: Patient Onset/Duration Of Symptoms: Days (3) Current Symptoms Are (Timing): Still Present Severity: Mild Location Of Pain/Discomfort: Epigastric Radiation Of Pain To:: None Quality Of Discomfort: Unable To Describe Associated Symptoms: denies: Nausea, Vomiting, Diarrhea, Loss Of Appetite Exacerbating Factors: None Alleviating Factors: None Past Medical History Reviewed: Historical Data, Nursing Documentation, Vital Signs Vital Signs: Last Vital Signs Temp 98 F 12/05/16 09:35 Pulse 89 12/05/16 09:35 Resp 18 12/05/16 09:35 BP 127/88 12/05/16 09:35 Pulse Ox 98 12/05/16 18:11 - Medical History PMH: Anxiety, Asthma, Bipolar Disorder, Depression, Gastritis, Paranoia, Personality Disorder, Schizophrenia, Seizures, Chronic Pain (abd) Denies: HIV, HTN, Chronic Kidney Disease, Sexually Transmitted Disease Surgical History: - [facility] Procedures APPLICATION OF SPLINT (04/09/14) CL FX REDUC-TIBIA/FIBULA (02/26/13) GROUP PSYCHOTHERAPY (07/30/16) INDIVID PSYCHOTHERAP NEC (12/17/13) INDIVIDUAL PSYCHOTHERAPY, BEHAVIORAL (01/29/16) INDIVIDUAL PSYCHOTHERAPY, COGNITIVE-BEHAVIORAL (07/30/16) INDIVIDUAL PSYCHOTHERAPY, SUPPORTIVE (07/22/16) MEDICATION MANAGEMENT (07/22/16) OTHER GROUP THERAPY (11/05/13) PSYCHIA INTERV/EVAL NEC (06/28/14) Family History: States: Unknown Family Hx - Social History Hx Tobacco Use: Yes (heavy smoker) Hx Alcohol Use: No Hx Substance Use: No - Immunization History Hx Tetanus Toxoid Vaccination: No Hx Influenza Vaccination: Yes (2016) Hx Pneumococcal Vaccination: No Review Of Systems Constitutional: Negative for: Fever, Chills Cardiovascular: Negative for: Chest Pain Respiratory: Negative for: Cough, Shortness of Breath Gastrointestinal: Positive for: Abdominal Pain. Negative for: Nausea, Vomiting , Diarrhea, Constipation Genitourinary: Negative for: Dysuria, Frequency Neurological: Negative for: Weakness, Numbness Physical Exam - Physical Exam Appears: Non-toxic, No Acute Distress Skin: Normal Color, Dry Head: Atraumatic, Normacephalic Neck: Normal ROM, No Midline Cervical Tenderness Chest: Symmetrical, No Deformity, No Tenderness Cardiovascular: Rhythm Regular, No Murmur Respiratory: Normal Breath Sounds, No Rales, No Rhonchi, No Stridor Gastrointestinal/Abdominal: Bowel Sounds, Soft, No Tenderness, No Distention, No Guarding, No Rebound Extremity: Normal ROM, No Tenderness, No Pedal Edema Neurological/Psych: Oriented x3, Normal Speech, Normal Cognition ED Course And Treatment O2 Sat by Pulse Oximetry: 98 Disposition Counseled Patient/Family Regarding: Diagnosis, Need For Followup - Disposition Referrals: [facility] [Outside] Disposition: HOME/ ROUTINE Disposition Time: 10:11 Condition: STABLE Additional Instructions: Please follow up in medical clinic. Return to ER for any worsening symptoms. Instructions: Acute Abdominal Pain (ED) Forms: [facility] (Japanese), General Discharge Instructions - Clinical Impression Clinical Impression: Abdominal pain
== END 2016-12-05 10:23 | disposition home or self-care (01) ==
LOC: C.ER 09:31
DX: R10.9 Unspecified abdominal pain (principal)

== ENCOUNTER 2016-12-05 21:43 | Emergency (ER) | payer MEDICARE ==
[2016-12-05 21:43] VITALS: BMI 23.0
[2016-12-05 21:51] VITALS: BP 119/82; PULSE 94; RESP 16; TEMP 98.3; O2SAT 96
--- NOTE | 2016-12-05 22:11 | C.PDOC ---
History Of Present Illness 56 year old male who presents to the ER requesting a place to spend the night. Patient is well known to the ER for malingering; has not physical complaints at this time. Time Seen by Provider: 12/05/16 22:09 Chief Complaint (Nursing): Psychiatric Evaluation History Per: Patient History/Exam Limitations: no limitations Onset/Duration Of Symptoms: Hrs Current Symptoms Are (Timing): Still Present Suicide/Self Injury Attempted (Context): None Associated Symptoms: denies: Depression, Suicidal Thoughts, Suicidal Plan Involuntary Hold By: None Recent travel outside of the [place]: No Past Medical History Reviewed: Historical Data, Nursing Documentation, Vital Signs Vital Signs: Last Vital Signs Temp 98.3 F 12/05/16 21:50 Pulse 94 H 12/05/16 21:50 Resp 16 12/05/16 21:50 BP 119/82 12/05/16 21:50 Pulse Ox 96 12/05/16 22:10 - Medical History PMH: Anxiety, Asthma, Bipolar Disorder, Depression, Gastritis, Paranoia, Personality Disorder, Schizophrenia, Seizures, Chronic Pain (abd) Surgical History: No Surg Hx - [facility] Procedures APPLICATION OF SPLINT (04/09/14) CL FX REDUC-TIBIA/FIBULA (02/26/13) GROUP PSYCHOTHERAPY (07/30/16) INDIVID PSYCHOTHERAP NEC (12/17/13) INDIVIDUAL PSYCHOTHERAPY, BEHAVIORAL (01/29/16) INDIVIDUAL PSYCHOTHERAPY, COGNITIVE-BEHAVIORAL (07/30/16) INDIVIDUAL PSYCHOTHERAPY, SUPPORTIVE (07/22/16) MEDICATION MANAGEMENT (07/22/16) OTHER GROUP THERAPY (11/05/13) PSYCHIA INTERV/EVAL NEC (06/28/14) Family History: States: Unknown Family Hx - Social History Hx Tobacco Use: Yes (heavy smoker) Hx Alcohol Use: No Hx Substance Use: No - Immunization History Hx Tetanus Toxoid Vaccination: No Hx Influenza Vaccination: Yes (2017) Hx Pneumococcal Vaccination: No Review Of Systems Constitutional: Negative for: Fever, Chills Gastrointestinal: Negative for: Nausea, Vomiting, Diarrhea Physical Exam - Physical Exam Appears: Non-toxic, No Acute Distress, Other (Disheveled) Skin: Normal Color, Warm, Dry Head: Atraumatic, Normacephalic Oral Mucosa: Moist Chest: Symmetrical, No Tenderness Cardiovascular: Rhythm Regular, No Murmur Respiratory: Normal Breath Sounds, No Rales, No Rhonchi, No Wheezing Gastrointestinal/Abdominal: Soft, No Tenderness Neurological/Psych: Oriented x3, Normal Speech, Normal Cognition ED Course And Treatment O2 Sat by Pulse Oximetry: 96 (Room air) Pulse Ox Interpretation: Normal Medical Decision Making Medical Decision Making: typical malingering, has a place to stay no acute issues tonight. Disposition Doctor Will See Patient In The: Office Counseled Patient/Family Regarding: Studies Performed, Diagnosis - Disposition Referrals: [facility] [Outside] [facility] [Outside] [facility] [Outside] Disposition: HOME/ ROUTINE Disposition Time: 22:10 Condition: GOOD Forms: General Discharge Instructions, [facility] (Yoruba) - Clinical Impression Clinical Impression: Schizophrenia, Malingering - Scribe Statement The provider has reviewed the documentation as recorded by the Scribalexis Gottlieb All medical record entries made by the Scribe were at my direction and personally dictated by me. I have reviewed the chart and agree that the record accurately reflects my personal performance of the history, physical exam, medical decision making, and the department course for this patient. I have also personally directed, reviewed, and agree with the discharge instructions and disposition.
== END 2016-12-05 22:16 | disposition home or self-care (01) ==
LOC: C.ER 21:43
DX: F20.9 Schizophrenia, unspecified (principal); Z76.5 Malingerer [conscious simulation]

== ENCOUNTER 2016-12-06 11:50 | Emergency (ER) | payer MEDICARE ==
[2016-12-06 11:56] VITALS: BP 111/79; PULSE 99; RESP 18; TEMP 98.1; O2SAT 99; BMI 23.7
--- NOTE | 2016-12-06 12:06 | C.PDOC ---
History Of Present Illness 56 year old male presents to the ED seeking a place to sleep. Patient came to ED last night for the same reason and denies any physical complaints, suicidal, or homicidal ideations. Time Seen by Provider: 12/06/16 12:02 Chief Complaint (Nursing): Abdominal Pain History Per: Patient History/Exam Limitations: no limitations Suicide/Self Injury Attempted (Context): None Severity: None Pain Scale Rating Of: 0 Associated Symptoms: denies: Suicidal Thoughts, Suicidal Plan Involuntary Hold By: None Recent travel outside of the [place]: No Additional History Per: Prior Records Past Medical History Reviewed: Historical Data, Nursing Documentation, Vital Signs Vital Signs: Last Vital Signs Temp 98.1 F 12/06/16 11:56 Pulse 99 H 12/06/16 11:56 Resp 18 12/06/16 11:56 BP 111/79 12/06/16 11:56 Pulse Ox 99 12/06/16 17:03 - Medical History PMH: Anxiety, Asthma, Bipolar Disorder, Depression, Gastritis, Paranoia, Personality Disorder, Schizophrenia, Seizures, Chronic Pain (abd) Surgical History: - [facility] Procedures APPLICATION OF SPLINT (04/09/14) CL FX REDUC-TIBIA/FIBULA (02/26/13) GROUP PSYCHOTHERAPY (07/30/16) INDIVID PSYCHOTHERAP NEC (12/17/13) INDIVIDUAL PSYCHOTHERAPY, BEHAVIORAL (01/29/16) INDIVIDUAL PSYCHOTHERAPY, COGNITIVE-BEHAVIORAL (07/30/16) INDIVIDUAL PSYCHOTHERAPY, SUPPORTIVE (07/22/16) MEDICATION MANAGEMENT (07/22/16) OTHER GROUP THERAPY (11/05/13) PSYCHIA INTERV/EVAL NEC (06/28/14) Family History: States: Unknown Family Hx - Social History Hx Tobacco Use: Yes (heavy smoker) Hx Alcohol Use: No Hx Substance Use: No - Immunization History Hx Tetanus Toxoid Vaccination: No Hx Influenza Vaccination: Yes (2017) Hx Pneumococcal Vaccination: No Review Of Systems Constitutional: Negative for: Fever, Chills Cardiovascular: Negative for: Chest Pain Respiratory: Negative for: Shortness of Breath Gastrointestinal: Negative for: Nausea, Vomiting, Abdominal Pain, Diarrhea Physical Exam - Physical Exam Appears: Non-toxic, No Acute Distress Skin: Warm, Dry Head: Atraumatic Eye(s): bilateral: Normal Inspection Oral Mucosa: Moist Neck: Supple Chest: Symmetrical Cardiovascular: Rhythm Regular Respiratory: Normal Breath Sounds, No Rales, No Rhonchi, No Wheezing Gastrointestinal/Abdominal: Soft, No Tenderness, No Distention, No Guarding, No Rebound Extremity: Normal ROM, No Tenderness Neurological/Psych: Oriented x3, Normal Speech, Normal Cognition ED Course And Treatment O2 Sat by Pulse Oximetry: 99 (room air ) Medical Decision Making Medical Decision Making: typical malingering, no acute issues. Disposition Doctor Will See Patient In The: Office Counseled Patient/Family Regarding: Studies Performed, Diagnosis - Disposition Referrals: [facility] [Outside] [facility] [Outside] [facility] [Outside] Disposition: HOME/ ROUTINE Disposition Time: 12:05 Condition: GOOD Additional Instructions: seek nightly [facility] placment Forms: Gen Discharge Inst Tuvaluan, [facility] (Sinhala) - Clinical Impression Clinical Impression: Malingering - Scribe Statement The provider has reviewed the documentation as recorded by the Scribe Sujatha Ralph All medical record entries made by the Scribe were at my direction and personally dictated by me. I have reviewed the chart and agree that the record accurately reflects my personal performance of the history, physical exam, medical decision making, and the department course for this patient. I have also personally directed, reviewed, and agree with the discharge instructions and disposition.
== END 2016-12-06 12:18 | disposition home or self-care (01) ==
LOC: C.ER 11:50
DX: Z76.5 Malingerer [conscious simulation] (principal)

== ENCOUNTER 2016-12-14 02:31 | Observation (INO) | payer MEDICARE ==
[2016-12-14 02:32] VITALS: BMI 23.7
[2016-12-14 02:43] VITALS: RESP 14
--- NOTE | 2016-12-14 02:43 | C.PDOC ---
History Of Present Illness Patient presents to the ER requesting a place to stay the night. Denies physical complaints at this time. Time Seen by Provider: 12/14/16 02:42 Chief Complaint (Nursing): Abdominal Pain History Per: Patient History/Exam Limitations: no limitations Onset/Duration Of Symptoms: Hrs Current Symptoms Are (Timing): Still Present Severity: None Pain Scale Rating Of: 0 Associated Symptoms: denies: Fever, Chills, Nausea, Vomiting Recent travel outside of the [place]: No Past Medical History Reviewed: Historical Data, Nursing Documentation, Vital Signs Vital Signs: Last Vital Signs Temp 98 F 12/14/16 02:40 Pulse 80 12/14/16 02:40 Resp 14 12/14/16 02:40 BP 100/65 12/14/16 02:40 Pulse Ox 99 12/14/16 02:40 - Medical History PMH: Anxiety, Asthma, Bipolar Disorder, Depression, Gastritis, Paranoia, Personality Disorder, Schizophrenia, Seizures, Chronic Pain (abd) Surgical History: No Surg Hx - [facility] Procedures APPLICATION OF SPLINT (04/09/14) CL FX REDUC-TIBIA/FIBULA (02/26/13) GROUP PSYCHOTHERAPY (07/30/16) INDIVID PSYCHOTHERAP NEC (12/17/13) INDIVIDUAL PSYCHOTHERAPY, BEHAVIORAL (01/29/16) INDIVIDUAL PSYCHOTHERAPY, COGNITIVE-BEHAVIORAL (07/30/16) INDIVIDUAL PSYCHOTHERAPY, SUPPORTIVE (07/22/16) MEDICATION MANAGEMENT (07/22/16) OTHER GROUP THERAPY (11/05/13) PSYCHIA INTERV/EVAL NEC (06/28/14) Family History: States: Unknown Family Hx - Social History Hx Tobacco Use: Yes (heavy smoker) Hx Alcohol Use: No Hx Substance Use: No - Immunization History Hx Tetanus Toxoid Vaccination: No Hx Influenza Vaccination: Yes (2017) Hx Pneumococcal Vaccination: No Review Of Systems Constitutional: Negative for: Fever, Chills Gastrointestinal: Negative for: Nausea, Vomiting, Diarrhea Physical Exam - Physical Exam Appears: Non-toxic Skin: Warm, Dry Oral Mucosa: Moist Chest: Symmetrical Cardiovascular: Rhythm Regular Respiratory: No Rales, No Rhonchi, No Wheezing Gastrointestinal/Abdominal: Soft, No Tenderness Neurological/Psych: Oriented x3 ED Course And Treatment O2 Sat by Pulse Oximetry: 99 Pulse Ox Interpretation: Normal ED OBSERVATION Discharge: Yes Date of observation admission: 12/14/16 Time of observation admission: 02:43 - Observation admission statement Patient is being placed in observation because:: schizophrenia - Progress Note Progress Note: 12/14/16 02:43 vitals stable Disposition Counseled Patient/Family Regarding: Studies Performed, Diagnosis, Need For Followup - Disposition Disposition: HOME/ ROUTINE Disposition Time: 02:42 Condition: FAIR - Clinical Impression Clinical Impression: Schizophrenia - Scribe Statement The provider has reviewed the documentation as recorded by the Scribalexis Gottlieb All medical record entries made by the Madhavibalexis were at my direction and personally dictated by me. I have reviewed the chart and agree that the record accurately reflects my personal performance of the history, physical exam, medical decision making, and the department course for this patient. I have also personally directed, reviewed, and agree with the discharge instructions and disposition.
[2016-12-14 05:51] VITALS: BP 120/80; PULSE 70; TEMP 97.5; O2SAT 97
== END 2016-12-14 05:28 | disposition home or self-care (01) ==
LOC: C.ER 02:31 → C.9OBSV 02:43
PROVIDERS: ADMIT Emergency Medicine; ATTEND Emergency Medicine
DX: F20.9 Schizophrenia, unspecified (principal); J45.909 Unspecified asthma, uncomplicated; F17.200 Nicotine dependence, unspecified, uncomplicated
CPT/HCPCS: 99283; G0378

== ENCOUNTER 2017-01-08 00:27 | Emergency (ER) | payer MEDICARE ==
[2017-01-08 00:27] VITALS: BMI 23.7
[2017-01-08 00:39] VITALS: RESP 16; O2SAT 100
--- NOTE | 2017-01-08 00:48 | C.PDOC ---
History Of Present Illness Patient is a 57 y/o male who presents to the ED with complaints of abdominal pain and feeling hungry. Patient is a frequent visitor to the ED. Denies fever or chills. No other complaints at this time. Time Seen by Provider: 01/08/17 00:48 Chief Complaint (Nursing): Abdominal Pain History Per: Patient History/Exam Limitations: no limitations Onset/Duration Of Symptoms: Hrs Current Symptoms Are (Timing): Still Present Associated Symptoms: denies: Fever, Chills Recent travel outside of the [place]: No Past Medical History Reviewed: Historical Data, Nursing Documentation, Vital Signs Vital Signs: Last Vital Signs Temp 97.6 F 01/08/17 00:33 Pulse 80 01/08/17 00:33 Resp 16 01/08/17 00:33 BP 115/81 01/08/17 00:33 Pulse Ox 100 01/08/17 01:29 - Medical History PMH: Anxiety, Asthma, Bipolar Disorder, Depression, Gastritis, Paranoia, Personality Disorder, Schizophrenia, Seizures, Chronic Pain (abd) Denies: HIV, HTN, Chronic Kidney Disease, Sexually Transmitted Disease Surgical History: No Surg Hx - [facility] Procedures APPLICATION OF SPLINT (04/09/14) CL FX REDUC-TIBIA/FIBULA (02/26/13) GROUP PSYCHOTHERAPY (07/30/16) INDIVID PSYCHOTHERAP NEC (12/17/13) INDIVIDUAL PSYCHOTHERAPY, BEHAVIORAL (01/29/16) INDIVIDUAL PSYCHOTHERAPY, COGNITIVE-BEHAVIORAL (07/30/16) INDIVIDUAL PSYCHOTHERAPY, SUPPORTIVE (07/22/16) MEDICATION MANAGEMENT (07/22/16) OTHER GROUP THERAPY (11/05/13) PSYCHIA INTERV/EVAL NEC (06/28/14) Family History: States: Unknown Family Hx - Social History Hx Tobacco Use: Yes (heavy smoker) Hx Alcohol Use: No Hx Substance Use: No - Immunization History Hx Tetanus Toxoid Vaccination: No Hx Influenza Vaccination: No (2016) Hx Pneumococcal Vaccination: No Review Of Systems Constitutional: Negative for: Fever, Chills Gastrointestinal: Positive for: Abdominal Pain Physical Exam - Physical Exam Appears: Well, Non-toxic Skin: Warm, Dry Head: Normacephalic Oral Mucosa: Moist Chest: Symmetrical Cardiovascular: Rhythm Regular, No Murmur Respiratory: No Rales, No Rhonchi, No Wheezing Gastrointestinal/Abdominal: Soft, No Tenderness ED Course And Treatment O2 Sat by Pulse Oximetry: 100 (room air) Pulse Ox Interpretation: Normal Reevaluation Time: 05:06 Reassessment Condition: Improved Disposition Counseled Patient/Family Regarding: Studies Performed, Diagnosis, Need For Followup - Disposition Referrals: [facility] [Outside] Disposition: HOME/ ROUTINE Disposition Time: 00:48 Condition: FAIR Forms: [facility] (Maori) - Clinical Impression Clinical Impression: Schizophrenia - Scribe Statement The provider has reviewed the documentation as recorded by the Scribe Muna Winn All medical record entries made by the Scribe were at my direction and personally dictated by me. I have reviewed the chart and agree that the record accurately reflects my personal performance of the history, physical exam, medical decision making, and the department course for this patient. I have also personally directed, reviewed, and agree with the discharge instructions and disposition.
[2017-01-08 05:27] VITALS: BP 144/83; PULSE 55; TEMP 98.3
== END 2017-01-08 05:25 | disposition home or self-care (01) ==
LOC: C.ER 00:27
DX: F20.9 Schizophrenia, unspecified (principal)

== ENCOUNTER 2017-01-21 22:01 | Emergency (ER) | payer MEDICARE ==
[2017-01-21 22:01] VITALS: BMI 23.7
[2017-01-21 22:49] VITALS: BP 124/77; PULSE 86; RESP 20; TEMP 97.9; O2SAT 100
--- NOTE | 2017-01-21 23:07 | C.PDOC ---
History Of Present Illness 57 year old male presents to the ED for evaluation of abdominal discomfort which began earlier today. Patient states he ate a large sandwich prior to the onset of his symptoms. Patient still requests another sandwich in the ED. Otherwise, he denies fever, chills, and has no other complaints at this time. Time Seen by Provider: 01/21/17 22:54 Chief Complaint (Nursing): Medical Clearance History Per: Patient History/Exam Limitations: no limitations Onset/Duration Of Symptoms: Hrs Current Symptoms Are (Timing): Still Present Additional History Per: Patient Past Medical History Reviewed: Historical Data, Nursing Documentation, Vital Signs Vital Signs: Last Vital Signs Temp 97.9 F 01/21/17 22:42 Pulse 86 01/21/17 22:42 Resp 20 01/21/17 22:42 BP 124/77 01/21/17 22:42 Pulse Ox 100 01/22/17 03:34 - Medical History PMH: Anxiety, Asthma, Bipolar Disorder, Depression, Gastritis, Paranoia, Personality Disorder, Schizophrenia, Seizures, Chronic Pain (abd) Denies: HIV, HTN, Chronic Kidney Disease, Sexually Transmitted Disease Surgical History: No Surg Hx - [facility] Procedures APPLICATION OF SPLINT (04/09/14) CL FX REDUC-TIBIA/FIBULA (02/26/13) GROUP PSYCHOTHERAPY (07/30/16) INDIVID PSYCHOTHERAP NEC (12/17/13) INDIVIDUAL PSYCHOTHERAPY, BEHAVIORAL (01/29/16) INDIVIDUAL PSYCHOTHERAPY, COGNITIVE-BEHAVIORAL (07/30/16) INDIVIDUAL PSYCHOTHERAPY, SUPPORTIVE (07/22/16) MEDICATION MANAGEMENT (07/22/16) OTHER GROUP THERAPY (11/05/13) PSYCHIA INTERV/EVAL NEC (06/28/14) Family History: States: Unknown Family Hx - Social History Hx Tobacco Use: Yes (heavy smoker) Hx Alcohol Use: No Hx Substance Use: No - Immunization History Hx Tetanus Toxoid Vaccination: No Hx Influenza Vaccination: No (2017) Hx Pneumococcal Vaccination: No Review Of Systems Constitutional: Negative for: Fever, Chills Gastrointestinal: Positive for: Other (abdominal discomfort) Physical Exam - Physical Exam Appears: Non-toxic, No Acute Distress Skin: Normal Color, Warm, Dry Head: Atraumatic, Normacephalic Eye(s): bilateral: Normal Inspection Oral Mucosa: Moist Neck: Supple Chest: Symmetrical, No Deformity, No Tenderness Cardiovascular: Rhythm Regular, No Murmur Respiratory: Normal Breath Sounds Gastrointestinal/Abdominal: Soft, No Tenderness, No Guarding, No Rebound Extremity: Normal ROM, Capillary Refill (less than 2 seconds ) Neurological/Psych: Oriented x3, Normal Speech, Normal Cognition Gait: Steady ED Course And Treatment O2 Sat by Pulse Oximetry: 100 (on RA) Pulse Ox Interpretation: Normal Progress Note: Pt is currently asymptomatic, walking around in the ED in NAD, will follw up with PMD Disposition Counseled Patient/Family Regarding: Diagnosis, Need For Followup, Rx Given - Disposition Disposition: HOME/ ROUTINE Disposition Time: 23:05 Condition: STABLE Additional Instructions: Please follow up in clinic Return to ER if worse Forms: [facility] (Salvadorean), General Discharge Instructions - Clinical Impression Clinical Impression: Encounter for medical assessment - PA / [employer] / Resident Statement MD/DO has reviewed & agrees with the documentation as recorded. - Scribe Statement The provider has reviewed the documentation as recorded by the Scribe (Rosi Chow) All medical record entries made by the Scribe were at my direction and personally dictated by me. I have reviewed the chart and agree that the record accurately reflects my personal performance of the history, physical exam, medical decision making, and the department course for this patient. I have also personally directed, reviewed, and agree with the discharge instructions and disposition.
== END 2017-01-21 23:12 | disposition home or self-care (01) ==
LOC: C.ER 22:01
DX: Z00.00 Encounter for general adult medical examination without abnormal findings (principal)

== ENCOUNTER 2017-01-23 00:15 | Emergency (ER) | payer MEDICARE ==
[2017-01-23 00:15] VITALS: BMI 23.7
--- NOTE | 2017-01-23 00:41 | C.PDOC ---
Time Seen by Provider: 01/23/17 00:40 Chief Complaint (Nursing): Psychiatric Evaluation Past Medical History Vital Signs: Last Vital Signs Temp 97.9 F 01/23/17 00:25 Pulse 77 01/23/17 00:25 Resp 18 01/23/17 00:25 BP 124/82 01/23/17 00:25 Pulse Ox 99 01/23/17 00:41 - Medical History PMH: Anxiety, Asthma, Bipolar Disorder, Depression, Gastritis, Paranoia, Personality Disorder, Schizophrenia, Seizures, Chronic Pain (abd) Denies: HIV, HTN, Chronic Kidney Disease, Sexually Transmitted Disease Surgical History: - [facility] Procedures APPLICATION OF SPLINT (04/09/14) CL FX REDUC-TIBIA/FIBULA (02/26/13) GROUP PSYCHOTHERAPY (07/30/16) INDIVID PSYCHOTHERAP NEC (12/17/13) INDIVIDUAL PSYCHOTHERAPY, BEHAVIORAL (01/29/16) INDIVIDUAL PSYCHOTHERAPY, COGNITIVE-BEHAVIORAL (07/30/16) INDIVIDUAL PSYCHOTHERAPY, SUPPORTIVE (07/22/16) MEDICATION MANAGEMENT (07/22/16) OTHER GROUP THERAPY (11/05/13) PSYCHIA INTERV/EVAL NEC (06/28/14) Family History: States: Unknown Family Hx - Social History Hx Tobacco Use: Yes (heavy smoker) Hx Alcohol Use: No Hx Substance Use: No - Immunization History Hx Tetanus Toxoid Vaccination: No Hx Influenza Vaccination: No (2016) Hx Pneumococcal Vaccination: No ED Course And Treatment O2 Sat by Pulse Oximetry: 99 Disposition - Disposition Referrals: YOUR,P[facility] [Other] Disposition: HOME/ ROUTINE Condition: GOOD Instructions: Chronic Pain (ED) Forms: [facility] (Danish) - Clinical Impression Clinical Impression: Malingerer, Abdominal pain, chronic, epigastric
--- NOTE | 2017-01-23 00:41 | C.PDOC ---
History Of Present Illness 52 year old male presents to the ED for evaluation of abdominal discomfort which began earlier today. Patient is familiar to this ED and has had multiple prior visits concerning abdominal discomfort. Patient is also requesting a place to sleep for the night. He denies any other complaints at this time. Time Seen by Provider: 01/23/17 00:40 Chief Complaint (Nursing): Psychiatric Evaluation History Per: Patient History/Exam Limitations: no limitations Onset/Duration Of Symptoms: Hrs Current Symptoms Are (Timing): Still Present Location Of Pain/Discomfort: Diffuse Radiation Of Pain To:: None Associated Symptoms: denies: Fever, Chills, Nausea, Vomiting Additional History Per: Patient Past Medical History Reviewed: Historical Data, Nursing Documentation, Vital Signs Vital Signs: Last Vital Signs Temp 97.9 F 01/23/17 00:25 Pulse 77 01/23/17 00:25 Resp 18 01/23/17 00:25 BP 124/82 01/23/17 00:25 Pulse Ox 99 01/23/17 00:52 - Medical History PMH: Anxiety, Asthma, Bipolar Disorder, Depression, Gastritis, Paranoia, Personality Disorder, Schizophrenia, Seizures, Chronic Pain (abd) Denies: HIV, HTN, Chronic Kidney Disease, Sexually Transmitted Disease Surgical History: No Surg Hx - [facility] Procedures APPLICATION OF SPLINT (04/09/14) CL FX REDUC-TIBIA/FIBULA (02/26/13) GROUP PSYCHOTHERAPY (07/30/16) INDIVID PSYCHOTHERAP NEC (12/17/13) INDIVIDUAL PSYCHOTHERAPY, BEHAVIORAL (01/29/16) INDIVIDUAL PSYCHOTHERAPY, COGNITIVE-BEHAVIORAL (07/30/16) INDIVIDUAL PSYCHOTHERAPY, SUPPORTIVE (07/22/16) MEDICATION MANAGEMENT (07/22/16) OTHER GROUP THERAPY (11/05/13) PSYCHIA INTERV/EVAL NEC (06/28/14) Family History: States: Unknown Family Hx - Social History Hx Tobacco Use: Yes (heavy smoker) Hx Alcohol Use: No Hx Substance Use: No - Immunization History Hx Tetanus Toxoid Vaccination: No Hx Influenza Vaccination: No (2017) Hx Pneumococcal Vaccination: No Review Of Systems Gastrointestinal: Positive for: Other (abdominal discomfort ) Physical Exam - Physical Exam Appears: Non-toxic, No Acute Distress Skin: Normal Color, Warm, Dry Eye(s): bilateral: Normal Inspection Oral Mucosa: Moist Neck: Supple Chest: Symmetrical, No Deformity, No Tenderness Cardiovascular: Rhythm Regular Respiratory: Normal Breath Sounds Gastrointestinal/Abdominal: Soft, No Tenderness, No Guarding, No Rebound Extremity: Normal ROM, Capillary Refill (less than 2 seconds ) Neurological/Psych: Oriented x3, Normal Speech, Normal Cognition Gait: Steady ED Course And Treatment O2 Sat by Pulse Oximetry: 99 (on RA) Pulse Ox Interpretation: Normal Disposition Counseled Patient/Family Regarding: Diagnosis, Need For Followup - Disposition Referrals: YOUR,P[facility] [Other] Disposition: HOME/ ROUTINE Disposition Time: 00:40 Condition: GOOD Instructions: Chronic Pain (ED) Forms: [facility] (Uzbek) - Clinical Impression Clinical Impression: Malingerer, Abdominal pain, chronic, epigastric - Scribe Statement The provider has reviewed the documentation as recorded by the Scribe (Rosi Chow) Provider Attestation: All medical record entries made by the Scribe were at my direction and personally dictated by me. I have reviewed the chart and agree that the record accurately reflects my personal performance of the history, physical exam, medical decision making, and the department course for this patient. I have also personally directed, reviewed, and agree with the discharge instructions and disposition.
[2017-01-23 01:09] VITALS: BP 120/78; PULSE 72; RESP 20; TEMP 98; O2SAT 98
== END 2017-01-23 01:08 | disposition home or self-care (01) ==
LOC: C.ER 00:15
DX: Z76.5 Malingerer [conscious simulation] (principal); G89.29 Other chronic pain; R10.13 Epigastric pain

== ENCOUNTER 2017-02-02 02:18 | Emergency (ER) | payer MEDICARE ==
[2017-02-02 02:18] VITALS: BMI 23.7
--- NOTE | 2017-02-02 03:26 | C.PDOC ---
History Of Present Illness 57 year old male presents to the ER with a complaint of pain to the bilateral hands. Denies recent trauma or injury. Time Seen by Provider: 02/02/17 02:52 Chief Complaint (Nursing): Finger,Hand,&Wrist History Per: Patient History/Exam Limitations: no limitations Onset/Duration Of Symptoms: Days Current Symptoms Are (Timing): Still Present Exacerbating Factor(s): Nothing Recent travel outside of the [place]: No Past Medical History Reviewed: Historical Data, Nursing Documentation, Vital Signs Vital Signs: Last Vital Signs Temp 97.5 F L 02/02/17 02:39 Pulse 71 02/02/17 02:39 Resp 17 02/02/17 02:39 BP 133/99 H 02/02/17 02:39 Pulse Ox - Medical History PMH: Anxiety, Asthma, Bipolar Disorder, Depression, Gastritis, Paranoia, Personality Disorder, Schizophrenia, Seizures, Chronic Pain (abd) Surgical History: No Surg Hx - [facility] Procedures APPLICATION OF SPLINT (04/09/14) CL FX REDUC-TIBIA/FIBULA (02/26/13) GROUP PSYCHOTHERAPY (07/30/16) INDIVID PSYCHOTHERAP NEC (12/17/13) INDIVIDUAL PSYCHOTHERAPY, BEHAVIORAL (01/29/16) INDIVIDUAL PSYCHOTHERAPY, COGNITIVE-BEHAVIORAL (07/30/16) INDIVIDUAL PSYCHOTHERAPY, SUPPORTIVE (07/22/16) MEDICATION MANAGEMENT (07/22/16) OTHER GROUP THERAPY (11/05/13) PSYCHIA INTERV/EVAL NEC (06/28/14) Family History: States: Unknown Family Hx - Social History Hx Tobacco Use: Yes (heavy smoker) Hx Alcohol Use: No Hx Substance Use: No - Immunization History Hx Tetanus Toxoid Vaccination: No Hx Influenza Vaccination: No (2016) Hx Pneumococcal Vaccination: No Review Of Systems Constitutional: Negative for: Fever Skin: Negative for: Rash Neurological: Negative for: Weakness, Numbness Physical Exam - Physical Exam Appears: Non-toxic, No Acute Distress Skin: Normal Color, Warm, Dry Head: Atraumatic, Normacephalic Extremity: Normal ROM (x4), No Tenderness, No Deformity, No Swelling, Other ( Callus to palmar aspect of bilateral hands. Nonerythematous, no swelling, no warmth, no fluctuance.) Pulses: Left Radial: Normal, Right Radial: Normal Neurological/Psych: Oriented x3, Normal Speech, Normal Cognition, Normal Motor, Normal Sensation ED Course And Treatment Progress Note: Patient refuses pain medications at this time and advised to follow up with PMD for futher evaluation. Disposition Counseled Patient/Family Regarding: Diagnosis, Need For Followup - Disposition Referrals: [facility] [Outside] Disposition: HOME/ ROUTINE Disposition Time: 03:24 Condition: STABLE Additional Instructions: Please follow up in clinic Tylenol or advil for pain Return to ER if worse Forms: [facility] (Ecuadorean), General Discharge Instructions - Clinical Impression Clinical Impression: Skin callus - Scribe Statement The provider has reviewed the documentation as recorded by the Scribe Howard Gottlieb All medical record entries made by the Madhavibalexis were at my direction and personally dictated by me. I have reviewed the chart and agree that the record accurately reflects my personal performance of the history, physical exam, medical decision making, and the department course for this patient. I have also personally directed, reviewed, and agree with the discharge instructions and disposition.
[2017-02-02 05:06] VITALS: BP 129/83; PULSE 81; RESP 18; TEMP 98.3; O2SAT 98
== END 2017-02-02 05:07 | disposition home or self-care (01) ==
LOC: C.ER 02:18
DX: L84 Corns and callosities (principal)

== ENCOUNTER 2017-02-03 19:52 | Emergency (ER) | payer MEDICARE ==
[2017-02-03 19:52] VITALS: BMI 23.7
[2017-02-03] MEDS ORDERED: Alum-Mag Hydrox-Simethicone Susp (30 mL) PO STA (20:55)
[2017-02-03] MEDS ORDERED: Alum-Mag Hydrox-Simethicone Susp (30 mL) ONE (21:01)
--- NOTE | 2017-02-03 23:45 | C.PDOC ---
History Of Present Illness Pt with h/o Schizophrenia and frequent ED visits and very well know to this ED is here at baseline symptoms. Time Seen by Provider: 02/03/17 20:32 Chief Complaint (Nursing): Medical Clearance History Per: Patient Onset/Duration Of Symptoms: Unknown Current Symptoms Are (Timing): Still Present Severity: Mild Reports Recently: Seen In ED Additional History Per: Prior Records Past Medical History Reviewed: Historical Data, Nursing Documentation, Vital Signs Vital Signs: Last Vital Signs Temp 98.2 F 02/03/17 20:15 Pulse 117 H 02/03/17 20:15 Resp 16 02/03/17 20:15 BP 115/73 02/03/17 20:15 Pulse Ox 99 02/03/17 23:45 - Medical History PMH: Anxiety, Asthma, Bipolar Disorder, Depression, Gastritis, Paranoia, Personality Disorder, Schizophrenia, Seizures, Chronic Pain (abd) Surgical History: - [facility] Procedures APPLICATION OF SPLINT (04/09/14) CL FX REDUC-TIBIA/FIBULA (02/26/13) GROUP PSYCHOTHERAPY (07/30/16) INDIVID PSYCHOTHERAP NEC (12/17/13) INDIVIDUAL PSYCHOTHERAPY, BEHAVIORAL (01/29/16) INDIVIDUAL PSYCHOTHERAPY, COGNITIVE-BEHAVIORAL (07/30/16) INDIVIDUAL PSYCHOTHERAPY, SUPPORTIVE (07/22/16) MEDICATION MANAGEMENT (07/22/16) OTHER GROUP THERAPY (11/05/13) PSYCHIA INTERV/EVAL NEC (06/28/14) Family History: States: Unknown Family Hx - Social History Hx Tobacco Use: Yes (heavy smoker) Hx Alcohol Use: No Hx Substance Use: No - Immunization History Hx Tetanus Toxoid Vaccination: No Hx Influenza Vaccination: Yes (2016) Hx Pneumococcal Vaccination: Yes Review Of Systems Constitutional: Negative for: Fever Cardiovascular: Negative for: Chest Pain Gastrointestinal: Positive for: Abdominal Pain (?). Negative for: Vomiting Musculoskeletal: Negative for: Neck Pain Neurological: Negative for: Weakness, Numbness, Seizures Psych: Negative for: Suicidal ideation Physical Exam - Physical Exam Appears: Non-toxic, No Acute Distress Skin: Normal Color, Warm, Dry Head: Atraumatic, Normacephalic Eye(s): bilateral: PERRL Neck: Normal ROM, Supple Cardiovascular: Rhythm Regular Respiratory: Normal Breath Sounds, No Accessory Muscle Use Gastrointestinal/Abdominal: Soft, No Tenderness, No Distention Back: No CVA Tenderness Extremity: Normal ROM Neurological/Psych: Oriented x3, Normal Motor, Normal Sensation Gait: Steady ED Course And Treatment O2 Sat by Pulse Oximetry: 99 Pulse Ox Interpretation: Normal Progress Note: Pt ate a sandwich in the ED without any difficulty. No vomiting. Pt is sleeping. Reassessment Condition: Improved Disposition Counseled Patient/Family Regarding: Diagnosis, Need For Followup, Smoking Cessation - Disposition Referrals: [facility] [Outside] Disposition: HOME/ ROUTINE Disposition Time: 23:49 Condition: IMPROVED Additional Instructions: Follow up in the clinic. Return to the ER if you develop fever, vomiting, suicidal or homicidal thoughts, worsening of symptoms or if you have any other concerns. Instructions: Schizophrenia (ED) Forms: [facility] (Yakut) - Clinical Impression Clinical Impression: Schizophrenia
[2017-02-03 23:59] VITALS: BP 105/65; PULSE 87; RESP 18; TEMP 97.9; O2SAT 98
== END 2017-02-04 00:10 | disposition home or self-care (01) ==
LOC: C.ER 19:52
DX: F20.9 Schizophrenia, unspecified (principal); Z87.891 Personal history of nicotine dependence

== ENCOUNTER 2017-02-12 04:27 | Emergency (ER) | payer MEDICARE ==
[2017-02-12 04:27] VITALS: BMI 23.7
[2017-02-12 04:56] VITALS: BP 115/80; PULSE 89; RESP 16; TEMP 97.6; O2SAT 98
--- NOTE | 2017-02-12 05:06 | C.PDOC ---
History Of Present Illness 57 y/o male presents to ER requesting a sandwich to eat and a bed to rest for a little while. Pt is a frequent visitor of [facility] and denies any other symptoms at this time. Time Seen by Provider: 02/12/17 05:02 Chief Complaint (Nursing): Medical Clearance History Per: Patient History/Exam Limitations: no limitations Reports Recently: Seen In ED Past Medical History Vital Signs: Last Vital Signs Temp 97.6 F 02/12/17 04:52 Pulse 89 02/12/17 04:52 Resp 16 02/12/17 04:52 BP 115/80 02/12/17 04:52 Pulse Ox 98 02/12/17 04:52 - Medical History PMH: Anxiety, Asthma, Bipolar Disorder, Depression, Gastritis, Paranoia, Personality Disorder, Schizophrenia, Seizures, Chronic Pain (abd) Denies: HIV, HTN, Chronic Kidney Disease, Sexually Transmitted Disease Surgical History: - [facility] Procedures APPLICATION OF SPLINT (04/09/14) CL FX REDUC-TIBIA/FIBULA (02/26/13) GROUP PSYCHOTHERAPY (07/30/16) INDIVID PSYCHOTHERAP NEC (12/17/13) INDIVIDUAL PSYCHOTHERAPY, BEHAVIORAL (01/29/16) INDIVIDUAL PSYCHOTHERAPY, COGNITIVE-BEHAVIORAL (07/30/16) INDIVIDUAL PSYCHOTHERAPY, SUPPORTIVE (07/22/16) MEDICATION MANAGEMENT (07/22/16) OTHER GROUP THERAPY (11/05/13) PSYCHIA INTERV/EVAL NEC (06/28/14) Family History: States: Unknown Family Hx - Social History Hx Tobacco Use: Yes (heavy smoker) Hx Alcohol Use: No Hx Substance Use: No - Immunization History Hx Tetanus Toxoid Vaccination: No Hx Influenza Vaccination: Yes (2016) Hx Pneumococcal Vaccination: Yes Review Of Systems Constitutional: Negative for: Fever Eyes: Negative for: Vision Change Respiratory: Negative for: Cough, Shortness of Breath Gastrointestinal: Negative for: Abdominal Pain Neurological: Negative for: Weakness, Numbness Physical Exam - Physical Exam Appears: Well, Non-toxic Head: Atraumatic Eye(s): bilateral: Normal Inspection Oral Mucosa: Moist Neck: Normal, Supple Cardiovascular: Rhythm Regular Respiratory: Normal Breath Sounds, No Wheezing Gastrointestinal/Abdominal: Soft, No Tenderness Back: Normal Inspection Neurological/Psych: Oriented x3, Normal Motor, Normal Sensation Gait: Steady ED Course And Treatment O2 Sat by Pulse Oximetry: 98 Progress Note: Pt was given cereal which he ate, requesting a sandwich as well. Pt in NAD, will d/c with follow up Disposition Counseled Patient/Family Regarding: Diagnosis, Need For Followup - Disposition Referrals: [facility] [Outside] Disposition: HOME/ ROUTINE Disposition Time: 05:07 Condition: STABLE Additional Instructions: Please follow up in clinic or with your doctor Forms: [facility] (Persian), General Discharge Instructions - Clinical Impression Clinical Impression: Normal exam
== END 2017-02-12 05:21 | disposition home or self-care (01) ==
LOC: C.ER 04:27
DX: Z00.00 Encounter for general adult medical examination without abnormal findings (principal)

== ENCOUNTER 2017-02-15 00:33 | Emergency (ER) | payer MEDICARE ==
[2017-02-15 00:33] VITALS: BMI 23.7
--- NOTE | 2017-02-15 00:50 | C.PDOC ---
History Of Present Illness Patient presents to the ER requesting a place to spend the night. Denies physical complaints at this time. Time Seen by Provider: 02/15/17 00:49 Chief Complaint (Nursing): Psychiatric Evaluation History Per: Patient History/Exam Limitations: no limitations Onset/Duration Of Symptoms: Hrs Current Symptoms Are (Timing): Still Present Suicide/Self Injury Attempted (Context): None Modifying Factor(s): None Associated Symptoms: denies: Depression, Suicidal Thoughts, Suicidal Plan Involuntary Hold By: None Recent travel outside of the [place]: No Past Medical History Reviewed: Historical Data, Nursing Documentation, Vital Signs Vital Signs: Last Vital Signs Temp 97.4 F L 02/15/17 00:37 Pulse 70 02/15/17 00:37 Resp 16 02/15/17 00:37 BP 127/76 02/15/17 00:37 Pulse Ox 97 02/15/17 00:58 - Medical History PMH: Anxiety, Asthma, Bipolar Disorder, Depression, Gastritis, Paranoia, Personality Disorder, Schizophrenia, Seizures, Chronic Pain (abd) Surgical History: No Surg Hx - [facility] Procedures APPLICATION OF SPLINT (04/09/14) CL FX REDUC-TIBIA/FIBULA (02/26/13) GROUP PSYCHOTHERAPY (07/30/16) INDIVID PSYCHOTHERAP NEC (12/17/13) INDIVIDUAL PSYCHOTHERAPY, BEHAVIORAL (01/29/16) INDIVIDUAL PSYCHOTHERAPY, COGNITIVE-BEHAVIORAL (07/30/16) INDIVIDUAL PSYCHOTHERAPY, SUPPORTIVE (07/22/16) MEDICATION MANAGEMENT (07/22/16) OTHER GROUP THERAPY (11/05/13) PSYCHIA INTERV/EVAL NEC (06/28/14) Family History: States: Unknown Family Hx - Social History Hx Tobacco Use: Yes (heavy smoker) Hx Alcohol Use: No Hx Substance Use: No - Immunization History Hx Tetanus Toxoid Vaccination: No Hx Influenza Vaccination: Yes (2017) Hx Pneumococcal Vaccination: Yes Review Of Systems Constitutional: Negative for: Fever, Chills Gastrointestinal: Negative for: Nausea, Vomiting, Diarrhea Physical Exam - Physical Exam Appears: Non-toxic, No Acute Distress Skin: Warm, Dry Head: Normacephalic Oral Mucosa: Moist Chest: Symmetrical Cardiovascular: Rhythm Regular Respiratory: No Rales, No Rhonchi, No Wheezing Gastrointestinal/Abdominal: Soft, No Tenderness Neurological/Psych: Oriented x3 ED Course And Treatment O2 Sat by Pulse Oximetry: 97 Pulse Ox Interpretation: Normal Reevaluation Time: 05:28 Reassessment Condition: Improved Disposition Counseled Patient/Family Regarding: Studies Performed, Diagnosis, Need For Followup - Disposition Referrals: [facility] at [facility] [Outside] Disposition: HOME/ ROUTINE Disposition Time: 00:50 Condition: FAIR Instructions: Schizophrenia (ED) Forms: [employer] Connect (Belarusian) - Clinical Impression Clinical Impression: Schizophrenia - Scribe Statement The provider has reviewed the documentation as recorded by the Scribalexis Gottlieb All medical record entries made by the Scribe were at my direction and personally dictated by me. I have reviewed the chart and agree that the record accurately reflects my personal performance of the history, physical exam, medical decision making, and the department course for this patient. I have also personally directed, reviewed, and agree with the discharge instructions and disposition.
[2017-02-15 06:22] VITALS: BP 128/81; PULSE 74; RESP 18; TEMP 97.9; O2SAT 95
== END 2017-02-15 06:21 | disposition home or self-care (01) ==
LOC: C.ER 00:33
DX: F20.9 Schizophrenia, unspecified (principal)

== ENCOUNTER 2017-02-17 05:18 | Emergency (ER) | payer MEDICARE ==
[2017-02-17 05:18] VITALS: BMI 23.7
--- NOTE | 2017-02-17 05:27 | C.PDOC ---
History Of Present Illness 57 y/o male presents to ED requesting a place to sleep and food. Patient has no physical complaints at this time. Time Seen by Provider: 02/17/17 05:26 Chief Complaint (Nursing): Abdominal Pain History Per: Patient History/Exam Limitations: no limitations Onset/Duration Of Symptoms: Hrs Current Symptoms Are (Timing): Still Present Suicide/Self Injury Attempted (Context): None Modifying Factor(s): None Severity: Mild Pain Scale Rating Of: 2 Associated Symptoms: denies: Anger, Anxiety Past Medical History Reviewed: Historical Data, Nursing Documentation, Vital Signs Vital Signs: Last Vital Signs Temp 97.8 F 02/17/17 05:23 Pulse 102 H 02/17/17 05:23 Resp 16 02/17/17 05:23 BP 125/83 02/17/17 05:23 Pulse Ox 98 02/17/17 05:44 - Medical History PMH: Anxiety, Asthma, Bipolar Disorder, Depression, Gastritis, Paranoia, Personality Disorder, Schizophrenia, Seizures, Chronic Pain (abd) Surgical History: No Surg Hx - [facility] Procedures APPLICATION OF SPLINT (04/09/14) CL FX REDUC-TIBIA/FIBULA (02/26/13) GROUP PSYCHOTHERAPY (07/30/16) INDIVID PSYCHOTHERAP NEC (12/17/13) INDIVIDUAL PSYCHOTHERAPY, BEHAVIORAL (01/29/16) INDIVIDUAL PSYCHOTHERAPY, COGNITIVE-BEHAVIORAL (07/30/16) INDIVIDUAL PSYCHOTHERAPY, SUPPORTIVE (07/22/16) MEDICATION MANAGEMENT (07/22/16) OTHER GROUP THERAPY (11/05/13) PSYCHIA INTERV/EVAL NEC (06/28/14) Family History: States: No Known Family Hx - Social History Hx Tobacco Use: Yes (heavy smoker) Hx Alcohol Use: No Hx Substance Use: No - Immunization History Hx Tetanus Toxoid Vaccination: No Hx Influenza Vaccination: Yes (2016) Hx Pneumococcal Vaccination: Yes Review Of Systems Constitutional: Negative for: Fever, Chills Cardiovascular: Negative for: Chest Pain Respiratory: Negative for: Shortness of Breath Gastrointestinal: Negative for: Nausea, Vomiting Skin: Negative for: Rash Physical Exam - Physical Exam Appears: Non-toxic, No Acute Distress Skin: Warm, Dry, No Rash Head: Normacephalic Oral Mucosa: Moist Neck: Supple Cardiovascular: Rhythm Regular Respiratory: No Rales, No Rhonchi, No Wheezing Gastrointestinal/Abdominal: Soft, No Tenderness, No Guarding, No Rebound Extremity: Capillary Refill (<2 seconds) Extremity: Bilateral: Atraumatic Neurological/Psych: Oriented x3 ED Course And Treatment O2 Sat by Pulse Oximetry: 98 (RA) Pulse Ox Interpretation: Normal Reevaluation Time: 06:17 Reassessment Condition: Improved Disposition Counseled Patient/Family Regarding: Studies Performed, Diagnosis, Need For Followup - Disposition Referrals: [facility] at [facility] [Outside] Disposition: HOME/ ROUTINE Disposition Time: 05:27 Condition: FAIR Instructions: Schizophrenia (ED) Forms: [employer] Connect (Divehi) - Clinical Impression Clinical Impression: Schizophrenia - Scribe Statement The provider has reviewed the documentation as recorded by the Scribe Chris Puente All medical record entries made by the Madhavibe were at my direction and personally dictated by me. I have reviewed the chart and agree that the record accurately reflects my personal performance of the history, physical exam, medical decision making, and the department course for this patient. I have also personally directed, reviewed, and agree with the discharge instructions and disposition.
[2017-02-17 05:30] VITALS: BP 125/83; PULSE 102; RESP 16; TEMP 97.8; O2SAT 98
== END 2017-02-17 07:04 | disposition home or self-care (01) ==
LOC: C.ER 05:18
DX: F20.9 Schizophrenia, unspecified (principal)

== ENCOUNTER 2017-02-18 16:36 | Emergency (ER) | payer MEDICARE ==
[2017-02-18 16:36] VITALS: BMI 23.7
[2017-02-18 16:44] VITALS: BP 126/88; PULSE 106; RESP 20; TEMP 99; O2SAT 98
[2017-02-18] MEDS ORDERED: Sucralfate 1 gm/10 ml Oral Susp UD PO STA (19:35)
--- NOTE | 2017-02-18 19:40 | C.PDOC ---
History Of Present Illness 57 year old male with Hc of bipolar disorder and chronic abdominal pain presents to the ED c/o abdominal pain for the past 2 hours associated with vomit. Patient denies SI/HI, dysuria and hematuria. Time Seen by Provider: 02/18/17 16:53 Chief Complaint (Nursing): Abdominal Pain History Per: Patient History/Exam Limitations: no limitations Onset/Duration Of Symptoms: Hrs Current Symptoms Are (Timing): Still Present Location Of Pain/Discomfort: Epigastric Radiation Of Pain To:: None Quality Of Discomfort: "Pain" Associated Symptoms: Vomiting Recent travel outside of the [place]: No Additional History Per: Patient Past Medical History Reviewed: Historical Data, Nursing Documentation, Vital Signs Vital Signs: Last Vital Signs Temp 99 F 02/18/17 16:41 Pulse 106 H 02/18/17 16:41 Resp 20 02/18/17 16:41 BP 126/88 02/18/17 16:41 Pulse Ox 98 02/18/17 19:45 - Medical History PMH: Anxiety, Asthma, Bipolar Disorder, Depression, Gastritis, Paranoia, Personality Disorder, Schizophrenia, Seizures, Chronic Pain (abd) Denies: HIV, HTN, Chronic Kidney Disease, Sexually Transmitted Disease Surgical History: No Surg Hx - [facility] Procedures APPLICATION OF SPLINT (04/09/14) CL FX REDUC-TIBIA/FIBULA (02/26/13) GROUP PSYCHOTHERAPY (07/30/16) INDIVID PSYCHOTHERAP NEC (12/17/13) INDIVIDUAL PSYCHOTHERAPY, BEHAVIORAL (01/29/16) INDIVIDUAL PSYCHOTHERAPY, COGNITIVE-BEHAVIORAL (07/30/16) INDIVIDUAL PSYCHOTHERAPY, SUPPORTIVE (07/22/16) MEDICATION MANAGEMENT (07/22/16) OTHER GROUP THERAPY (11/05/13) PSYCHIA INTERV/EVAL NEC (06/28/14) Family History: States: Unknown Family Hx - Social History Hx Tobacco Use: Yes (heavy smoker) Hx Alcohol Use: No Hx Substance Use: No - Immunization History Hx Tetanus Toxoid Vaccination: No Hx Influenza Vaccination: Yes (2017) Hx Pneumococcal Vaccination: Yes Review Of Systems Constitutional: Negative for: Fever, Chills Cardiovascular: Negative for: Chest Pain, Palpitations Respiratory: Negative for: Cough, Shortness of Breath Gastrointestinal: Positive for: Vomiting, Abdominal Pain. Negative for: Nausea Genitourinary: Negative for: Dysuria, Hematuria Psych: Negative for: Suicidal ideation Physical Exam - Physical Exam Appears: Non-toxic, No Acute Distress Skin: Normal Color, Warm, Dry Head: Atraumatic, Normacephalic Neck: Normal ROM, Supple Chest: Symmetrical, No Tenderness Cardiovascular: Rhythm Regular, No Murmur Respiratory: Normal Breath Sounds, No Rales, No Rhonchi, No Wheezing Gastrointestinal/Abdominal: Soft, Tenderness (Over epigastric area), No Guarding , No Rebound Extremity: Normal ROM, No Pedal Edema, No Calf Tenderness, No Swelling Neurological/Psych: Oriented x3, Normal Speech, Normal Cognition ED Course And Treatment - Laboratory Results Result Diagrams: 02/18/17 22:47 02/18/17 22:35 O2 Sat by Pulse Oximetry: 98 (On RA) Pulse Ox Interpretation: Normal Medical Decision Making Medical Decision Making: Impression : 57 y/o male with abdominal pain. Plan: * Blood work, UA ordered * Carafate oral sup 1 gm PO, Pepcid 20 mg IVP, and Zofran 4 mg IVP given Disposition Counseled Patient/Family Regarding: Diagnosis - Disposition Referrals: [facility] at [facility] [Outside] Disposition: ELOPEMENT - ER ONLY Disposition Time: 01:15 Condition: STABLE Forms: [facility] (Montserratian) - POA Present On Arrival: None - Clinical Impression Clinical Impression: Abdominal pain, Bipolar disorder - Scribe Statement The provider has reviewed the documentation as recorded by the Scribe Jarod Jett All medical record entries made by the Scribe were at my direction and personally dictated by me. I have reviewed the chart and agree that the record accurately reflects my personal performance of the history, physical exam, medical decision making, and the department course for this patient. I have also personally directed, reviewed, and agree with the discharge instructions and disposition.
[2017-02-18] MEDS ORDERED: Sucralfate 1 gm/10 ml Oral Susp UD ONE (22:24)
[2017-02-18 22:42] LABS: BASO # 0.1 K/uL (0.0-0.2); EOS # 0.2 K/uL (0.0-0.7); EOS % 2.1 % (0.0-4.0); HEMATOCRIT 39.3 % (35.0-51.0); LYMPH # 2.4 K/uL (1.0-4.3); LYMPH % 28.1 % (20.0-40.0); MEAN CELL VOLUME 91.7 fL (80.0-94.0); MEAN CORPUSCULAR HEMOGLOBIN 30.7 pg (27.0-31.0); MEAN CORPUSCULAR HGB CONC 33.5 g/dL (33.0-37.0); MEAN PLATELET VOLUME 7.6 fL (7.2-11.7); MONO # 0.6 K/uL (0.0-0.8); MONO % 6.6 % (0.0-10.0); RED CELL DISTRIBUTION WIDTH 14.5 % (11.5-14.5)
[2017-02-18 22:47] LABS: WHITE BLOOD COUNT 8.6 K/uL (4.8-10.8)
[2017-02-18 23:12] LABS: ALB/GLOB RATIO 1.7 (1.0-2.1); ALKALINE PHOSPHATASE 80 U/L (38-126); ALT/SGPT 39 U/L (21-72); AST/SGOT 29 U/L (17-59); BILIRUBIN,TOTAL 0.6 mg/dL (0.2-1.3); BLOOD UREA NITROGEN 14 mg/dL (9-20); CALCIUM 8.8 mg/dl (8.6-10.4); CARBON DIOXIDE 28 mmol/L (22-30); CHLORIDE 100 mmol/L (98-107); GFR AFRICAN-AMERICAN > 60; GLUCOSE,RANDOM 89 mg/dL (75-110); POTASSIUM 3.8 mmol/L (3.6-5.2); SODIUM 136 mmol/L (132-148); TOTAL PROTEIN 6.5 g/dL (6.3-8.3)
== END 2017-02-18 23:45 | disposition left against medical advice (07) ==
LOC: C.ER 16:36
DX: F31.9 Bipolar disorder, unspecified (principal); R10.9 Unspecified abdominal pain
CPT/HCPCS: 80053; 83690; 85025; 96374; 96375; 99283; J2405

== ENCOUNTER 2017-02-19 22:11 | Emergency (ER) | payer MEDICARE ==
[2017-02-19 22:12] VITALS: BMI 23.7
[2017-02-19 22:29] VITALS: TEMP 98.2; O2SAT 98
--- NOTE | 2017-02-19 22:44 | C.PDOC ---
History Of Present Illness Patient presents to ED with complaints of abdominal pain and requesting a place to rest. Patient has been evaluated multiple times at ED for chronic abdominal pain. Patient denies nausea, vomiting, diarrhea or any other complaints at this time. Time Seen by Provider: 02/19/17 22:43 Chief Complaint (Nursing): Abdominal Pain History Per: Patient History/Exam Limitations: no limitations Onset/Duration Of Symptoms: Days Current Symptoms Are (Timing): Still Present Severity: Mild Pain Scale Rating Of: 2 Location Of Pain/Discomfort: Diffuse Radiation Of Pain To:: None Quality Of Discomfort: "Pain" Associated Symptoms: denies: Fever, Chills, Nausea, Vomiting, Diarrhea Exacerbating Factors: None Alleviating Factors: None Last Bowel Movement: Today Recent travel outside of the [place]: No Additional History Per: Patient Past Medical History Reviewed: Historical Data, Nursing Documentation, Vital Signs Vital Signs: Last Vital Signs Temp 98.2 F 02/19/17 22:26 Pulse 80 02/19/17 22:26 Resp 14 02/19/17 22:26 BP 120/85 02/19/17 22:26 Pulse Ox 98 02/19/17 22:53 - Medical History PMH: Anxiety, Asthma, Bipolar Disorder, Depression, Gastritis, Paranoia, Personality Disorder, Schizophrenia, Seizures, Chronic Pain (abd) Surgical History: No Surg Hx - [facility] Procedures APPLICATION OF SPLINT (04/09/14) CL FX REDUC-TIBIA/FIBULA (02/26/13) GROUP PSYCHOTHERAPY (07/30/16) INDIVID PSYCHOTHERAP NEC (12/17/13) INDIVIDUAL PSYCHOTHERAPY, BEHAVIORAL (01/29/16) INDIVIDUAL PSYCHOTHERAPY, COGNITIVE-BEHAVIORAL (07/30/16) INDIVIDUAL PSYCHOTHERAPY, SUPPORTIVE (07/22/16) MEDICATION MANAGEMENT (07/22/16) OTHER GROUP THERAPY (11/05/13) PSYCHIA INTERV/EVAL NEC (06/28/14) Family History: States: No Known Family Hx - Social History Hx Tobacco Use: Yes (heavy smoker) Hx Alcohol Use: No Hx Substance Use: No - Immunization History Hx Tetanus Toxoid Vaccination: No Hx Influenza Vaccination: Yes (2016) Hx Pneumococcal Vaccination: Yes Review Of Systems Constitutional: Negative for: Fever, Chills Gastrointestinal: Positive for: Abdominal Pain. Negative for: Nausea, Vomiting , Diarrhea Genitourinary: Negative for: Dysuria, Hematuria Musculoskeletal: Negative for: Back Pain Skin: Negative for: Rash Physical Exam - Physical Exam Appears: Non-toxic, No Acute Distress Skin: Warm, Dry, No Rash Head: Normacephalic Oral Mucosa: Moist Chest: Symmetrical Cardiovascular: Rhythm Regular Respiratory: No Rales, No Rhonchi, No Wheezing Gastrointestinal/Abdominal: Soft, No Tenderness, No Guarding, No Rebound Back: No CVA Tenderness Neurological/Psych: Oriented x3 Gait: Steady ED Course And Treatment O2 Sat by Pulse Oximetry: 98 (RA) Pulse Ox Interpretation: Normal Reevaluation Time: 03:13 Reassessment Condition: Improved Disposition Counseled Patient/Family Regarding: Studies Performed, Diagnosis, Need For Followup - Disposition Referrals: [facility] at [facility] [Outside] Disposition: HOME/ ROUTINE Disposition Time: 22:43 Condition: FAIR Instructions: Schizophrenia (ED) Forms: [facility] (Cameroonian) - Clinical Impression Clinical Impression: Schizophrenia - Scribe Statement The provider has reviewed the documentation as recorded by the Scribalexis Puente All medical record entries made by the Madhavibalexis were at my direction and personally dictated by me. I have reviewed the chart and agree that the record accurately reflects my personal performance of the history, physical exam, medical decision making, and the department course for this patient. I have also personally directed, reviewed, and agree with the discharge instructions and disposition.
[2017-02-20 03:27] VITALS: BP 124/76; PULSE 74; RESP 18
== END 2017-02-20 03:32 | disposition home or self-care (01) ==
LOC: C.ER 22:11
DX: F20.9 Schizophrenia, unspecified (principal); Z87.891 Personal history of nicotine dependence

== ENCOUNTER 2017-02-21 01:53 | Emergency (ER) | payer MEDICARE ==
[2017-02-21 01:54] VITALS: BMI 23.7
--- NOTE | 2017-02-21 01:59 | C.PDOC ---
Time Seen by Provider: 02/21/17 01:55 Past Medical History - Medical History PMH: Anxiety, Asthma, Bipolar Disorder, Depression, Gastritis, Paranoia, Personality Disorder, Schizophrenia, Seizures, Chronic Pain (abd) Denies: HIV, HTN, Chronic Kidney Disease, Sexually Transmitted Disease Surgical History: - [facility] Procedures APPLICATION OF SPLINT (04/09/14) CL FX REDUC-TIBIA/FIBULA (02/26/13) GROUP PSYCHOTHERAPY (07/30/16) INDIVID PSYCHOTHERAP NEC (12/17/13) INDIVIDUAL PSYCHOTHERAPY, BEHAVIORAL (01/29/16) INDIVIDUAL PSYCHOTHERAPY, COGNITIVE-BEHAVIORAL (07/30/16) INDIVIDUAL PSYCHOTHERAPY, SUPPORTIVE (07/22/16) MEDICATION MANAGEMENT (07/22/16) OTHER GROUP THERAPY (11/05/13) PSYCHIA INTERV/EVAL NEC (06/28/14) Family History: States: Unknown Family Hx - Social History Hx Tobacco Use: Yes (heavy smoker) Hx Alcohol Use: No Hx Substance Use: No - Immunization History Hx Tetanus Toxoid Vaccination: No Hx Influenza Vaccination: Yes (2016) Hx Pneumococcal Vaccination: Yes Disposition Counseled Patient/Family Regarding: Studies Performed, Diagnosis, Need For Followup - Disposition Referrals: [facility] at [facility] [Outside] Disposition: HOME/ ROUTINE Disposition Time: 01:56 Condition: FAIR Instructions: Schizophrenia (ED) - Clinical Impression Clinical Impression: Schizophrenia
[2017-02-21] MEDS ORDERED: Bacitracin 500 Units/gm Oint Foilpak UD ONE (17:41)
== END 2017-02-21 01:55 | disposition left against medical advice (07) ==
LOC: C.ER 01:53
DX: Z02.89 Encounter for other administrative examinations (principal); N39.9 Disorder of urinary system, unspecified

== ENCOUNTER 2017-02-21 14:29 | Emergency (ER) | payer MEDICARE ==
[2017-02-21 14:29] VITALS: BMI 23.7
--- NOTE | 2017-02-22 11:01 | C.PDOC ---
History Of Present Illness PATIENT LEFT WITHOUT BEING SEEN BY ME. NO PATIENT CONTACT WAS MADE BY ME. PER ADMINISTRATION, I WAS TOLD TO SIGN THE CHART, SOLELY FOR THE PURPOSE OF HAVING PATIENT OFF OF MY LIST, NOT BECAUSE I SAW THE PATIENT. I WAS ALSO TOLD BY ADMINISTRATION TO WRITE A STATEMENT STATING THAT I WAS NOT INVOLVED IN THIS PATIENT'S CARE. Time Seen by Provider: 02/21/17 14:59 Past Medical History - Medical History PMH: Anxiety, Asthma, Bipolar Disorder, Depression, Gastritis, Paranoia, Personality Disorder, Schizophrenia, Seizures, Chronic Pain (abd) Denies: HIV, HTN, Chronic Kidney Disease, Sexually Transmitted Disease Surgical History: - [facility] Procedures APPLICATION OF SPLINT (04/09/14) CL FX REDUC-TIBIA/FIBULA (02/26/13) GROUP PSYCHOTHERAPY (07/30/16) INDIVID PSYCHOTHERAP NEC (12/17/13) INDIVIDUAL PSYCHOTHERAPY, BEHAVIORAL (01/29/16) INDIVIDUAL PSYCHOTHERAPY, COGNITIVE-BEHAVIORAL (07/30/16) INDIVIDUAL PSYCHOTHERAPY, SUPPORTIVE (07/22/16) MEDICATION MANAGEMENT (07/22/16) OTHER GROUP THERAPY (11/05/13) PSYCHIA INTERV/EVAL NEC (06/28/14) Family History: States: Unknown Family Hx - Social History Hx Tobacco Use: Yes (heavy smoker) Hx Alcohol Use: No Hx Substance Use: No - Immunization History Hx Tetanus Toxoid Vaccination: No Hx Influenza Vaccination: Yes (2016) Hx Pneumococcal Vaccination: Yes Disposition - Disposition Disposition: LEFT W/O BEING SEEN - ER ONLY Disposition Time: 14:29 Condition: STABLE - Clinical Impression Clinical Impression: Smelly feet - Scribe Statement The provider has reviewed the documentation as recorded by the Scribe (Rosi Chow) Provider Attestation: All medical record entries made by the Scribe were at my direction and personally dictated by me. I have reviewed the chart and agree that the record accurately reflects my personal performance of the history, physical exam, medical decision making, and the department course for this patient. I have also personally directed, reviewed, and agree with the discharge instructions and disposition.
== END 2017-02-21 14:59 | disposition left against medical advice (07) ==
LOC: C.ER 14:29
DX: Z02.89 Encounter for other administrative examinations (principal); R51 Headache

== ENCOUNTER 2017-02-26 00:29 | Emergency (ER) | payer MEDICARE ==
[2017-02-26 00:39] VITALS: BMI 25.8
[2017-02-26 00:44] VITALS: RESP 18
--- NOTE | 2017-02-26 01:32 | C.PDOC ---
History Of Present Illness 57 year old male presents to the ER requesting a place to spend the night. Denies physical complaints at this time. Time Seen by Provider: 02/26/17 00:51 Chief Complaint (Nursing): Medical Clearance History Per: Patient History/Exam Limitations: no limitations Onset/Duration Of Symptoms: Hrs Current Symptoms Are (Timing): Still Present Recent travel outside of the [place]: No Past Medical History Reviewed: Historical Data, Nursing Documentation, Vital Signs Vital Signs: Last Vital Signs Temp 97.7 F 02/26/17 00:40 Pulse 87 02/26/17 00:40 Resp 18 02/26/17 00:40 BP 134/84 02/26/17 00:40 Pulse Ox 100 02/26/17 01:55 - Medical History PMH: Anxiety, Asthma, Bipolar Disorder, Depression, Gastritis, Paranoia, Personality Disorder, Schizophrenia, Seizures, Chronic Pain (abd) Surgical History: - [facility] Procedures APPLICATION OF SPLINT (04/09/14) CL FX REDUC-TIBIA/FIBULA (02/26/13) GROUP PSYCHOTHERAPY (07/30/16) INDIVID PSYCHOTHERAP NEC (12/17/13) INDIVIDUAL PSYCHOTHERAPY, BEHAVIORAL (01/29/16) INDIVIDUAL PSYCHOTHERAPY, COGNITIVE-BEHAVIORAL (07/30/16) INDIVIDUAL PSYCHOTHERAPY, SUPPORTIVE (07/22/16) MEDICATION MANAGEMENT (07/22/16) OTHER GROUP THERAPY (11/05/13) PSYCHIA INTERV/EVAL NEC (06/28/14) Family History: States: Unknown Family Hx - Social History Hx Tobacco Use: Yes (heavy smoker) Hx Alcohol Use: No Hx Substance Use: No - Immunization History Hx Tetanus Toxoid Vaccination: No Hx Influenza Vaccination: Yes (2016) Hx Pneumococcal Vaccination: Yes Review Of Systems Constitutional: Negative for: Fever, Chills Gastrointestinal: Negative for: Nausea, Vomiting, Diarrhea Physical Exam - Physical Exam Appears: Non-toxic, No Acute Distress Skin: Normal Color, Warm, Dry Head: Atraumatic, Normacephalic Eye(s): bilateral: Normal Inspection Oral Mucosa: Moist Chest: Symmetrical Cardiovascular: Rhythm Regular Respiratory: Normal Breath Sounds, No Rales, No Rhonchi, No Wheezing Neurological/Psych: Oriented x3, Normal Speech Gait: Steady ED Course And Treatment O2 Sat by Pulse Oximetry: 100 (Room air) Pulse Ox Interpretation: Normal Progress Note: 5AM: pt is stable , NAD. advised PMD follow up Disposition - Disposition Disposition: HOME/ ROUTINE Disposition Time: 05:00 Condition: STABLE Forms: [facility] (German) - Clinical Impression Clinical Impression: General medical exam - Scribe Statement The provider has reviewed the documentation as recorded by the Scribe Howard Gottlieb All medical record entries made by the Scribe were at my direction and personally dictated by me. I have reviewed the chart and agree that the record accurately reflects my personal performance of the history, physical exam, medical decision making, and the department course for this patient. I have also personally directed, reviewed, and agree with the discharge instructions and disposition.
[2017-02-26 04:05] VITALS: BP 121/82; PULSE 97; TEMP 98.5; O2SAT 100
== END 2017-02-26 05:09 | disposition home or self-care (01) ==
LOC: C.ER 00:29
DX: Z04.8 Encounter for examination and observation for other specified reasons (principal)

== ENCOUNTER 2017-02-26 20:19 | Emergency (ER) | payer MEDICARE ==
[2017-02-26 20:19] VITALS: BMI 25.8
--- NOTE | 2017-02-26 20:40 | C.PDOC ---
History Of Present Illness 57 male presents to the ED hearing voices and requesting a place to sleep. The patient denies headaches, dizziness, nausea, and vomiting. Time Seen by Provider: 02/26/17 20:38 Chief Complaint (Nursing): Medical Clearance History Per: Patient History/Exam Limitations: no limitations Onset/Duration Of Symptoms: Hrs Current Symptoms Are (Timing): Still Present Severity: None Recent travel outside of the [place]: No Additional History Per: Patient Past Medical History Reviewed: Historical Data, Nursing Documentation, Vital Signs Vital Signs: Last Vital Signs Temp 97.9 F 02/27/17 01:56 Pulse 93 H 02/27/17 01:56 Resp 16 02/27/17 01:56 BP 119/81 02/27/17 01:56 Pulse Ox 97 02/27/17 01:56 - Medical History PMH: Anxiety, Asthma, Bipolar Disorder, Depression, Gastritis, Paranoia, Personality Disorder, Schizophrenia, Seizures, Chronic Pain (abd) Denies: HIV, HTN, Chronic Kidney Disease, Sexually Transmitted Disease Surgical History: - [facility] Procedures APPLICATION OF SPLINT (04/09/14) CL FX REDUC-TIBIA/FIBULA (02/26/13) GROUP PSYCHOTHERAPY (07/30/16) INDIVID PSYCHOTHERAP NEC (12/17/13) INDIVIDUAL PSYCHOTHERAPY, BEHAVIORAL (01/29/16) INDIVIDUAL PSYCHOTHERAPY, COGNITIVE-BEHAVIORAL (07/30/16) INDIVIDUAL PSYCHOTHERAPY, SUPPORTIVE (07/22/16) MEDICATION MANAGEMENT (07/22/16) OTHER GROUP THERAPY (11/05/13) PSYCHIA INTERV/EVAL NEC (06/28/14) Family History: States: No Known Family Hx - Social History Hx Tobacco Use: Yes (heavy smoker) Hx Alcohol Use: No Hx Substance Use: No - Immunization History Hx Tetanus Toxoid Vaccination: No Hx Influenza Vaccination: Yes (2016) Hx Pneumococcal Vaccination: Yes Review Of Systems Except As Marked, All Systems Reviewed And Found Negative. Constitutional: Negative for: Fever, Chills Respiratory: Negative for: Shortness of Breath Gastrointestinal: Negative for: Nausea, Vomiting, Abdominal Pain Musculoskeletal: Negative for: Back Pain Neurological: Positive for: Other (hearing voices ). Negative for: Dizziness Psych: Negative for: Anxiety Physical Exam - Physical Exam Appears: Non-toxic, No Acute Distress Skin: Warm, Dry Head: Normacephalic Oral Mucosa: Moist Neck: Supple Chest: Symmetrical Cardiovascular: Rhythm Regular Respiratory: No Rales, No Rhonchi, No Wheezing Gastrointestinal/Abdominal: Soft, No Tenderness, No Guarding Extremity: Capillary Refill (2<sec.) Extremity: Bilateral: Normal ROM Neurological/Psych: Oriented x3, Normal Speech, Normal Cognition, Other ( hearing voices ) Gait: Steady ED Course And Treatment O2 Sat by Pulse Oximetry: 98 (RA) Pulse Ox Interpretation: Normal Reevaluation Time: 02:20 Reassessment Condition: Improved Disposition Counseled Patient/Family Regarding: Studies Performed, Diagnosis, Need For Followup - Disposition Referrals: [facility] [Outside] Disposition: HOME/ ROUTINE Disposition Time: 20:39 Condition: FAIR Instructions: Schizophrenia (ED) Forms: [employer] [facility] (Welsh) - Clinical Impression Clinical Impression: Schizophrenia - PA / [employer]ECAN CLE[employer]ER / Resident Statement MD/DO has examined the patient and agrees with the treatment plan. - Scribe Statement The provider has reviewed the documentation as recorded by the Scribalexis Cuab All medical record entries made by the Scribe were at my direction and personally dictated by me. I have reviewed the chart and agree that the record accurately reflects my personal performance of the history, physical exam, medical decision making, and the department course for this patient. I have also personally directed, reviewed, and agree with the discharge instructions and disposition.
[2017-02-26 23:18] VITALS: PULSE 93; TEMP 97.9
[2017-02-27 01:57] VITALS: BP 119/81; RESP 16
[2017-02-27 02:20] VITALS: O2SAT 98
== END 2017-02-27 02:21 | disposition home or self-care (01) ==
LOC: C.ER 20:19
DX: F20.9 Schizophrenia, unspecified (principal)

== ENCOUNTER 2017-02-27 16:08 | Emergency (ER) | payer MEDICARE ==
[2017-02-27 16:50] VITALS: BMI 23.0
[2017-02-27 16:52] VITALS: TEMP 98.3
--- NOTE | 2017-02-27 19:03 | C.PDOC ---
History Of Present Illness 57 year old male presents to the ER requesting a place to spend the night. Patient is a well known to the ER and had an extensive stay yesterday. Denies physical complaint at this time. Time Seen by Provider: 02/27/17 19:01 Chief Complaint (Nursing): Abdominal Pain History Per: Patient History/Exam Limitations: no limitations Onset/Duration Of Symptoms: Hrs Current Symptoms Are (Timing): Still Present Associated Symptoms: denies: Fever, Chills, Nausea, Vomiting, Diarrhea, Back Pain, Chest Pain, Constipation, Urinary Symptoms Recent travel outside of the [place]: No Past Medical History Reviewed: Historical Data, Nursing Documentation, Vital Signs Vital Signs: Last Vital Signs Temp 98.3 F 02/27/17 16:50 Pulse 70 02/27/17 19:10 Resp 13 02/27/17 19:10 BP 120/70 02/27/17 19:10 Pulse Ox 98 02/27/17 19:10 - Medical History PMH: Anxiety, Asthma, Bipolar Disorder, Depression, Gastritis, Paranoia, Personality Disorder, Schizophrenia, Seizures, Chronic Pain (abd) Surgical History: No Surg Hx - [facility] Procedures APPLICATION OF SPLINT (04/09/14) CL FX REDUC-TIBIA/FIBULA (02/26/13) GROUP PSYCHOTHERAPY (07/30/16) INDIVID PSYCHOTHERAP NEC (12/17/13) INDIVIDUAL PSYCHOTHERAPY, BEHAVIORAL (01/29/16) INDIVIDUAL PSYCHOTHERAPY, COGNITIVE-BEHAVIORAL (07/30/16) INDIVIDUAL PSYCHOTHERAPY, SUPPORTIVE (07/22/16) MEDICATION MANAGEMENT (07/22/16) OTHER GROUP THERAPY (11/05/13) PSYCHIA INTERV/EVAL NEC (06/28/14) Family History: States: Unknown Family Hx - Social History Hx Tobacco Use: Yes (heavy smoker) Hx Alcohol Use: No Hx Substance Use: No - Immunization History Hx Tetanus Toxoid Vaccination: No Hx Influenza Vaccination: Yes (2017) Hx Pneumococcal Vaccination: Yes Review Of Systems Constitutional: Negative for: Fever, Chills Gastrointestinal: Negative for: Nausea, Vomiting, Diarrhea Physical Exam - Physical Exam Appears: Non-toxic, No Acute Distress Skin: Normal Color, Warm, Dry Head: Atraumatic, Normacephalic Eye(s): bilateral: Normal Inspection Oral Mucosa: Moist Chest: Symmetrical, No Tenderness Cardiovascular: Rhythm Regular Respiratory: Normal Breath Sounds, No Rales, No Rhonchi, No Wheezing Gastrointestinal/Abdominal: Soft, No Tenderness Neurological/Psych: Oriented x3, Normal Speech ED Course And Treatment O2 Sat by Pulse Oximetry: 100 Medical Decision Making Medical Decision Making: baseline, malingering, no new issues Disposition Doctor Will See Patient In The: Office Counseled Patient/Family Regarding: Studies Performed, Diagnosis - Disposition Referrals: [facility] [Outside] [facility] [Outside] Disposition: HOME/ ROUTINE Disposition Time: 19:02 Condition: GOOD Additional Instructions: seek regular longterm placement you may NOT stay in the ER overnight without an acute medical issue Forms: General Discharge Instructions, [facility] (Sami) - Clinical Impression Clinical Impression: Schizophrenia, paranoid type - Scribe Statement The provider has reviewed the documentation as recorded by the Scribalexis Gottlieb All medical record entries made by the Scribe were at my direction and personally dictated by me. I have reviewed the chart and agree that the record accurately reflects my personal performance of the history, physical exam, medical decision making, and the department course for this patient. I have also personally directed, reviewed, and agree with the discharge instructions and disposition.
[2017-02-27 19:10] VITALS: BP 120/70; PULSE 70; RESP 13
[2017-02-27 20:01] VITALS: O2SAT 100
== END 2017-02-27 19:10 | disposition home or self-care (01) ==
LOC: C.ER 16:08
DX: F20.0 Paranoid schizophrenia (principal)

== ENCOUNTER 2017-03-01 19:05 | Emergency (ER) | payer MEDICARE ==
[2017-03-01 19:05] VITALS: BMI 23.0
[2017-03-01 19:15] VITALS: RESP 16; TEMP 98
--- NOTE | 2017-03-01 20:36 | C.PDOC ---
History Of Present Illness 57 year old male presents to the ER requesting a place to spend the night. Denies physical complaints at this time contrary to triage. Chief Complaint (Nursing): Medical Clearance History Per: Patient History/Exam Limitations: no limitations Onset/Duration Of Symptoms: Hrs Current Symptoms Are (Timing): Still Present Recent travel outside of the [place]: No Past Medical History Reviewed: Historical Data, Nursing Documentation, Vital Signs Vital Signs: Last Vital Signs Temp 98.0 F 03/01/17 19:13 Pulse 102 H 03/01/17 19:13 Resp 16 03/01/17 19:13 BP 125/75 03/01/17 19:13 Pulse Ox 99 03/01/17 20:41 - Medical History PMH: Anxiety, Asthma, Bipolar Disorder, Depression, Gastritis, Paranoia, Personality Disorder, Schizophrenia, Seizures, Chronic Pain (abd) Surgical History: - [facility] Procedures APPLICATION OF SPLINT (04/09/14) CL FX REDUC-TIBIA/FIBULA (02/26/13) GROUP PSYCHOTHERAPY (07/30/16) INDIVID PSYCHOTHERAP NEC (12/17/13) INDIVIDUAL PSYCHOTHERAPY, BEHAVIORAL (01/29/16) INDIVIDUAL PSYCHOTHERAPY, COGNITIVE-BEHAVIORAL (07/30/16) INDIVIDUAL PSYCHOTHERAPY, SUPPORTIVE (07/22/16) MEDICATION MANAGEMENT (07/22/16) OTHER GROUP THERAPY (11/05/13) PSYCHIA INTERV/EVAL NEC (06/28/14) Family History: States: Unknown Family Hx - Social History Hx Tobacco Use: Yes (heavy smoker) Hx Alcohol Use: No Hx Substance Use: No - Immunization History Hx Tetanus Toxoid Vaccination: No Hx Influenza Vaccination: Yes (2016) Hx Pneumococcal Vaccination: Yes Review Of Systems Constitutional: Negative for: Fever, Chills Gastrointestinal: Negative for: Nausea, Vomiting, Diarrhea Physical Exam - Physical Exam Appears: Non-toxic, No Acute Distress Skin: Normal Color, Warm, Dry Head: Atraumatic, Normacephalic Eye(s): bilateral: Normal Inspection Oral Mucosa: Moist Chest: Symmetrical Cardiovascular: Rhythm Regular Respiratory: Normal Breath Sounds, No Rales, No Rhonchi, No Wheezing Gastrointestinal/Abdominal: Soft, No Tenderness Neurological/Psych: Oriented x3, Normal Speech, Other (No focal deficits) ED Course And Treatment O2 Sat by Pulse Oximetry: 99 (Room air) Pulse Ox Interpretation: Normal Disposition Counseled Patient/Family Regarding: Diagnosis - Disposition Referrals: [facility] [Outside] Disposition: HOME/ ROUTINE Disposition Time: 06:30 Condition: STABLE Forms: [facility] (Puerto Rican) - POA Present On Arrival: None - Clinical Impression Clinical Impression: Schizophrenia - Scribe Statement The provider has reviewed the documentation as recorded by the Scribe Howard Gottlieb All medical record entries made by the Scribe were at my direction and personally dictated by me. I have reviewed the chart and agree that the record accurately reflects my personal performance of the history, physical exam, medical decision making, and the department course for this patient. I have also personally directed, reviewed, and agree with the discharge instructions and disposition.
[2017-03-02 06:23] VITALS: BP 119/85; PULSE 78; O2SAT 98
== END 2017-03-02 06:22 | disposition home or self-care (01) ==
LOC: C.ER 19:05
DX: F20.9 Schizophrenia, unspecified (principal); Z59.0 Homelessness

== ENCOUNTER 2017-03-03 00:02 | Emergency (ER) | payer MEDICARE ==
[2017-03-03 00:02] VITALS: BMI 23.0
[2017-03-03 00:20] VITALS: BP 134/82; PULSE 92; RESP 20; TEMP 99.2; O2SAT 98
--- NOTE | 2017-03-03 00:25 | C.PDOC ---
History Of Present Illness Patient with a history of alcohol abuse presents to the ED seeking a place to stay. Patient admits to drinking alcohol and has EtOH on breath. Patient has presented to ED with similar complaints several times. Patient denies physical complaints, suicidal ideations, or homicidal ideations. Time Seen by Provider: 03/03/17 00:23 Chief Complaint (Nursing): Medical Clearance History Per: Patient History/Exam Limitations: no limitations Onset/Duration Of Symptoms: Hrs Current Symptoms Are (Timing): Still Present Pain Scale Rating Of: 0 Reports Recently: Seen In ED Recent travel outside of the [place]: No Additional History Per: Prior Records Past Medical History Reviewed: Historical Data, Nursing Documentation, Vital Signs Vital Signs: Last Vital Signs Temp 99.2 F 03/03/17 00:14 Pulse 92 H 03/03/17 00:14 Resp 20 03/03/17 00:14 BP 134/82 03/03/17 00:14 Pulse Ox 98 03/03/17 01:15 - Medical History PMH: Anxiety, Asthma, Bipolar Disorder, Depression, Gastritis, Paranoia, Personality Disorder, Schizophrenia, Seizures, Chronic Pain (abd) Surgical History: - [facility] Procedures APPLICATION OF SPLINT (04/09/14) CL FX REDUC-TIBIA/FIBULA (02/26/13) GROUP PSYCHOTHERAPY (07/30/16) INDIVID PSYCHOTHERAP NEC (12/17/13) INDIVIDUAL PSYCHOTHERAPY, BEHAVIORAL (01/29/16) INDIVIDUAL PSYCHOTHERAPY, COGNITIVE-BEHAVIORAL (07/30/16) INDIVIDUAL PSYCHOTHERAPY, SUPPORTIVE (07/22/16) MEDICATION MANAGEMENT (07/22/16) OTHER GROUP THERAPY (11/05/13) PSYCHIA INTERV/EVAL NEC (06/28/14) Family History: States: Unknown Family Hx - Social History Hx Tobacco Use: Yes (heavy smoker) Hx Alcohol Use: No Hx Substance Use: No - Immunization History Hx Tetanus Toxoid Vaccination: No Hx Influenza Vaccination: Yes (2016) Hx Pneumococcal Vaccination: Yes Review Of Systems Constitutional: Negative for: Fever, Chills Cardiovascular: Negative for: Chest Pain, Palpitations Gastrointestinal: Negative for: Nausea, Vomiting, Abdominal Pain, Diarrhea Psych: Negative for: Suicidal ideation Physical Exam - Physical Exam Appears: Non-toxic, No Acute Distress, Other (EtOH on breath ) Skin: Warm, Dry, No Rash Head: Atraumatic, Normacephalic, No Tenderness Eye(s): bilateral: Normal Inspection, PERRL, EOMI Oral Mucosa: Moist Neck: Supple Chest: Symmetrical, No Deformity Cardiovascular: Rhythm Regular, No Murmur Respiratory: No Rales, No Rhonchi, No Wheezing Gastrointestinal/Abdominal: Soft, No Tenderness, No Distention, No Guarding, No Rebound Extremity: Normal ROM, No Tenderness Neurological/Psych: Oriented x3 ED Course And Treatment O2 Sat by Pulse Oximetry: 98 (RA) Pulse Ox Interpretation: Normal Disposition Counseled Patient/Family Regarding: Studies Performed, Diagnosis, Need For Followup - Disposition Referrals: [facility] [Outside] Disposition: HOME/ ROUTINE Disposition Time: 00:24 Condition: FAIR Instructions: Schizophrenia (ED) Forms: [employer] [facility] (Grenadian) - Clinical Impression Clinical Impression: Schizophrenia - Scribe Statement The provider has reviewed the documentation as recorded by the Scribe Sujatha Ralph All medical record entries made by the Scribe were at my direction and personally dictated by me. I have reviewed the chart and agree that the record accurately reflects my personal performance of the history, physical exam, medical decision making, and the department course for this patient. I have also personally directed, reviewed, and agree with the discharge instructions and disposition.
== END 2017-03-03 02:15 | disposition home or self-care (01) ==
LOC: SUPCPDRO 00:02 → C.ER 00:02
DX: F20.9 Schizophrenia, unspecified (principal)

== ENCOUNTER → 2017-03-03 10:37 | Emergency (ER) | payer MEDICARE ==
[2017-03-03 10:38] VITALS: BMI 23.0
== END | disposition left against medical advice (07) ==
LOC: C.ER 10:37
DX: R10.9 Unspecified abdominal pain (principal); Z02.9 Encounter for administrative examinations, unspecified

== ENCOUNTER 2017-03-03 21:01 | Emergency (ER) | payer MEDICARE ==
[2017-03-03 21:01] VITALS: BMI 23.0
--- NOTE | 2017-03-04 00:18 | C.PDOC ---
History Of Present Illness 57 year old male presents to the ER requesting a place to spend the night. Denies complaints at this time. Chief Complaint (Nursing): Medical Clearance History Per: Patient History/Exam Limitations: no limitations Onset/Duration Of Symptoms: Hrs Current Symptoms Are (Timing): Still Present Recent travel outside of the [place]: No Past Medical History Reviewed: Historical Data, Nursing Documentation, Vital Signs Vital Signs: Last Vital Signs Temp 97.3 F L 03/04/17 01:13 Pulse 72 03/04/17 01:13 Resp 18 03/04/17 01:13 BP 134/74 03/04/17 01:13 Pulse Ox 94 L 03/04/17 01:13 - Medical History PMH: Anxiety, Asthma, Bipolar Disorder, Depression, Gastritis, Paranoia, Personality Disorder, Schizophrenia, Seizures, Chronic Pain (abd) Surgical History: - [facility] Procedures APPLICATION OF SPLINT (04/09/14) CL FX REDUC-TIBIA/FIBULA (02/26/13) GROUP PSYCHOTHERAPY (07/30/16) INDIVID PSYCHOTHERAP NEC (12/17/13) INDIVIDUAL PSYCHOTHERAPY, BEHAVIORAL (01/29/16) INDIVIDUAL PSYCHOTHERAPY, COGNITIVE-BEHAVIORAL (07/30/16) INDIVIDUAL PSYCHOTHERAPY, SUPPORTIVE (07/22/16) MEDICATION MANAGEMENT (07/22/16) OTHER GROUP THERAPY (11/05/13) PSYCHIA INTERV/EVAL NEC (06/28/14) Family History: States: Unknown Family Hx - Social History Hx Tobacco Use: Yes (heavy smoker) Hx Alcohol Use: No Hx Substance Use: No - Immunization History Hx Tetanus Toxoid Vaccination: No Hx Influenza Vaccination: Yes (2016) Hx Pneumococcal Vaccination: Yes Review Of Systems Constitutional: Negative for: Fever, Chills Gastrointestinal: Negative for: Nausea, Vomiting, Diarrhea Physical Exam - Physical Exam Appears: Non-toxic, No Acute Distress Skin: Normal Color, Warm, Dry Head: Atraumatic, Normacephalic Eye(s): bilateral: Normal Inspection Oral Mucosa: Moist Neck: Normal, Supple Chest: Symmetrical Cardiovascular: Rhythm Regular Respiratory: Normal Breath Sounds, No Rales, No Rhonchi, No Wheezing Gastrointestinal/Abdominal: Soft, No Tenderness Neurological/Psych: Oriented x3, Normal Speech, Other (No focal deficits) ED Course And Treatment O2 Sat by Pulse Oximetry: 97 (Room air) Pulse Ox Interpretation: Normal Disposition Counseled Patient/Family Regarding: Diagnosis - Disposition Referrals: [facility] [Outside] Disposition: HOME/ ROUTINE Disposition Time: 03:15 Condition: STABLE Instructions: Schizophrenia (ED) Forms: [facility] (Croatian) - POA Present On Arrival: None - Clinical Impression Clinical Impression: Schizophrenia, Homeless single person - Scribe Statement The provider has reviewed the documentation as recorded by the Scribe Howard Gottlieb All medical record entries made by the Scribe were at my direction and personally dictated by me. I have reviewed the chart and agree that the record accurately reflects my personal performance of the history, physical exam, medical decision making, and the department course for this patient. I have also personally directed, reviewed, and agree with the discharge instructions and disposition.
[2017-03-04 03:16] VITALS: O2SAT 97
[2017-03-04 03:29] VITALS: BP 120/75; PULSE 82; RESP 20; TEMP 98
== END 2017-03-04 03:30 | disposition home or self-care (01) ==
LOC: C.ER 21:01
DX: F20.9 Schizophrenia, unspecified (principal); Z59.0 Homelessness

== ENCOUNTER 2017-03-04 17:19 | Emergency (ER) | payer MEDICARE ==
[2017-03-04 17:19] VITALS: BMI 23.0
[2017-03-04 17:55] VITALS: BP 146/80; PULSE 114; RESP 18; TEMP 99; O2SAT 98
== END 2017-03-04 17:52 | disposition left against medical advice (07) ==
LOC: C.ER 17:19
DX: R44.0 Auditory hallucinations (principal); Z02.9 Encounter for administrative examinations, unspecified

== ENCOUNTER 2017-03-05 23:16 | Emergency (ER) | payer MEDICARE ==
[2017-03-05 23:17] VITALS: BMI 23.0
--- NOTE | 2017-03-06 00:51 | C.PDOC ---
History Of Present Illness 57 year old male presents to the ER requesting a place to spend the night. Patient is well known to the ER for malingering; denies any complaints at this time. Time Seen by Provider: 03/06/17 00:31 Chief Complaint (Nursing): Medical Clearance History Per: Patient History/Exam Limitations: no limitations Onset/Duration Of Symptoms: Hrs Current Symptoms Are (Timing): Still Present Recent travel outside of the [place]: No Past Medical History Reviewed: Historical Data, Nursing Documentation, Vital Signs Vital Signs: Last Vital Signs Temp 98.5 F 03/06/17 01:00 Pulse 79 03/06/17 01:00 Resp 18 03/06/17 01:00 BP 128/74 03/06/17 01:00 Pulse Ox 99 03/06/17 02:50 - Medical History PMH: Anxiety, Asthma, Bipolar Disorder, Depression, Gastritis, Paranoia, Personality Disorder, Schizophrenia, Seizures, Chronic Pain (abd) Surgical History: - [facility] Procedures APPLICATION OF SPLINT (04/09/14) CL FX REDUC-TIBIA/FIBULA (02/26/13) GROUP PSYCHOTHERAPY (07/30/16) INDIVID PSYCHOTHERAP NEC (12/17/13) INDIVIDUAL PSYCHOTHERAPY, BEHAVIORAL (01/29/16) INDIVIDUAL PSYCHOTHERAPY, COGNITIVE-BEHAVIORAL (07/30/16) INDIVIDUAL PSYCHOTHERAPY, SUPPORTIVE (07/22/16) MEDICATION MANAGEMENT (07/22/16) OTHER GROUP THERAPY (11/05/13) PSYCHIA INTERV/EVAL NEC (06/28/14) Family History: States: Unknown Family Hx - Social History Hx Tobacco Use: Yes (heavy smoker) Hx Alcohol Use: No Hx Substance Use: No - Immunization History Hx Tetanus Toxoid Vaccination: No Hx Influenza Vaccination: Yes (2017) Hx Pneumococcal Vaccination: Yes Review Of Systems Constitutional: Negative for: Fever, Chills Gastrointestinal: Negative for: Nausea, Vomiting, Diarrhea Physical Exam - Physical Exam Appears: Non-toxic, No Acute Distress Skin: Normal Color, Warm, Dry Head: Atraumatic, Normacephalic Eye(s): bilateral: Normal Inspection Oral Mucosa: Moist Chest: Symmetrical Cardiovascular: Rhythm Regular Respiratory: Normal Breath Sounds, No Rales, No Rhonchi, No Wheezing Neurological/Psych: Oriented x3, Normal Speech ED Course And Treatment O2 Sat by Pulse Oximetry: 99 Disposition Counseled Patient/Family Regarding: Diagnosis, Need For Followup - Disposition Referrals: [facility] [Outside] Disposition: HOME/ ROUTINE Disposition Time: 00:49 Condition: STABLE Additional Instructions: Please follow up in clinic Return to ER as needed for emergencies Forms: [facility] (Sri Lankan), General Discharge Instructions - Clinical Impression Clinical Impression: Malingering, Nausea - Scribe Statement The provider has reviewed the documentation as recorded by the Scribe Howard Gottlieb All medical record entries made by the Madhavibalexis were at my direction and personally dictated by me. I have reviewed the chart and agree that the record accurately reflects my personal performance of the history, physical exam, medical decision making, and the department course for this patient. I have also personally directed, reviewed, and agree with the discharge instructions and disposition.
[2017-03-06 01:01] VITALS: BP 128/74; PULSE 79; RESP 18; TEMP 98.5
[2017-03-06 02:49] VITALS: O2SAT 99
== END 2017-03-06 01:01 | disposition home or self-care (01) ==
LOC: C.ER 23:16
DX: Z76.5 Malingerer [conscious simulation] (principal); R11.0 Nausea

== ENCOUNTER 2017-03-06 22:40 | Emergency (ER) | payer MEDICARE ==
[2017-03-06 22:40] VITALS: BMI 23.0
--- NOTE | 2017-03-06 23:23 | C.PDOC ---
History Of Present Illness 57 year old male who is a well known schizophrenic presents to the ER with a complaint of auditory hallucinations that are worse today. He states the voice is a male voice telling him to kill himself and other but he cannot be more specific. Patient states he normally takes haldol, cogentin, and seroquel but denies noncompliance of his medications, drug use, ETOH abuse, or other complaints. Patient also notes he has not been sleeping recently. Time Seen by Provider: 03/06/17 23:14 Chief Complaint (Nursing): Medical Clearance History Per: Patient History/Exam Limitations: no limitations Onset/Duration Of Symptoms: Hrs Current Symptoms Are (Timing): Still Present Recent travel outside of the [place]: No Past Medical History Reviewed: Historical Data, Nursing Documentation, Vital Signs Vital Signs: Last Vital Signs Temp 98.2 F 03/07/17 02:00 Pulse 75 03/07/17 04:00 Resp 16 03/07/17 04:00 BP 134/80 03/07/17 04:00 Pulse Ox 100 03/07/17 04:00 - Medical History PMH: Anxiety, Asthma, Bipolar Disorder, Depression, Gastritis, Paranoia, Personality Disorder, Schizophrenia, Seizures, Chronic Pain (abd) Surgical History: - [facility] Procedures APPLICATION OF SPLINT (04/09/14) CL FX REDUC-TIBIA/FIBULA (02/26/13) GROUP PSYCHOTHERAPY (07/30/16) INDIVID PSYCHOTHERAP NEC (12/17/13) INDIVIDUAL PSYCHOTHERAPY, BEHAVIORAL (01/29/16) INDIVIDUAL PSYCHOTHERAPY, COGNITIVE-BEHAVIORAL (07/30/16) INDIVIDUAL PSYCHOTHERAPY, SUPPORTIVE (07/22/16) MEDICATION MANAGEMENT (07/22/16) OTHER GROUP THERAPY (11/05/13) PSYCHIA INTERV/EVAL NEC (06/28/14) Family History: States: Unknown Family Hx - Social History Hx Tobacco Use: Yes (heavy smoker) Hx Alcohol Use: No Hx Substance Use: No - Immunization History Hx Tetanus Toxoid Vaccination: No Hx Influenza Vaccination: Yes (2016) Hx Pneumococcal Vaccination: Yes Review Of Systems Constitutional: Negative for: Fever, Chills Gastrointestinal: Negative for: Nausea, Vomiting, Diarrhea Psych: Positive for: Psychosis, Suicidal ideation, Other (Auditory hallucinations) Physical Exam - Physical Exam Appears: Non-toxic, No Acute Distress, Unkempt, Other (Does not appear agitated) Skin: Normal Color, Warm, Dry Head: Atraumatic, Normacephalic Eye(s): bilateral: Normal Inspection Oral Mucosa: Moist Neck: Normal, Supple Chest: Symmetrical, No Tenderness Cardiovascular: Rhythm Regular Respiratory: Normal Breath Sounds, No Rales, No Rhonchi, No Wheezing Gastrointestinal/Abdominal: Soft, No Tenderness Extremity: Normal ROM (x4), Other (No evidence of IVDA) Neurological/Psych: Oriented x3, Normal Speech, Other (No focal deficits) ED Course And Treatment - Laboratory Results Result Diagrams: 03/07/17 00:40 03/07/17 00:40 O2 Sat by Pulse Oximetry: 99 (Room air) Pulse Ox Interpretation: Normal Medical Decision Making Medical Decision Making: EKG, blood work, and urinalysis ordered. Patient appear to have acute schizophrenia exacerbation and acute psychosis; will clear medically for psychiatric evaluation. Disposition - Disposition Referrals: Non [facility] Provider, [Primary Care Provider] - Disposition: HOME/ ROUTINE Disposition Time: 06:19 Condition: GOOD Forms: [facility] (Syriac) Print Language: KINYARWANDA - Clinical Impression Clinical Impression: Polysubstance (excluding opioids) dependence, daily use - Scribe Statement The provider has reviewed the documentation as recorded by the Scribe Howard Gottlieb All medical record entries made by the Scribe were at my direction and personally dictated by me. I have reviewed the chart and agree that the record accurately reflects my personal performance of the history, physical exam, medical decision making, and the department course for this patient. I have also personally directed, reviewed, and agree with the discharge instructions and disposition.
[2017-03-07 00:47] LABS: BASO # 0.1 K/uL (0.0-0.2); BASO % 0.9 % (0.0-2.0); EOS # 0.2 K/uL (0.0-0.7); EOS % 3.4 % (0.0-4.0); HEMATOCRIT 40.5 % (35.0-51.0); LYMPH # 1.9 K/uL (1.0-4.3); LYMPH % 27.5 % (20.0-40.0); MEAN CELL VOLUME 91.6 fL (80.0-94.0); MEAN CORPUSCULAR HEMOGLOBIN 30.6 pg (27.0-31.0); MEAN CORPUSCULAR HGB CONC 33.5 g/dL (33.0-37.0); MEAN PLATELET VOLUME 7.7 fL (7.2-11.7); MONO # 0.5 K/uL (0.0-0.8); WHITE BLOOD COUNT 6.9 K/uL (4.8-10.8)
[2017-03-07 01:01] LABS: ALB/GLOB RATIO 1.1 (1.0-2.1); ALCOHOL SERUM < 10 mg/dl (0-10); ALKALINE PHOSPHATASE 84 U/L (38-126); ALT/SGPT 33 U/L (21-72); AST/SGOT 26 U/L (17-59); BILIRUBIN,TOTAL 0.3 mg/dL (0.2-1.3); BLOOD UREA NITROGEN 15 mg/dL (9-20); CALCIUM 8.5 mg/dl (8.6-10.4); CARBON DIOXIDE 29 mmol/L (22-30); CHLORIDE 103 mmol/L (98-107); GFR AFRICAN-AMERICAN > 60; GLUCOSE,RANDOM 111 mg/dL (75-110); POTASSIUM 3.7 mmol/L (3.6-5.2); SODIUM 138 mmol/L (132-148); TOTAL PROTEIN 6.9 g/dL (6.3-8.3)
[2017-03-07 02:29] VITALS: RESP 16; TEMP 98.2
[2017-03-07 04:57] VITALS: BP 134/80; PULSE 75
[2017-03-07 06:21] VITALS: O2SAT 99
== END 2017-03-07 06:22 | disposition home or self-care (01) ==
LOC: C.ER 22:40 → SUPCPDRO 22:40 → C.ER 03-07 06:22
DX: F19.20 Other psychoactive substance dependence, uncomplicated (principal); Z87.891 Personal history of nicotine dependence

== ENCOUNTER 2017-03-07 15:19 | Emergency (ER) | payer MEDICARE ==
[2017-03-07 15:20] VITALS: BMI 23.0
[2017-03-07 15:33] VITALS: BP 125/80; PULSE 100; RESP 18; TEMP 98; O2SAT 99
== END 2017-03-07 17:00 | disposition left against medical advice (07) ==
LOC: C.ER 15:19
DX: Z02.89 Encounter for other administrative examinations (principal); Z00.00 Encounter for general adult medical examination without abnormal findings

== ENCOUNTER 2017-03-08 09:15 | Emergency (ER) | payer MEDICARE ==
[2017-03-08 09:16] VITALS: BMI 23.0
[2017-03-08 09:25] VITALS: BP 128/80; PULSE 93; RESP 20; TEMP 98.1; O2SAT 99
== END 2017-03-08 11:09 | disposition left against medical advice (07) ==
LOC: C.ER 09:15
DX: R44.0 Auditory hallucinations (principal); Z02.9 Encounter for administrative examinations, unspecified

== ENCOUNTER 2017-03-08 23:52 | Emergency (ER) | payer MEDICARE ==
[2017-03-08 23:52] VITALS: BMI 23.0
[2017-03-09 00:02] VITALS: O2SAT 98
[2017-03-09 02:13] VITALS: BP 133/84; PULSE 87; RESP 18; TEMP 97.8
--- NOTE | 2017-03-09 02:56 | C.PDOC ---
History Of Present Illness 57 year old male presents to the ER requesting a place to spend the night. Denies physical complaints at this time. Chief Complaint (Nursing): Medical Clearance History Per: Patient History/Exam Limitations: no limitations Onset/Duration Of Symptoms: Hrs Current Symptoms Are (Timing): Still Present Recent travel outside of the [place]: No Past Medical History Reviewed: Historical Data, Nursing Documentation, Vital Signs Vital Signs: Last Vital Signs Temp 97.8 F 03/09/17 02:13 Pulse 87 03/09/17 02:13 Resp 18 03/09/17 02:13 BP 133/84 03/09/17 02:13 Pulse Ox 98 03/09/17 02:56 - Medical History PMH: Anxiety, Asthma, Bipolar Disorder, Depression, Gastritis, Paranoia, Personality Disorder, Schizophrenia, Seizures, Chronic Pain (abd) Surgical History: - [facility] Procedures APPLICATION OF SPLINT (04/09/14) CL FX REDUC-TIBIA/FIBULA (02/26/13) GROUP PSYCHOTHERAPY (07/30/16) INDIVID PSYCHOTHERAP NEC (12/17/13) INDIVIDUAL PSYCHOTHERAPY, BEHAVIORAL (01/29/16) INDIVIDUAL PSYCHOTHERAPY, COGNITIVE-BEHAVIORAL (07/30/16) INDIVIDUAL PSYCHOTHERAPY, SUPPORTIVE (07/22/16) MEDICATION MANAGEMENT (07/22/16) OTHER GROUP THERAPY (11/05/13) PSYCHIA INTERV/EVAL NEC (06/28/14) Family History: States: Unknown Family Hx - Social History Hx Tobacco Use: Yes (heavy smoker) Hx Alcohol Use: No Hx Substance Use: No - Immunization History Hx Tetanus Toxoid Vaccination: No Hx Influenza Vaccination: Yes (2016) Hx Pneumococcal Vaccination: Yes Review Of Systems Constitutional: Negative for: Fever, Chills Gastrointestinal: Negative for: Nausea, Vomiting, Diarrhea Physical Exam - Physical Exam Appears: Non-toxic, No Acute Distress Skin: Normal Color, Warm, Dry Head: Atraumatic, Normacephalic Eye(s): bilateral: Normal Inspection Oral Mucosa: Moist Chest: Symmetrical Cardiovascular: Rhythm Regular Respiratory: Normal Breath Sounds, No Rales, No Rhonchi, No Wheezing Gastrointestinal/Abdominal: Soft, No Tenderness Neurological/Psych: Oriented x3, Normal Speech ED Course And Treatment O2 Sat by Pulse Oximetry: 98 (Room air) Pulse Ox Interpretation: Normal Progress Note: Patient is sleeping comfortably in the ER in no distress; will discharge home. Reevaluation Time: 02:26 Reassessment Condition: Improved Disposition - Disposition Disposition: HOME/ ROUTINE Disposition Time: 02:29 Condition: STABLE Forms: [facility] (Romansh) - Clinical Impression Clinical Impression: Medical assessment - PA / MOLD COOLER / Resident Statement MD/DO has reviewed & agrees with the documentation as recorded. - Scribe Statement The provider has reviewed the documentation as recorded by the Scribe Howard Gottlieb
== END 2017-03-09 02:30 | disposition home or self-care (01) ==
LOC: C.ER 23:52
DX: Z00.00 Encounter for general adult medical examination without abnormal findings (principal)

== ENCOUNTER 2017-03-09 18:22 | Emergency (ER) | payer MEDICARE ==
[2017-03-09 18:22] VITALS: BMI 23.0
--- NOTE | 2017-03-09 19:13 | C.PDOC ---
History Of Present Illness Patient presents to the ER requesting a place to spend the night. Denies any physical complaints at this time. Chief Complaint (Nursing): Abdominal Pain History Per: Patient History/Exam Limitations: no limitations Onset/Duration Of Symptoms: Hrs Current Symptoms Are (Timing): Still Present Severity: None Pain Scale Rating Of: 0 Location Of Pain/Discomfort: Other (No pain) Radiation Of Pain To:: None Associated Symptoms: denies: Fever, Chills, Nausea, Vomiting, Diarrhea, Loss Of Appetite Exacerbating Factors: None Alleviating Factors: None Recent travel outside of the [place]: No Past Medical History Reviewed: Historical Data, Nursing Documentation, Vital Signs Vital Signs: Last Vital Signs Temp 97.7 F 03/09/17 22:10 Pulse 87 03/09/17 22:10 Resp 17 03/09/17 22:10 BP 126/79 03/09/17 22:10 Pulse Ox 100 03/09/17 22:10 - Medical History PMH: Anxiety, Asthma, Bipolar Disorder, Depression, Gastritis, Paranoia, Personality Disorder, Schizophrenia, Seizures, Chronic Pain (abd) Surgical History: - [facility] Procedures APPLICATION OF SPLINT (04/09/14) CL FX REDUC-TIBIA/FIBULA (02/26/13) GROUP PSYCHOTHERAPY (07/30/16) INDIVID PSYCHOTHERAP NEC (12/17/13) INDIVIDUAL PSYCHOTHERAPY, BEHAVIORAL (01/29/16) INDIVIDUAL PSYCHOTHERAPY, COGNITIVE-BEHAVIORAL (07/30/16) INDIVIDUAL PSYCHOTHERAPY, SUPPORTIVE (07/22/16) MEDICATION MANAGEMENT (07/22/16) OTHER GROUP THERAPY (11/05/13) PSYCHIA INTERV/EVAL NEC (06/28/14) Family History: States: Unknown Family Hx - Social History Hx Tobacco Use: Yes (heavy smoker) Hx Alcohol Use: No Hx Substance Use: No - Immunization History Hx Tetanus Toxoid Vaccination: No Hx Influenza Vaccination: Yes (2017) Hx Pneumococcal Vaccination: Yes Review Of Systems Constitutional: Negative for: Fever, Chills Gastrointestinal: Negative for: Nausea, Vomiting, Diarrhea Physical Exam - Physical Exam Appears: Non-toxic, No Acute Distress Skin: Warm, Dry Head: Normacephalic Oral Mucosa: Moist Chest: Symmetrical, No Tenderness Cardiovascular: Rhythm Regular Respiratory: No Rales, No Rhonchi, No Wheezing Gastrointestinal/Abdominal: Soft, No Tenderness Neurological/Psych: Oriented x3 ED Course And Treatment O2 Sat by Pulse Oximetry: 98 (Room air) Pulse Ox Interpretation: Normal Disposition Counseled Patient/Family Regarding: Studies Performed, Diagnosis, Need For Followup - Disposition Referrals: [facility] [Outside] Disposition Time: 19:12 Condition: FAIR Instructions: Schizophrenia (ED) Forms: [employer] [facility] (Divehi) - Clinical Impression Clinical Impression: Schizophrenia - Scribe Statement The provider has reviewed the documentation as recorded by the Scribe Howard Gottlieb All medical record entries made by the Scribe were at my direction and personally dictated by me. I have reviewed the chart and agree that the record accurately reflects my personal performance of the history, physical exam, medical decision making, and the department course for this patient. I have also personally directed, reviewed, and agree with the discharge instructions and disposition.
[2017-03-09 22:11] VITALS: BP 126/79; PULSE 87; RESP 17; TEMP 97.7
[2017-03-09 22:20] VITALS: O2SAT 98
== END 2017-03-09 22:26 | disposition home or self-care (01) ==
LOC: C.ER 18:22
DX: F20.9 Schizophrenia, unspecified (principal); F17.210 Nicotine dependence, cigarettes, uncomplicated

== ENCOUNTER 2017-03-10 02:49 | Emergency (ER) | payer MEDICARE ==
[2017-03-10 02:49] VITALS: BMI 23.0
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
[2017-03-10 03:04] VITALS: BP 131/81; PULSE 105; RESP 16; TEMP 98.3; O2SAT 98
== END 2017-03-10 05:42 | disposition home or self-care (01) ==
LOC: C.ER 02:49
DX: F20.9 Schizophrenia, unspecified (principal)

== ENCOUNTER 2017-03-10 17:52 | Emergency (ER) | payer MEDICARE ==
[2017-03-10 17:52] VITALS: BMI 25.9
[2017-03-10 18:12] VITALS: BP 130/86; PULSE 99; RESP 16; TEMP 97.7; O2SAT 100
--- NOTE | 2017-03-10 19:42 | C.PDOC ---
History Of Present Illness The patient presents to the ED requesting a place to stay for the night. Patient was evaluated in this ED twice yesterday and was discharged after an unremarkable workup. Patient was also evaluated for schizophrenia and was cleared for discharge by Dr. Jaime. Patient is familiar to this ED and has had multiple prior presentations concerning similar complaints. Patient denies any complaints at this time. Time Seen by Provider: 03/10/17 19:41 Chief Complaint (Nursing): Abdominal Pain History Per: Patient History/Exam Limitations: no limitations Onset/Duration Of Symptoms: Hrs Current Symptoms Are (Timing): Still Present Radiation Of Pain To:: None Quality Of Discomfort: denies: "Pain" Associated Symptoms: denies: Fever, Chills, Nausea, Vomiting Additional History Per: Patient Past Medical History Reviewed: Historical Data, Nursing Documentation, Vital Signs Vital Signs: Last Vital Signs Temp 97.7 F 03/10/17 18:09 Pulse 99 H 03/10/17 18:09 Resp 16 03/10/17 18:09 BP 130/86 03/10/17 18:09 Pulse Ox 100 03/10/17 20:18 - Medical History PMH: Anxiety, Asthma, Bipolar Disorder, Depression, Gastritis, Paranoia, Personality Disorder, Schizophrenia, Seizures, Chronic Pain (abd) Denies: Diabetes, Hepatitis, HIV, HTN, Sexually Transmitted Disease Surgical History: No Surg Hx - [facility] Procedures APPLICATION OF SPLINT (04/09/14) CL FX REDUC-TIBIA/FIBULA (02/26/13) GROUP PSYCHOTHERAPY (07/30/16) INDIVID PSYCHOTHERAP NEC (12/17/13) INDIVIDUAL PSYCHOTHERAPY, BEHAVIORAL (01/29/16) INDIVIDUAL PSYCHOTHERAPY, COGNITIVE-BEHAVIORAL (07/30/16) INDIVIDUAL PSYCHOTHERAPY, SUPPORTIVE (07/22/16) MEDICATION MANAGEMENT (07/22/16) OTHER GROUP THERAPY (11/05/13) PSYCHIA INTERV/EVAL NEC (06/28/14) Family History: States: No Known Family Hx - Social History Hx Tobacco Use: Yes (heavy smoker) Hx Alcohol Use: No Hx Substance Use: No - Immunization History Hx Tetanus Toxoid Vaccination: No Hx Influenza Vaccination: Yes (2016) Hx Pneumococcal Vaccination: Yes Review Of Systems Constitutional: Negative for: Fever, Chills Cardiovascular: Negative for: Chest Pain, Palpitations Respiratory: Negative for: Cough, Shortness of Breath Gastrointestinal: Negative for: Nausea, Vomiting, Abdominal Pain, Diarrhea, Constipation Skin: Negative for: Rash, Lesions, Jaundice, Bruising Neurological: Negative for: Weakness, Numbness Psych: Negative for: Anxiety Physical Exam - Physical Exam Appears: Non-toxic, No Acute Distress, Other (pleasant, cooperative ) Skin: Warm, Dry Oral Mucosa: Moist Neck: Supple Chest: Symmetrical, No Deformity, No Tenderness Cardiovascular: Rhythm Regular Respiratory: No Rales, No Rhonchi, No Wheezing Extremity: Normal ROM, Capillary Refill (less than 2 seconds ) Neurological/Psych: Oriented x3 Gait: Steady ED Course And Treatment O2 Sat by Pulse Oximetry: 100 (on RA) Pulse Ox Interpretation: Normal Disposition Counseled Patient/Family Regarding: Studies Performed, Diagnosis - Disposition Referrals: [facility] [Outside] Disposition: HOME/ ROUTINE Disposition Time: 19:42 Condition: FAIR Instructions: Schizophrenia (ED) Forms: [facility] [employer] [facility] (Panamanian) - Clinical Impression Clinical Impression: Schizophrenia - Scribe Statement The provider has reviewed the documentation as recorded by the Scribe (Rosi Chow) Provider Attestation: All medical record entries made by the Scribe were at my direction and personally dictated by me. I have reviewed the chart and agree that the record accurately reflects my personal performance of the history, physical exam, medical decision making, and the department course for this patient. I have also personally directed, reviewed, and agree with the discharge instructions and disposition.
== END 2017-03-10 19:41 | disposition home or self-care (01) ==
LOC: C.ER 17:52
DX: F20.9 Schizophrenia, unspecified (principal)

== ENCOUNTER 2017-03-18 18:38 | Emergency (ER) | payer MEDICARE ==
[2017-03-18 18:38] VITALS: BMI 25.9
[2017-03-18 19:33] VITALS: BP 124/81; PULSE 72; RESP 16; TEMP 97.6; O2SAT 99
--- NOTE | 2017-03-18 19:59 | C.PDOC ---
History Of Present Illness The patient presents to the ED requesting a place to stay for the night. Patient is familiar to this ED and has presented multiple times with similar requests. He denies suicidal/homicidal ideation at this time. Time Seen by Provider: 03/18/17 19:57 Chief Complaint (Nursing): Psychiatric Evaluation History Per: Patient History/Exam Limitations: no limitations Onset/Duration Of Symptoms: Hrs Current Symptoms Are (Timing): Still Present Suicide/Self Injury Attempted (Context): None Modifying Factor(s): None Severity: None Pain Scale Rating Of: 0 Associated Symptoms: denies: Suicidal Thoughts, Suicidal Plan Involuntary Hold By: None Recent travel outside of the [place]: No Additional History Per: Patient Past Medical History Reviewed: Historical Data, Nursing Documentation, Vital Signs Vital Signs: Last Vital Signs Temp 97.6 F 03/18/17 19:32 Pulse 72 03/18/17 19:32 Resp 16 03/18/17 19:32 BP 124/81 03/18/17 19:32 Pulse Ox 99 03/18/17 20:06 - Medical History PMH: Anxiety, Asthma, Bipolar Disorder, Depression, Gastritis, Paranoia, Personality Disorder, Schizophrenia, Seizures, Chronic Pain (abd) Denies: Diabetes, Hepatitis, HIV, HTN, Sexually Transmitted Disease Surgical History: No Surg Hx - [facility] Procedures APPLICATION OF SPLINT (04/09/14) CL FX REDUC-TIBIA/FIBULA (02/26/13) GROUP PSYCHOTHERAPY (07/30/16) INDIVID PSYCHOTHERAP NEC (12/17/13) INDIVIDUAL PSYCHOTHERAPY, BEHAVIORAL (01/29/16) INDIVIDUAL PSYCHOTHERAPY, COGNITIVE-BEHAVIORAL (07/30/16) INDIVIDUAL PSYCHOTHERAPY, SUPPORTIVE (07/22/16) MEDICATION MANAGEMENT (07/22/16) OTHER GROUP THERAPY (11/05/13) PSYCHIA INTERV/EVAL NEC (06/28/14) Family History: States: Unknown Family Hx - Social History Hx Tobacco Use: Yes (heavy smoker) Hx Alcohol Use: No Hx Substance Use: No - Immunization History Hx Tetanus Toxoid Vaccination: No Hx Influenza Vaccination: Yes (2016) Hx Pneumococcal Vaccination: Yes Review Of Systems Constitutional: Negative for: Fever, Chills Cardiovascular: Negative for: Chest Pain, Palpitations Respiratory: Negative for: Cough, Shortness of Breath Gastrointestinal: Negative for: Nausea, Vomiting, Abdominal Pain, Diarrhea, Constipation Skin: Negative for: Rash, Lesions, Jaundice, Bruising Neurological: Negative for: Weakness, Numbness Psych: Negative for: Suicidal ideation Physical Exam - Physical Exam Appears: Non-toxic, No Acute Distress Skin: Warm, Dry Head: Normacephalic Chest: Symmetrical, No Deformity, No Tenderness Cardiovascular: Rhythm Regular Respiratory: No Accessory Muscle Use Extremity: Normal ROM Neurological/Psych: Oriented x3 Gait: Steady ED Course And Treatment O2 Sat by Pulse Oximetry: 99 (on RA) Pulse Ox Interpretation: Normal Reevaluation Time: 23:38 Reassessment Condition: Improved Disposition Counseled Patient/Family Regarding: Studies Performed, Diagnosis, Need For Followup - Disposition Referrals: [facility] [Outside] Disposition: HOME/ ROUTINE Disposition Time: 19:58 Condition: FAIR Instructions: Schizophrenia (ED) Forms: [employer] [facility] (Sami) - Clinical Impression Clinical Impression: Schizophrenia, chronic condition - Scribe Statement The provider has reviewed the documentation as recorded by the Scribe (Rosi Chow) Provider Attestation: All medical record entries made by the Scribe were at my direction and personally dictated by me. I have reviewed the chart and agree that the record accurately reflects my personal performance of the history, physical exam, medical decision making, and the department course for this patient. I have also personally directed, reviewed, and agree with the discharge instructions and disposition.
== END 2017-03-18 23:33 | disposition home or self-care (01) ==
LOC: C.ER 18:38
DX: F20.9 Schizophrenia, unspecified (principal)

== ENCOUNTER 2017-03-19 18:20 | Emergency (ER) | payer MEDICARE ==
[2017-03-19 18:20] VITALS: BMI 25.9
[2017-03-19 18:28] VITALS: O2SAT 99
--- NOTE | 2017-03-19 18:39 | C.PDOC ---
History Of Present Illness 57 y/o male presents to ED for evaluation of hearing voice and requesting something to eat. Patient is a frequent ED visitor for acute ETOH intoxication and currently denies ETOH use or Suicidal ideation. No other complaints at this time. Time Seen by Provider: 03/19/17 18:31 Chief Complaint (Nursing): Psychiatric Evaluation History Per: Patient History/Exam Limitations: no limitations Onset/Duration Of Symptoms: Hrs Current Symptoms Are (Timing): Still Present Suicide/Self Injury Attempted (Context): None Modifying Factor(s): None Past Medical History Reviewed: Historical Data, Nursing Documentation, Vital Signs Vital Signs: Last Vital Signs Temp 98.5 F 03/19/17 22:45 Pulse 55 L 03/19/17 22:45 Resp 18 03/19/17 22:45 BP 138/87 03/19/17 22:45 Pulse Ox 99 04/13/17 12:56 - Medical History PMH: Anxiety, Asthma, Bipolar Disorder, Depression, Gastritis, Paranoia, Personality Disorder, Schizophrenia, Seizures, Chronic Pain (abd) Surgical History: No Surg Hx - [facility] Procedures APPLICATION OF SPLINT (04/09/14) CL FX REDUC-TIBIA/FIBULA (02/26/13) GROUP PSYCHOTHERAPY (07/30/16) INDIVID PSYCHOTHERAP NEC (12/17/13) INDIVIDUAL PSYCHOTHERAPY, BEHAVIORAL (01/29/16) INDIVIDUAL PSYCHOTHERAPY, COGNITIVE-BEHAVIORAL (07/30/16) INDIVIDUAL PSYCHOTHERAPY, SUPPORTIVE (07/22/16) MEDICATION MANAGEMENT (07/22/16) OTHER GROUP THERAPY (11/05/13) PSYCHIA INTERV/EVAL NEC (06/28/14) Family History: States: No Known Family Hx - Social History Hx Tobacco Use: Yes (heavy smoker) Hx Alcohol Use: No Hx Substance Use: No - Immunization History Hx Tetanus Toxoid Vaccination: No Hx Influenza Vaccination: Yes (2017) Hx Pneumococcal Vaccination: Yes Review Of Systems Constitutional: Negative for: Fever, Chills Cardiovascular: Negative for: Chest Pain Respiratory: Negative for: Shortness of Breath Gastrointestinal: Negative for: Nausea, Vomiting Skin: Negative for: Rash Neurological: Negative for: Weakness, Numbness Psych: Negative for: Anxiety, Suicidal ideation, Withdrawal Physical Exam - Physical Exam Appears: Non-toxic, No Acute Distress, Other (Poor hygiene, cooperative) Skin: Warm, Dry, No Rash Head: Atraumatic, Normacephalic Eye(s): bilateral: Normal Inspection Oral Mucosa: Moist Neck: Supple Cardiovascular: Rhythm Regular Respiratory: Normal Breath Sounds, No Rales, No Rhonchi, No Wheezing Gastrointestinal/Abdominal: Soft, No Tenderness, No Guarding, No Rebound Back: No CVA Tenderness Extremity: Normal ROM, Capillary Refill (<2 seconds) Neurological/Psych: Oriented x3 ED Course And Treatment O2 Sat by Pulse Oximetry: 99 (RA) Pulse Ox Interpretation: Normal Disposition - Disposition Disposition: HOME/ ROUTINE Disposition Time: 01:00 Condition: STABLE Forms: [facility] (Anguillan) - Clinical Impression Clinical Impression: Moderate major depression, single episode - Scribe Statement The provider has reviewed the documentation as recorded by the Scribalexis Puente All medical record entries made by the Scribe were at my direction and personally dictated by me. I have reviewed the chart and agree that the record accurately reflects my personal performance of the history, physical exam, medical decision making, and the department course for this patient. I have also personally directed, reviewed, and agree with the discharge instructions and disposition.
[2017-03-19 22:45] VITALS: BP 138/87; PULSE 55; RESP 18; TEMP 98.5
== END 2017-03-19 23:07 | disposition home or self-care (01) ==
LOC: C.ER 18:20
DX: F32.1 Major depressive disorder, single episode, moderate (principal); F17.210 Nicotine dependence, cigarettes, uncomplicated

== ENCOUNTER 2017-03-23 11:59 | Emergency (ER) | payer MEDICARE ==
[2017-03-23 12:10] VITALS: BMI 24.2
[2017-03-23 12:12] VITALS: BP 124/84; PULSE 95; RESP 18; TEMP 98.2; O2SAT 98
== END 2017-03-23 13:26 | disposition left against medical advice (07) ==
LOC: C.ER 11:59
DX: Z02.89 Encounter for other administrative examinations (principal); R11.10 Vomiting, unspecified

== ENCOUNTER 2017-03-23 16:53 | Emergency (ER) | payer MEDICARE ==
[2017-03-23 16:53] VITALS: BMI 24.2
[2017-03-23 17:50] VITALS: BP 122/82; PULSE 87; RESP 16; TEMP 98.6; O2SAT 98
== END 2017-03-23 17:48 | disposition left against medical advice (07) ==
LOC: C.ER 16:53
DX: Z02.89 Encounter for other administrative examinations (principal); R44.0 Auditory hallucinations

== ENCOUNTER 2017-03-24 16:54 | Emergency (ER) | payer MEDICARE ==
[2017-03-24 16:54] VITALS: BMI 24.2
[2017-03-24 17:11] VITALS: BP 116/84; PULSE 92; RESP 18; TEMP 98.5; O2SAT 96
--- NOTE | 2017-03-24 18:11 | C.PDOC ---
History Of Present Illness 57 y/o male presents to ED with complaints of abdominal pain and stating he is hearing voices telling to harm himself. Patient is well known at ED with similar complaints and at ED is requesting full tray of food. Patient denies suicidal ideation, homicidal ideation or any other physical complaints at this time. Time Seen by Provider: 03/24/17 17:39 Chief Complaint (Nursing): Abdominal Pain History Per: Patient History/Exam Limitations: no limitations Onset/Duration Of Symptoms: Days Current Symptoms Are (Timing): Still Present Past Medical History Reviewed: Historical Data, Nursing Documentation, Vital Signs Vital Signs: Last Vital Signs Temp 98.5 F 03/24/17 17:08 Pulse 92 H 03/24/17 17:08 Resp 18 03/24/17 17:08 BP 116/84 03/24/17 17:08 Pulse Ox 96 03/24/17 18:38 - Medical History PMH: Anxiety, Asthma, Bipolar Disorder, Depression, Gastritis, Paranoia, Personality Disorder, Schizophrenia, Seizures, Chronic Pain (abd) Surgical History: No Surg Hx - [facility] Procedures APPLICATION OF SPLINT (04/09/14) CL FX REDUC-TIBIA/FIBULA (02/26/13) GROUP PSYCHOTHERAPY (07/30/16) INDIVID PSYCHOTHERAP NEC (12/17/13) INDIVIDUAL PSYCHOTHERAPY, BEHAVIORAL (01/29/16) INDIVIDUAL PSYCHOTHERAPY, COGNITIVE-BEHAVIORAL (07/30/16) INDIVIDUAL PSYCHOTHERAPY, SUPPORTIVE (07/22/16) MEDICATION MANAGEMENT (07/22/16) OTHER GROUP THERAPY (11/05/13) PSYCHIA INTERV/EVAL NEC (06/28/14) Family History: States: No Known Family Hx - Social History Hx Tobacco Use: Yes (heavy smoker) Hx Alcohol Use: No Hx Substance Use: No - Immunization History Hx Tetanus Toxoid Vaccination: No Hx Influenza Vaccination: Yes (2017) Hx Pneumococcal Vaccination: Yes Review Of Systems Constitutional: Negative for: Fever, Chills Cardiovascular: Negative for: Chest Pain Respiratory: Negative for: Shortness of Breath Gastrointestinal: Positive for: Abdominal Pain. Negative for: Nausea, Vomiting , Diarrhea Musculoskeletal: Negative for: Back Pain Skin: Negative for: Rash Psych: Negative for: Suicidal ideation Physical Exam - Physical Exam Additional Physical Exam Comments: Constitutional: No acute distress. WDWN. Head: Normocephalic. Atraumatic. Eyes: PERRL. EOMI. ENT: Moist mucous membranes. Neck: Supple. Cardiovascular: Regular rate and rhythm. Chest: No tenderness. Respiratory: Clear to auscultation bilaterally. GI: Soft. Nontender. Nondistended. Normoactive bowel sounds. No rebound. No guarding. Back: No CVA and no mid-line tenderness. Musculoskeletal: No tenderness or swelling of extremities. Skin: No rash. Neurologic: Alert, no focal deficit. ED Course And Treatment O2 Sat by Pulse Oximetry: 96 (RA) Pulse Ox Interpretation: Normal Medical Decision Making Medical Decision Making: Discussed case with [facility] from [facility] who evaluated patient and states patient is at baseline with hearing voices, no further psychiatric intervention eeded at this time, pt may follow up at [facility]. Disposition Counseled Patient/Family Regarding: Diagnosis, Need For Followup - Disposition Referrals: [facility] [Outside] [facility] [Outside] Disposition: HOME/ ROUTINE Disposition Time: 18:39 Condition: STABLE Additional Instructions: Please follow up in CRC and with Medical clinic. Return to ER for any worse symptoms. 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 - Scribe Statement The provider has reviewed the documentation as recorded by the Leonard Puente All medical record entries made by the Madhavibalexis were at my direction and personally dictated by me. I have reviewed the chart and agree that the record accurately reflects my personal performance of the history, physical exam, medical decision making, and the department course for this patient. I have also personally directed, reviewed, and agree with the discharge instructions and disposition.
== END 2017-03-24 18:45 | disposition home or self-care (01) ==
LOC: C.ER 16:54
DX: F99 Mental disorder, not otherwise specified (principal); Z00.8 Encounter for other general examination; F17.210 Nicotine dependence, cigarettes, uncomplicated

== ENCOUNTER 2017-03-26 23:36 | Emergency (ER) | payer MEDICARE ==
[2017-03-26 23:36] VITALS: BMI 23.0
[2017-03-27 00:01] VITALS: RESP 14; TEMP 97.7; O2SAT 97
[2017-03-27 02:50] VITALS: BP 130/80; PULSE 80
--- NOTE | 2017-03-27 03:27 | C.PDOC ---
History Of Present Illness Pt here with etoh intoxication. HE has a chronic hs of schizophrenia Time Seen by Provider: 03/27/17 00:13 Chief Complaint (Nursing): Psychiatric Evaluation Past Medical History Vital Signs: Last Vital Signs Temp 97.7 F 03/27/17 00:00 Pulse 80 03/27/17 02:30 Resp 14 03/27/17 02:30 BP 130/80 03/27/17 02:30 Pulse Ox 97 04/09/17 03:33 - Medical History PMH: Anxiety, Asthma, Bipolar Disorder, Depression, Gastritis, Paranoia, Personality Disorder, Schizophrenia, Seizures, Chronic Pain (abd) Denies: HIV, HTN, Sexually Transmitted Disease Surgical History: No Surg Hx - [facility] Procedures APPLICATION OF SPLINT (04/09/14) CL FX REDUC-TIBIA/FIBULA (02/26/13) GROUP PSYCHOTHERAPY (07/30/16) INDIVID PSYCHOTHERAP NEC (12/17/13) INDIVIDUAL PSYCHOTHERAPY, BEHAVIORAL (01/29/16) INDIVIDUAL PSYCHOTHERAPY, COGNITIVE-BEHAVIORAL (07/30/16) INDIVIDUAL PSYCHOTHERAPY, SUPPORTIVE (07/22/16) MEDICATION MANAGEMENT (07/22/16) OTHER GROUP THERAPY (11/05/13) PSYCHIA INTERV/EVAL NEC (06/28/14) Family History: States: No Known Family Hx, Unknown Family Hx - Social History Hx Tobacco Use: Yes (heavy smoker) Hx Alcohol Use: No Hx Substance Use: No - Immunization History Hx Tetanus Toxoid Vaccination: No Hx Influenza Vaccination: Yes (2016) Hx Pneumococcal Vaccination: Yes Review Of Systems Constitutional: Negative for: Fever Eyes: Negative for: Pain ENT: Negative for: Ear Pain Cardiovascular: Negative for: Chest Pain Respiratory: Negative for: Cough Gastrointestinal: Negative for: Nausea Genitourinary: Negative for: Dysuria, Frequency Musculoskeletal: Negative for: Neck Pain Neurological: Negative for: Weakness Psych: Negative for: Anxiety Physical Exam - Physical Exam Skin: Normal Color Head: Atraumatic Eye(s): bilateral: Normal Inspection Ear(s): Bilateral: Normal Nose: Normal Chest: Symmetrical Cardiovascular: Rhythm Regular Respiratory: Normal Breath Sounds Gastrointestinal/Abdominal: Normal Exam Rectal: Deferred Back: Normal Inspection Extremity: Bilateral: Atraumatic Neurological/Psych: Oriented x3 ED Course And Treatment O2 Sat by Pulse Oximetry: 97 Medical Decision Making Medical Decision Making: pt left prior to discharge Disposition Counseled Patient/Family Regarding: Diagnosis - Disposition Disposition: HOME/ ROUTINE Disposition Time: 09:40 Condition: STABLE Forms: [employer] (Bahraini) - Clinical Impression Clinical Impression: Drug overdose, Alcohol-induced psychosis, Schizophrenia
== END 2017-03-27 03:00 | disposition home or self-care (01) ==
LOC: C.ER 23:36
DX: F20.9 Schizophrenia, unspecified (principal); F10.959 Alcohol use, unspecified with alcohol-induced psychotic disorder, unspecified; T50.901A Poisoning by unspecified drugs, medicaments and biological substances, accidental (unintentional), initial encounter; F17.210 Nicotine dependence, cigarettes, uncomplicated

== ENCOUNTER 2017-03-27 14:27 | Emergency (ER) | payer MEDICARE ==
[2017-03-27 14:37] VITALS: BMI 23.7
[2017-03-27 14:39] VITALS: BP 120/77; PULSE 106; RESP 18; TEMP 98.8; O2SAT 98
== END 2017-03-27 14:39 | disposition left against medical advice (07) ==
LOC: C.ER 14:27
DX: Z02.89 Encounter for other administrative examinations (principal); R44.3 Hallucinations, unspecified

== ENCOUNTER 2017-03-28 01:35 | Emergency (ER) | payer MEDICARE ==
[2017-03-28 01:36] VITALS: BMI 23.7
[2017-03-28 01:56] VITALS: RESP 18
--- NOTE | 2017-03-28 04:34 | C.PDOC ---
History Of Present Illness 57 yo male requests a place to sleep until the morning. Says he hears voices but denies suicidality. Admits to alcohol intake. Time Seen by Provider: 03/28/17 02:09 Chief Complaint (Nursing): Medical Clearance Past Medical History Vital Signs: Last Vital Signs Temp 98.7 F 03/28/17 04:42 Pulse 75 03/28/17 04:42 Resp 18 03/28/17 04:42 BP 113/72 03/28/17 04:42 Pulse Ox 97 03/28/17 04:42 - Medical History PMH: Anxiety, Asthma, Bipolar Disorder, Depression, Gastritis, Paranoia, Personality Disorder, Schizophrenia, Seizures, Chronic Pain (abd) Denies: Diabetes, Hepatitis, HIV, HTN, Sexually Transmitted Disease Surgical History: - [facility] Procedures APPLICATION OF SPLINT (04/09/14) CL FX REDUC-TIBIA/FIBULA (02/26/13) GROUP PSYCHOTHERAPY (07/30/16) INDIVID PSYCHOTHERAP NEC (12/17/13) INDIVIDUAL PSYCHOTHERAPY, BEHAVIORAL (01/29/16) INDIVIDUAL PSYCHOTHERAPY, COGNITIVE-BEHAVIORAL (07/30/16) INDIVIDUAL PSYCHOTHERAPY, SUPPORTIVE (07/22/16) MEDICATION MANAGEMENT (07/22/16) OTHER GROUP THERAPY (11/05/13) PSYCHIA INTERV/EVAL NEC (06/28/14) Family History: States: No Known Family Hx - Social History Hx Tobacco Use: Yes (heavy smoker) Hx Alcohol Use: No Hx Substance Use: No - Immunization History Hx Tetanus Toxoid Vaccination: No Hx Influenza Vaccination: Yes (2017) Hx Pneumococcal Vaccination: Yes Physical Exam - Physical Exam Appears: Non-toxic, No Acute Distress, Unkempt Skin: Normal Color, No Rash Head: Atraumatic Eye(s): bilateral: PERRL, EOMI Oral Mucosa: Moist Neck: Normal, No Paracervical Tenderness Chest: Symmetrical Cardiovascular: Rhythm Regular Respiratory: Normal Breath Sounds Gastrointestinal/Abdominal: Normal Exam Extremity: Normal ROM, No Tenderness Neurological/Psych: No Oriented x3, No Normal Speech, No Normal Cognition, Cerebellar Signs, Eyes Open With Command, Slow To Respond With Command Pain Response: Withdraws With Pain Disoriented To: Time, Situation Gait: Unsteady ED Course And Treatment O2 Sat by Pulse Oximetry: 100 Disposition - Disposition Disposition: HOME/ ROUTINE Disposition Time: 04:50 Condition: IMPROVED Forms: [facility] (Swiss) - Clinical Impression Clinical Impression: Homeless, Encounter for limited medical examination
[2017-03-28 04:43] VITALS: BP 113/72; PULSE 75; TEMP 98.7
[2017-03-28 04:47] VITALS: O2SAT 100
== END 2017-03-28 04:58 | disposition home or self-care (01) ==
LOC: C.ER 01:35
DX: Z04.8 Encounter for examination and observation for other specified reasons (principal); Z59.0 Homelessness

== ENCOUNTER 2017-04-01 00:06 | Emergency (ER) | payer MEDICARE ==
[2017-04-01 00:06] VITALS: BMI 23.7
--- NOTE | 2017-04-01 00:13 | C.PDOC ---
History Of Present Illness 57 year old male presents to the ER requesting a place to spend the night. Denies physical complaints at this time. Time Seen by Provider: 04/01/17 00:10 History Per: Patient History/Exam Limitations: no limitations Onset/Duration Of Symptoms: Hrs Current Symptoms Are (Timing): Still Present Recent travel outside of the [place]: No Past Medical History Reviewed: Historical Data, Nursing Documentation, Vital Signs Vital Signs: Last Vital Signs Temp 97.7 F 04/01/17 00:49 Pulse 107 H 04/01/17 00:49 Resp 20 04/01/17 00:49 BP 122/75 04/01/17 00:49 Pulse Ox 100 04/01/17 00:49 - Medical History PMH: Anxiety, Asthma, Bipolar Disorder, Depression, Gastritis, Paranoia, Personality Disorder, Schizophrenia, Seizures, Chronic Pain (abd) Surgical History: - [facility] Procedures APPLICATION OF SPLINT (04/09/14) CL FX REDUC-TIBIA/FIBULA (02/26/13) GROUP PSYCHOTHERAPY (07/30/16) INDIVID PSYCHOTHERAP NEC (12/17/13) INDIVIDUAL PSYCHOTHERAPY, BEHAVIORAL (01/29/16) INDIVIDUAL PSYCHOTHERAPY, COGNITIVE-BEHAVIORAL (07/30/16) INDIVIDUAL PSYCHOTHERAPY, SUPPORTIVE (07/22/16) MEDICATION MANAGEMENT (07/22/16) OTHER GROUP THERAPY (11/05/13) PSYCHIA INTERV/EVAL NEC (06/28/14) Family History: States: Unknown Family Hx - Social History Hx Tobacco Use: Yes (heavy smoker) Hx Alcohol Use: No Hx Substance Use: No - Immunization History Hx Tetanus Toxoid Vaccination: No Hx Influenza Vaccination: Yes (2016) Hx Pneumococcal Vaccination: Yes Review Of Systems Constitutional: Negative for: Fever, Chills Gastrointestinal: Negative for: Nausea, Vomiting, Diarrhea Physical Exam - Physical Exam Appears: Non-toxic, No Acute Distress Skin: Normal Color, Warm, Dry Head: Atraumatic, Normacephalic Eye(s): bilateral: Normal Inspection Oral Mucosa: Moist Chest: Symmetrical, No Tenderness Cardiovascular: Rhythm Regular Respiratory: Normal Breath Sounds, No Rales, No Rhonchi, No Wheezing Gastrointestinal/Abdominal: Soft, No Tenderness Neurological/Psych: Oriented x3, Normal Speech Medical Decision Making Medical Decision Making: chronic schizo WITH a home to go to. Malingering looking for a nightly place to stay by choice but not by need Reassured pt CAN go to his sister's house to stay tonight. Disposition Doctor Will See Patient In The: Office Counseled Patient/Family Regarding: Studies Performed, Diagnosis - Disposition Referrals: [facility] [Outside] [facility] [Outside] Disposition: HOME/ ROUTINE Disposition Time: 00:13 Condition: GOOD Additional Instructions: seek nightly senior care placement of your choice you may NOT stay in the ER overnight without an acute medical concern. Instructions: Schizoaffective Disorder (ED) - Clinical Impression Clinical Impression: Schizoaffective disorder, Malingering - Scribe Statement The provider has reviewed the documentation as recorded by the Scribe Howard Gottlieb All medical record entries made by the Scribe were at my direction and personally dictated by me. I have reviewed the chart and agree that the record accurately reflects my personal performance of the history, physical exam, medical decision making, and the department course for this patient. I have also personally directed, reviewed, and agree with the discharge instructions and disposition. Physician Patient Turnover Patient Signed Over To: Suman Nunez Handoff Comments: dispo in AM
[2017-04-01 00:52] VITALS: BP 122/75; PULSE 107; RESP 20; TEMP 97.7; O2SAT 100
== END 2017-04-01 01:59 | disposition home or self-care (01) ==
LOC: C.ER 00:06
DX: F25.9 Schizoaffective disorder, unspecified (principal); Z76.5 Malingerer [conscious simulation]; F17.210 Nicotine dependence, cigarettes, uncomplicated

== ENCOUNTER 2017-04-02 15:45 | Emergency (ER) | payer MEDICARE ==
[2017-04-02 15:46] VITALS: BMI 23.7
[2017-04-02 16:30] VITALS: BP 145/86; PULSE 99; RESP 20; TEMP 99; O2SAT 95
--- NOTE | 2017-04-02 17:05 | C.PDOC ---
History Of Present Illness I went to go examine the patient but patient was no where to be found. Patient left without being seen or evaluated. Time Seen by Provider: 04/02/17 16:35 Chief Complaint (Nursing): Foreign Body Past Medical History Vital Signs: Last Vital Signs Temp 99 F 04/02/17 16:24 Pulse 99 H 04/02/17 16:24 Resp 20 04/02/17 16:24 BP 145/86 04/02/17 16:24 Pulse Ox 95 04/02/17 17:09 - Medical History PMH: Anxiety, Asthma, Bipolar Disorder, Depression, Gastritis, Paranoia, Personality Disorder, Schizophrenia, Seizures, Chronic Pain (abd) Denies: Diabetes, Hepatitis, HIV, HTN, Sexually Transmitted Disease Surgical History: - [facility] Procedures APPLICATION OF SPLINT (04/09/14) CL FX REDUC-TIBIA/FIBULA (02/26/13) GROUP PSYCHOTHERAPY (07/30/16) INDIVID PSYCHOTHERAP NEC (12/17/13) INDIVIDUAL PSYCHOTHERAPY, BEHAVIORAL (01/29/16) INDIVIDUAL PSYCHOTHERAPY, COGNITIVE-BEHAVIORAL (07/30/16) INDIVIDUAL PSYCHOTHERAPY, SUPPORTIVE (07/22/16) MEDICATION MANAGEMENT (07/22/16) OTHER GROUP THERAPY (11/05/13) PSYCHIA INTERV/EVAL NEC (06/28/14) Family History: States: Unknown Family Hx - Social History Hx Tobacco Use: Yes (heavy smoker) Hx Alcohol Use: No Hx Substance Use: No - Immunization History Hx Tetanus Toxoid Vaccination: No Hx Influenza Vaccination: Yes (2016) Hx Pneumococcal Vaccination: Yes ED Course And Treatment O2 Sat by Pulse Oximetry: 95 Disposition Counseled Patient/Family Regarding: Studies Performed, Diagnosis, Need For Followup - Disposition Referrals: [facility] [Other] Disposition: LEFT W/O BEING SEEN - ER ONLY Disposition Time: 17:02 Condition: STABLE Instructions: Foreign Body Ingestion (ED) Forms: [employer] (Ugandan) - Clinical Impression Clinical Impression: Swallowed foreign body - Scribe Statement The provider has reviewed the documentation as recorded by the Madhavibe Odalys Tucker Provider Attestation: All medical record entries made by the Scribe were at my direction and personally dictated by me. I have reviewed the chart and agree that the record accurately reflects my personal performance of the history, physical exam, medical decision making, and the department course for this patient. I have also personally directed, reviewed, and agree with the discharge instructions and disposition.
--- NOTE | 2017-04-02 17:08 | RAD ---
HISTORY: FOREIGN BODY COMPARISON: No prior. FINDINGS: Sign BOWEL: No radiopaque foreign body noted. No obstruction. No free air. Moderate left and right stool retention BONES: Hip arthrosis. Partially visualized proximal right femoral intramedullary izabel OTHER FINDINGS: None. IMPRESSION: No radiopaque foreign body noted. No obstruction. No free air. Moderate left and right stool retention Hip arthrosis. Partially visualized proximal right femoral intramedullary izabel
== END 2017-04-02 16:35 | disposition left against medical advice (07) ==
LOC: C.ER 15:45
DX: Z02.89 Encounter for other administrative examinations (principal); T18.9XXA Foreign body of alimentary tract, part unspecified, initial encounter
CPT/HCPCS: 74000; LWBS0

== ENCOUNTER 2017-04-05 23:11 | Emergency (ER) | payer MEDICARE ==
[2017-04-05 23:13] VITALS: BMI 23.7
[2017-04-06 02:05] VITALS: RESP 20
--- NOTE | 2017-04-06 02:40 | C.PDOC ---
History Of Present Illness 57 year old male presents to the ER requesting a place to spend the night. Patient reports having abdominal pain and hearing voices. Denies physical complaints at this time, SI/HI. Time Seen by Provider: 04/06/17 00:03 Chief Complaint (Nursing): Medical Clearance History Per: Patient History/Exam Limitations: no limitations Onset/Duration Of Symptoms: Hrs Current Symptoms Are (Timing): Still Present Reports Recently: Seen In ED (04/03/17 ) Recent travel outside of the [place]: No Additional History Per: Patient Past Medical History Reviewed: Historical Data, Nursing Documentation, Vital Signs Vital Signs: Last Vital Signs Temp 98.0 F 04/06/17 04:00 Pulse 72 04/06/17 04:00 Resp 20 04/06/17 04:00 BP 123/80 04/06/17 04:00 Pulse Ox 97 04/06/17 04:00 - Medical History PMH: Anxiety, Asthma, Bipolar Disorder, Depression, Gastritis, Paranoia, Personality Disorder, Schizophrenia, Seizures, Chronic Pain (abd) Denies: Diabetes, Hepatitis, HIV, HTN, Sexually Transmitted Disease Surgical History: No Surg Hx - [facility] Procedures APPLICATION OF SPLINT (04/09/14) CL FX REDUC-TIBIA/FIBULA (02/26/13) GROUP PSYCHOTHERAPY (07/30/16) INDIVID PSYCHOTHERAP NEC (12/17/13) INDIVIDUAL PSYCHOTHERAPY, BEHAVIORAL (01/29/16) INDIVIDUAL PSYCHOTHERAPY, COGNITIVE-BEHAVIORAL (07/30/16) INDIVIDUAL PSYCHOTHERAPY, SUPPORTIVE (07/22/16) MEDICATION MANAGEMENT (07/22/16) OTHER GROUP THERAPY (11/05/13) PSYCHIA INTERV/EVAL NEC (06/28/14) Family History: States: Unknown Family Hx - Social History Hx Tobacco Use: Yes (heavy smoker) Hx Alcohol Use: No Hx Substance Use: No - Immunization History Hx Tetanus Toxoid Vaccination: No Hx Influenza Vaccination: Yes (2017) Hx Pneumococcal Vaccination: Yes Review Of Systems Constitutional: Negative for: Fever, Chills Cardiovascular: Negative for: Chest Pain, Palpitations Respiratory: Negative for: Cough, Shortness of Breath Gastrointestinal: Positive for: Abdominal Pain. Negative for: Nausea, Vomiting Skin: Negative for: Rash Neurological: Negative for: Weakness, Numbness, Headache Psych: Negative for: Depression, Suicidal ideation Physical Exam - Physical Exam Appears: Non-toxic, Unkempt Skin: Normal Color, Warm, Dry Head: Atraumatic, Normacephalic Nose: No Discharge, No Deformity Oral Mucosa: Moist Neck: Normal ROM, Supple Chest: Symmetrical Cardiovascular: Rhythm Regular, No Murmur Respiratory: Normal Breath Sounds, No Rales, No Rhonchi, No Wheezing Gastrointestinal/Abdominal: Soft, No Tenderness, No Guarding, No Rebound Extremity: Normal ROM, No Pedal Edema, No Calf Tenderness, No Deformity, No Swelling Neurological/Psych: Oriented x3, Normal Speech Gait: Steady ED Course And Treatment O2 Sat by Pulse Oximetry: 98 (On RA) Pulse Ox Interpretation: Normal Medical Decision Making Medical Decision Makin- stable for d/c. Disposition Doctor Will See Patient In The: Office Counseled Patient/Family Regarding: Studies Performed, Diagnosis - Disposition Disposition: HOME/ ROUTINE Disposition Time: 04:50 Condition: GOOD Forms: [facility] (Surinamese) - Clinical Impression Clinical Impression: Schizophrenia - Scribe Statement The provider has reviewed the documentation as recorded by the Scribalexis Jett All medical record entries made by the Scribe were at my direction and personally dictated by me. I have reviewed the chart and agree that the record accurately reflects my personal performance of the history, physical exam, medical decision making, and the department course for this patient. I have also personally directed, reviewed, and agree with the discharge instructions and disposition.
[2017-04-06 04:18] VITALS: BP 123/80; PULSE 72; TEMP 98
[2017-04-06 04:51] VITALS: O2SAT 98
== END 2017-04-06 05:54 | disposition home or self-care (01) ==
LOC: C.ER 23:11
DX: F20.9 Schizophrenia, unspecified (principal)

== ENCOUNTER 2017-04-06 13:49 | Emergency (ER) | payer MEDICARE ==
[2017-04-06 13:49] VITALS: BMI 23.7
[2017-04-06 14:17] VITALS: BP 175/71; PULSE 105; RESP 18; TEMP 99.2; O2SAT 95
--- NOTE | 2017-04-06 14:55 | C.PDOC ---
History Of Present Illness 57 year old male presents to the ER stating he is here "visiting lizette". Contrary to triage, patient denies any suicidal ideation or physical complaints at this time and states he would like to go home now. Time Seen by Provider: 04/06/17 14:23 Chief Complaint (Nursing): Psychiatric Evaluation History Per: Patient History/Exam Limitations: no limitations Suicide/Self Injury Attempted (Context): None Associated Symptoms: denies: Depression, Suicidal Thoughts, Suicidal Plan Involuntary Hold By: None Recent travel outside of the [place]: No Past Medical History Reviewed: Historical Data, Nursing Documentation, Vital Signs Vital Signs: Last Vital Signs Temp 99.2 F 04/06/17 14:12 Pulse 105 H 04/06/17 14:12 Resp 18 04/06/17 14:12 BP 175/71 H 04/06/17 14:12 Pulse Ox 95 04/06/17 15:04 - Medical History PMH: Anxiety, Asthma, Bipolar Disorder, Depression, Gastritis, Paranoia, Personality Disorder, Schizophrenia, Seizures, Chronic Pain (abd) Surgical History: - [facility] Procedures APPLICATION OF SPLINT (04/09/14) CL FX REDUC-TIBIA/FIBULA (02/26/13) GROUP PSYCHOTHERAPY (07/30/16) INDIVID PSYCHOTHERAP NEC (12/17/13) INDIVIDUAL PSYCHOTHERAPY, BEHAVIORAL (01/29/16) INDIVIDUAL PSYCHOTHERAPY, COGNITIVE-BEHAVIORAL (07/30/16) INDIVIDUAL PSYCHOTHERAPY, SUPPORTIVE (07/22/16) MEDICATION MANAGEMENT (07/22/16) OTHER GROUP THERAPY (11/05/13) PSYCHIA INTERV/EVAL NEC (06/28/14) Family History: States: Unknown Family Hx - Social History Hx Tobacco Use: Yes (heavy smoker) Hx Alcohol Use: No Hx Substance Use: No - Immunization History Hx Tetanus Toxoid Vaccination: No Hx Influenza Vaccination: Yes (2017) Hx Pneumococcal Vaccination: Yes Review Of Systems Except As Marked, All Systems Reviewed And Found Negative. Physical Exam - Physical Exam Appears: Non-toxic, No Acute Distress Skin: Normal Color, Warm Head: Atraumatic, Normacephalic Eye(s): bilateral: Normal Inspection, PERRL, EOMI Oral Mucosa: Moist Neck: Normal ROM, Supple Chest: Symmetrical, No Tenderness Cardiovascular: Rhythm Regular Respiratory: Normal Breath Sounds, No Accessory Muscle Use Gastrointestinal/Abdominal: Normal Exam, Soft, No Tenderness Back: Normal Inspection, No CVA Tenderness Extremity: Normal ROM Neurological/Psych: Oriented x3, Normal Speech, Normal Motor, Normal Sensation Gait: Steady ED Course And Treatment O2 Sat by Pulse Oximetry: 95 (on RA) Pulse Ox Interpretation: Normal Progress Note: The patient states that he has no complaints and is requesting to be discharged at this time. Patient's vitals and physical exam are WNLs and will be discharged. Disposition - Disposition Referrals: [facility] [Outside] Disposition: HOME/ ROUTINE Disposition Time: 15:00 Condition: GOOD Additional Instructions: Follow up with the medical doctor within 1-2 days. Return if worsened. Instructions: Schizophrenia (ED) Forms: [employer] (Azeri) - Clinical Impression Clinical Impression: Malingering - PA / GREY PERCHER / Resident Statement MD/DO has reviewed & agrees with the documentation as recorded. - Scribe Statement The provider has reviewed the documentation as recorded by the Scribe Howard Gottlieb All medical record entries made by the Scribe were at my direction and personally dictated by me. I have reviewed the chart and agree that the record accurately reflects my personal performance of the history, physical exam, medical decision making, and the department course for this patient. I have also personally directed, reviewed, and agree with the discharge instructions and disposition.
== END 2017-04-06 15:00 | disposition home or self-care (01) ==
LOC: C.ER 13:49
DX: Z76.5 Malingerer [conscious simulation] (principal); F17.210 Nicotine dependence, cigarettes, uncomplicated

== ENCOUNTER 2017-04-16 02:28 | Emergency (ER) | payer MEDICARE ==
[2017-04-16 02:28] VITALS: BMI 23.0
[2017-04-16 02:41] VITALS: BP 128/82; PULSE 91; RESP 20; TEMP 98.2; O2SAT 98
--- NOTE | 2017-04-16 04:25 | C.PDOC ---
History Of Present Illness 57 yo male come in for evaluation of abdominal pain, vomiting early today. Pt admits, was seen at [facility] early today ( bracelet on wrist noted) due to same complaints, discharged. Pt request place to sleep, drinking orange juice, not in any apparent distress. Pt denies suicidal/homocidal ideation. APpears comfortable, not in any apparent distress. FYI: previous ED records review, multiple visit due to same complaints. Pt was seen in [place] ED for past few days. Time Seen by Provider: 04/16/17 02:43 Chief Complaint (Nursing): Abdominal Pain History Per: Patient Past Medical History Reviewed: Historical Data, Nursing Documentation, Vital Signs Vital Signs: Last Vital Signs Temp 98.2 F 04/16/17 02:37 Pulse 91 H 04/16/17 02:37 Resp 20 04/16/17 02:37 BP 128/82 04/16/17 02:37 Pulse Ox 98 04/16/17 05:30 - Medical History PMH: Anxiety, Asthma, Bipolar Disorder, Depression, Gastritis, Paranoia, Personality Disorder, Schizophrenia, Seizures, Chronic Pain (abd) Denies: Diabetes, Hepatitis, HIV, HTN, Sexually Transmitted Disease Surgical History: - [facility] Procedures APPLICATION OF SPLINT (04/09/14) CL FX REDUC-TIBIA/FIBULA (02/26/13) GROUP PSYCHOTHERAPY (07/30/16) INDIVID PSYCHOTHERAP NEC (12/17/13) INDIVIDUAL PSYCHOTHERAPY, BEHAVIORAL (01/29/16) INDIVIDUAL PSYCHOTHERAPY, COGNITIVE-BEHAVIORAL (07/30/16) INDIVIDUAL PSYCHOTHERAPY, SUPPORTIVE (07/22/16) MEDICATION MANAGEMENT (07/22/16) OTHER GROUP THERAPY (11/05/13) PSYCHIA INTERV/EVAL NEC (06/28/14) Family History: States: Unknown Family Hx - Social History Hx Tobacco Use: Yes (heavy smoker) Hx Alcohol Use: No Hx Substance Use: No - Immunization History Hx Tetanus Toxoid Vaccination: No Hx Influenza Vaccination: Yes (2016) Hx Pneumococcal Vaccination: Yes Review Of Systems Except As Marked, All Systems Reviewed And Found Negative. Constitutional: Negative for: Fever, Chills ENT: Negative for: Throat Pain Gastrointestinal: Positive for: Vomiting, Abdominal Pain. Negative for: Nausea , Diarrhea, Melena, Hematochezia, Hematemesis Musculoskeletal: Negative for: Neck Pain, Back Pain Skin: Negative for: Rash Neurological: Negative for: Altered Mental Status Physical Exam - Physical Exam Appears: Well, Non-toxic, No Acute Distress Skin: Normal Color, Warm, Dry, No Rash Head: Atraumatic, Normacephalic Eye(s): bilateral: PERRL Nose: No Flaring, No Discharge Oral Mucosa: Moist, No Drooling, Other ((+)strong alcohol odor) Tongue: Normal Appearing Lips: Normal Appearing Throat: No Erythema, No Exudate, No Drooling Neck: Trachea Midline, Supple Cardiovascular: Rhythm Regular Respiratory: No Decreased Breath Sounds, No Accessory Muscle Use, No Stridor, No Wheezing Gastrointestinal/Abdominal: Soft, No Tenderness, No Organomegaly, No Distention , No Guarding Back: No CVA Tenderness Extremity: Normal ROM, No Pedal Edema, No Deformity, No Swelling Neurological/Psych: Oriented x3, Normal Speech ED Course And Treatment O2 Sat by Pulse Oximetry: 98 Pulse Ox Interpretation: Normal Progress Note: On re-eval, pt is afebrile, hemodynamicaly stable. Non-toxic. AMbulatory in ED with stable gait, tolerate PO well in ED. Neck: SUpple,. Lungs: CTA B/L, BS equal B/L. ABd: benign, (-) guaridng, (-) rebound. FSBS 98. Pt advised, stable for discharge now. ref. to F/u with PMD in 2-3 days for re-eavl. return to ED if any worsening or new changes. Disposition Counseled Patient/Family Regarding: Studies Performed, Diagnosis, Need For Followup - Disposition Disposition: HOME/ ROUTINE Disposition Time: 05:20 Condition: STABLE Instructions: Schizophrenia (ED) Forms: [employer] (Wallisian) - Clinical Impression Clinical Impression: Psychiatric disorder
== END 2017-04-16 05:30 | disposition home or self-care (01) ==
LOC: C.ER 02:28
DX: F99 Mental disorder, not otherwise specified (principal); F17.210 Nicotine dependence, cigarettes, uncomplicated

== ENCOUNTER 2017-04-20 08:57 | Emergency (ER) | payer MEDICARE ==
[2017-04-20 08:58] VITALS: BMI 23.0
[2017-04-20 09:03] VITALS: RESP 18; TEMP 97.8
--- NOTE | 2017-04-20 09:52 | C.PDOC ---
History Of Present Illness R TOE INJURY ONSET YESTERDAY. PS BOX FELL ONTO TOE. CO TOE SWELLING AND "NAIL CAME OFF". DENIES OTHER ASSOC INJURY OR SX EXAM NONTOXIC EXT R FOOT +CONTUSION R 1 TOE. NAIL INTACT, NO SUBUNG HEMATOMA NO DEFORM SKIN INTACT REMAINDE RNEG R TOE XRAY NEG Time Seen by Provider: 04/20/17 09:38 Chief Complaint (Nursing): Lower Extremity Problem/Injury History Per: Patient History/Exam Limitations: no limitations Onset/Duration Of Symptoms: Days (1) Current Symptoms Are (Timing): Still Present Past Medical History Reviewed: Historical Data, Nursing Documentation, Vital Signs Vital Signs: Last Vital Signs Temp 97.8 F 04/20/17 09:01 Pulse 92 H 04/20/17 10:33 Resp 18 04/20/17 10:33 BP 130/80 04/20/17 10:33 Pulse Ox 99 04/20/17 10:33 - Medical History PMH: Anxiety, Asthma, Bipolar Disorder, Depression, Gastritis, Paranoia, Personality Disorder, Schizophrenia, Seizures, Chronic Pain (abd) Surgical History: - [facility] Procedures APPLICATION OF SPLINT (04/09/14) CL FX REDUC-TIBIA/FIBULA (02/26/13) GROUP PSYCHOTHERAPY (07/30/16) INDIVID PSYCHOTHERAP NEC (12/17/13) INDIVIDUAL PSYCHOTHERAPY, BEHAVIORAL (01/29/16) INDIVIDUAL PSYCHOTHERAPY, COGNITIVE-BEHAVIORAL (07/30/16) INDIVIDUAL PSYCHOTHERAPY, SUPPORTIVE (07/22/16) MEDICATION MANAGEMENT (07/22/16) OTHER GROUP THERAPY (11/05/13) PSYCHIA INTERV/EVAL NEC (06/28/14) Family History: States: No Known Family Hx - Social History Hx Tobacco Use: Yes (heavy smoker) Hx Alcohol Use: No Hx Substance Use: No - Immunization History Hx Tetanus Toxoid Vaccination: No Hx Influenza Vaccination: Yes (2017) Hx Pneumococcal Vaccination: Yes Review Of Systems Except As Marked, All Systems Reviewed And Found Negative. Musculoskeletal: Positive for: Other ((+) right toe injury, swelling). Negative for: Leg Pain Neurological: Negative for: Weakness, Numbness Physical Exam - Physical Exam Appears: Non-toxic, No Acute Distress Skin: Warm, Dry, No Rash Head: Atraumatic, Normacephalic Oral Mucosa: Moist Respiratory: Normal Breath Sounds Extremity: No Deformity, Other (Right Foot - Contusion to the right 1st toe, nail intact, no subungal hematoma, no deformity) Neurological/Psych: Oriented x3, Normal Speech, Normal Motor ED Course And Treatment O2 Sat by Pulse Oximetry: 100 (RA) Pulse Ox Interpretation: Normal - Other Rad X-Ray - Right Foot, Great Toe X-Ray: Interpreted by Me, Viewed By Me Interpretation: NEG Medical Decision Making Medical Decision Making: PLAN: * X-Ray - Right Foot, Great Toe Disposition Counseled Patient/Family Regarding: Studies Performed, Diagnosis, Need For Followup - Disposition Referrals: [facility] [Outside] [facility] [Outside] Disposition: HOME/ ROUTINE Disposition Time: 10:21 Condition: IMPROVED Instructions: Foot Contusion (ED) Forms: [facility] [facility] (Hebrew) - Clinical Impression Clinical Impression: Toe contusion - Scribe Statement The provider has reviewed the documentation as recorded by the Scribe Odalys Tucker Provider Attestation: All medical record entries made by the Scribe were at my direction and personally dictated by me. I have reviewed the chart and agree that the record accurately reflects my personal performance of the history, physical exam, medical decision making, and the department course for this patient. I have also personally directed, reviewed, and agree with the discharge instructions and disposition.
[2017-04-20 10:34] VITALS: BP 130/80; PULSE 92
[2017-04-20 10:42] VITALS: O2SAT 100
--- NOTE | 2017-04-20 10:48 | RAD ---
PROCEDURE: Radiographs of the right great toe. TECHNIQUE:: AP radiograph of the right foot, with oblique and lateral view of the right great toe. COMPARISON: None available. FINDINGS: BONES: No acute displaced fracture identified. JOINTS: No dislocation. SOFT TISSUES: Unremarkable. No evidence of radiopaque foreign body. OTHER FINDINGS: None. IMPRESSION: No acute displaced fracture identified.
== END 2017-04-20 10:35 | disposition home or self-care (01) ==
LOC: C.ER 08:57
DX: S90.111A Contusion of right great toe without damage to nail, initial encounter (principal); W22.8XXA Striking against or struck by other objects, initial encounter

== ENCOUNTER 2017-04-20 20:38 | Emergency (ER) | payer MEDICARE ==
[2017-04-20 20:38] VITALS: BMI 23.0
[2017-04-20 21:16] VITALS: RESP 18; O2SAT 98
--- NOTE | 2017-04-20 22:59 | C.PDOC ---
History Of Present Illness pt presentes with his usual complaints of hearing voices, but he states that he really wants a place to sleep. Denies any suicidal or homicidal ideation. Time Seen by Provider: 04/20/17 22:58 Chief Complaint (Nursing): Psychiatric Evaluation History Per: Patient History/Exam Limitations: no limitations Onset/Duration Of Symptoms: Days Current Symptoms Are (Timing): Still Present Suicide/Self Injury Attempted (Context): None Modifying Factor(s): None Severity: None Associated Symptoms: denies: Anxiety, Suicidal Thoughts Involuntary Hold By: None Recent travel outside of the [place]: No Additional History Per: Patient Past Medical History Reviewed: Historical Data, Nursing Documentation, Vital Signs Vital Signs: Last Vital Signs Temp 98 F 04/21/17 02:37 Pulse 87 04/21/17 02:37 Resp 18 04/21/17 02:37 BP 143/69 04/21/17 02:37 Pulse Ox 98 04/21/17 02:37 - Medical History PMH: Anxiety, Asthma, Bipolar Disorder, Depression, Gastritis, Paranoia, Personality Disorder, Schizophrenia, Seizures, Chronic Pain (abd) Denies: Diabetes, Hepatitis, HIV, HTN, Sexually Transmitted Disease Surgical History: - [facility] Procedures APPLICATION OF SPLINT (04/09/14) CL FX REDUC-TIBIA/FIBULA (02/26/13) GROUP PSYCHOTHERAPY (07/30/16) INDIVID PSYCHOTHERAP NEC (12/17/13) INDIVIDUAL PSYCHOTHERAPY, BEHAVIORAL (01/29/16) INDIVIDUAL PSYCHOTHERAPY, COGNITIVE-BEHAVIORAL (07/30/16) INDIVIDUAL PSYCHOTHERAPY, SUPPORTIVE (07/22/16) MEDICATION MANAGEMENT (07/22/16) OTHER GROUP THERAPY (11/05/13) PSYCHIA INTERV/EVAL NEC (06/28/14) Family History: States: No Known Family Hx - Social History Hx Tobacco Use: Yes (heavy smoker) Hx Alcohol Use: No Hx Substance Use: No - Immunization History Hx Tetanus Toxoid Vaccination: No Hx Influenza Vaccination: Yes (2017) Hx Pneumococcal Vaccination: Yes Review Of Systems Constitutional: Negative for: Fever Cardiovascular: Negative for: Chest Pain Respiratory: Negative for: Shortness of Breath Gastrointestinal: Negative for: Nausea, Abdominal Pain Skin: Negative for: Rash Neurological: Negative for: Weakness Psych: Negative for: Suicidal ideation Physical Exam - Physical Exam Appears: Non-toxic, No Acute Distress Skin: Warm, Dry Neck: Supple Chest: Symmetrical Cardiovascular: Rhythm Regular Respiratory: No Rales, No Rhonchi Gastrointestinal/Abdominal: Soft, No Tenderness Extremity: Normal ROM Neurological/Psych: Oriented x3 Gait: Steady ED Course And Treatment O2 Sat by Pulse Oximetry: 98 Pulse Ox Interpretation: Normal Reevaluation Time: 02:40 Reassessment Condition: Improved Disposition Counseled Patient/Family Regarding: Studies Performed, Diagnosis, Need For Followup - Disposition Referrals: [facility] [Outside] Disposition: HOME/ ROUTINE Disposition Time: 22:58 Condition: FAIR Instructions: Schizophrenia (ED) Forms: [facility] (Setswana) - Clinical Impression Clinical Impression: Schizophrenia
[2017-04-21 02:39] VITALS: BP 143/69; PULSE 87; TEMP 98
== END 2017-04-21 02:47 | disposition home or self-care (01) ==
LOC: C.ER 20:38
DX: F20.9 Schizophrenia, unspecified (principal)

== ENCOUNTER 2017-04-21 11:41 | Emergency (ER) | payer MEDICARE ==
[2017-04-21 11:41] VITALS: BMI 23.0
[2017-04-21 12:09] VITALS: BP 141/90; PULSE 96; RESP 18; TEMP 98.6; O2SAT 99
--- NOTE | 2017-04-21 12:14 | C.PDOC ---
History Of Present Illness 57-year-old homeless male, PMHx includes Schizophrenia, Bipolar Disorder and Gastritis, presents to the emergency department with complaints of auditory hallucinations. Patient has been seen in this ER and [place] ER for same complaint, several times in the past. No SI/HI. No other complaints at this time. Time Seen by Provider: 04/21/17 12:12 Chief Complaint (Nursing): Abdominal Pain History Per: Patient History/Exam Limitations: no limitations Past Medical History Reviewed: Historical Data, Nursing Documentation, Vital Signs Vital Signs: Last Vital Signs Temp 98.6 F 04/21/17 12:05 Pulse 96 H 04/21/17 12:05 Resp 18 04/21/17 12:48 BP 141/90 04/21/17 12:05 Pulse Ox 99 04/21/17 12:23 - Medical History PMH: Anxiety, Asthma, Bipolar Disorder, Depression, Gastritis, Paranoia, Personality Disorder, Schizophrenia, Seizures, Chronic Pain (abd) Denies: Diabetes, Hepatitis, HIV, HTN, Sexually Transmitted Disease Surgical History: - [facility] Procedures APPLICATION OF SPLINT (04/09/14) CL FX REDUC-TIBIA/FIBULA (02/26/13) GROUP PSYCHOTHERAPY (07/30/16) INDIVID PSYCHOTHERAP NEC (12/17/13) INDIVIDUAL PSYCHOTHERAPY, BEHAVIORAL (01/29/16) INDIVIDUAL PSYCHOTHERAPY, COGNITIVE-BEHAVIORAL (07/30/16) INDIVIDUAL PSYCHOTHERAPY, SUPPORTIVE (07/22/16) MEDICATION MANAGEMENT (07/22/16) OTHER GROUP THERAPY (11/05/13) PSYCHIA INTERV/EVAL NEC (06/28/14) Family History: States: Unknown Family Hx - Social History Hx Tobacco Use: Yes (heavy smoker) Hx Alcohol Use: No Hx Substance Use: No - Immunization History Hx Tetanus Toxoid Vaccination: No Hx Influenza Vaccination: Yes (2017) Hx Pneumococcal Vaccination: Yes Review Of Systems Constitutional: Negative for: Fever Cardiovascular: Negative for: Chest Pain Respiratory: Negative for: Shortness of Breath Gastrointestinal: Negative for: Vomiting Psych: Negative for: Suicidal ideation Physical Exam - Physical Exam Appears: Non-toxic, No Acute Distress, Unkempt (malodorous), Other ( Patient appears comfortable, eating a chocolate bar) Head: Atraumatic Eye(s): bilateral: Normal Inspection Neck: Normal ROM Extremity: Normal ROM Neurological/Psych: Oriented x3 Gait: Steady ED Course And Treatment O2 Sat by Pulse Oximetry: 99 (on RA) Pulse Ox Interpretation: Normal Disposition Counseled Patient/Family Regarding: Diagnosis, Need For Followup - Disposition Referrals: [facility] [Outside] Disposition: HOME/ ROUTINE Disposition Time: 12:30 Condition: STABLE Forms: [facility] (Kazakh), General Discharge Instructions Print Language: TUVALUAN - POA Present On Arrival: None - Clinical Impression Clinical Impression: Evaluation by medical service required, Hunger pain - Scribe Statement The provider has reviewed the documentation as recorded by the Scribe (Nicho Hemphill) All medical record entries made by the Scribe were at my direction and personally dictated by me. I have reviewed the chart and agree that the record accurately reflects my personal performance of the history, physical exam, medical decision making, and the department course for this patient. I have also personally directed, reviewed, and agree with the discharge instructions and disposition.
== END 2017-04-21 12:49 | disposition home or self-care (01) ==
LOC: C.ER 11:41
DX: T73.0XXA Starvation, initial encounter (principal); X58.XXXA Exposure to other specified factors, initial encounter; F20.9 Schizophrenia, unspecified; Z59.0 Homelessness; F17.210 Nicotine dependence, cigarettes, uncomplicated

== ENCOUNTER 2017-04-21 16:03 | Emergency (ER) | payer MEDICARE ==
[2017-04-21 16:03] VITALS: BMI 23.0
[2017-04-21 16:36] VITALS: BP 126/84; PULSE 89; RESP 20; TEMP 98.4; O2SAT 99
--- NOTE | 2017-04-21 18:20 | C.PDOC ---
History Of Present Illness 57-year-old homeless male, PMHx includes Schizophrenia, Bipolar Disorder and Gastritis, presents to the emergency department with complaints of auditory hallucinations. Patient has been seen in this ER and [place] ER for same complaint, several times in the past. He was in ED earlier today for same complaint. No SI/HI. No other complaints at this time. Time Seen by Provider: 04/21/17 18:18 Chief Complaint (Nursing): Abdominal Pain History Per: Patient Past Medical History Reviewed: Historical Data, Nursing Documentation, Vital Signs Vital Signs: Last Vital Signs Temp 98.4 F 04/21/17 16:34 Pulse 89 04/21/17 16:34 Resp 20 04/21/17 16:34 BP 126/84 04/21/17 16:34 Pulse Ox 99 04/21/17 18:19 - Medical History PMH: Anxiety, Asthma, Bipolar Disorder, Depression, Gastritis, Paranoia, Personality Disorder, Schizophrenia, Seizures, Chronic Pain (abd) Surgical History: - [facility] Procedures APPLICATION OF SPLINT (04/09/14) CL FX REDUC-TIBIA/FIBULA (02/26/13) GROUP PSYCHOTHERAPY (07/30/16) INDIVID PSYCHOTHERAP NEC (12/17/13) INDIVIDUAL PSYCHOTHERAPY, BEHAVIORAL (01/29/16) INDIVIDUAL PSYCHOTHERAPY, COGNITIVE-BEHAVIORAL (07/30/16) INDIVIDUAL PSYCHOTHERAPY, SUPPORTIVE (07/22/16) MEDICATION MANAGEMENT (07/22/16) OTHER GROUP THERAPY (11/05/13) PSYCHIA INTERV/EVAL NEC (06/28/14) Family History: States: No Known Family Hx - Social History Hx Tobacco Use: Yes (heavy smoker) Hx Alcohol Use: No Hx Substance Use: No - Immunization History Hx Tetanus Toxoid Vaccination: No Hx Influenza Vaccination: Yes (2017) Hx Pneumococcal Vaccination: Yes Review Of Systems Cardiovascular: Negative for: Chest Pain Respiratory: Negative for: Shortness of Breath Psych: Negative for: Suicidal ideation Physical Exam - Physical Exam Appears: Non-toxic, No Acute Distress, Unkempt (malodorous), Other (patient appears comfortable.) Head: Atraumatic, Normacephalic Eye(s): bilateral: Normal Inspection Extremity: Normal ROM Neurological/Psych: Oriented x3 Gait: Steady ED Course And Treatment O2 Sat by Pulse Oximetry: 99 Disposition Counseled Patient/Family Regarding: Diagnosis, Need For Followup - Disposition Referrals: [facility] [Outside] Disposition: HOME/ ROUTINE Disposition Time: 18:15 Condition: STABLE Forms: [facility] (South Korean), General Discharge Instructions Print Language: VIETNAMESE - POA Present On Arrival: None - Clinical Impression Clinical Impression: Hunger pain - Scribe Statement The provider has reviewed the documentation as recorded by the Scribe (Arabella Hemphill) Provider Attestation: All medical record entries made by the Scribe were at my direction and personally dictated by me. I have reviewed the chart and agree that the record accurately reflects my personal performance of the history, physical exam, medical decision making, and the department course for this patient. I have also personally directed, reviewed, and agree with the discharge instructions and disposition.
== END 2017-04-21 18:40 | disposition home or self-care (01) ==
LOC: C.ER 16:03
DX: T73.0XXA Starvation, initial encounter (principal); X58.XXXA Exposure to other specified factors, initial encounter; F20.9 Schizophrenia, unspecified; Z59.0 Homelessness; F17.210 Nicotine dependence, cigarettes, uncomplicated

== ENCOUNTER 2017-04-22 22:07 | Emergency (ER) | payer MEDICARE ==
[2017-04-22 22:08] VITALS: BMI 23.0
--- NOTE | 2017-04-22 23:34 | C.PDOC ---
History Of Present Illness 57 year old male well known to the ED presents today c/o hearing voices. Patient presents to the ED intoxicated. Patient denies SI/HI, physical complaints at this time. Chief Complaint (Nursing): Psychiatric Evaluation History Per: Patient History/Exam Limitations: no limitations Onset/Duration Of Symptoms: Hrs Current Symptoms Are (Timing): Still Present Modifying Factor(s): Alcohol Associated Symptoms: denies: Depression, Suicidal Thoughts, Suicidal Plan Recent travel outside of the [place]: No Additional History Per: Patient Past Medical History Reviewed: Historical Data, Nursing Documentation, Vital Signs Vital Signs: Last Vital Signs Temp 98.3 F 04/23/17 02:33 Pulse 88 04/23/17 05:00 Resp 16 04/23/17 05:00 BP 122/88 04/23/17 02:33 Pulse Ox 97 04/23/17 02:33 - Medical History PMH: Anxiety, Asthma, Bipolar Disorder, Depression, Gastritis, Paranoia, Personality Disorder, Schizophrenia, Seizures, Chronic Pain (abd) Denies: Diabetes, Hepatitis, HIV, HTN, Sexually Transmitted Disease Surgical History: No Surg Hx - [facility] Procedures APPLICATION OF SPLINT (04/09/14) CL FX REDUC-TIBIA/FIBULA (02/26/13) GROUP PSYCHOTHERAPY (07/30/16) INDIVID PSYCHOTHERAP NEC (12/17/13) INDIVIDUAL PSYCHOTHERAPY, BEHAVIORAL (01/29/16) INDIVIDUAL PSYCHOTHERAPY, COGNITIVE-BEHAVIORAL (07/30/16) INDIVIDUAL PSYCHOTHERAPY, SUPPORTIVE (07/22/16) MEDICATION MANAGEMENT (07/22/16) OTHER GROUP THERAPY (11/05/13) PSYCHIA INTERV/EVAL NEC (06/28/14) Family History: States: Unknown Family Hx - Social History Hx Tobacco Use: Yes (heavy smoker) Hx Alcohol Use: No Hx Substance Use: No - Immunization History Hx Tetanus Toxoid Vaccination: No Hx Influenza Vaccination: Yes (2017) Hx Pneumococcal Vaccination: Yes Review Of Systems Constitutional: Negative for: Fever, Chills Cardiovascular: Negative for: Chest Pain, Palpitations Respiratory: Negative for: Cough, Shortness of Breath Gastrointestinal: Negative for: Nausea, Vomiting, Abdominal Pain Skin: Negative for: Rash Neurological: Negative for: Weakness, Numbness Physical Exam - Physical Exam Appears: Non-toxic, No Acute Distress Skin: Normal Color, Warm, Dry Head: Atraumatic, Normacephalic Eye(s): bilateral: Normal Inspection Nose: No Discharge Oral Mucosa: Moist Neck: Normal ROM, Supple Chest: Symmetrical Cardiovascular: Rhythm Regular, No Murmur Respiratory: Normal Breath Sounds, No Rales, No Rhonchi, No Wheezing Gastrointestinal/Abdominal: Soft, No Tenderness, No Guarding, No Rebound Extremity: Normal ROM, No Pedal Edema, No Calf Tenderness, No Deformity, No Swelling Neurological/Psych: Oriented x3, Normal Speech, Normal Cognition ED Course And Treatment O2 Sat by Pulse Oximetry: 99 (On RA) Pulse Ox Interpretation: Normal Disposition Counseled Patient/Family Regarding: Diagnosis - Disposition Referrals: [facility] [Outside] Disposition: HOME/ ROUTINE Disposition Time: 06:04 Condition: STABLE Instructions: Psychiatric Hallucinations (ED) Forms: [facility] (Syrian) - POA Present On Arrival: None - Clinical Impression Clinical Impression: Auditory hallucination - Scribe Statement The provider has reviewed the documentation as recorded by the Scribe Jarod Jett All medical record entries made by the Scribe were at my direction and personally dictated by me. I have reviewed the chart and agree that the record accurately reflects my personal performance of the history, physical exam, medical decision making, and the department course for this patient. I have also personally directed, reviewed, and agree with the discharge instructions and disposition.
[2017-04-23 02:35] VITALS: BP 122/88; PULSE 88; TEMP 98.3
[2017-04-23 06:03] VITALS: RESP 16
[2017-04-23 06:05] VITALS: O2SAT 99
== END 2017-04-23 05:00 | disposition home or self-care (01) ==
LOC: C.ER 22:07
DX: R44.0 Auditory hallucinations (principal)

== ENCOUNTER 2017-04-23 12:37 | Emergency (ER) | payer MEDICARE ==
[2017-04-23 12:37] VITALS: BMI 23.0
--- NOTE | 2017-04-23 13:58 | C.PDOC ---
History Of Present Illness 5 Time Seen by Provider: 04/23/17 13:56 Chief Complaint (Nursing): Psychiatric Evaluation Past Medical History - Medical History PMH: Anxiety, Asthma, Bipolar Disorder, Depression, Gastritis, Paranoia, Personality Disorder, Schizophrenia, Seizures, Chronic Pain (abd) Denies: Diabetes, Hepatitis, HIV, HTN, Sexually Transmitted Disease Surgical History: - [facility] Procedures APPLICATION OF SPLINT (04/09/14) CL FX REDUC-TIBIA/FIBULA (02/26/13) GROUP PSYCHOTHERAPY (07/30/16) INDIVID PSYCHOTHERAP NEC (12/17/13) INDIVIDUAL PSYCHOTHERAPY, BEHAVIORAL (01/29/16) INDIVIDUAL PSYCHOTHERAPY, COGNITIVE-BEHAVIORAL (07/30/16) INDIVIDUAL PSYCHOTHERAPY, SUPPORTIVE (07/22/16) MEDICATION MANAGEMENT (07/22/16) OTHER GROUP THERAPY (11/05/13) PSYCHIA INTERV/EVAL NEC (06/28/14) Family History: States: Unknown Family Hx - Social History Hx Tobacco Use: Yes (heavy smoker) Hx Alcohol Use: No Hx Substance Use: No - Immunization History Hx Tetanus Toxoid Vaccination: No Hx Influenza Vaccination: Yes (2016) Hx Pneumococcal Vaccination: Yes Disposition - Disposition Disposition: LEFT W/O BEING SEEN - ER ONLY Forms: [employer] [facility] (Senegalese)
== END 2017-04-23 13:56 | disposition left against medical advice (07) ==
LOC: C.ER 12:37
DX: Z02.89 Encounter for other administrative examinations (principal)

== ENCOUNTER 2017-04-23 19:01 | Emergency (ER) | payer MEDICARE ==
[2017-04-23 19:02] VITALS: BMI 23.0
[2017-04-23 22:50] VITALS: BP 150/83; PULSE 99; RESP 20; TEMP 98.4; O2SAT 99
== END 2017-04-23 19:50 | disposition left against medical advice (07) ==
LOC: C.ER 19:01
DX: Z02.89 Encounter for other administrative examinations (principal)

== ENCOUNTER 2017-04-24 21:34 | Emergency (ER) | payer MEDICARE ==
[2017-04-24 21:34] VITALS: BMI 23.0
[2017-04-24 21:42] VITALS: BP 139/85; PULSE 83; TEMP 97.9; O2SAT 99
--- NOTE | 2017-04-24 22:16 | C.PDOC ---
History Of Present Illness 57 year old male presents to the ER looking for a place to spend the night. Patient is well known to the ER for malingering. Denies suicidal ideation, homicidal ideation, or any physical complaints. Time Seen by Provider: 04/24/17 22:04 Chief Complaint (Nursing): Medical Clearance History Per: Patient History/Exam Limitations: no limitations Onset/Duration Of Symptoms: Hrs Recent travel outside of the [place]: No Past Medical History Reviewed: Historical Data, Nursing Documentation, Vital Signs Vital Signs: Last Vital Signs Temp 97.9 F 04/24/17 21:40 Pulse 83 04/24/17 21:40 Resp 20 04/24/17 22:22 BP 139/85 04/24/17 21:40 Pulse Ox 99 04/25/17 00:22 - Medical History PMH: Anxiety, Asthma, Bipolar Disorder, Depression, Gastritis, Paranoia, Personality Disorder, Schizophrenia, Seizures, Chronic Pain (abd) Surgical History: - [facility] Procedures APPLICATION OF SPLINT (04/09/14) CL FX REDUC-TIBIA/FIBULA (02/26/13) GROUP PSYCHOTHERAPY (07/30/16) INDIVID PSYCHOTHERAP NEC (12/17/13) INDIVIDUAL PSYCHOTHERAPY, BEHAVIORAL (01/29/16) INDIVIDUAL PSYCHOTHERAPY, COGNITIVE-BEHAVIORAL (07/30/16) INDIVIDUAL PSYCHOTHERAPY, SUPPORTIVE (07/22/16) MEDICATION MANAGEMENT (07/22/16) OTHER GROUP THERAPY (11/05/13) PSYCHIA INTERV/EVAL NEC (06/28/14) Family History: States: Unknown Family Hx - Social History Hx Tobacco Use: Yes (heavy smoker) Hx Alcohol Use: No Hx Substance Use: No - Immunization History Hx Tetanus Toxoid Vaccination: No Hx Influenza Vaccination: Yes (2017) Hx Pneumococcal Vaccination: Yes Review Of Systems Constitutional: Negative for: Fever, Chills Gastrointestinal: Negative for: Nausea, Vomiting, Diarrhea Psych: Negative for: Suicidal ideation Physical Exam - Physical Exam Appears: Non-toxic, No Acute Distress Skin: Normal Color, Warm, Dry Head: Atraumatic, Normacephalic Eye(s): bilateral: Normal Inspection Oral Mucosa: Moist Chest: Symmetrical, No Tenderness Cardiovascular: Rhythm Regular Respiratory: Normal Breath Sounds, No Rales, No Rhonchi, No Wheezing Gastrointestinal/Abdominal: Soft, No Tenderness Neurological/Psych: Oriented x3, Normal Speech Gait: Steady ED Course And Treatment O2 Sat by Pulse Oximetry: 99 (Room air) Pulse Ox Interpretation: Normal Disposition - Disposition Referrals: [facility] at [facility] [Outside] Disposition: HOME/ ROUTINE Disposition Time: 22:15 Condition: GOOD Additional Instructions: Follow up with the medical doctor/clinic within 1-2 days without fail. Return if worsened. 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 - Scribe Statement The provider has reviewed the documentation as recorded by the Scribe Howard Gottlieb All medical record entries made by the Madhavibalexis were at my direction and personally dictated by me. I have reviewed the chart and agree that the record accurately reflects my personal performance of the history, physical exam, medical decision making, and the department course for this patient. I have also personally directed, reviewed, and agree with the discharge instructions and disposition.
[2017-04-24 22:25] VITALS: RESP 20
== END 2017-04-24 22:22 | disposition home or self-care (01) ==
LOC: SUPCPDRO 21:34 → C.ER 21:34
DX: R53.83 Other fatigue (principal)

== ENCOUNTER 2017-04-26 02:16 | Emergency (ER) | payer MEDICARE ==
[2017-04-26 02:16] VITALS: BMI 23.0
[2017-04-26 03:12] VITALS: PULSE 80; TEMP 98; O2SAT 98
--- NOTE | 2017-04-26 03:16 | C.PDOC ---
History Of Present Illness Patient presents to the ER requesting a place to spend the night. Denies physical complaints at this time. Time Seen by Provider: 04/26/17 03:14 Chief Complaint (Nursing): Medical Clearance History Per: Patient History/Exam Limitations: no limitations Onset/Duration Of Symptoms: Hrs Current Symptoms Are (Timing): Still Present Severity: None Pain Scale Rating Of: 0 Recent travel outside of the [place]: No Past Medical History Reviewed: Historical Data, Nursing Documentation, Vital Signs Vital Signs: Last Vital Signs Temp 98 F 04/26/17 05:16 Pulse 80 04/26/17 05:16 Resp 20 04/26/17 05:16 BP 120/70 04/26/17 05:16 Pulse Ox 98 04/26/17 05:16 - Medical History PMH: Anxiety, Asthma, Bipolar Disorder, Depression, Gastritis, Paranoia, Personality Disorder, Schizophrenia, Seizures, Chronic Pain (abd) Surgical History: - [facility] Procedures APPLICATION OF SPLINT (04/09/14) CL FX REDUC-TIBIA/FIBULA (02/26/13) GROUP PSYCHOTHERAPY (07/30/16) INDIVID PSYCHOTHERAP NEC (12/17/13) INDIVIDUAL PSYCHOTHERAPY, BEHAVIORAL (01/29/16) INDIVIDUAL PSYCHOTHERAPY, COGNITIVE-BEHAVIORAL (07/30/16) INDIVIDUAL PSYCHOTHERAPY, SUPPORTIVE (07/22/16) MEDICATION MANAGEMENT (07/22/16) OTHER GROUP THERAPY (11/05/13) PSYCHIA INTERV/EVAL NEC (06/28/14) Family History: States: No Known Family Hx - Social History Hx Tobacco Use: Yes (heavy smoker) Hx Alcohol Use: No Hx Substance Use: No - Immunization History Hx Tetanus Toxoid Vaccination: No Hx Influenza Vaccination: Yes (2016) Hx Pneumococcal Vaccination: Yes Review Of Systems Constitutional: Negative for: Fever, Chills Gastrointestinal: Negative for: Nausea, Vomiting, Diarrhea Physical Exam - Physical Exam Appears: Non-toxic Skin: Warm, Dry Head: Normacephalic Oral Mucosa: Moist Chest: Symmetrical, No Tenderness Cardiovascular: Rhythm Regular Respiratory: No Rales, No Rhonchi, No Wheezing Gastrointestinal/Abdominal: Soft, No Tenderness Neurological/Psych: Oriented x3 ED Course And Treatment O2 Sat by Pulse Oximetry: 98 (Room air) Pulse Ox Interpretation: Normal Disposition Counseled Patient/Family Regarding: Studies Performed, Diagnosis, Need For Followup - Disposition Referrals: [facility] at [facility] [Outside] Disposition: HOME/ ROUTINE Disposition Time: 03:15 Condition: FAIR Forms: [facility] (Peruvian), General Discharge Instructions - Clinical Impression Clinical Impression: Schizophrenia - Scribe Statement The provider has reviewed the documentation as recorded by the Scribe Howard Gottlieb All medical record entries made by the Scribe were at my direction and personally dictated by me. I have reviewed the chart and agree that the record accurately reflects my personal performance of the history, physical exam, medical decision making, and the department course for this patient. I have also personally directed, reviewed, and agree with the discharge instructions and disposition.
[2017-04-26 05:19] VITALS: BP 120/70; RESP 20
== END 2017-04-26 05:47 | disposition home or self-care (01) ==
LOC: C.ER 02:16
DX: F20.9 Schizophrenia, unspecified (principal)

== ENCOUNTER 2017-04-28 22:21 | Emergency (ER) | payer MEDICARE ==
[2017-04-28 22:21] VITALS: BMI 23.0
--- NOTE | 2017-04-29 01:20 | C.PDOC ---
History Of Present Illness 57 year old male presents to the ER requesting a place to spend the night. Denies suicidal ideation, homicidal ideation, or physical complaints at this time. Chief Complaint (Nursing): Psychiatric Evaluation History Per: Patient History/Exam Limitations: no limitations Current Symptoms Are (Timing): Still Present Suicide/Self Injury Attempted (Context): None Modifying Factor(s): None Associated Symptoms: denies: Depression, Suicidal Thoughts, Suicidal Plan Involuntary Hold By: None Recent travel outside of the [place]: No Past Medical History Reviewed: Historical Data, Nursing Documentation, Vital Signs Vital Signs: Last Vital Signs Temp 98.3 F 04/29/17 01:23 Pulse 99 H 04/29/17 01:23 Resp 18 04/29/17 01:23 BP 139/77 04/29/17 01:23 Pulse Ox 95 04/29/17 01:23 - Medical History PMH: Anxiety, Asthma, Bipolar Disorder, Depression, Gastritis, Paranoia, Personality Disorder, Schizophrenia, Seizures, Chronic Pain (abd) Surgical History: - [facility] Procedures APPLICATION OF SPLINT (04/09/14) CL FX REDUC-TIBIA/FIBULA (02/26/13) GROUP PSYCHOTHERAPY (07/30/16) INDIVID PSYCHOTHERAP NEC (12/17/13) INDIVIDUAL PSYCHOTHERAPY, BEHAVIORAL (01/29/16) INDIVIDUAL PSYCHOTHERAPY, COGNITIVE-BEHAVIORAL (07/30/16) INDIVIDUAL PSYCHOTHERAPY, SUPPORTIVE (07/22/16) MEDICATION MANAGEMENT (07/22/16) OTHER GROUP THERAPY (11/05/13) PSYCHIA INTERV/EVAL NEC (06/28/14) Family History: States: Unknown Family Hx - Social History Hx Tobacco Use: Yes (heavy smoker) Hx Alcohol Use: No Hx Substance Use: No - Immunization History Hx Tetanus Toxoid Vaccination: No Hx Influenza Vaccination: Yes (2016) Hx Pneumococcal Vaccination: Yes Review Of Systems Constitutional: Negative for: Fever, Chills Gastrointestinal: Negative for: Nausea, Vomiting, Diarrhea Psych: Negative for: Suicidal ideation, Other (Homicidal ideation) Physical Exam - Physical Exam Appears: Non-toxic Skin: Normal Color, Warm, Dry Head: Atraumatic, Normacephalic Eye(s): bilateral: Normal Inspection Oral Mucosa: Moist Chest: Symmetrical, No Tenderness Cardiovascular: Rhythm Regular Respiratory: Normal Breath Sounds, No Rales, No Rhonchi, No Wheezing Gastrointestinal/Abdominal: Soft, No Tenderness Neurological/Psych: Oriented x3, Normal Speech ED Course And Treatment O2 Sat by Pulse Oximetry: 99 Disposition Counseled Patient/Family Regarding: Diagnosis - Disposition Referrals: [facility] at [facility] [Outside] Disposition: HOME/ ROUTINE Disposition Time: 01:39 Condition: STABLE Instructions: Hallucinations (ED) Forms: [facility] [facility] (Bengali) - POA Present On Arrival: None - Clinical Impression Clinical Impression: Auditory hallucination, Psychiatric disorder, Homelessness - PA / 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 - Scribe Statement The provider has reviewed the documentation as recorded by the Scribe Howard Gottlieb All medical record entries made by the Leonard were at my direction and personally dictated by me. I have reviewed the chart and agree that the record accurately reflects my personal performance of the history, physical exam, medical decision making, and the department course for this patient. I have also personally directed, reviewed, and agree with the discharge instructions and disposition.
[2017-04-29 01:24] VITALS: BP 139/77; PULSE 99; RESP 18; TEMP 98.3
[2017-04-29 01:41] VITALS: O2SAT 99
== END 2017-04-29 01:30 | disposition home or self-care (01) ==
LOC: C.ER 22:21
DX: R44.0 Auditory hallucinations (principal); Z59.0 Homelessness

== ENCOUNTER 2017-04-29 23:22 | Emergency (ER) | payer MEDICARE ==
[2017-04-29 23:22] VITALS: BMI 23.0
[2017-04-30 00:03] VITALS: RESP 18
--- NOTE | 2017-04-30 00:50 | C.PDOC ---
History Of Present Illness 57 year old male with medical history of schizophrenia and bipolar disorder, who presents to the emergency department with bed-seeking behavior. Denied any physical complaints, suicidal or homicidal ideation. PMD: none provided Time Seen by Provider: 04/29/17 23:52 Chief Complaint (Nursing): Psychiatric Evaluation History Per: Patient History/Exam Limitations: no limitations Onset/Duration Of Symptoms: Mins (prior to arrival) Current Symptoms Are (Timing): Still Present Suicide/Self Injury Attempted (Context): None Modifying Factor(s): None Severity: None Involuntary Hold By: None Recent travel outside of the [place]: No Additional History Per: Patient Past Medical History Reviewed: Historical Data, Nursing Documentation, Vital Signs Vital Signs: Last Vital Signs Temp 97.6 F 04/29/17 23:47 Pulse 97 H 04/29/17 23:47 Resp 18 04/29/17 23:47 BP 131/87 04/29/17 23:47 Pulse Ox 100 04/30/17 00:56 - Medical History PMH: Anxiety, Asthma, Bipolar Disorder, Depression, Gastritis, Paranoia, Personality Disorder, Schizophrenia, Seizures, Chronic Pain (abd) Denies: HIV, Chronic Kidney Disease, Sexually Transmitted Disease Surgical History: - [facility] Procedures APPLICATION OF SPLINT (04/09/14) CL FX REDUC-TIBIA/FIBULA (02/26/13) GROUP PSYCHOTHERAPY (07/30/16) INDIVID PSYCHOTHERAP NEC (12/17/13) INDIVIDUAL PSYCHOTHERAPY, BEHAVIORAL (01/29/16) INDIVIDUAL PSYCHOTHERAPY, COGNITIVE-BEHAVIORAL (07/30/16) INDIVIDUAL PSYCHOTHERAPY, SUPPORTIVE (07/22/16) MEDICATION MANAGEMENT (07/22/16) OTHER GROUP THERAPY (11/05/13) PSYCHIA INTERV/EVAL NEC (06/28/14) Family History: States: No Known Family Hx - Social History Hx Tobacco Use: Yes (heavy smoker) Hx Alcohol Use: No Hx Substance Use: No - Immunization History Hx Tetanus Toxoid Vaccination: No Hx Influenza Vaccination: Yes (2017) Hx Pneumococcal Vaccination: Yes Review Of Systems Constitutional: Negative for: Fever Cardiovascular: Negative for: Chest Pain Respiratory: Negative for: Shortness of Breath Gastrointestinal: Negative for: Abdominal Pain Musculoskeletal: Negative for: Back Pain Skin: Negative for: Rash Neurological: Negative for: Weakness Psych: Negative for: Anxiety, Suicidal ideation (or homicidal ideation) Physical Exam - Physical Exam Appears: Non-toxic, No Acute Distress Skin: Warm, Dry Oral Mucosa: Moist Chest: Symmetrical Cardiovascular: Rhythm Regular Respiratory: No Wheezing Gastrointestinal/Abdominal: Soft, No Tenderness Extremity: Normal ROM Extremity: Bilateral: Normal ROM Neurological/Psych: Oriented x3 Gait: Steady ED Course And Treatment O2 Sat by Pulse Oximetry: 100 (RA) Pulse Ox Interpretation: Normal Reevaluation Time: 05:11 Reassessment Condition: Improved Medical Decision Making Medical Decision Making: Initial Impression: Bed-seeking behavior Initial Plan: * Psychiatric evaluation Scribe Attestation: Documented by Rosalinda Crenshaw, acting as a scribe for Suman Nunez MD. Provider Scribe Attestation: All medical record entries made by the Scribe were at my direction and personally dictated by me. I have reviewed the chart and agree that the record accurately reflects my personal performance of the history, physical exam, medical decision making, and the department course for this patient. I have also personally directed, reviewed, and agree with the discharge instructions and disposition. Disposition - Disposition Referrals: at [facility] [Outside] Disposition: HOME/ ROUTINE Disposition Time: 05:13 Condition: FAIR Forms: [facility] (Czech), General Discharge Instructions - Clinical Impression Clinical Impression: Schizophrenia
[2017-04-30 05:15] VITALS: BP 134/74; PULSE 74; TEMP 98.1; O2SAT 97
== END 2017-04-30 05:15 | disposition home or self-care (01) ==
LOC: C.ER 23:22
DX: F20.9 Schizophrenia, unspecified (principal)

== ENCOUNTER 2017-04-30 18:39 | Emergency (ER) | payer MEDICARE ==
[2017-04-30 18:39] VITALS: BMI 23.0
[2017-04-30 19:25] VITALS: BP 126/87; PULSE 96; RESP 18; TEMP 98.2; O2SAT 99
--- NOTE | 2017-05-01 02:39 | C.PDOC ---
History Of Present Illness 57 year old male well known to the ER for malingering presents stating "I just want to be checked out" as per triage. Patient was not in his chair when I went to do my evaluation. Multiple attempts were made to go evaluate the patient; however, he was unable to be found and is presumed to have LWBS. Time Seen by Provider: 04/30/17 23:32 Chief Complaint (Nursing): Medical Clearance Past Medical History Vital Signs: Last Vital Signs Temp 98.2 F 04/30/17 19:22 Pulse 96 H 04/30/17 19:22 Resp 18 04/30/17 19:22 BP 126/87 04/30/17 19:22 Pulse Ox 99 05/01/17 02:41 - Medical History PMH: Anxiety, Asthma, Bipolar Disorder, Depression, Gastritis, Paranoia, Personality Disorder, Schizophrenia, Seizures, Chronic Pain (abd) Denies: HIV, Chronic Kidney Disease, Sexually Transmitted Disease Surgical History: - [facility] Procedures APPLICATION OF SPLINT (04/09/14) CL FX REDUC-TIBIA/FIBULA (02/26/13) GROUP PSYCHOTHERAPY (07/30/16) INDIVID PSYCHOTHERAP NEC (12/17/13) INDIVIDUAL PSYCHOTHERAPY, BEHAVIORAL (01/29/16) INDIVIDUAL PSYCHOTHERAPY, COGNITIVE-BEHAVIORAL (07/30/16) INDIVIDUAL PSYCHOTHERAPY, SUPPORTIVE (07/22/16) MEDICATION MANAGEMENT (07/22/16) OTHER GROUP THERAPY (11/05/13) PSYCHIA INTERV/EVAL NEC (06/28/14) Family History: States: Unknown Family Hx - Social History Hx Tobacco Use: Yes (heavy smoker) Hx Alcohol Use: No Hx Substance Use: No - Immunization History Hx Tetanus Toxoid Vaccination: No Hx Influenza Vaccination: Yes (2016) Hx Pneumococcal Vaccination: Yes ED Course And Treatment O2 Sat by Pulse Oximetry: 99 Disposition - Disposition Disposition: LEFT W/O BEING SEEN - ER ONLY Disposition Time: 23:45 Condition: UNKNOWN - Clinical Impression Clinical Impression: Patient left without being seen - PA / PAINTER HELPER / Resident Statement MD/DO has reviewed & agrees with the documentation as recorded. - Scribe Statement The provider has reviewed the documentation as recorded by the Scribe Howard Gottlieb All medical record entries made by the Scribe were at my direction and personally dictated by me. I have reviewed the chart and agree that the record accurately reflects my personal performance of the history, physical exam, medical decision making, and the department course for this patient. I have also personally directed, reviewed, and agree with the discharge instructions and disposition.
== END 2017-04-30 23:32 | disposition left against medical advice (07) ==
LOC: SUPCPDRO 18:39 → C.ER 18:39
DX: Z02.89 Encounter for other administrative examinations (principal); Z00.8 Encounter for other general examination

== ENCOUNTER 2017-05-01 23:09 | Emergency (ER) | payer MEDICARE ==
[2017-05-01 23:10] VITALS: BMI 23.0
[2017-05-01 23:26] VITALS: BP 127/81; PULSE 100; RESP 20; TEMP 98; O2SAT 98
--- NOTE | 2017-05-02 00:27 | C.PDOC ---
History Of Present Illness Patient is a 57 y/o male who presents to the ED with complaints of auditory hallucinations and abdominal pain. Patient "wants to sit awhile" and is currently drinking a Coke can in the ED. Patient is well known in ED, having multiple similar presentations. Time Seen by Provider: 05/01/17 23:26 Chief Complaint (Nursing): Psychiatric Evaluation History Per: Patient History/Exam Limitations: no limitations Current Symptoms Are (Timing): Still Present Recent travel outside of the [place]: No Past Medical History Reviewed: Historical Data, Nursing Documentation, Vital Signs Vital Signs: Last Vital Signs Temp 98 F 05/01/17 23:21 Pulse 100 H 05/01/17 23:21 Resp 20 05/01/17 23:21 BP 127/81 05/01/17 23:21 Pulse Ox 98 05/02/17 00:44 - Medical History PMH: Anxiety, Asthma, Bipolar Disorder, Depression, Gastritis, Paranoia, Personality Disorder, Schizophrenia, Seizures, Chronic Pain (abd) Surgical History: Other Surgeries: CL FX REDUC-TIBIA/FIBULA (02/26/13) - [facility] Procedures APPLICATION OF SPLINT (04/09/14) CL FX REDUC-TIBIA/FIBULA (02/26/13) GROUP PSYCHOTHERAPY (07/30/16) INDIVID PSYCHOTHERAP NEC (12/17/13) INDIVIDUAL PSYCHOTHERAPY, BEHAVIORAL (01/29/16) INDIVIDUAL PSYCHOTHERAPY, COGNITIVE-BEHAVIORAL (07/30/16) INDIVIDUAL PSYCHOTHERAPY, SUPPORTIVE (07/22/16) MEDICATION MANAGEMENT (07/22/16) OTHER GROUP THERAPY (11/05/13) PSYCHIA INTERV/EVAL NEC (06/28/14) Family History: States: Unknown Family Hx - Social History Hx Tobacco Use: Yes (heavy smoker) Hx Alcohol Use: No Hx Substance Use: No - Immunization History Hx Tetanus Toxoid Vaccination: No Hx Influenza Vaccination: Yes (2017) Hx Pneumococcal Vaccination: Yes Review Of Systems Except As Marked, All Systems Reviewed And Found Negative. Gastrointestinal: Positive for: Abdominal Pain Psych: Positive for: Other (auditory hallucinations) Physical Exam - Physical Exam Appears: Well, Non-toxic Skin: Warm, Dry Head: Atraumatic, Normacephalic Eye(s): bilateral: Normal Inspection Oral Mucosa: Moist Neck: Normal ROM Chest: Symmetrical Cardiovascular: Rhythm Regular Respiratory: No Rales, No Rhonchi, No Wheezing Gastrointestinal/Abdominal: Soft, No Tenderness, No Guarding Extremity: Bilateral: Atraumatic, Normal Color And Temperature, Normal ROM Neurological/Psych: Oriented x3, Normal Speech ED Course And Treatment O2 Sat by Pulse Oximetry: 98 Medical Decision Making Medical Decision Making: Patient with auditory hallucinations and complains of pain. Patient has history of schizophrenia, noncompliant with meds. Patient has no suicidal or homicidal ideation. Patient observed in ED and given food and drink. Discussed case with family service worker, who is very familiar with patient and states he does not meet admission criteria. Patient remained well in no distress and stable for discharge Disposition - Disposition Disposition: HOME/ ROUTINE Disposition Time: 00:26 Condition: STABLE Forms: [employer] [facility] (Wolof) - POA Present On Arrival: None - Clinical Impression Clinical Impression: Schizophrenia - Scribe Statement The provider has reviewed the documentation as recorded by the Scribe Muna Winn All medical record entries made by the Scribe were at my direction and personally dictated by me. I have reviewed the chart and agree that the record accurately reflects my personal performance of the history, physical exam, medical decision making, and the department course for this patient. I have also personally directed, reviewed, and agree with the discharge instructions and disposition.
== END 2017-05-02 00:40 | disposition home or self-care (01) ==
LOC: C.ER 23:09
DX: F20.9 Schizophrenia, unspecified (principal)

== ENCOUNTER 2017-05-04 01:02 | Emergency (ER) | payer MEDICARE ==
[2017-05-04 01:03] VITALS: BMI 23.0
--- NOTE | 2017-05-04 04:58 | C.PDOC ---
Time Seen by Provider: 05/04/17 01:14 Chief Complaint (Nursing): Psychiatric Evaluation History Per: Patient Onset/Duration Of Symptoms: Days (chronic) Current Symptoms Are (Timing): Still Present Suicide/Self Injury Attempted (Context): None Modifying Factor(s): None Severity: Moderate Associated Symptoms: Other (Auditory hallucinations). denies: Suicidal Thoughts , Suicidal Plan Additional History Per: Prior Records Past Medical History Reviewed: Historical Data, Nursing Documentation, Vital Signs Vital Signs: Last Vital Signs Temp 98.6 F 05/04/17 05:48 Pulse 83 05/04/17 05:48 Resp 15 05/04/17 05:48 BP 115/76 05/04/17 05:48 Pulse Ox 96 05/04/17 05:48 - Medical History PMH: Anxiety, Asthma, Bipolar Disorder, Depression, Gastritis, Paranoia, Personality Disorder, Schizophrenia, Seizures, Chronic Pain (abd) Surgical History: - [facility] Procedures APPLICATION OF SPLINT (04/09/14) CL FX REDUC-TIBIA/FIBULA (02/26/13) GROUP PSYCHOTHERAPY (07/30/16) INDIVID PSYCHOTHERAP NEC (12/17/13) INDIVIDUAL PSYCHOTHERAPY, BEHAVIORAL (01/29/16) INDIVIDUAL PSYCHOTHERAPY, COGNITIVE-BEHAVIORAL (07/30/16) INDIVIDUAL PSYCHOTHERAPY, SUPPORTIVE (07/22/16) MEDICATION MANAGEMENT (07/22/16) OTHER GROUP THERAPY (11/05/13) PSYCHIA INTERV/EVAL NEC (06/28/14) Family History: States: Unknown Family Hx - Social History Hx Tobacco Use: Yes (heavy smoker) Hx Alcohol Use: No Hx Substance Use: No - Immunization History Hx Tetanus Toxoid Vaccination: No Hx Influenza Vaccination: Yes (2016) Hx Pneumococcal Vaccination: Yes Review Of Systems Constitutional: Negative for: Fever Cardiovascular: Negative for: Chest Pain Respiratory: Negative for: Shortness of Breath Gastrointestinal: Negative for: Vomiting Musculoskeletal: Negative for: Neck Pain Skin: Negative for: Rash Neurological: Negative for: Weakness, Seizures, Headache Physical Exam - Physical Exam Appears: Non-toxic, No Acute Distress Skin: Normal Color, Warm, Dry, No Rash Head: Atraumatic, Normacephalic Eye(s): bilateral: Normal Inspection, PERRL, EOMI Neck: Normal ROM, Supple Cardiovascular: Rhythm Regular Respiratory: Normal Breath Sounds, No Accessory Muscle Use Gastrointestinal/Abdominal: Soft, No Tenderness, No Distention Extremity: Normal ROM Neurological/Psych: Oriented x3, Normal Motor, Normal Sensation Gait: Steady ED Course And Treatment O2 Sat by Pulse Oximetry: 95 Pulse Ox Interpretation: Normal Reassessment Condition: Improved Disposition Counseled Patient/Family Regarding: Diagnosis, Need For Followup, Smoking Cessation - Disposition Referrals: [facility] at [facility] [Outside] Disposition: HOME/ ROUTINE Disposition Time: 05:51 Condition: STABLE Additional Instructions: Follow up in the clinic. Return to the ER if you develop suicidal or homicidal thoughts, worsening of symptoms or if you have any other concerns. Instructions: Schizophrenia (ED) - Clinical Impression Clinical Impression: Schizophrenia
[2017-05-04 05:50] VITALS: BP 115/76; PULSE 83; RESP 15; TEMP 98.6
[2017-05-04 05:53] VITALS: O2SAT 95
== END 2017-05-04 05:56 | disposition home or self-care (01) ==
LOC: C.ER 01:02
DX: F20.9 Schizophrenia, unspecified (principal); F17.210 Nicotine dependence, cigarettes, uncomplicated

== ENCOUNTER 2017-05-05 02:13 | Emergency (ER) | payer MEDICARE ==
[2017-05-05 02:13] VITALS: BMI 23.0
[2017-05-05 02:47] VITALS: RESP 20
--- NOTE | 2017-05-05 03:07 | C.PDOC ---
History Of Present Illness 57 year old male presents to the ER requesting a place to spend the night. Denies any complaints at this time. Time Seen by Provider: 05/05/17 02:48 Chief Complaint (Nursing): Medical Clearance History Per: Patient History/Exam Limitations: no limitations Past Medical History Reviewed: Historical Data, Nursing Documentation, Vital Signs Vital Signs: Last Vital Signs Temp 97.8 F 05/05/17 03:23 Pulse 88 05/05/17 03:23 Resp 20 05/05/17 03:23 BP 130/70 05/05/17 03:23 Pulse Ox 97 05/05/17 06:00 - Medical History PMH: Anxiety, Asthma, Bipolar Disorder, Depression, Gastritis, Paranoia, Personality Disorder, Schizophrenia, Seizures, Chronic Pain (abd) Surgical History: - [facility] Procedures APPLICATION OF SPLINT (04/09/14) CL FX REDUC-TIBIA/FIBULA (02/26/13) GROUP PSYCHOTHERAPY (07/30/16) INDIVID PSYCHOTHERAP NEC (12/17/13) INDIVIDUAL PSYCHOTHERAPY, BEHAVIORAL (01/29/16) INDIVIDUAL PSYCHOTHERAPY, COGNITIVE-BEHAVIORAL (07/30/16) INDIVIDUAL PSYCHOTHERAPY, SUPPORTIVE (07/22/16) MEDICATION MANAGEMENT (07/22/16) OTHER GROUP THERAPY (11/05/13) PSYCHIA INTERV/EVAL NEC (06/28/14) Family History: States: Unknown Family Hx - Social History Hx Tobacco Use: Yes (heavy smoker) Hx Alcohol Use: No Hx Substance Use: No - Immunization History Hx Tetanus Toxoid Vaccination: No Hx Influenza Vaccination: Yes (2017) Hx Pneumococcal Vaccination: Yes Review Of Systems Constitutional: Negative for: Fever, Chills Gastrointestinal: Negative for: Nausea, Vomiting, Diarrhea Physical Exam - Physical Exam Appears: Well, Non-toxic, No Acute Distress Skin: Normal Color, Warm, Dry Head: Atraumatic, Normacephalic Eye(s): bilateral: Normal Inspection Chest: Symmetrical, No Tenderness Cardiovascular: Rhythm Regular Respiratory: Normal Breath Sounds, No Rales, No Rhonchi, No Wheezing Extremity: Normal ROM (x4) Neurological/Psych: Oriented x3, Normal Speech Gait: Steady ED Course And Treatment O2 Sat by Pulse Oximetry: 97 (Room air) Pulse Ox Interpretation: Normal Progress Note: Patient appears well, is ambulatory in the ER without any difficulty, and offers no acute complaints; will discharge home. Disposition Counseled Patient/Family Regarding: Diagnosis, Need For Followup - Disposition Disposition: HOME/ ROUTINE Disposition Time: 03:05 Condition: STABLE Additional Instructions: please follow up with Psychiatrist Return if worse Forms: General Discharge Instructions, [facility] (Jordanian) - Clinical Impression Clinical Impression: Tired - PA / ESCROW ASSISTANT / Resident Statement MD/DO has reviewed & agrees with the documentation as recorded. - Scribe Statement The provider has reviewed the documentation as recorded by the Scribalexis Gottlieb All medical record entries made by the Madhavibalexis were at my direction and personally dictated by me. I have reviewed the chart and agree that the record accurately reflects my personal performance of the history, physical exam, medical decision making, and the department course for this patient. I have also personally directed, reviewed, and agree with the discharge instructions and disposition.
[2017-05-05 03:23] VITALS: BP 130/70; PULSE 88; TEMP 97.8
[2017-05-05 06:00] VITALS: O2SAT 97
== END 2017-05-05 03:51 | disposition home or self-care (01) ==
LOC: C.ER 02:13
DX: R53.83 Other fatigue (principal)

== ENCOUNTER 2017-05-05 08:52 | Emergency (ER) | payer MEDICARE ==
[2017-05-05 08:53] VITALS: BMI 23.0
[2017-05-05 09:01] VITALS: BP 133/91; PULSE 84; RESP 18; TEMP 98.5; O2SAT 99
--- NOTE | 2017-05-05 10:51 | C.PDOC ---
History Of Present Illness 57 y/o male with pmh schizophrenia presents to ED for evaluation of hearing voices. They are not telling him to do anything. Patient states he is compliant with medication and denies si/hi or any physical complaints at this time. Contrary to triage note, pt has no abdominal pain, n/v, fever. Time Seen by Provider: 05/05/17 09:04 Chief Complaint (Nursing): Abdominal Pain History Per: Patient History/Exam Limitations: no limitations Onset/Duration Of Symptoms: Days Current Symptoms Are (Timing): Still Present Past Medical History Reviewed: Historical Data, Nursing Documentation, Vital Signs Vital Signs: Last Vital Signs Temp 98.5 F 05/05/17 08:59 Pulse 84 05/05/17 08:59 Resp 18 05/05/17 08:59 BP 133/91 H 05/05/17 08:59 Pulse Ox 99 05/05/17 11:11 - Medical History PMH: Anxiety, Asthma, Bipolar Disorder, Depression, Gastritis, Paranoia, Personality Disorder, Schizophrenia, Seizures, Chronic Pain (abd) Surgical History: No Surg Hx - [facility] Procedures APPLICATION OF SPLINT (04/09/14) CL FX REDUC-TIBIA/FIBULA (02/26/13) GROUP PSYCHOTHERAPY (07/30/16) INDIVID PSYCHOTHERAP NEC (12/17/13) INDIVIDUAL PSYCHOTHERAPY, BEHAVIORAL (01/29/16) INDIVIDUAL PSYCHOTHERAPY, COGNITIVE-BEHAVIORAL (07/30/16) INDIVIDUAL PSYCHOTHERAPY, SUPPORTIVE (07/22/16) MEDICATION MANAGEMENT (07/22/16) OTHER GROUP THERAPY (11/05/13) PSYCHIA INTERV/EVAL NEC (06/28/14) Family History: States: No Known Family Hx - Social History Hx Tobacco Use: Yes (heavy smoker) Hx Alcohol Use: No Hx Substance Use: No - Immunization History Hx Tetanus Toxoid Vaccination: No Hx Influenza Vaccination: Yes (2017) Hx Pneumococcal Vaccination: Yes Review Of Systems Constitutional: Negative for: Fever, Chills Cardiovascular: Negative for: Chest Pain Respiratory: Negative for: Shortness of Breath Skin: Negative for: Rash Psych: Negative for: Suicidal ideation Physical Exam - Physical Exam Appears: Non-toxic, No Acute Distress, Unkempt Skin: Warm, Dry, No Rash Head: Atraumatic, Normacephalic Eye(s): bilateral: Normal Inspection, EOMI Nose: Normal Oral Mucosa: Moist Neck: Normal ROM, Supple Chest: Symmetrical Cardiovascular: Rhythm Regular Respiratory: Normal Breath Sounds, No Accessory Muscle Use, No Rales, No Rhonchi , No Wheezing Gastrointestinal/Abdominal: Soft, No Tenderness, No Guarding, No Rebound Neurological/Psych: Oriented x3 ED Course And Treatment O2 Sat by Pulse Oximetry: 99 (RA) Pulse Ox Interpretation: Normal Progress Note: PT was seen and evaluated by field crop farm worker, requests labs. Labs ordered, pt left without labs or re-evaluation. Disposition - Disposition Disposition: ELOPEMENT - ER ONLY Disposition Time: 10:00 Condition: STABLE Forms: [facility] (Vietnamese) - Clinical Impression Clinical Impression: Schizophrenia - PA / [employer] YOU[employer] SUPERVISOR / Resident Statement MD/DO has reviewed & agrees with the documentation as recorded. - Scribe Statement The provider has reviewed the documentation as recorded by the Madhavibalexis Puente All medical record entries made by the Scribalexis were at my direction and personally dictated by me. I have reviewed the chart and agree that the record accurately reflects my personal performance of the history, physical exam, medical decision making, and the department course for this patient. I have also personally directed, reviewed, and agree with the discharge instructions and disposition.
== END 2017-05-05 12:03 | disposition left against medical advice (07) ==
LOC: C.ER 08:52
DX: F20.9 Schizophrenia, unspecified (principal)

== ENCOUNTER 2017-05-05 21:25 | Emergency (ER) | payer MEDICARE ==
[2017-05-05 21:25] VITALS: BMI 23.0
[2017-05-05 22:16] VITALS: RESP 20; O2SAT 98
--- NOTE | 2017-05-05 22:31 | C.PDOC ---
History Of Present Illness The patient presents to the ED requesting a place to stay for the night. Patient is familiar to the ED and has had multiple visits for the same request. He denies fever, chills, abdominal pain and has no other complaints at this time. Time Seen by Provider: 05/05/17 22:30 Chief Complaint (Nursing): Psychiatric Evaluation History Per: Patient History/Exam Limitations: no limitations Onset/Duration Of Symptoms: Hrs Current Symptoms Are (Timing): Gone Suicide/Self Injury Attempted (Context): None, Cut Wrists Modifying Factor(s): None Severity: None Pain Scale Rating Of: 0 Associated Symptoms: denies: Suicidal Thoughts, Suicidal Plan Involuntary Hold By: None Recent travel outside of the [place]: No Additional History Per: Patient Past Medical History Reviewed: Historical Data, Nursing Documentation, Vital Signs Vital Signs: Last Vital Signs Temp 98.4 F 05/05/17 22:14 Pulse 86 05/05/17 22:14 Resp 20 05/05/17 22:14 BP 134/83 05/05/17 22:14 Pulse Ox 98 05/06/17 00:57 - Medical History PMH: Anxiety, Asthma, Bipolar Disorder, Depression, Gastritis, Paranoia, Personality Disorder, Schizophrenia, Seizures, Chronic Pain (abd) Denies: Diabetes, Hepatitis, HIV, HTN, Sexually Transmitted Disease Surgical History: No Surg Hx - [facility] Procedures APPLICATION OF SPLINT (04/09/14) CL FX REDUC-TIBIA/FIBULA (02/26/13) GROUP PSYCHOTHERAPY (07/30/16) INDIVID PSYCHOTHERAP NEC (12/17/13) INDIVIDUAL PSYCHOTHERAPY, BEHAVIORAL (01/29/16) INDIVIDUAL PSYCHOTHERAPY, COGNITIVE-BEHAVIORAL (07/30/16) INDIVIDUAL PSYCHOTHERAPY, SUPPORTIVE (07/22/16) MEDICATION MANAGEMENT (07/22/16) OTHER GROUP THERAPY (11/05/13) PSYCHIA INTERV/EVAL NEC (06/28/14) Family History: States: Unknown Family Hx - Social History Hx Tobacco Use: Yes (heavy smoker) Hx Alcohol Use: No Hx Substance Use: No - Immunization History Hx Tetanus Toxoid Vaccination: No Hx Influenza Vaccination: Yes (2016) Hx Pneumococcal Vaccination: No Review Of Systems Constitutional: Negative for: Fever, Chills Cardiovascular: Negative for: Chest Pain, Palpitations Respiratory: Negative for: Cough, Shortness of Breath Gastrointestinal: Negative for: Nausea, Vomiting, Abdominal Pain Skin: Negative for: Rash, Lesions, Jaundice, Bruising Neurological: Negative for: Weakness, Numbness Psych: Negative for: Suicidal ideation Physical Exam - Physical Exam Appears: Non-toxic, No Acute Distress Skin: Warm, Dry Head: Normacephalic Eye(s): bilateral: Normal Inspection Oral Mucosa: Moist Neck: Supple Chest: Symmetrical, No Deformity, No Tenderness Cardiovascular: Rhythm Regular, No Murmur Respiratory: No Rales, No Rhonchi, No Wheezing Gastrointestinal/Abdominal: Soft, No Tenderness Extremity: Normal ROM, Capillary Refill (less than 2 seconds ) Neurological/Psych: Oriented x3 Gait: Steady ED Course And Treatment O2 Sat by Pulse Oximetry: 98 (on RA) Pulse Ox Interpretation: Normal Disposition Counseled Patient/Family Regarding: Studies Performed, Diagnosis, Need For Followup - Disposition Referrals: [facility] at [facility] [Outside] Disposition: HOME/ ROUTINE Disposition Time: 22:30 Condition: FAIR Instructions: Schizophrenia (ED) Forms: [facility] (Croatian) - Clinical Impression Clinical Impression: Schizophrenia - Scribe Statement The provider has reviewed the documentation as recorded by the Scribe (Rosi Chow) Provider Attestation: All medical record entries made by the Scribe were at my direction and personally dictated by me. I have reviewed the chart and agree that the record accurately reflects my personal performance of the history, physical exam, medical decision making, and the department course for this patient. I have also personally directed, reviewed, and agree with the discharge instructions and disposition.
[2017-05-06 03:43] VITALS: BP 130/80; PULSE 70; TEMP 98.5
== END 2017-05-06 03:35 | disposition home or self-care (01) ==
LOC: C.ER 21:25
DX: F20.9 Schizophrenia, unspecified (principal)

== ENCOUNTER 2017-05-06 19:10 | Emergency (ER) | payer MEDICARE ==
[2017-05-06 19:10] VITALS: BMI 23.0
[2017-05-06 19:29] VITALS: RESP 20; TEMP 98
--- NOTE | 2017-05-06 20:00 | C.PDOC ---
History Of Present Illness Patient is a 57 y/o male, with a Hx of schizophrenia, who presents to the ED feeling hungry and requesting a sandwich. Patient admits to feeling tired. No other physical complaints at this time. Time Seen by Provider: 05/06/17 19:45 Chief Complaint (Nursing): Medical Clearance History Per: Patient History/Exam Limitations: no limitations Onset/Duration Of Symptoms: Hrs Current Symptoms Are (Timing): Still Present Recent travel outside of the [place]: No Past Medical History Reviewed: Historical Data, Nursing Documentation, Vital Signs Vital Signs: Last Vital Signs Temp 98 F 05/06/17 20:43 Pulse 80 05/06/17 20:43 Resp 20 05/06/17 20:43 BP 130/78 05/06/17 20:43 Pulse Ox 99 05/07/17 01:21 - Medical History PMH: Anxiety, Asthma, Bipolar Disorder, Depression, Gastritis, Paranoia, Personality Disorder, Schizophrenia, Seizures, Chronic Pain (abd) Denies: Diabetes, Hepatitis, HIV, HTN, Sexually Transmitted Disease Surgical History: Other Surgeries: tibia/fibula fracture reduction 02/26/13 - [facility] Procedures APPLICATION OF SPLINT (04/09/14) CL FX REDUC-TIBIA/FIBULA (02/26/13) GROUP PSYCHOTHERAPY (07/30/16) INDIVID PSYCHOTHERAP NEC (12/17/13) INDIVIDUAL PSYCHOTHERAPY, BEHAVIORAL (01/29/16) INDIVIDUAL PSYCHOTHERAPY, COGNITIVE-BEHAVIORAL (07/30/16) INDIVIDUAL PSYCHOTHERAPY, SUPPORTIVE (07/22/16) MEDICATION MANAGEMENT (07/22/16) OTHER GROUP THERAPY (11/05/13) PSYCHIA INTERV/EVAL NEC (06/28/14) Family History: States: Unknown Family Hx - Social History Hx Tobacco Use: Yes (heavy smoker) Hx Alcohol Use: No Hx Substance Use: No - Immunization History Hx Tetanus Toxoid Vaccination: No Hx Influenza Vaccination: Yes (2017) Hx Pneumococcal Vaccination: No Review Of Systems Constitutional: Positive for: Other ("tired", hungry ) Psych: Positive for: Other (schizophrenia) Physical Exam - Physical Exam Appears: Well, Non-toxic, No Acute Distress Skin: Normal Color, Warm, Dry Oral Mucosa: Moist Chest: Symmetrical Cardiovascular: Rhythm Regular, No Murmur Respiratory: Normal Breath Sounds, No Rales, No Rhonchi, No Wheezing Neurological/Psych: Oriented x3, Normal Speech, Normal Cognition ED Course And Treatment O2 Sat by Pulse Oximetry: 99 (room air) Pulse Ox Interpretation: Normal Progress Note: On re-eval, patient is resting comfortably and stable for discharge. Disposition - Disposition Referrals: [facility] at [facility] [Outside] Disposition: HOME/ ROUTINE Disposition Time: 19:54 Condition: GOOD Additional Instructions: Follow up with the medical doctor within 1-2 days without fail. return if worsened. Instructions: Fatigue (ED) Forms: [employer] [facility] (Setswana) - Clinical Impression Clinical Impression: Tired, Normal exam, Excessive hunger - Scribe Statement The provider has reviewed the documentation as recorded by the Scribe Muna Winn All medical record entries made by the Scribe were at my direction and personally dictated by me. I have reviewed the chart and agree that the record accurately reflects my personal performance of the history, physical exam, medical decision making, and the department course for this patient. I have also personally directed, reviewed, and agree with the discharge instructions and disposition.
[2017-05-06 20:44] VITALS: BP 130/78; PULSE 80
[2017-05-06 20:52] VITALS: O2SAT 99
== END 2017-05-06 20:43 | disposition home or self-care (01) ==
LOC: C.ER 19:10
DX: Z00.00 Encounter for general adult medical examination without abnormal findings (principal); T73.0XXA Starvation, initial encounter; R53.83 Other fatigue; F20.9 Schizophrenia, unspecified; F17.210 Nicotine dependence, cigarettes, uncomplicated

== ENCOUNTER 2017-05-07 23:48 | Emergency (ER) | payer MEDICARE ==
[2017-05-07 23:48] VITALS: BMI 23.0
[2017-05-07 23:55] VITALS: RESP 18; TEMP 98.4
--- NOTE | 2017-05-08 02:49 | C.PDOC ---
History Of Present Illness 57 year old male presents to the ER stating he is tired, doesn't want to go home because it's cold outside and just wants to sleep. Denies physical complaints at this time. Time Seen by Provider: 05/07/17 23:59 Chief Complaint (Nursing): Medical Clearance History Per: Patient History/Exam Limitations: no limitations Onset/Duration Of Symptoms: Hrs Current Symptoms Are (Timing): Still Present Recent travel outside of the [place]: No Past Medical History Reviewed: Historical Data, Nursing Documentation, Vital Signs Vital Signs: Last Vital Signs Temp 98.4 F 05/07/17 23:52 Pulse 86 05/07/17 23:52 Resp 18 05/07/17 23:52 BP 129/84 05/07/17 23:52 Pulse Ox 98 05/08/17 02:51 - Medical History PMH: Anxiety, Asthma, Bipolar Disorder, Depression, Gastritis, Paranoia, Personality Disorder, Schizophrenia, Seizures, Chronic Pain (abd) Surgical History: - [facility] Procedures APPLICATION OF SPLINT (04/09/14) CL FX REDUC-TIBIA/FIBULA (02/26/13) GROUP PSYCHOTHERAPY (07/30/16) INDIVID PSYCHOTHERAP NEC (12/17/13) INDIVIDUAL PSYCHOTHERAPY, BEHAVIORAL (01/29/16) INDIVIDUAL PSYCHOTHERAPY, COGNITIVE-BEHAVIORAL (07/30/16) INDIVIDUAL PSYCHOTHERAPY, SUPPORTIVE (07/22/16) MEDICATION MANAGEMENT (07/22/16) OTHER GROUP THERAPY (11/05/13) PSYCHIA INTERV/EVAL NEC (06/28/14) Family History: States: Unknown Family Hx - Social History Hx Tobacco Use: Yes (heavy smoker) Hx Alcohol Use: No Hx Substance Use: No - Immunization History Hx Tetanus Toxoid Vaccination: No Hx Influenza Vaccination: Yes (2017) Hx Pneumococcal Vaccination: No Review Of Systems Except As Marked, All Systems Reviewed And Found Negative. Physical Exam - Physical Exam Appears: Non-toxic, No Acute Distress Skin: Normal Color, Warm, Dry Head: Atraumatic, Normacephalic Eye(s): bilateral: Normal Inspection Oral Mucosa: Moist Chest: Symmetrical, No Tenderness Cardiovascular: Rhythm Regular Respiratory: Normal Breath Sounds, No Rales, No Rhonchi, No Wheezing Gastrointestinal/Abdominal: Soft, No Tenderness Neurological/Psych: Oriented x3, Normal Speech ED Course And Treatment O2 Sat by Pulse Oximetry: 98 (room air) Pulse Ox Interpretation: Normal Disposition Counseled Patient/Family Regarding: Diagnosis, Need For Followup - Disposition Referrals: Non [facility] Provider, [Primary Care Provider] - Disposition: HOME/ ROUTINE Disposition Time: 05:05 Condition: STABLE Forms: [facility] (Irish), General Discharge Instructions Print Language: URDU - Clinical Impression Clinical Impression: Malingering - Scribe Statement The provider has reviewed the documentation as recorded by the Scribe Howard Gottlieb All medical record entries made by the Scribe were at my direction and personally dictated by me. I have reviewed the chart and agree that the record accurately reflects my personal performance of the history, physical exam, medical decision making, and the department course for this patient. I have also personally directed, reviewed, and agree with the discharge instructions and disposition.
[2017-05-08 05:36] VITALS: BP 131/82; PULSE 80; O2SAT 100
== END 2017-05-08 05:20 | disposition home or self-care (01) ==
LOC: SUPCPDRO 23:48 → C.ER 23:48
DX: Z76.5 Malingerer [conscious simulation] (principal)

== ENCOUNTER 2017-05-08 18:23 | Emergency (ER) | payer MEDICARE ==
[2017-05-08 18:23] VITALS: BMI 23.0
--- NOTE | 2017-05-09 00:16 | C.PDOC ---
History Of Present Illness Patient presents to ED with complaints of auditory hallucinations and also reports feeling decreased appetite, and asking for food. Patient is well known to ED with multiple visits, usually bed seeking. Denies any SI/HI, drug use or injury. Time Seen by Provider: 05/08/17 22:49 Chief Complaint (Nursing): Medical Clearance History Per: Patient History/Exam Limitations: no limitations Current Symptoms Are (Timing): Still Present Reports Recently: Seen In ED Past Medical History Reviewed: Historical Data, Nursing Documentation, Vital Signs Vital Signs: Last Vital Signs Temp 98.4 F 05/09/17 02:51 Pulse 90 05/09/17 02:51 Resp 16 05/09/17 02:51 BP 114/72 05/09/17 02:51 Pulse Ox 100 05/09/17 05:23 - Medical History PMH: Anxiety, Asthma, Bipolar Disorder, Depression, Gastritis, Paranoia, Personality Disorder, Schizophrenia, Seizures, Chronic Pain (abd) Surgical History: - [facility] Procedures APPLICATION OF SPLINT (04/09/14) CL FX REDUC-TIBIA/FIBULA (02/26/13) GROUP PSYCHOTHERAPY (07/30/16) INDIVID PSYCHOTHERAP NEC (12/17/13) INDIVIDUAL PSYCHOTHERAPY, BEHAVIORAL (01/29/16) INDIVIDUAL PSYCHOTHERAPY, COGNITIVE-BEHAVIORAL (07/30/16) INDIVIDUAL PSYCHOTHERAPY, SUPPORTIVE (07/22/16) MEDICATION MANAGEMENT (07/22/16) OTHER GROUP THERAPY (11/05/13) PSYCHIA INTERV/EVAL NEC (06/28/14) Family History: States: Unknown Family Hx - Social History Hx Tobacco Use: Yes (heavy smoker) Hx Alcohol Use: No Hx Substance Use: No - Immunization History Hx Tetanus Toxoid Vaccination: No Hx Influenza Vaccination: Yes (2016) Hx Pneumococcal Vaccination: No Review Of Systems Except As Marked, All Systems Reviewed And Found Negative. Psych: Positive for: Other (schizophrenia) Physical Exam - Physical Exam Appears: Non-toxic, No Acute Distress Skin: Warm, Dry, No Rash Head: Atraumatic, Normacephalic Eye(s): bilateral: Normal Inspection, EOMI Nose: Normal, No Flaring Oral Mucosa: Moist Neck: Normal ROM Chest: Symmetrical Cardiovascular: Rhythm Regular, No Murmur Respiratory: Normal Breath Sounds, No Wheezing Extremity: Bilateral: Atraumatic, Normal ROM Neurological/Psych: Oriented x3, Normal Speech ED Course And Treatment O2 Sat by Pulse Oximetry: 100 Medical Decision Making Medical Decision Making: Patient with h.o schizophrenia, well known to ED, looking for long-term for the night. He appears nontoxic and in no distress. He has no apparent signs of injury. Will allow patient to rest in safe environment and observe. Disposition Counseled Patient/Family Regarding: Need For Followup - Disposition [facility] [[facility]] Disposition: HOME/ ROUTINE Disposition Time: 05:45 Condition: STABLE Instructions: Schizophrenia (ED) - POA Present On Arrival: None - Clinical Impression Clinical Impression: Schizophrenia, Homeless single person
[2017-05-09 02:52] VITALS: BP 114/72; PULSE 90; RESP 16; TEMP 98.4
[2017-05-09 05:24] VITALS: O2SAT 100
== END 2017-05-09 05:48 | disposition home or self-care (01) ==
LOC: C.ER 18:23
DX: F20.9 Schizophrenia, unspecified (principal); Z59.0 Homelessness

== ENCOUNTER 2017-05-10 15:48 | Emergency (ER) | payer MEDICARE ==
[2017-05-10 15:48] VITALS: BMI 23.0
[2017-05-10 15:59] VITALS: RESP 18; O2SAT 100
--- NOTE | 2017-05-10 16:27 | C.PDOC ---
History Of Present Illness 57-YEAR-OLD MALE, PRESENTS TO THE EMERGENCY DEPARTMENT REQUESTING JUICE. PATIENT HAS A HISTORY OF SEVERAL VISITS TO THE ED FOR SIMILAR COMPLAINT. NO HI/ SI. Time Seen by Provider: 05/10/17 16:21 Chief Complaint (Nursing): Psychiatric Evaluation History Per: Patient History/Exam Limitations: no limitations Onset/Duration Of Symptoms: Days Current Symptoms Are (Timing): Still Present Past Medical History Reviewed: Historical Data, Nursing Documentation, Vital Signs Vital Signs: Last Vital Signs Temp 98 F 05/10/17 17:23 Pulse 100 H 05/10/17 17:23 Resp 18 05/10/17 17:23 BP 144/82 05/10/17 17:23 Pulse Ox 100 05/10/17 17:56 - Medical History PMH: Anxiety, Asthma, Bipolar Disorder, Depression, Gastritis, Paranoia, Personality Disorder, Schizophrenia, Seizures, Chronic Pain (abd) Surgical History: - [facility] Procedures APPLICATION OF SPLINT (04/09/14) CL FX REDUC-TIBIA/FIBULA (02/26/13) GROUP PSYCHOTHERAPY (07/30/16) INDIVID PSYCHOTHERAP NEC (12/17/13) INDIVIDUAL PSYCHOTHERAPY, BEHAVIORAL (01/29/16) INDIVIDUAL PSYCHOTHERAPY, COGNITIVE-BEHAVIORAL (07/30/16) INDIVIDUAL PSYCHOTHERAPY, SUPPORTIVE (07/22/16) MEDICATION MANAGEMENT (07/22/16) OTHER GROUP THERAPY (11/05/13) PSYCHIA INTERV/EVAL NEC (06/28/14) Family History: States: No Known Family Hx - Social History Hx Tobacco Use: Yes (heavy smoker) Hx Alcohol Use: No Hx Substance Use: No - Immunization History Hx Tetanus Toxoid Vaccination: No Hx Influenza Vaccination: No Hx Pneumococcal Vaccination: No Review Of Systems Constitutional: Negative for: Fever Cardiovascular: Negative for: Chest Pain Respiratory: Negative for: Shortness of Breath Gastrointestinal: Negative for: Vomiting Musculoskeletal: Negative for: Back Pain Neurological: Negative for: Weakness, Numbness, Headache, Dizziness Physical Exam - Physical Exam Appears: Non-toxic, No Acute Distress Skin: Warm, Dry, No Rash Head: Atraumatic, Normacephalic Eye(s): bilateral: Normal Inspection, PERRL Nose: Normal Oral Mucosa: Moist Lips: Normal Appearing Neck: Normal ROM Chest: Symmetrical Cardiovascular: Rhythm Regular, No Murmur Respiratory: Normal Breath Sounds, No Accessory Muscle Use Extremity: Normal ROM Neurological/Psych: Oriented x3, Normal Speech ED Course And Treatment O2 Sat by Pulse Oximetry: 100 (RA) Disposition - Disposition Referrals: [facility] [Outside] [facility] [Outside] Disposition: HOME/ ROUTINE Disposition Time: 17:15 Condition: GOOD Forms: General Discharge Instructions, [facility] (Vietnamese) - Clinical Impression Clinical Impression: Malingering - Scribe Statement The provider has reviewed the documentation as recorded by the Scribe (Arabella Hemphill) All medical record entries made by the Scribe were at my direction and personally dictated by me. I have reviewed the chart and agree that the record accurately reflects my personal performance of the history, physical exam, medical decision making, and the department course for this patient. I have also personally directed, reviewed, and agree with the discharge instructions and disposition.
[2017-05-10 17:24] VITALS: BP 144/82; PULSE 100; TEMP 98
== END 2017-05-10 17:24 | disposition home or self-care (01) ==
LOC: C.ER 15:48
DX: Z76.5 Malingerer [conscious simulation] (principal)

== ENCOUNTER 2017-05-11 17:28 | Emergency (ER) | payer MEDICARE ==
[2017-05-11 17:29] VITALS: BMI 23.0
[2017-05-11 17:50] VITALS: O2SAT 100
--- NOTE | 2017-05-11 20:33 | C.PDOC ---
History Of Present Illness 57 year old male with multiple prior visits to the ED for similar complaints presents to the ED c/o hearing voices. Patient states he still hearing voices and wants to stay in the hospital. Patient reports he is not taking any medication at this time. Patient denies SI/HI, SOB, CP, fever, chills, nausea, vomit, abdominal pain. Time Seen by Provider: 05/11/17 19:40 Chief Complaint (Nursing): Medical Clearance History Per: Patient History/Exam Limitations: no limitations Onset/Duration Of Symptoms: Days Current Symptoms Are (Timing): Still Present Severity: None Reports Recently: Seen In ED (multiple times) Recent travel outside of the [place]: No Additional History Per: Patient Past Medical History Reviewed: Historical Data, Nursing Documentation, Vital Signs Vital Signs: Last Vital Signs Temp 97.2 F L 05/11/17 17:48 Pulse 76 05/11/17 17:48 Resp 18 05/11/17 17:48 BP Pulse Ox 100 05/11/17 20:46 - Medical History PMH: Anxiety, Asthma, Bipolar Disorder, Depression, Gastritis, Paranoia, Personality Disorder, Schizophrenia, Seizures, Chronic Pain (abd) Denies: HIV, Sexually Transmitted Disease Surgical History: No Surg Hx - [facility] Procedures APPLICATION OF SPLINT (04/09/14) CL FX REDUC-TIBIA/FIBULA (02/26/13) GROUP PSYCHOTHERAPY (07/30/16) INDIVID PSYCHOTHERAP NEC (12/17/13) INDIVIDUAL PSYCHOTHERAPY, BEHAVIORAL (01/29/16) INDIVIDUAL PSYCHOTHERAPY, COGNITIVE-BEHAVIORAL (07/30/16) INDIVIDUAL PSYCHOTHERAPY, SUPPORTIVE (07/22/16) MEDICATION MANAGEMENT (07/22/16) OTHER GROUP THERAPY (11/05/13) PSYCHIA INTERV/EVAL NEC (06/28/14) Family History: States: Unknown Family Hx - Social History Hx Tobacco Use: Yes (heavy smoker) Hx Alcohol Use: No Hx Substance Use: No - Immunization History Hx Tetanus Toxoid Vaccination: No Hx Influenza Vaccination: No Hx Pneumococcal Vaccination: No Review Of Systems Constitutional: Negative for: Fever Cardiovascular: Negative for: Chest Pain Respiratory: Negative for: Shortness of Breath Gastrointestinal: Negative for: Nausea, Vomiting, Abdominal Pain Skin: Negative for: Rash Neurological: Negative for: Weakness, Numbness Psych: Positive for: Other (hallucinations). Negative for: Depression, Suicidal ideation Physical Exam - Physical Exam Appears: Non-toxic, No Acute Distress Skin: Normal Color, Warm, Dry Head: Atraumatic, Normacephalic Eye(s): bilateral: Normal Inspection Oral Mucosa: Moist Neck: Normal ROM, Supple Cardiovascular: Rhythm Regular, No Murmur Respiratory: Normal Breath Sounds, No Wheezing Gastrointestinal/Abdominal: Soft, No Tenderness Extremity: Normal ROM Extremity: Bilateral: Atraumatic Neurological/Psych: Oriented x3, Normal Speech, Normal Cognition Gait: Steady ED Course And Treatment O2 Sat by Pulse Oximetry: 100 (On RA) Pulse Ox Interpretation: Normal Progress Note: Crisis evaluation. Case d/w [place] crisis counselor who discussed this with the psychiatrist corporation lawyer and advised that pt is safe to be d /c home for outpatient psych follow up Disposition Counseled Patient/Family Regarding: Diagnosis, Need For Followup - Disposition Referrals: [facility] [Outside] Disposition: HOME/ ROUTINE Disposition Time: 20:43 Condition: STABLE Additional Instructions: Please follow up in clinic Return to ER if worse Forms: [facility] (Swiss), General Discharge Instructions - Clinical Impression Clinical Impression: Auditory hallucination - PA / TRANSPORTATION SUPERVISOR / Resident Statement MD/DO has reviewed & agrees with the documentation as recorded. - Scribe Statement The provider has reviewed the documentation as recorded by the Scribe Jarod Jett All medical record entries made by the Scribe were at my direction and personally dictated by me. I have reviewed the chart and agree that the record accurately reflects my personal performance of the history, physical exam, medical decision making, and the department course for this patient. I have also personally directed, reviewed, and agree with the discharge instructions and disposition.
[2017-05-11 21:02] VITALS: BP 112/82; PULSE 100; RESP 16; TEMP 98
== END 2017-05-11 21:01 | disposition home or self-care (01) ==
LOC: C.ER 17:28
DX: R44.0 Auditory hallucinations (principal)

== ENCOUNTER 2017-05-12 00:25 | Emergency (ER) | payer MEDICARE ==
[2017-05-12 00:25] VITALS: BMI 23.0
[2017-05-12 00:35] VITALS: RESP 18
--- NOTE | 2017-05-12 02:22 | C.PDOC ---
History Of Present Illness 57 year old male presents to the ER requesting a place to spend the night. Denies physical complaints at this time. Chief Complaint (Nursing): Medical Clearance History Per: Patient History/Exam Limitations: no limitations Onset/Duration Of Symptoms: Hrs Current Symptoms Are (Timing): Still Present Recent travel outside of the [place]: No Past Medical History Reviewed: Historical Data, Nursing Documentation, Vital Signs Vital Signs: Last Vital Signs Temp 97.1 F L 05/12/17 00:34 Pulse 96 H 05/12/17 00:34 Resp 18 05/12/17 00:34 BP 126/82 05/12/17 00:34 Pulse Ox 96 05/12/17 02:22 - Medical History PMH: Anxiety, Asthma, Bipolar Disorder, Depression, Gastritis, Paranoia, Personality Disorder, Schizophrenia, Seizures, Chronic Pain (abd) Surgical History: - [facility] Procedures APPLICATION OF SPLINT (04/09/14) CL FX REDUC-TIBIA/FIBULA (02/26/13) GROUP PSYCHOTHERAPY (07/30/16) INDIVID PSYCHOTHERAP NEC (12/17/13) INDIVIDUAL PSYCHOTHERAPY, BEHAVIORAL (01/29/16) INDIVIDUAL PSYCHOTHERAPY, COGNITIVE-BEHAVIORAL (07/30/16) INDIVIDUAL PSYCHOTHERAPY, SUPPORTIVE (07/22/16) MEDICATION MANAGEMENT (07/22/16) OTHER GROUP THERAPY (11/05/13) PSYCHIA INTERV/EVAL NEC (06/28/14) Family History: States: Unknown Family Hx - Social History Hx Tobacco Use: Yes (heavy smoker) Hx Alcohol Use: No Hx Substance Use: No - Immunization History Hx Tetanus Toxoid Vaccination: No Hx Influenza Vaccination: No Hx Pneumococcal Vaccination: No Review Of Systems Constitutional: Negative for: Fever, Chills Gastrointestinal: Negative for: Nausea, Vomiting, Diarrhea Physical Exam - Physical Exam Appears: Non-toxic, No Acute Distress Skin: Normal Color, Warm, Dry Head: Atraumatic, Normacephalic Eye(s): bilateral: Normal Inspection Oral Mucosa: Moist Chest: Symmetrical, No Tenderness Cardiovascular: Rhythm Regular Respiratory: Normal Breath Sounds, No Rales, No Rhonchi, No Wheezing Gastrointestinal/Abdominal: Soft, No Tenderness Neurological/Psych: Oriented x3, Normal Speech ED Course And Treatment O2 Sat by Pulse Oximetry: 96 (Room air) Pulse Ox Interpretation: Normal Disposition Counseled Patient/Family Regarding: Diagnosis - Disposition Referrals: [facility] [Outside] Disposition: HOME/ ROUTINE Disposition Time: 05:50 Condition: STABLE Forms: [facility] (Rwandan) - POA Present On Arrival: None - Clinical Impression Clinical Impression: Auditory hallucination - Scribe Statement The provider has reviewed the documentation as recorded by the Scribe Howard Gottlieb All medical record entries made by the Scribe were at my direction and personally dictated by me. I have reviewed the chart and agree that the record accurately reflects my personal performance of the history, physical exam, medical decision making, and the department course for this patient. I have also personally directed, reviewed, and agree with the discharge instructions and disposition.
[2017-05-12 05:51] VITALS: BP 118/74; PULSE 71; TEMP 98.3; O2SAT 96
== END 2017-05-12 05:45 | disposition home or self-care (01) ==
LOC: SUPCPDRO 00:25 → C.ER 00:25
DX: R44.0 Auditory hallucinations (principal)

== ENCOUNTER 2017-05-12 18:26 | Emergency (ER) | payer MEDICARE ==
[2017-05-12 18:26] VITALS: BMI 23.0
[2017-05-12 19:43] VITALS: BP 134/89; PULSE 99; RESP 20; TEMP 98.3; O2SAT 99
--- NOTE | 2017-05-12 22:06 | C.PDOC ---
History Of Present Illness 57 year old male presents to the ER stating he his having hallucinations and is requesting to be admitted to the psych floor. Patient was evaluated by crisis recently and was refused admission by the psychiatrist who referred him to outpatient services instead. Patient has been seen and evaluated multiple times in the past for the same complaint and has had previous psych admissions in the past for the same. Denies suicidal ideation or homicidal ideation. Time Seen by Provider: 05/12/17 19:45 Chief Complaint (Nursing): Psychiatric Evaluation History Per: Patient History/Exam Limitations: no limitations Onset/Duration Of Symptoms: Days Current Symptoms Are (Timing): Still Present Suicide/Self Injury Attempted (Context): None Associated Symptoms: Other (Hallucinations) Involuntary Hold By: None Recent travel outside of the [place]: No Past Medical History Reviewed: Historical Data, Nursing Documentation, Vital Signs Vital Signs: Last Vital Signs Temp 98.3 F 05/12/17 19:39 Pulse 99 H 05/12/17 19:39 Resp 20 05/12/17 19:39 BP 134/89 05/12/17 19:39 Pulse Ox 99 05/12/17 22:46 - Medical History PMH: Anxiety, Asthma, Bipolar Disorder, Depression, Gastritis, Paranoia, Personality Disorder, Schizophrenia, Seizures, Chronic Pain (abd) Surgical History: - [facility] Procedures APPLICATION OF SPLINT (04/09/14) CL FX REDUC-TIBIA/FIBULA (02/26/13) GROUP PSYCHOTHERAPY (07/30/16) INDIVID PSYCHOTHERAP NEC (12/17/13) INDIVIDUAL PSYCHOTHERAPY, BEHAVIORAL (01/29/16) INDIVIDUAL PSYCHOTHERAPY, COGNITIVE-BEHAVIORAL (07/30/16) INDIVIDUAL PSYCHOTHERAPY, SUPPORTIVE (07/22/16) MEDICATION MANAGEMENT (07/22/16) OTHER GROUP THERAPY (11/05/13) PSYCHIA INTERV/EVAL NEC (06/28/14) Family History: States: Unknown Family Hx - Social History Hx Tobacco Use: Yes (heavy smoker) Hx Alcohol Use: No Hx Substance Use: No - Immunization History Hx Tetanus Toxoid Vaccination: No Hx Influenza Vaccination: No Hx Pneumococcal Vaccination: No Review Of Systems Constitutional: Negative for: Fever, Chills Gastrointestinal: Negative for: Nausea, Vomiting, Diarrhea Psych: Negative for: Suicidal ideation, Other (Homicidal ideation) Physical Exam - Physical Exam Appears: Non-toxic, No Acute Distress Skin: Normal Color, Warm, Dry Head: Atraumatic, Normacephalic Eye(s): bilateral: Normal Inspection Oral Mucosa: Moist Chest: Symmetrical, No Tenderness Cardiovascular: Rhythm Regular Respiratory: Normal Breath Sounds, No Rales, No Rhonchi, No Wheezing Gastrointestinal/Abdominal: Soft, No Tenderness Neurological/Psych: Oriented x3, Normal Speech ED Course And Treatment O2 Sat by Pulse Oximetry: 99 (Room air) Pulse Ox Interpretation: Normal Progress Note: Case was discussed with crisis who states patient is safe for discharge home with outpatient follow up. Disposition - Disposition Disposition: HOME/ ROUTINE Disposition Time: 01:00 Condition: STABLE Forms: [facility] (Macanese) - Clinical Impression Clinical Impression: Auditory hallucination - PA / BIOMETRIC FINGERPRINTING TECHNICIAN / Resident Statement MD/DO has reviewed & agrees with the documentation as recorded. - Scribe Statement The provider has reviewed the documentation as recorded by the Scribe Howard Gottlieb All medical record entries made by the Scribe were at my direction and personally dictated by me. I have reviewed the chart and agree that the record accurately reflects my personal performance of the history, physical exam, medical decision making, and the department course for this patient. I have also personally directed, reviewed, and agree with the discharge instructions and disposition.
== END 2017-05-12 20:37 | disposition home or self-care (01) ==
LOC: C.ER 18:26
DX: R44.0 Auditory hallucinations (principal)

== ENCOUNTER 2017-05-13 17:35 | Emergency (ER) | payer MEDICARE ==
[2017-05-13 17:36] VITALS: BMI 23.0
[2017-05-13 17:55] VITALS: RESP 18
--- NOTE | 2017-05-13 18:48 | C.PDOC ---
History Of Present Illness 57 y/o male with history of ETOH abuse presents to ED with complaints of abdominal pain and states he has not eaten all day. He is now hungry and requesting food. Patient is a frequent ED visitor for etoh intoxication and looking for a place to sleep. Patient denies suicidal ideation, homicidal ideation, nausea, vomiting, diarrhea or any other complaints at this time. Time Seen by Provider: 05/13/17 18:37 Chief Complaint (Nursing): Abdominal Pain History Per: Patient History/Exam Limitations: no limitations Onset/Duration Of Symptoms: Days Current Symptoms Are (Timing): Still Present Past Medical History Reviewed: Historical Data, Nursing Documentation, Vital Signs Vital Signs: Last Vital Signs Temp 98.4 F 05/13/17 19:59 Pulse 82 05/13/17 23:13 Resp 18 05/13/17 23:13 BP 110/68 05/13/17 23:13 Pulse Ox 98 05/13/17 23:13 - Medical History PMH: Anxiety, Asthma, Bipolar Disorder, Depression, Gastritis, Paranoia, Personality Disorder, Schizophrenia, Seizures, Chronic Pain (abd) Surgical History: No Surg Hx - [facility] Procedures APPLICATION OF SPLINT (04/09/14) CL FX REDUC-TIBIA/FIBULA (02/26/13) GROUP PSYCHOTHERAPY (07/30/16) INDIVID PSYCHOTHERAP NEC (12/17/13) INDIVIDUAL PSYCHOTHERAPY, BEHAVIORAL (01/29/16) INDIVIDUAL PSYCHOTHERAPY, COGNITIVE-BEHAVIORAL (07/30/16) INDIVIDUAL PSYCHOTHERAPY, SUPPORTIVE (07/22/16) MEDICATION MANAGEMENT (07/22/16) OTHER GROUP THERAPY (11/05/13) PSYCHIA INTERV/EVAL NEC (06/28/14) Family History: States: No Known Family Hx - Social History Hx Tobacco Use: Yes (heavy smoker) Hx Alcohol Use: No Hx Substance Use: No - Immunization History Hx Tetanus Toxoid Vaccination: No Hx Influenza Vaccination: No Hx Pneumococcal Vaccination: No Review Of Systems Constitutional: Negative for: Fever, Chills Cardiovascular: Negative for: Chest Pain Respiratory: Negative for: Shortness of Breath Gastrointestinal: Positive for: Abdominal Pain. Negative for: Nausea, Vomiting , Diarrhea Skin: Negative for: Rash Physical Exam - Physical Exam Appears: Non-toxic, No Acute Distress, Other (ETOH odor) Skin: Warm, Dry, No Rash Head: Atraumatic, Normacephalic Eye(s): bilateral: Normal Inspection Oral Mucosa: Moist Neck: Normal ROM, Supple Cardiovascular: Rhythm Regular Respiratory: Normal Breath Sounds, No Rales, No Rhonchi, No Wheezing Gastrointestinal/Abdominal: Soft, No Tenderness, No Guarding, No Rebound Extremity: Normal ROM, Capillary Refill (<2 seconds) Neurological/Psych: Oriented x3 ED Course And Treatment O2 Sat by Pulse Oximetry: 99 (RA) Pulse Ox Interpretation: Normal Progress Note: Patient eloped without notifying staff. Disposition - Disposition Disposition: ELOPEMENT - ER ONLY Disposition Time: 00:38 Condition: IMPROVED - Clinical Impression Clinical Impression: Alcohol intoxication, Abdominal pain, chronic, epigastric - Scribe Statement The provider has reviewed the documentation as recorded by the Leonard Puente All medical record entries made by the Leonard were at my direction and personally dictated by me. I have reviewed the chart and agree that the record accurately reflects my personal performance of the history, physical exam, medical decision making, and the department course for this patient. I have also personally directed, reviewed, and agree with the discharge instructions and disposition.
[2017-05-14 00:36] VITALS: BP 112/68; PULSE 85; TEMP 98
[2017-05-14 00:39] VITALS: O2SAT 99
== END 2017-05-14 00:42 | disposition left against medical advice (07) ==
LOC: C.ER 17:35
DX: F10.129 Alcohol abuse with intoxication, unspecified (principal); Y90.9 Presence of alcohol in blood, level not specified; R10.13 Epigastric pain

== ENCOUNTER 2017-05-14 20:41 | Emergency (ER) | payer MEDICARE ==
[2017-05-14 20:41] VITALS: BMI 23.0
[2017-05-15 02:42] VITALS: BP 136/74; PULSE 84; RESP 20; TEMP 98.6; O2SAT 100
--- NOTE | 2017-05-15 03:36 | C.PDOC ---
History Of Present Illness 57 y/o male with schizophrenia, well known to ed,. presents saying he wants to sleep. pt admits that his sister (with whom he lives) is out of town and he couldn't get into her apt and had no where to go. pt denies any physical complaints,. denies ah, si and hi, Time Seen by Provider: 05/15/17 03:35 Chief Complaint (Nursing): Psychiatric Evaluation History Per: Patient History/Exam Limitations: no limitations Suicide/Self Injury Attempted (Context): None Modifying Factor(s): None Past Medical History Reviewed: Historical Data, Nursing Documentation, Vital Signs Vital Signs: Last Vital Signs Temp 98.6 F 05/15/17 02:41 Pulse 84 05/15/17 02:41 Resp 20 05/15/17 02:41 BP 136/74 05/15/17 02:41 Pulse Ox 100 05/15/17 04:36 - Medical History PMH: Anxiety, Asthma, Bipolar Disorder, Depression, Gastritis, Paranoia, Personality Disorder, Schizophrenia, Seizures, Chronic Pain (abd) Denies: HIV, Sexually Transmitted Disease Surgical History: - [facility] Procedures APPLICATION OF SPLINT (04/09/14) CL FX REDUC-TIBIA/FIBULA (02/26/13) GROUP PSYCHOTHERAPY (07/30/16) INDIVID PSYCHOTHERAP NEC (12/17/13) INDIVIDUAL PSYCHOTHERAPY, BEHAVIORAL (01/29/16) INDIVIDUAL PSYCHOTHERAPY, COGNITIVE-BEHAVIORAL (07/30/16) INDIVIDUAL PSYCHOTHERAPY, SUPPORTIVE (07/22/16) MEDICATION MANAGEMENT (07/22/16) OTHER GROUP THERAPY (11/05/13) PSYCHIA INTERV/EVAL NEC (06/28/14) Family History: States: Unknown Family Hx - Social History Hx Tobacco Use: Yes (heavy smoker) Hx Alcohol Use: No Hx Substance Use: No - Immunization History Hx Tetanus Toxoid Vaccination: No Hx Influenza Vaccination: No Hx Pneumococcal Vaccination: No Review Of Systems Constitutional: Negative for: Fever, Chills Cardiovascular: Negative for: Chest Pain Respiratory: Negative for: Cough, Shortness of Breath Gastrointestinal: Negative for: Vomiting, Abdominal Pain, Diarrhea Skin: Negative for: Rash Neurological: Negative for: Weakness, Numbness Psych: Negative for: Suicidal ideation Physical Exam - Physical Exam Appears: Non-toxic, No Acute Distress Skin: Warm, Dry Head: Atraumatic, Normacephalic Neck: Supple Chest: No Deformity, No Tenderness Cardiovascular: Rhythm Regular, No Murmur Respiratory: No Decreased Breath Sounds, No Wheezing Gastrointestinal/Abdominal: Bowel Sounds, Soft, No Tenderness Neurological/Psych: Oriented x3, Normal Speech, Normal Cognition, Normal Motor ED Course And Treatment O2 Sat by Pulse Oximetry: 100 Medical Decision Making Medical Decision Making: pt placed in bed approx 3 10 am 433 am pt here to sleep, no acute complaints. will d/c at 6 Disposition Counseled Patient/Family Regarding: Diagnosis, Need For Followup - Disposition Disposition: HOME/ ROUTINE Disposition Time: 06:08 Condition: STABLE Forms: [facility] (Wallisian), General Discharge Instructions - Clinical Impression Clinical Impression: Homeless
== END 2017-05-15 06:36 | disposition home or self-care (01) ==
LOC: C.ER 20:41
DX: Z59.0 Homelessness (principal); F20.9 Schizophrenia, unspecified; F17.210 Nicotine dependence, cigarettes, uncomplicated

== ENCOUNTER 2017-05-16 19:48 | Emergency (ER) | payer MEDICARE ==
[2017-05-16 19:48] VITALS: BMI 23.0
--- NOTE | 2017-05-16 20:30 | C.PDOC ---
History Of Present Illness 57 year old male presents to the ED c/o hearing voices as well as abdominal pain. Patient is well known to this ED with multiple visits for the same complaint. Patient states he is looking for a place to stay and pass the night. Patient denies SI/HI, SOB, CP, nausea, vomit, diarrhea. Time Seen by Provider: 05/16/17 20:29 Chief Complaint (Nursing): Psychiatric Evaluation History Per: Patient History/Exam Limitations: no limitations Onset/Duration Of Symptoms: Days Current Symptoms Are (Timing): Still Present Suicide/Self Injury Attempted (Context): None Associated Symptoms: denies: Depression, Suicidal Thoughts, Suicidal Plan Involuntary Hold By: None Recent travel outside of the [place]: No Additional History Per: Patient Past Medical History Reviewed: Historical Data, Nursing Documentation, Vital Signs Vital Signs: Last Vital Signs Temp 98.7 F 05/16/17 23:29 Pulse 94 H 05/16/17 23:29 Resp 16 05/16/17 23:29 BP 108/78 05/16/17 23:29 Pulse Ox 97 05/16/17 23:29 - Medical History PMH: Anxiety, Asthma, Bipolar Disorder, Depression, Gastritis, Paranoia, Personality Disorder, Schizophrenia, Seizures, Chronic Pain (abd) Denies: HIV, Sexually Transmitted Disease Surgical History: No Surg Hx - [facility] Procedures APPLICATION OF SPLINT (04/09/14) CL FX REDUC-TIBIA/FIBULA (02/26/13) GROUP PSYCHOTHERAPY (07/30/16) INDIVID PSYCHOTHERAP NEC (12/17/13) INDIVIDUAL PSYCHOTHERAPY, BEHAVIORAL (01/29/16) INDIVIDUAL PSYCHOTHERAPY, COGNITIVE-BEHAVIORAL (07/30/16) INDIVIDUAL PSYCHOTHERAPY, SUPPORTIVE (07/22/16) MEDICATION MANAGEMENT (07/22/16) OTHER GROUP THERAPY (11/05/13) PSYCHIA INTERV/EVAL NEC (06/28/14) Family History: States: Unknown Family Hx - Social History Hx Tobacco Use: Yes (heavy smoker) Hx Alcohol Use: No Hx Substance Use: No - Immunization History Hx Tetanus Toxoid Vaccination: No Hx Influenza Vaccination: No Hx Pneumococcal Vaccination: No Review Of Systems Constitutional: Negative for: Fever, Chills Cardiovascular: Negative for: Chest Pain, Palpitations Respiratory: Negative for: Cough, Shortness of Breath Gastrointestinal: Negative for: Nausea, Vomiting, Abdominal Pain Skin: Negative for: Rash Neurological: Negative for: Weakness, Numbness Psych: Negative for: Depression, Suicidal ideation Physical Exam - Physical Exam Appears: Non-toxic, No Acute Distress Skin: Warm, Dry Head: Normacephalic Nose: No Discharge, No Deformity Oral Mucosa: Moist Neck: Normal ROM, Supple Chest: Symmetrical Cardiovascular: Rhythm Regular, No Murmur Respiratory: No Decreased Breath Sounds, No Rales, No Rhonchi, No Wheezing Gastrointestinal/Abdominal: Soft, No Tenderness, No Guarding, No Rebound Extremity: No Tenderness, No Swelling Neurological/Psych: Oriented x3 ED Course And Treatment O2 Sat by Pulse Oximetry: 98 (On RA) Pulse Ox Interpretation: Normal Reevaluation Time: 05:47 Reassessment Condition: Improved Disposition Counseled Patient/Family Regarding: Studies Performed, Diagnosis - Disposition Referrals: [facility] [Outside] Disposition: HOME/ ROUTINE Disposition Time: 20:30 Condition: FAIR Instructions: Schizophrenia (ED) Forms: [email or web address] (Indonesian) - Clinical Impression Clinical Impression: Schizophrenia - Scribe Statement The provider has reviewed the documentation as recorded by the Scribe Jarod Jett All medical record entries made by the Scribe were at my direction and personally dictated by me. I have reviewed the chart and agree that the record accurately reflects my personal performance of the history, physical exam, medical decision making, and the department course for this patient. I have also personally directed, reviewed, and agree with the discharge instructions and disposition.
[2017-05-16 23:30] VITALS: BP 108/78; PULSE 94; RESP 16; TEMP 98.7
[2017-05-17 05:48] VITALS: O2SAT 98
== END 2017-05-17 05:43 | disposition home or self-care (01) ==
LOC: C.ER 19:48
DX: F20.9 Schizophrenia, unspecified (principal)

== ENCOUNTER 2017-05-17 23:21 | Emergency (ER) | payer MEDICARE ==
[2017-05-17 23:21] VITALS: BMI 23.0
[2017-05-18 00:19] VITALS: BP 110/75; PULSE 81; RESP 17; TEMP 98.3; O2SAT 99
--- NOTE | 2017-05-18 00:24 | C.PDOC ---
Chief Complaint (Nursing): Medical Clearance Past Medical History Vital Signs: Last Vital Signs Temp 98.3 F 05/18/17 00:16 Pulse 81 05/18/17 00:16 Resp 17 05/18/17 00:16 BP 110/75 05/18/17 00:16 Pulse Ox 99 05/18/17 00:16 - Medical History PMH: Anxiety, Asthma, Bipolar Disorder, Depression, Gastritis, Paranoia, Personality Disorder, Schizophrenia, Seizures, Chronic Pain (abd) Denies: HIV, Sexually Transmitted Disease Surgical History: - [facility] Procedures APPLICATION OF SPLINT (04/09/14) CL FX REDUC-TIBIA/FIBULA (02/26/13) GROUP PSYCHOTHERAPY (07/30/16) INDIVID PSYCHOTHERAP NEC (12/17/13) INDIVIDUAL PSYCHOTHERAPY, BEHAVIORAL (01/29/16) INDIVIDUAL PSYCHOTHERAPY, COGNITIVE-BEHAVIORAL (07/30/16) INDIVIDUAL PSYCHOTHERAPY, SUPPORTIVE (07/22/16) MEDICATION MANAGEMENT (07/22/16) OTHER GROUP THERAPY (11/05/13) PSYCHIA INTERV/EVAL NEC (06/28/14) Family History: States: Unknown Family Hx - Social History Hx Tobacco Use: Yes (heavy smoker) Hx Alcohol Use: No Hx Substance Use: No - Immunization History Hx Tetanus Toxoid Vaccination: No Hx Influenza Vaccination: No Hx Pneumococcal Vaccination: No ED Course And Treatment O2 Sat by Pulse Oximetry: 99 Disposition - Disposition Referrals: Non [facility] Provider, [Primary Care Provider] -
--- NOTE | 2017-05-18 03:26 | C.PDOC ---
History Of Present Illness 57yo male, presents to ER with complaints of auditory hallucinations. Patient is well known to ED and provider for multiple visits with similar complaints. Patient currently denies any suicidal or homicidal ideation. Patient has no medical complaints. Now requesting a place to sleep. Time Seen by Provider: 05/18/17 00:26 Chief Complaint (Nursing): Medical Clearance History Per: Patient History/Exam Limitations: no limitations Onset/Duration Of Symptoms: Persistent Reports Recently: Seen In ED Past Medical History Reviewed: Historical Data, Nursing Documentation, Vital Signs Vital Signs: Last Vital Signs Temp 98.3 F 05/18/17 00:16 Pulse 81 05/18/17 00:16 Resp 17 05/18/17 00:16 BP 110/75 05/18/17 00:16 Pulse Ox 99 05/18/17 03:26 - Medical History PMH: Anxiety, Asthma, Bipolar Disorder, Depression, Gastritis, Paranoia, Personality Disorder, Schizophrenia, Seizures, Chronic Pain (abd) Denies: HIV, Sexually Transmitted Disease Surgical History: No Surg Hx - [facility] Procedures APPLICATION OF SPLINT (04/09/14) CL FX REDUC-TIBIA/FIBULA (02/26/13) GROUP PSYCHOTHERAPY (07/30/16) INDIVID PSYCHOTHERAP NEC (12/17/13) INDIVIDUAL PSYCHOTHERAPY, BEHAVIORAL (01/29/16) INDIVIDUAL PSYCHOTHERAPY, COGNITIVE-BEHAVIORAL (07/30/16) INDIVIDUAL PSYCHOTHERAPY, SUPPORTIVE (07/22/16) MEDICATION MANAGEMENT (07/22/16) OTHER GROUP THERAPY (11/05/13) PSYCHIA INTERV/EVAL NEC (06/28/14) Family History: States: Unknown Family Hx - Social History Hx Tobacco Use: Yes (heavy smoker) Hx Alcohol Use: No Hx Substance Use: No - Immunization History Hx Tetanus Toxoid Vaccination: No Hx Influenza Vaccination: No Hx Pneumococcal Vaccination: No Review Of Systems Constitutional: Negative for: Fever, Chills Cardiovascular: Negative for: Chest Pain Respiratory: Negative for: Shortness of Breath Psych: Positive for: Other (hallucinations). Negative for: Suicidal ideation Physical Exam - Physical Exam Appears: Non-toxic, No Acute Distress Skin: Normal Color Head: Normacephalic Neck: Supple Respiratory: No Other (respiratory distress) Extremity: Normal ROM Neurological/Psych: Oriented x3, Normal Speech, Normal Cognition Gait: Steady ED Course And Treatment O2 Sat by Pulse Oximetry: 99 (RA) Pulse Ox Interpretation: Normal Progress Note: Patient with well exam, resting in chair. In no acute distress. Disposition - Disposition Referrals: Non [facility] Provider, [Primary Care Provider] - Disposition: HOME/ ROUTINE Disposition Time: 02:15 Condition: GOOD Instructions: Schizophrenia (ED) - Clinical Impression Clinical Impression: Schizophrenia - PA / SAFETY INVESTIGATOR / Resident Statement MD/DO has reviewed & agrees with the documentation as recorded. - Scribe Statement The provider has reviewed the documentation as recorded by the Scribe (Cleo Azul) Provider Scribe Attestation: All medical record entries made by the Scribe were at my direction and personally dictated by me. I have reviewed the chart and agree that the record accurately reflects my personal performance of the history, physical exam, medical decision making, and the department course for this patient. I have also personally directed, reviewed, and agree with the discharge instructions and disposition.
== END 2017-05-18 01:17 | disposition home or self-care (01) ==
LOC: SUPCPDRO 23:21 → C.ER 23:21
DX: F20.9 Schizophrenia, unspecified (principal); F17.210 Nicotine dependence, cigarettes, uncomplicated

== ENCOUNTER 2017-05-18 21:07 | Emergency (ER) | payer MEDICARE ==
[2017-05-18 21:07] VITALS: BMI 23.0
[2017-05-18 22:00] VITALS: BP 150/86; PULSE 95; RESP 20; TEMP 98.5; O2SAT 98
== END 2017-05-18 21:45 | disposition left against medical advice (07) ==
LOC: SUPCPDRO 21:07 → C.ER 21:07
DX: Z02.89 Encounter for other administrative examinations (principal)

== ENCOUNTER 2017-05-19 07:34 | Emergency (ER) | payer MEDICARE ==
[2017-05-19 07:35] VITALS: BMI 23.0
[2017-05-19 07:40] VITALS: BP 135/88; PULSE 68; RESP 18; TEMP 97.7; O2SAT 97
--- NOTE | 2017-05-19 08:09 | C.PDOC ---
History Of Present Illness 57 y/o male presents to ED stating he is hearing voice and with complaints of Epigastric "burning" abdominal pain. Patient is a frequent ED visitor with similar complaints and requesting to stay at hospital. Patient denies suicidal ideation, homicidal ideation, nausea, vomiting, diarrhea or any other complaints at this time. Time Seen by Provider: 05/19/17 07:43 Chief Complaint (Nursing): Abdominal Pain History Per: Patient History/Exam Limitations: no limitations Onset/Duration Of Symptoms: Days Current Symptoms Are (Timing): Still Present Location Of Pain/Discomfort: Epigastric Quality Of Discomfort: Burning Past Medical History Reviewed: Historical Data, Nursing Documentation, Vital Signs Vital Signs: Last Vital Signs Temp 97.7 F 05/19/17 07:38 Pulse 68 05/19/17 07:38 Resp 18 05/19/17 07:38 BP 135/88 05/19/17 07:38 Pulse Ox 97 05/19/17 08:26 - Medical History PMH: Anxiety, Asthma, Bipolar Disorder, Depression, Gastritis, Paranoia, Personality Disorder, Schizophrenia, Seizures, Chronic Pain (abd) Surgical History: No Surg Hx - [facility] Procedures APPLICATION OF SPLINT (04/09/14) CL FX REDUC-TIBIA/FIBULA (02/26/13) GROUP PSYCHOTHERAPY (07/30/16) INDIVID PSYCHOTHERAP NEC (12/17/13) INDIVIDUAL PSYCHOTHERAPY, BEHAVIORAL (01/29/16) INDIVIDUAL PSYCHOTHERAPY, COGNITIVE-BEHAVIORAL (07/30/16) INDIVIDUAL PSYCHOTHERAPY, SUPPORTIVE (07/22/16) MEDICATION MANAGEMENT (07/22/16) OTHER GROUP THERAPY (11/05/13) PSYCHIA INTERV/EVAL NEC (06/28/14) Family History: States: No Known Family Hx - Social History Hx Tobacco Use: Yes (heavy smoker) Hx Alcohol Use: No Hx Substance Use: No - Immunization History Hx Tetanus Toxoid Vaccination: No Hx Influenza Vaccination: No Hx Pneumococcal Vaccination: No Review Of Systems Except As Marked, All Systems Reviewed And Found Negative. Gastrointestinal: Positive for: Abdominal Pain Physical Exam - Physical Exam Appears: Non-toxic, No Acute Distress Skin: Warm, Dry, No Rash Head: Atraumatic, Normacephalic Oral Mucosa: Moist Neck: Normal ROM, Supple Cardiovascular: Rhythm Regular Respiratory: Normal Breath Sounds, No Rales, No Rhonchi, No Wheezing Gastrointestinal/Abdominal: Soft, No Tenderness, No Guarding, No Rebound Extremity: Normal ROM, Capillary Refill (<2 seconds) Neurological/Psych: Oriented x3 ED Course And Treatment O2 Sat by Pulse Oximetry: 97 (RA) Pulse Ox Interpretation: Normal Progress Note: Pepcid and Tylenol administered. Discussed with patient to follow up with outpatient Psych Disposition Counseled Patient/Family Regarding: Diagnosis, Need For Followup, Rx Given - Disposition Referrals: [facility] [Outside] [facility] [Outside] Disposition: HOME/ ROUTINE Disposition Time: 08:10 Condition: STABLE Additional Instructions: YOU NEED TO FOLLOW UP WITH PSYCHIATRIST FOR FURTHER EVALUATION!! RETURN TO ER IF YOUR SYMPTOMS WORSEN Instructions: Schizophrenia (ED) Forms: [employer] (Togolese) Print Language: MAORI - Clinical Impression Clinical Impression: Chronic abdominal pain, Auditory hallucination - Scribe Statement The provider has reviewed the documentation as recorded by the Madhavibalexis Puente All medical record entries made by the Leonard were at my direction and personally dictated by me. I have reviewed the chart and agree that the record accurately reflects my personal performance of the history, physical exam, medical decision making, and the department course for this patient. I have also personally directed, reviewed, and agree with the discharge instructions and disposition.
== END 2017-05-19 08:29 | disposition home or self-care (01) ==
LOC: C.ER 07:34
DX: G89.29 Other chronic pain (principal); R10.9 Unspecified abdominal pain; R44.0 Auditory hallucinations; F17.210 Nicotine dependence, cigarettes, uncomplicated

== ENCOUNTER 2017-05-19 22:55 | Emergency (ER) | payer MEDICARE ==
[2017-05-19 22:55] VITALS: BMI 23.0
--- NOTE | 2017-05-20 00:40 | C.PDOC ---
History Of Present Illness 57 y/o male presents to ED with complaint of auditory hallucination and abdominal pain which began today. Patient states he is hearing voices that are telling him to "kill himself." Patient is a frequent ED visitor with similar complaints and requesting to stay at hospital. He was last evaluated at 0800 today for similar complaints. Patient denies suicidal ideation, homicidal ideation, nausea, vomiting, diarrhea or any other complaints at this time. Time Seen by Provider: 05/19/17 23:49 Chief Complaint (Nursing): Medical Clearance History Per: Patient History/Exam Limitations: no limitations Onset/Duration Of Symptoms: Hrs Current Symptoms Are (Timing): Still Present Reports Recently: Seen In ED, Treated By A Physician Additional History Per: Patient Past Medical History Reviewed: Historical Data, Nursing Documentation, Vital Signs Vital Signs: Last Vital Signs Temp 97.8 F 05/20/17 03:59 Pulse 81 05/20/17 03:59 Resp 18 05/20/17 03:59 BP 133/76 05/20/17 03:59 Pulse Ox 99 05/20/17 03:59 - Medical History PMH: Anxiety, Asthma, Bipolar Disorder, Depression, Gastritis, Paranoia, Personality Disorder, Schizophrenia, Seizures, Chronic Pain (abd) Denies: HIV, Sexually Transmitted Disease Surgical History: No Surg Hx - [facility] Procedures APPLICATION OF SPLINT (04/09/14) CL FX REDUC-TIBIA/FIBULA (02/26/13) GROUP PSYCHOTHERAPY (07/30/16) INDIVID PSYCHOTHERAP NEC (12/17/13) INDIVIDUAL PSYCHOTHERAPY, BEHAVIORAL (01/29/16) INDIVIDUAL PSYCHOTHERAPY, COGNITIVE-BEHAVIORAL (07/30/16) INDIVIDUAL PSYCHOTHERAPY, SUPPORTIVE (07/22/16) MEDICATION MANAGEMENT (07/22/16) OTHER GROUP THERAPY (11/05/13) PSYCHIA INTERV/EVAL NEC (06/28/14) Family History: States: Unknown Family Hx - Social History Hx Tobacco Use: Yes (heavy smoker) Hx Alcohol Use: No Hx Substance Use: No - Immunization History Hx Tetanus Toxoid Vaccination: No Hx Influenza Vaccination: No Hx Pneumococcal Vaccination: No Review Of Systems Except As Marked, All Systems Reviewed And Found Negative. Constitutional: Negative for: Fever, Chills ENT: Negative for: Nose Discharge Cardiovascular: Negative for: Chest Pain, Palpitations, Orthopnea Respiratory: Negative for: Cough Gastrointestinal: Positive for: Abdominal Pain. Negative for: Nausea, Vomiting , Diarrhea, Constipation, Melena, Hematochezia, Hematemesis Skin: Negative for: Rash, Bruising Neurological: Negative for: Seizures, Altered Mental Status Psych: Positive for: Other (auditory hallucination). Negative for: Suicidal ideation Physical Exam - Physical Exam Appears: Non-toxic, No Acute Distress, Other (disheveled) Skin: Normal Color, Warm, Dry Head: Atraumatic, Normacephalic Eye(s): bilateral: PERRL Oral Mucosa: Moist Throat: No Erythema, No Drooling Neck: Trachea Midline, No Midline Cervical Tenderness, No Paracervical Tenderness, No Step Off Deformity, Supple Cardiovascular: Rhythm Regular, No Murmur Respiratory: No Decreased Breath Sounds, No Accessory Muscle Use, No Rales, No Rhonchi, No Wheezing Gastrointestinal/Abdominal: Soft, No Tenderness, No Distention, No Guarding, No Rebound Back: No Vertebral Tenderness Extremity: Normal ROM, Capillary Refill (less than 2 seconds ) Neurological/Psych: Oriented x3, Normal Speech, Normal Cognition ED Course And Treatment O2 Sat by Pulse Oximetry: 98 (on RA ) Pulse Ox Interpretation: Normal Progress Note: Pepcid PO and Tylenol PO administered. Pt was noted eating chocolate in waiting area and asking for food immediatly on arrival to ED. Records from previous visits review, daily visits to [facility] ED. Pt was last seen here in ED today AM at 8:30. can worker called for consul tdue to auditory hallucination with suicidal ideation. After pt seen in ED by reinforcing iron worker helper, case discussed with [id number] . As per , recommend hold patient in ED until AM, will evaluated patient personally in ED. Pt was OBS in ED for 8 hrs, sleeping comfortably, not in any aparent distress. Afebrile, hemodynamicaly stable. Non-toxic. Abd: benign. Neuorlogicaly intact. Disposition - Disposition Disposition Time: 07:00 Condition: STABLE Forms: [facility] (Marshallese) - Clinical Impression Clinical Impression: Abdominal pain, Psychiatric disorder - PA / POLICE DETENTION ATTENDANT / Resident Statement MD/DO has reviewed & agrees with the documentation as recorded. - Scribe Statement The provider has reviewed the documentation as recorded by the Scribe (Rosi Chow) All medical record entries made by the Madhavibalexis were at my direction and personally dictated by me. I have reviewed the chart and agree that the record accurately reflects my personal performance of the history, physical exam, medical decision making, and the department course for this patient. I have also personally directed, reviewed, and agree with the discharge instructions and disposition. Physician Patient Turnover Patient Signed Over To: Vijaya Gross Handoff Comments: Psych eval by , re-eval, dispo
[2017-05-20 07:07] VITALS: BP 116/77; PULSE 96; RESP 20; TEMP 98.3; O2SAT 99
== END 2017-05-20 07:10 | disposition left against medical advice (07) ==
LOC: C.ER 22:55
DX: R10.9 Unspecified abdominal pain (principal); F99 Mental disorder, not otherwise specified; F20.9 Schizophrenia, unspecified; F17.210 Nicotine dependence, cigarettes, uncomplicated

== ENCOUNTER 2017-05-20 20:23 | Emergency (ER) | payer MEDICARE ==
[2017-05-20 20:23] VITALS: BMI 23.0
[2017-05-20 20:44] VITALS: RESP 18; O2SAT 97
--- NOTE | 2017-05-20 20:49 | C.PDOC ---
History Of Present Illness The patient presents to the ED with complaints of auditory hallucinations. Patient is familiar to the ED and has had many prior presentations with similar complaints. Patient is requesting a place to stay for the night and denies suicidal/homicidal ideation or any physical complaints at this time. Time Seen by Provider: 05/20/17 20:48 Chief Complaint (Nursing): Psychiatric Evaluation History Per: Patient History/Exam Limitations: no limitations Onset/Duration Of Symptoms: Hrs Current Symptoms Are (Timing): Still Present Suicide/Self Injury Attempted (Context): None Modifying Factor(s): None Associated Symptoms: denies: Suicidal Thoughts, Suicidal Plan Involuntary Hold By: None Recent travel outside of the [place]: No Additional History Per: Patient Past Medical History Reviewed: Historical Data, Nursing Documentation, Vital Signs Vital Signs: Last Vital Signs Temp 97.3 F L 05/20/17 20:42 Pulse 93 H 05/20/17 20:42 Resp 18 05/20/17 20:42 BP 127/85 05/20/17 20:42 Pulse Ox 97 05/20/17 20:57 - Medical History PMH: Anxiety, Asthma, Bipolar Disorder, Depression, Gastritis, Paranoia, Personality Disorder, Schizophrenia, Seizures (Pt did not report this to Undersigned.), Chronic Pain (abd) Denies: Diabetes, Hepatitis, HIV, HTN, Sexually Transmitted Disease Surgical History: No Surg Hx - [facility] Procedures APPLICATION OF SPLINT (04/09/14) CL FX REDUC-TIBIA/FIBULA (02/26/13) GROUP PSYCHOTHERAPY (07/30/16) INDIVID PSYCHOTHERAP NEC (12/17/13) INDIVIDUAL PSYCHOTHERAPY, BEHAVIORAL (01/29/16) INDIVIDUAL PSYCHOTHERAPY, COGNITIVE-BEHAVIORAL (07/30/16) INDIVIDUAL PSYCHOTHERAPY, SUPPORTIVE (07/22/16) MEDICATION MANAGEMENT (07/22/16) OTHER GROUP THERAPY (11/05/13) PSYCHIA INTERV/EVAL NEC (06/28/14) Family History: States: Unknown Family Hx - Social History Hx Tobacco Use: Yes (heavy smoker) Hx Alcohol Use: No Hx Substance Use: No - Immunization History Hx Tetanus Toxoid Vaccination: No Hx Influenza Vaccination: No Hx Pneumococcal Vaccination: No Review Of Systems Constitutional: Negative for: Fever, Chills Cardiovascular: Negative for: Chest Pain, Palpitations Respiratory: Negative for: Cough, Shortness of Breath Gastrointestinal: Negative for: Nausea, Vomiting, Abdominal Pain Skin: Negative for: Rash, Lesions, Jaundice, Bruising Psych: Positive for: Other (auditory hallucinations ). Negative for: Suicidal ideation Physical Exam - Physical Exam Appears: Non-toxic, No Acute Distress Skin: Warm, Dry Head: Normacephalic Eye(s): bilateral: Normal Inspection Oral Mucosa: Moist Neck: Supple Chest: Symmetrical, No Deformity, No Tenderness Cardiovascular: Rhythm Regular, No Murmur Respiratory: No Rales, No Rhonchi, No Wheezing Extremity: Normal ROM, Capillary Refill (less than 2 seconds ) Neurological/Psych: Oriented x3 ED Course And Treatment O2 Sat by Pulse Oximetry: 97 (on RA ) Pulse Ox Interpretation: Normal Reevaluation Time: 23:52 Reassessment Condition: Improved Disposition Counseled Patient/Family Regarding: Studies Performed, Diagnosis, Need For Followup - Disposition Referrals: [facility] [Outside] Disposition: HOME/ ROUTINE Disposition Time: 20:49 Condition: FAIR Forms: [facility] (Grenadian), General Discharge Instructions - Clinical Impression Clinical Impression: Schizophrenia - Scribe Statement The provider has reviewed the documentation as recorded by the Scribe (Rois Chow) Provider Attestation: All medical record entries made by the Scribe were at my direction and personally dictated by me. I have reviewed the chart and agree that the record accurately reflects my personal performance of the history, physical exam, medical decision making, and the department course for this patient. I have also personally directed, reviewed, and agree with the discharge instructions and disposition.
[2017-05-20 23:53] VITALS: BP 135/69; PULSE 87; TEMP 98
== END 2017-05-20 23:30 | disposition home or self-care (01) ==
LOC: C.ER 20:23
DX: F20.9 Schizophrenia, unspecified (principal); F17.210 Nicotine dependence, cigarettes, uncomplicated

== ENCOUNTER 2017-05-21 22:16 | Emergency (ER) | payer MEDICARE ==
[2017-05-21 22:16] VITALS: BMI 23.0
[2017-05-21 23:12] VITALS: BP 120/70; PULSE 80; RESP 14; TEMP 97.5; O2SAT 98
--- NOTE | 2017-05-22 04:08 | C.PDOC ---
History Of Present Illness 57 year old male presents to the ED c/o hearing voices. Patient is well known to the ED and has multiple prior visits for the same complaints. Patient is unable to state what are the voices saying, states he wants a place to stay the night. Chief Complaint (Nursing): Psychiatric Evaluation History Per: Patient History/Exam Limitations: intoxication Onset/Duration Of Symptoms: Hrs Current Symptoms Are (Timing): Still Present Suicide/Self Injury Attempted (Context): None Modifying Factor(s): Alcohol Associated Symptoms: denies: Depression, Suicidal Thoughts, Suicidal Plan Recent travel outside of the [place]: No Additional History Per: Patient Past Medical History Reviewed: Historical Data, Nursing Documentation, Vital Signs Vital Signs: Last Vital Signs Temp 97.5 F L 05/21/17 23:08 Pulse 80 05/21/17 23:08 Resp 14 05/21/17 23:08 BP 120/70 05/21/17 23:08 Pulse Ox 98 05/22/17 04:10 - Medical History PMH: Anxiety, Asthma, Bipolar Disorder, Depression, Gastritis, Paranoia, Personality Disorder, Schizophrenia, Seizures (Pt did not report this to Undersigned.), Chronic Pain (abd) Denies: Diabetes, Hepatitis, HIV, HTN, Sexually Transmitted Disease Surgical History: - [facility] Procedures APPLICATION OF SPLINT (04/09/14) CL FX REDUC-TIBIA/FIBULA (02/26/13) GROUP PSYCHOTHERAPY (07/30/16) INDIVID PSYCHOTHERAP NEC (12/17/13) INDIVIDUAL PSYCHOTHERAPY, BEHAVIORAL (01/29/16) INDIVIDUAL PSYCHOTHERAPY, COGNITIVE-BEHAVIORAL (07/30/16) INDIVIDUAL PSYCHOTHERAPY, SUPPORTIVE (07/22/16) MEDICATION MANAGEMENT (07/22/16) OTHER GROUP THERAPY (11/05/13) PSYCHIA INTERV/EVAL NEC (06/28/14) Family History: States: Unknown Family Hx - Social History Hx Tobacco Use: Yes (heavy smoker) Hx Alcohol Use: No Hx Substance Use: No - Immunization History Hx Tetanus Toxoid Vaccination: No Hx Influenza Vaccination: No Hx Pneumococcal Vaccination: No Review Of Systems Constitutional: Negative for: Fever, Chills Cardiovascular: Negative for: Chest Pain Respiratory: Negative for: Cough, Shortness of Breath Gastrointestinal: Negative for: Nausea, Vomiting, Abdominal Pain Skin: Negative for: Rash Neurological: Negative for: Weakness, Numbness Physical Exam - Physical Exam Appears: Non-toxic, Unkempt Skin: Normal Color, Warm, Dry Head: Atraumatic, Normacephalic Eye(s): bilateral: Normal Inspection Nose: No Discharge, No Deformity Oral Mucosa: Moist Neck: Normal ROM, Supple Chest: Symmetrical Cardiovascular: Rhythm Regular, No Murmur Respiratory: Normal Breath Sounds, No Rales, No Rhonchi, No Wheezing Gastrointestinal/Abdominal: Soft, No Tenderness, No Guarding, No Rebound Extremity: Normal ROM, No Tenderness, No Deformity, No Swelling Neurological/Psych: Oriented x3, Normal Speech, Normal Cognition ED Course And Treatment O2 Sat by Pulse Oximetry: 98 (On RA) Pulse Ox Interpretation: Normal Disposition - Disposition Disposition: ELOPEMENT - ER ONLY Disposition Time: 04:12 Condition: GOOD Forms: [facility] (Marshallese) - Clinical Impression Clinical Impression: Schizophrenia - Scribe Statement The provider has reviewed the documentation as recorded by the Scribe Jarod Jett All medical record entries made by the Scribe were at my direction and personally dictated by me. I have reviewed the chart and agree that the record accurately reflects my personal performance of the history, physical exam, medical decision making, and the department course for this patient. I have also personally directed, reviewed, and agree with the discharge instructions and disposition.
== END 2017-05-22 01:54 | disposition left against medical advice (07) ==
LOC: C.ER 22:16
DX: F20.9 Schizophrenia, unspecified (principal)

== ENCOUNTER 2017-05-22 12:01 | Emergency (ER) | payer MEDICARE ==
[2017-05-22 12:01] VITALS: BMI 23.0
== END 2017-05-22 12:34 | disposition left against medical advice (07) ==
LOC: C.ER 12:01
DX: Z02.89 Encounter for other administrative examinations (principal); R10.9 Unspecified abdominal pain

== ENCOUNTER 2017-05-22 13:02 | Emergency (ER) | payer MEDICARE ==
[2017-05-22 13:03] VITALS: BMI 23.0
[2017-05-22 14:01] VITALS: PULSE 100
--- NOTE | 2017-05-22 16:00 | C.PDOC ---
History Of Present Illness 57 year old male presents to the ED with abdominal pain and is currently requesting food to eat. Patient has Hx of multiple visits for same complaints. Denies fever, back pain, fever, chestpain. SOB, dysuria. Time Seen by Provider: 05/22/17 15:11 Chief Complaint (Nursing): Psychiatric Evaluation History Per: Patient History/Exam Limitations: no limitations Recent travel outside of the [place]: No Past Medical History Reviewed: Historical Data, Nursing Documentation, Vital Signs Vital Signs: Last Vital Signs Temp 98.3 F 05/22/17 16:07 Pulse 100 H 05/22/17 16:07 Resp 16 05/22/17 16:07 BP 120/76 05/22/17 16:07 Pulse Ox 99 05/22/17 16:17 - Medical History PMH: Anxiety, Asthma, Bipolar Disorder, Depression, Gastritis, Paranoia, Personality Disorder, Schizophrenia, Seizures (Pt did not report this to Undersigned.), Chronic Pain (abd) Denies: Diabetes, Hepatitis, HIV, HTN, Sexually Transmitted Disease Surgical History: - [facility] Procedures APPLICATION OF SPLINT (04/09/14) CL FX REDUC-TIBIA/FIBULA (02/26/13) GROUP PSYCHOTHERAPY (07/30/16) INDIVID PSYCHOTHERAP NEC (12/17/13) INDIVIDUAL PSYCHOTHERAPY, BEHAVIORAL (01/29/16) INDIVIDUAL PSYCHOTHERAPY, COGNITIVE-BEHAVIORAL (07/30/16) INDIVIDUAL PSYCHOTHERAPY, SUPPORTIVE (07/22/16) MEDICATION MANAGEMENT (07/22/16) OTHER GROUP THERAPY (11/05/13) PSYCHIA INTERV/EVAL NEC (06/28/14) Family History: States: No Known Family Hx - Social History Hx Tobacco Use: Yes (heavy smoker) Hx Alcohol Use: No Hx Substance Use: No - Immunization History Hx Tetanus Toxoid Vaccination: No Hx Influenza Vaccination: No Hx Pneumococcal Vaccination: No Review Of Systems Except As Marked, All Systems Reviewed And Found Negative. Cardiovascular: Negative for: Chest Pain Respiratory: Negative for: Shortness of Breath Gastrointestinal: Positive for: Abdominal Pain Psych: Negative for: Suicidal ideation Physical Exam - Physical Exam Appears: Non-toxic, No Acute Distress, Unkempt, Other (Malodorous) Skin: Warm, Dry, No Diaphoretic, No Jaundice Head: Normacephalic Eye(s): bilateral: Normal Inspection Oral Mucosa: Moist Neck: Normal ROM Chest: Symmetrical, No Tenderness Cardiovascular: Rhythm Regular, No Friction Rub, No Murmur Respiratory: Normal Breath Sounds, No Rales, No Rhonchi, No Wheezing Gastrointestinal/Abdominal: Soft, No Tenderness Back: Normal Inspection, No CVA Tenderness Extremity: Normal ROM, No Tenderness, No Swelling Neurological/Psych: Oriented x3, Normal Speech, Normal Motor Gait: Steady ED Course And Treatment O2 Sat by Pulse Oximetry: 99 (RA) Pulse Ox Interpretation: Normal Medical Decision Making Medical Decision Making: Patient requesting to be discharged home found smoking in ED bathroom. Disposition - Disposition Referrals: [facility] [Outside] Disposition: HOME/ ROUTINE Disposition Time: 15:57 Condition: GOOD Additional Instructions: Follow up with the medical doctor within 1-2 days. Return if worsened. Instructions: Bad Breath Forms: [facility] (Uruguayan) - Clinical Impression Clinical Impression: Hunger pain, Thirst, Smelly feet - Scribe Statement The provider has reviewed the documentation as recorded by the Scribe (Arabella Hemphill) All medical record entries made by the Scribe were at my direction and personally dictated by me. I have reviewed the chart and agree that the record accurately reflects my personal performance of the history, physical exam, medical decision making, and the department course for this patient. I have also personally directed, reviewed, and agree with the discharge instructions and disposition.
[2017-05-22 16:13] VITALS: BP 120/76; RESP 16; TEMP 98.3
[2017-05-22 16:17] VITALS: O2SAT 99
== END 2017-05-22 16:07 | disposition home or self-care (01) ==
LOC: C.ER 13:02
DX: R63.1 Polydipsia (principal); T73.0XXA Starvation, initial encounter; X58.XXXA Exposure to other specified factors, initial encounter

== ENCOUNTER 2017-05-22 21:18 | Emergency (ER) | payer MEDICARE ==
[2017-05-22 21:18] VITALS: BMI 23.0
--- NOTE | 2017-05-22 23:17 | C.PDOC ---
History Of Present Illness 57 year old male presents to the ED c/o auditory hallucinations that are telling him to kill himself. Patient states he does not recognize the voices, does not have a plan to hurt himself. Patient is also c/o abdominal pain that had been going on for a couple of days. Patient denies any drug or alcohol use. Patient denies HI, nausea, vomit, diarrhea, back pain. Chief Complaint (Nursing): Psychiatric Evaluation History Per: Patient History/Exam Limitations: no limitations Onset/Duration Of Symptoms: Days Current Symptoms Are (Timing): Still Present Suicide/Self Injury Attempted (Context): None Modifying Factor(s): None Severity: None Associated Symptoms: Suicidal Thoughts. denies: Depression, Suicidal Plan Recent travel outside of the [place]: No Additional History Per: Patient Past Medical History Reviewed: Historical Data, Nursing Documentation, Vital Signs Vital Signs: Last Vital Signs Temp 98.0 F 05/23/17 05:25 Pulse 81 05/23/17 05:25 Resp 18 05/23/17 05:25 BP 111/71 05/23/17 05:25 Pulse Ox 98 05/23/17 05:25 - Medical History PMH: Anxiety, Asthma, Bipolar Disorder, Depression, Gastritis, Paranoia, Personality Disorder, Schizophrenia, Seizures, Chronic Pain (abd) Denies: Diabetes, Hepatitis, HIV, HTN, Sexually Transmitted Disease Surgical History: No Surg Hx - [facility] Procedures APPLICATION OF SPLINT (04/09/14) CL FX REDUC-TIBIA/FIBULA (02/26/13) GROUP PSYCHOTHERAPY (07/30/16) INDIVID PSYCHOTHERAP NEC (12/17/13) INDIVIDUAL PSYCHOTHERAPY, BEHAVIORAL (01/29/16) INDIVIDUAL PSYCHOTHERAPY, COGNITIVE-BEHAVIORAL (07/30/16) INDIVIDUAL PSYCHOTHERAPY, SUPPORTIVE (07/22/16) MEDICATION MANAGEMENT (07/22/16) OTHER GROUP THERAPY (11/05/13) PSYCHIA INTERV/EVAL NEC (06/28/14) Family History: States: Unknown Family Hx - Social History Hx Tobacco Use: Yes (heavy smoker) Hx Alcohol Use: No Hx Substance Use: No - Immunization History Hx Tetanus Toxoid Vaccination: No Hx Influenza Vaccination: No Hx Pneumococcal Vaccination: No Review Of Systems Constitutional: Negative for: Fever, Chills Cardiovascular: Negative for: Chest Pain, Palpitations Respiratory: Negative for: Cough, Shortness of Breath Gastrointestinal: Negative for: Nausea, Vomiting, Abdominal Pain Skin: Negative for: Rash Neurological: Negative for: Weakness, Numbness Psych: Positive for: Suicidal ideation. Negative for: Depression Physical Exam - Physical Exam Appears: Non-toxic, No Acute Distress Skin: Normal Color, Warm, Dry Head: Atraumatic, Normacephalic Eye(s): bilateral: Normal Inspection Nose: No Discharge, No Deformity Oral Mucosa: Moist Neck: Normal ROM, Supple Chest: Symmetrical Cardiovascular: Rhythm Regular, No Murmur Respiratory: Normal Breath Sounds, No Rales, No Rhonchi, No Wheezing Gastrointestinal/Abdominal: Soft, No Tenderness, No Guarding, No Rebound Extremity: Normal ROM, No Tenderness, No Deformity, No Swelling Neurological/Psych: Oriented x3, Normal Speech, Normal Cognition ED Course And Treatment - Laboratory Results Result Diagrams: 05/22/17 23:45 05/22/17 23:45 O2 Sat by Pulse Oximetry: 99 (On Ra) Pulse Ox Interpretation: Normal Medical Decision Making Medical Decision Making: Impression: hallucinations Plan: * Labs * UA Disposition - Disposition Disposition: ELOPEMENT - ER ONLY Disposition Time: 05:43 Condition: FAIR Forms: [facility] (Tuvaluan) - Clinical Impression Clinical Impression: Hallucinations - Scribe Statement The provider has reviewed the documentation as recorded by the Scribe Jarod Jett All medical record entries made by the Scribe were at my direction and personally dictated by me. I have reviewed the chart and agree that the record accurately reflects my personal performance of the history, physical exam, medical decision making, and the department course for this patient. I have also personally directed, reviewed, and agree with the discharge instructions and disposition.
[2017-05-22 23:51] LABS: BASO % 0.7 % (0.0-2.0); EOS # 0.2 K/uL (0.0-0.7); EOS % 2.7 % (0.0-4.0); HEMOGLOBIN 13.9 g/dL (12.0-18.0); LYMPH # 1.6 K/uL (1.0-4.3); MEAN CELL VOLUME 90.9 fL (80.0-94.0); MEAN CORPUSCULAR HEMOGLOBIN 31.3 pg (27.0-31.0); MEAN CORPUSCULAR HGB CONC 34.4 g/dL (33.0-37.0); MEAN PLATELET VOLUME 8.6 fL (7.2-11.7); MONO # 0.4 K/uL (0.0-0.8); MONO % 5.5 % (0.0-10.0); NEUT # 4.2 K/uL (1.8-7.0); NEUT % 66.1 % (50.0-75.0); RBC 4.45 Mil/uL (4.40-5.90); RED CELL DISTRIBUTION WIDTH 13.4 % (11.5-14.5); WHITE BLOOD COUNT 6.4 K/uL (4.8-10.8)
[2017-05-23 00:02] LABS: ALB/GLOB RATIO 1.4 (1.0-2.1); ALT/SGPT 27 U/L (21-72); AST/SGOT 23 U/L (17-59); BLOOD UREA NITROGEN 12 mg/dL (9-20); CALCIUM 9.7 mg/dl (8.6-10.4); GFR AFRICAN-AMERICAN > 60; GFR NON-AFRICAN AMERICAN > 60
[2017-05-23 01:22] LABS: SQUAMOUS EPITHIAL < 1 /hpf (0-5); URINE BACTERIA RARE (<OCC); URINE BILIRUBIN NEGATIVE (NEGATIVE); URINE BLOOD NEGATIVE (NEGATIVE); URINE CLARITY Clear (Clear); URINE COLOR Straw (YELLOW); URINE GLUCOSE (UA) NORMAL (Normal); URINE LEUKOCYTE ESTERASE NEG Leu/uL (Negative); URINE NITRATE NEGATIVE (NEGATIVE); URINE PROTEIN NEGATIVE (NEGATIVE); URINE UROBILINOGEN NORMAL mg/dL (0.2-1.0)
[2017-05-23 02:05] LABS: BARBITURATES, UR NEGATIVE (NEGATIVE); BENZODIAZEPINES, UR NEGATIVE (NEGATIVE); OPIATES, UR NEGATIVE (NEGATIVE); PHENCYCLIDINE, UR NEGATIVE (NEGATIVE)
[2017-05-23 02:49] VITALS: RESP 18
[2017-05-23 05:35] VITALS: BP 111/71; PULSE 81; TEMP 98
[2017-05-23 05:43] VITALS: O2SAT 99
== END 2017-05-23 05:36 | disposition left against medical advice (07) ==
LOC: C.ER 21:18
DX: R44.3 Hallucinations, unspecified (principal); F31.9 Bipolar disorder, unspecified

== ENCOUNTER 2017-05-23 23:12 | Emergency (ER) | payer MEDICARE ==
[2017-05-23 23:14] VITALS: BMI 23.0
--- NOTE | 2017-05-23 23:33 | C.PDOC ---
History Of Present Illness 57 year old male presents to the ER with various vague complaints and multiple ER visits between [facility] and [place]. Denies fever, chills, nausea, vomiting, diarrhea, chest pain, or SOB. Time Seen by Provider: 05/23/17 23:30 Chief Complaint (Nursing): Psychiatric Evaluation History Per: Patient History/Exam Limitations: no limitations Onset/Duration Of Symptoms: Hrs Current Symptoms Are (Timing): Still Present Recent travel outside of the [place]: No Past Medical History Reviewed: Historical Data, Nursing Documentation, Vital Signs Vital Signs: Last Vital Signs Temp 98.5 F 05/23/17 23:18 Pulse 80 05/23/17 23:18 Resp 14 05/23/17 23:18 BP 120/80 05/23/17 23:18 Pulse Ox 98 05/23/17 23:33 - Medical History PMH: Anxiety, Asthma, Bipolar Disorder, Depression, Gastritis, Paranoia, Personality Disorder, Schizophrenia, Seizures, Chronic Pain (abd) Surgical History: - [facility] Procedures APPLICATION OF SPLINT (04/09/14) CL FX REDUC-TIBIA/FIBULA (02/26/13) GROUP PSYCHOTHERAPY (07/30/16) INDIVID PSYCHOTHERAP NEC (12/17/13) INDIVIDUAL PSYCHOTHERAPY, BEHAVIORAL (01/29/16) INDIVIDUAL PSYCHOTHERAPY, COGNITIVE-BEHAVIORAL (07/30/16) INDIVIDUAL PSYCHOTHERAPY, SUPPORTIVE (07/22/16) MEDICATION MANAGEMENT (07/22/16) OTHER GROUP THERAPY (11/05/13) PSYCHIA INTERV/EVAL NEC (06/28/14) Family History: States: Unknown Family Hx - Social History Hx Tobacco Use: Yes (heavy smoker) Hx Alcohol Use: No Hx Substance Use: No - Immunization History Hx Tetanus Toxoid Vaccination: No Hx Influenza Vaccination: No Hx Pneumococcal Vaccination: No Review Of Systems Constitutional: Negative for: Fever, Chills Cardiovascular: Negative for: Chest Pain, Palpitations Respiratory: Negative for: Shortness of Breath Gastrointestinal: Negative for: Nausea, Vomiting, Abdominal Pain, Diarrhea Physical Exam - Physical Exam Appears: Non-toxic, No Acute Distress, Other (Tall, thin) Skin: Normal Color, Warm, Dry Head: Atraumatic, Normacephalic Eye(s): bilateral: Normal Inspection Oral Mucosa: Moist Chest: Symmetrical, No Tenderness Cardiovascular: Rhythm Regular Respiratory: Normal Breath Sounds, No Rales, No Rhonchi, No Wheezing Gastrointestinal/Abdominal: Soft, No Tenderness Neurological/Psych: Oriented x3, Normal Speech Gait: Steady ED Course And Treatment O2 Sat by Pulse Oximetry: 98 Medical Decision Making Medical Decision Making: daily ED visits, usually between our hospital and [place] ED. No new complaints, no new physical findings malingering. Disposition Doctor Will See Patient In The: Office Counseled Patient/Family Regarding: Studies Performed, Diagnosis - Disposition Referrals: Alcoholics Anonymous [Outside] [email or web address] [Outside] [facility] [Outside] [facility] [Outside] Disposition: HOME/ ROUTINE Disposition Time: 23:32 Condition: GOOD Additional Instructions: seek nightly senior living placement or stay @ your apartment. seek outpatient psychiatry follow-up. Instructions: Schizoaffective Disorder Forms: [employer] (Spanish) - Clinical Impression Clinical Impression: Malingerer, Schizoaffective disorder - PA / HUMAN RESOURCES ADMIN / Resident Statement MD/DO has reviewed & agrees with the documentation as recorded. - Scribe Statement The provider has reviewed the documentation as recorded by the Scribe Howard Gottlieb All medical record entries made by the Scribalexis were at my direction and personally dictated by me. I have reviewed the chart and agree that the record accurately reflects my personal performance of the history, physical exam, medical decision making, and the department course for this patient. I have also personally directed, reviewed, and agree with the discharge instructions and disposition.
[2017-05-24 06:04] VITALS: BP 124/71; PULSE 85; RESP 16; TEMP 98; O2SAT 97
== END 2017-05-24 06:03 | disposition home or self-care (01) ==
LOC: C.ER 23:12
DX: F25.9 Schizoaffective disorder, unspecified (principal); Z76.5 Malingerer [conscious simulation]

== ENCOUNTER 2017-05-24 19:22 | Emergency (ER) | payer MEDICARE ==
[2017-05-24 19:22] VITALS: BMI 23.0
[2017-05-24 19:43] VITALS: BP 119/78; PULSE 107; RESP 20; TEMP 98.5; O2SAT 98
--- NOTE | 2017-05-24 20:11 | C.PDOC ---
History Of Present Illness 57 year old male presents to the ER with various vague complaints and multiple ER visits between [facility] and [place]. Denies fever, chills, nausea, vomiting, diarrhea, chest pain, or SOB. Time Seen by Provider: 05/24/17 20:10 Chief Complaint (Nursing): Psychiatric Evaluation History Per: Patient History/Exam Limitations: no limitations Current Symptoms Are (Timing): Still Present Suicide/Self Injury Attempted (Context): None Modifying Factor(s): None Associated Symptoms: denies: Depression, Suicidal Thoughts, Suicidal Plan Involuntary Hold By: None Recent travel outside of the [place]: No Past Medical History Reviewed: Historical Data, Nursing Documentation, Vital Signs Vital Signs: Last Vital Signs Temp 98.5 F 05/24/17 19:39 Pulse 107 H 05/24/17 19:39 Resp 20 05/24/17 19:39 BP 119/78 05/24/17 19:39 Pulse Ox 98 05/24/17 20:11 - Medical History PMH: Anxiety, Asthma, Bipolar Disorder, Depression, Gastritis, Paranoia, Personality Disorder, Schizophrenia, Seizures, Chronic Pain (abd) Surgical History: - [facility] Procedures APPLICATION OF SPLINT (04/09/14) CL FX REDUC-TIBIA/FIBULA (02/26/13) GROUP PSYCHOTHERAPY (07/30/16) INDIVID PSYCHOTHERAP NEC (12/17/13) INDIVIDUAL PSYCHOTHERAPY, BEHAVIORAL (01/29/16) INDIVIDUAL PSYCHOTHERAPY, COGNITIVE-BEHAVIORAL (07/30/16) INDIVIDUAL PSYCHOTHERAPY, SUPPORTIVE (07/22/16) MEDICATION MANAGEMENT (07/22/16) OTHER GROUP THERAPY (11/05/13) PSYCHIA INTERV/EVAL NEC (06/28/14) Family History: States: Unknown Family Hx - Social History Hx Tobacco Use: Yes (heavy smoker) Hx Alcohol Use: No Hx Substance Use: No - Immunization History Hx Tetanus Toxoid Vaccination: No Hx Influenza Vaccination: No Hx Pneumococcal Vaccination: No Review Of Systems Constitutional: Negative for: Fever, Chills Cardiovascular: Negative for: Chest Pain, Palpitations Respiratory: Negative for: Shortness of Breath Gastrointestinal: Negative for: Nausea, Vomiting Psych: Negative for: Depression, Suicidal ideation Physical Exam - Physical Exam Appears: Non-toxic, No Acute Distress, Other (Tall, thin) Skin: Normal Color, Warm, Dry Head: Atraumatic, Normacephalic Eye(s): bilateral: Normal Inspection Oral Mucosa: Moist Neck: Normal, Supple Chest: Symmetrical, No Tenderness Cardiovascular: Rhythm Regular Respiratory: Normal Breath Sounds, No Rales, No Rhonchi, No Wheezing Gastrointestinal/Abdominal: Soft, No Tenderness Extremity: Normal ROM (x4) Neurological/Psych: Oriented x3, Normal Speech Gait: Steady ED Course And Treatment O2 Sat by Pulse Oximetry: 98 (room air) Pulse Ox Interpretation: Normal Medical Decision Making Medical Decision Making: malingering Disposition Doctor Will See Patient In The: Office Counseled Patient/Family Regarding: Studies Performed, Diagnosis - Disposition Referrals: Alcoholics Anonymous [Outside] [facility] [Outside] [email or web address] [Outside] [facility] [Outside] [place] [email or web address] [Outside] Disposition: HOME/ ROUTINE Disposition Time: 20:10 Condition: GOOD Instructions: Schizoaffective Disorder Forms: [facility] (Andorran) - Clinical Impression Clinical Impression: Malingering, Schizoaffective disorder - Scribe Statement The provider has reviewed the documentation as recorded by the Scribe Howard Gottlieb All medical record entries made by the Scribe were at my direction and personally dictated by me. I have reviewed the chart and agree that the record accurately reflects my personal performance of the history, physical exam, medical decision making, and the department course for this patient. I have also personally directed, reviewed, and agree with the discharge instructions and disposition.
== END 2017-05-24 20:46 | disposition home or self-care (01) ==
LOC: C.ER 19:22
DX: Z76.5 Malingerer [conscious simulation] (principal); F25.9 Schizoaffective disorder, unspecified

== ENCOUNTER 2017-05-26 00:11 | Emergency (ER) | payer MEDICARE ==
[2017-05-26 00:11] VITALS: BMI 23.0
--- NOTE | 2017-05-26 01:59 | C.PDOC ---
History Of Present Illness 57 year old male presents to the ED for evaluation of auditory hallucinations. Patient has been seen in the ED for the same complaint many times. Last time patient was evaluated by myself he had similar complaint and eloped prior to crisis evaluation. Suspect malingering. Patient denies alcohol or drug abuse. He states that he his compliant with his medications but that they are not providing relief. Time Seen by Provider: 05/26/17 01:38 Chief Complaint (Nursing): Medical Clearance History Per: Patient History/Exam Limitations: no limitations Onset/Duration Of Symptoms: Unknown Current Symptoms Are (Timing): Still Present Reports Recently: Seen In ED, Treated By A Physician Additional History Per: Prior Records Past Medical History Reviewed: Historical Data, Nursing Documentation, Vital Signs Vital Signs: Last Vital Signs Temp 98.9 F 05/26/17 06:02 Pulse 99 H 05/26/17 06:02 Resp 18 05/26/17 06:02 BP 101/61 05/26/17 06:02 Pulse Ox 98 05/26/17 06:20 - Medical History PMH: Anxiety, Asthma, Bipolar Disorder, Depression, Gastritis, Paranoia, Personality Disorder, Schizophrenia, Seizures, Chronic Pain (abd) Denies: Diabetes, Hepatitis, HIV, HTN, Sexually Transmitted Disease Surgical History: - [facility] Procedures APPLICATION OF SPLINT (04/09/14) CL FX REDUC-TIBIA/FIBULA (02/26/13) GROUP PSYCHOTHERAPY (07/30/16) INDIVID PSYCHOTHERAP NEC (12/17/13) INDIVIDUAL PSYCHOTHERAPY, BEHAVIORAL (01/29/16) INDIVIDUAL PSYCHOTHERAPY, COGNITIVE-BEHAVIORAL (07/30/16) INDIVIDUAL PSYCHOTHERAPY, SUPPORTIVE (07/22/16) MEDICATION MANAGEMENT (07/22/16) OTHER GROUP THERAPY (11/05/13) PSYCHIA INTERV/EVAL NEC (06/28/14) Family History: States: Unknown Family Hx - Social History Hx Tobacco Use: Yes (heavy smoker) Hx Alcohol Use: No Hx Substance Use: No - Immunization History Hx Tetanus Toxoid Vaccination: No Hx Influenza Vaccination: No Hx Pneumococcal Vaccination: No Review Of Systems Except As Marked, All Systems Reviewed And Found Negative. Constitutional: Negative for: Fever, Chills ENT: Negative for: Ear Pain, Throat Pain Cardiovascular: Negative for: Chest Pain Respiratory: Negative for: Shortness of Breath Gastrointestinal: Negative for: Nausea, Vomiting, Abdominal Pain, Diarrhea Skin: Negative for: Rash Neurological: Negative for: Headache Psych: Positive for: Other (Auditory hallucinations ) Physical Exam - Physical Exam Appears: No Acute Distress, Unkempt Skin: Normal Color, Warm, Dry Head: Atraumatic, Normacephalic Eye(s): bilateral: Normal Inspection, PERRL, EOMI Oral Mucosa: Moist Tongue: Normal Appearing Lips: Normal Appearing Throat: Normal Neck: Normal, Normal ROM, Supple Cardiovascular: Rhythm Regular Respiratory: Normal Breath Sounds Gastrointestinal/Abdominal: Soft, No Tenderness Back: Normal Inspection Extremity: Normal ROM, No Deformity Neurological/Psych: Oriented x3, Normal Speech ED Course And Treatment O2 Sat by Pulse Oximetry: 98 Medical Decision Making Medical Decision Making: Patient requesting crisis eval. Last time I evaluated patient he eloped prior to crisis evaluation. High suspicion for malingering. Patient is here upwards of 2x per day for the past month. He does not legitimately seem interested in any psychiatric intervention. He is stable for discharge. Disposition - Disposition Referrals: [facility] [Outside] Disposition: HOME/ ROUTINE Disposition Time: 06:33 Condition: GOOD Instructions: Schizophrenia Forms: [employer] (Ukrainian) - Clinical Impression Clinical Impression: Schizophrenia, acute, Hearing voices - Scribe Statement The provider has reviewed the documentation as recorded by the Scribe The provider has reviewed the documentation as recorded by the Scribe (Pavan Pimentel) Provider Attestation: All medical record entries made by the Scribe were at my direction and personally dictated by me. I have reviewed the chart and agree that the record accurately reflects my personal performance of the history, physical exam, medical decision making, and the department course for this patient. I have also personally directed, reviewed, and agree with the discharge instructions and disposition.
[2017-05-26 06:03] VITALS: BP 101/61; PULSE 99; RESP 18; TEMP 98.9
[2017-05-26 06:20] VITALS: O2SAT 98
== END 2017-05-26 06:19 | disposition home or self-care (01) ==
LOC: C.ER 00:11
DX: F20.9 Schizophrenia, unspecified (principal)

== ENCOUNTER 2017-05-26 21:07 | Emergency (ER) | payer MEDICARE ==
[2017-05-26 21:07] VITALS: BMI 23.0
[2017-05-26 21:42] VITALS: BP 144/88; PULSE 100; RESP 20; TEMP 99; O2SAT 98
--- NOTE | 2017-05-27 01:52 | C.PDOC ---
History Of Present Illness 57 year old male presents to the ED requesting a place to sleep for the night. Patient states he has been feeling tired, restless and would like to lay his head down. Patient denies abdominal pain, suicidal/homicidal ideation, and has no physical complaints at this time. Time Seen by Provider: 05/27/17 01:32 Chief Complaint (Nursing): Medical Clearance History Per: Patient History/Exam Limitations: no limitations Onset/Duration Of Symptoms: Hrs Current Symptoms Are (Timing): Still Present Additional History Per: Patient Past Medical History Reviewed: Historical Data, Nursing Documentation, Vital Signs Vital Signs: Last Vital Signs Temp 99 F 05/26/17 21:39 Pulse 100 H 05/26/17 21:39 Resp 20 05/26/17 21:39 BP 144/88 05/26/17 21:39 Pulse Ox 98 05/27/17 05:46 - Medical History PMH: Anxiety, Asthma, Bipolar Disorder, Depression, Gastritis, Paranoia, Personality Disorder, Schizophrenia, Seizures, Chronic Pain (abd) Denies: Diabetes, Hepatitis, HIV, HTN, Sexually Transmitted Disease Surgical History: No Surg Hx - [facility] Procedures APPLICATION OF SPLINT (04/09/14) CL FX REDUC-TIBIA/FIBULA (02/26/13) GROUP PSYCHOTHERAPY (07/30/16) INDIVID PSYCHOTHERAP NEC (12/17/13) INDIVIDUAL PSYCHOTHERAPY, BEHAVIORAL (01/29/16) INDIVIDUAL PSYCHOTHERAPY, COGNITIVE-BEHAVIORAL (07/30/16) INDIVIDUAL PSYCHOTHERAPY, SUPPORTIVE (07/22/16) MEDICATION MANAGEMENT (07/22/16) OTHER GROUP THERAPY (11/05/13) PSYCHIA INTERV/EVAL NEC (06/28/14) Family History: States: Unknown Family Hx - Social History Hx Tobacco Use: Yes (heavy smoker) Hx Alcohol Use: No Hx Substance Use: No - Immunization History Hx Tetanus Toxoid Vaccination: No Hx Influenza Vaccination: No Hx Pneumococcal Vaccination: No Review Of Systems Gastrointestinal: Negative for: Abdominal Pain Psych: Negative for: Suicidal ideation Physical Exam - Physical Exam Appears: Non-toxic, No Acute Distress Skin: Normal Color, Warm, Dry Head: Atraumatic, Normacephalic Eye(s): bilateral: Normal Inspection Oral Mucosa: Moist Neck: Supple Chest: Symmetrical, No Deformity, No Tenderness Cardiovascular: Rhythm Regular, No Murmur Respiratory: Normal Breath Sounds, No Rales, No Rhonchi, No Wheezing Gastrointestinal/Abdominal: Soft, No Tenderness Extremity: Normal ROM, Capillary Refill (less than 2 seconds ) Neurological/Psych: Normal Speech, Normal Cognition Gait: Steady ED Course And Treatment O2 Sat by Pulse Oximetry: 98 (on RA) Pulse Ox Interpretation: Normal Disposition Counseled Patient/Family Regarding: Diagnosis, Need For Followup - Disposition Referrals: Non [facility] Provider, [Primary Care Provider] - Disposition: HOME/ ROUTINE Disposition Time: 01:49 Condition: STABLE Additional Instructions: Follow up in clinic Return to ER if any concerns Forms: [employer] (Japanese), General Discharge Instructions - Clinical Impression Clinical Impression: Tired - PA / APPLIED PSYCHOLOGY CHAIR / Resident Statement MD/DO has reviewed & agrees with the documentation as recorded. - Scribe Statement The provider has reviewed the documentation as recorded by the Scribe (Rosi Chow) All medical record entries made by the Scribe were at my direction and personally dictated by me. I have reviewed the chart and agree that the record accurately reflects my personal performance of the history, physical exam, medical decision making, and the department course for this patient. I have also personally directed, reviewed, and agree with the discharge instructions and disposition.
== END 2017-05-27 02:17 | disposition home or self-care (01) ==
LOC: SUPCPDRO 21:07 → C.ER 21:07
DX: R53.83 Other fatigue (principal)

== ENCOUNTER 2017-05-29 | Emergency (ER) | payer MEDICARE ==
[2017-05-29] VITALS: BMI 23.0
[2017-05-29 00:08] VITALS: O2SAT 98
--- NOTE | 2017-05-29 00:21 | C.PDOC ---
History Of Present Illness The patient presents to the ED requesting a place to stay for the night. Patient is familiar to this ED and has had many prior visits with the same request. Patient denies fever, chills, suicidal/homicidal ideation, hallucinations, abdominal pain, and has no physical complaints at this time. Time Seen by Provider: 05/29/17 00:20 Chief Complaint (Nursing): Medical Clearance History Per: Patient History/Exam Limitations: no limitations Onset/Duration Of Symptoms: Hrs Current Symptoms Are (Timing): Still Present Severity: None Pain Scale Rating Of: 0 Recent travel outside of the [place]: No Additional History Per: Patient Past Medical History Reviewed: Historical Data, Nursing Documentation, Vital Signs Vital Signs: Last Vital Signs Temp 98.3 F 05/29/17 00:04 Pulse 114 H 05/29/17 00:04 Resp 22 05/29/17 00:04 BP 119/87 05/29/17 00:04 Pulse Ox 98 05/29/17 02:28 - Medical History PMH: Anxiety, Asthma, Bipolar Disorder, Depression, Gastritis, Paranoia, Personality Disorder, Schizophrenia, Seizures, Chronic Pain (abd) Denies: Diabetes, Hepatitis, HIV, HTN, Sexually Transmitted Disease Surgical History: No Surg Hx - [facility] Procedures APPLICATION OF SPLINT (04/09/14) CL FX REDUC-TIBIA/FIBULA (02/26/13) GROUP PSYCHOTHERAPY (07/30/16) INDIVID PSYCHOTHERAP NEC (12/17/13) INDIVIDUAL PSYCHOTHERAPY, BEHAVIORAL (01/29/16) INDIVIDUAL PSYCHOTHERAPY, COGNITIVE-BEHAVIORAL (07/30/16) INDIVIDUAL PSYCHOTHERAPY, SUPPORTIVE (07/22/16) MEDICATION MANAGEMENT (07/22/16) OTHER GROUP THERAPY (11/05/13) PSYCHIA INTERV/EVAL NEC (06/28/14) Family History: States: Unknown Family Hx - Social History Hx Tobacco Use: Yes (heavy smoker) Hx Alcohol Use: No Hx Substance Use: No - Immunization History Hx Tetanus Toxoid Vaccination: No Hx Influenza Vaccination: No Hx Pneumococcal Vaccination: No Review Of Systems Constitutional: Negative for: Fever, Chills Cardiovascular: Negative for: Chest Pain, Palpitations Respiratory: Negative for: Cough, Shortness of Breath Gastrointestinal: Negative for: Nausea, Vomiting, Abdominal Pain, Diarrhea Skin: Negative for: Rash, Lesions, Jaundice, Bruising Psych: Negative for: Suicidal ideation Physical Exam - Physical Exam Appears: Non-toxic, No Acute Distress Skin: Warm, Dry Head: Normacephalic Eye(s): bilateral: Normal Inspection Oral Mucosa: Moist Neck: Supple Chest: Symmetrical, No Deformity, No Tenderness Cardiovascular: Rhythm Regular, No Murmur Respiratory: No Rales, No Rhonchi, No Wheezing Gastrointestinal/Abdominal: Soft, No Tenderness, No Guarding, No Rebound Extremity: Normal ROM, Capillary Refill (less than 2 seconds ) Neurological/Psych: Oriented x3 Gait: Steady ED Course And Treatment O2 Sat by Pulse Oximetry: 98 (on RA) Pulse Ox Interpretation: Normal Reevaluation Time: 04:38 Reassessment Condition: Improved Disposition Counseled Patient/Family Regarding: Studies Performed, Diagnosis, Need For Followup - Disposition Disposition: HOME/ ROUTINE Disposition Time: 00:21 Condition: FAIR Instructions: Schizophrenia (DC) Forms: [employer] (Kiswahili) - Clinical Impression Clinical Impression: Schizophrenia, chronic condition - Scribe Statement The provider has reviewed the documentation as recorded by the Scribe (Rosi Chow) Provider Attestation: All medical record entries made by the Scribe were at my direction and personally dictated by me. I have reviewed the chart and agree that the record accurately reflects my personal performance of the history, physical exam, medical decision making, and the department course for this patient. I have also personally directed, reviewed, and agree with the discharge instructions and disposition.
[2017-05-29 04:44] VITALS: BP 145/90; PULSE 88; RESP 20; TEMP 97.8
== END 2017-05-29 04:43 | disposition home or self-care (01) ==
LOC: C.ER
DX: F20.9 Schizophrenia, unspecified (principal)

== ENCOUNTER 2017-05-29 15:05 | Emergency (ER) | payer MEDICARE ==
[2017-05-29 15:06] VITALS: BMI 23.0
[2017-05-29 15:50] VITALS: BP 126/72; PULSE 79; RESP 18; TEMP 97.2; O2SAT 97
== END 2017-05-29 15:48 | disposition left against medical advice (07) ==
LOC: C.ER 15:05
DX: Z02.89 Encounter for other administrative examinations (principal); R69 Illness, unspecified

== ENCOUNTER 2017-05-30 15:48 | Emergency (ER) | payer MEDICARE ==
[2017-05-30 15:48] VITALS: BMI 23.0
[2017-05-30 16:50] VITALS: BP 128/84; PULSE 94; RESP 20; TEMP 98.5; O2SAT 98
== END 2017-05-30 16:50 | disposition left against medical advice (07) ==
LOC: C.ER 15:48
DX: Z02.89 Encounter for other administrative examinations (principal); F19.10 Other psychoactive substance abuse, uncomplicated

== ENCOUNTER 2017-05-30 23:35 | Emergency (ER) | payer MEDICARE ==
[2017-05-30 23:36] VITALS: BMI 23.0
[2017-05-31 00:31] VITALS: RESP 20
--- NOTE | 2017-05-31 00:33 | C.PDOC ---
History Of Present Illness Pt requests a place to sleep.. He denies SI or HI. No other acute complaints at this time. Time Seen by Provider: 05/31/17 00:32 Chief Complaint (Nursing): Psychiatric Evaluation History Per: Patient History/Exam Limitations: other Onset/Duration Of Symptoms: Unknown Current Symptoms Are (Timing): Still Present Suicide/Self Injury Attempted (Context): None Modifying Factor(s): None Severity: None Associated Symptoms: denies: Suicidal Thoughts Involuntary Hold By: None Recent travel outside of the [place]: No Additional History Per: Patient Past Medical History Reviewed: Historical Data, Nursing Documentation, Vital Signs Vital Signs: Last Vital Signs Temp 98.1 F 05/31/17 00:27 Pulse 74 05/31/17 00:27 Resp 20 05/31/17 00:27 BP 110/71 05/31/17 00:27 Pulse Ox 98 05/31/17 00:49 - Medical History PMH: Anxiety, Asthma, Bipolar Disorder, Depression, Gastritis, Paranoia, Personality Disorder, Schizophrenia, Seizures, Chronic Pain (abd) Denies: Diabetes, Hepatitis, HIV, HTN, Sexually Transmitted Disease Surgical History: - [facility] Procedures APPLICATION OF SPLINT (04/09/14) CL FX REDUC-TIBIA/FIBULA (02/26/13) GROUP PSYCHOTHERAPY (07/30/16) INDIVID PSYCHOTHERAP NEC (12/17/13) INDIVIDUAL PSYCHOTHERAPY, BEHAVIORAL (01/29/16) INDIVIDUAL PSYCHOTHERAPY, COGNITIVE-BEHAVIORAL (07/30/16) INDIVIDUAL PSYCHOTHERAPY, SUPPORTIVE (07/22/16) MEDICATION MANAGEMENT (07/22/16) OTHER GROUP THERAPY (11/05/13) PSYCHIA INTERV/EVAL NEC (06/28/14) Family History: States: Unknown Family Hx - Social History Hx Tobacco Use: Yes (heavy smoker) Hx Alcohol Use: No Hx Substance Use: No - Immunization History Hx Tetanus Toxoid Vaccination: No Hx Influenza Vaccination: No Hx Pneumococcal Vaccination: No Review Of Systems Constitutional: Negative for: Fever, Chills ENT: Negative for: Ear Pain, Throat Pain Cardiovascular: Negative for: Chest Pain Respiratory: Negative for: Cough, Shortness of Breath Gastrointestinal: Negative for: Nausea, Vomiting, Abdominal Pain, Diarrhea Skin: Negative for: Rash Neurological: Negative for: Headache Psych: Positive for: Other (Auditory hallucinations, Alcohol intoxication). Negative for: Suicidal ideation Physical Exam - Physical Exam Appears: Non-toxic, No Acute Distress Skin: Warm, Dry Head: Normacephalic Eye(s): bilateral: Normal Inspection Oral Mucosa: Moist, Other (Alcohol on breath) Neck: Trachea Midline, Supple Chest: Symmetrical Cardiovascular: Rhythm Regular (Rate Regular) Respiratory: No Rales, No Rhonchi, No Wheezing Gastrointestinal/Abdominal: Soft, No Tenderness Back: Normal Inspection Extremity: Normal ROM, Other (DP pulses 2+) Extremity: Bilateral: Atraumatic Neurological/Psych: Other (Sleeping but arousable to verbal stimuli) ED Course And Treatment O2 Sat by Pulse Oximetry: 98 Pulse Ox Interpretation: Normal Reevaluation Time: 05:09 Reassessment Condition: Improved Disposition Counseled Patient/Family Regarding: Diagnosis, Need For Followup - Disposition Referrals: [facility] [Outside] Disposition: HOME/ ROUTINE Disposition Time: 00:32 Condition: FAIR Instructions: Schizophrenia (DC) Forms: [facility] ([place]i) - Clinical Impression Clinical Impression: Schizophrenia - Scribe Statement The provider has reviewed the documentation as recorded by the Madhavibe Pavan Pimentel Provider Attestation: All medical record entries made by the Scribe were at my direction and personally dictated by me. I have reviewed the chart and agree that the record accurately reflects my personal performance of the history, physical exam, medical decision making, and the department course for this patient. I have also personally directed, reviewed, and agree with the discharge instructions and disposition.
[2017-05-31 06:39] VITALS: BP 128/72; PULSE 76; TEMP 98; O2SAT 97
== END 2017-05-31 06:37 | disposition home or self-care (01) ==
LOC: C.ER 23:35
DX: F20.9 Schizophrenia, unspecified (principal); F17.210 Nicotine dependence, cigarettes, uncomplicated

== ENCOUNTER 2017-05-31 19:53 | Emergency (ER) | payer MEDICARE ==
[2017-05-31 19:54] VITALS: BMI 23.0
== END 2017-05-31 22:30 | disposition left against medical advice (07) ==
LOC: C.ER 19:53
DX: Z02.89 Encounter for other administrative examinations (principal); F19.10 Other psychoactive substance abuse, uncomplicated

== ENCOUNTER 2017-06-04 22:36 | Emergency (ER) | payer MEDICARE ==
[2017-06-04 22:36] VITALS: BMI 23.0
[2017-06-04 23:03] VITALS: BP 134/89; PULSE 100; RESP 20; TEMP 97.9; O2SAT 100
--- NOTE | 2017-06-04 23:34 | C.PDOC ---
History Of Present Illness 57 year old male presents to the ER with various vague complaints and multiple ER visits between [facility] and [place]. Denies fever, chills, nausea, vomiting, diarrhea, chest pain, or SOB. Time Seen by Provider: 06/04/17 23:22 Chief Complaint (Nursing): Psychiatric Evaluation History Per: Patient History/Exam Limitations: no limitations Past Medical History Reviewed: Historical Data, Nursing Documentation, Vital Signs Vital Signs: Last Vital Signs Temp 97.9 F 06/04/17 22:59 Pulse 100 H 06/04/17 22:59 Resp 20 06/04/17 22:59 BP 134/89 06/04/17 22:59 Pulse Ox 100 06/05/17 00:03 - Medical History PMH: Anxiety, Asthma, Bipolar Disorder, Depression, Gastritis, Paranoia, Personality Disorder, Schizophrenia, Seizures, Chronic Pain (abd) Denies: Diabetes, Hepatitis, HIV, HTN, Sexually Transmitted Disease Surgical History: - [facility] Procedures APPLICATION OF SPLINT (04/09/14) CL FX REDUC-TIBIA/FIBULA (02/26/13) GROUP PSYCHOTHERAPY (07/30/16) INDIVID PSYCHOTHERAP NEC (12/17/13) INDIVIDUAL PSYCHOTHERAPY, BEHAVIORAL (01/29/16) INDIVIDUAL PSYCHOTHERAPY, COGNITIVE-BEHAVIORAL (07/30/16) INDIVIDUAL PSYCHOTHERAPY, SUPPORTIVE (07/22/16) MEDICATION MANAGEMENT (07/22/16) OTHER GROUP THERAPY (11/05/13) PSYCHIA INTERV/EVAL NEC (06/28/14) Family History: States: Unknown Family Hx - Social History Hx Tobacco Use: Yes (heavy smoker) Hx Alcohol Use: No Hx Substance Use: No - Immunization History Hx Tetanus Toxoid Vaccination: No Hx Influenza Vaccination: No Hx Pneumococcal Vaccination: No Review Of Systems Constitutional: Negative for: Fever, Chills Cardiovascular: Negative for: Chest Pain Respiratory: Negative for: Shortness of Breath Gastrointestinal: Negative for: Abdominal Pain Physical Exam - Physical Exam Appears: No Acute Distress Skin: Normal Color Head: Normacephalic Eye(s): bilateral: Normal Inspection Neck: Supple Cardiovascular: Rhythm Regular Respiratory: Normal Breath Sounds Extremity: Normal ROM Neurological/Psych: Oriented x3 ED Course And Treatment O2 Sat by Pulse Oximetry: 100 (RA) Pulse Ox Interpretation: Normal Medical Decision Making Medical Decision Making: Patient malingering. Disposition Doctor Will See Patient In The: Office Counseled Patient/Family Regarding: Studies Performed, Diagnosis - Disposition Disposition: HOME/ ROUTINE Disposition Time: 00:00 Condition: GOOD Forms: [facility] ([place] Islander) - Clinical Impression Clinical Impression: Malingering - Scribe Statement The provider has reviewed the documentation as recorded by the Scribe (Cleo Azul) Provider Attestation: All medical record entries made by the Scribe were at my direction and personally dictated by me. I have reviewed the chart and agree that the record accurately reflects my personal performance of the history, physical exam, medical decision making, and the department course for this patient. I have also personally directed, reviewed, and agree with the discharge instructions and disposition.
== END 2017-06-04 23:35 | disposition home or self-care (01) ==
LOC: C.ER 22:36
DX: Z76.5 Malingerer [conscious simulation] (principal)

== ENCOUNTER 2017-06-05 23:24 | Emergency (ER) | payer MEDICARE ==
[2017-06-05 23:27] VITALS: BMI 23.0
--- NOTE | 2017-06-05 23:32 | C.PDOC ---
History Of Present Illness 57 y/o male presents to ED with complaints of "hearing voices." Patient is always visiting for same complaint. Denies SI, HI or any physical complaints. Time Seen by Provider: 06/05/17 23:30 History Per: Patient History/Exam Limitations: no limitations Onset/Duration Of Symptoms: Hrs Current Symptoms Are (Timing): Still Present Recent travel outside of the [place]: No Past Medical History Reviewed: Historical Data, Nursing Documentation, Vital Signs Vital Signs: Last Vital Signs Temp 98.7 F 06/05/17 23:35 Pulse 82 06/05/17 23:35 Resp 18 06/05/17 23:35 BP 121/79 06/05/17 23:35 Pulse Ox 99 06/05/17 23:35 - Medical History PMH: Anxiety, Asthma, Bipolar Disorder, Depression, Gastritis, Paranoia, Personality Disorder, Schizophrenia, Seizures, Chronic Pain (abd) Surgical History: - [facility] Procedures APPLICATION OF SPLINT (04/09/14) CL FX REDUC-TIBIA/FIBULA (02/26/13) GROUP PSYCHOTHERAPY (06/01/17) INDIVID PSYCHOTHERAP NEC (12/17/13) INDIVIDUAL PSYCHOTHERAPY, BEHAVIORAL (01/29/16) INDIVIDUAL PSYCHOTHERAPY, COGNITIVE-BEHAVIORAL (07/30/16) INDIVIDUAL PSYCHOTHERAPY, SUPPORTIVE (06/01/17) MEDICATION MANAGEMENT (07/22/16) OTHER GROUP THERAPY (11/05/13) PSYCHIA INTERV/EVAL NEC (06/28/14) Family History: States: Unknown Family Hx - Social History Hx Tobacco Use: Yes (heavy smoker) Hx Alcohol Use: No Hx Substance Use: No - Immunization History Hx Tetanus Toxoid Vaccination: No Hx Influenza Vaccination: No Hx Pneumococcal Vaccination: No Review Of Systems Constitutional: Positive for: Other (Hears voices). Negative for: Fever, Chills Cardiovascular: Negative for: Chest Pain, Palpitations Gastrointestinal: Negative for: Nausea, Vomiting, Abdominal Pain, Diarrhea Neurological: Negative for: Weakness, Numbness Psych: Negative for: Suicidal ideation Physical Exam - Physical Exam Appears: Well, Non-toxic, No Acute Distress Skin: Normal Color, Warm, Dry Head: Atraumatic, Normacephalic Eye(s): bilateral: Normal Inspection Oral Mucosa: Moist Neck: Supple Chest: Symmetrical, No Tenderness Cardiovascular: Rhythm Regular Respiratory: Normal Breath Sounds, No Decreased Breath Sounds, No Rales, No Rhonchi, No Wheezing Gastrointestinal/Abdominal: Soft, No Tenderness, No Distention, No Guarding, No Rebound Neurological/Psych: Oriented x3, Normal Speech, Normal Cognition Medical Decision Making Medical Decision Making: no acute issues typical malingering [place] [facility] Disposition Doctor Will See Patient In The: Office Counseled Patient/Family Regarding: Studies Performed, Diagnosis - Disposition Referrals: [facility] [Outside] [facility] [Outside] [place] [facility] [Outside] Disposition: HOME/ ROUTINE Disposition Time: 23:32 Condition: GOOD Additional Instructions: seek nightly halfway placement Seek continued care for your psychiatric illness @ the [facility] ( close to the hospital) Instructions: Schizoaffective Disorder - Clinical Impression Clinical Impression: Schizoaffective disorder, Malingerer - Scribe Statement The provider has reviewed the documentation as recorded by the Scribalexis Hernández All medical record entries made by the Scribe were at my direction and personally dictated by me. I have reviewed the chart and agree that the record accurately reflects my personal performance of the history, physical exam, medical decision making, and the department course for this patient. I have also personally directed, reviewed, and agree with the discharge instructions and disposition.
[2017-06-05 23:38] VITALS: BP 121/79; PULSE 82; RESP 18; TEMP 98.7; O2SAT 99
== END 2017-06-05 23:53 | disposition home or self-care (01) ==
LOC: SUPCPDRO 23:24 → C.ER 23:24
DX: F25.9 Schizoaffective disorder, unspecified (principal); Z76.5 Malingerer [conscious simulation]

== ENCOUNTER 2017-06-07 07:07 | Emergency (ER) | payer MEDICARE ==
[2017-06-07 07:08] VITALS: BMI 23.0
[2017-06-07 07:34] VITALS: BP 131/83; PULSE 108; RESP 18; TEMP 98.8; O2SAT 99
--- NOTE | 2017-06-07 08:24 | C.PDOC ---
History Of Present Illness 57-year-old Time Seen by Provider: 06/07/17 08:05 Chief Complaint (Nursing): Abdominal Pain Past Medical History Vital Signs: Last Vital Signs Temp 98.8 F 06/07/17 07:25 Pulse 108 H 06/07/17 07:25 Resp 18 06/07/17 07:25 BP 131/83 06/07/17 07:25 Pulse Ox 99 06/07/17 07:25 - Medical History PMH: Anxiety, Asthma, Bipolar Disorder, Depression, Gastritis, Paranoia, Personality Disorder, Schizophrenia, Seizures, Chronic Pain (abd) Denies: Diabetes, Hepatitis, HIV, HTN, Sexually Transmitted Disease Surgical History: - [facility] Procedures APPLICATION OF SPLINT (04/09/14) CL FX REDUC-TIBIA/FIBULA (02/26/13) GROUP PSYCHOTHERAPY (06/01/17) INDIVID PSYCHOTHERAP NEC (12/17/13) INDIVIDUAL PSYCHOTHERAPY, BEHAVIORAL (01/29/16) INDIVIDUAL PSYCHOTHERAPY, COGNITIVE-BEHAVIORAL (07/30/16) INDIVIDUAL PSYCHOTHERAPY, SUPPORTIVE (06/01/17) MEDICATION MANAGEMENT (07/22/16) OTHER GROUP THERAPY (11/05/13) PSYCHIA INTERV/EVAL NEC (06/28/14) Family History: States: Unknown Family Hx - Social History Hx Tobacco Use: Yes (heavy smoker) Hx Alcohol Use: No Hx Substance Use: No - Immunization History Hx Tetanus Toxoid Vaccination: No Hx Influenza Vaccination: No Hx Pneumococcal Vaccination: No ED Course And Treatment O2 Sat by Pulse Oximetry: 99 Disposition - Disposition
--- NOTE | 2017-06-07 08:43 | C.PDOC ---
History Of Present Illness 57-year-old male, PMHx includes Gastritis, Paranoia, Personality Disorder, Schizophrenia, Seizures, and Chronic Pain, presents to the emergency department with complaints of auditory hallucinations. Patient has a Hx of multiple visits in ED for same complaint. Time Seen by Provider: 06/07/17 08:05 Chief Complaint (Nursing): Abdominal Pain History Per: Patient History/Exam Limitations: no limitations Onset/Duration Of Symptoms: Days Current Symptoms Are (Timing): Still Present Past Medical History Reviewed: Historical Data, Nursing Documentation, Vital Signs Vital Signs: Last Vital Signs Temp 98.8 F 06/07/17 07:25 Pulse 108 H 06/07/17 07:25 Resp 18 06/07/17 07:25 BP 131/83 06/07/17 07:25 Pulse Ox 99 06/07/17 08:51 - Medical History PMH: Anxiety, Asthma, Bipolar Disorder, Depression, Gastritis, Paranoia, Personality Disorder, Schizophrenia, Seizures, Chronic Pain (abd) Denies: Diabetes, Hepatitis, HIV, HTN, Sexually Transmitted Disease Surgical History: - [facility] Procedures APPLICATION OF SPLINT (04/09/14) CL FX REDUC-TIBIA/FIBULA (02/26/13) GROUP PSYCHOTHERAPY (06/01/17) INDIVID PSYCHOTHERAP NEC (12/17/13) INDIVIDUAL PSYCHOTHERAPY, BEHAVIORAL (01/29/16) INDIVIDUAL PSYCHOTHERAPY, COGNITIVE-BEHAVIORAL (07/30/16) INDIVIDUAL PSYCHOTHERAPY, SUPPORTIVE (06/01/17) MEDICATION MANAGEMENT (07/22/16) OTHER GROUP THERAPY (11/05/13) PSYCHIA INTERV/EVAL NEC (06/28/14) Family History: States: No Known Family Hx - Social History Hx Tobacco Use: Yes (heavy smoker) Hx Alcohol Use: No Hx Substance Use: No - Immunization History Hx Tetanus Toxoid Vaccination: No Hx Influenza Vaccination: No Hx Pneumococcal Vaccination: No Review Of Systems Except As Marked, All Systems Reviewed And Found Negative. Constitutional: Negative for: Fever, Chills Cardiovascular: Negative for: Chest Pain Gastrointestinal: Negative for: Nausea, Vomiting Musculoskeletal: Negative for: Back Pain Skin: Negative for: Rash Neurological: Negative for: Weakness, Numbness, Headache, Dizziness Physical Exam - Physical Exam Appears: Well, Non-toxic, No Acute Distress Skin: Normal Color, Warm, Dry, No Diaphoretic, No Rash, No Jaundice Head: Normacephalic Eye(s): bilateral: PERRL Nose: Normal Oral Mucosa: Moist Neck: Normal ROM Extremity: Normal ROM, Capillary Refill (<2 seconds), No Deformity, No Swelling Neurological/Psych: Oriented x3, Normal Speech ED Course And Treatment O2 Sat by Pulse Oximetry: 99 (RA) Pulse Ox Interpretation: Normal Progress - Data Reviewed Data Reviewed: Old records Disposition Counseled Patient/Family Regarding: Diagnosis, Need For Followup - Disposition Referrals: [facility] [Outside] [facility] [Outside] Disposition: HOME/ ROUTINE Disposition Time: 08:44 Condition: GOOD Forms: [facility] (Chinese), General Discharge Instructions - Clinical Impression Clinical Impression: Auditory hallucination, Malingerer - Scribe Statement The provider has reviewed the documentation as recorded by the Scribe (Nicho Hemphill) All medical record entries made by the Scribe were at my direction and personally dictated by me. I have reviewed the chart and agree that the record accurately reflects my personal performance of the history, physical exam, medical decision making, and the department course for this patient. I have also personally directed, reviewed, and agree with the discharge instructions and disposition.
== END 2017-06-07 08:50 | disposition home or self-care (01) ==
LOC: C.ER 07:07
DX: R44.0 Auditory hallucinations (principal); Z76.5 Malingerer [conscious simulation]

== ENCOUNTER 2017-06-07 22:01 | Emergency (ER) | payer MEDICARE ==
[2017-06-07 22:01] VITALS: BMI 23.0
--- NOTE | 2017-06-07 22:30 | C.PDOC ---
History Of Present Illness Pt wants a place to sleep the night. Denies any suicidal or homicidal ideation. No f/c/n/v. Time Seen by Provider: 06/07/17 22:27 Chief Complaint (Nursing): Medical Clearance History Per: Patient History/Exam Limitations: no limitations Onset/Duration Of Symptoms: Days Current Symptoms Are (Timing): Still Present Severity: None Past Medical History Reviewed: Historical Data, Nursing Documentation, Vital Signs Vital Signs: Last Vital Signs Temp 98.0 F 06/08/17 02:37 Pulse 86 06/08/17 02:37 Resp 16 06/08/17 02:37 BP 100/67 06/08/17 02:37 Pulse Ox 98 06/08/17 02:37 - Medical History PMH: Anxiety, Asthma, Bipolar Disorder, Depression, Gastritis, Paranoia, Personality Disorder, Schizophrenia, Seizures, Chronic Pain (abd) Denies: Diabetes, Hepatitis, HIV, HTN, Sexually Transmitted Disease Surgical History: - [facility] Procedures APPLICATION OF SPLINT (04/09/14) CL FX REDUC-TIBIA/FIBULA (02/26/13) GROUP PSYCHOTHERAPY (06/01/17) INDIVID PSYCHOTHERAP NEC (12/17/13) INDIVIDUAL PSYCHOTHERAPY, BEHAVIORAL (01/29/16) INDIVIDUAL PSYCHOTHERAPY, COGNITIVE-BEHAVIORAL (07/30/16) INDIVIDUAL PSYCHOTHERAPY, SUPPORTIVE (06/01/17) MEDICATION MANAGEMENT (07/22/16) OTHER GROUP THERAPY (11/05/13) PSYCHIA INTERV/EVAL NEC (06/28/14) Family History: States: No Known Family Hx - Social History Hx Tobacco Use: Yes (heavy smoker) Hx Alcohol Use: No Hx Substance Use: No - Immunization History Hx Tetanus Toxoid Vaccination: No Hx Influenza Vaccination: No Hx Pneumococcal Vaccination: No Review Of Systems Constitutional: Negative for: Fever, Chills Cardiovascular: Negative for: Chest Pain Respiratory: Negative for: Shortness of Breath Gastrointestinal: Negative for: Abdominal Pain Musculoskeletal: Negative for: Back Pain Skin: Negative for: Rash Neurological: Negative for: Weakness Psych: Negative for: Suicidal ideation Physical Exam - Physical Exam Appears: Non-toxic, No Acute Distress Skin: Warm, Dry Head: Normacephalic Chest: Symmetrical Cardiovascular: Rhythm Regular Respiratory: No Rales, No Rhonchi Gastrointestinal/Abdominal: Soft, No Tenderness Extremity: Normal ROM Extremity: Bilateral: Atraumatic Neurological/Psych: Oriented x3 Gait: Steady ED Course And Treatment O2 Sat by Pulse Oximetry: 97 Pulse Ox Interpretation: Normal Reevaluation Time: 05:16 Reassessment Condition: Improved Disposition Counseled Patient/Family Regarding: Studies Performed, Diagnosis, Need For Followup - Disposition Referrals: [facility] [Outside] Disposition: HOME/ ROUTINE Disposition Time: 22:27 Condition: FAIR Instructions: Schizophrenia (DC) Forms: [employer] ([place]) - Clinical Impression Clinical Impression: Schizophrenia
[2017-06-08 05:28] VITALS: BP 115/74; PULSE 90; RESP 18; TEMP 99.2; O2SAT 99
== END 2017-06-08 05:53 | disposition home or self-care (01) ==
LOC: SUPCPDRO 22:01 → C.ER 22:01
DX: F20.9 Schizophrenia, unspecified (principal)

== ENCOUNTER 2017-06-08 16:59 | Emergency (ER) | payer MEDICARE ==
[2017-06-08 16:59] VITALS: BMI 23.0
[2017-06-08 17:26] VITALS: BP 118/81; PULSE 105; RESP 20; TEMP 98.5
== END 2017-06-08 17:22 | disposition left against medical advice (07) ==
LOC: C.ER 16:59
DX: Z02.89 Encounter for other administrative examinations (principal); R44.0 Auditory hallucinations

== ENCOUNTER 2017-06-08 19:55 | Emergency (ER) | payer MEDICARE ==
[2017-06-08 19:55] VITALS: BMI 23.0
--- NOTE | 2017-06-08 20:17 | C.PDOC ---
History Of Present Illness 57 y/o male presents to the ER complaining that he is hearing voices. Patient does not have any other complaints. Of note, patient has history of schizophrenia. Time Seen by Provider: 06/08/17 20:15 History Per: Patient History/Exam Limitations: no limitations Onset/Duration Of Symptoms: Hrs Current Symptoms Are (Timing): Still Present Severity: Moderate Past Medical History Reviewed: Historical Data, Nursing Documentation, Vital Signs Vital Signs: Last Vital Signs Temp 98.8 F 06/08/17 20:18 Pulse 97 H 06/08/17 20:18 Resp 20 06/08/17 20:18 BP 107/71 06/08/17 20:18 Pulse Ox 96 06/08/17 20:18 - Medical History PMH: Anxiety, Asthma, Bipolar Disorder, Depression, Gastritis, Paranoia, Personality Disorder, Schizophrenia, Seizures, Chronic Pain (abd) Denies: Diabetes, Hepatitis, HIV, HTN, Sexually Transmitted Disease Surgical History: No Surg Hx - [facility] Procedures APPLICATION OF SPLINT (04/09/14) CL FX REDUC-TIBIA/FIBULA (02/26/13) GROUP PSYCHOTHERAPY (06/01/17) INDIVID PSYCHOTHERAP NEC (12/17/13) INDIVIDUAL PSYCHOTHERAPY, BEHAVIORAL (01/29/16) INDIVIDUAL PSYCHOTHERAPY, COGNITIVE-BEHAVIORAL (07/30/16) INDIVIDUAL PSYCHOTHERAPY, SUPPORTIVE (06/01/17) MEDICATION MANAGEMENT (07/22/16) OTHER GROUP THERAPY (11/05/13) PSYCHIA INTERV/EVAL NEC (06/28/14) Family History: States: No Known Family Hx - Social History Hx Tobacco Use: Yes (heavy smoker) Hx Alcohol Use: No Hx Substance Use: No - Immunization History Hx Tetanus Toxoid Vaccination: No Hx Influenza Vaccination: No Hx Pneumococcal Vaccination: No Review Of Systems Except As Marked, All Systems Reviewed And Found Negative. Physical Exam - Physical Exam Appears: No Acute Distress Skin: Normal Color, Warm Head: Atraumatic, Normacephalic Eye(s): bilateral: Normal Inspection Nose: Normal Oral Mucosa: Moist Neck: Supple Chest: Symmetrical Cardiovascular: Rhythm Regular Respiratory: Normal Breath Sounds, No Accessory Muscle Use, No Rales, No Rhonchi , No Wheezing Extremity: Normal ROM Neurological/Psych: Oriented x3, Normal Speech, Normal Motor, Normal Sensation Medical Decision Making Medical Decision Making: chronic schizoid, malingerer no acute issues today immediate d/c Disposition Doctor Will See Patient In The: Office Counseled Patient/Family Regarding: Studies Performed, Diagnosis - Disposition Referrals: [facility] [Outside] [facility] [Outside] Disposition: HOME/ ROUTINE Disposition Time: 20:16 Condition: GOOD Additional Instructions: seek nightly nursing home placement. Instructions: Schizoaffective Disorder Forms: [facility] (Haitian) - Clinical Impression Clinical Impression: Schizoaffective disorder, Malingerer - Scribe Statement The provider has reviewed the documentation as recorded by the Leonard Walsh Provider Attestation: All medical record entries made by the Leonard were at my direction and personally dictated by me. I have reviewed the chart and agree that the record accurately reflects my personal performance of the history, physical exam, medical decision making, and the department course for this patient. I have also personally directed, reviewed, and agree with the discharge instructions and disposition.
[2017-06-08 20:23] VITALS: BP 107/71; PULSE 97; RESP 20; TEMP 98.8; O2SAT 96
== END 2017-06-08 21:01 | disposition home or self-care (01) ==
LOC: C.ER 19:55
DX: F25.9 Schizoaffective disorder, unspecified (principal); Z76.5 Malingerer [conscious simulation]

== ENCOUNTER 2017-06-09 17:03 | Emergency (ER) | payer MEDICARE ==
[2017-06-09 17:04] VITALS: BMI 23.0
[2017-06-09 17:47] VITALS: O2SAT 99
[2017-06-09 18:41] LABS: BASO % 0.4 % (0.0-2.0); EOS # 0.1 K/uL (0.0-0.7); EOS % 1.7 % (0.0-4.0); HEMOGLOBIN 13.6 g/dL (12.0-18.0); LYMPH # 1.9 K/uL (1.0-4.3); LYMPH % 41.8 % (20.0-40.0); MEAN CELL VOLUME 89.9 fL (80.0-94.0); MEAN CORPUSCULAR HEMOGLOBIN 30.7 pg (27.0-31.0); MEAN CORPUSCULAR HGB CONC 34.2 g/dL (33.0-37.0); MONO # 0.4 K/uL (0.0-0.8); MONO % 8.2 % (0.0-10.0); NEUT # 2.1 K/uL (1.8-7.0); NEUT % 47.9 % (50.0-75.0); NRBC % 0.1 % (0.0-2.0); RBC 4.42 Mil/uL (4.40-5.90); RED CELL DISTRIBUTION WIDTH 13.2 % (11.5-14.5); WHITE BLOOD COUNT 4.4 K/uL (4.8-10.8)
--- NOTE | 2017-06-09 18:41 | C.PDOC ---
History Of Present Illness 57 y/o male presents to the ER complaining that he is hearing voices. Patient denies having suicidal ideation and homicidal ideation. Of note, patient is well known to [facility] ER. Time Seen by Provider: 06/09/17 18:17 Chief Complaint (Nursing): Psychiatric Evaluation History Per: Patient History/Exam Limitations: no limitations Onset/Duration Of Symptoms: Hrs Current Symptoms Are (Timing): Still Present Severity: Moderate Past Medical History Reviewed: Historical Data, Nursing Documentation, Vital Signs Vital Signs: Last Vital Signs Temp 98.5 F 06/09/17 22:05 Pulse 79 06/09/17 22:05 Resp 20 06/09/17 22:05 BP 93/60 L 06/09/17 22:05 Pulse Ox 99 06/09/17 22:07 - Medical History PMH: Anxiety, Asthma, Bipolar Disorder, Depression, Gastritis, Paranoia, Personality Disorder, Schizophrenia, Seizures, Chronic Pain (abd) Denies: Diabetes, Hepatitis, HIV, HTN, Sexually Transmitted Disease Surgical History: No Surg Hx - [facility] Procedures APPLICATION OF SPLINT (04/09/14) CL FX REDUC-TIBIA/FIBULA (02/26/13) GROUP PSYCHOTHERAPY (06/01/17) INDIVID PSYCHOTHERAP NEC (12/17/13) INDIVIDUAL PSYCHOTHERAPY, BEHAVIORAL (01/29/16) INDIVIDUAL PSYCHOTHERAPY, COGNITIVE-BEHAVIORAL (07/30/16) INDIVIDUAL PSYCHOTHERAPY, SUPPORTIVE (06/01/17) MEDICATION MANAGEMENT (07/22/16) OTHER GROUP THERAPY (11/05/13) PSYCHIA INTERV/EVAL NEC (06/28/14) Family History: States: No Known Family Hx - Social History Hx Tobacco Use: Yes (heavy smoker) Hx Alcohol Use: No Hx Substance Use: No - Immunization History Hx Tetanus Toxoid Vaccination: No Hx Influenza Vaccination: No Hx Pneumococcal Vaccination: No Review Of Systems Psych: Positive for: Other (hearing voices) Physical Exam - Physical Exam Appears: No Acute Distress Skin: Normal Color, Warm Head: Atraumatic, Normacephalic Eye(s): bilateral: Normal Inspection Nose: Normal Oral Mucosa: Moist Neck: Supple Chest: Symmetrical Cardiovascular: Rhythm Regular Respiratory: Normal Breath Sounds, No Rales, No Rhonchi, No Wheezing Gastrointestinal/Abdominal: Soft, No Tenderness Neurological/Psych: Oriented x3, Normal Speech, Normal Motor, Normal Sensation ED Course And Treatment - Laboratory Results Result Diagrams: 06/09/17 18:37 06/09/17 18:37 O2 Sat by Pulse Oximetry: 99 (RA) Pulse Ox Interpretation: Normal Medical Decision Making Medical Decision Making: Assessment: Auditory Hallucinations Plan: --Labs --UA Progress: Patient has been seen by crisis who state he is well known to them and clear him for discharge. Diagnosis: Hallucinations. Disposition Discussed With Dr.: Cedric Rowley Counseled Patient/Family Regarding: Studies Performed, Diagnosis, Need For Followup - Disposition Referrals: Cedric Rowley MD [Staff Provider] - Disposition: HOME/ ROUTINE Disposition Time: 20:11 Condition: STABLE Additional Instructions: follow up with your doctor in 2 days call to make an appointment take medications as prescribed return to ER if symptoms worsens or progress As per Dr. Rowley you are okay to go home Instructions: Depression Forms: [facility] (Mauritanian), General Discharge Instructions - Clinical Impression Clinical Impression: Hallucination - Scribe Statement The provider has reviewed the documentation as recorded by the Leonard Walsh Provider Attestation: All medical record entries made by the Madhavibe were at my direction and personally dictated by me. I have reviewed the chart and agree that the record accurately reflects my personal performance of the history, physical exam, medical decision making, and the department course for this patient. I have also personally directed, reviewed, and agree with the discharge instructions and disposition.
[2017-06-09 19:05] LABS: ALB/GLOB RATIO 1.2 (1.0-2.1); ALBUMIN 3.6 g/dL (3.5-5.0); ALT/SGPT 26 U/L (21-72); AST/SGOT 27 U/L (17-59); BLOOD UREA NITROGEN 20 mg/dL (9-20); GFR AFRICAN-AMERICAN > 60; GFR NON-AFRICAN AMERICAN > 60
[2017-06-09 19:45] LABS: BARBITURATES, UR NEGATIVE (NEGATIVE); BENZODIAZEPINES, UR NEGATIVE (NEGATIVE); OPIATES, UR NEGATIVE (NEGATIVE); PHENCYCLIDINE, UR NEGATIVE (NEGATIVE); URINE BILIRUBIN NEGATIVE (NEGATIVE); URINE BLOOD NEGATIVE (NEGATIVE); URINE CLARITY Clear (Clear); URINE COLOR Yellow (YELLOW); URINE GLUCOSE (UA) NORMAL (Normal); URINE LEUKOCYTE ESTERASE NEG Leu/uL (Negative); URINE PROTEIN NEGATIVE (NEGATIVE)
[2017-06-09 22:06] VITALS: BP 93/60; PULSE 79; RESP 20; TEMP 98.5
== END 2017-06-09 22:30 | disposition home or self-care (01) ==
LOC: C.ER 17:03
DX: R44.3 Hallucinations, unspecified (principal); F17.210 Nicotine dependence, cigarettes, uncomplicated

== ENCOUNTER 2017-06-10 07:26 | Emergency (ER) | payer MEDICARE ==
[2017-06-10 07:26] VITALS: BMI 23.0
--- NOTE | 2017-06-10 08:11 | C.PDOC ---
History Of Present Illness 57-year-old male, PMHx includes Gastritis, Paranoia, Personality Disorder, and Schizophrenia, presents to the emergency department with complaints of abdominal pain and auditory hallucinations. Patient has a history of multiple visits in ED for same complaint. Denies any nausea/vomiting. Time Seen by Provider: 06/10/17 07:43 Chief Complaint (Nursing): Abdominal Pain History Per: Patient History/Exam Limitations: no limitations Past Medical History Reviewed: Historical Data, Nursing Documentation, Vital Signs Vital Signs: Last Vital Signs Temp 97.7 F 06/10/17 09:16 Pulse 67 06/10/17 09:16 Resp 20 06/10/17 09:16 BP 108/67 06/10/17 09:16 Pulse Ox 95 06/10/17 09:16 - Medical History PMH: Anxiety, Asthma, Bipolar Disorder, Depression, Gastritis, Paranoia, Personality Disorder, Schizophrenia, Seizures, Chronic Pain (abd) Surgical History: - [facility] Procedures APPLICATION OF SPLINT (04/09/14) CL FX REDUC-TIBIA/FIBULA (02/26/13) GROUP PSYCHOTHERAPY (06/01/17) INDIVID PSYCHOTHERAP NEC (12/17/13) INDIVIDUAL PSYCHOTHERAPY, BEHAVIORAL (01/29/16) INDIVIDUAL PSYCHOTHERAPY, COGNITIVE-BEHAVIORAL (07/30/16) INDIVIDUAL PSYCHOTHERAPY, SUPPORTIVE (06/01/17) MEDICATION MANAGEMENT (07/22/16) OTHER GROUP THERAPY (11/05/13) PSYCHIA INTERV/EVAL NEC (06/28/14) Family History: States: No Known Family Hx - Social History Hx Tobacco Use: Yes (heavy smoker) Hx Alcohol Use: No Hx Substance Use: No - Immunization History Hx Tetanus Toxoid Vaccination: No Hx Influenza Vaccination: No Hx Pneumococcal Vaccination: No Review Of Systems Respiratory: Negative for: Shortness of Breath Gastrointestinal: Positive for: Abdominal Pain. Negative for: Nausea, Vomiting Psych: Negative for: Suicidal ideation Physical Exam - Physical Exam Appears: Non-toxic, No Acute Distress, Unkempt (malodorous) Skin: Normal Color, Warm, Dry, No Rash Head: Atraumatic, Normacephalic Eye(s): bilateral: Normal Inspection Neck: Normal ROM Chest: Symmetrical Cardiovascular: Rhythm Regular Respiratory: Normal Breath Sounds Gastrointestinal/Abdominal: Soft, No Tenderness Extremity: Normal ROM, No Deformity, No Swelling ED Course And Treatment O2 Sat by Pulse Oximetry: 99 (RA) Pulse Ox Interpretation: Normal Medical Decision Making Medical Decision Making: Patient treated with PO pepcid. Patient is just sleeping on stretcher in no distress. He has been seen in ED multiple times, was seen twice in ED yesterday. Patient had normal labwork and evaluated by crisis and discharged. Patient is stable for discharge Disposition Counseled Patient/Family Regarding: Need For Followup - Disposition Referrals: [facility] [Outside] Disposition: HOME/ ROUTINE Disposition Time: 09:20 Condition: GOOD Instructions: Schizophrenia (DC) Forms: [email or web address] (Polish) - POA Present On Arrival: None - Clinical Impression Clinical Impression: Schizophrenia, Abdominal pain, chronic, epigastric - Scribe Statement The provider has reviewed the documentation as recorded by the Scribe (Arabella Hemphill) All medical record entries made by the Scribe were at my direction and personally dictated by me. I have reviewed the chart and agree that the record accurately reflects my personal performance of the history, physical exam, medical decision making, and the department course for this patient. I have also personally directed, reviewed, and agree with the discharge instructions and disposition.
[2017-06-10 09:17] VITALS: BP 108/67; PULSE 67; RESP 20; TEMP 97.7
[2017-06-10 10:00] VITALS: O2SAT 99
== END 2017-06-10 09:22 | disposition home or self-care (01) ==
LOC: C.ER 07:26
DX: F20.9 Schizophrenia, unspecified (principal); R10.13 Epigastric pain

== ENCOUNTER 2017-06-10 18:37 | Emergency (ER) | payer MEDICARE ==
[2017-06-10 18:38] VITALS: BMI 23.0
--- NOTE | 2017-06-10 19:05 | C.PDOC ---
History Of Present Illness Silvio Vergara is a 57 year old male, with a past medical history of schizophrenia and bipolar disorder, who presents to the emergency department complaining of hearing voices and generalized abdominal pain. Patient is well known in the ER for multiple visits. He didn't have anything to eat or drink all day. Patient states the voices are telling him to kill himself but doesn't have a plan. He denies drinking alcohol or other medical complaints. PMD: None provided. Time Seen by Provider: 06/10/17 18:50 Chief Complaint (Nursing): Abdominal Pain History Per: Patient History/Exam Limitations: no limitations Onset/Duration Of Symptoms: Days Past Medical History Reviewed: Historical Data, Nursing Documentation, Vital Signs Vital Signs: Last Vital Signs Temp 97.9 F 06/10/17 18:45 Pulse 82 06/10/17 18:45 Resp 20 06/10/17 18:45 BP 132/84 06/10/17 18:45 Pulse Ox 99 06/10/17 19:09 - Medical History PMH: Anxiety, Asthma, Bipolar Disorder, Depression, Gastritis, Paranoia, Personality Disorder, Schizophrenia, Seizures, Chronic Pain (abd) Denies: HIV, HTN, Sexually Transmitted Disease Surgical History: No Surg Hx - [facility] Procedures APPLICATION OF SPLINT (04/09/14) CL FX REDUC-TIBIA/FIBULA (02/26/13) GROUP PSYCHOTHERAPY (06/01/17) INDIVID PSYCHOTHERAP NEC (12/17/13) INDIVIDUAL PSYCHOTHERAPY, BEHAVIORAL (01/29/16) INDIVIDUAL PSYCHOTHERAPY, COGNITIVE-BEHAVIORAL (07/30/16) INDIVIDUAL PSYCHOTHERAPY, SUPPORTIVE (06/01/17) MEDICATION MANAGEMENT (07/22/16) OTHER GROUP THERAPY (11/05/13) PSYCHIA INTERV/EVAL NEC (06/28/14) Family History: States: Unknown Family Hx - Social History Hx Tobacco Use: Yes (heavy smoker) Hx Alcohol Use: No Hx Substance Use: No - Immunization History Hx Tetanus Toxoid Vaccination: No Hx Influenza Vaccination: No Hx Pneumococcal Vaccination: No Review Of Systems Gastrointestinal: Positive for: Abdominal Pain (generalized) Psych: Positive for: Suicidal ideation (hearing voices) Physical Exam - Physical Exam Appears: No Acute Distress (at baseline) Skin: Normal Color, Warm, Dry Head: Atraumatic, Normacephalic Eye(s): bilateral: Normal Inspection Neck: Normal ROM Chest: Symmetrical Cardiovascular: Rhythm Regular Respiratory: Normal Breath Sounds, No Wheezing Gastrointestinal/Abdominal: Normal Exam, Soft, No Tenderness, No Guarding, No Rebound Extremity: Normal ROM, No Deformity, No Swelling Neurological/Psych: Oriented x3 ED Course And Treatment - Laboratory Results Result Diagrams: 06/10/17 19:19 06/10/17 19:19 Lab Interpretation: No Acute Changes O2 Sat by Pulse Oximetry: 99 (RA) Pulse Ox Interpretation: Normal Reevaluation Time: 21:26 Reassessment Condition: Improved Medical Decision Making Medical Decision Making: Initial Impression: psych evaluation Initial Plan: --Alcohol serum --CMP --Lipase --CBC w/ differential --Urinalysis --Reevaluation Disposition Counseled Patient/Family Regarding: Studies Performed, Diagnosis, Need For Followup - Disposition Disposition: HOME/ ROUTINE Disposition Time: 21:27 Condition: IMPROVED Instructions: Acute Abdomen (Belly Pain), Schizophrenia (DC) Forms: [employer] (Libyan) - Clinical Impression Clinical Impression: Abdominal pain, Schizophrenia - Scribe Statement Omkar Perez
[2017-06-10 19:25] LABS: BASO % 0.8 % (0.0-2.0); EOS # 0.1 K/uL (0.0-0.7); EOS % 2.7 % (0.0-4.0); HEMOGLOBIN 13.1 g/dL (12.0-18.0); LYMPH # 1.8 K/uL (1.0-4.3); LYMPH % 37.9 % (20.0-40.0); MEAN CELL VOLUME 89.8 fL (80.0-94.0); MEAN CORPUSCULAR HEMOGLOBIN 30.3 pg (27.0-31.0); MEAN CORPUSCULAR HGB CONC 33.7 g/dL (33.0-37.0); MEAN PLATELET VOLUME 8.1 fL (7.2-11.7); MONO # 0.3 K/uL (0.0-0.8); NEUT # 2.5 K/uL (1.8-7.0); NEUT % 52.6 % (50.0-75.0); NRBC % 0.1 % (0.0-2.0); RBC 4.33 Mil/uL (4.40-5.90); RED CELL DISTRIBUTION WIDTH 12.9 % (11.5-14.5); WHITE BLOOD COUNT 4.8 K/uL (4.8-10.8)
[2017-06-10 19:39] LABS: ALB/GLOB RATIO 1.2 (1.0-2.1); ALBUMIN 3.5 g/dL (3.5-5.0); ALT/SGPT 30 U/L (21-72); AST/SGOT 22 U/L (17-59); BLOOD UREA NITROGEN 14 mg/dL (9-20); CALCIUM 8.7 mg/dl (8.6-10.4); GFR AFRICAN-AMERICAN > 60; GFR NON-AFRICAN AMERICAN > 60; LIPASE 145 U/L (23-300)
[2017-06-10 20:05] LABS: URINE BILIRUBIN NEGATIVE (NEGATIVE); URINE BLOOD NEGATIVE (NEGATIVE); URINE CLARITY Clear (Clear); URINE COLOR Yellow (YELLOW); URINE GLUCOSE (UA) NORMAL (Normal); URINE LEUKOCYTE ESTERASE NEG Leu/uL (Negative); URINE PROTEIN NEGATIVE (NEGATIVE); URINE UROBILINOGEN NORMAL mg/dL (0.2-1.0)
[2017-06-10 21:35] VITALS: BP 115/86; PULSE 86; RESP 22; TEMP 98.3; O2SAT 98
== END 2017-06-10 21:31 | disposition home or self-care (01) ==
LOC: C.ER 18:37
DX: F20.9 Schizophrenia, unspecified (principal); R10.9 Unspecified abdominal pain

== ENCOUNTER 2017-06-12 19:55 | Emergency (ER) | payer MEDICARE ==
[2017-06-12 19:56] VITALS: BMI 23.0
--- NOTE | 2017-06-12 20:09 | C.PDOC ---
History Of Present Illness 57 yr old male presents to the ER requesting a place to stay. Patient denies fever, chills, nausea, vomiting, SI or HI. Time Seen by Provider: 06/12/17 20:07 Chief Complaint (Nursing): Psychiatric Evaluation History Per: Patient History/Exam Limitations: no limitations Onset/Duration Of Symptoms: Persistent Current Symptoms Are (Timing): Gone Suicide/Self Injury Attempted (Context): None Past Medical History Reviewed: Historical Data, Nursing Documentation, Vital Signs Vital Signs: Last Vital Signs Temp 98.5 F 06/12/17 23:00 Pulse 85 06/12/17 23:00 Resp 18 06/12/17 23:00 BP 147/84 06/12/17 23:00 Pulse Ox 95 06/12/17 23:00 - Medical History PMH: Anxiety, Asthma, Bipolar Disorder, Depression, Gastritis, Paranoia, Personality Disorder, Schizophrenia, Seizures, Chronic Pain (abd) Surgical History: - [facility] Procedures APPLICATION OF SPLINT (04/09/14) CL FX REDUC-TIBIA/FIBULA (02/26/13) GROUP PSYCHOTHERAPY (06/01/17) INDIVID PSYCHOTHERAP NEC (12/17/13) INDIVIDUAL PSYCHOTHERAPY, BEHAVIORAL (01/29/16) INDIVIDUAL PSYCHOTHERAPY, COGNITIVE-BEHAVIORAL (07/30/16) INDIVIDUAL PSYCHOTHERAPY, SUPPORTIVE (06/01/17) MEDICATION MANAGEMENT (07/22/16) OTHER GROUP THERAPY (11/05/13) PSYCHIA INTERV/EVAL NEC (06/28/14) Family History: States: No Known Family Hx - Social History Hx Tobacco Use: Yes (heavy smoker) Hx Alcohol Use: No Hx Substance Use: No - Immunization History Hx Tetanus Toxoid Vaccination: No Hx Influenza Vaccination: No Hx Pneumococcal Vaccination: No Review Of Systems Except As Marked, All Systems Reviewed And Found Negative. Constitutional: Negative for: Fever, Chills Gastrointestinal: Negative for: Nausea, Vomiting Neurological: Negative for: Headache Physical Exam - Physical Exam Appears: Non-toxic, No Acute Distress Skin: Warm, Dry Head: Normacephalic Chest: Symmetrical Cardiovascular: Rhythm Regular Respiratory: No Rales, No Rhonchi Gastrointestinal/Abdominal: Soft, No Tenderness Extremity: Normal ROM Extremity: Bilateral: Atraumatic Neurological/Psych: Oriented x3 Gait: Steady ED Course And Treatment O2 Sat by Pulse Oximetry: 96 (RA) Pulse Ox Interpretation: Normal Reevaluation Time: 03:26 Reassessment Condition: Improved Disposition Counseled Patient/Family Regarding: Studies Performed, Diagnosis, Need For Followup - Disposition Referrals: [facility] [Outside] Disposition: HOME/ ROUTINE Disposition Time: 20:08 Condition: FAIR Forms: [facility] (Sami), General Discharge Instructions - Clinical Impression Clinical Impression: Schizophrenia - Scribe Statement The provider has reviewed the documentation as recorded by the Madhavibalexis Tucker Provider Attestation: All medical record entries made by the Leonard were at my direction and personally dictated by me. I have reviewed the chart and agree that the record accurately reflects my personal performance of the history, physical exam, medical decision making, and the department course for this patient. I have also personally directed, reviewed, and agree with the discharge instructions and disposition.
--- NOTE | 2017-06-12 20:09 | C.PDOC ---
Time Seen by Provider: 06/12/17 20:07 Chief Complaint (Nursing): Psychiatric Evaluation Past Medical History Vital Signs: Last Vital Signs Temp 98.1 F 06/12/17 19:59 Pulse 70 06/12/17 19:59 Resp 14 06/12/17 19:59 BP 120/70 06/12/17 19:59 Pulse Ox 96 06/12/17 19:59 - Medical History PMH: Anxiety, Asthma, Bipolar Disorder, Depression, Gastritis, Paranoia, Personality Disorder, Schizophrenia, Seizures, Chronic Pain (abd) Denies: HIV, HTN, Sexually Transmitted Disease Surgical History: - [facility] Procedures APPLICATION OF SPLINT (04/09/14) CL FX REDUC-TIBIA/FIBULA (02/26/13) GROUP PSYCHOTHERAPY (06/01/17) INDIVID PSYCHOTHERAP NEC (12/17/13) INDIVIDUAL PSYCHOTHERAPY, BEHAVIORAL (01/29/16) INDIVIDUAL PSYCHOTHERAPY, COGNITIVE-BEHAVIORAL (07/30/16) INDIVIDUAL PSYCHOTHERAPY, SUPPORTIVE (06/01/17) MEDICATION MANAGEMENT (07/22/16) OTHER GROUP THERAPY (11/05/13) PSYCHIA INTERV/EVAL NEC (06/28/14) Family History: States: Unknown Family Hx - Social History Hx Tobacco Use: Yes (heavy smoker) Hx Alcohol Use: No Hx Substance Use: No - Immunization History Hx Tetanus Toxoid Vaccination: No Hx Influenza Vaccination: No Hx Pneumococcal Vaccination: No ED Course And Treatment O2 Sat by Pulse Oximetry: 96 Disposition - Disposition Forms: [employer] (Frisian)
[2017-06-13 03:40] VITALS: BP 128/72; PULSE 72; RESP 20; TEMP 98; O2SAT 97
== END 2017-06-13 03:39 | disposition home or self-care (01) ==
LOC: C.ER 19:55
DX: F20.9 Schizophrenia, unspecified (principal); F17.210 Nicotine dependence, cigarettes, uncomplicated

== ENCOUNTER 2017-06-13 18:08 | Emergency (ER) | payer MEDICARE ==
[2017-06-13 18:08] VITALS: BMI 23.0
[2017-06-13 18:23] VITALS: BP 136/89; PULSE 86; RESP 20; TEMP 98; O2SAT 97
--- NOTE | 2017-06-13 18:28 | C.PDOC ---
Time Seen by Provider: 06/13/17 18:24 Chief Complaint (Nursing): Medical Clearance Past Medical History Vital Signs: Last Vital Signs Temp 98 F 06/13/17 18:18 Pulse 86 06/13/17 18:18 Resp 20 06/13/17 18:18 BP 136/89 06/13/17 18:18 Pulse Ox 97 06/13/17 18:18 - Medical History PMH: Anxiety, Asthma, Bipolar Disorder, Depression, Gastritis, Paranoia, Personality Disorder, Schizophrenia, Seizures, Chronic Pain (abd) Denies: HIV, HTN, Sexually Transmitted Disease Surgical History: - [facility] Procedures APPLICATION OF SPLINT (04/09/14) CL FX REDUC-TIBIA/FIBULA (02/26/13) GROUP PSYCHOTHERAPY (06/01/17) INDIVID PSYCHOTHERAP NEC (12/17/13) INDIVIDUAL PSYCHOTHERAPY, BEHAVIORAL (01/29/16) INDIVIDUAL PSYCHOTHERAPY, COGNITIVE-BEHAVIORAL (07/30/16) INDIVIDUAL PSYCHOTHERAPY, SUPPORTIVE (06/01/17) MEDICATION MANAGEMENT (07/22/16) OTHER GROUP THERAPY (11/05/13) PSYCHIA INTERV/EVAL NEC (06/28/14) Family History: States: Unknown Family Hx - Social History Hx Tobacco Use: Yes (heavy smoker) Hx Alcohol Use: No Hx Substance Use: No - Immunization History Hx Tetanus Toxoid Vaccination: No Hx Influenza Vaccination: No Hx Pneumococcal Vaccination: No ED Course And Treatment O2 Sat by Pulse Oximetry: 97 Medical Decision Making Medical Decision Making: malingering seen @ [facility] ED earlier today, same dx no acute issues Disposition Doctor Will See Patient In The: Office Counseled Patient/Family Regarding: Studies Performed, Diagnosis - Disposition Disposition: HOME/ ROUTINE Disposition Time: 18:27 Condition: GOOD - Clinical Impression Clinical Impression: Malingering, Schizoaffective disorder
== END 2017-06-13 18:39 | disposition home or self-care (01) ==
LOC: C.ER 18:08
DX: F25.9 Schizoaffective disorder, unspecified (principal); Z76.5 Malingerer [conscious simulation]

== ENCOUNTER 2017-06-13 22:11 | Emergency (ER) | payer MEDICARE ==
[2017-06-13 22:12] VITALS: BMI 23.0
[2017-06-13 22:33] VITALS: O2SAT 97
--- NOTE | 2017-06-13 23:16 | C.PDOC ---
History Of Present Illness 57yo male, well known to ER for evaluation, stating he is having hallucinations. Patient is well known to provider and ER for multiple presentations with similar complaints. Patient at baseline and is in no acute distress. Time Seen by Provider: 06/13/17 22:43 Chief Complaint (Nursing): Psychiatric Evaluation History Per: Patient History/Exam Limitations: no limitations Onset/Duration Of Symptoms: Persistent Past Medical History Reviewed: Historical Data, Nursing Documentation, Vital Signs Vital Signs: Last Vital Signs Temp 98.4 F 06/14/17 00:29 Pulse 88 06/14/17 00:29 Resp 22 06/14/17 00:29 BP 112/76 06/14/17 00:29 Pulse Ox 97 06/14/17 20:44 - Medical History PMH: Anxiety, Asthma, Bipolar Disorder, Depression, Gastritis, Paranoia, Personality Disorder, Schizophrenia, Seizures, Chronic Pain (abd) Denies: HIV, HTN, Sexually Transmitted Disease Surgical History: - [facility] Procedures APPLICATION OF SPLINT (04/09/14) CL FX REDUC-TIBIA/FIBULA (02/26/13) GROUP PSYCHOTHERAPY (06/01/17) INDIVID PSYCHOTHERAP NEC (12/17/13) INDIVIDUAL PSYCHOTHERAPY, BEHAVIORAL (01/29/16) INDIVIDUAL PSYCHOTHERAPY, COGNITIVE-BEHAVIORAL (07/30/16) INDIVIDUAL PSYCHOTHERAPY, SUPPORTIVE (06/01/17) MEDICATION MANAGEMENT (07/22/16) OTHER GROUP THERAPY (11/05/13) PSYCHIA INTERV/EVAL NEC (06/28/14) Family History: States: Unknown Family Hx - Social History Hx Tobacco Use: Yes (heavy smoker) Hx Alcohol Use: No Hx Substance Use: No - Immunization History Hx Tetanus Toxoid Vaccination: No Hx Influenza Vaccination: No Hx Pneumococcal Vaccination: No Review Of Systems Except As Marked, All Systems Reviewed And Found Negative. Constitutional: Negative for: Fever, Chills Cardiovascular: Negative for: Chest Pain Respiratory: Negative for: Shortness of Breath Gastrointestinal: Negative for: Abdominal Pain Psych: Positive for: Other (hallucinations) Physical Exam - Physical Exam Appears: Non-toxic, No Acute Distress Skin: Normal Color Head: Normacephalic Eye(s): bilateral: Normal Inspection Neck: Normal ROM, Supple Chest: Symmetrical Cardiovascular: Rhythm Regular Respiratory: Normal Breath Sounds Neurological/Psych: Normal Speech, Normal Cognition ED Course And Treatment O2 Sat by Pulse Oximetry: 97 (RA) Pulse Ox Interpretation: Normal Progress Note: Case discussed with quarry worker Rhonda, who states patient is well known to her. He does not meet criteria for psychiatric admission. Patient currently in no distress and stable for discharge home. Disposition Counseled Patient/Family Regarding: Diagnosis, Need For Followup, Rx Given - Disposition Referrals: [facility] [Outside] Disposition: HOME/ ROUTINE Disposition Time: 00:26 Condition: STABLE Forms: General Discharge Instructions - Clinical Impression Clinical Impression: Malingering, Hallucinations - PA / RETAIL AGENT / Resident Statement MD/DO has reviewed & agrees with the documentation as recorded. - Scribe Statement The provider has reviewed the documentation as recorded by the Scribe (Cleo Azul) All medical record entries made by the Scribe were at my direction and personally dictated by me. I have reviewed the chart and agree that the record accurately reflects my personal performance of the history, physical exam, medical decision making, and the department course for this patient. I have also personally directed, reviewed, and agree with the discharge instructions and disposition.
[2017-06-14 00:30] VITALS: BP 112/76; PULSE 88; RESP 22; TEMP 98.4
== END 2017-06-14 01:04 | disposition home or self-care (01) ==
LOC: C.ER 22:11
DX: Z76.5 Malingerer [conscious simulation] (principal); R44.3 Hallucinations, unspecified; F20.9 Schizophrenia, unspecified; F17.210 Nicotine dependence, cigarettes, uncomplicated

== ENCOUNTER 2017-06-14 15:20 | Emergency (ER) | payer MEDICARE ==
[2017-06-14 15:20] VITALS: BMI 23.0
[2017-06-14 15:36] VITALS: BP 119/89; PULSE 100; RESP 18; TEMP 98.1; O2SAT 100
--- NOTE | 2017-06-14 16:05 | C.PDOC ---
Time Seen by Provider: 06/14/17 15:44 Chief Complaint (Nursing): Psychiatric Evaluation Past Medical History Vital Signs: Last Vital Signs Temp 98.1 F 06/14/17 15:34 Pulse 100 H 06/14/17 15:34 Resp 18 06/14/17 15:34 BP 119/89 06/14/17 15:34 Pulse Ox 100 06/14/17 15:34 - Medical History PMH: Anxiety, Asthma, Bipolar Disorder, Depression, Gastritis, Paranoia, Personality Disorder, Schizophrenia, Seizures, Chronic Pain (abd) Denies: HIV, HTN, Sexually Transmitted Disease Surgical History: - [facility] Procedures APPLICATION OF SPLINT (04/09/14) CL FX REDUC-TIBIA/FIBULA (02/26/13) GROUP PSYCHOTHERAPY (06/01/17) INDIVID PSYCHOTHERAP NEC (12/17/13) INDIVIDUAL PSYCHOTHERAPY, BEHAVIORAL (01/29/16) INDIVIDUAL PSYCHOTHERAPY, COGNITIVE-BEHAVIORAL (07/30/16) INDIVIDUAL PSYCHOTHERAPY, SUPPORTIVE (06/01/17) MEDICATION MANAGEMENT (07/22/16) OTHER GROUP THERAPY (11/05/13) PSYCHIA INTERV/EVAL NEC (06/28/14) Family History: States: Unknown Family Hx - Social History Hx Tobacco Use: Yes (heavy smoker) Hx Alcohol Use: No Hx Substance Use: No - Immunization History Hx Tetanus Toxoid Vaccination: No Hx Influenza Vaccination: No Hx Pneumococcal Vaccination: No ED Course And Treatment O2 Sat by Pulse Oximetry: 100 Medical Decision Making Medical Decision Making: baseline schizoid yesterday seen in our ED twice and [facility] ED once. Malingering, no acute issues. warm enough out to d/c safely. Disposition Doctor Will See Patient In The: Office Counseled Patient/Family Regarding: Studies Performed, Diagnosis - Disposition Disposition: HOME/ ROUTINE Disposition Time: 16:04 Condition: GOOD - Clinical Impression Clinical Impression: Schizoaffective disorder, Malingerer
== END 2017-06-14 16:17 | disposition home or self-care (01) ==
LOC: C.ER 15:20
DX: F25.9 Schizoaffective disorder, unspecified (principal); Z76.5 Malingerer [conscious simulation]; F17.210 Nicotine dependence, cigarettes, uncomplicated

== ENCOUNTER 2017-06-14 21:24 | Emergency (ER) | payer MEDICARE ==
[2017-06-14 21:25] VITALS: BMI 23.0
[2017-06-14 21:31] VITALS: BP 131/85; TEMP 98.5; O2SAT 99
--- NOTE | 2017-06-14 21:45 | C.PDOC ---
History Of Present Illness Patient is a 57 y/o male, with a Hx of schizophrenia, who presents to the ED with a complaint of foot pain after walking around. Patient denies any fever or chills. Patient has an extensive history of ED presentations. No other physical complaints at this time. Time Seen by Provider: 06/14/17 21:36 Chief Complaint (Nursing): Lower Extremity Problem/Injury History Per: Patient History/Exam Limitations: no limitations Onset/Duration Of Symptoms: Hrs Current Symptoms Are (Timing): Still Present Recent travel outside of the [place]: No Past Medical History Reviewed: Historical Data, Nursing Documentation, Vital Signs Vital Signs: Last Vital Signs Temp 98.5 F 06/14/17 21:28 Pulse 95 H 06/14/17 21:28 Resp 18 06/14/17 21:28 BP 131/85 06/14/17 21:28 Pulse Ox 99 06/14/17 21:50 - Medical History PMH: Anxiety, Asthma, Bipolar Disorder, Depression, Gastritis, Paranoia, Personality Disorder, Schizophrenia, Seizures, Chronic Pain (abd) Denies: HIV, HTN, Sexually Transmitted Disease Surgical History: - [facility] Procedures APPLICATION OF SPLINT (04/09/14) CL FX REDUC-TIBIA/FIBULA (02/26/13) GROUP PSYCHOTHERAPY (06/01/17) INDIVID PSYCHOTHERAP NEC (12/17/13) INDIVIDUAL PSYCHOTHERAPY, BEHAVIORAL (01/29/16) INDIVIDUAL PSYCHOTHERAPY, COGNITIVE-BEHAVIORAL (07/30/16) INDIVIDUAL PSYCHOTHERAPY, SUPPORTIVE (06/01/17) MEDICATION MANAGEMENT (07/22/16) OTHER GROUP THERAPY (11/05/13) PSYCHIA INTERV/EVAL NEC (06/28/14) Family History: States: Unknown Family Hx - Social History Hx Tobacco Use: Yes (heavy smoker) Hx Alcohol Use: No Hx Substance Use: No - Immunization History Hx Tetanus Toxoid Vaccination: No Hx Influenza Vaccination: No Hx Pneumococcal Vaccination: No Review Of Systems Musculoskeletal: Positive for: Foot Pain (right foot) Physical Exam - Physical Exam Appears: Well, Non-toxic, No Acute Distress Skin: Normal Color, Warm Head: Atraumatic, Normacephalic Eye(s): bilateral: Normal Inspection, PERRL, EOMI Oral Mucosa: Moist Neck: Normal ROM, Supple Chest: Symmetrical, No Tenderness Cardiovascular: Rhythm Regular, No Friction Rub, No Murmur Respiratory: No Rales, No Rhonchi, No Wheezing Gastrointestinal/Abdominal: Normal Exam, Soft, No Tenderness Extremity: Normal ROM (x4), No Tenderness, No Swelling Extremity: Right: Atraumatic, No Pedal Edema Pulses: Left Dorsalis Pedis: Normal, Right Dorsalis Pedis: Normal Neurological/Psych: Oriented x3, Normal Motor, Normal Sensation Gait: Steady ED Course And Treatment O2 Sat by Pulse Oximetry: 99 (on RA) Pulse Ox Interpretation: Normal Medical Decision Making Medical Decision Making: Patient is stable for discharge due to negative physical examination. Disposition - Disposition Referrals: Non [facility] Provider, [Primary Care Provider] - Disposition: HOME/ ROUTINE Disposition Time: 22:06 Condition: GOOD Additional Instructions: Follow up with the medical doctor/clinic within 1-2 days. Return if worsened. Instructions: Foot Sprain (DC) Forms: [facility] (Citizen [place]) - Clinical Impression Clinical Impression: Foot pain - Scribe Statement The provider has reviewed the documentation as recorded by the Scribe Muna Winn All medical record entries made by the Scribe were at my direction and personally dictated by me. I have reviewed the chart and agree that the record accurately reflects my personal performance of the history, physical exam, medical decision making, and the department course for this patient. I have also personally directed, reviewed, and agree with the discharge instructions and disposition.
[2017-06-14 22:14] VITALS: PULSE 90; RESP 20
== END 2017-06-14 22:14 | disposition home or self-care (01) ==
LOC: SUPCPDRO 21:24 → C.ER 21:24
DX: M79.671 Pain in right foot (principal); F20.9 Schizophrenia, unspecified; F17.210 Nicotine dependence, cigarettes, uncomplicated

== ENCOUNTER 2017-06-15 10:30 | Emergency (ER) | payer MEDICARE ==
[2017-06-15 10:31] VITALS: BMI 23.0
[2017-06-15 10:47] VITALS: BP 137/82; PULSE 95; RESP 18; TEMP 98.5; O2SAT 99
== END 2017-06-15 11:59 | disposition left against medical advice (07) ==
LOC: C.ER 10:30
DX: Z02.89 Encounter for other administrative examinations (principal); R44.0 Auditory hallucinations

== ENCOUNTER 2017-06-15 22:39 | Emergency (ER) | payer MEDICARE ==
[2017-06-15 22:39] VITALS: BMI 23.0
[2017-06-15 22:49] VITALS: BP 126/65; PULSE 82; RESP 18; TEMP 98.2; O2SAT 98
--- NOTE | 2017-06-15 22:53 | C.PDOC ---
History Of Present Illness pt requesting a place to sleep . Denies any physical complaints. Was also seen twice at [facility] and once earlier today at [facility] for similar complaints Time Seen by Provider: 06/15/17 22:51 Chief Complaint (Nursing): Psychiatric Evaluation History Per: Patient History/Exam Limitations: no limitations Onset/Duration Of Symptoms: Hrs Current Symptoms Are (Timing): Gone Suicide/Self Injury Attempted (Context): None Modifying Factor(s): None Severity: None Associated Symptoms: denies: Anger Involuntary Hold By: None Recent travel outside of the [place]: No Additional History Per: Patient Past Medical History Reviewed: Historical Data, Nursing Documentation, Vital Signs Vital Signs: Last Vital Signs Temp 98.2 F 06/15/17 22:47 Pulse 82 06/15/17 22:47 Resp 18 06/15/17 22:47 BP 126/65 06/15/17 22:47 Pulse Ox 98 06/15/17 22:52 - Medical History PMH: Anxiety, Asthma, Bipolar Disorder, Depression, Gastritis, Paranoia, Personality Disorder, Schizophrenia, Seizures, Chronic Pain (abd) Denies: HIV, HTN, Sexually Transmitted Disease Surgical History: - [facility] Procedures APPLICATION OF SPLINT (04/09/14) CL FX REDUC-TIBIA/FIBULA (02/26/13) GROUP PSYCHOTHERAPY (06/01/17) INDIVID PSYCHOTHERAP NEC (12/17/13) INDIVIDUAL PSYCHOTHERAPY, BEHAVIORAL (01/29/16) INDIVIDUAL PSYCHOTHERAPY, COGNITIVE-BEHAVIORAL (07/30/16) INDIVIDUAL PSYCHOTHERAPY, SUPPORTIVE (06/01/17) MEDICATION MANAGEMENT (07/22/16) OTHER GROUP THERAPY (11/05/13) PSYCHIA INTERV/EVAL NEC (06/28/14) Family History: States: No Known Family Hx - Social History Hx Tobacco Use: Yes (heavy smoker) Hx Alcohol Use: No Hx Substance Use: No - Immunization History Hx Tetanus Toxoid Vaccination: No Hx Influenza Vaccination: No Hx Pneumococcal Vaccination: No Review Of Systems Constitutional: Negative for: Fever, Chills Cardiovascular: Negative for: Chest Pain Respiratory: Negative for: Shortness of Breath Gastrointestinal: Negative for: Abdominal Pain Skin: Negative for: Rash Psych: Negative for: Anxiety Physical Exam - Physical Exam Appears: Non-toxic Skin: Warm, Dry Chest: Symmetrical Cardiovascular: Rhythm Regular Respiratory: No Rales, No Rhonchi Gastrointestinal/Abdominal: Soft, No Tenderness Extremity: Bilateral: Atraumatic Neurological/Psych: Oriented x3 Gait: Steady ED Course And Treatment O2 Sat by Pulse Oximetry: 98 Disposition Counseled Patient/Family Regarding: Studies Performed, Diagnosis - Disposition Referrals: [facility] [Outside] Disposition: HOME/ ROUTINE Disposition Time: 22:51 Condition: FAIR Instructions: Schizophrenia (DC) Forms: [facility] (Namibian) - Clinical Impression Clinical Impression: Schizophrenia, chronic condition
== END 2017-06-15 23:13 | disposition home or self-care (01) ==
LOC: C.ER 22:39 → SUPCPDRO 22:39 → C.ER 23:13
DX: F20.9 Schizophrenia, unspecified (principal); F17.210 Nicotine dependence, cigarettes, uncomplicated

== ENCOUNTER 2017-06-16 16:53 | Emergency (ER) | payer MEDICARE ==
[2017-06-16 16:53] VITALS: BMI 23.0
[2017-06-16 16:57] VITALS: BP 133/90; PULSE 99; RESP 18; TEMP 98; O2SAT 99
--- NOTE | 2017-06-16 18:38 | C.PDOC ---
History Of Present Illness Pt is well know to this ED and visits this ED frequently. He is at his baseline. Time Seen by Provider: 06/16/17 17:25 Chief Complaint (Nursing): Medical Clearance History Per: Patient Onset/Duration Of Symptoms: Days (chronic) Current Symptoms Are (Timing): Still Present Severity: Mild Reports Recently: Seen In ED Additional History Per: Prior Records Past Medical History Reviewed: Historical Data, Nursing Documentation, Vital Signs Vital Signs: Last Vital Signs Temp 98 F 06/16/17 16:54 Pulse 99 H 06/16/17 16:54 Resp 18 06/16/17 16:54 BP 133/90 06/16/17 16:54 Pulse Ox 99 06/16/17 16:54 - Medical History PMH: Anxiety, Asthma, Bipolar Disorder, Depression, Gastritis, Paranoia, Personality Disorder, Schizophrenia, Seizures, Chronic Pain (abd) Surgical History: - [facility] Procedures APPLICATION OF SPLINT (04/09/14) CL FX REDUC-TIBIA/FIBULA (02/26/13) GROUP PSYCHOTHERAPY (06/01/17) INDIVID PSYCHOTHERAP NEC (12/17/13) INDIVIDUAL PSYCHOTHERAPY, BEHAVIORAL (01/29/16) INDIVIDUAL PSYCHOTHERAPY, COGNITIVE-BEHAVIORAL (07/30/16) INDIVIDUAL PSYCHOTHERAPY, SUPPORTIVE (06/01/17) MEDICATION MANAGEMENT (07/22/16) OTHER GROUP THERAPY (11/05/13) PSYCHIA INTERV/EVAL NEC (06/28/14) Family History: States: Unknown Family Hx - Social History Hx Tobacco Use: Yes (heavy smoker) Hx Alcohol Use: No Hx Substance Use: No - Immunization History Hx Tetanus Toxoid Vaccination: No Hx Influenza Vaccination: No Hx Pneumococcal Vaccination: No Review Of Systems Except As Marked, All Systems Reviewed And Found Negative. Constitutional: Negative for: Fever Cardiovascular: Negative for: Chest Pain Respiratory: Negative for: Shortness of Breath Gastrointestinal: Negative for: Vomiting, Abdominal Pain Musculoskeletal: Negative for: Neck Pain Skin: Negative for: Rash Neurological: Negative for: Weakness, Numbness Physical Exam - Physical Exam Appears: Non-toxic, No Acute Distress Skin: Normal Color, Warm, Dry, No Rash Head: Atraumatic, Normacephalic Eye(s): bilateral: PERRL, EOMI Neck: Normal ROM, Supple Cardiovascular: Rhythm Regular Respiratory: Normal Breath Sounds, No Accessory Muscle Use Gastrointestinal/Abdominal: Soft, No Tenderness Back: No CVA Tenderness Extremity: Normal ROM Neurological/Psych: Oriented x3, Normal Motor, Normal Sensation ED Course And Treatment O2 Sat by Pulse Oximetry: 99 Pulse Ox Interpretation: Normal Disposition Counseled Patient/Family Regarding: Diagnosis, Need For Followup, Smoking Cessation - Disposition Disposition: HOME/ ROUTINE Disposition Time: 18:38 Condition: STABLE Additional Instructions: Follow up with outpatient mental health. Return to the ER if you develop suicidal or homicidal thoughts, worsening of symptoms or if you have any other concerns. Instructions: Schizophrenia (DC) - Clinical Impression Clinical Impression: Schizophrenia, chronic condition
== END 2017-06-16 19:10 | disposition home or self-care (01) ==
LOC: C.ER 16:53
DX: F20.9 Schizophrenia, unspecified (principal); G89.29 Other chronic pain; F17.210 Nicotine dependence, cigarettes, uncomplicated

== ENCOUNTER 2017-06-17 08:10 | Emergency (ER) | payer MEDICARE ==
[2017-06-17 08:11] VITALS: BMI 23.0
[2017-06-17 08:19] VITALS: BP 134/90; PULSE 90; RESP 16; TEMP 97.5; O2SAT 100
--- NOTE | 2017-06-17 08:26 | C.PDOC ---
History Of Present Illness CO CHRONIC ABD PAIN, PERSIST AUD HALLUCINATIONS. PT WELL KNOWN TO ER, MULT PRIOR ED VISITS FOR SAME. "I JUST WANT TO KNOW WHY I STILL HAVE IT". NO NVD, FEVER, NEW SX SINCE PRIOR ER EVAL. NO SI/SA EXAM NAD ABD NEG PSYCH CALM COOPERATIVE APPROPRIATE INTERACTION. NO SI/SA, +ACTIVE AUD HALLUCINATIONS REMAINDER NEG Time Seen by Provider: 06/17/17 08:13 History Per: Patient History/Exam Limitations: no limitations Onset/Duration Of Symptoms: Days Current Symptoms Are (Timing): Still Present Severity: Moderate Past Medical History Reviewed: Historical Data, Nursing Documentation, Vital Signs Vital Signs: Last Vital Signs Temp 97.5 F L 06/17/17 08:19 Pulse 90 06/17/17 08:19 Resp 16 06/17/17 08:19 BP 134/90 06/17/17 08:19 Pulse Ox 100 06/17/17 13:17 - Medical History PMH: Anxiety, Asthma, Bipolar Disorder, Depression, Gastritis, Paranoia, Personality Disorder, Schizophrenia, Seizures, Chronic Pain (abd) Denies: HIV, HTN, Sexually Transmitted Disease Surgical History: No Surg Hx - [facility] Procedures APPLICATION OF SPLINT (04/09/14) CL FX REDUC-TIBIA/FIBULA (02/26/13) GROUP PSYCHOTHERAPY (06/01/17) INDIVID PSYCHOTHERAP NEC (12/17/13) INDIVIDUAL PSYCHOTHERAPY, BEHAVIORAL (01/29/16) INDIVIDUAL PSYCHOTHERAPY, COGNITIVE-BEHAVIORAL (07/30/16) INDIVIDUAL PSYCHOTHERAPY, SUPPORTIVE (06/01/17) MEDICATION MANAGEMENT (07/22/16) OTHER GROUP THERAPY (11/05/13) PSYCHIA INTERV/EVAL NEC (06/28/14) Family History: States: No Known Family Hx - Social History Hx Tobacco Use: Yes (heavy smoker) Hx Alcohol Use: No Hx Substance Use: No - Immunization History Hx Tetanus Toxoid Vaccination: No Hx Influenza Vaccination: No Hx Pneumococcal Vaccination: No Review Of Systems Except As Marked, All Systems Reviewed And Found Negative. Constitutional: Negative for: Fever, Chills Gastrointestinal: Positive for: Abdominal Pain. Negative for: Nausea, Vomiting , Diarrhea Psych: Positive for: Other (auditory hallucinations). Negative for: Suicidal ideation Physical Exam - Physical Exam Appears: No Acute Distress Skin: Normal Color, Warm Head: Atraumatic, Normacephalic Eye(s): bilateral: Normal Inspection Gastrointestinal/Abdominal: Normal Exam, Soft, No Tenderness, No Guarding, No Rebound Extremity: Normal ROM Neurological/Psych: Other (calm,cooperative, appropriate interaction, active auditory hallucinations,no SI/SA) ED Course And Treatment O2 Sat by Pulse Oximetry: 100 (RA) Pulse Ox Interpretation: Normal Disposition Counseled Patient/Family Regarding: Diagnosis, Need For Followup - Disposition Referrals: YOUR,PMD [Other] Disposition: HOME/ ROUTINE Disposition Time: 08:24 Condition: GOOD Instructions: Schizophrenia, Chronic Pain (DC) Forms: [facility] (Micronesian) - Clinical Impression Clinical Impression: Malingering, Schizophrenia, chronic condition, Chronic abdominal pain - Scribe Statement The provider has reviewed the documentation as recorded by the Leonard Walsh Provider Attestation: All medical record entries made by the Scribe were at my direction and personally dictated by me. I have reviewed the chart and agree that the record accurately reflects my personal performance of the history, physical exam, medical decision making, and the department course for this patient. I have also personally directed, reviewed, and agree with the discharge instructions and disposition.
== END 2017-06-17 08:31 | disposition home or self-care (01) ==
LOC: C.ER 08:10
DX: Z76.5 Malingerer [conscious simulation] (principal); F20.9 Schizophrenia, unspecified; G89.29 Other chronic pain; R10.9 Unspecified abdominal pain; F17.210 Nicotine dependence, cigarettes, uncomplicated

== ENCOUNTER 2017-06-17 22:40 | Emergency (ER) | payer MEDICARE ==
[2017-06-17 22:41] VITALS: BMI 23.0
--- NOTE | 2017-06-18 01:53 | C.PDOC ---
History Of Present Illness The patient presents to the ED requesting a place to sleep for the night. Patient is familiar to the ED and has had many prior visits with similar requests. He denies fever, chills, nausea, vomiting, and has no other complaints at this time. Time Seen by Provider: 06/18/17 01:51 Chief Complaint (Nursing): Medical Clearance History Per: Patient History/Exam Limitations: no limitations Onset/Duration Of Symptoms: Hrs Current Symptoms Are (Timing): Gone Severity: None Pain Scale Rating Of: 0 Recent travel outside of the [place]: No Additional History Per: Patient Past Medical History Reviewed: Historical Data, Nursing Documentation, Vital Signs Vital Signs: Last Vital Signs Temp 98 F 06/18/17 05:33 Pulse 92 H 06/18/17 05:33 Resp 20 06/18/17 05:33 BP 121/82 06/18/17 05:33 Pulse Ox 98 06/18/17 06:25 - Medical History PMH: Anxiety, Asthma, Bipolar Disorder, Depression, Gastritis, Paranoia, Personality Disorder, Schizophrenia, Seizures, Chronic Pain (abd) Denies: HIV, HTN, Sexually Transmitted Disease Surgical History: No Surg Hx - [facility] Procedures APPLICATION OF SPLINT (04/09/14) CL FX REDUC-TIBIA/FIBULA (02/26/13) GROUP PSYCHOTHERAPY (06/01/17) INDIVID PSYCHOTHERAP NEC (12/17/13) INDIVIDUAL PSYCHOTHERAPY, BEHAVIORAL (01/29/16) INDIVIDUAL PSYCHOTHERAPY, COGNITIVE-BEHAVIORAL (07/30/16) INDIVIDUAL PSYCHOTHERAPY, SUPPORTIVE (06/01/17) MEDICATION MANAGEMENT (07/22/16) OTHER GROUP THERAPY (11/05/13) PSYCHIA INTERV/EVAL NEC (06/28/14) Family History: States: No Known Family Hx - Social History Hx Tobacco Use: Yes (heavy smoker) Hx Alcohol Use: No Hx Substance Use: No - Immunization History Hx Tetanus Toxoid Vaccination: No Hx Influenza Vaccination: No Hx Pneumococcal Vaccination: No Review Of Systems Constitutional: Negative for: Fever, Chills Cardiovascular: Negative for: Chest Pain, Palpitations Respiratory: Negative for: Cough, Shortness of Breath Gastrointestinal: Negative for: Nausea, Vomiting, Abdominal Pain Skin: Negative for: Rash, Lesions, Jaundice, Bruising Physical Exam - Physical Exam Appears: Non-toxic, No Acute Distress Skin: Warm, Dry Head: Normacephalic Eye(s): bilateral: Normal Inspection Oral Mucosa: Moist Neck: Supple Chest: Symmetrical, No Deformity, No Tenderness Cardiovascular: Rhythm Regular, No Murmur Respiratory: No Rales, No Rhonchi, No Wheezing Extremity: Normal ROM, Capillary Refill (less than 2 seconds ) Neurological/Psych: Oriented x3 Gait: Steady ED Course And Treatment O2 Sat by Pulse Oximetry: 98 (on RA) Pulse Ox Interpretation: Normal Reevaluation Time: 06:25 Reassessment Condition: Improved Disposition Counseled Patient/Family Regarding: Studies Performed, Diagnosis, Need For Followup - Disposition Referrals: [facility] [Outside] Disposition: HOME/ ROUTINE Disposition Time: 01:52 Condition: FAIR Instructions: Schizophrenia (DC) Forms: [facility] (Macanese) - Clinical Impression Clinical Impression: Schizophrenia - Scribe Statement The provider has reviewed the documentation as recorded by the Scribe (Rosi Chow)
[2017-06-18 05:34] VITALS: BP 121/82; PULSE 92; RESP 20; TEMP 98
[2017-06-18 06:25] VITALS: O2SAT 98
== END 2017-06-18 05:36 | disposition home or self-care (01) ==
LOC: C.ER 22:40
DX: F20.9 Schizophrenia, unspecified (principal); F17.210 Nicotine dependence, cigarettes, uncomplicated

== ENCOUNTER 2017-06-18 20:07 | Emergency (ER) | payer MEDICARE ==
[2017-06-18 20:08] VITALS: BMI 23.0
[2017-06-18 20:41] VITALS: O2SAT 97
--- NOTE | 2017-06-18 20:50 | C.PDOC ---
History Of Present Illness 57 y/o male presents to the ED requesting a place to stay the night. Patient offers no physical complaints. States he is hearing voices, which is chronic for him. No new complaints. Denies any homicidal or suicidal ideation. Time Seen by Provider: 06/18/17 20:49 Chief Complaint (Nursing): Medical Clearance History Per: Patient History/Exam Limitations: no limitations Onset/Duration Of Symptoms: Days Current Symptoms Are (Timing): Still Present Severity: None Pain Scale Rating Of: 0 Reports Recently: Seen In ED Recent travel outside of the [place]: No Past Medical History Reviewed: Historical Data, Nursing Documentation, Vital Signs Vital Signs: Last Vital Signs Temp 98.0 F 06/19/17 00:38 Pulse 85 06/19/17 00:38 Resp 16 06/19/17 00:38 BP 108/76 06/19/17 00:38 Pulse Ox 97 06/19/17 00:38 - Medical History PMH: Anxiety, Asthma, Bipolar Disorder, Depression, Gastritis, Paranoia, Personality Disorder, Schizophrenia, Seizures, Chronic Pain (abd) Denies: HIV, HTN, Sexually Transmitted Disease Surgical History: - [facility] Procedures APPLICATION OF SPLINT (04/09/14) CL FX REDUC-TIBIA/FIBULA (02/26/13) GROUP PSYCHOTHERAPY (06/01/17) INDIVID PSYCHOTHERAP NEC (12/17/13) INDIVIDUAL PSYCHOTHERAPY, BEHAVIORAL (01/29/16) INDIVIDUAL PSYCHOTHERAPY, COGNITIVE-BEHAVIORAL (07/30/16) INDIVIDUAL PSYCHOTHERAPY, SUPPORTIVE (06/01/17) MEDICATION MANAGEMENT (07/22/16) OTHER GROUP THERAPY (11/05/13) PSYCHIA INTERV/EVAL NEC (06/28/14) Family History: States: Unknown Family Hx - Social History Hx Tobacco Use: Yes (heavy smoker) Hx Alcohol Use: No Hx Substance Use: No - Immunization History Hx Tetanus Toxoid Vaccination: No Hx Influenza Vaccination: No Hx Pneumococcal Vaccination: No Review Of Systems Psych: Negative for: Suicidal ideation (or homicidal) Physical Exam - Physical Exam Appears: Non-toxic, No Acute Distress Skin: Warm, Dry Head: Normacephalic Eye(s): bilateral: Normal Inspection Oral Mucosa: Moist Neck: Trachea Midline, Supple Chest: Symmetrical Cardiovascular: Rhythm Regular Respiratory: No Rales, No Rhonchi, No Wheezing Gastrointestinal/Abdominal: Soft, No Tenderness, No Distention Back: Normal Inspection Extremity: Normal ROM Extremity: Bilateral: Atraumatic Pulses: Left Dorsalis Pedis: Normal, Right Dorsalis Pedis: Normal Neurological/Psych: Oriented x3 Gait: Steady ED Course And Treatment O2 Sat by Pulse Oximetry: 97 (RA) Pulse Ox Interpretation: Normal Progress Note: Patient with no complaints and normal exam. Stable for discharge home. Reevaluation Time: 05:34 Reassessment Condition: Improved Disposition Counseled Patient/Family Regarding: Studies Performed, Diagnosis, Need For Followup - Disposition Referrals: [facility] at [facility] [Outside] Disposition: HOME/ ROUTINE Disposition Time: 20:49 Condition: FAIR Forms: [facility] (Azeri), General Discharge Instructions - POA Present On Arrival: None - Clinical Impression Clinical Impression: Schizophrenia - Scribe Statement The provider has reviewed the documentation as recorded by the Scribe (Roselyn Natarajan) Provider Attestation: All medical record entries made by the Scribe were at my direction and personally dictated by me. I have reviewed the chart and agree that the record accurately reflects my personal performance of the history, physical exam, medical decision making, and the department course for this patient. I have also personally directed, reviewed, and agree with the discharge instructions and disposition.
[2017-06-19 00:39] VITALS: RESP 16
[2017-06-19 05:50] VITALS: BP 110/72; PULSE 80; TEMP 98.1
== END 2017-06-19 04:30 | disposition home or self-care (01) ==
LOC: C.ER 20:07
DX: F20.9 Schizophrenia, unspecified (principal)

== ENCOUNTER 2017-06-20 16:34 | Emergency (ER) | payer MEDICARE ==
[2017-06-20 16:35] VITALS: BMI 23.0
--- NOTE | 2017-06-20 17:12 | C.PDOC ---
History Of Present Illness 57 y/o male, whose PMH includes schizophrenia and is well known to the ED, presents to the ED looking for a place to sleep since he is homeless. Patient is currently asymptomatic. Time Seen by Provider: 06/20/17 16:36 Chief Complaint (Nursing): Medical Clearance History Per: Patient Current Symptoms Are (Timing): Gone Past Medical History Reviewed: Historical Data, Nursing Documentation, Vital Signs Vital Signs: Last Vital Signs Temp 97.9 F 06/20/17 23:14 Pulse 83 06/20/17 23:14 Resp 18 06/20/17 23:14 BP 133/77 06/20/17 23:14 Pulse Ox 99 06/20/17 23:14 - Medical History PMH: Anxiety, Asthma, Bipolar Disorder, Depression, Gastritis, Paranoia, Personality Disorder, Schizophrenia, Seizures, Chronic Pain (abd) Denies: HIV, HTN, Sexually Transmitted Disease Surgical History: - [facility] Procedures APPLICATION OF SPLINT (04/09/14) CL FX REDUC-TIBIA/FIBULA (02/26/13) GROUP PSYCHOTHERAPY (06/01/17) INDIVID PSYCHOTHERAP NEC (12/17/13) INDIVIDUAL PSYCHOTHERAPY, BEHAVIORAL (01/29/16) INDIVIDUAL PSYCHOTHERAPY, COGNITIVE-BEHAVIORAL (07/30/16) INDIVIDUAL PSYCHOTHERAPY, SUPPORTIVE (06/01/17) MEDICATION MANAGEMENT (07/22/16) OTHER GROUP THERAPY (11/05/13) PSYCHIA INTERV/EVAL NEC (06/28/14) Family History: States: Unknown Family Hx - Social History Hx Tobacco Use: Yes (heavy smoker) Hx Alcohol Use: No Hx Substance Use: No - Immunization History Hx Tetanus Toxoid Vaccination: No Hx Influenza Vaccination: No Hx Pneumococcal Vaccination: No Review Of Systems Except As Marked, All Systems Reviewed And Found Negative. Cardiovascular: Negative for: Chest Pain Respiratory: Negative for: Shortness of Breath Psych: Positive for: Other (intoxication) Physical Exam - Physical Exam Appears: Well, Toxic, No Acute Distress Skin: Normal Color, Warm, Dry Head: Atraumatic, Normacephalic Eye(s): bilateral: Normal Inspection, PERRL, EOMI Cardiovascular: Rhythm Regular Respiratory: Normal Breath Sounds, No Rales, No Rhonchi, No Wheezing Gastrointestinal/Abdominal: Normal Exam, Bowel Sounds (active), Soft, No Tenderness, No Distention, No Guarding, No Rebound Neurological/Psych: Oriented x3 ED Course And Treatment O2 Sat by Pulse Oximetry: 100 (room air) Pulse Ox Interpretation: Normal Medical Decision Making Medical Decision Making: Plan: -- Disposition 1100: pt observed numerous times sleeping in nad. Disposition - Disposition Disposition: HOME/ ROUTINE Disposition Time: 01:00 Condition: STABLE Forms: [facility] (Khmer) - Clinical Impression Clinical Impression: Homeless - Scribe Statement The provider has reviewed the documentation as recorded by the Leonard Coreyibe Attestation: Saida Valle Attestation: All medical record entries made by the Madhavibe were at my direction and personally dictated by me. I have reviewed the chart and agree that the record accurately reflects my personal performance of the history, physical exam, medical decision making, and the department course for this patient. I have also personally directed, reviewed, and agree with the discharge instructions and disposition.
[2017-06-20 23:14] VITALS: BP 133/77; PULSE 83; RESP 18; TEMP 97.9
[2017-06-21 13:12] VITALS: O2SAT 100
== END 2017-06-20 23:20 | disposition home or self-care (01) ==
LOC: C.ER 16:34
DX: Z59.0 Homelessness (principal)

== ENCOUNTER 2017-06-22 18:40 | Emergency (ER) | payer MEDICARE ==
[2017-06-22 18:41] VITALS: BMI 23.0
[2017-06-22 18:59] VITALS: BP 131/77; PULSE 110; RESP 20; TEMP 98.2; O2SAT 99
--- NOTE | 2017-06-22 19:48 | C.PDOC ---
History Of Present Illness 57 y/o male with a past medical history of schizophrenia presents to the ED complaining of hearing voices, ongoing for years but worsened the past 3 days. States the voices are telling him to harm himself and occasionally others. Patient reports his medications, Depakote and Seroquel, are currently at his sister's home and he has been unable to access them. Of note, patient with 21 visits in the ED for the same complaint since the beginning of the month. PMD: none Time Seen by Provider: 06/22/17 19:38 Chief Complaint (Nursing): Abdominal Pain Past Medical History Vital Signs: Last Vital Signs Temp 98.2 F 06/22/17 18:57 Pulse 110 H 06/22/17 18:57 Resp 20 06/22/17 18:57 BP 131/77 06/22/17 18:57 Pulse Ox 99 06/22/17 18:57 - Medical History PMH: Anxiety, Asthma, Bipolar Disorder, Depression, Gastritis, Paranoia, Personality Disorder, Schizophrenia, Seizures, Chronic Pain (abd) Denies: HIV, HTN, Sexually Transmitted Disease Surgical History: - [facility] Procedures APPLICATION OF SPLINT (04/09/14) CL FX REDUC-TIBIA/FIBULA (02/26/13) GROUP PSYCHOTHERAPY (06/01/17) INDIVID PSYCHOTHERAP NEC (12/17/13) INDIVIDUAL PSYCHOTHERAPY, BEHAVIORAL (01/29/16) INDIVIDUAL PSYCHOTHERAPY, COGNITIVE-BEHAVIORAL (07/30/16) INDIVIDUAL PSYCHOTHERAPY, SUPPORTIVE (06/01/17) MEDICATION MANAGEMENT (07/22/16) OTHER GROUP THERAPY (11/05/13) PSYCHIA INTERV/EVAL NEC (06/28/14) Family History: States: Unknown Family Hx - Social History Hx Tobacco Use: Yes (heavy smoker) Hx Alcohol Use: No Hx Substance Use: No - Immunization History Hx Tetanus Toxoid Vaccination: No Hx Influenza Vaccination: No Hx Pneumococcal Vaccination: No ED Course And Treatment O2 Sat by Pulse Oximetry: 99 Disposition - Disposition
[2017-06-22 19:54] LABS: BASO # 0.1 K/uL (0.0-0.2); BASO % 0.9 % (0.0-2.0); EOS # 0.1 K/uL (0.0-0.7); EOS % 1.7 % (0.0-4.0); HEMOGLOBIN 14.1 g/dL (12.0-18.0); LYMPH # 1.9 K/uL (1.0-4.3); LYMPH % 24.3 % (20.0-40.0); MEAN CELL VOLUME 88.9 fL (80.0-94.0); MEAN CORPUSCULAR HEMOGLOBIN 30.4 pg (27.0-31.0); MEAN CORPUSCULAR HGB CONC 34.2 g/dL (33.0-37.0); MEAN PLATELET VOLUME 7.7 fL (7.2-11.7); MONO # 0.5 K/uL (0.0-0.8); MONO % 6.9 % (0.0-10.0); NEUT # 5.2 K/uL (1.8-7.0); NEUT % 66.2 % (50.0-75.0); RBC 4.65 Mil/uL (4.40-5.90); RED CELL DISTRIBUTION WIDTH 13.4 % (11.5-14.5); WHITE BLOOD COUNT 7.9 K/uL (4.8-10.8)
--- NOTE | 2017-06-22 19:54 | C.PDOC ---
History Of Present Illness 57 y/o male with a past medical history of schizophrenia presents to the ED complaining of hearing voices, ongoing for years but worsened the past 3 days. States the voices are telling him to harm himself and occasionally others. Patient reports his medications, Depakote and Seroquel, are currently at his sister's home and he has been unable to access them. Of note, patient with 21 visits in the ED for the same complaint since the beginning of the month. PMD: none Time Seen by Provider: 06/22/17 19:38 Chief Complaint (Nursing): Abdominal Pain History Per: Patient History/Exam Limitations: no limitations Onset/Duration Of Symptoms: Days (for years) Current Symptoms Are (Timing): Still Present Associated Symptoms: Other (auditory hallucinations) Additional History Per: Prior Records Past Medical History Reviewed: Historical Data, Nursing Documentation, Vital Signs Vital Signs: Last Vital Signs Temp 98.2 F 06/22/17 18:57 Pulse 110 H 06/22/17 18:57 Resp 20 06/22/17 18:57 BP 131/77 06/22/17 18:57 Pulse Ox 99 06/22/17 23:42 - Medical History PMH: Anxiety, Asthma, Bipolar Disorder, Depression, Gastritis, Paranoia, Personality Disorder, Schizophrenia, Seizures, Chronic Pain (abd) Denies: HIV, HTN, Sexually Transmitted Disease Surgical History: - [facility] Procedures APPLICATION OF SPLINT (04/09/14) CL FX REDUC-TIBIA/FIBULA (02/26/13) GROUP PSYCHOTHERAPY (06/01/17) INDIVID PSYCHOTHERAP NEC (12/17/13) INDIVIDUAL PSYCHOTHERAPY, BEHAVIORAL (01/29/16) INDIVIDUAL PSYCHOTHERAPY, COGNITIVE-BEHAVIORAL (07/30/16) INDIVIDUAL PSYCHOTHERAPY, SUPPORTIVE (06/01/17) MEDICATION MANAGEMENT (07/22/16) OTHER GROUP THERAPY (11/05/13) PSYCHIA INTERV/EVAL NEC (06/28/14) Family History: States: Unknown Family Hx - Social History Hx Tobacco Use: Yes (heavy smoker) Hx Alcohol Use: No Hx Substance Use: No - Immunization History Hx Tetanus Toxoid Vaccination: No Hx Influenza Vaccination: No Hx Pneumococcal Vaccination: No Review Of Systems Except As Marked, All Systems Reviewed And Found Negative. Psych: Positive for: Other (auditory hallucinations) Physical Exam - Physical Exam Appears: Non-toxic, No Acute Distress Skin: Normal Color, Warm, Dry Head: Atraumatic, Normacephalic Eye(s): bilateral: Normal Inspection, PERRL, EOMI Nose: Normal Oral Mucosa: Moist Neck: Normal ROM, Supple Chest: Symmetrical Cardiovascular: Rhythm Regular, No Murmur Respiratory: Normal Breath Sounds, No Accessory Muscle Use Gastrointestinal/Abdominal: Soft, No Tenderness, No Mass, No Guarding Extremity: Bilateral: Atraumatic, Normal Color And Temperature, Normal ROM Neurological/Psych: Oriented x3, Normal Speech, Other (Calm and cooperative) Gait: Steady ED Course And Treatment - Laboratory Results Result Diagrams: 06/22/17 19:50 06/22/17 19:50 O2 Sat by Pulse Oximetry: 99 (RA) Pulse Ox Interpretation: Normal Medical Decision Making Medical Decision Making: Time: 19:35 Initial Plan: --EKG --Urine drug screen --Alcohol serum --CMP --CBC w/ differential --Urinalysis --Crisis will see patient Blood work reviewed, and is grossly normal While awaiting crisis evaluation,pt eloped from the ED without any notification to medical staff Disposition - Disposition Disposition: ELOPEMENT - ER ONLY Disposition Time: 05:08 Condition: GOOD Forms: [facility] (Solomon Islander) - Clinical Impression Clinical Impression: Schizophrenia, Homeless, Malingering - Scribe Statement The provider has reviewed the documentation as recorded by the Scribe (Roselyn Natarajan) Provider Attestation: All medical record entries made by the Scribe were at my direction and personally dictated by me. I have reviewed the chart and agree that the record accurately reflects my personal performance of the history, physical exam, medical decision making, and the department course for this patient. I have also personally directed, reviewed, and agree with the discharge instructions and disposition.
[2017-06-22 20:07] LABS: ALB/GLOB RATIO 1.2 (1.0-2.1); ALBUMIN 4.1 g/dL (3.5-5.0); ALT/SGPT 29 U/L (21-72); AST/SGOT 26 U/L (17-59); BLOOD UREA NITROGEN 16 mg/dL (9-20); GFR AFRICAN-AMERICAN > 60; GFR NON-AFRICAN AMERICAN > 60
--- NOTE | 2017-06-26 22:47 | CARD ---
APPROVED REPORT EKG Measurement Heart [id number] <Conclusion> Normal sinus rhythm Left axis deviation Septal infarct, age undetermined Abnormal ECG
== END 2017-06-22 21:59 | disposition left against medical advice (07) ==
LOC: C.ER 18:40
DX: F20.9 Schizophrenia, unspecified (principal); Z76.5 Malingerer [conscious simulation]; Z59.0 Homelessness

== ENCOUNTER 2017-06-23 10:26 | Emergency (ER) | payer MEDICARE ==
[2017-06-23 10:26] VITALS: BMI 23.0
[2017-06-23 10:45] VITALS: BP 121/76; PULSE 75; RESP 18; TEMP 98.4
--- NOTE | 2017-06-23 11:10 | C.PDOC ---
History Of Present Illness 57 year old male presents to the ED for evaluation of abdominal pain which began earlier today. Patient wants to sleep. Patient is familiar to the ED and has had many prior evaluation for similar complaints. Patient denies fever, chills, nausea, vomiting and has no other complaints at this time. Time Seen by Provider: 06/23/17 10:56 Chief Complaint (Nursing): Abdominal Pain History Per: Patient History/Exam Limitations: no limitations Current Symptoms Are (Timing): Still Present Location Of Pain/Discomfort: Diffuse Radiation Of Pain To:: None Quality Of Discomfort: "Pain" Associated Symptoms: denies: Fever, Chills, Nausea, Vomiting Additional History Per: Patient Past Medical History Reviewed: Historical Data, Nursing Documentation, Vital Signs Vital Signs: Last Vital Signs Temp 98.4 F 06/23/17 10:39 Pulse 75 06/23/17 10:39 Resp 18 06/23/17 10:39 BP 121/76 06/23/17 10:39 Pulse Ox - Medical History PMH: Anxiety, Asthma, Bipolar Disorder, Depression, Gastritis, Paranoia, Personality Disorder, Schizophrenia, Seizures, Chronic Pain (abd) Surgical History: No Surg Hx - [facility] Procedures APPLICATION OF SPLINT (04/09/14) CL FX REDUC-TIBIA/FIBULA (02/26/13) GROUP PSYCHOTHERAPY (06/01/17) INDIVID PSYCHOTHERAP NEC (12/17/13) INDIVIDUAL PSYCHOTHERAPY, BEHAVIORAL (01/29/16) INDIVIDUAL PSYCHOTHERAPY, COGNITIVE-BEHAVIORAL (07/30/16) INDIVIDUAL PSYCHOTHERAPY, SUPPORTIVE (06/01/17) MEDICATION MANAGEMENT (07/22/16) OTHER GROUP THERAPY (11/05/13) PSYCHIA INTERV/EVAL NEC (06/28/14) Family History: States: Unknown Family Hx - Social History Hx Tobacco Use: Yes (heavy smoker) Hx Alcohol Use: No Hx Substance Use: No - Immunization History Hx Tetanus Toxoid Vaccination: No Hx Influenza Vaccination: No Hx Pneumococcal Vaccination: No Review Of Systems Constitutional: Negative for: Fever, Chills Gastrointestinal: Positive for: Abdominal Pain. Negative for: Nausea, Vomiting Physical Exam - Physical Exam Appears: Non-toxic, No Acute Distress Skin: Normal Color, Warm, Dry Head: Atraumatic, Normacephalic Eye(s): bilateral: Normal Inspection Oral Mucosa: Moist Neck: Supple Chest: Symmetrical, No Tenderness Cardiovascular: Rhythm Regular, No Murmur Respiratory: Normal Breath Sounds, No Rales, No Rhonchi, No Wheezing Gastrointestinal/Abdominal: Soft, No Tenderness, No Guarding, No Rebound Extremity: Normal ROM Neurological/Psych: Oriented x3, Normal Speech Gait: Steady Medical Decision Making Medical Decision Making: Patient observed to sleep for about an hour. When approached he just rolls over. Patient in no distress. He can be discharged. Disposition Counseled Patient/Family Regarding: Need For Followup - Disposition Referrals: [facility] [Outside] [facility] [Outside] Disposition: HOME/ ROUTINE Disposition Time: 11:40 Condition: GOOD Instructions: Schizophrenia (DC) Forms: [facility] (Malay) - POA Present On Arrival: None - Clinical Impression Clinical Impression: Schizoaffective disorder - PA / UNDER BASTER / Resident Statement MD/DO has reviewed & agrees with the documentation as recorded. - Scribe Statement The provider has reviewed the documentation as recorded by the Scribe (Rosi Chow) All medical record entries made by the Scribe were at my direction and personally dictated by me. I have reviewed the chart and agree that the record accurately reflects my personal performance of the history, physical exam, medical decision making, and the department course for this patient. I have also personally directed, reviewed, and agree with the discharge instructions and disposition.
== END 2017-06-23 11:43 | disposition home or self-care (01) ==
LOC: C.ER 10:26
DX: F25.9 Schizoaffective disorder, unspecified (principal)

== ENCOUNTER 2017-06-23 22:50 | Emergency (ER) | payer MEDICARE ==
[2017-06-23 22:51] VITALS: BMI 23.0
[2017-06-23 23:21] VITALS: BP 133/83; PULSE 96; RESP 22; TEMP 98.5; O2SAT 98
--- NOTE | 2017-06-23 23:39 | C.PDOC ---
History Of Present Illness <Jonelle Denise - Last Filed: 06/23/17 23:28> <Hermilo Bob - Last Filed: 06/24/17 00:59> 57 year old male well known to the ED presents to the ED c/o of auditory hallucinations. Patient has multiple visit in the past for similar complaints. Patient denies SI/HI, CP, SOB, abdominal pain. (Hermilo Bob) <Jonelle Denise - Last Filed: 06/23/17 23:28> History Per: Patient History/Exam Limitations: no limitations Onset/Duration Of Symptoms: Days Current Symptoms Are (Timing): Still Present Suicide/Self Injury Attempted (Context): None Modifying Factor(s): None Severity: None Associated Symptoms: Paranoia. denies: Depression, Suicidal Thoughts, Suicidal Plan Recent travel outside of the [place]: No Additional History Per: Patient <Hermilo Bob - Last Filed: 06/24/17 00:59> Time Seen by Provider: 06/23/17 23:28 Chief Complaint (Nursing): Psychiatric Evaluation Past Medical History - Medical History PMH: Anxiety, Asthma, Bipolar Disorder, Depression, Gastritis, Paranoia, Personality Disorder, Schizophrenia, Seizures, Chronic Pain (abd) Denies: HIV, HTN, Sexually Transmitted Disease Surgical History: Family History: States: Unknown Family Hx - Social History Hx Tobacco Use: Yes (heavy smoker) Hx Alcohol Use: No Hx Substance Use: No - Immunization History Hx Tetanus Toxoid Vaccination: No Hx Influenza Vaccination: No Hx Pneumococcal Vaccination: No <Jonelle Denise - Last Filed: 06/23/17 23:28> Reviewed: Historical Data, Nursing Documentation, Vital Signs - Medical History PMH: Anxiety, Asthma, Bipolar Disorder, Depression, Paranoia, Personality Disorder, Schizophrenia, Seizures, Chronic Pain Surgical History: No Surg Hx Family History: States: Unknown Family Hx - Social History Hx Tobacco Use: Yes Hx Alcohol Use: No Hx Substance Use: No - Immunization History Hx Tetanus Toxoid Vaccination: No Hx Influenza Vaccination: No Hx Pneumococcal Vaccination: No <Hermilo Bob - Last Filed: 06/24/17 00:59> Vital Signs: Last Vital Signs Temp 98.5 F 06/23/17 23:18 Pulse 96 H 06/23/17 23:18 Resp 22 06/23/17 23:18 BP 133/83 06/23/17 23:18 Pulse Ox 98 06/24/17 00:43 - [facility] Procedures APPLICATION OF SPLINT (04/09/14) CL FX REDUC-TIBIA/FIBULA (02/26/13) GROUP PSYCHOTHERAPY (06/01/17) INDIVID PSYCHOTHERAP NEC (12/17/13) INDIVIDUAL PSYCHOTHERAPY, BEHAVIORAL (01/29/16) INDIVIDUAL PSYCHOTHERAPY, COGNITIVE-BEHAVIORAL (07/30/16) INDIVIDUAL PSYCHOTHERAPY, SUPPORTIVE (06/01/17) MEDICATION MANAGEMENT (07/22/16) OTHER GROUP THERAPY (11/05/13) PSYCHIA INTERV/EVAL NEC (06/28/14) Review Of Systems Constitutional: Negative for: Fever, Chills Cardiovascular: Negative for: Chest Pain, Palpitations Respiratory: Negative for: Cough, Shortness of Breath Gastrointestinal: Negative for: Nausea, Abdominal Pain Skin: Negative for: Rash Neurological: Negative for: Weakness, Numbness <Hermilo Bob - Last Filed: 06/24/17 00:59> Physical Exam - Physical Exam Appears: Non-toxic, No Acute Distress Skin: Normal Color, Warm, Dry Head: Atraumatic, Normacephalic Eye(s): bilateral: Normal Inspection Nose: No Discharge Oral Mucosa: Moist Neck: Normal ROM, Supple Chest: Symmetrical Cardiovascular: Rhythm Regular, No Murmur Respiratory: Normal Breath Sounds, No Rales, No Rhonchi, No Wheezing Gastrointestinal/Abdominal: Soft, No Tenderness, No Guarding, No Rebound Extremity: Normal ROM, No Tenderness, No Swelling Neurological/Psych: Oriented x3 Gait: Steady <Hermilo Bob - Last Filed: 06/24/17 00:59> ED Course And Treatment O2 Sat by Pulse Oximetry: 98 <Jonelle Denise - Last Filed: 06/23/17 23:28> O2 Sat by Pulse Oximetry: 98 (On RA) Pulse Ox Interpretation: Normal Reevaluation Time: 01:00 Reassessment Condition: Improved <Hermilo Bob Last Filed: 06/24/17 00:59> Disposition <Jonelle Denise - Last Filed: 06/23/17 23:28> - Disposition Disposition Time: 01:00 <Hermilo Bob Last Filed: 06/24/17 00:59> - Disposition Condition: GOOD Forms: [facility] (Kittitian) - Clinical Impression Clinical Impression: Malingering <Jonelle Denise - Last Filed: 06/23/17 23:28> - PA / RAILROAD MAINTENANCE CLERK / Resident Statement MD/DO has reviewed & agrees with the documentation as recorded. - Scribe Statement The provider has reviewed the documentation as recorded by the Scribe <Hermilo Bob - Last Filed: 06/24/17 00:59> - Scribe Statement Jarod Jett All medical record entries made by the Scribe were at my direction and personally dictated by me. I have reviewed the chart and agree that the record accurately reflects my personal performance of the history, physical exam, medical decision making, and the department course for this patient. I have also personally directed, reviewed, and agree with the discharge instructions and disposition. (Hermilo Bob) Physician Patient Turnover Patient Signed Over To: Jonelle Denise Handoff Comments: dispo in AM <Hermilo Bob - Last Filed: 06/24/17 00:59>
== END 2017-06-24 02:38 | disposition left against medical advice (07) ==
LOC: C.ER 22:50
DX: Z76.5 Malingerer [conscious simulation] (principal)

== ENCOUNTER 2017-06-24 14:57 | Emergency (ER) | payer MEDICARE ==
[2017-06-24 14:58] VITALS: BMI 23.0
--- NOTE | 2017-06-24 16:27 | C.PDOC ---
History Of Present Illness 57 y/o male presents to the ER c/o hearing voices that are telling him to hurt himself. This is the baseline for the patient who has visited the ER multiple times in the past. Patient denies having any active physical complaints. Time Seen by Provider: 06/24/17 15:16 Chief Complaint (Nursing): Psychiatric Evaluation History Per: Patient History/Exam Limitations: no limitations Onset/Duration Of Symptoms: Days Current Symptoms Are (Timing): Still Present Severity: Moderate Past Medical History Reviewed: Historical Data, Nursing Documentation, Vital Signs Vital Signs: Last Vital Signs Temp 98.1 F 06/24/17 17:35 Pulse 80 06/24/17 17:35 Resp 18 06/24/17 17:35 BP 119/81 06/24/17 17:35 Pulse Ox 98 06/24/17 17:35 - Medical History PMH: Anxiety, Asthma, Bipolar Disorder, Depression, Gastritis, Paranoia, Personality Disorder, Schizophrenia, Seizures (pt has a history of Seizures.), Chronic Pain Denies: Diabetes, Hepatitis, HIV, HTN, Sexually Transmitted Disease Surgical History: No Surg Hx - [facility] Procedures APPLICATION OF SPLINT (04/09/14) CL FX REDUC-TIBIA/FIBULA (02/26/13) GROUP PSYCHOTHERAPY (06/01/17) INDIVID PSYCHOTHERAP NEC (12/17/13) INDIVIDUAL PSYCHOTHERAPY, BEHAVIORAL (01/29/16) INDIVIDUAL PSYCHOTHERAPY, COGNITIVE-BEHAVIORAL (07/30/16) INDIVIDUAL PSYCHOTHERAPY, SUPPORTIVE (06/01/17) MEDICATION MANAGEMENT (07/22/16) OTHER GROUP THERAPY (11/05/13) PSYCHIA INTERV/EVAL NEC (06/28/14) Family History: States: No Known Family Hx - Social History Hx Tobacco Use: Yes Hx Alcohol Use: No Hx Substance Use: No - Immunization History Hx Tetanus Toxoid Vaccination: No Hx Influenza Vaccination: No Hx Pneumococcal Vaccination: No Review Of Systems Constitutional: Negative for: Fever, Chills Gastrointestinal: Negative for: Nausea, Vomiting, Abdominal Pain Neurological: Negative for: Weakness, Numbness Psych: Negative for: Suicidal ideation Physical Exam - Physical Exam Appears: No Acute Distress Skin: Warm, Dry Head: Atraumatic, Normacephalic Eye(s): bilateral: Normal Inspection Neck: Supple Chest: Symmetrical Cardiovascular: Rhythm Regular, No Murmur Respiratory: Normal Breath Sounds, No Rales, No Rhonchi, No Wheezing Gastrointestinal/Abdominal: Normal Exam, Soft, No Tenderness Neurological/Psych: Oriented x3, Normal Speech, Normal Motor, Normal Sensation ED Course And Treatment O2 Sat by Pulse Oximetry: 99 (RA) Pulse Ox Interpretation: Normal Medical Decision Making Medical Decision Making: Progress: Case d/c with Crisis. Crisis evaluated patient and found that no acute intervention was needed. Disposition - Disposition Referrals: [place] [facility] [Outside] Disposition: HOME/ ROUTINE Disposition Time: 17:18 Condition: GOOD Additional Instructions: Follow up in [facility] for counseling. Follow up in medical clinic. 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 - Scribe Statement The provider has reviewed the documentation as recorded by the Scribe Red Walsh Provider Attestation All medical record entries made by the Scribe were at my direction and personally dictated by me. I have reviewed the chart and agree that the record accurately reflects my personal performance of the history, physical exam, medical decision making, and the department course for this patient. I have also personally directed, reviewed, and agree with the discharge instructions and disposition.
[2017-06-24 17:36] VITALS: BP 119/81; PULSE 80; RESP 18; TEMP 98.1
[2017-06-24 19:15] VITALS: O2SAT 99
== END 2017-06-24 17:40 | disposition home or self-care (01) ==
LOC: C.ER 14:57
DX: F20.9 Schizophrenia, unspecified (principal)

== ENCOUNTER 2017-06-27 01:02 | Emergency (ER) | payer MEDICARE ==
[2017-06-27 01:03] VITALS: BMI 23.0
[2017-06-27 01:19] VITALS: O2SAT 98
--- NOTE | 2017-06-27 02:27 | C.PDOC ---
History Of Present Illness 57 years old homeless male presents to ED stating he is looking for a place to stay for the night. Patient is well known to ED with multiple ER visits. Denies any physical complaints. Time Seen by Provider: 06/27/17 01:20 Chief Complaint (Nursing): Medical Clearance History Per: Patient History/Exam Limitations: no limitations Onset/Duration Of Symptoms: Hrs Current Symptoms Are (Timing): Still Present Recent travel outside of the [place]: No Past Medical History Reviewed: Historical Data, Nursing Documentation, Vital Signs Vital Signs: Last Vital Signs Temp 98 F 06/27/17 03:38 Pulse 76 06/27/17 03:38 Resp 20 06/27/17 03:38 BP 106/70 06/27/17 03:38 Pulse Ox 98 06/27/17 05:06 - Medical History PMH: Anxiety, Asthma, Bipolar Disorder, Depression, Gastritis, Paranoia, Personality Disorder, Schizophrenia, Seizures (pt has a history of Seizures.), Chronic Pain Surgical History: - [facility] Procedures APPLICATION OF SPLINT (04/09/14) CL FX REDUC-TIBIA/FIBULA (02/26/13) GROUP PSYCHOTHERAPY (06/01/17) INDIVID PSYCHOTHERAP NEC (12/17/13) INDIVIDUAL PSYCHOTHERAPY, BEHAVIORAL (01/29/16) INDIVIDUAL PSYCHOTHERAPY, COGNITIVE-BEHAVIORAL (07/30/16) INDIVIDUAL PSYCHOTHERAPY, SUPPORTIVE (06/01/17) MEDICATION MANAGEMENT (07/22/16) OTHER GROUP THERAPY (11/05/13) PSYCHIA INTERV/EVAL NEC (06/28/14) Family History: States: Unknown Family Hx - Social History Hx Tobacco Use: Yes Hx Alcohol Use: No Hx Substance Use: No - Immunization History Hx Tetanus Toxoid Vaccination: No Hx Influenza Vaccination: No Hx Pneumococcal Vaccination: No Review Of Systems Constitutional: Negative for: Fever, Chills Cardiovascular: Negative for: Chest Pain Gastrointestinal: Negative for: Nausea, Vomiting, Abdominal Pain, Diarrhea Neurological: Negative for: Weakness, Numbness Psych: Negative for: Suicidal ideation Physical Exam - Physical Exam Appears: Well, Non-toxic, No Acute Distress Skin: Normal Color, Warm, Dry Head: Atraumatic, Normacephalic Eye(s): bilateral: Normal Inspection Oral Mucosa: Moist Neck: Supple Chest: Symmetrical, No Tenderness Cardiovascular: Rhythm Regular Respiratory: Normal Breath Sounds, No Decreased Breath Sounds, No Rales, No Rhonchi, No Wheezing Gastrointestinal/Abdominal: Soft, No Tenderness, No Distention Extremity: Normal ROM Neurological/Psych: Oriented x3, Normal Speech, Normal Cognition ED Course And Treatment O2 Sat by Pulse Oximetry: 98 (RA) Pulse Ox Interpretation: Normal Disposition Counseled Patient/Family Regarding: Need For Followup - Disposition Referrals: [place] [facility] [Outside] Disposition: HOME/ ROUTINE Disposition Time: 05:25 Condition: STABLE Instructions: Schizophrenia Forms: [facility] (American) - POA Present On Arrival: None - Clinical Impression Clinical Impression: Homeless - 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 - Scribe Statement The provider has reviewed the documentation as recorded by the Leonard Hernández All medical record entries made by the Madhavibalexis were at my direction and personally dictated by me. I have reviewed the chart and agree that the record accurately reflects my personal performance of the history, physical exam, medical decision making, and the department course for this patient. I have also personally directed, reviewed, and agree with the discharge instructions and disposition.
[2017-06-27 03:40] VITALS: BP 106/70; PULSE 76; RESP 20; TEMP 98
== END 2017-06-27 05:27 | disposition home or self-care (01) ==
LOC: C.ER 01:02
DX: Z59.0 Homelessness (principal)

== ENCOUNTER 2017-06-27 21:30 | Emergency (ER) | payer MEDICARE ==
[2017-06-27 21:30] VITALS: BMI 23.0
[2017-06-27 21:46] VITALS: BP 128/72; PULSE 82; RESP 20; TEMP 98; O2SAT 97
--- NOTE | 2017-06-27 21:54 | C.PDOC ---
History Of Present Illness 57 year old male with a past medical history of schizophrenia presents to the ED complaining of hearing voices, which is chronic per patient. Also requesting a sandwich and somewhere to rest. Patient seen earlier today for the same complaint, and was discharged home. He denies any current suicidal or homicidal ideation. Time Seen by Provider: 06/27/17 21:51 Chief Complaint (Nursing): Medical Clearance History Per: Patient History/Exam Limitations: no limitations Onset/Duration Of Symptoms: Waxing/Waning Current Symptoms Are (Timing): Still Present Past Medical History Reviewed: Historical Data, Nursing Documentation, Vital Signs Vital Signs: Last Vital Signs Temp 98 F 06/27/17 21:40 Pulse 82 06/27/17 21:40 Resp 20 06/27/17 21:40 BP 128/72 06/27/17 21:40 Pulse Ox 97 06/27/17 21:55 - Medical History PMH: Anxiety, Asthma, Bipolar Disorder, Depression, Gastritis, Paranoia, Personality Disorder, Schizophrenia, Seizures (pt has a history of Seizures.), Chronic Pain Denies: HIV, HTN, Sexually Transmitted Disease Surgical History: - [facility] Procedures APPLICATION OF SPLINT (04/09/14) CL FX REDUC-TIBIA/FIBULA (02/26/13) GROUP PSYCHOTHERAPY (06/01/17) INDIVID PSYCHOTHERAP NEC (12/17/13) INDIVIDUAL PSYCHOTHERAPY, BEHAVIORAL (01/29/16) INDIVIDUAL PSYCHOTHERAPY, COGNITIVE-BEHAVIORAL (07/30/16) INDIVIDUAL PSYCHOTHERAPY, SUPPORTIVE (06/01/17) MEDICATION MANAGEMENT (07/22/16) OTHER GROUP THERAPY (11/05/13) PSYCHIA INTERV/EVAL NEC (06/28/14) Family History: States: Unknown Family Hx - Social History Hx Tobacco Use: Yes Hx Alcohol Use: No Hx Substance Use: No - Immunization History Hx Tetanus Toxoid Vaccination: No Hx Influenza Vaccination: No Hx Pneumococcal Vaccination: No Review Of Systems Except As Marked, All Systems Reviewed And Found Negative. Psych: Negative for: Suicidal ideation (or homicidal) Physical Exam - Physical Exam Appears: Non-toxic, No Acute Distress Skin: Normal Color, Warm, Dry Head: Atraumatic, Normacephalic Eye(s): bilateral: Normal Inspection, PERRL, EOMI Nose: Normal Chest: Symmetrical Cardiovascular: Rhythm Regular Respiratory: Normal Breath Sounds, No Accessory Muscle Use Extremity: Bilateral: Atraumatic, Normal Color And Temperature, Normal ROM Neurological/Psych: Oriented x3, Normal Speech ED Course And Treatment O2 Sat by Pulse Oximetry: 97 (RA) Pulse Ox Interpretation: Normal Medical Decision Making Medical Decision Making: Impression: 57 y/o with schizophrenia Patient is medically stable and requires no further intervention in the ED at this time. Counseled regarding diagnosis and the need for follow up with outpatient psychiatric services. There is agreement to discharge plan. Disposition Counseled Patient/Family Regarding: Diagnosis, Need For Followup - Disposition Referrals: [facility] [Outside] [facility] [Outside] Disposition: HOME/ ROUTINE Disposition Time: 21:54 Condition: GOOD Instructions: Schizophrenia Forms: [facility] (Luxembourger), General Discharge Instructions - POA Present On Arrival: None - Clinical Impression Clinical Impression: Schizophrenia, Malingering - Scribe Statement The provider has reviewed the documentation as recorded by the Leonard Natarajan Provider Attestation: All medical record entries made by the Madhavibalexis were at my direction and personally dictated by me. I have reviewed the chart and agree that the record accurately reflects my personal performance of the history, physical exam, medical decision making, and the department course for this patient. I have also personally directed, reviewed, and agree with the discharge instructions and disposition.
== END 2017-06-27 22:20 | disposition home or self-care (01) ==
LOC: C.ER 21:30
DX: F20.9 Schizophrenia, unspecified (principal); Z76.5 Malingerer [conscious simulation]

== ENCOUNTER 2017-06-28 18:43 | Emergency (ER) | payer MEDICARE ==
[2017-06-28 18:43] VITALS: BMI 23.0
[2017-06-28 18:49] VITALS: TEMP 98.2; O2SAT 98
--- NOTE | 2017-06-28 19:44 | C.PDOC ---
History Of Present Illness 57 year old male presents to the ER requesting a place to spend the night. Denies physical complaints, SI, or HI. Time Seen by Provider: 06/28/17 19:24 Chief Complaint (Nursing): Psychiatric Evaluation History Per: Patient History/Exam Limitations: no limitations Involuntary Hold By: None Recent travel outside of the [place]: No Past Medical History Reviewed: Historical Data, Nursing Documentation, Vital Signs Vital Signs: Last Vital Signs Temp 98.2 F 06/28/17 19:46 Pulse 86 06/28/17 19:46 Resp 18 06/28/17 19:46 BP 136/82 06/28/17 19:46 Pulse Ox 98 06/28/17 19:46 - Medical History PMH: Anxiety, Asthma, Bipolar Disorder, Depression, Gastritis, Paranoia, Personality Disorder, Schizophrenia, Seizures (pt has a history of Seizures.), Chronic Pain Surgical History: - [facility] Procedures APPLICATION OF SPLINT (04/09/14) CL FX REDUC-TIBIA/FIBULA (02/26/13) GROUP PSYCHOTHERAPY (06/01/17) INDIVID PSYCHOTHERAP NEC (12/17/13) INDIVIDUAL PSYCHOTHERAPY, BEHAVIORAL (01/29/16) INDIVIDUAL PSYCHOTHERAPY, COGNITIVE-BEHAVIORAL (07/30/16) INDIVIDUAL PSYCHOTHERAPY, SUPPORTIVE (06/01/17) MEDICATION MANAGEMENT (07/22/16) OTHER GROUP THERAPY (11/05/13) PSYCHIA INTERV/EVAL NEC (06/28/14) Family History: States: Unknown Family Hx - Social History Hx Tobacco Use: Yes Hx Alcohol Use: No Hx Substance Use: No - Immunization History Hx Tetanus Toxoid Vaccination: No Hx Influenza Vaccination: No Hx Pneumococcal Vaccination: No Review Of Systems Constitutional: Negative for: Fever, Chills Respiratory: Negative for: Cough Gastrointestinal: Negative for: Nausea, Vomiting, Abdominal Pain Psych: Negative for: Depression, Suicidal ideation Physical Exam - Physical Exam Appears: Non-toxic, No Acute Distress Skin: Normal Color, Warm, Dry Head: Atraumatic, Normacephalic Eye(s): bilateral: Normal Inspection Oral Mucosa: Moist Chest: Symmetrical, No Tenderness Cardiovascular: Rhythm Regular Respiratory: Normal Breath Sounds, No Rales, No Rhonchi, No Wheezing Gastrointestinal/Abdominal: Soft, No Tenderness Neurological/Psych: Oriented x3, Normal Speech ED Course And Treatment O2 Sat by Pulse Oximetry: 98 (Room air) Pulse Ox Interpretation: Normal Progress Note: Patient is sitting comfortably in no acute distress, with no complaints, vitals are stable, will discharge home. 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 - Scribe Statement The provider has reviewed the documentation as recorded by the Scribalexis Gottlieb All medical record entries made by the Madhavibalexis were at my direction and personally dictated by me. I have reviewed the chart and agree that the record accurately reflects my personal performance of the history, physical exam, medical decision making, and the department course for this patient. I have also personally directed, reviewed, and agree with the discharge instructions and disposition.
[2017-06-28 19:46] VITALS: BP 136/82; PULSE 86; RESP 18
== END 2017-06-28 20:20 | disposition home or self-care (01) ==
LOC: C.ER 18:43
DX: F25.9 Schizoaffective disorder, unspecified (principal); Z72.0 Tobacco use

== ENCOUNTER 2017-06-29 00:21 | Emergency (ER) | payer MEDICARE ==
[2017-06-29 00:21] VITALS: BMI 23.0
[2017-06-29 00:41] VITALS: RESP 18; O2SAT 100
--- NOTE | 2017-06-29 01:22 | C.PDOC ---
History Of Present Illness 57 y/o male presents to the ED requesting a place to stay the night. Patient was seen earlier tonight in the ED and discharged home, then went to [facility] ED for the same. No physical complaints at this time. Denies any SI or HI Time Seen by Provider: 06/29/17 01:07 Chief Complaint (Nursing): Medical Clearance History Per: Patient History/Exam Limitations: no limitations Past Medical History Reviewed: Historical Data, Nursing Documentation, Vital Signs Vital Signs: Last Vital Signs Temp 98 F 06/29/17 01:21 Pulse 83 06/29/17 01:21 Resp 18 06/29/17 01:21 BP 129/82 06/29/17 01:21 Pulse Ox 100 06/29/17 04:37 - Medical History PMH: Anxiety, Asthma, Bipolar Disorder, Depression, Gastritis, Paranoia, Personality Disorder, Schizophrenia, Seizures (pt has a history of Seizures.), Chronic Pain Denies: HIV, HTN, Chronic Kidney Disease, Sexually Transmitted Disease Surgical History: - [facility] Procedures APPLICATION OF SPLINT (04/09/14) CL FX REDUC-TIBIA/FIBULA (02/26/13) GROUP PSYCHOTHERAPY (06/01/17) INDIVID PSYCHOTHERAP NEC (12/17/13) INDIVIDUAL PSYCHOTHERAPY, BEHAVIORAL (01/29/16) INDIVIDUAL PSYCHOTHERAPY, COGNITIVE-BEHAVIORAL (07/30/16) INDIVIDUAL PSYCHOTHERAPY, SUPPORTIVE (06/01/17) MEDICATION MANAGEMENT (07/22/16) OTHER GROUP THERAPY (11/05/13) PSYCHIA INTERV/EVAL NEC (06/28/14) Family History: States: Unknown Family Hx - Social History Hx Tobacco Use: Yes Hx Alcohol Use: No Hx Substance Use: No - Immunization History Hx Tetanus Toxoid Vaccination: No Hx Influenza Vaccination: Yes Hx Pneumococcal Vaccination: No Review Of Systems Except As Marked, All Systems Reviewed And Found Negative. Psych: Negative for: Suicidal ideation (and homicidal) Physical Exam - Physical Exam Appears: Non-toxic, No Acute Distress Skin: Normal Color, Warm, Dry Head: Atraumatic, Normacephalic Eye(s): bilateral: Normal Inspection, PERRL, EOMI Nose: Normal Oral Mucosa: Moist Neck: Normal ROM, Supple Chest: Symmetrical Cardiovascular: Rhythm Regular, No Murmur Respiratory: Normal Breath Sounds, No Accessory Muscle Use Gastrointestinal/Abdominal: Soft, No Tenderness, No Distention Extremity: Bilateral: Atraumatic, Normal Color And Temperature, Normal ROM Neurological/Psych: Oriented x3, Normal Speech ED Course And Treatment O2 Sat by Pulse Oximetry: 100 (RA) Pulse Ox Interpretation: Normal Progress Note: Patient with multiple chronic schizophrenia, seen for multiple [facility] visits at [facility] and [facility], pt has no active psych c/o. Pt is sitting comfortably in no acute distress, with no complaints, vitals are stable , will discharge home. 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 - Scribe Statement The provider has reviewed the documentation as recorded by the Scribe (Roselyn Natarajan) All medical record entries made by the Scribe were at my direction and personally dictated by me. I have reviewed the chart and agree that the record accurately reflects my personal performance of the history, physical exam, medical decision making, and the department course for this patient. I have also personally directed, reviewed, and agree with the discharge instructions and disposition.
[2017-06-29 02:08] VITALS: BP 129/82; PULSE 83; TEMP 98
== END 2017-06-29 01:37 | disposition home or self-care (01) ==
LOC: C.ER 00:21
DX: F20.9 Schizophrenia, unspecified (principal)

== ENCOUNTER 2017-06-29 10:09 | Emergency (ER) | payer MEDICARE ==
[2017-06-29 10:09] VITALS: BMI 23.0
[2017-06-29 10:15] VITALS: BP 141/94; PULSE 102; RESP 18; TEMP 97.7; O2SAT 97
--- NOTE | 2017-06-29 11:08 | C.PDOC ---
History Of Present Illness 57 year old male presents to the ED with complaints of auditory hallucinations, which began earlier today. Patient wants to sleep. Patient is familiar to the ED and has had many prior evaluation for similar complaints. Patient denies fever, chills, nausea, vomiting and has no other complaints at this time. Time Seen by Provider: 06/29/17 10:41 Chief Complaint (Nursing): Psychiatric Evaluation History Per: Patient History/Exam Limitations: no limitations Onset/Duration Of Symptoms: Days Past Medical History Reviewed: Historical Data, Nursing Documentation, Vital Signs Vital Signs: Last Vital Signs Temp 97.7 F 06/29/17 10:13 Pulse 102 H 06/29/17 10:13 Resp 18 06/29/17 10:13 BP 141/94 H 06/29/17 10:13 Pulse Ox 97 06/29/17 12:37 - Medical History PMH: Anxiety, Asthma, Bipolar Disorder, Depression, Gastritis, Paranoia, Personality Disorder, Schizophrenia, Seizures (pt has a history of Seizures.), Chronic Pain Denies: HIV, HTN, Chronic Kidney Disease, Sexually Transmitted Disease Surgical History: - [facility] Procedures APPLICATION OF SPLINT (04/09/14) CL FX REDUC-TIBIA/FIBULA (02/26/13) GROUP PSYCHOTHERAPY (06/01/17) INDIVID PSYCHOTHERAP NEC (12/17/13) INDIVIDUAL PSYCHOTHERAPY, BEHAVIORAL (01/29/16) INDIVIDUAL PSYCHOTHERAPY, COGNITIVE-BEHAVIORAL (07/30/16) INDIVIDUAL PSYCHOTHERAPY, SUPPORTIVE (06/01/17) MEDICATION MANAGEMENT (07/22/16) OTHER GROUP THERAPY (11/05/13) PSYCHIA INTERV/EVAL NEC (06/28/14) Family History: States: No Known Family Hx - Social History Hx Tobacco Use: Yes Hx Alcohol Use: No Hx Substance Use: No - Immunization History Hx Tetanus Toxoid Vaccination: No Hx Influenza Vaccination: Yes Hx Pneumococcal Vaccination: No Review Of Systems Psych: Positive for: Other (auditory hallucinations). Negative for: Psychosis, Suicidal ideation Physical Exam - Physical Exam Appears: Non-toxic, No Acute Distress Skin: Normal Color, Warm, Dry, No Rash Head: Normacephalic Eye(s): bilateral: PERRL Nose: Normal Oral Mucosa: Moist Lips: Normal Appearing Neck: Normal ROM Cardiovascular: Rhythm Regular, No Murmur Respiratory: Normal Breath Sounds, No Accessory Muscle Use Gastrointestinal/Abdominal: Soft, No Tenderness Extremity: Normal ROM, No Deformity, No Swelling Neurological/Psych: Oriented x3, Normal Speech ED Course And Treatment O2 Sat by Pulse Oximetry: 97 (RA) Pulse Ox Interpretation: Normal Medical Decision Making Medical Decision Making: case discussed with crisis and okay to discharge patient home. Disposition Counseled Patient/Family Regarding: Diagnosis - Disposition Referrals: Tanya Roth MD [Staff Provider] - Disposition: HOME/ ROUTINE Disposition Time: 11:05 Condition: STABLE Additional Instructions: crisis would like you to follow up as outpatient please call and make arrangement return to ER if symptoms worsens or progress Instructions: Schizophrenia (DC) Forms: [facility] (Frisian), General Discharge Instructions - Clinical Impression Clinical Impression: Chronic schizophrenia - Scribe Statement The provider has reviewed the documentation as recorded by the Scribe (Arabella Hemphill) All medical record entries made by the Scribe were at my direction and personally dictated by me. I have reviewed the chart and agree that the record accurately reflects my personal performance of the history, physical exam, medical decision making, and the department course for this patient. I have also personally directed, reviewed, and agree with the discharge instructions and disposition.
== END 2017-06-29 11:15 | disposition home or self-care (01) ==
LOC: C.ER 10:09
DX: F20.9 Schizophrenia, unspecified (principal)

== ENCOUNTER 2017-06-30 18:51 | Emergency (ER) | payer MEDICARE ==
[2017-06-30 18:51] VITALS: BMI 23.0
[2017-06-30 19:15] VITALS: BP 134/84; PULSE 86; RESP 18; TEMP 98.2; O2SAT 98
--- NOTE | 2017-06-30 21:52 | C.PDOC ---
History Of Present Illness Patient presents to the ED requesting a place to stay the night. Also reports hearing voices, which is chronic per patient. No new complaints. No suicidal or homicidal ideation. Pt also requesting sandwich Time Seen by Provider: 06/30/17 21:41 Chief Complaint (Nursing): Medical Clearance History Per: Patient History/Exam Limitations: no limitations Onset/Duration Of Symptoms: Days Past Medical History Reviewed: Historical Data, Nursing Documentation, Vital Signs Vital Signs: Last Vital Signs Temp 98.2 F 06/30/17 19:09 Pulse 86 06/30/17 19:09 Resp 18 06/30/17 19:09 BP 134/84 06/30/17 19:09 Pulse Ox 98 06/30/17 21:54 - Medical History PMH: Anxiety, Asthma, Bipolar Disorder, Depression, Gastritis, HTN, Paranoia, Personality Disorder, Schizophrenia, Seizures (pt has a history of Seizures.), Chronic Pain Denies: HIV, Chronic Kidney Disease, Sexually Transmitted Disease Surgical History: - [facility] Procedures APPLICATION OF SPLINT (04/09/14) CL FX REDUC-TIBIA/FIBULA (02/26/13) GROUP PSYCHOTHERAPY (06/01/17) INDIVID PSYCHOTHERAP NEC (12/17/13) INDIVIDUAL PSYCHOTHERAPY, BEHAVIORAL (01/29/16) INDIVIDUAL PSYCHOTHERAPY, COGNITIVE-BEHAVIORAL (07/30/16) INDIVIDUAL PSYCHOTHERAPY, SUPPORTIVE (06/01/17) MEDICATION MANAGEMENT (07/22/16) OTHER GROUP THERAPY (11/05/13) PSYCHIA INTERV/EVAL NEC (06/28/14) Family History: States: Unknown Family Hx - Social History Hx Tobacco Use: Yes Hx Alcohol Use: No Hx Substance Use: No - Immunization History Hx Tetanus Toxoid Vaccination: No Hx Influenza Vaccination: Yes Hx Pneumococcal Vaccination: No Review Of Systems Except As Marked, All Systems Reviewed And Found Negative. Psych: Negative for: Suicidal ideation (and homicidal) Physical Exam - Physical Exam Appears: Non-toxic, No Acute Distress Skin: Normal Color Head: Atraumatic, Normacephalic Eye(s): bilateral: Normal Inspection, PERRL, EOMI Neck: Normal, Normal ROM Chest: Symmetrical Cardiovascular: Rhythm Regular Respiratory: No Accessory Muscle Use, No Other (respiratory distress) Extremity: Bilateral: Atraumatic, Normal Color And Temperature, Normal ROM Neurological/Psych: Oriented x3, Normal Speech ED Course And Treatment O2 Sat by Pulse Oximetry: 98 (RA) Pulse Ox Interpretation: Normal Progress Note: Patient requires no further ED intervention. Stable for d/c home. 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 - Scribe Statement The provider has reviewed the documentation as recorded by the Scribe (Roselyn Natarajan) All medical record entries made by the Scribe were at my direction and personally dictated by me. I have reviewed the chart and agree that the record accurately reflects my personal performance of the history, physical exam, medical decision making, and the department course for this patient. I have also personally directed, reviewed, and agree with the discharge instructions and disposition.
== END 2017-06-30 22:05 | disposition home or self-care (01) ==
LOC: C.ER 18:51
DX: Z00.00 Encounter for general adult medical examination without abnormal findings (principal); Z76.5 Malingerer [conscious simulation]

== ENCOUNTER 2017-07-01 23:32 | Emergency (ER) | payer MEDICARE ==
[2017-07-01 23:33] VITALS: BMI 23.0
--- NOTE | 2017-07-02 00:26 | C.PDOC ---
History Of Present Illness Patient presents to the ER requesting a place to spend the night. Denies any physical complaints at this time. Time Seen by Provider: 07/02/17 00:25 Chief Complaint (Nursing): Medical Clearance History Per: Patient History/Exam Limitations: no limitations Onset/Duration Of Symptoms: Hrs Current Symptoms Are (Timing): Still Present Severity: None Pain Scale Rating Of: 0 Recent travel outside of the [place]: No Past Medical History Reviewed: Historical Data, Nursing Documentation, Vital Signs Vital Signs: Last Vital Signs Temp 98.3 F 07/02/17 00:15 Pulse 68 07/02/17 00:15 Resp 18 07/02/17 00:15 BP 126/74 07/02/17 00:15 Pulse Ox 99 07/02/17 01:02 - Medical History PMH: Anxiety, Asthma, Bipolar Disorder, Depression, Gastritis, HTN, Paranoia, Personality Disorder, Schizophrenia, Seizures (pt has a history of Seizures.), Chronic Pain Surgical History: - [facility] Procedures APPLICATION OF SPLINT (04/09/14) CL FX REDUC-TIBIA/FIBULA (02/26/13) GROUP PSYCHOTHERAPY (06/01/17) INDIVID PSYCHOTHERAP NEC (12/17/13) INDIVIDUAL PSYCHOTHERAPY, BEHAVIORAL (01/29/16) INDIVIDUAL PSYCHOTHERAPY, COGNITIVE-BEHAVIORAL (07/30/16) INDIVIDUAL PSYCHOTHERAPY, SUPPORTIVE (06/01/17) MEDICATION MANAGEMENT (07/22/16) OTHER GROUP THERAPY (11/05/13) PSYCHIA INTERV/EVAL NEC (06/28/14) Family History: States: No Known Family Hx - Social History Hx Tobacco Use: Yes Hx Alcohol Use: No Hx Substance Use: No - Immunization History Hx Tetanus Toxoid Vaccination: No Hx Influenza Vaccination: Yes Hx Pneumococcal Vaccination: No Review Of Systems Constitutional: Negative for: Fever, Chills Cardiovascular: Negative for: Chest Pain, Palpitations Respiratory: Negative for: Cough, Shortness of Breath Gastrointestinal: Negative for: Nausea, Vomiting Psych: Negative for: Depression, Suicidal ideation Physical Exam - Physical Exam Appears: Non-toxic, No Acute Distress Skin: Warm, Dry Head: Normacephalic Oral Mucosa: Moist Chest: Symmetrical, No Tenderness Cardiovascular: Rhythm Regular Respiratory: Normal Breath Sounds, No Rales, No Rhonchi, No Wheezing Gastrointestinal/Abdominal: Soft, No Tenderness Neurological/Psych: Oriented x3 ED Course And Treatment O2 Sat by Pulse Oximetry: 99 (Room air) Pulse Ox Interpretation: Normal Reevaluation Time: 02:21 Reassessment Condition: Improved Disposition Counseled Patient/Family Regarding: Studies Performed, Diagnosis - Disposition Disposition: HOME/ ROUTINE Disposition Time: 00:25 Condition: FAIR Instructions: Schizophrenia (DC) Forms: [employer] (Belizean) - Clinical Impression Clinical Impression: Homeless, Schizophrenia, chronic condition - Scribe Statement The provider has reviewed the documentation as recorded by the Scribe Howard Gottlieb All medical record entries made by the Scribe were at my direction and personally dictated by me. I have reviewed the chart and agree that the record accurately reflects my personal performance of the history, physical exam, medical decision making, and the department course for this patient. I have also personally directed, reviewed, and agree with the discharge instructions and disposition.
[2017-07-02 12:00] VITALS: BP 126/88; PULSE 70; RESP 18; TEMP 97.6; O2SAT 98
== END 2017-07-02 02:24 | disposition home or self-care (01) ==
LOC: C.ER 23:32
DX: F20.9 Schizophrenia, unspecified (principal); Z59.0 Homelessness; I10 Essential (primary) hypertension; Z72.0 Tobacco use

== ENCOUNTER 2017-07-02 13:47 | Emergency (ER) | payer MEDICARE ==
[2017-07-02 13:47] VITALS: BMI 23.0
[2017-07-02 15:21] VITALS: BP 146/89; PULSE 83; RESP 20; TEMP 97.7; O2SAT 100
== END 2017-07-02 15:22 | disposition left against medical advice (07) ==
LOC: C.ER 13:47
DX: Z02.89 Encounter for other administrative examinations (principal); R10.9 Unspecified abdominal pain

== ENCOUNTER 2017-07-04 20:10 | Emergency (ER) | payer MEDICARE ==
[2017-07-04 20:10] VITALS: BMI 23.0
--- NOTE | 2017-07-04 20:28 | C.PDOC ---
History Of Present Illness 57 year old male with multiple prior visits for the same complaints, patient presents to the ED c/o auditory hallucination for the past 3 days. Patient also reports having abdominal pain, nausea, vomit, diarrhea for the past 3 days as well. Patient denies SI/HI, CP, SOB, dysuria, hematuria. Time Seen by Provider: 07/04/17 20:26 Chief Complaint (Nursing): Abdominal Pain History Per: Patient History/Exam Limitations: no limitations Onset/Duration Of Symptoms: Days Current Symptoms Are (Timing): Still Present Suicide/Self Injury Attempted (Context): None Modifying Factor(s): None Severity: None Associated Symptoms: Paranoia. denies: Depression, Suicidal Thoughts, Suicidal Plan Recent travel outside of the [place]: No Additional History Per: Patient Past Medical History Reviewed: Historical Data, Nursing Documentation, Vital Signs Vital Signs: Last Vital Signs Temp 98 F 07/05/17 02:40 Pulse 92 H 07/05/17 02:40 Resp 19 07/05/17 02:40 BP 111/73 07/05/17 02:40 Pulse Ox 99 07/05/17 02:40 - Medical History PMH: Anxiety, Asthma, Bipolar Disorder, Depression, Gastritis, HTN, Paranoia, Personality Disorder, Schizophrenia, Seizures (pt has a history of Seizures.), Chronic Pain Denies: HIV, Chronic Kidney Disease, Sexually Transmitted Disease Surgical History: No Surg Hx - [facility] Procedures APPLICATION OF SPLINT (04/09/14) CL FX REDUC-TIBIA/FIBULA (02/26/13) GROUP PSYCHOTHERAPY (06/01/17) INDIVID PSYCHOTHERAP NEC (12/17/13) INDIVIDUAL PSYCHOTHERAPY, BEHAVIORAL (01/29/16) INDIVIDUAL PSYCHOTHERAPY, COGNITIVE-BEHAVIORAL (07/30/16) INDIVIDUAL PSYCHOTHERAPY, SUPPORTIVE (06/01/17) MEDICATION MANAGEMENT (07/22/16) OTHER GROUP THERAPY (11/05/13) PSYCHIA INTERV/EVAL NEC (06/28/14) Family History: States: Unknown Family Hx - Social History Hx Tobacco Use: Yes Hx Alcohol Use: No Hx Substance Use: No - Immunization History Hx Tetanus Toxoid Vaccination: No Hx Influenza Vaccination: Yes Hx Pneumococcal Vaccination: No Review Of Systems Constitutional: Negative for: Fever, Chills Cardiovascular: Negative for: Chest Pain Respiratory: Negative for: Cough, Shortness of Breath Gastrointestinal: Negative for: Nausea, Vomiting, Abdominal Pain Skin: Negative for: Rash Neurological: Negative for: Weakness, Numbness Physical Exam - Physical Exam Appears: Non-toxic, No Acute Distress Skin: Warm, Dry Head: Normacephalic Eye(s): bilateral: Normal Inspection Oral Mucosa: Moist Neck: Supple Chest: Symmetrical Cardiovascular: Rhythm Regular, No Murmur Respiratory: No Rales, No Rhonchi, No Wheezing Gastrointestinal/Abdominal: Soft, No Tenderness, No Guarding, No Rebound Extremity: Normal ROM Neurological/Psych: Oriented x3 Gait: Unable To Assess ED Course And Treatment O2 Sat by Pulse Oximetry: 100 (ON RA) Pulse Ox Interpretation: Normal Reevaluation Time: 05:04 Reassessment Condition: Improved Disposition Counseled Patient/Family Regarding: Studies Performed, Diagnosis, Need For Followup - Disposition Referrals: [facility] [Outside] Disposition Time: 20:27 Condition: FAIR Instructions: Schizophrenia (DC) Forms: [facility] (Bengali) - Clinical Impression Clinical Impression: Schizophrenia - Scribe Statement The provider has reviewed the documentation as recorded by the Scribe Jarod Jett All medical record entries made by the Scribe were at my direction and personally dictated by me. I have reviewed the chart and agree that the record accurately reflects my personal performance of the history, physical exam, medical decision making, and the department course for this patient. I have also personally directed, reviewed, and agree with the discharge instructions and disposition.
[2017-07-05 02:40] VITALS: BP 111/73; PULSE 92; RESP 19; TEMP 98
[2017-07-05 05:04] VITALS: O2SAT 100
== END 2017-07-05 03:20 | disposition home or self-care (01) ==
LOC: C.ER 20:10
DX: F20.9 Schizophrenia, unspecified (principal)

== ENCOUNTER 2017-07-05 21:56 | Emergency (ER) | payer MEDICARE ==
[2017-07-05 21:56] VITALS: BMI 23.0
[2017-07-05 22:06] VITALS: BP 150/94; RESP 18; TEMP 98.3; O2SAT 95
--- NOTE | 2017-07-05 22:16 | C.PDOC ---
History Of Present Illness 57 y/o male presents to the ED requesting a place to stay the night. Patient offers no acute complaints and is ambulating in the ED with steady gait. Denies any suicidal or homicidal ideation. Time Seen by Provider: 07/05/17 22:14 Chief Complaint (Nursing): Medical Clearance History Per: Patient History/Exam Limitations: no limitations Past Medical History Reviewed: Historical Data, Nursing Documentation, Vital Signs Vital Signs: Last Vital Signs Temp 98.3 F 07/05/17 22:04 Pulse 18 L 07/05/17 22:35 Resp 18 07/05/17 22:04 BP 150/94 H 07/05/17 22:04 Pulse Ox 95 07/05/17 22:15 - Medical History PMH: Anxiety, Asthma, Bipolar Disorder, Depression, Gastritis, HTN, Paranoia, Personality Disorder, Schizophrenia, Seizures (pt has a history of Seizures.), Chronic Pain Denies: HIV, Chronic Kidney Disease, Sexually Transmitted Disease Surgical History: - [facility] Procedures APPLICATION OF SPLINT (04/09/14) CL FX REDUC-TIBIA/FIBULA (02/26/13) GROUP PSYCHOTHERAPY (06/01/17) INDIVID PSYCHOTHERAP NEC (12/17/13) INDIVIDUAL PSYCHOTHERAPY, BEHAVIORAL (01/29/16) INDIVIDUAL PSYCHOTHERAPY, COGNITIVE-BEHAVIORAL (07/30/16) INDIVIDUAL PSYCHOTHERAPY, SUPPORTIVE (06/01/17) MEDICATION MANAGEMENT (07/22/16) OTHER GROUP THERAPY (11/05/13) PSYCHIA INTERV/EVAL NEC (06/28/14) Family History: States: Unknown Family Hx - Social History Hx Tobacco Use: Yes Hx Alcohol Use: No Hx Substance Use: No - Immunization History Hx Tetanus Toxoid Vaccination: No Hx Influenza Vaccination: Yes Hx Pneumococcal Vaccination: No Review Of Systems Except As Marked, All Systems Reviewed And Found Negative. Constitutional: Negative for: Fever Respiratory: Negative for: Shortness of Breath Gastrointestinal: Negative for: Vomiting Psych: Negative for: Suicidal ideation Physical Exam - Physical Exam Appears: Non-toxic, No Acute Distress Skin: Warm, Dry Head: Atraumatic, Normacephalic Eye(s): bilateral: Normal Inspection, PERRL, EOMI Oral Mucosa: Moist Neck: Normal, Normal ROM Chest: Symmetrical Cardiovascular: Rhythm Regular Respiratory: Normal Breath Sounds, No Accessory Muscle Use Gastrointestinal/Abdominal: Soft, No Tenderness, No Distention Extremity: Bilateral: Atraumatic, Normal Color And Temperature, Normal ROM Neurological/Psych: Oriented x3, Normal Speech ED Course And Treatment O2 Sat by Pulse Oximetry: 95 (RA) Pulse Ox Interpretation: Normal Medical Decision Making Medical Decision Making: Impression: typical malingering, no acute issues. Pt requires no further ED intervention and is stable for d/c home Disposition Doctor Will See Patient In The: Office Counseled Patient/Family Regarding: Diagnosis - Disposition Referrals: [facility] [Outside] [facility] [Outside] [facility] [Outside] [email or web address] [Outside] formerly [facility] [Outside] Disposition: HOME/ ROUTINE Disposition Time: 22:15 Condition: GOOD Additional Instructions: seek nightly nursing home placement seek outpatient psych follow-up Forms: General Discharge Instructions, [facility] (Salvadorean) - POA Present On Arrival: None - Clinical Impression Clinical Impression: Malingering - Scribe Statement The provider has reviewed the documentation as recorded by the Scribe (Roselyn Natarajan) Provider Attestation: All medical record entries made by the Scribe were at my direction and personally dictated by me. I have reviewed the chart and agree that the record accurately reflects my personal performance of the history, physical exam, medical decision making, and the department course for this patient. I have also personally directed, reviewed, and agree with the discharge instructions and disposition.
[2017-07-05 23:06] VITALS: PULSE 18
== END 2017-07-05 22:25 | disposition home or self-care (01) ==
LOC: C.ER 21:56
DX: Z76.5 Malingerer [conscious simulation] (principal)

== ENCOUNTER 2017-07-06 09:50 | Emergency (ER) | payer MEDICARE ==
[2017-07-06 09:51] VITALS: BMI 23.0
== END 2017-07-06 10:07 | disposition left against medical advice (07) ==
LOC: C.ER 09:50
DX: Z02.89 Encounter for other administrative examinations (principal)

== ENCOUNTER 2017-07-07 23:13 | Emergency (ER) | payer MEDICARE ==
[2017-07-07 23:13] VITALS: BMI 23.0
--- NOTE | 2017-07-07 23:26 | C.PDOC ---
History Of Present Illness 57 y/o male with a pmhx of schizophrenia presents to the ED requesting a place to stay. Patient reports hearing voices, which has been ongoing for years. No suicidal or homicidal ideation. No new complaints. Denies recent drug or alcohol use. Time Seen by Provider: 07/07/17 23:24 Chief Complaint (Nursing): Psychiatric Evaluation History Per: Patient History/Exam Limitations: no limitations Onset/Duration Of Symptoms: Days Past Medical History Reviewed: Historical Data, Nursing Documentation, Vital Signs Vital Signs: Last Vital Signs Temp 98.3 F 07/07/17 23:31 Pulse 100 H 07/07/17 23:31 Resp 20 07/07/17 23:31 BP 155/92 H 07/07/17 23:31 Pulse Ox 99 07/07/17 23:31 - Medical History PMH: Anxiety, Asthma, Bipolar Disorder, Depression, Gastritis, HTN, Paranoia, Personality Disorder, Schizophrenia, Seizures (pt has a history of Seizures.), Chronic Pain Denies: HIV, Chronic Kidney Disease, Sexually Transmitted Disease Surgical History: Other Surgeries: Right hand surgery - [facility] Procedures APPLICATION OF SPLINT (04/09/14) CL FX REDUC-TIBIA/FIBULA (02/26/13) GROUP PSYCHOTHERAPY (06/01/17) INDIVID PSYCHOTHERAP NEC (12/17/13) INDIVIDUAL PSYCHOTHERAPY, BEHAVIORAL (01/29/16) INDIVIDUAL PSYCHOTHERAPY, COGNITIVE-BEHAVIORAL (07/30/16) INDIVIDUAL PSYCHOTHERAPY, SUPPORTIVE (06/01/17) MEDICATION MANAGEMENT (07/22/16) OTHER GROUP THERAPY (11/05/13) PSYCHIA INTERV/EVAL NEC (06/28/14) Family History: States: Unknown Family Hx - Social History Hx Tobacco Use: Yes Hx Alcohol Use: No Hx Substance Use: No - Immunization History Hx Tetanus Toxoid Vaccination: No Hx Influenza Vaccination: Yes Hx Pneumococcal Vaccination: No Review Of Systems Except As Marked, All Systems Reviewed And Found Negative. Constitutional: Negative for: Fever Respiratory: Negative for: Shortness of Breath Psych: Negative for: Suicidal ideation Physical Exam - Physical Exam Appears: Non-toxic, No Acute Distress Skin: Warm, Dry Head: Atraumatic, Normacephalic Eye(s): bilateral: Normal Inspection, PERRL, EOMI Nose: Normal Oral Mucosa: Moist Neck: Normal ROM, Supple Chest: Symmetrical Cardiovascular: Rhythm Regular Respiratory: Normal Breath Sounds, No Accessory Muscle Use Gastrointestinal/Abdominal: Soft, No Tenderness, No Distention Extremity: Bilateral: Atraumatic, Normal Color And Temperature, Normal ROM Neurological/Psych: Oriented x3, Normal Speech Gait: Steady ED Course And Treatment O2 Sat by Pulse Oximetry: 99 (RA) Pulse Ox Interpretation: Normal Medical Decision Making Medical Decision Making: Impression: no acute issues typical malingering not intoxicated (usually does not drink alcohol) warm enough out to d/c safely. Disposition Doctor Will See Patient In The: Office Counseled Patient/Family Regarding: Studies Performed, Diagnosis - Disposition Referrals: [facility] [Outside] [facility] [Outside] [facility] [Outside] [facility] [Outside] Disposition: HOME/ ROUTINE Disposition Time: 23:25 Condition: GOOD Additional Instructions: seek nightly [facility] placement seek outpatient psych followup for your chronic issues. Instructions: Schizoaffective Disorder Forms: [facility] (Angolan) - POA Present On Arrival: None - Clinical Impression Clinical Impression: Schizoaffective disorder, Malingering - Scribe Statement The provider has reviewed the documentation as recorded by the Scribe (Roselyn Natarajan) Provider Attestation: All medical record entries made by the Scribe were at my direction and personally dictated by me. I have reviewed the chart and agree that the record accurately reflects my personal performance of the history, physical exam, medical decision making, and the department course for this patient. I have also personally directed, reviewed, and agree with the discharge instructions and disposition.
[2017-07-07 23:33] VITALS: BP 155/92; PULSE 100; RESP 20; TEMP 98.3; O2SAT 99
== END 2017-07-07 23:58 | disposition home or self-care (01) ==
LOC: C.ER 23:13
DX: F25.9 Schizoaffective disorder, unspecified (principal); Z76.5 Malingerer [conscious simulation]

== ENCOUNTER → 2017-07-08 23:38 | Emergency (ER) | payer MEDICARE ==
[2017-07-08 23:38] VITALS: BMI 23.0
== END | disposition left against medical advice (07) ==
LOC: C.ER 23:38
DX: Z02.89 Encounter for other administrative examinations (principal)

== ENCOUNTER 2017-07-09 14:42 | Emergency (ER) | payer MEDICARE ==
[2017-07-09 14:42] VITALS: BMI 23.0
[2017-07-09 15:06] VITALS: BP 135/92; PULSE 106; RESP 20; TEMP 98.4; O2SAT 100
== END 2017-07-09 15:30 | disposition left against medical advice (07) ==
LOC: C.ER 14:42
DX: Z02.89 Encounter for other administrative examinations (principal); R44.0 Auditory hallucinations

== ENCOUNTER 2017-07-09 21:49 | Emergency (ER) | payer MEDICARE ==
[2017-07-09 21:49] VITALS: BMI 23.0
[2017-07-09 21:54] VITALS: BP 132/90; PULSE 99; RESP 18; TEMP 98.2; O2SAT 98
--- NOTE | 2017-07-09 22:31 | C.PDOC ---
History Of Present Illness Patient presents to the ER requesting a place to spend the night. Denies any physical complaints at this time. Time Seen by Provider: 07/09/17 22:29 Chief Complaint (Nursing): Psychiatric Evaluation History Per: Patient History/Exam Limitations: no limitations Onset/Duration Of Symptoms: Hrs Current Symptoms Are (Timing): Gone Suicide/Self Injury Attempted (Context): None Modifying Factor(s): None Severity: None Pain Scale Rating Of: 0 Associated Symptoms: denies: Depression, Suicidal Thoughts Involuntary Hold By: None Recent travel outside of the [place]: No Past Medical History Reviewed: Historical Data, Nursing Documentation, Vital Signs Vital Signs: Last Vital Signs Temp 98.2 F 07/09/17 21:52 Pulse 99 H 07/09/17 21:52 Resp 18 07/09/17 21:52 BP 132/90 07/09/17 21:52 Pulse Ox 98 07/09/17 22:34 - Medical History PMH: Anxiety, Asthma, Bipolar Disorder, Depression, Gastritis, HTN, Paranoia, Personality Disorder, Schizophrenia, Seizures (pt has a history of Seizures.), Chronic Pain Surgical History: - [facility] Procedures APPLICATION OF SPLINT (04/09/14) CL FX REDUC-TIBIA/FIBULA (02/26/13) GROUP PSYCHOTHERAPY (06/01/17) INDIVID PSYCHOTHERAP NEC (12/17/13) INDIVIDUAL PSYCHOTHERAPY, BEHAVIORAL (01/29/16) INDIVIDUAL PSYCHOTHERAPY, COGNITIVE-BEHAVIORAL (07/30/16) INDIVIDUAL PSYCHOTHERAPY, SUPPORTIVE (06/01/17) MEDICATION MANAGEMENT (07/22/16) OTHER GROUP THERAPY (11/05/13) PSYCHIA INTERV/EVAL NEC (06/28/14) Family History: States: No Known Family Hx - Social History Hx Tobacco Use: Yes Hx Alcohol Use: No Hx Substance Use: No - Immunization History Hx Tetanus Toxoid Vaccination: No Hx Influenza Vaccination: Yes Hx Pneumococcal Vaccination: No Review Of Systems Constitutional: Negative for: Fever, Chills Gastrointestinal: Negative for: Nausea, Vomiting, Diarrhea Physical Exam - Physical Exam Appears: Non-toxic Skin: Warm, Dry Head: Normacephalic Oral Mucosa: Moist Chest: Symmetrical, No Tenderness Cardiovascular: Rhythm Regular Respiratory: No Rales, No Rhonchi, No Wheezing Gastrointestinal/Abdominal: Soft, No Tenderness Neurological/Psych: Oriented x3 ED Course And Treatment O2 Sat by Pulse Oximetry: 98 (Room air) Pulse Ox Interpretation: Normal Reevaluation Time: 05:19 Reassessment Condition: Improved Disposition Counseled Patient/Family Regarding: Studies Performed, Diagnosis, Need For Followup - Disposition Referrals: at [facility] [Outside] Disposition: HOME/ ROUTINE Disposition Time: 22:30 Condition: FAIR Instructions: Schizophrenia (DC) Forms: [facility] (Turkmen) - Clinical Impression Clinical Impression: Schizophrenia - Scribe Statement The provider has reviewed the documentation as recorded by the Scribe Howard Gottlieb All medical record entries made by the Scribe were at my direction and personally dictated by me. I have reviewed the chart and agree that the record accurately reflects my personal performance of the history, physical exam, medical decision making, and the department course for this patient. I have also personally directed, reviewed, and agree with the discharge instructions and disposition.
== END 2017-07-10 06:04 | disposition home or self-care (01) ==
LOC: C.ER 21:49
DX: F20.9 Schizophrenia, unspecified (principal)

== ENCOUNTER 2017-07-12 21:17 | Emergency (ER) | payer MEDICARE ==
[2017-07-12 21:17] VITALS: BMI 23.0
[2017-07-12 21:46] VITALS: BP 121/76; PULSE 96; TEMP 98.1; O2SAT 96
--- NOTE | 2017-07-12 21:59 | C.PDOC ---
History Of Present Illness 57 y/o male presents to the ED requesting a place to stay the night. Patient complains of hearing voices, which has been ongoing for years. No new complaints. He denies any suicidal or homicidal ideation. Time Seen by Provider: 07/12/17 21:58 Chief Complaint (Nursing): Psychiatric Evaluation History Per: Patient History/Exam Limitations: no limitations Onset/Duration Of Symptoms: Days Current Symptoms Are (Timing): Still Present Suicide/Self Injury Attempted (Context): None Modifying Factor(s): None Severity: None Pain Scale Rating Of: 0 Involuntary Hold By: None Recent travel outside of the [place]: No Past Medical History Reviewed: Historical Data, Nursing Documentation, Vital Signs Vital Signs: Last Vital Signs Temp 98.1 F 07/12/17 21:42 Pulse 96 H 07/12/17 21:42 Resp 20 07/12/17 21:42 BP 121/76 07/12/17 21:42 Pulse Ox 96 07/12/17 22:38 - Medical History PMH: Anxiety, Asthma, Bipolar Disorder, Depression, Gastritis, HTN, Paranoia, Personality Disorder, Schizophrenia, Seizures (pt has a history of Seizures.), Chronic Pain Denies: HIV, Chronic Kidney Disease, Sexually Transmitted Disease Surgical History: Other Surgeries: Right hand surgery - [facility] Procedures APPLICATION OF SPLINT (04/09/14) CL FX REDUC-TIBIA/FIBULA (02/26/13) GROUP PSYCHOTHERAPY (06/01/17) INDIVID PSYCHOTHERAP NEC (12/17/13) INDIVIDUAL PSYCHOTHERAPY, BEHAVIORAL (01/29/16) INDIVIDUAL PSYCHOTHERAPY, COGNITIVE-BEHAVIORAL (07/30/16) INDIVIDUAL PSYCHOTHERAPY, SUPPORTIVE (06/01/17) MEDICATION MANAGEMENT (07/22/16) OTHER GROUP THERAPY (11/05/13) PSYCHIA INTERV/EVAL NEC (06/28/14) Family History: States: Unknown Family Hx - Social History Hx Tobacco Use: Yes Hx Alcohol Use: No Hx Substance Use: No - Immunization History Hx Tetanus Toxoid Vaccination: No Hx Influenza Vaccination: Yes Hx Pneumococcal Vaccination: No Review Of Systems Constitutional: Negative for: Fever Respiratory: Negative for: Shortness of Breath Psych: Negative for: Suicidal ideation Physical Exam - Physical Exam Appears: Non-toxic, No Acute Distress Skin: Warm, Dry Head: Normacephalic Eye(s): bilateral: Normal Inspection Oral Mucosa: Moist Neck: Trachea Midline, Supple Chest: Symmetrical Cardiovascular: Rhythm Regular Respiratory: No Rales, No Rhonchi, No Wheezing Gastrointestinal/Abdominal: Soft, No Tenderness, No Distention Extremity: Bilateral: Atraumatic, Normal ROM Pulses: Left Dorsalis Pedis: Normal, Right Dorsalis Pedis: Normal Neurological/Psych: Oriented x3 Gait: Steady ED Course And Treatment O2 Sat by Pulse Oximetry: 96 (RA) Pulse Ox Interpretation: Normal Progress Note: Patient has no acute complaints. No further ED intervention is indicated. Patient is stable for d/c home. Provided with outpatient psychiatric resources. Reevaluation Time: 03:21 Reassessment Condition: Improved Disposition Counseled Patient/Family Regarding: Studies Performed, Diagnosis, Need For Followup - Disposition Referrals: [facility] [Outside] Disposition: HOME/ ROUTINE Disposition Time: 21:58 Condition: FAIR Instructions: Schizophrenia (DC) Forms: [facility] [facility] [employer] [facility] (Ethiopian) - POA Present On Arrival: None - Clinical Impression Clinical Impression: Schizophrenia, chronic condition - Scribe Statement The provider has reviewed the documentation as recorded by the Scribe (Roselyn Natarajan) Provider Attestation: All medical record entries made by the Scribe were at my direction and personally dictated by me. I have reviewed the chart and agree that the record accurately reflects my personal performance of the history, physical exam, medical decision making, and the department course for this patient. I have also personally directed, reviewed, and agree with the discharge instructions and disposition.
[2017-07-13 03:23] VITALS: RESP 18
== END 2017-07-13 00:05 | disposition home or self-care (01) ==
LOC: C.ER 21:17
DX: F20.9 Schizophrenia, unspecified (principal)

== ENCOUNTER 2017-07-14 00:11 | Emergency (ER) | payer MEDICARE ==
[2017-07-14 00:11] VITALS: BMI 23.0
[2017-07-14 00:35] VITALS: BP 132/92; PULSE 84; RESP 22; TEMP 97.3; O2SAT 98
--- NOTE | 2017-07-14 00:57 | C.PDOC ---
History Of Present Illness 57 y/o male presents to the ED complaining of hearing voices, ongoing for years. No changes in symptoms or new complaints. He denies any suicidal or homicidal ideation. Patient offers no physical complaints. Time Seen by Provider: 07/14/17 00:55 Chief Complaint (Nursing): Medical Clearance History Per: Patient History/Exam Limitations: no limitations Onset/Duration Of Symptoms: Days Current Symptoms Are (Timing): Still Present Severity: None Pain Scale Rating Of: 0 Recent travel outside of the [place]: No Past Medical History Reviewed: Historical Data, Nursing Documentation, Vital Signs Vital Signs: Last Vital Signs Temp 97.3 F L 07/14/17 00:32 Pulse 84 07/14/17 00:32 Resp 22 07/14/17 00:32 BP 132/92 H 07/14/17 00:32 Pulse Ox 98 07/14/17 01:59 - Medical History PMH: Anxiety, Asthma, Bipolar Disorder, Depression, Gastritis, HTN, Paranoia, Personality Disorder, Schizophrenia, Seizures (pt has a history of Seizures.), Chronic Pain Denies: Diabetes, Hepatitis, HIV, Chronic Kidney Disease, Sexually Transmitted Disease Surgical History: Other Surgeries: Right hand surgery - [facility] Procedures APPLICATION OF SPLINT (04/09/14) CL FX REDUC-TIBIA/FIBULA (02/26/13) GROUP PSYCHOTHERAPY (06/01/17) INDIVID PSYCHOTHERAP NEC (12/17/13) INDIVIDUAL PSYCHOTHERAPY, BEHAVIORAL (01/29/16) INDIVIDUAL PSYCHOTHERAPY, COGNITIVE-BEHAVIORAL (07/30/16) INDIVIDUAL PSYCHOTHERAPY, SUPPORTIVE (06/01/17) MEDICATION MANAGEMENT (07/22/16) OTHER GROUP THERAPY (11/05/13) PSYCHIA INTERV/EVAL NEC (06/28/14) Family History: States: Unknown Family Hx - Social History Hx Tobacco Use: Yes Hx Alcohol Use: No Hx Substance Use: No - Immunization History Hx Tetanus Toxoid Vaccination: No Hx Influenza Vaccination: Yes Hx Pneumococcal Vaccination: No Review Of Systems Constitutional: Negative for: Fever Respiratory: Negative for: Shortness of Breath Psych: Negative for: Suicidal ideation Physical Exam - Physical Exam Appears: Non-toxic, No Acute Distress Skin: Warm, Dry Head: Normacephalic Eye(s): bilateral: Normal Inspection Oral Mucosa: Moist Neck: Supple Chest: Symmetrical Cardiovascular: Rhythm Regular Respiratory: No Rales, No Rhonchi, No Wheezing Gastrointestinal/Abdominal: Soft, No Tenderness, No Distention Extremity: Bilateral: Atraumatic, Normal ROM Pulses: Left Dorsalis Pedis: Normal, Right Dorsalis Pedis: Normal Neurological/Psych: Oriented x3 Gait: Steady ED Course And Treatment O2 Sat by Pulse Oximetry: 98 (RA) Pulse Ox Interpretation: Normal Progress Note: Patient resting comfortably, with no acute complaints offered. No further ED intervention required. Provided resources for outpatient psychiatric services. Reevaluation Time: 03:38 Reassessment Condition: Improved Disposition Counseled Patient/Family Regarding: Studies Performed, Diagnosis, Need For Followup - Disposition Referrals: [facility] [Outside] Disposition: HOME/ ROUTINE Disposition Time: 00:56 Condition: FAIR Instructions: Schizophrenia (DC) Forms: [facility] (Indonesian) - POA Present On Arrival: None - Clinical Impression Clinical Impression: Schizophrenia, chronic condition - Scribe Statement The provider has reviewed the documentation as recorded by the Leonard Natarajan Provider Attestation: All medical record entries made by the Leonard were at my direction and personally dictated by me. I have reviewed the chart and agree that the record accurately reflects my personal performance of the history, physical exam, medical decision making, and the department course for this patient. I have also personally directed, reviewed, and agree with the discharge instructions and disposition.
== END 2017-07-14 05:30 | disposition home or self-care (01) ==
LOC: C.ER 00:11
DX: F20.9 Schizophrenia, unspecified (principal)

== ENCOUNTER 2017-07-15 20:01 | Emergency (ER) | payer MEDICARE ==
[2017-07-15 20:01] VITALS: BMI 23.0
[2017-07-15 20:24] VITALS: BP 121/83; PULSE 95; O2SAT 98
--- NOTE | 2017-07-15 20:55 | C.PDOC ---
History Of Present Illness 57 y/o male presents to the ER complaining of feeling tired. Contrary to triage , patient denies having fever and cough. Patient is asking to rest for tonight. Denies having acute psychiatric complaints. Time Seen by Provider: 07/15/17 20:28 Chief Complaint (Nursing): Cough, Cold, Congestion History Per: Patient History/Exam Limitations: no limitations Past Medical History Reviewed: Historical Data, Nursing Documentation, Vital Signs Vital Signs: Last Vital Signs Temp 98.1 F 07/15/17 21:02 Pulse 95 H 07/15/17 20:14 Resp 18 07/15/17 21:02 BP 121/83 07/15/17 20:14 Pulse Ox 98 07/15/17 21:50 - Medical History PMH: Anxiety, Asthma, Bipolar Disorder, Depression, Gastritis, HTN, Paranoia, Personality Disorder, Schizophrenia, Seizures (pt has a history of Seizures.), Chronic Pain Denies: Diabetes, Hepatitis, HIV, Chronic Kidney Disease, Sexually Transmitted Disease Surgical History: Other Surgeries: Hx of surgeries - [facility] Procedures APPLICATION OF SPLINT (04/09/14) CL FX REDUC-TIBIA/FIBULA (02/26/13) GROUP PSYCHOTHERAPY (06/01/17) INDIVID PSYCHOTHERAP NEC (12/17/13) INDIVIDUAL PSYCHOTHERAPY, BEHAVIORAL (01/29/16) INDIVIDUAL PSYCHOTHERAPY, COGNITIVE-BEHAVIORAL (07/30/16) INDIVIDUAL PSYCHOTHERAPY, SUPPORTIVE (06/01/17) MEDICATION MANAGEMENT (07/22/16) OTHER GROUP THERAPY (11/05/13) PSYCHIA INTERV/EVAL NEC (06/28/14) Family History: States: No Known Family Hx - Social History Hx Tobacco Use: Yes Hx Alcohol Use: No Hx Substance Use: No - Immunization History Hx Tetanus Toxoid Vaccination: Yes Hx Influenza Vaccination: Yes Hx Pneumococcal Vaccination: Yes Review Of Systems Except As Marked, All Systems Reviewed And Found Negative. Physical Exam - Physical Exam Appears: No Acute Distress, Other (interactive, talkative) Skin: Normal Color, Warm Head: Atraumatic, Normacephalic Eye(s): bilateral: Normal Inspection Nose: Normal Oral Mucosa: Moist Neck: Supple Chest: Symmetrical Respiratory: Normal Breath Sounds, No Rales, No Rhonchi, No Wheezing Neurological/Psych: Oriented x3, Normal Speech ED Course And Treatment O2 Sat by Pulse Oximetry: 98 (RA) Pulse Ox Interpretation: Normal Progress Note: Patient has been discharged and told to follow up in clinic. 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 - Scribe Statement The provider has reviewed the documentation as recorded by the Leonard Walsh Provider Attestation All medical record entries made by the Leonard were at my direction and personally dictated by me. I have reviewed the chart and agree that the record accurately reflects my personal performance of the history, physical exam, medical decision making, and the department course for this patient. I have also personally directed, reviewed, and agree with the discharge instructions and disposition.
[2017-07-15 21:05] VITALS: RESP 18; TEMP 98.1
== END 2017-07-15 21:02 | disposition home or self-care (01) ==
LOC: C.ER 20:01
DX: Z04.8 Encounter for examination and observation for other specified reasons (principal)

== ENCOUNTER 2017-07-16 01:47 | Emergency (ER) | payer MEDICARE ==
[2017-07-16 01:47] VITALS: BMI 23.0
--- NOTE | 2017-07-16 03:02 | C.PDOC ---
History Of Present Illness 57 year old male presents to the ED requesting a place to sleep for the night. Patient is familiar to the ED and has had many prior evaluations for similar requests. Patient has no complaints at this time. Time Seen by Provider: 07/16/17 02:17 Chief Complaint (Nursing): Medical Clearance History Per: Patient History/Exam Limitations: no limitations Additional History Per: Patient Past Medical History Reviewed: Historical Data, Nursing Documentation, Vital Signs - Medical History PMH: Anxiety, Asthma, Bipolar Disorder, Depression, Gastritis, HTN, Paranoia, Personality Disorder, Schizophrenia, Seizures (pt has a history of Seizures.), Chronic Pain Denies: Diabetes, Hepatitis, HIV, Chronic Kidney Disease, Sexually Transmitted Disease Surgical History: No Surg Hx - [facility] Procedures APPLICATION OF SPLINT (04/09/14) CL FX REDUC-TIBIA/FIBULA (02/26/13) GROUP PSYCHOTHERAPY (06/01/17) INDIVID PSYCHOTHERAP NEC (12/17/13) INDIVIDUAL PSYCHOTHERAPY, BEHAVIORAL (01/29/16) INDIVIDUAL PSYCHOTHERAPY, COGNITIVE-BEHAVIORAL (07/30/16) INDIVIDUAL PSYCHOTHERAPY, SUPPORTIVE (06/01/17) MEDICATION MANAGEMENT (07/22/16) OTHER GROUP THERAPY (11/05/13) PSYCHIA INTERV/EVAL NEC (06/28/14) Family History: States: Unknown Family Hx - Social History Hx Tobacco Use: Yes Hx Alcohol Use: No Hx Substance Use: No - Immunization History Hx Tetanus Toxoid Vaccination: Yes Hx Influenza Vaccination: Yes Hx Pneumococcal Vaccination: Yes Review Of Systems Constitutional: Positive for: Other (requesting place to sleep ) Physical Exam - Physical Exam Appears: Non-toxic, No Acute Distress Skin: Normal Color, Warm, Dry Head: Atraumatic, Normacephalic Eye(s): bilateral: Normal Inspection Oral Mucosa: Moist Neck: Supple Chest: Symmetrical, No Deformity, No Tenderness Cardiovascular: Rhythm Regular, No Murmur Respiratory: Normal Breath Sounds, No Rales, No Rhonchi, No Wheezing Extremity: Normal ROM, Capillary Refill (less than 2 seconds ) Neurological/Psych: Oriented x3, Normal Speech, Normal Cognition Disposition - Disposition Referrals: [facility] [Outside] Disposition: HOME/ ROUTINE Disposition Time: 05:23 Condition: STABLE Forms: [facility] (Faroese) - Clinical Impression Clinical Impression: Encounter for medical assessment - 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 - Scribe Statement The provider has reviewed the documentation as recorded by the Scribe (Rosi Chow) All medical record entries made by the Scribe were at my direction and personally dictated by me. I have reviewed the chart and agree that the record accurately reflects my personal performance of the history, physical exam, medical decision making, and the department course for this patient. I have also personally directed, reviewed, and agree with the discharge instructions and disposition.
[2017-07-16 06:07] VITALS: RESP 20
[2017-07-16 06:10] VITALS: BP 130/78; PULSE 78; TEMP 98.2; O2SAT 100
== END 2017-07-16 05:00 | disposition home or self-care (01) ==
LOC: C.ER 01:47
DX: Z04.8 Encounter for examination and observation for other specified reasons (principal)

== ENCOUNTER 2017-07-16 22:04 | Emergency (ER) | payer MEDICARE ==
[2017-07-16 22:04] VITALS: BMI 23.0
[2017-07-16 22:50] VITALS: TEMP 98
[2017-07-16 23:23] VITALS: BP 110/70; PULSE 78; RESP 14; O2SAT 99
--- NOTE | 2017-07-17 01:58 | C.PDOC ---
History Of Present Illness 57 year old male presents to the ER requesting a place to spend the night. Denies physical complaints, suicidal ideation, or homicidal ideation at this time. Chief Complaint (Nursing): Psychiatric Evaluation History Per: Patient History/Exam Limitations: no limitations Suicide/Self Injury Attempted (Context): None Modifying Factor(s): None Associated Symptoms: denies: Depression, Suicidal Thoughts Involuntary Hold By: None Recent travel outside of the [place]: No Past Medical History Reviewed: Historical Data, Nursing Documentation, Vital Signs Vital Signs: Last Vital Signs Temp 98 F 07/16/17 22:48 Pulse 78 07/16/17 23:21 Resp 14 07/16/17 23:21 BP 110/70 07/16/17 23:21 Pulse Ox 99 07/17/17 02:01 - Medical History PMH: Anxiety, Asthma, Bipolar Disorder, Depression, Gastritis, HTN, Paranoia, Personality Disorder, Schizophrenia, Seizures (pt has a history of Seizures.), Chronic Pain Surgical History: - [facility] Procedures APPLICATION OF SPLINT (04/09/14) CL FX REDUC-TIBIA/FIBULA (02/26/13) GROUP PSYCHOTHERAPY (06/01/17) INDIVID PSYCHOTHERAP NEC (12/17/13) INDIVIDUAL PSYCHOTHERAPY, BEHAVIORAL (01/29/16) INDIVIDUAL PSYCHOTHERAPY, COGNITIVE-BEHAVIORAL (07/30/16) INDIVIDUAL PSYCHOTHERAPY, SUPPORTIVE (06/01/17) MEDICATION MANAGEMENT (07/22/16) OTHER GROUP THERAPY (11/05/13) PSYCHIA INTERV/EVAL NEC (06/28/14) Family History: States: Unknown Family Hx - Social History Hx Tobacco Use: Yes Hx Alcohol Use: No Hx Substance Use: No - Immunization History Hx Tetanus Toxoid Vaccination: Yes Hx Influenza Vaccination: Yes Hx Pneumococcal Vaccination: Yes Review Of Systems Constitutional: Negative for: Fever, Chills Gastrointestinal: Negative for: Nausea, Vomiting Psych: Negative for: Depression, Suicidal ideation Physical Exam - Physical Exam Appears: Non-toxic, No Acute Distress Skin: Normal Color, Warm, Dry Head: Atraumatic, Normacephalic Eye(s): bilateral: Normal Inspection Oral Mucosa: Moist Chest: Symmetrical, No Tenderness Cardiovascular: Rhythm Regular Respiratory: Normal Breath Sounds, No Rales, No Rhonchi, No Wheezing Gastrointestinal/Abdominal: Soft, No Tenderness Neurological/Psych: Oriented x3, Normal Speech ED Course And Treatment O2 Sat by Pulse Oximetry: 99 (Room air) Pulse Ox Interpretation: Normal Progress Note: Pt is in no distress, stable vitals, and stable for d/c Disposition - Disposition Disposition: HOME/ ROUTINE Disposition Time: 23:41 Condition: STABLE Forms: [facility] (Frisian) - Clinical Impression Clinical Impression: Medical assessment - PA / ELECTRICIAN SOUND / Resident Statement MD/DO has reviewed & agrees with the documentation as recorded. - Scribe Statement The provider has reviewed the documentation as recorded by the Scribe Howard Gottlieb All medical record entries made by the Scribe were at my direction and personally dictated by me. I have reviewed the chart and agree that the record accurately reflects my personal performance of the history, physical exam, medical decision making, and the department course for this patient. I have also personally directed, reviewed, and agree with the discharge instructions and disposition.
== END 2017-07-16 23:23 | disposition home or self-care (01) ==
LOC: C.ER 22:04
DX: Z04.8 Encounter for examination and observation for other specified reasons (principal)

== ENCOUNTER 2017-07-17 21:31 | Emergency (ER) | payer MEDICARE ==
[2017-07-17 21:31] VITALS: BMI 23.0
[2017-07-17 22:07] VITALS: BP 120/80; PULSE 80; RESP 14; TEMP 97; O2SAT 97
--- NOTE | 2017-07-17 22:24 | C.PDOC ---
History Of Present Illness 57 years old male presents to ED for complaints of being nauseous after drinking coffee today. Patient is well known to ER with numerous visits. Patient is currently drinking coffee and eating a sandwich in the exam area. Denies any other physical complaints. Time Seen by Provider: 07/17/17 22:16 Chief Complaint (Nursing): Abdominal Pain History Per: Patient History/Exam Limitations: no limitations Onset/Duration Of Symptoms: Hrs Current Symptoms Are (Timing): Still Present Radiation Of Pain To:: None Associated Symptoms: Nausea. denies: Fever, Chills, Vomiting, Diarrhea Exacerbating Factors: None Alleviating Factors: None Last Bowel Movement: Today Recent travel outside of the [place]: No Past Medical History Reviewed: Historical Data, Nursing Documentation, Vital Signs Vital Signs: Last Vital Signs Temp 97 F L 07/17/17 22:04 Pulse 80 07/17/17 22:04 Resp 14 07/17/17 22:04 BP 120/80 07/17/17 22:04 Pulse Ox 97 07/17/17 23:41 - Medical History PMH: Anxiety, Asthma, Bipolar Disorder, Depression, Gastritis, HTN, Paranoia, Personality Disorder, Schizophrenia, Seizures (pt has a history of Seizures.), Chronic Pain Surgical History: - [facility] Procedures APPLICATION OF SPLINT (04/09/14) CL FX REDUC-TIBIA/FIBULA (02/26/13) GROUP PSYCHOTHERAPY (06/01/17) INDIVID PSYCHOTHERAP NEC (12/17/13) INDIVIDUAL PSYCHOTHERAPY, BEHAVIORAL (01/29/16) INDIVIDUAL PSYCHOTHERAPY, COGNITIVE-BEHAVIORAL (07/30/16) INDIVIDUAL PSYCHOTHERAPY, SUPPORTIVE (06/01/17) MEDICATION MANAGEMENT (07/22/16) OTHER GROUP THERAPY (11/05/13) PSYCHIA INTERV/EVAL NEC (06/28/14) Family History: States: Unknown Family Hx - Social History Hx Tobacco Use: Yes Hx Alcohol Use: No Hx Substance Use: No - Immunization History Hx Tetanus Toxoid Vaccination: Yes Hx Influenza Vaccination: Yes Hx Pneumococcal Vaccination: Yes Review Of Systems Constitutional: Negative for: Fever, Chills Respiratory: Negative for: Shortness of Breath Gastrointestinal: Positive for: Nausea. Negative for: Vomiting, Abdominal Pain , Diarrhea Skin: Negative for: Rash Neurological: Negative for: Weakness, Numbness Physical Exam - Physical Exam Appears: Well, Non-toxic, No Acute Distress Skin: Normal Color, Warm, Dry Eye(s): bilateral: Normal Inspection Oral Mucosa: Moist Teeth: Other (poor dentition) Neck: Supple Respiratory: Normal Breath Sounds Gastrointestinal/Abdominal: Soft, No Tenderness, No Distention, No Guarding Neurological/Psych: Oriented x3, Normal Speech, Normal Cognition Gait: Steady ED Course And Treatment O2 Sat by Pulse Oximetry: 97 (RA) Pulse Ox Interpretation: Normal Progress Note: Patient denies pain currently. Patient is stable for discharge. Disposition Counseled Patient/Family Regarding: Diagnosis, Need For Followup - Disposition Disposition: HOME/ ROUTINE Disposition Time: 22:22 Condition: STABLE Additional Instructions: Follow up with PMD Return to ER if worse Forms: [facility] (Lithuanian), General Discharge Instructions - Clinical Impression Clinical Impression: Nausea - PA / PRECISION GRINDER / Resident Statement MD/DO has reviewed & agrees with the documentation as recorded. - Scribe Statement The provider has reviewed the documentation as recorded by the Madhavibalexis Hernández All medical record entries made by the Scribe were at my direction and personally dictated by me. I have reviewed the chart and agree that the record accurately reflects my personal performance of the history, physical exam, medical decision making, and the department course for this patient. I have also personally directed, reviewed, and agree with the discharge instructions and disposition.
== END 2017-07-17 22:28 | disposition home or self-care (01) ==
LOC: C.ER 21:31
DX: R11.0 Nausea (principal)

== ENCOUNTER 2017-07-18 20:11 | Emergency (ER) | payer MEDICARE ==
[2017-07-18 20:11] VITALS: BMI 23.0
[2017-07-18 20:21] VITALS: BP 126/84; PULSE 103; TEMP 98.3; O2SAT 97
--- NOTE | 2017-07-18 20:38 | C.PDOC ---
History Of Present Illness 57 year old male presents to the emergency room complaining of hearing voices. Patient has had several visits to the emergency room in the past for similar c/ o. Patient denies suicidal or homicidal ideation. No medical c/o Time Seen by Provider: 07/18/17 20:27 Chief Complaint (Nursing): Psychiatric Evaluation History Per: Patient History/Exam Limitations: no limitations Past Medical History Reviewed: Historical Data, Nursing Documentation, Vital Signs Vital Signs: Last Vital Signs Temp 98.3 F 07/18/17 20:19 Pulse 103 H 07/18/17 20:19 Resp 16 07/18/17 20:39 BP 126/84 07/18/17 20:19 Pulse Ox 97 07/18/17 21:29 - Medical History PMH: Anxiety, Asthma, Bipolar Disorder, Depression, Gastritis, HTN, Paranoia, Personality Disorder, Schizophrenia, Seizures (pt has a history of Seizures.), Chronic Pain Denies: Diabetes, Hepatitis, HIV, Chronic Kidney Disease, Sexually Transmitted Disease Surgical History: No Surg Hx - [facility] Procedures APPLICATION OF SPLINT (04/09/14) CL FX REDUC-TIBIA/FIBULA (02/26/13) GROUP PSYCHOTHERAPY (06/01/17) INDIVID PSYCHOTHERAP NEC (12/17/13) INDIVIDUAL PSYCHOTHERAPY, BEHAVIORAL (01/29/16) INDIVIDUAL PSYCHOTHERAPY, COGNITIVE-BEHAVIORAL (07/30/16) INDIVIDUAL PSYCHOTHERAPY, SUPPORTIVE (06/01/17) MEDICATION MANAGEMENT (07/22/16) OTHER GROUP THERAPY (11/05/13) PSYCHIA INTERV/EVAL NEC (06/28/14) Family History: States: No Known Family Hx - Social History Hx Tobacco Use: Yes Hx Alcohol Use: No Hx Substance Use: No - Immunization History Hx Tetanus Toxoid Vaccination: Yes Hx Influenza Vaccination: Yes Hx Pneumococcal Vaccination: Yes Review Of Systems Except As Marked, All Systems Reviewed And Found Negative. Psych: Positive for: Other (hearing voices). Negative for: Suicidal ideation Physical Exam - Physical Exam Appears: Other (patient is interactive, and is drinking and eating in the ER.) Eye(s): bilateral: Normal Inspection Neck: Supple Extremity: Normal ROM Neurological/Psych: Oriented x3, Normal Speech, Normal Cognition Gait: Steady ED Course And Treatment O2 Sat by Pulse Oximetry: 97 (RA) Pulse Ox Interpretation: Normal Progress Note: Pt is stable sleeping on exam chair, will follow up with his psychiatrist or in clinic Disposition Counseled Patient/Family Regarding: Diagnosis, Need For Followup, Rx Given - Disposition Referrals: at [facility] [Outside] [facility] [Outside] Disposition: HOME/ ROUTINE Disposition Time: 20:37 Condition: STABLE Forms: [facility] (Sami) - Clinical Impression Clinical Impression: Malingerer - PA / 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 - Scribe Statement The provider has reviewed the documentation as recorded by the Scribe (John Copeland) All medical record entries made by the Scribe were at my direction and personally dictated by me. I have reviewed the chart and agree that the record accurately reflects my personal performance of the history, physical exam, medical decision making, and the department course for this patient. I have also personally directed, reviewed, and agree with the discharge instructions and disposition.
[2017-07-18 20:40] VITALS: RESP 16
== END 2017-07-18 20:39 | disposition home or self-care (01) ==
LOC: C.ER 20:11
DX: Z76.5 Malingerer [conscious simulation] (principal)

== ENCOUNTER 2017-07-19 23:19 | Emergency (ER) | payer MEDICARE ==
[2017-07-19 23:19] VITALS: BMI 23.0
[2017-07-19 23:25] VITALS: BP 110/70; PULSE 80; RESP 14; TEMP 97; O2SAT 98
--- NOTE | 2017-07-19 23:45 | C.PDOC ---
History Of Present Illness 57 year old male presents to the ED for evaluation of auditory hallucinations. Patient is well known to the ED with multiple prior visits to the ED with similar presentation. Patient states the voices bother him but does not known what they are saying. Patient denies SI/HI, CP, SOB, weakness, numbness. Time Seen by Provider: 07/19/17 23:27 Chief Complaint (Nursing): Medical Clearance History Per: Patient History/Exam Limitations: clinical condition Onset/Duration Of Symptoms: Days Current Symptoms Are (Timing): Still Present Recent travel outside of the [place]: No Additional History Per: Patient Past Medical History Reviewed: Historical Data, Nursing Documentation, Vital Signs Vital Signs: Last Vital Signs Temp 97 F L 07/19/17 23:21 Pulse 80 07/19/17 23:21 Resp 14 07/19/17 23:21 BP 110/70 07/19/17 23:21 Pulse Ox 98 07/20/17 00:23 - Medical History PMH: Anxiety, Asthma, Bipolar Disorder, Depression, Gastritis, HTN, Paranoia, Personality Disorder, Schizophrenia, Seizures (pt has a history of Seizures.), Chronic Pain Denies: Diabetes, Hepatitis, HIV, Chronic Kidney Disease, Sexually Transmitted Disease Surgical History: No Surg Hx - [facility] Procedures APPLICATION OF SPLINT (04/09/14) CL FX REDUC-TIBIA/FIBULA (02/26/13) GROUP PSYCHOTHERAPY (06/01/17) INDIVID PSYCHOTHERAP NEC (12/17/13) INDIVIDUAL PSYCHOTHERAPY, BEHAVIORAL (01/29/16) INDIVIDUAL PSYCHOTHERAPY, COGNITIVE-BEHAVIORAL (07/30/16) INDIVIDUAL PSYCHOTHERAPY, SUPPORTIVE (06/01/17) MEDICATION MANAGEMENT (07/22/16) OTHER GROUP THERAPY (11/05/13) PSYCHIA INTERV/EVAL NEC (06/28/14) Family History: States: Unknown Family Hx - Social History Hx Tobacco Use: Yes Hx Alcohol Use: No Hx Substance Use: No - Immunization History Hx Tetanus Toxoid Vaccination: Yes Hx Influenza Vaccination: Yes Hx Pneumococcal Vaccination: Yes Review Of Systems Psych: Negative for: Depression, Psychosis, Suicidal ideation Physical Exam - Physical Exam Appears: Non-toxic, No Acute Distress, Unkempt Skin: Normal Color, Warm, Dry Head: Atraumatic, Normacephalic Eye(s): bilateral: Normal Inspection, PERRL Nose: No Discharge Oral Mucosa: Moist Teeth: Other (poor dentition) Neck: Normal ROM, Supple Chest: Symmetrical Extremity: Normal ROM Extremity: Bilateral: Atraumatic Neurological/Psych: Oriented x3, Normal Speech Gait: Steady ED Course And Treatment O2 Sat by Pulse Oximetry: 98 (On RA) Pulse Ox Interpretation: Normal Disposition Counseled Patient/Family Regarding: Diagnosis, Need For Followup - Disposition Disposition: HOME/ ROUTINE Disposition Time: 23:43 Condition: STABLE Additional Instructions: Please follow up in clinic Forms: [facility] (South African) - Clinical Impression Clinical Impression: Auditory hallucinations, Medical assessment - PA / CIRCULATION MANAGER / Resident Statement MD/DO has reviewed & agrees with the documentation as recorded. - Scribe Statement The provider has reviewed the documentation as recorded by the Scribe Jarod Jett All medical record entries made by the Scribe were at my direction and personally dictated by me. I have reviewed the chart and agree that the record accurately reflects my personal performance of the history, physical exam, medical decision making, and the department course for this patient. I have also personally directed, reviewed, and agree with the discharge instructions and disposition.
== END 2017-07-19 23:44 | disposition home or self-care (01) ==
LOC: C.ER 23:19
DX: Z04.8 Encounter for examination and observation for other specified reasons (principal); R44.0 Auditory hallucinations

== ENCOUNTER 2017-07-24 20:29 | Emergency (ER) | payer MEDICARE ==
[2017-07-24 20:29] VITALS: BMI 23.0
--- NOTE | 2017-07-24 20:56 | C.PDOC ---
History Of Present Illness 57 y/o male with a PMHx of schizophrenia presents to the ED complaining that he hears voices. Patient reports symptoms have been ongoing for years. No new changes. He denies any suicidal or homicidal ideation. Patient offers no physical complaints. Time Seen by Provider: 07/24/17 20:54 Chief Complaint (Nursing): Medical Clearance History Per: Patient History/Exam Limitations: no limitations Onset/Duration Of Symptoms: Days Current Symptoms Are (Timing): Still Present Past Medical History Reviewed: Historical Data, Nursing Documentation, Vital Signs Vital Signs: Last Vital Signs Temp 98 F 07/24/17 21:07 Pulse 76 07/24/17 21:07 Resp 20 07/24/17 21:07 BP 128/72 07/24/17 21:07 Pulse Ox 97 07/24/17 21:07 - Medical History PMH: Anxiety, Asthma, Bipolar Disorder, Depression, Gastritis, HTN, Paranoia, Personality Disorder, Schizophrenia, Seizures (pt has a history of Seizures.), Chronic Pain Denies: Diabetes, Hepatitis, HIV, Chronic Kidney Disease, Sexually Transmitted Disease Surgical History: - [facility] Procedures APPLICATION OF SPLINT (04/09/14) CL FX REDUC-TIBIA/FIBULA (02/26/13) GROUP PSYCHOTHERAPY (06/01/17) INDIVID PSYCHOTHERAP NEC (12/17/13) INDIVIDUAL PSYCHOTHERAPY, BEHAVIORAL (01/29/16) INDIVIDUAL PSYCHOTHERAPY, COGNITIVE-BEHAVIORAL (07/30/16) INDIVIDUAL PSYCHOTHERAPY, SUPPORTIVE (06/01/17) MEDICATION MANAGEMENT (07/22/16) OTHER GROUP THERAPY (11/05/13) PSYCHIA INTERV/EVAL NEC (06/28/14) Family History: States: Unknown Family Hx - Social History Hx Tobacco Use: Yes Hx Alcohol Use: No Hx Substance Use: No - Immunization History Hx Tetanus Toxoid Vaccination: Yes Hx Influenza Vaccination: Yes Hx Pneumococcal Vaccination: Yes Review Of Systems Except As Marked, All Systems Reviewed And Found Negative. Constitutional: Negative for: Fever Respiratory: Negative for: Shortness of Breath Psych: Positive for: Other (hearing voices, chronic). Negative for: Suicidal ideation Physical Exam - Physical Exam Appears: Non-toxic, No Acute Distress Skin: Warm, Dry Head: Atraumatic, Normacephalic Eye(s): bilateral: Normal Inspection Nose: Normal Neck: Normal ROM Chest: Symmetrical Cardiovascular: Rhythm Regular, No Murmur Respiratory: Normal Breath Sounds, No Accessory Muscle Use Gastrointestinal/Abdominal: Soft, No Tenderness, No Distention Extremity: Bilateral: Atraumatic, Normal ROM Neurological/Psych: Oriented x3, Normal Speech ED Course And Treatment O2 Sat by Pulse Oximetry: 97 (RA) Pulse Ox Interpretation: Normal Medical Decision Making Medical Decision Making: Impression: not intoxicated no new complaints baseline as per many prior evals Disposition Doctor Will See Patient In The: Office Counseled Patient/Family Regarding: Studies Performed, Diagnosis - Disposition Referrals: [facility] [Outside] [facility] [Outside] [email or web address] [Outside] Disposition: HOME/ ROUTINE Disposition Time: 20:55 Condition: GOOD Additional Instructions: seek nightly long-term placement seek outpatient psych follow-up Forms: General Discharge Instructions, [facility] (Comoran) - Clinical Impression Clinical Impression: Malingering - Scribe Statement The provider has reviewed the documentation as recorded by the Scribe (Roselyn Natarajan) Provider Attestation: All medical record entries made by the Scribe were at my direction and personally dictated by me. I have reviewed the chart and agree that the record accurately reflects my personal performance of the history, physical exam, medical decision making, and the department course for this patient. I have also personally directed, reviewed, and agree with the discharge instructions and disposition.
[2017-07-24 20:58] VITALS: RESP 20; TEMP 98
[2017-07-24 21:08] VITALS: BP 128/72; PULSE 76; O2SAT 97
== END 2017-07-24 21:34 | disposition home or self-care (01) ==
LOC: C.ER 20:29
DX: Z76.5 Malingerer [conscious simulation] (principal)

== ENCOUNTER 2017-07-25 03:44 | Emergency (ER) | payer MEDICARE ==
[2017-07-25 03:45] VITALS: BMI 23.0
--- NOTE | 2017-07-25 03:54 | C.PDOC ---
History Of Present Illness Patient presents to ED stating he is hearing voices. Patient has many visits with similar complaints. Patient reports he wants to sleep the night. Denies HI , SI, or any physical complaints. Time Seen by Provider: 07/25/17 03:53 History Per: Patient History/Exam Limitations: no limitations Onset/Duration Of Symptoms: Hrs Current Symptoms Are (Timing): Still Present Suicide/Self Injury Attempted (Context): None Modifying Factor(s): None Associated Symptoms: denies: Suicidal Thoughts, Suicidal Plan Involuntary Hold By: None Recent travel outside of the [place]: No Past Medical History Reviewed: Historical Data, Nursing Documentation, Vital Signs Vital Signs: Last Vital Signs Temp 97 F L 07/25/17 03:56 Pulse 70 07/25/17 03:56 Resp 14 07/25/17 03:56 BP 110/70 07/25/17 03:56 Pulse Ox 96 07/25/17 03:56 - Medical History PMH: Anxiety, Asthma, Bipolar Disorder, Depression, Gastritis, Hepatitis, HTN, Paranoia, Personality Disorder, Schizophrenia, Seizures (pt has a history of Seizures.), Chronic Pain Surgical History: - [facility] Procedures APPLICATION OF SPLINT (04/09/14) CL FX REDUC-TIBIA/FIBULA (02/26/13) GROUP PSYCHOTHERAPY (06/01/17) INDIVID PSYCHOTHERAP NEC (12/17/13) INDIVIDUAL PSYCHOTHERAPY, BEHAVIORAL (01/29/16) INDIVIDUAL PSYCHOTHERAPY, COGNITIVE-BEHAVIORAL (07/30/16) INDIVIDUAL PSYCHOTHERAPY, SUPPORTIVE (06/01/17) MEDICATION MANAGEMENT (07/22/16) OTHER GROUP THERAPY (11/05/13) PSYCHIA INTERV/EVAL NEC (06/28/14) Family History: States: Unknown Family Hx - Social History Hx Tobacco Use: Yes Hx Alcohol Use: No Hx Substance Use: No - Immunization History Hx Tetanus Toxoid Vaccination: Yes Hx Influenza Vaccination: Yes Hx Pneumococcal Vaccination: Yes Review Of Systems Constitutional: Negative for: Fever, Chills Respiratory: Negative for: Shortness of Breath Gastrointestinal: Negative for: Nausea, Vomiting, Abdominal Pain, Diarrhea Neurological: Negative for: Weakness, Numbness Psych: Negative for: Suicidal ideation Physical Exam - Physical Exam Appears: Non-toxic, No Acute Distress Skin: Warm, Dry Head: Normacephalic Eye(s): bilateral: Normal Inspection, PERRL, EOMI Oral Mucosa: Moist Neck: Trachea Midline, Supple Chest: Symmetrical, Tenderness Cardiovascular: Rhythm Regular Respiratory: No Decreased Breath Sounds, No Rales, No Rhonchi, No Wheezing Gastrointestinal/Abdominal: Soft, No Tenderness, No Distention Extremity: Normal ROM, No Deformity Extremity: Bilateral: Normal Color And Temperature, Normal ROM Neurological/Psych: Oriented x3 (awake and alert), Normal Speech Gait: Steady Disposition Counseled Patient/Family Regarding: Studies Performed, Diagnosis, Need For Followup - Disposition Disposition: HOME/ ROUTINE Disposition Time: 03:53 Condition: FAIR Instructions: Schizophrenia (DC) - Clinical Impression Clinical Impression: Schizophrenia - Scribe Statement The provider has reviewed the documentation as recorded by the Scribe Mini Hernández All medical record entries made by the Madhavibe were at my direction and personally dictated by me. I have reviewed the chart and agree that the record accurately reflects my personal performance of the history, physical exam, medical decision making, and the department course for this patient. I have also personally directed, reviewed, and agree with the discharge instructions and disposition.
[2017-07-25 03:59] VITALS: BP 110/70; PULSE 70; RESP 14; O2SAT 96
[2017-07-25 05:26] VITALS: TEMP 97.9
== END 2017-07-25 05:28 | disposition home or self-care (01) ==
LOC: C.ER 03:44
DX: F20.9 Schizophrenia, unspecified (principal); Z72.0 Tobacco use; I10 Essential (primary) hypertension

== ENCOUNTER 2017-07-26 12:53 | Emergency (ER) | payer MEDICARE ==
[2017-07-26 12:53] VITALS: BMI 23.0
[2017-07-26 12:59] VITALS: BP 134/84; PULSE 100; RESP 18; TEMP 98.4; O2SAT 98
--- NOTE | 2017-07-26 13:28 | C.PDOC ---
History Of Present Illness 57 year old male presents to the emergency department with complaints of hearing voices. Patient denies any acute injuries and reports that he stayed at [facility] yesterday. Time Seen by Provider: 07/26/17 13:25 Chief Complaint (Nursing): Medical Clearance History Per: Patient History/Exam Limitations: no limitations Past Medical History Reviewed: Historical Data, Nursing Documentation, Vital Signs Vital Signs: Last Vital Signs Temp 98.4 F 07/26/17 12:56 Pulse 100 H 07/26/17 12:56 Resp 18 07/26/17 12:56 BP 134/84 07/26/17 12:56 Pulse Ox 98 07/26/17 13:27 - Medical History PMH: Anxiety, Asthma, Bipolar Disorder, Depression, Gastritis, Hepatitis, HTN, Paranoia, Personality Disorder, Schizophrenia, Seizures (pt has a history of Seizures.), Chronic Pain Denies: Diabetes, HIV, Chronic Kidney Disease, Sexually Transmitted Disease Surgical History: No Surg Hx - [facility] Procedures APPLICATION OF SPLINT (04/09/14) CL FX REDUC-TIBIA/FIBULA (02/26/13) GROUP PSYCHOTHERAPY (06/01/17) INDIVID PSYCHOTHERAP NEC (12/17/13) INDIVIDUAL PSYCHOTHERAPY, BEHAVIORAL (01/29/16) INDIVIDUAL PSYCHOTHERAPY, COGNITIVE-BEHAVIORAL (07/30/16) INDIVIDUAL PSYCHOTHERAPY, SUPPORTIVE (06/01/17) MEDICATION MANAGEMENT (07/22/16) OTHER GROUP THERAPY (11/05/13) PSYCHIA INTERV/EVAL NEC (06/28/14) Family History: States: No Known Family Hx - Social History Hx Tobacco Use: Yes Hx Alcohol Use: No Hx Substance Use: No - Immunization History Hx Tetanus Toxoid Vaccination: Yes Hx Influenza Vaccination: Yes Hx Pneumococcal Vaccination: Yes Review Of Systems Except As Marked, All Systems Reviewed And Found Negative. Neurological: Positive for: Other (hallucination (hearing voices)) Physical Exam - Physical Exam Appears: Non-toxic, No Acute Distress Head: Atraumatic, Normacephalic Cardiovascular: Rhythm Regular Respiratory: Normal Breath Sounds Extremity: Normal ROM Neurological/Psych: Oriented x3, Normal Speech, Normal Cognition ED Course And Treatment O2 Sat by Pulse Oximetry: 98 (RA) Pulse Ox Interpretation: Normal Medical Decision Making Medical Decision Making: typical malingering, no acute issues Disposition Doctor Will See Patient In The: Office Counseled Patient/Family Regarding: Studies Performed, Diagnosis - Disposition Referrals: [facility] [Outside] [facility] [Outside] [facility] [Outside] [facility] [Outside] Disposition: HOME/ ROUTINE Disposition Time: 13:27 Condition: GOOD Additional Instructions: seek regular detention placement seek outpatient psych follow-up Instructions: Schizoaffective Disorder Forms: [employer] (Cuban) - Clinical Impression Clinical Impression: Schizoaffective disorder, Malingering - Scribe Statement The provider has reviewed the documentation as recorded by the Scribe (John Copeland) Provider Attestation: All medical record entries made by the Scribe were at my direction and personally dictated by me. I have reviewed the chart and agree that the record accurately reflects my personal performance of the history, physical exam, medical decision making, and the department course for this patient. I have also personally directed, reviewed, and agree with the discharge instructions and disposition.
== END 2017-07-26 13:25 | disposition home or self-care (01) ==
LOC: C.ER 12:53
DX: F25.9 Schizoaffective disorder, unspecified (principal); Z76.5 Malingerer [conscious simulation]

== ENCOUNTER 2017-07-27 23:35 | Emergency (ER) | payer MEDICARE ==
[2017-07-27 23:35] VITALS: BMI 23.0
[2017-07-27 23:45] VITALS: RESP 20
--- NOTE | 2017-07-28 00:19 | C.PDOC ---
History Of Present Illness 57 year old male presents to the ED requesting for a place to sleep and spend the night. Patient has multiple prior visits to the ED with the same presentation. Patient denies Si/HI, hallucinations, CP, SOB, weakness, numbness. Time Seen by Provider: 07/28/17 00:16 Chief Complaint (Nursing): Medical Clearance History Per: Patient History/Exam Limitations: no limitations Onset/Duration Of Symptoms: Hrs Current Symptoms Are (Timing): Still Present Recent travel outside of the [place]: No Additional History Per: Patient Past Medical History Reviewed: Historical Data, Nursing Documentation, Vital Signs Vital Signs: Last Vital Signs Temp 97.3 F L 07/28/17 04:21 Pulse 70 07/28/17 04:21 Resp 20 07/28/17 04:21 BP 116/77 07/28/17 04:21 Pulse Ox 100 07/28/17 04:21 - Medical History PMH: Anxiety, Asthma, Bipolar Disorder, Depression, Gastritis, Hepatitis, HTN, Paranoia, Personality Disorder, Schizophrenia, Seizures, Chronic Pain Denies: Diabetes, HIV, Chronic Kidney Disease, Sexually Transmitted Disease Surgical History: No Surg Hx - [facility] Procedures APPLICATION OF SPLINT (04/09/14) CL FX REDUC-TIBIA/FIBULA (02/26/13) GROUP PSYCHOTHERAPY (06/01/17) INDIVID PSYCHOTHERAP NEC (12/17/13) INDIVIDUAL PSYCHOTHERAPY, BEHAVIORAL (01/29/16) INDIVIDUAL PSYCHOTHERAPY, COGNITIVE-BEHAVIORAL (07/30/16) INDIVIDUAL PSYCHOTHERAPY, SUPPORTIVE (06/01/17) MEDICATION MANAGEMENT (07/22/16) OTHER GROUP THERAPY (11/05/13) PSYCHIA INTERV/EVAL NEC (06/28/14) Family History: States: Unknown Family Hx - Social History Hx Tobacco Use: Yes Hx Alcohol Use: No Hx Substance Use: No - Immunization History Hx Tetanus Toxoid Vaccination: No Hx Influenza Vaccination: No Hx Pneumococcal Vaccination: No Review Of Systems Constitutional: Negative for: Fever, Chills Cardiovascular: Negative for: Chest Pain Respiratory: Negative for: Shortness of Breath Gastrointestinal: Negative for: Abdominal Pain Skin: Negative for: Rash Neurological: Negative for: Weakness, Numbness Psych: Negative for: Depression, Suicidal ideation Physical Exam - Physical Exam Appears: Non-toxic, No Acute Distress Skin: Warm, Dry Head: Normacephalic Eye(s): bilateral: Normal Inspection Nose: No Discharge Oral Mucosa: Moist Neck: Normal ROM, Supple Chest: Symmetrical Cardiovascular: Rhythm Regular, No Murmur Respiratory: No Rales, No Rhonchi, No Wheezing Gastrointestinal/Abdominal: Soft, No Tenderness, No Guarding, No Rebound Extremity: No Tenderness, No Swelling Extremity: Bilateral: Normal Color And Temperature, Normal ROM Neurological/Psych: Oriented x3 Gait: Steady ED Course And Treatment O2 Sat by Pulse Oximetry: 99 (ON RA) Pulse Ox Interpretation: Normal Reevaluation Time: 05:28 Reassessment Condition: Improved Disposition Counseled Patient/Family Regarding: Studies Performed, Diagnosis, Need For Followup - Disposition Referrals: [facility] [Outside] Disposition: HOME/ ROUTINE Disposition Time: 00:18 Condition: FAIR Instructions: Schizophrenia (DC) Forms: [email or web address] (Omani) - Clinical Impression Clinical Impression: Schizophrenia - Scribe Statement The provider has reviewed the documentation as recorded by the Scribe Jarod Jett All medical record entries made by the Scribe were at my direction and personally dictated by me. I have reviewed the chart and agree that the record accurately reflects my personal performance of the history, physical exam, medical decision making, and the department course for this patient. I have also personally directed, reviewed, and agree with the discharge instructions and disposition.
[2017-07-28 04:23] VITALS: BP 116/77; PULSE 70; TEMP 97.3
[2017-07-28 05:28] VITALS: O2SAT 99
== END 2017-07-28 05:31 | disposition home or self-care (01) ==
LOC: C.ER 23:35
DX: F20.9 Schizophrenia, unspecified (principal); I10 Essential (primary) hypertension; Z72.0 Tobacco use

== ENCOUNTER 2017-07-29 04:00 | Emergency (ER) | payer MEDICARE ==
[2017-07-29 04:00] VITALS: BMI 23.0
[2017-07-29 04:19] VITALS: BP 109/77; PULSE 103; RESP 16; TEMP 97.9; O2SAT 99
--- NOTE | 2017-07-29 04:47 | C.PDOC ---
History Of Present Illness 57 year old male presents to the ED requesting a place to stay. Patient has multiple visits to the ED with similar presentation. Patient denies SI/HI, hallucinations, CP, SOB, abdominal pain. Time Seen by Provider: 07/29/17 04:27 Chief Complaint (Nursing): Medical Clearance History Per: Patient History/Exam Limitations: no limitations Onset/Duration Of Symptoms: Days Current Symptoms Are (Timing): Still Present Recent travel outside of the [place]: No Additional History Per: Patient Past Medical History Reviewed: Historical Data, Nursing Documentation, Vital Signs Vital Signs: Last Vital Signs Temp 97.9 F 07/29/17 04:13 Pulse 103 H 07/29/17 04:13 Resp 16 07/29/17 04:13 BP 109/77 07/29/17 04:13 Pulse Ox 99 07/29/17 04:47 - Medical History PMH: Anxiety, Asthma, Bipolar Disorder, Depression, Gastritis, Hepatitis, HTN, Paranoia, Personality Disorder, Schizophrenia, Seizures, Chronic Pain Denies: Diabetes, HIV, Chronic Kidney Disease, Sexually Transmitted Disease Surgical History: No Surg Hx - [facility] Procedures APPLICATION OF SPLINT (04/09/14) CL FX REDUC-TIBIA/FIBULA (02/26/13) GROUP PSYCHOTHERAPY (06/01/17) INDIVID PSYCHOTHERAP NEC (12/17/13) INDIVIDUAL PSYCHOTHERAPY, BEHAVIORAL (01/29/16) INDIVIDUAL PSYCHOTHERAPY, COGNITIVE-BEHAVIORAL (07/30/16) INDIVIDUAL PSYCHOTHERAPY, SUPPORTIVE (06/01/17) MEDICATION MANAGEMENT (07/22/16) OTHER GROUP THERAPY (11/05/13) PSYCHIA INTERV/EVAL NEC (06/28/14) Family History: States: Unknown Family Hx - Social History Hx Tobacco Use: Yes Hx Alcohol Use: No Hx Substance Use: No - Immunization History Hx Tetanus Toxoid Vaccination: No Hx Influenza Vaccination: Yes Hx Pneumococcal Vaccination: Yes Review Of Systems Constitutional: Negative for: Fever, Chills Cardiovascular: Negative for: Chest Pain Respiratory: Negative for: Shortness of Breath Gastrointestinal: Negative for: Abdominal Pain Skin: Negative for: Rash Psych: Negative for: Depression, Suicidal ideation Physical Exam - Physical Exam Appears: Non-toxic, No Acute Distress Skin: Normal Color, Warm, Dry Head: Atraumatic, Normacephalic Eye(s): bilateral: Normal Inspection Nose: No Discharge Oral Mucosa: Moist Neck: Normal ROM, Supple Chest: Symmetrical Cardiovascular: Rhythm Regular, No Murmur Respiratory: Normal Breath Sounds, No Rales, No Rhonchi, No Wheezing Gastrointestinal/Abdominal: Soft, No Tenderness, No Guarding, No Rebound Extremity: Normal ROM, No Tenderness, No Swelling Neurological/Psych: Oriented x3, Normal Motor, Normal Sensation Gait: Steady ED Course And Treatment O2 Sat by Pulse Oximetry: 99 (ON RA) Pulse Ox Interpretation: Normal Progress Note: Pt is sleeping comfortably and is stable for discharge Disposition - Disposition Disposition: HOME/ ROUTINE Disposition Time: 05:10 Condition: STABLE Forms: [employer] (Mexican) - Clinical Impression Clinical Impression: Malingering, Schizophrenia, chronic condition - PA / PEANUT BLANCHER / Resident Statement MD/DO has reviewed & agrees with the documentation as recorded. - Scribe Statement The provider has reviewed the documentation as recorded by the Scribe Jarod Jett All medical record entries made by the Scribe were at my direction and personally dictated by me. I have reviewed the chart and agree that the record accurately reflects my personal performance of the history, physical exam, medical decision making, and the department course for this patient. I have also personally directed, reviewed, and agree with the discharge instructions and disposition.
== END 2017-07-29 05:34 | disposition home or self-care (01) ==
LOC: C.ER 04:00
DX: Z76.5 Malingerer [conscious simulation] (principal); F20.9 Schizophrenia, unspecified

== ENCOUNTER 2017-07-30 03:24 | Emergency (ER) | payer MEDICARE ==
[2017-07-30 03:24] VITALS: BMI 23.0
[2017-07-30 03:45] VITALS: RESP 20; O2SAT 97
--- NOTE | 2017-07-30 04:02 | C.PDOC ---
History Of Present Illness 57 year old male presents to the ER requesting a place to spend the night. Denies any physical complaints at this time. Time Seen by Provider: 07/30/17 03:46 Chief Complaint (Nursing): Medical Clearance History Per: Patient History/Exam Limitations: no limitations Onset/Duration Of Symptoms: Hrs Recent travel outside of the [place]: No Past Medical History Reviewed: Historical Data, Nursing Documentation, Vital Signs Vital Signs: Last Vital Signs Temp 97.9 F 07/30/17 05:30 Pulse 72 07/30/17 05:30 Resp 20 07/30/17 05:30 BP 115/72 07/30/17 05:30 Pulse Ox 97 07/30/17 05:30 - Medical History PMH: Anxiety, Asthma, Bipolar Disorder, Depression, Gastritis, Hepatitis, HTN, Paranoia, Personality Disorder, Schizophrenia, Seizures, Chronic Pain Surgical History: - [facility] Procedures APPLICATION OF SPLINT (04/09/14) CL FX REDUC-TIBIA/FIBULA (02/26/13) GROUP PSYCHOTHERAPY (06/01/17) INDIVID PSYCHOTHERAP NEC (12/17/13) INDIVIDUAL PSYCHOTHERAPY, BEHAVIORAL (01/29/16) INDIVIDUAL PSYCHOTHERAPY, COGNITIVE-BEHAVIORAL (07/30/16) INDIVIDUAL PSYCHOTHERAPY, SUPPORTIVE (06/01/17) MEDICATION MANAGEMENT (07/22/16) OTHER GROUP THERAPY (11/05/13) PSYCHIA INTERV/EVAL NEC (06/28/14) Family History: States: Unknown Family Hx - Social History Hx Tobacco Use: Yes Hx Alcohol Use: No Hx Substance Use: No - Immunization History Hx Tetanus Toxoid Vaccination: No Hx Influenza Vaccination: Yes Hx Pneumococcal Vaccination: Yes Review Of Systems Constitutional: Negative for: Fever, Chills Respiratory: Negative for: Cough Gastrointestinal: Negative for: Nausea, Vomiting Physical Exam - Physical Exam Appears: Non-toxic, No Acute Distress Skin: Normal Color, Warm, Dry Head: Atraumatic, Normacephalic Chest: Symmetrical, No Tenderness Cardiovascular: Rhythm Regular Respiratory: Normal Breath Sounds, No Rales, No Rhonchi, No Wheezing Neurological/Psych: Oriented x3, Normal Speech Gait: Steady ED Course And Treatment O2 Sat by Pulse Oximetry: 97 (room air) Pulse Ox Interpretation: Normal Progress Note: Patient is resting comfortably in the ER in no acute distress, vitals are stable; patient is without any complaints and is safe for discharge. Disposition - Disposition Disposition: HOME/ ROUTINE Disposition Time: 04:01 Condition: STABLE Forms: General Discharge Instructions - POA Core Measure Indicators: Code Heart - Clinical Impression Clinical Impression: Encounter for medical assessment - PA / STRINGED INSTRUMENT ASSEMBLER / Resident Statement MD/DO has reviewed & agrees with the documentation as recorded. - Scribe Statement The provider has reviewed the documentation as recorded by the Scribe Howard Gottlieb All medical record entries made by the Scribe were at my direction and personally dictated by me. I have reviewed the chart and agree that the record accurately reflects my personal performance of the history, physical exam, medical decision making, and the department course for this patient. I have also personally directed, reviewed, and agree with the discharge instructions and disposition.
[2017-07-30 05:49] VITALS: BP 115/72; PULSE 72; TEMP 97.9
== END 2017-07-30 05:30 | disposition home or self-care (01) ==
LOC: C.ER 03:24
DX: Z04.8 Encounter for examination and observation for other specified reasons (principal)

== ENCOUNTER 2017-08-03 23:31 | Emergency (ER) | payer MEDICARE ==
[2017-08-03 23:31] VITALS: BMI 23.0
[2017-08-03 23:51] VITALS: BP 141/71; PULSE 82; RESP 20; TEMP 98.2; O2SAT 98
--- NOTE | 2017-08-04 | C.PDOC ---
History Of Present Illness 57 year old male presents to the ER requesting a place to spend the night, notes his sister is not home yet. Patient was discharged earlier today from the psych unit in [place] today. Denies physical complaints at this time. Time Seen by Provider: 08/03/17 23:49 Chief Complaint (Nursing): Medical Clearance History Per: Patient History/Exam Limitations: no limitations Recent travel outside of the [place]: No Past Medical History Reviewed: Historical Data, Nursing Documentation, Vital Signs Vital Signs: Last Vital Signs Temp 98.2 F 08/03/17 23:49 Pulse 82 08/03/17 23:49 Resp 20 08/03/17 23:49 BP 141/71 08/03/17 23:49 Pulse Ox 98 08/04/17 00:36 - Medical History PMH: Anxiety, Asthma, Bipolar Disorder, Depression, Gastritis, Hepatitis, HTN, Paranoia, Personality Disorder, Schizophrenia, Seizures, Chronic Pain Surgical History: - [facility] Procedures APPLICATION OF SPLINT (04/09/14) CL FX REDUC-TIBIA/FIBULA (02/26/13) GROUP PSYCHOTHERAPY (07/30/17) INDIVID PSYCHOTHERAP NEC (12/17/13) INDIVIDUAL PSYCHOTHERAPY, BEHAVIORAL (01/29/16) INDIVIDUAL PSYCHOTHERAPY, COGNITIVE-BEHAVIORAL (07/30/17) INDIVIDUAL PSYCHOTHERAPY, SUPPORTIVE (06/01/17) MEDICATION MANAGEMENT (07/22/16) OTHER GROUP THERAPY (11/05/13) PSYCHIA INTERV/EVAL NEC (06/28/14) Family History: States: Unknown Family Hx - Social History Hx Tobacco Use: Yes Hx Alcohol Use: No Hx Substance Use: No - Immunization History Hx Tetanus Toxoid Vaccination: No Hx Influenza Vaccination: No Hx Pneumococcal Vaccination: No Review Of Systems Constitutional: Negative for: Fever, Chills Cardiovascular: Negative for: Chest Pain, Palpitations Respiratory: Negative for: Cough, Shortness of Breath Gastrointestinal: Negative for: Nausea, Vomiting Physical Exam - Physical Exam Appears: Non-toxic, No Acute Distress, Unkempt Skin: Normal Color, Warm, Dry Head: Atraumatic, Normacephalic Eye(s): bilateral: Normal Inspection, EOMI Neck: Normal ROM, Supple Chest: Symmetrical, No Tenderness Cardiovascular: Rhythm Regular Respiratory: Normal Breath Sounds, No Rales, No Rhonchi, No Wheezing Gastrointestinal/Abdominal: Soft, No Tenderness Extremity: Normal ROM Extremity: Bilateral: Atraumatic Neurological/Psych: Oriented x3, Normal Speech Gait: Steady ED Course And Treatment O2 Sat by Pulse Oximetry: 98 (Room air) Pulse Ox Interpretation: Normal Disposition - Disposition Disposition: HOME/ ROUTINE Disposition Time: 00:01 Condition: STABLE Additional Instructions: Take medication as prescribed by psychiatrist. Follow up with your PMD in 1-2 days. 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 - Scribe Statement The provider has reviewed the documentation as recorded by the Scribalexis Gottlieb All medical record entries made by the Madhavibalexis were at my direction and personally dictated by me. I have reviewed the chart and agree that the record accurately reflects my personal performance of the history, physical exam, medical decision making, and the department course for this patient. I have also personally directed, reviewed, and agree with the discharge instructions and disposition.
== END 2017-08-04 00:39 | disposition home or self-care (01) ==
LOC: C.ER 23:31
DX: Z59.0 Homelessness (principal)

== ENCOUNTER 2017-08-04 20:49 | Emergency (ER) | payer MEDICARE ==
[2017-08-04 20:50] VITALS: BMI 23.0
[2017-08-04 20:54] VITALS: BP 113/72; PULSE 90; RESP 20; TEMP 98; O2SAT 98
--- NOTE | 2017-08-04 21:27 | C.PDOC ---
History Of Present Illness 57 year old male presents to the ED for evaluation of auditory hallucinations. Patient has multiple prior visits to the ED with the same presentation. Patient is requesting for a place to sleep. Patient denies SI/HI, visual hallucinations , CP, SOB, abdominal pain. Time Seen by Provider: 08/04/17 21:00 Chief Complaint (Nursing): Substance Abuse History Per: Patient History/Exam Limitations: no limitations Onset/Duration Of Symptoms: Days Current Symptoms Are (Timing): Still Present Suicide/Self Injury Attempted (Context): None Modifying Factor(s): None Associated Symptoms: denies: Depression, Suicidal Thoughts, Suicidal Plan Involuntary Hold By: None Recent travel outside of the [place]: No Additional History Per: Patient Past Medical History Reviewed: Historical Data, Nursing Documentation, Vital Signs Vital Signs: Last Vital Signs Temp 98 F 08/04/17 20:52 Pulse 90 08/04/17 20:52 Resp 20 08/04/17 20:52 BP 113/72 08/04/17 20:52 Pulse Ox 98 08/04/17 21:28 - Medical History PMH: Anxiety, Asthma, Bipolar Disorder, Depression, Gastritis, Hepatitis, HTN, Paranoia, Personality Disorder, Schizophrenia, Seizures, Chronic Pain Denies: Diabetes, Chronic Kidney Disease, Sexually Transmitted Disease Surgical History: No Surg Hx - [facility] Procedures APPLICATION OF SPLINT (04/09/14) CL FX REDUC-TIBIA/FIBULA (02/26/13) GROUP PSYCHOTHERAPY (07/30/17) INDIVID PSYCHOTHERAP NEC (12/17/13) INDIVIDUAL PSYCHOTHERAPY, BEHAVIORAL (01/29/16) INDIVIDUAL PSYCHOTHERAPY, COGNITIVE-BEHAVIORAL (07/30/17) INDIVIDUAL PSYCHOTHERAPY, SUPPORTIVE (06/01/17) MEDICATION MANAGEMENT (07/22/16) OTHER GROUP THERAPY (11/05/13) PSYCHIA INTERV/EVAL NEC (06/28/14) Family History: States: Unknown Family Hx - Social History Hx Tobacco Use: Yes Hx Alcohol Use: No Hx Substance Use: No - Immunization History Hx Tetanus Toxoid Vaccination: No Hx Influenza Vaccination: No Hx Pneumococcal Vaccination: No Review Of Systems Constitutional: Negative for: Fever, Chills Cardiovascular: Negative for: Chest Pain Respiratory: Negative for: Shortness of Breath Gastrointestinal: Negative for: Vomiting Skin: Negative for: Rash Psych: Positive for: Psychosis. Negative for: Depression, Suicidal ideation Physical Exam - Physical Exam Appears: Non-toxic, No Acute Distress Skin: Normal Color, Warm, Dry Head: Atraumatic, Normacephalic Eye(s): bilateral: Normal Inspection Nose: No Discharge Oral Mucosa: Moist Neck: Normal ROM, Supple Chest: Symmetrical Cardiovascular: Rhythm Regular, No Murmur Respiratory: Normal Breath Sounds, No Rales, No Rhonchi, No Wheezing Gastrointestinal/Abdominal: Soft, No Tenderness, No Guarding, No Rebound Extremity: Normal ROM, No Tenderness, No Swelling Neurological/Psych: Oriented x3, Normal Speech, Normal Cognition, Normal Motor, Normal Sensation Gait: Steady ED Course And Treatment O2 Sat by Pulse Oximetry: 98 (ON RA) Pulse Ox Interpretation: Normal Disposition - Disposition Disposition: HOME/ ROUTINE Disposition Time: 21:27 Condition: STABLE Additional Instructions: Follow up with the medical doctor/clinic within 1-2 days. Return if worsened. Instructions: Schizophrenia Forms: [facility] (Urdu) - Clinical Impression Clinical Impression: Schizophrenia, chronic condition, Malaise - PA / [employer] SUPERVISOR / Resident Statement MD/DO has reviewed & agrees with the documentation as recorded. - Scribe Statement The provider has reviewed the documentation as recorded by the Scribe Jarod Jett All medical record entries made by the Scribe were at my direction and personally dictated by me. I have reviewed the chart and agree that the record accurately reflects my personal performance of the history, physical exam, medical decision making, and the department course for this patient. I have also personally directed, reviewed, and agree with the discharge instructions and disposition.
== END 2017-08-04 21:41 | disposition home or self-care (01) ==
LOC: C.ER 20:49
DX: F20.9 Schizophrenia, unspecified (principal); R53.81 Other malaise

== ENCOUNTER 2017-08-05 18:14 | Emergency (ER) | payer MEDICARE ==
[2017-08-05 18:14] VITALS: BMI 23.0
[2017-08-05 18:29] VITALS: BP 100/71; PULSE 100; RESP 18; TEMP 98.8; O2SAT 100
--- NOTE | 2017-08-05 18:29 | C.PDOC ---
History Of Present Illness 57 y/o male presents to the ED requesting a place to stay. Patient complains of hearing voices, which is chronic. Also complains of abdominal discomfort. No acute complaints at this time. Patient denies any suicidal or homicidal ideation. Time Seen by Provider: 08/05/17 18:27 Chief Complaint (Nursing): Psychiatric Evaluation History Per: Patient History/Exam Limitations: no limitations Onset/Duration Of Symptoms: Days Current Symptoms Are (Timing): Still Present Past Medical History Reviewed: Historical Data, Nursing Documentation, Vital Signs Vital Signs: Last Vital Signs Temp 98.8 F 08/05/17 18:26 Pulse 100 H 08/05/17 18:26 Resp 18 08/05/17 18:26 BP 100/71 08/05/17 18:26 Pulse Ox 100 08/05/17 18:26 - Medical History PMH: Anxiety, Asthma, Bipolar Disorder, Depression, Gastritis, Hepatitis, HTN, Paranoia, Personality Disorder, Chronic Kidney Disease, Schizophrenia, Seizures , Chronic Pain Denies: Diabetes, Sexually Transmitted Disease Surgical History: - [facility] Procedures APPLICATION OF SPLINT (04/09/14) CL FX REDUC-TIBIA/FIBULA (02/26/13) GROUP PSYCHOTHERAPY (07/30/17) INDIVID PSYCHOTHERAP NEC (12/17/13) INDIVIDUAL PSYCHOTHERAPY, BEHAVIORAL (01/29/16) INDIVIDUAL PSYCHOTHERAPY, COGNITIVE-BEHAVIORAL (07/30/17) INDIVIDUAL PSYCHOTHERAPY, SUPPORTIVE (06/01/17) MEDICATION MANAGEMENT (07/22/16) OTHER GROUP THERAPY (11/05/13) PSYCHIA INTERV/EVAL NEC (06/28/14) Family History: States: Unknown Family Hx - Social History Hx Tobacco Use: Yes Hx Alcohol Use: No Hx Substance Use: No - Immunization History Hx Tetanus Toxoid Vaccination: No Hx Influenza Vaccination: No Hx Pneumococcal Vaccination: No Review Of Systems Except As Marked, All Systems Reviewed And Found Negative. Gastrointestinal: Positive for: Abdominal Pain (chronic) Psych: Positive for: Other (auditory hallucinations, chronic). Negative for: Suicidal ideation Physical Exam - Physical Exam Appears: Non-toxic, No Acute Distress Skin: Normal Color, Warm Head: Atraumatic, Normacephalic Eye(s): bilateral: Normal Inspection, PERRL, EOMI Oral Mucosa: Moist Neck: Normal ROM Chest: Symmetrical Cardiovascular: Rhythm Regular, No Murmur Respiratory: Normal Breath Sounds, No Rales, No Rhonchi, No Wheezing Gastrointestinal/Abdominal: Soft, No Tenderness, No Guarding, No Rebound Extremity: Bilateral: Atraumatic, Normal Color And Temperature, Normal ROM Neurological/Psych: Oriented x3, Normal Speech Medical Decision Making Medical Decision Making: Impression: malingering, no acute issues baseline per many prior evals. Abdomen soft, non-tender. Patient is stable for d/c home. Disposition Doctor Will See Patient In The: Office Counseled Patient/Family Regarding: Studies Performed, Diagnosis - Disposition Referrals: [facility] [Outside] [facility] [Outside] [facility] [Outside] Disposition: HOME/ ROUTINE Disposition Time: 18:28 Condition: GOOD Additional Instructions: seek nightly custodial placement seek outpatient psych follow-up Forms: General Discharge Instructions, [facility] (Romanian) - Clinical Impression Clinical Impression: Malingerer - Scribe Statement The provider has reviewed the documentation as recorded by the Scribe (Roselyn Natarajan) Provider Attestation: All medical record entries made by the Scribe were at my direction and personally dictated by me. I have reviewed the chart and agree that the record accurately reflects my personal performance of the history, physical exam, medical decision making, and the department course for this patient. I have also personally directed, reviewed, and agree with the discharge instructions and disposition.
== END 2017-08-05 18:40 | disposition home or self-care (01) ==
LOC: C.ER 18:14
DX: Z76.5 Malingerer [conscious simulation] (principal)

== ENCOUNTER 2017-08-07 21:13 | Emergency (ER) | payer MEDICARE ==
[2017-08-07 21:13] VITALS: BMI 23.0
[2017-08-07 21:35] VITALS: BP 115/80; PULSE 78; RESP 14; TEMP 98.5; O2SAT 100
--- NOTE | 2017-08-07 22:15 | C.PDOC ---
History Of Present Illness 57 y/o male with hx schizophrenia, well known to ED, presents with hearing voices 'for a long time', and requesting to sleep here because he has no where to go, was kicked out of sister's house. no medical complaints. no hi, si. pt chronically hears voices. Time Seen by Provider: 08/07/17 21:42 Chief Complaint (Nursing): Medical Clearance History Per: Patient History/Exam Limitations: no limitations Onset/Duration Of Symptoms: Days Current Symptoms Are (Timing): Still Present Severity: Mild Reports Recently: Seen In ED Past Medical History Reviewed: Historical Data, Nursing Documentation, Vital Signs Vital Signs: Last Vital Signs Temp 98.5 F 08/07/17 21:31 Pulse 78 08/07/17 21:31 Resp 14 08/07/17 21:31 BP 115/80 08/07/17 21:31 Pulse Ox 100 08/07/17 21:31 - Medical History PMH: Anxiety, Asthma, Bipolar Disorder, Depression, Gastritis, Hepatitis, HTN, Paranoia, Personality Disorder, Chronic Kidney Disease, Schizophrenia, Seizures , Chronic Pain Denies: Diabetes, Sexually Transmitted Disease Surgical History: - [facility] Procedures APPLICATION OF SPLINT (04/09/14) CL FX REDUC-TIBIA/FIBULA (02/26/13) GROUP PSYCHOTHERAPY (07/30/17) INDIVID PSYCHOTHERAP NEC (12/17/13) INDIVIDUAL PSYCHOTHERAPY, BEHAVIORAL (01/29/16) INDIVIDUAL PSYCHOTHERAPY, COGNITIVE-BEHAVIORAL (07/30/17) INDIVIDUAL PSYCHOTHERAPY, SUPPORTIVE (06/01/17) MEDICATION MANAGEMENT (07/22/16) OTHER GROUP THERAPY (11/05/13) PSYCHIA INTERV/EVAL NEC (06/28/14) Family History: States: Unknown Family Hx - Social History Hx Tobacco Use: Yes Hx Alcohol Use: No Hx Substance Use: No - Immunization History Hx Tetanus Toxoid Vaccination: No Hx Influenza Vaccination: No Hx Pneumococcal Vaccination: No Review Of Systems Constitutional: Negative for: Fever, Chills Cardiovascular: Negative for: Chest Pain Respiratory: Negative for: Cough, Shortness of Breath Gastrointestinal: Negative for: Vomiting, Abdominal Pain, Diarrhea Neurological: Negative for: Weakness, Numbness, Headache Physical Exam - Physical Exam Appears: Non-toxic, No Acute Distress Skin: Warm, Dry Head: Atraumatic, Normacephalic Oral Mucosa: Moist Teeth: Edentulous (partly) Neck: Supple Cardiovascular: Rhythm Regular, No Murmur Respiratory: No Decreased Breath Sounds, No Wheezing Gastrointestinal/Abdominal: Soft, No Tenderness Neurological/Psych: Oriented x3, Normal Speech, Normal Cognition ED Course And Treatment O2 Sat by Pulse Oximetry: 100 Medical Decision Making Medical Decision Making: pt who chronically hears voices, homeless. looking for a place to sleep. will d/ .c with [facility]. Disposition Counseled Patient/Family Regarding: Diagnosis, Need For Followup - Disposition Referrals: [facility] [Outside] Disposition: HOME/ ROUTINE Disposition Time: 22:18 Condition: GOOD Forms: [facility] (Faroese), General Discharge Instructions - Clinical Impression Clinical Impression: Schizophrenia, Homeless
== END 2017-08-07 22:33 | disposition home or self-care (01) ==
LOC: C.ER 21:13
DX: F20.9 Schizophrenia, unspecified (principal); Z59.0 Homelessness; Z72.0 Tobacco use

== ENCOUNTER 2017-08-09 13:29 | Emergency (ER) | payer MEDICARE ==
[2017-08-09 13:29] VITALS: BMI 23.0
[2017-08-09 13:34] VITALS: BP 134/86; PULSE 79; RESP 18; TEMP 98; O2SAT 100
== END 2017-08-09 14:29 | disposition left against medical advice (07) ==
LOC: C.ER 13:29
DX: Z02.89 Encounter for other administrative examinations (principal); R10.9 Unspecified abdominal pain

== ENCOUNTER 2017-08-11 01:43 | Emergency (ER) | payer MEDICARE ==
[2017-08-11 01:43] VITALS: BMI 23.0
[2017-08-11 03:07] VITALS: BP 114/82; PULSE 72; RESP 22; TEMP 98.2; O2SAT 96
--- NOTE | 2017-08-11 03:36 | C.PDOC ---
History Of Present Illness This pt is well known to this ER , presents c/o of feeling tired and requesting to rest. Pt denies trauma, CP, SOB, abdominal pain, URI sx, fever or weakness, no S/H ideations Time Seen by Provider: 08/11/17 03:33 Chief Complaint (Nursing): Medical Clearance History/Exam Limitations: no limitations Past Medical History Vital Signs: Last Vital Signs Temp 98.2 F 08/11/17 03:01 Pulse 72 08/11/17 03:01 Resp 22 08/11/17 03:01 BP 114/82 08/11/17 03:01 Pulse Ox 96 08/11/17 03:41 - Medical History PMH: Anxiety, Asthma, Bipolar Disorder, Depression, Gastritis, Hepatitis, HTN, Paranoia, Personality Disorder, Chronic Kidney Disease, Schizophrenia, Seizures , Chronic Pain Denies: Diabetes, HIV, Sexually Transmitted Disease Surgical History: No Surg Hx - [facility] Procedures APPLICATION OF SPLINT (04/09/14) CL FX REDUC-TIBIA/FIBULA (02/26/13) GROUP PSYCHOTHERAPY (07/30/17) INDIVID PSYCHOTHERAP NEC (12/17/13) INDIVIDUAL PSYCHOTHERAPY, BEHAVIORAL (01/29/16) INDIVIDUAL PSYCHOTHERAPY, COGNITIVE-BEHAVIORAL (07/30/17) INDIVIDUAL PSYCHOTHERAPY, SUPPORTIVE (06/01/17) MEDICATION MANAGEMENT (07/22/16) OTHER GROUP THERAPY (11/05/13) PSYCHIA INTERV/EVAL NEC (06/28/14) Family History: States: Unknown Family Hx - Social History Hx Tobacco Use: Yes Hx Alcohol Use: No Hx Substance Use: No - Immunization History Hx Tetanus Toxoid Vaccination: No Hx Influenza Vaccination: No Hx Pneumococcal Vaccination: No Review Of Systems Constitutional: Negative for: Fever Cardiovascular: Negative for: Chest Pain, Light Headedness Respiratory: Negative for: Cough, Shortness of Breath Gastrointestinal: Negative for: Vomiting, Abdominal Pain Neurological: Negative for: Weakness, Numbness Physical Exam - Physical Exam Appears: Well, Non-toxic Head: Atraumatic Eye(s): bilateral: Normal Inspection, PERRL, EOMI Neck: Supple Chest: Symmetrical Cardiovascular: Rhythm Regular Respiratory: Normal Breath Sounds Gastrointestinal/Abdominal: Normal Exam, Soft, No Tenderness Neurological/Psych: Oriented x3 Gait: Steady ED Course And Treatment O2 Sat by Pulse Oximetry: 96 Pulse Ox Interpretation: Normal Progress Note: Pt remains stable in ED in NAD. Pt is stable for discharge Disposition Counseled Patient/Family Regarding: Diagnosis, Need For Followup - Disposition Disposition: HOME/ ROUTINE Disposition Time: 03:37 Condition: STABLE Forms: General Discharge Instructions - Clinical Impression Clinical Impression: Psychiatric disorder, Homeless single person, Feeling tired
== END 2017-08-11 03:45 | disposition home or self-care (01) ==
LOC: C.ER 01:43
DX: F99 Mental disorder, not otherwise specified (principal); R53.83 Other fatigue; Z59.0 Homelessness

== ENCOUNTER 2017-08-11 17:51 | Emergency (ER) | payer MEDICARE ==
[2017-08-11 17:52] VITALS: BMI 23.0
== END 2017-08-11 19:04 | disposition left against medical advice (07) ==
LOC: C.ER 17:51
DX: Z02.89 Encounter for other administrative examinations (principal)

== ENCOUNTER 2017-08-11 23:33 | Emergency (ER) | payer MEDICARE ==
[2017-08-11 23:33] VITALS: BMI 23.0
[2017-08-11 23:58] VITALS: BP 150/88; O2SAT 100
--- NOTE | 2017-08-12 01:16 | C.PDOC ---
History Of Present Illness 57 year old male presents to the emergency department with complaints of "wanting to sleep". Patient states that he does not want to go home, and does not present with any focal/neural deficits in the ED. Chief Complaint (Nursing): Medical Clearance History Per: Patient History/Exam Limitations: no limitations Current Symptoms Are (Timing): Still Present Past Medical History Reviewed: Historical Data, Nursing Documentation, Vital Signs Vital Signs: Last Vital Signs Temp 98.2 F 08/11/17 23:54 Pulse 89 08/11/17 23:54 Resp 18 08/11/17 23:54 BP 150/88 08/11/17 23:54 Pulse Ox 100 08/12/17 01:17 - Medical History PMH: Anxiety, Asthma, Bipolar Disorder, Depression, Gastritis, Hepatitis, HTN, Paranoia, Personality Disorder, Chronic Kidney Disease, Schizophrenia, Seizures , Chronic Pain Denies: Diabetes, HIV, Sexually Transmitted Disease Surgical History: No Surg Hx - [facility] Procedures APPLICATION OF SPLINT (04/09/14) CL FX REDUC-TIBIA/FIBULA (02/26/13) GROUP PSYCHOTHERAPY (07/30/17) INDIVID PSYCHOTHERAP NEC (12/17/13) INDIVIDUAL PSYCHOTHERAPY, BEHAVIORAL (01/29/16) INDIVIDUAL PSYCHOTHERAPY, COGNITIVE-BEHAVIORAL (07/30/17) INDIVIDUAL PSYCHOTHERAPY, SUPPORTIVE (06/01/17) MEDICATION MANAGEMENT (07/22/16) OTHER GROUP THERAPY (11/05/13) PSYCHIA INTERV/EVAL NEC (06/28/14) Family History: States: Unknown Family Hx - Social History Hx Tobacco Use: Yes Hx Alcohol Use: No Hx Substance Use: No - Immunization History Hx Tetanus Toxoid Vaccination: No Hx Influenza Vaccination: No Hx Pneumococcal Vaccination: No Review Of Systems Except As Marked, All Systems Reviewed And Found Negative. Constitutional: Negative for: Fever, Chills Gastrointestinal: Negative for: Nausea, Vomiting Neurological: Positive for: Confusion, Altered Mental Status Psych: Negative for: Suicidal ideation Physical Exam - Physical Exam Appears: Non-toxic, No Acute Distress Cardiovascular: Rhythm Regular Respiratory: Normal Breath Sounds Gastrointestinal/Abdominal: Normal Exam, Soft, No Tenderness Neurological/Psych: Normal Speech, Normal Cognition ED Course And Treatment O2 Sat by Pulse Oximetry: 100 (RA) Pulse Ox Interpretation: Normal Disposition Counseled Patient/Family Regarding: Diagnosis - Disposition Referrals: Non [facility] Provider, [Primary Care Provider] - Disposition: HOME/ ROUTINE Disposition Time: 01:45 Condition: STABLE Forms: [facility] (Guinean) - POA Present On Arrival: None - Clinical Impression Clinical Impression: Homeless, Psychiatric disorder - Scribe Statement The provider has reviewed the documentation as recorded by the Scribe (John Copeland) Provider Attestation: All medical record entries made by the Scribe were at my direction and personally dictated by me. I have reviewed the chart and agree that the record accurately reflects my personal performance of the history, physical exam, medical decision making, and the department course for this patient. I have also personally directed, reviewed, and agree with the discharge instructions and disposition.
[2017-08-12 02:32] VITALS: PULSE 90; RESP 20; TEMP 98
== END 2017-08-12 02:31 | disposition home or self-care (01) ==
LOC: SUPCPDRO 23:33 → C.ER 23:33
DX: F99 Mental disorder, not otherwise specified (principal); Z59.0 Homelessness

== ENCOUNTER 2017-08-12 23:20 | Emergency (ER) | payer MEDICARE ==
[2017-08-12 23:20] VITALS: BMI 23.0
--- NOTE | 2017-08-13 01:06 | C.PDOC ---
History Of Present Illness 57 year old male presents to the hospital stating that he needs a place to stay. Patient has been seen in ED before for psychiatric evaluations. Time Seen by Provider: 08/13/17 01:04 Chief Complaint (Nursing): Psychiatric Evaluation History Per: Patient History/Exam Limitations: no limitations Onset/Duration Of Symptoms: Hrs Current Symptoms Are (Timing): Still Present Modifying Factor(s): None Severity: Moderate Involuntary Hold By: None Past Medical History Reviewed: Historical Data, Nursing Documentation, Vital Signs Vital Signs: Last Vital Signs Temp 98.6 F 08/12/17 23:32 Pulse 98 H 08/12/17 23:32 Resp 16 08/12/17 23:32 BP 119/79 08/12/17 23:32 Pulse Ox 99 08/13/17 01:18 - Medical History PMH: Anxiety, Asthma, Bipolar Disorder, Depression, Gastritis, Hepatitis, HTN, Paranoia, Personality Disorder, Chronic Kidney Disease, Schizophrenia, Seizures , Chronic Pain Denies: Diabetes, HIV, Sexually Transmitted Disease Surgical History: No Surg Hx - [facility] Procedures APPLICATION OF SPLINT (04/09/14) CL FX REDUC-TIBIA/FIBULA (02/26/13) GROUP PSYCHOTHERAPY (07/30/17) INDIVID PSYCHOTHERAP NEC (12/17/13) INDIVIDUAL PSYCHOTHERAPY, BEHAVIORAL (01/29/16) INDIVIDUAL PSYCHOTHERAPY, COGNITIVE-BEHAVIORAL (07/30/17) INDIVIDUAL PSYCHOTHERAPY, SUPPORTIVE (06/01/17) MEDICATION MANAGEMENT (07/22/16) OTHER GROUP THERAPY (11/05/13) PSYCHIA INTERV/EVAL NEC (06/28/14) Family History: States: No Known Family Hx - Social History Hx Tobacco Use: Yes Hx Alcohol Use: No Hx Substance Use: No - Immunization History Hx Tetanus Toxoid Vaccination: No Hx Influenza Vaccination: Yes Hx Pneumococcal Vaccination: Yes Review Of Systems Constitutional: Negative for: Fever, Chills Neurological: Positive for: Altered Mental Status Physical Exam - Physical Exam Appears: Non-toxic, No Acute Distress Skin: Warm, Dry Head: Atraumatic Eye(s): bilateral: Normal Inspection Oral Mucosa: Moist Neck: Trachea Midline, Supple Chest: Symmetrical Cardiovascular: Rhythm Regular Respiratory: Normal Breath Sounds Gastrointestinal/Abdominal: Soft, No Tenderness, No Guarding, No Rebound Extremity: Bilateral: Atraumatic Pulses: Left Dorsalis Pedis: Normal, Right Dorsalis Pedis: Normal Neurological/Psych: Oriented x3 Gait: Steady ED Course And Treatment O2 Sat by Pulse Oximetry: 99 (RA) Pulse Ox Interpretation: Normal Progress Note: Plan: Glucose POC Reevaluation Time: 05:02 Reassessment Condition: Improved Disposition Counseled Patient/Family Regarding: Studies Performed, Diagnosis, Need For Followup - Disposition Referrals: [facility] [Outside] Disposition: HOME/ ROUTINE Disposition Time: 01:05 Condition: FAIR Instructions: Schizophrenia (DC) Forms: [facility] (French) - Clinical Impression Clinical Impression: Schizophrenia - Scribe Statement The provider has reviewed the documentation as recorded by the Scribe (John Copeland) Provider Attestation: All medical record entries made by the Scribe were at my direction and personally dictated by me. I have reviewed the chart and agree that the record accurately reflects my personal performance of the history, physical exam, medical decision making, and the department course for this patient. I have also personally directed, reviewed, and agree with the discharge instructions and disposition.
[2017-08-13 05:12] VITALS: BP 121/82; PULSE 96; RESP 20; TEMP 98.3; O2SAT 97
== END 2017-08-13 05:23 | disposition home or self-care (01) ==
LOC: C.ER 23:20
DX: F20.9 Schizophrenia, unspecified (principal)

== ENCOUNTER 2017-08-22 01:47 | Emergency (ER) | payer MEDICARE ==
[2017-08-22 01:57] VITALS: RESP 18
--- NOTE | 2017-08-22 02:13 | C.PDOC ---
History Of Present Illness 57 year old male presents to the ER with a complaint of hearing voices. Denies suicidal ideation, ETOH use, or other complaints at this time. Time Seen by Provider: 08/22/17 02:10 Chief Complaint (Nursing): Psychiatric Evaluation History Per: Patient History/Exam Limitations: no limitations Onset/Duration Of Symptoms: Hrs Current Symptoms Are (Timing): Still Present Suicide/Self Injury Attempted (Context): None Modifying Factor(s): None Associated Symptoms: Other (Hearing voices). denies: Depression, Suicidal Thoughts Involuntary Hold By: None Recent travel outside of the [place]: No Past Medical History Reviewed: Historical Data, Nursing Documentation, Vital Signs Vital Signs: Last Vital Signs Temp 98.4 F 08/22/17 01:50 Pulse 83 08/22/17 01:50 Resp 18 08/22/17 01:50 BP 137/89 08/22/17 01:50 Pulse Ox 99 08/22/17 05:22 - Medical History PMH: Anxiety, Asthma, Bipolar Disorder, Depression, Diabetes, Gastritis, Hepatitis, HTN, Paranoia, Personality Disorder, Chronic Kidney Disease, Schizophrenia, Seizures, Chronic Pain Surgical History: - [facility] Procedures APPLICATION OF SPLINT (04/09/14) CL FX REDUC-TIBIA/FIBULA (02/26/13) GROUP PSYCHOTHERAPY (07/30/17) INDIVID PSYCHOTHERAP NEC (12/17/13) INDIVIDUAL PSYCHOTHERAPY, BEHAVIORAL (01/29/16) INDIVIDUAL PSYCHOTHERAPY, COGNITIVE-BEHAVIORAL (07/30/17) INDIVIDUAL PSYCHOTHERAPY, SUPPORTIVE (06/01/17) MEDICATION MANAGEMENT (07/22/16) OTHER GROUP THERAPY (11/05/13) PSYCHIA INTERV/EVAL NEC (06/28/14) Family History: States: Unknown Family Hx - Social History Hx Tobacco Use: Yes Hx Alcohol Use: No Hx Substance Use: No - Immunization History Hx Tetanus Toxoid Vaccination: No Hx Influenza Vaccination: Yes Hx Pneumococcal Vaccination: Yes Review Of Systems Constitutional: Negative for: Fever, Chills Cardiovascular: Negative for: Chest Pain, Palpitations Respiratory: Negative for: Cough, Shortness of Breath Psych: Positive for: Other (Hearing voices). Negative for: Suicidal ideation Physical Exam - Physical Exam Appears: Non-toxic, No Acute Distress Skin: Normal Color, Warm, Dry Head: Atraumatic, Normacephalic Eye(s): bilateral: Normal Inspection Oral Mucosa: Moist Chest: Symmetrical, No Tenderness Cardiovascular: Rhythm Regular Respiratory: Normal Breath Sounds, No Rales, No Rhonchi, No Wheezing Gastrointestinal/Abdominal: Soft, No Tenderness Neurological/Psych: Oriented x3, Normal Speech ED Course And Treatment O2 Sat by Pulse Oximetry: 99 (Room air) Pulse Ox Interpretation: Normal Disposition Counseled Patient/Family Regarding: Diagnosis - Disposition Referrals: [facility] [Outside] Disposition: HOME/ ROUTINE Disposition Time: 05:23 Condition: STABLE Forms: [facility] (Costa Rican) - POA Present On Arrival: None - Clinical Impression Clinical Impression: Homelessness, Hallucinations, Psychiatric disorder - Scribe Statement The provider has reviewed the documentation as recorded by the Scribalexis Gottlieb All medical record entries made by the Scribe were at my direction and personally dictated by me. I have reviewed the chart and agree that the record accurately reflects my personal performance of the history, physical exam, medical decision making, and the department course for this patient. I have also personally directed, reviewed, and agree with the discharge instructions and disposition.
[2017-08-22 05:37] VITALS: BP 130/70; PULSE 82; TEMP 98.2; O2SAT 95
== END 2017-08-22 05:37 | disposition home or self-care (01) ==
LOC: C.ER 01:47
DX: R44.0 Auditory hallucinations (principal); F99 Mental disorder, not otherwise specified; Z59.0 Homelessness

== ENCOUNTER 2017-08-24 23:55 | Emergency (ER) | payer MEDICARE ==
[2017-08-25 00:34] VITALS: BP 130/80; PULSE 80; RESP 14; TEMP 97; O2SAT 97
--- NOTE | 2017-08-25 05:44 | C.PDOC ---
History Of Present Illness <Jonelle Denise - Last Filed: 08/25/17 05:44> <Christi Edwards - Last Filed: 08/25/17 06:42> 57 year old male presents to the emergency department with no complaints. Patient is only seeking a place to stay for the night. (Christi Edwards) <Jonelle Denise - Last Filed: 08/25/17 05:44> History Per: Patient History/Exam Limitations: no limitations Onset/Duration Of Symptoms: Hrs <Christi Edwards - Last Filed: 08/25/17 06:42> Time Seen by Provider: 08/25/17 01:35 Chief Complaint (Nursing): Medical Clearance Past Medical History - Medical History PMH: Anxiety, Asthma, Bipolar Disorder, Depression, Diabetes, Gastritis, Hepatitis, HTN, Paranoia, Personality Disorder, Chronic Kidney Disease, Schizophrenia, Seizures, Chronic Pain Denies: HIV, Sexually Transmitted Disease Surgical History: Family History: States: Unknown Family Hx - Social History Hx Tobacco Use: Yes Hx Alcohol Use: No Hx Substance Use: No - Immunization History Hx Tetanus Toxoid Vaccination: No Hx Influenza Vaccination: Yes Hx Pneumococcal Vaccination: Yes <Jonelle Denise - Last Filed: 08/25/17 05:44> Reviewed: Historical Data, Nursing Documentation, Vital Signs Surgical History: No Surg Hx Family History: States: No Known Family Hx <Christi Edwards - Last Filed: 08/25/17 06:42> Vital Signs: Last Vital Signs Temp 97 F L 08/25/17 00:30 Pulse 80 08/25/17 00:30 Resp 14 08/25/17 00:30 BP 130/80 08/25/17 00:30 Pulse Ox 97 08/25/17 05:44 - [facility] Procedures APPLICATION OF SPLINT (04/09/14) CL FX REDUC-TIBIA/FIBULA (02/26/13) GROUP PSYCHOTHERAPY (07/30/17) INDIVID PSYCHOTHERAP NEC (12/17/13) INDIVIDUAL PSYCHOTHERAPY, BEHAVIORAL (01/29/16) INDIVIDUAL PSYCHOTHERAPY, COGNITIVE-BEHAVIORAL (07/30/17) INDIVIDUAL PSYCHOTHERAPY, SUPPORTIVE (06/01/17) MEDICATION MANAGEMENT (07/22/16) OTHER GROUP THERAPY (11/05/13) PSYCHIA INTERV/EVAL NEC (06/28/14) Review Of Systems Constitutional: Negative for: Fever Gastrointestinal: Negative for: Nausea, Vomiting, Abdominal Pain Neurological: Positive for: Altered Mental Status <Christi Edwards - Last Filed: 08/25/17 06:42> Physical Exam - Physical Exam Appears: Non-toxic, No Acute Distress Skin: Normal Color, Warm, Dry Head: Atraumatic, Normacephalic Eye(s): bilateral: Normal Inspection Nose: Normal Neck: Normal, Supple Chest: Symmetrical Cardiovascular: Rhythm Regular Respiratory: Normal Breath Sounds Gastrointestinal/Abdominal: Normal Exam, Soft, No Tenderness Neurological/Psych: Oriented x3, Normal Speech, Normal Cognition <Christi Edwards - Last Filed: 08/25/17 06:42> ED Course And Treatment O2 Sat by Pulse Oximetry: 97 <Jonelle Denise - Last Filed: 08/25/17 05:44> Pulse Ox Interpretation: Normal <Christi Edwards - Last Filed: 08/25/17 06:42> Disposition <Jonelle Denise - Last Filed: 08/25/17 05:44> - Disposition Disposition Time: 05:00 <Christi Edwards - Last Filed: 08/25/17 06:42> - Disposition Disposition: HOME/ ROUTINE Condition: STABLE Forms: [facility] (Yi) - Clinical Impression Clinical Impression: Encounter for limited medical examination <Jonelle Denise - Last Filed: 08/25/17 05:44> - 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 - Scribe Statement The provider has reviewed the documentation as recorded by the Scribe (John Cottrellqvi) <Christi Edwards - Last Filed: 08/25/17 06:42> - Scribe Statement All medical record entries made by the Scribe were at my direction and personally dictated by me. I have reviewed the chart and agree that the record accurately reflects my personal performance of the history, physical exam, medical decision making, and the department course for this patient. I have also personally directed, reviewed, and agree with the discharge instructions and disposition. (Christi Edwards)
== END 2017-08-25 03:08 | disposition home or self-care (01) ==
LOC: C.ER 23:55
DX: Z00.00 Encounter for general adult medical examination without abnormal findings (principal); F20.9 Schizophrenia, unspecified; Z72.0 Tobacco use

== ENCOUNTER 2017-09-05 00:08 | Emergency (ER) | payer MEDICARE ==
[2017-09-05 00:15] VITALS: BP 123/83; PULSE 88; RESP 16; TEMP 98.9; O2SAT 99
--- NOTE | 2017-09-05 00:19 | C.PDOC ---
History Of Present Illness 57 year old male presents to the emergency department seeking a place to stay. Patient is well known throughout the ED for malingering. Time Seen by Provider: 09/05/17 00:17 Chief Complaint (Nursing): Psychiatric Evaluation History Per: Patient History/Exam Limitations: no limitations Onset/Duration Of Symptoms: Hrs Current Symptoms Are (Timing): Gone Suicide/Self Injury Attempted (Context): None Modifying Factor(s): None Severity: None Past Medical History Reviewed: Historical Data, Nursing Documentation, Vital Signs Vital Signs: Last Vital Signs Temp 98.9 F 09/05/17 00:13 Pulse 88 09/05/17 00:13 Resp 16 09/05/17 00:13 BP 123/83 09/05/17 00:13 Pulse Ox 99 09/05/17 00:19 - Medical History PMH: Anxiety, Asthma, Bipolar Disorder, Depression, Diabetes, Gastritis, Hepatitis, HTN, Paranoia, Personality Disorder, Chronic Kidney Disease, Schizophrenia, Seizures, Chronic Pain Denies: HIV, Sexually Transmitted Disease Surgical History: No Surg Hx - [facility] Procedures APPLICATION OF SPLINT (04/09/14) CL FX REDUC-TIBIA/FIBULA (02/26/13) GROUP PSYCHOTHERAPY (07/30/17) INDIVID PSYCHOTHERAP NEC (12/17/13) INDIVIDUAL PSYCHOTHERAPY, BEHAVIORAL (01/29/16) INDIVIDUAL PSYCHOTHERAPY, COGNITIVE-BEHAVIORAL (07/30/17) INDIVIDUAL PSYCHOTHERAPY, SUPPORTIVE (06/01/17) MEDICATION MANAGEMENT (07/22/16) OTHER GROUP THERAPY (11/05/13) PSYCHIA INTERV/EVAL NEC (06/28/14) Family History: States: Unknown Family Hx - Social History Hx Tobacco Use: Yes Hx Alcohol Use: No Hx Substance Use: No - Immunization History Hx Tetanus Toxoid Vaccination: No Hx Influenza Vaccination: Yes Hx Pneumococcal Vaccination: Yes Review Of Systems Except As Marked, All Systems Reviewed And Found Negative. Neurological: Positive for: Altered Mental Status Physical Exam - Physical Exam Appears: Non-toxic, No Acute Distress Skin: Warm, Dry Head: Atraumatic, Normacephalic Eye(s): bilateral: Normal Inspection Nose: Normal Neck: Normal ROM, Supple Chest: Symmetrical Cardiovascular: Rhythm Regular, No Murmur Respiratory: Normal Breath Sounds Gastrointestinal/Abdominal: Normal Exam, Soft, No Tenderness, No Guarding, No Rebound Extremity: Normal ROM Neurological/Psych: Oriented x3 ED Course And Treatment O2 Sat by Pulse Oximetry: 99 (RA) Pulse Ox Interpretation: Normal Medical Decision Making Medical Decision Making: typical malingering no acute issues. baseline exam. Disposition Doctor Will See Patient In The: Office Counseled Patient/Family Regarding: Studies Performed, Diagnosis - Disposition Referrals: [facility] [Outside] [place] [facility] [Outside] [facility] [Outside] [facility] [Outside] Disposition: HOME/ ROUTINE Disposition Time: 00:18 Condition: GOOD Additional Instructions: seek nightly long-term placement seek outpatient psych follow-up Forms: General Discharge Instructions, [facility] (Cuban) - Clinical Impression Clinical Impression: Psychiatric disorder, Malingerer - Scribe Statement The provider has reviewed the documentation as recorded by the Scribe (John Copeland) Provider Attestation: All medical record entries made by the Scribe were at my direction and personally dictated by me. I have reviewed the chart and agree that the record accurately reflects my personal performance of the history, physical exam, medical decision making, and the department course for this patient. I have also personally directed, reviewed, and agree with the discharge instructions and disposition.
== END 2017-09-05 01:00 | disposition home or self-care (01) ==
LOC: C.ER 00:08
DX: R44.0 Auditory hallucinations (principal); Z76.5 Malingerer [conscious simulation]; F99 Mental disorder, not otherwise specified; F20.9 Schizophrenia, unspecified; I12.9 Hypertensive chronic kidney disease with stage 1 through stage 4 chronic kidney disease, or unspecified chronic kidney disease; N18.9 Chronic kidney disease, unspecified; Z72.0 Tobacco use

== ENCOUNTER 2017-09-05 21:39 | Emergency (ER) | payer MEDICARE ==
[2017-09-05 21:45] VITALS: BP 131/83; PULSE 88; RESP 14; TEMP 98.6; O2SAT 98
--- NOTE | 2017-09-05 22:12 | C.PDOC ---
History Of Present Illness 57 year old male presents to the emergency department with complaints of chronic auditory hallucinations. Patient states that he "keeps on hearing voices " but denies any suicidal or homicidal ideation at this time. Time Seen by Provider: 09/05/17 21:50 Chief Complaint (Nursing): Psychiatric Evaluation History Per: Patient History/Exam Limitations: no limitations Onset/Duration Of Symptoms: Hrs Current Symptoms Are (Timing): Still Present Suicide/Self Injury Attempted (Context): None Modifying Factor(s): None Associated Symptoms: denies: Suicidal Thoughts, Suicidal Plan, Other (homicidal ideation) Past Medical History Reviewed: Historical Data, Nursing Documentation, Vital Signs Vital Signs: Last Vital Signs Temp 98.6 F 09/05/17 21:42 Pulse 88 09/05/17 21:42 Resp 14 09/05/17 21:42 BP 131/83 09/05/17 21:42 Pulse Ox 98 09/05/17 22:38 - Medical History PMH: Anxiety, Asthma, Bipolar Disorder, Depression, Diabetes, Gastritis, Hepatitis, HTN, Paranoia, Personality Disorder, Chronic Kidney Disease, Schizophrenia, Seizures, Chronic Pain Denies: HIV, Sexually Transmitted Disease Surgical History: No Surg Hx - [facility] Procedures APPLICATION OF SPLINT (04/09/14) CL FX REDUC-TIBIA/FIBULA (02/26/13) GROUP PSYCHOTHERAPY (07/30/17) INDIVID PSYCHOTHERAP NEC (12/17/13) INDIVIDUAL PSYCHOTHERAPY, BEHAVIORAL (01/29/16) INDIVIDUAL PSYCHOTHERAPY, COGNITIVE-BEHAVIORAL (07/30/17) INDIVIDUAL PSYCHOTHERAPY, SUPPORTIVE (06/01/17) MEDICATION MANAGEMENT (07/22/16) OTHER GROUP THERAPY (11/05/13) PSYCHIA INTERV/EVAL NEC (06/28/14) Family History: States: Unknown Family Hx - Social History Hx Tobacco Use: Yes Hx Alcohol Use: No Hx Substance Use: No - Immunization History Hx Tetanus Toxoid Vaccination: No Hx Influenza Vaccination: Yes Hx Pneumococcal Vaccination: Yes Review Of Systems Except As Marked, All Systems Reviewed And Found Negative. Neurological: Positive for: Altered Mental Status Physical Exam - Physical Exam Appears: Non-toxic, No Acute Distress Skin: Warm, Dry Head: Atraumatic, Normacephalic Eye(s): bilateral: Normal Inspection Oral Mucosa: Moist Neck: Normal ROM, Supple Chest: Symmetrical Cardiovascular: Rhythm Regular, No Murmur Respiratory: Normal Breath Sounds, No Rales, No Rhonchi, No Wheezing Gastrointestinal/Abdominal: Soft, No Tenderness Extremity: Normal ROM Neurological/Psych: Oriented x3, Normal Speech, Normal Cognition ED Course And Treatment O2 Sat by Pulse Oximetry: 98 (RA) Pulse Ox Interpretation: Normal Medical Decision Making Medical Decision Making: Spoke with Dr. Roth, who says patient is clear for discharge home. Disposition Discussed With Dr.: Tanya Roth Counseled Patient/Family Regarding: Diagnosis, Need For Followup - Disposition Referrals: Tanya Roth MD [Staff Provider] - Disposition: HOME/ ROUTINE Disposition Time: 22:36 Condition: STABLE Additional Instructions: follow up with Dr. Roth in 2 days call to make an appointment take medications as prescribed return to ER if symptoms worsens or progress Instructions: Schizophrenia (DC) Forms: [facility] (Kiswahili), General Discharge Instructions - Clinical Impression Clinical Impression: Auditory hallucination - Scribe Statement The provider has reviewed the documentation as recorded by the Scribe (John Copeland) Provider Attestation: All medical record entries made by the Scribe were at my direction and personally dictated by me. I have reviewed the chart and agree that the record accurately reflects my personal performance of the history, physical exam, medical decision making, and the department course for this patient. I have also personally directed, reviewed, and agree with the discharge instructions and disposition.
== END 2017-09-05 23:01 | disposition home or self-care (01) ==
LOC: C.ER 21:39
DX: R44.0 Auditory hallucinations (principal); Z72.0 Tobacco use; I12.9 Hypertensive chronic kidney disease with stage 1 through stage 4 chronic kidney disease, or unspecified chronic kidney disease; N18.9 Chronic kidney disease, unspecified; F20.9 Schizophrenia, unspecified

== ENCOUNTER 2017-09-06 23:21 | Emergency (ER) | payer MEDICARE ==
[2017-09-06 23:44] VITALS: BP 126/75; PULSE 91; RESP 16; TEMP 98.3; O2SAT 99
--- NOTE | 2017-09-07 00:10 | C.PDOC ---
Time Seen by Provider: 09/07/17 00:08 Chief Complaint (Nursing): Medical Clearance Past Medical History Vital Signs: Last Vital Signs Temp 98.3 F 09/06/17 23:42 Pulse 91 H 09/06/17 23:42 Resp 16 09/06/17 23:42 BP 126/75 09/06/17 23:42 Pulse Ox 99 09/06/17 23:42 - Medical History PMH: Anxiety, Asthma, Bipolar Disorder, Depression, Diabetes, Gastritis, Hepatitis, HTN, Paranoia, Personality Disorder, Chronic Kidney Disease, Schizophrenia, Seizures, Chronic Pain Denies: HIV, Sexually Transmitted Disease Surgical History: - [facility] Procedures APPLICATION OF SPLINT (04/09/14) CL FX REDUC-TIBIA/FIBULA (02/26/13) GROUP PSYCHOTHERAPY (07/30/17) INDIVID PSYCHOTHERAP NEC (12/17/13) INDIVIDUAL PSYCHOTHERAPY, BEHAVIORAL (01/29/16) INDIVIDUAL PSYCHOTHERAPY, COGNITIVE-BEHAVIORAL (07/30/17) INDIVIDUAL PSYCHOTHERAPY, SUPPORTIVE (06/01/17) MEDICATION MANAGEMENT (07/22/16) OTHER GROUP THERAPY (11/05/13) PSYCHIA INTERV/EVAL NEC (06/28/14) Family History: States: Unknown Family Hx - Social History Hx Tobacco Use: Yes Hx Alcohol Use: No Hx Substance Use: No - Immunization History Hx Tetanus Toxoid Vaccination: No Hx Influenza Vaccination: Yes Hx Pneumococcal Vaccination: Yes ED Course And Treatment O2 Sat by Pulse Oximetry: 99 Medical Decision Making Medical Decision Making: malingering, no acute issues Disposition Doctor Will See Patient In The: Office Counseled Patient/Family Regarding: Studies Performed, Diagnosis - Disposition Disposition: HOME/ ROUTINE Disposition Time: 00:09 Condition: GOOD - Clinical Impression Clinical Impression: Homeless, Malingerer
== END 2017-09-07 00:25 | disposition home or self-care (01) ==
LOC: C.ER 23:21
DX: Z76.5 Malingerer [conscious simulation] (principal); Z59.0 Homelessness; Z72.0 Tobacco use; F20.9 Schizophrenia, unspecified; I12.9 Hypertensive chronic kidney disease with stage 1 through stage 4 chronic kidney disease, or unspecified chronic kidney disease; N18.9 Chronic kidney disease, unspecified

== ENCOUNTER 2017-09-07 22:26 | Emergency (ER) | payer MEDICARE ==
[2017-09-07 22:32] VITALS: BP 123/84; PULSE 94; RESP 16; TEMP 97.9; O2SAT 98
--- NOTE | 2017-09-07 22:42 | C.PDOC ---
History Of Present Illness Contrary to traige note, patient states he needs a place to sleep. Denies any suicidal or homicidal ideation. No f/c/n/v. No abdominal pain. Eating a sandwich. Time Seen by Provider: 09/07/17 22:37 Chief Complaint (Nursing): Abdominal Pain History Per: Patient History/Exam Limitations: no limitations Onset/Duration Of Symptoms: Days Current Symptoms Are (Timing): Gone Context: Other Severity: None Location Of Pain/Discomfort: Epigastric Radiation Of Pain To:: None Quality Of Discomfort: Dull Associated Symptoms: denies: Fever Exacerbating Factors: None Alleviating Factors: None Last Bowel Movement: Today Recent travel outside of the [place]: No Additional History Per: Patient Past Medical History Reviewed: Historical Data, Nursing Documentation, Vital Signs Vital Signs: Last Vital Signs Temp 97.9 F 09/07/17 22:31 Pulse 94 H 09/07/17 22:31 Resp 16 09/07/17 22:31 BP 123/84 09/07/17 22:31 Pulse Ox 98 09/07/17 22:31 - Medical History PMH: Anxiety, Asthma, Bipolar Disorder, Depression, Diabetes, Gastritis, Hepatitis, HTN, Paranoia, Personality Disorder, Chronic Kidney Disease, Schizophrenia, Seizures, Chronic Pain Denies: HIV, Sexually Transmitted Disease Surgical History: - [facility] Procedures APPLICATION OF SPLINT (04/09/14) CL FX REDUC-TIBIA/FIBULA (02/26/13) GROUP PSYCHOTHERAPY (07/30/17) INDIVID PSYCHOTHERAP NEC (12/17/13) INDIVIDUAL PSYCHOTHERAPY, BEHAVIORAL (01/29/16) INDIVIDUAL PSYCHOTHERAPY, COGNITIVE-BEHAVIORAL (07/30/17) INDIVIDUAL PSYCHOTHERAPY, SUPPORTIVE (06/01/17) MEDICATION MANAGEMENT (07/22/16) OTHER GROUP THERAPY (11/05/13) PSYCHIA INTERV/EVAL NEC (06/28/14) Family History: States: No Known Family Hx - Social History Hx Tobacco Use: Yes Hx Alcohol Use: No Hx Substance Use: No - Immunization History Hx Tetanus Toxoid Vaccination: No Hx Influenza Vaccination: Yes Hx Pneumococcal Vaccination: Yes Review Of Systems Constitutional: Negative for: Fever, Chills Cardiovascular: Negative for: Chest Pain Respiratory: Negative for: Shortness of Breath Gastrointestinal: Negative for: Nausea, Vomiting, Abdominal Pain Musculoskeletal: Negative for: Back Pain Skin: Negative for: Rash Neurological: Negative for: Weakness Psych: Negative for: Anxiety, Suicidal ideation Physical Exam - Physical Exam Appears: Non-toxic, No Acute Distress Skin: Warm, Dry Chest: Symmetrical Cardiovascular: Rhythm Regular Respiratory: No Rales, No Rhonchi, No Wheezing Gastrointestinal/Abdominal: Soft, No Tenderness, No Distention, No Guarding Extremity: Normal ROM Neurological/Psych: Oriented x3 Gait: Steady ED Course And Treatment O2 Sat by Pulse Oximetry: 98 Disposition Counseled Patient/Family Regarding: Studies Performed, Diagnosis, Need For Followup - Disposition Referrals: [facility] [Outside] Disposition: HOME/ ROUTINE Disposition Time: 22:39 Condition: FAIR Instructions: Schizophrenia (DC) - Clinical Impression Clinical Impression: Chronic schizophrenia
== END 2017-09-07 23:14 | disposition home or self-care (01) ==
LOC: C.ER 22:26
DX: F20.9 Schizophrenia, unspecified (principal)

== ENCOUNTER 2017-09-09 12:53 | Emergency (ER) | payer MEDICARE ==
[2017-09-09 13:25] VITALS: BP 133/87; PULSE 109; RESP 20; TEMP 97.7; O2SAT 97
== END 2017-09-09 13:08 | disposition left against medical advice (07) ==
LOC: C.ER 12:53
DX: Z02.89 Encounter for other administrative examinations (principal); R44.0 Auditory hallucinations

== ENCOUNTER 2017-09-14 01:59 | Emergency (ER) | payer MEDICARE ==
[2017-09-14 02:10] VITALS: RESP 20; TEMP 98.5
--- NOTE | 2017-09-14 02:24 | C.PDOC ---
History Of Present Illness 57 year old male presents to the ER requesting a place to spend the night. Denies physical complaints at this time. Time Seen by Provider: 09/14/17 02:01 Chief Complaint (Nursing): Psychiatric Evaluation History Per: Patient History/Exam Limitations: no limitations Suicide/Self Injury Attempted (Context): None Modifying Factor(s): None Associated Symptoms: denies: Depression, Suicidal Thoughts Involuntary Hold By: None Recent travel outside of the [place]: No Past Medical History Reviewed: Historical Data, Nursing Documentation, Vital Signs Vital Signs: Last Vital Signs Temp 98.5 F 09/14/17 02:09 Pulse 76 09/14/17 02:09 Resp 20 09/14/17 02:09 BP 117/75 09/14/17 02:09 Pulse Ox 95 09/14/17 02:09 - Medical History PMH: Anxiety, Asthma, Bipolar Disorder, Depression, Diabetes, Gastritis, Hepatitis, HTN, Paranoia, Personality Disorder, Chronic Kidney Disease, Schizophrenia, Seizures, Chronic Pain Surgical History: - [facility] Procedures APPLICATION OF SPLINT (04/09/14) CL FX REDUC-TIBIA/FIBULA (02/26/13) GROUP PSYCHOTHERAPY (07/30/17) INDIVID PSYCHOTHERAP NEC (12/17/13) INDIVIDUAL PSYCHOTHERAPY, BEHAVIORAL (01/29/16) INDIVIDUAL PSYCHOTHERAPY, COGNITIVE-BEHAVIORAL (07/30/17) INDIVIDUAL PSYCHOTHERAPY, SUPPORTIVE (06/01/17) MEDICATION MANAGEMENT (07/22/16) OTHER GROUP THERAPY (11/05/13) PSYCHIA INTERV/EVAL NEC (06/28/14) Family History: States: Unknown Family Hx - Social History Hx Tobacco Use: Yes Hx Alcohol Use: No Hx Substance Use: No - Immunization History Hx Tetanus Toxoid Vaccination: No Hx Influenza Vaccination: No Hx Pneumococcal Vaccination: No Review Of Systems Except As Marked, All Systems Reviewed And Found Negative. Physical Exam - Physical Exam Appears: Non-toxic, No Acute Distress Skin: Normal Color, Warm, Dry Head: Atraumatic, Normacephalic Eye(s): bilateral: Normal Inspection Oral Mucosa: Moist Chest: Symmetrical, No Tenderness Cardiovascular: Rhythm Regular Respiratory: Normal Breath Sounds, No Rales, No Rhonchi, No Wheezing Extremity: Normal ROM (x4) Neurological/Psych: Oriented x3, Normal Speech Disposition - Disposition Referrals: [facility] [Outside] Disposition: HOME/ ROUTINE Disposition Time: 03:38 Condition: FAIR Additional Instructions: Follow up with the medical doctor within 1-2 days. Return if worsened. 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 - Scribe Statement The provider has reviewed the documentation as recorded by the Scribalexis Gottlieb All medical record entries made by the Mahdavibalexis were at my direction and personally dictated by me. I have reviewed the chart and agree that the record accurately reflects my personal performance of the history, physical exam, medical decision making, and the department course for this patient. I have also personally directed, reviewed, and agree with the discharge instructions and disposition.
[2017-09-14 06:33] VITALS: BP 141/80; PULSE 80; O2SAT 99
== END 2017-09-14 05:30 | disposition home or self-care (01) ==
LOC: C.ER 01:59
DX: Z76.5 Malingerer [conscious simulation] (principal); Z59.0 Homelessness

== ENCOUNTER 2017-09-14 23:35 | Emergency (ER) | payer MEDICARE ==
[2017-09-14 23:52] VITALS: BP 122/74; PULSE 84; RESP 20; TEMP 98; O2SAT 97
--- NOTE | 2017-09-15 00:12 | C.PDOC ---
History Of Present Illness 57 year old male presents to the ED requesting for a place to spend the night and sleep. Patient has multiple prior visits to the ED with similar presentation. Patient denies SI/HI, hallucinations, CP, palpitations, SOB, abdominal pain. Time Seen by Provider: 09/15/17 00:02 Chief Complaint (Nursing): Medical Clearance History Per: Patient History/Exam Limitations: no limitations Onset/Duration Of Symptoms: Hrs Current Symptoms Are (Timing): Still Present Recent travel outside of the [place]: No Additional History Per: Patient Past Medical History Reviewed: Historical Data, Nursing Documentation, Vital Signs Vital Signs: Last Vital Signs Temp 98 F 09/14/17 23:49 Pulse 84 09/14/17 23:49 Resp 20 09/15/17 00:17 BP 122/74 09/14/17 23:49 Pulse Ox 97 09/15/17 00:13 - Medical History PMH: Anxiety, Asthma, Bipolar Disorder, Depression, Diabetes, Gastritis, Hepatitis, HTN, Paranoia, Personality Disorder, Chronic Kidney Disease, Schizophrenia, Seizures, Chronic Pain Denies: HIV, Sexually Transmitted Disease Surgical History: No Surg Hx - [facility] Procedures APPLICATION OF SPLINT (04/09/14) CL FX REDUC-TIBIA/FIBULA (02/26/13) GROUP PSYCHOTHERAPY (07/30/17) INDIVID PSYCHOTHERAP NEC (12/17/13) INDIVIDUAL PSYCHOTHERAPY, BEHAVIORAL (01/29/16) INDIVIDUAL PSYCHOTHERAPY, COGNITIVE-BEHAVIORAL (07/30/17) INDIVIDUAL PSYCHOTHERAPY, SUPPORTIVE (06/01/17) MEDICATION MANAGEMENT (07/22/16) OTHER GROUP THERAPY (11/05/13) PSYCHIA INTERV/EVAL NEC (06/28/14) Family History: States: Unknown Family Hx - Social History Hx Tobacco Use: Yes Hx Alcohol Use: No Hx Substance Use: No - Immunization History Hx Tetanus Toxoid Vaccination: No Hx Influenza Vaccination: No Hx Pneumococcal Vaccination: No Review Of Systems Constitutional: Negative for: Fever, Chills Cardiovascular: Negative for: Chest Pain Respiratory: Negative for: Shortness of Breath Gastrointestinal: Negative for: Nausea, Vomiting Skin: Negative for: Rash Psych: Negative for: Depression, Suicidal ideation Physical Exam - Physical Exam Appears: Non-toxic, No Acute Distress, Unkempt Skin: Normal Color, Warm, Dry Head: Atraumatic, Normacephalic Eye(s): bilateral: Normal Inspection Oral Mucosa: Moist Neck: Normal ROM, Supple Chest: Symmetrical Cardiovascular: Rhythm Regular Respiratory: Normal Breath Sounds, No Rales, No Rhonchi, No Wheezing Gastrointestinal/Abdominal: Soft, No Tenderness, No Guarding, No Rebound Extremity: Normal ROM, No Tenderness, No Swelling Neurological/Psych: Oriented x3, Normal Speech Gait: Steady ED Course And Treatment O2 Sat by Pulse Oximetry: 97 (ON RA) Pulse Ox Interpretation: Normal Disposition Counseled Patient/Family Regarding: Diagnosis, Need For Followup - Disposition Referrals: [facility] [Outside] Disposition: HOME/ ROUTINE Disposition Time: 00:10 Condition: STABLE Additional Instructions: Please follow up in clinic Return to ER if worse Forms: General Discharge Instructions - Clinical Impression Clinical Impression: Medical assessment - PA / INOCULATOR / Resident Statement MD/DO has reviewed & agrees with the documentation as recorded. - Scribe Statement The provider has reviewed the documentation as recorded by the Scribe Jarod Jett All medical record entries made by the Scribe were at my direction and personally dictated by me. I have reviewed the chart and agree that the record accurately reflects my personal performance of the history, physical exam, medical decision making, and the department course for this patient. I have also personally directed, reviewed, and agree with the discharge instructions and disposition.
== END 2017-09-15 00:17 | disposition home or self-care (01) ==
LOC: C.ER 23:35
DX: Z00.8 Encounter for other general examination (principal)

== ENCOUNTER 2017-09-17 21:28 | Emergency (ER) | payer MEDICARE ==
[2017-09-17 22:11] VITALS: BP 135/82; PULSE 78; RESP 20; TEMP 98; O2SAT 97
--- NOTE | 2017-09-17 22:55 | C.PDOC ---
History Of Present Illness 57 year old male presents to the ER requesting a place to spend the night. Patient has been seen multiple times in the past for the request. Denies any medical complaints at this time. Time Seen by Provider: 09/17/17 22:34 Chief Complaint (Nursing): Medical Clearance History Per: Patient History/Exam Limitations: no limitations Onset/Duration Of Symptoms: Hrs Current Symptoms Are (Timing): Still Present Recent travel outside of the [place]: No Past Medical History Reviewed: Historical Data, Nursing Documentation, Vital Signs Vital Signs: Last Vital Signs Temp 98 F 09/17/17 22:06 Pulse 78 09/17/17 22:06 Resp 20 09/17/17 22:06 BP 135/82 09/17/17 22:06 Pulse Ox 97 09/17/17 22:55 - Medical History PMH: Anxiety, Asthma, Bipolar Disorder, Depression, Diabetes, Gastritis, Hepatitis, HTN, Paranoia, Personality Disorder, Chronic Kidney Disease, Schizophrenia, Seizures, Chronic Pain Surgical History: - [facility] Procedures APPLICATION OF SPLINT (04/09/14) CL FX REDUC-TIBIA/FIBULA (02/26/13) GROUP PSYCHOTHERAPY (07/30/17) INDIVID PSYCHOTHERAP NEC (12/17/13) INDIVIDUAL PSYCHOTHERAPY, BEHAVIORAL (01/29/16) INDIVIDUAL PSYCHOTHERAPY, COGNITIVE-BEHAVIORAL (07/30/17) INDIVIDUAL PSYCHOTHERAPY, SUPPORTIVE (06/01/17) MEDICATION MANAGEMENT (07/22/16) OTHER GROUP THERAPY (11/05/13) PSYCHIA INTERV/EVAL NEC (06/28/14) Family History: States: Unknown Family Hx - Social History Hx Tobacco Use: Yes Hx Alcohol Use: No Hx Substance Use: No - Immunization History Hx Tetanus Toxoid Vaccination: No Hx Influenza Vaccination: No Hx Pneumococcal Vaccination: No Review Of Systems Constitutional: Negative for: Fever, Chills Respiratory: Negative for: Cough Gastrointestinal: Negative for: Nausea, Vomiting, Abdominal Pain Physical Exam - Physical Exam Appears: Non-toxic Skin: Normal Color, Warm, Dry Head: Atraumatic, Normacephalic Eye(s): bilateral: Normal Inspection Chest: Symmetrical, No Tenderness Cardiovascular: Rhythm Regular Respiratory: Normal Breath Sounds, No Rales, No Rhonchi, No Wheezing Neurological/Psych: Oriented x3, Normal Speech Gait: Steady ED Course And Treatment O2 Sat by Pulse Oximetry: 97 (Room air) Pulse Ox Interpretation: Normal Progress Note: Patient is resting comfortably in the ER with no acute complaints , will discharge home. Disposition Counseled Patient/Family Regarding: Diagnosis, Need For Followup - Disposition Referrals: [facility] [Outside] Disposition: HOME/ ROUTINE Disposition Time: 22:54 Condition: STABLE Forms: General Discharge Instructions - Clinical Impression Clinical Impression: Normal exam - PA / KIESELGUHR REGENERATOR OPERATOR / Resident Statement MD/DO has reviewed & agrees with the documentation as recorded. - Scribe Statement The provider has reviewed the documentation as recorded by the Scribalexis Gottlieb All medical record entries made by the Leonard were at my direction and personally dictated by me. I have reviewed the chart and agree that the record accurately reflects my personal performance of the history, physical exam, medical decision making, and the department course for this patient. I have also personally directed, reviewed, and agree with the discharge instructions and disposition.
== END 2017-09-17 23:04 | disposition home or self-care (01) ==
LOC: C.ER 21:28
DX: Z04.8 Encounter for examination and observation for other specified reasons (principal)

== ENCOUNTER 2017-09-18 20:50 | Emergency (ER) | payer MEDICARE ==
[2017-09-18 20:50] VITALS: BMI 23.0
[2017-09-18 21:19] VITALS: TEMP 98.5
--- NOTE | 2017-09-18 23:13 | C.PDOC ---
History Of Present Illness Patient is a 57 y/o male who presents to the ED with acute alcohol intoxication. Patient has an extensive history for similar presentations in ED. Denies any HI/SI. Requests a place to sleep. No physical complaints at this time. Time Seen by Provider: 09/18/17 21:20 Chief Complaint (Nursing): Psychiatric Evaluation History Per: Patient History/Exam Limitations: no limitations Onset/Duration Of Symptoms: Hrs Current Symptoms Are (Timing): Still Present Recent travel outside of the [place]: No Past Medical History Reviewed: Historical Data, Nursing Documentation, Vital Signs Vital Signs: Last Vital Signs Temp 98.5 F 09/18/17 21:16 Pulse 76 09/18/17 23:23 Resp 18 09/18/17 23:23 BP 121/71 09/18/17 23:23 Pulse Ox 98 09/19/17 07:08 - Medical History PMH: Anxiety, Asthma, Bipolar Disorder, Depression, Diabetes, Gastritis, Hepatitis, HTN, Paranoia, Personality Disorder, Chronic Kidney Disease, Schizophrenia, Seizures, Chronic Pain Denies: HIV, Sexually Transmitted Disease Surgical History: No Surg Hx - [facility] Procedures APPLICATION OF SPLINT (04/09/14) CL FX REDUC-TIBIA/FIBULA (02/26/13) GROUP PSYCHOTHERAPY (07/30/17) INDIVID PSYCHOTHERAP NEC (12/17/13) INDIVIDUAL PSYCHOTHERAPY, BEHAVIORAL (01/29/16) INDIVIDUAL PSYCHOTHERAPY, COGNITIVE-BEHAVIORAL (07/30/17) INDIVIDUAL PSYCHOTHERAPY, SUPPORTIVE (06/01/17) MEDICATION MANAGEMENT (07/22/16) OTHER GROUP THERAPY (11/05/13) PSYCHIA INTERV/EVAL NEC (06/28/14) Family History: States: No Known Family Hx - Social History Hx Tobacco Use: Yes Hx Alcohol Use: No Hx Substance Use: No - Immunization History Hx Tetanus Toxoid Vaccination: No Hx Influenza Vaccination: No Hx Pneumococcal Vaccination: No Review Of Systems Constitutional: Negative for: Fever, Chills Neurological: Positive for: Other (Et[place] intoxication) Psych: Negative for: Suicidal ideation Physical Exam - Physical Exam Appears: No Acute Distress Skin: Normal Color, Warm, Dry Head: Atraumatic, Normacephalic Oral Mucosa: Moist Chest: Symmetrical Cardiovascular: Rhythm Regular, No Murmur Respiratory: Normal Breath Sounds, No Rales, No Rhonchi, No Wheezing Gastrointestinal/Abdominal: Soft, No Tenderness Extremity: Normal ROM (x4) Gait: Unsteady ED Course And Treatment O2 Sat by Pulse Oximetry: 98 Medical Decision Making Medical Decision Making: pt in nad, always hears voices, well known to ed. requesting food. d/c home with outpt crc f/u Disposition Counseled Patient/Family Regarding: Diagnosis, Need For Followup - Disposition Referrals: [place] [facility] [Outside] Disposition: HOME/ ROUTINE Disposition Time: 23:12 Condition: GOOD Additional Instructions: Please follow up at [facility]. Call on Thursday for appointment. Return to ER for any worse symptoms. Instructions: Schizophrenia (DC) Forms: [facility] (Mohawk), General Discharge Instructions - Clinical Impression Clinical Impression: Schizophrenia - Scribe Statement The provider has reviewed the documentation as recorded by the Scribe Muna Winn All medical record entries made by the Scribe were at my direction and personally dictated by me. I have reviewed the chart and agree that the record accurately reflects my personal performance of the history, physical exam, medical decision making, and the department course for this patient. I have also personally directed, reviewed, and agree with the discharge instructions and disposition.
[2017-09-18 23:28] VITALS: BP 121/71; PULSE 76; RESP 18
[2017-09-19 02:46] VITALS: O2SAT 98
== END 2017-09-18 23:31 | disposition home or self-care (01) ==
LOC: C.ER 20:50
DX: F20.9 Schizophrenia, unspecified (principal); Z72.0 Tobacco use

== ENCOUNTER 2017-09-21 23:35 | Emergency (ER) | payer MEDICARE ==
[2017-09-21 23:35] VITALS: BMI 23.0
[2017-09-21 23:43] VITALS: BP 124/73; PULSE 84; RESP 14; TEMP 97.6; O2SAT 96
== END 2017-09-21 23:51 | disposition left against medical advice (07) ==
LOC: C.ER 23:35
DX: Z02.89 Encounter for other administrative examinations (principal); R44.0 Auditory hallucinations

== ENCOUNTER 2017-09-30 01:13 | Emergency (ER) | payer MEDICARE ==
[2017-09-30 01:13] VITALS: BMI 23.0
[2017-09-30 01:30] VITALS: TEMP 98.2; O2SAT 97
--- NOTE | 2017-09-30 02:18 | C.PDOC ---
History Of Present Illness Patient presents to the ER requesting a place to spend the night. Denies physical complaints at this time. Time Seen by Provider: 09/30/17 02:17 Chief Complaint (Nursing): Medical Clearance History Per: Patient History/Exam Limitations: no limitations Onset/Duration Of Symptoms: Hrs Current Symptoms Are (Timing): Still Present Severity: None Pain Scale Rating Of: 0 Recent travel outside of the [place]: No Past Medical History Reviewed: Historical Data, Nursing Documentation, Vital Signs Vital Signs: Last Vital Signs Temp 98.2 F 09/30/17 01:26 Pulse 75 09/30/17 01:26 Resp 14 09/30/17 01:26 BP 95/60 L 09/30/17 01:26 Pulse Ox 97 09/30/17 02:23 - Medical History PMH: Anxiety, Asthma, Bipolar Disorder, Depression, Diabetes, Gastritis, Hepatitis, HTN, Paranoia, Personality Disorder, Chronic Kidney Disease, Schizophrenia, Seizures, Chronic Pain Surgical History: No Surg Hx - [facility] Procedures APPLICATION OF SPLINT (04/09/14) CL FX REDUC-TIBIA/FIBULA (02/26/13) GROUP PSYCHOTHERAPY (07/30/17) INDIVID PSYCHOTHERAP NEC (12/17/13) INDIVIDUAL PSYCHOTHERAPY, BEHAVIORAL (01/29/16) INDIVIDUAL PSYCHOTHERAPY, COGNITIVE-BEHAVIORAL (07/30/17) INDIVIDUAL PSYCHOTHERAPY, SUPPORTIVE (06/01/17) MEDICATION MANAGEMENT (07/22/16) OTHER GROUP THERAPY (11/05/13) PSYCHIA INTERV/EVAL NEC (06/28/14) Family History: States: No Known Family Hx - Social History Hx Tobacco Use: Yes Hx Alcohol Use: No Hx Substance Use: No - Immunization History Hx Tetanus Toxoid Vaccination: No Hx Influenza Vaccination: No Hx Pneumococcal Vaccination: No Review Of Systems Constitutional: Negative for: Fever, Chills Cardiovascular: Negative for: Chest Pain, Palpitations Respiratory: Negative for: Cough, Shortness of Breath Gastrointestinal: Negative for: Nausea, Vomiting Physical Exam - Physical Exam Appears: Non-toxic Skin: Warm, Dry Head: Normacephalic Oral Mucosa: Moist Chest: Symmetrical, No Tenderness Cardiovascular: Rhythm Regular Respiratory: No Rales, No Rhonchi, No Wheezing Gastrointestinal/Abdominal: Soft, No Tenderness Neurological/Psych: Oriented x3 ED Course And Treatment O2 Sat by Pulse Oximetry: 97 (Room air) Pulse Ox Interpretation: Normal Reevaluation Time: 05:05 Reassessment Condition: Improved Disposition Counseled Patient/Family Regarding: Studies Performed, Diagnosis, Need For Followup - Disposition Referrals: [facility] at [facility] [Outside] Disposition: HOME/ ROUTINE Disposition Time: 02:17 Condition: FAIR Instructions: Schizophrenia (DC) Forms: [employer] (Maltese) - Clinical Impression Clinical Impression: Schizophrenia - Scribe Statement The provider has reviewed the documentation as recorded by the Scribalexis Gottlieb All medical record entries made by the Scribe were at my direction and personally dictated by me. I have reviewed the chart and agree that the record accurately reflects my personal performance of the history, physical exam, medical decision making, and the department course for this patient. I have also personally directed, reviewed, and agree with the discharge instructions and disposition.
[2017-09-30 05:11] VITALS: BP 129/78; PULSE 81; RESP 20
== END 2017-09-30 05:12 | disposition home or self-care (01) ==
LOC: C.ER 01:13
DX: F20.9 Schizophrenia, unspecified (principal)

== ENCOUNTER 2017-10-02 23:43 | Emergency (ER) | payer MEDICARE ==
[2017-10-02 23:43] VITALS: BMI 23.0
[2017-10-02 23:56] VITALS: BP 117/82; PULSE 80; RESP 14; TEMP 98.2; O2SAT 97
--- NOTE | 2017-10-03 00:16 | C.PDOC ---
History Of Present Illness 57 year old male presents to the ER requesting a place to spend the night. Patient has not physical complaints at this time. Chief Complaint (Nursing): Psychiatric Evaluation History Per: Patient History/Exam Limitations: no limitations Current Symptoms Are (Timing): Still Present Suicide/Self Injury Attempted (Context): None Modifying Factor(s): None Associated Symptoms: denies: Depression, Suicidal Thoughts Involuntary Hold By: None Recent travel outside of the [place]: No Past Medical History Reviewed: Historical Data, Nursing Documentation, Vital Signs Vital Signs: Last Vital Signs Temp 98.2 F 10/02/17 23:53 Pulse 80 10/02/17 23:53 Resp 14 10/02/17 23:53 BP 117/82 10/02/17 23:53 Pulse Ox 97 10/03/17 00:15 - Medical History PMH: Anxiety, Asthma, Bipolar Disorder, Depression, Diabetes, Gastritis, Hepatitis, HTN, Paranoia, Personality Disorder, Chronic Kidney Disease, Schizophrenia, Seizures, Chronic Pain Surgical History: - [facility] Procedures APPLICATION OF SPLINT (04/09/14) CL FX REDUC-TIBIA/FIBULA (02/26/13) GROUP PSYCHOTHERAPY (07/30/17) INDIVID PSYCHOTHERAP NEC (12/17/13) INDIVIDUAL PSYCHOTHERAPY, BEHAVIORAL (01/29/16) INDIVIDUAL PSYCHOTHERAPY, COGNITIVE-BEHAVIORAL (07/30/17) INDIVIDUAL PSYCHOTHERAPY, SUPPORTIVE (06/01/17) MEDICATION MANAGEMENT (07/22/16) OTHER GROUP THERAPY (11/05/13) PSYCHIA INTERV/EVAL NEC (06/28/14) Family History: States: Unknown Family Hx - Social History Hx Tobacco Use: Yes Hx Alcohol Use: No Hx Substance Use: No - Immunization History Hx Tetanus Toxoid Vaccination: No Hx Influenza Vaccination: No Hx Pneumococcal Vaccination: No Review Of Systems Constitutional: Negative for: Fever, Chills Cardiovascular: Negative for: Chest Pain, Palpitations Respiratory: Negative for: Cough, Shortness of Breath Gastrointestinal: Negative for: Nausea, Vomiting Genitourinary: Negative for: Dysuria, Hematuria Physical Exam - Physical Exam Appears: Non-toxic Skin: Normal Color, Warm, Dry Head: Atraumatic, Normacephalic Eye(s): bilateral: Normal Inspection Oral Mucosa: Moist Chest: Symmetrical, No Tenderness Cardiovascular: Rhythm Regular Respiratory: Normal Breath Sounds, No Rales, No Rhonchi, No Wheezing Extremity: Normal ROM (x4) Neurological/Psych: Oriented x3, Normal Speech Gait: Steady ED Course And Treatment O2 Sat by Pulse Oximetry: 97 (Room air) Pulse Ox Interpretation: Normal Progress Note: Patient is resting comfortably in the ER with no complaints, in no acute distress, he is able to ambulate without any difficulty, will discharge home. Disposition Counseled Patient/Family Regarding: Diagnosis, Need For Followup - Disposition Disposition: HOME/ ROUTINE Disposition Time: 00:15 Condition: STABLE Additional Instructions: Please follow up in clinic Forms: [employer] (Montenegrin) - Clinical Impression Clinical Impression: Schizoaffective disorder - PA / DRILL [employer]ESS SET UP OPERATOR RADIAL / Resident Statement MD/DO has reviewed & agrees with the documentation as recorded. - Scribe Statement The provider has reviewed the documentation as recorded by the Scribalexis Gottlieb All medical record entries made by the Madhavibalexis were at my direction and personally dictated by me. I have reviewed the chart and agree that the record accurately reflects my personal performance of the history, physical exam, medical decision making, and the department course for this patient. I have also personally directed, reviewed, and agree with the discharge instructions and disposition.
== END 2017-10-03 00:17 | disposition home or self-care (01) ==
LOC: C.ER 23:43
DX: F25.9 Schizoaffective disorder, unspecified (principal)

== ENCOUNTER 2017-10-05 22:28 | Emergency (ER) | payer MEDICARE ==
[2017-10-05 22:28] VITALS: BMI 23.0
[2017-10-05 23:05] VITALS: BP 110/77; PULSE 90; RESP 16; TEMP 98.4; O2SAT 98
== END 2017-10-05 23:06 | disposition left against medical advice (07) ==
LOC: C.ER 22:28
DX: Z02.89 Encounter for other administrative examinations (principal); Z00.8 Encounter for other general examination

== ENCOUNTER 2017-10-08 00:06 | Emergency (ER) | payer MEDICARE ==
[2017-10-08 00:06] VITALS: BMI 23.0
--- NOTE | 2017-10-08 00:28 | C.PDOC ---
History Of Present Illness Patient presents to the ER requesting a place to spend the night. Denies physical complaints at this time. Time Seen by Provider: 10/08/17 00:27 Chief Complaint (Nursing): Psychiatric Evaluation History Per: Patient History/Exam Limitations: no limitations Onset/Duration Of Symptoms: Hrs Current Symptoms Are (Timing): Still Present Suicide/Self Injury Attempted (Context): None Modifying Factor(s): None Severity: None Pain Scale Rating Of: 0 Associated Symptoms: denies: Depression, Suicidal Thoughts Involuntary Hold By: None Recent travel outside of the [place]: No Past Medical History Reviewed: Historical Data, Nursing Documentation, Vital Signs Vital Signs: Last Vital Signs Temp 98.6 F 10/08/17 00:15 Pulse 91 H 10/08/17 00:15 Resp 16 10/08/17 00:15 BP 111/78 10/08/17 00:15 Pulse Ox 97 10/08/17 00:28 - Medical History PMH: Anxiety, Asthma, Bipolar Disorder, Depression, Diabetes, Gastritis, Hepatitis, HTN, Paranoia, Personality Disorder, Chronic Kidney Disease, Schizophrenia, Seizures, Chronic Pain Surgical History: - [facility] Procedures APPLICATION OF SPLINT (04/09/14) CL FX REDUC-TIBIA/FIBULA (02/26/13) GROUP PSYCHOTHERAPY (07/30/17) INDIVID PSYCHOTHERAP NEC (12/17/13) INDIVIDUAL PSYCHOTHERAPY, BEHAVIORAL (01/29/16) INDIVIDUAL PSYCHOTHERAPY, COGNITIVE-BEHAVIORAL (07/30/17) INDIVIDUAL PSYCHOTHERAPY, SUPPORTIVE (06/01/17) MEDICATION MANAGEMENT (07/22/16) OTHER GROUP THERAPY (11/05/13) PSYCHIA INTERV/EVAL NEC (06/28/14) Family History: States: No Known Family Hx - Social History Hx Tobacco Use: Yes Hx Alcohol Use: No Hx Substance Use: No - Immunization History Hx Tetanus Toxoid Vaccination: No Hx Influenza Vaccination: Yes Hx Pneumococcal Vaccination: Yes Review Of Systems Constitutional: Negative for: Fever, Chills Cardiovascular: Negative for: Chest Pain, Palpitations Respiratory: Negative for: Cough, Shortness of Breath Gastrointestinal: Negative for: Nausea, Vomiting Physical Exam - Physical Exam Appears: Non-toxic Skin: Warm, Dry Head: Normacephalic Oral Mucosa: Moist Chest: Symmetrical, No Tenderness Cardiovascular: Rhythm Regular Respiratory: No Rales, No Rhonchi, No Wheezing Gastrointestinal/Abdominal: Soft, No Tenderness Neurological/Psych: Oriented x3 ED Course And Treatment O2 Sat by Pulse Oximetry: 97 (Room air) Pulse Ox Interpretation: Normal Disposition Counseled Patient/Family Regarding: Studies Performed, Diagnosis, Need For Followup - Disposition Referrals: [facility] [Outside] Disposition: HOME/ ROUTINE Disposition Time: 00:27 Condition: FAIR Instructions: Schizophrenia (DC) Forms: [employer] (Kyrgyz) - Clinical Impression Clinical Impression: Schizophrenia - Scribe Statement The provider has reviewed the documentation as recorded by the Scribe Howard Gottlieb All medical record entries made by the Scribe were at my direction and personally dictated by me. I have reviewed the chart and agree that the record accurately reflects my personal performance of the history, physical exam, medical decision making, and the department course for this patient. I have also personally directed, reviewed, and agree with the discharge instructions and disposition.
[2017-10-08 01:13] VITALS: BP 130/82; PULSE 81; RESP 22; TEMP 98.2; O2SAT 98
== END 2017-10-08 03:57 | disposition home or self-care (01) ==
LOC: C.ER 00:06
DX: F20.9 Schizophrenia, unspecified (principal)

== ENCOUNTER → 2017-10-19 23:46 | Emergency (ER) | payer MEDICARE ==
[2017-10-19 23:47] VITALS: BMI 23.0
== END | disposition left against medical advice (07) ==
LOC: C.ER 23:46
DX: Z02.89 Encounter for other administrative examinations (principal)

== ENCOUNTER 2017-10-23 00:05 | Emergency (ER) | payer MEDICARE ==
[2017-10-23 00:05] VITALS: BMI 23.0
[2017-10-23 00:09] VITALS: O2SAT 97
--- NOTE | 2017-10-23 00:14 | C.PDOC ---
History Of Present Illness Patient presents to the ER requesting a place to spend the night. Denies physical complaints at this time. Time Seen by Provider: 10/23/17 00:13 Chief Complaint (Nursing): Psychiatric Evaluation History Per: Patient History/Exam Limitations: no limitations Onset/Duration Of Symptoms: Hrs Current Symptoms Are (Timing): Still Present Suicide/Self Injury Attempted (Context): None Associated Symptoms: denies: Depression, Suicidal Thoughts Involuntary Hold By: None Recent travel outside of the [place]: No Past Medical History Reviewed: Historical Data, Nursing Documentation, Vital Signs Vital Signs: Last Vital Signs Temp 97.4 F L 10/23/17 00:06 Pulse 87 10/23/17 00:06 Resp 16 10/23/17 00:06 BP 115/77 10/23/17 00:06 Pulse Ox 97 10/23/17 01:57 - Medical History PMH: Anxiety, Asthma, Bipolar Disorder, Depression, Diabetes, Gastritis, Hepatitis, HTN, Paranoia, Personality Disorder, Chronic Kidney Disease, Schizophrenia, Seizures, Chronic Pain Denies: HIV, Sexually Transmitted Disease Surgical History: - [facility] Procedures APPLICATION OF SPLINT (04/09/14) CL FX REDUC-TIBIA/FIBULA (02/26/13) GROUP PSYCHOTHERAPY (10/15/17) INDIVID PSYCHOTHERAP NEC (12/17/13) INDIVIDUAL PSYCHOTHERAPY, BEHAVIORAL (01/29/16) INDIVIDUAL PSYCHOTHERAPY, COGNITIVE-BEHAVIORAL (07/30/17) INDIVIDUAL PSYCHOTHERAPY, SUPPORTIVE (06/01/17) MEDICATION MANAGEMENT (07/22/16) OTHER GROUP THERAPY (11/05/13) PSYCHIA INTERV/EVAL NEC (06/28/14) Family History: States: No Known Family Hx - Social History Hx Tobacco Use: Yes Hx Alcohol Use: Yes Hx Substance Use: No - Immunization History Hx Tetanus Toxoid Vaccination: No Hx Influenza Vaccination: Yes Hx Pneumococcal Vaccination: Yes Review Of Systems Constitutional: Negative for: Fever, Chills Cardiovascular: Negative for: Chest Pain, Palpitations Respiratory: Negative for: Cough, Shortness of Breath Gastrointestinal: Negative for: Nausea, Vomiting Physical Exam - Physical Exam Appears: Non-toxic Skin: Warm, Dry Head: Normacephalic Oral Mucosa: Moist Chest: Symmetrical, No Tenderness Cardiovascular: Rhythm Regular Respiratory: No Rales, No Rhonchi, No Wheezing Gastrointestinal/Abdominal: Soft, No Tenderness Neurological/Psych: Oriented x3 ED Course And Treatment O2 Sat by Pulse Oximetry: 97 (room air) Pulse Ox Interpretation: Normal Reevaluation Time: 04:41 Reassessment Condition: Improved Disposition Counseled Patient/Family Regarding: Studies Performed, Diagnosis, Need For Followup - Disposition Referrals: [facility] [Outside] Disposition: HOME/ ROUTINE Disposition Time: 00:14 Condition: FAIR Instructions: Schizophrenia (DC) Forms: [employer] (Andorran) - Clinical Impression Clinical Impression: Schizophrenia - Scribe Statement The provider has reviewed the documentation as recorded by the Scribe Howard Gottlieb All medical record entries made by the Scribe were at my direction and personally dictated by me. I have reviewed the chart and agree that the record accurately reflects my personal performance of the history, physical exam, medical decision making, and the department course for this patient. I have also personally directed, reviewed, and agree with the discharge instructions and disposition.
[2017-10-23 04:52] VITALS: BP 111/76; PULSE 75; RESP 14; TEMP 97.8
== END 2017-10-23 05:19 | disposition home or self-care (01) ==
LOC: C.ER 00:05
DX: F20.9 Schizophrenia, unspecified (principal)

== ENCOUNTER 2017-10-24 16:44 | Emergency (ER) | payer MEDICARE ==
[2017-10-24 16:44] VITALS: BMI 23.0
[2017-10-24 17:00] VITALS: BP 122/85; PULSE 88; TEMP 98.3; O2SAT 97
--- NOTE | 2017-10-24 17:12 | C.PDOC ---
History Of Present Illness 57 year old male with PMHx of schizophrenia presents to the ED requesting psychiatric admission because he is hearing voices. Patient states the voices are telling him to kill himself. He is currently at baseline with no physical complaints. Time Seen by Provider: 10/24/17 17:04 Chief Complaint (Nursing): Psychiatric Evaluation History Per: Patient History/Exam Limitations: no limitations Onset/Duration Of Symptoms: Hrs Current Symptoms Are (Timing): Still Present Modifying Factor(s): None Past Medical History Reviewed: Historical Data, Nursing Documentation, Vital Signs Vital Signs: Last Vital Signs Temp 98.3 F 10/24/17 16:51 Pulse 88 10/24/17 16:51 Resp 16 10/24/17 16:51 BP 122/85 10/24/17 16:51 Pulse Ox 97 10/24/17 17:15 - Medical History PMH: Anxiety, Asthma, Bipolar Disorder, Depression, Diabetes, Gastritis, Hepatitis, HTN, Paranoia, Personality Disorder, Chronic Kidney Disease, Schizophrenia, Seizures, Chronic Pain Denies: HIV, Sexually Transmitted Disease Surgical History: Other Surgeries: Hx of surgeries - [facility] Procedures APPLICATION OF SPLINT (04/09/14) CL FX REDUC-TIBIA/FIBULA (02/26/13) GROUP PSYCHOTHERAPY (10/15/17) INDIVID PSYCHOTHERAP NEC (12/17/13) INDIVIDUAL PSYCHOTHERAPY, BEHAVIORAL (01/29/16) INDIVIDUAL PSYCHOTHERAPY, COGNITIVE-BEHAVIORAL (07/30/17) INDIVIDUAL PSYCHOTHERAPY, SUPPORTIVE (06/01/17) MEDICATION MANAGEMENT (07/22/16) OTHER GROUP THERAPY (11/05/13) PSYCHIA INTERV/EVAL NEC (06/28/14) Family History: States: No Known Family Hx - Social History Hx Tobacco Use: Yes Hx Alcohol Use: Yes Hx Substance Use: No - Immunization History Hx Tetanus Toxoid Vaccination: No Hx Influenza Vaccination: Yes Hx Pneumococcal Vaccination: Yes Review Of Systems Skin: Negative for: Bruising Psych: Positive for: Psychosis (chronic), Suicidal ideation Physical Exam - Physical Exam Appears: Non-toxic, No Acute Distress Skin: Normal Color, Warm, Dry Head: Atraumatic Eye(s): bilateral: Normal Inspection Nose: Normal Oral Mucosa: Moist Neck: Supple Chest: Symmetrical Cardiovascular: Rhythm Regular Respiratory: Normal Breath Sounds, No Rales, No Rhonchi, No Wheezing Neurological/Psych: Oriented x3 Gait: Steady ED Course And Treatment O2 Sat by Pulse Oximetry: 97 (RA) Pulse Ox Interpretation: Normal Progress Note: Patient was seen by Kasey from Crisis. After discussion with Dr Jaime it was determine that the patient is at baseline and does not require admission at this time. He agrees to have something to eat and then will go home to his sisters. he will follow up as an out patient. Reevaluation Time: 18:06 Reassessment Condition: Improved Medical Decision Making Medical Decision Makin Spoke with crisis. Crisis will evaluate patient. Disposition - Disposition Disposition: HOME/ ROUTINE Disposition Time: 18:07 Condition: STABLE Instructions: Schizophrenia - Clinical Impression Clinical Impression: Schizophrenia - Scribe Statement The provider has reviewed the documentation as recorded by the Scribe Barbara Senior All medical record entries made by the Scribe were at my direction and personally dictated by me. I have reviewed the chart and agree that the record accurately reflects my personal performance of the history, physical exam, medical decision making, and the department course for this patient. I have also personally directed, reviewed, and agree with the discharge instructions and disposition.
[2017-10-24 18:07] VITALS: RESP 20
== END 2017-10-24 18:01 | disposition home or self-care (01) ==
LOC: C.ER 16:44
DX: F20.9 Schizophrenia, unspecified (principal)

== ENCOUNTER 2017-10-25 18:05 | Emergency (ER) | payer MEDICARE ==
[2017-10-25 18:07] VITALS: BMI 23.0
--- NOTE | 2017-10-25 18:14 | C.PDOC ---
Time Seen by Provider: 10/25/17 18:11 Chief Complaint (Nursing): Abdominal Pain History Per: Patient History/Exam Limitations: no limitations Onset/Duration Of Symptoms: Hrs Current Symptoms Are (Timing): Still Present Past Medical History Vital Signs: Last Vital Signs Temp 99.1 F 10/25/17 18:10 Pulse 73 10/25/17 18:10 Resp 20 10/25/17 18:10 BP 125/85 10/25/17 18:10 Pulse Ox 97 10/25/17 18:10 - Medical History PMH: Anxiety, Asthma, Bipolar Disorder, Depression, Diabetes, Gastritis, Hepatitis, HTN, Paranoia, Personality Disorder, Chronic Kidney Disease, Schizophrenia, Seizures, Chronic Pain Denies: HIV, Sexually Transmitted Disease Surgical History: - [facility] Procedures APPLICATION OF SPLINT (04/09/14) CL FX REDUC-TIBIA/FIBULA (02/26/13) GROUP PSYCHOTHERAPY (10/15/17) INDIVID PSYCHOTHERAP NEC (12/17/13) INDIVIDUAL PSYCHOTHERAPY, BEHAVIORAL (01/29/16) INDIVIDUAL PSYCHOTHERAPY, COGNITIVE-BEHAVIORAL (07/30/17) INDIVIDUAL PSYCHOTHERAPY, SUPPORTIVE (06/01/17) MEDICATION MANAGEMENT (07/22/16) OTHER GROUP THERAPY (11/05/13) PSYCHIA INTERV/EVAL NEC (06/28/14) Family History: States: Unknown Family Hx - Social History Hx Tobacco Use: Yes Hx Alcohol Use: Yes Hx Substance Use: No - Immunization History Hx Tetanus Toxoid Vaccination: No Hx Influenza Vaccination: Yes Hx Pneumococcal Vaccination: Yes Medical Decision Making Medical Decision Making: ddx: accidentally fell from standing in public, close to hospital and BIBA no abrasions/contusions noted on knees/shins baseline psych issues, no sig change from many prior evals. ? malingering Disposition Doctor Will See Patient In The: Office Counseled Patient/Family Regarding: Studies Performed, Diagnosis - Disposition Referrals: [facility] [Outside] [facility] [Outside] [facility] [Outside] [facility] [Outside] Disposition: HOME/ ROUTINE Disposition Time: 18:13 Condition: GOOD Additional Instructions: follow-up in our outpatient Clinics as needed Instructions: Contusion (DC) Forms: General Discharge Instructions, [facility] (Ghanaian) - Clinical Impression Clinical Impression: Schizophrenia, Contusion of knee and lower leg
[2017-10-25 18:16] VITALS: BP 125/85; PULSE 73; RESP 20; TEMP 99.1; O2SAT 97
--- NOTE | 2017-10-25 19:15 | C.PDOC ---
History Of Present Illness 57 year old male is brought into the emergency department by ambulance status- post falling in public and hurting his knees and shins bilaterally. - HPI Time Seen by Provider: 10/25/17 18:11 Chief Complaint (Nursing): Abdominal Pain History Per: Patient History/Exam Limitations: no limitations Onset/Duration Of Symptoms: Hrs Location Of Injury: Right: Knee, Leg, Left: Knee, Leg Past Medical History Reviewed: Historical Data, Nursing Documentation, Vital Signs Vital Signs: Last Vital Signs Temp 99.1 F 10/25/17 18:10 Pulse 73 10/25/17 18:10 Resp 20 10/25/17 18:10 BP 125/85 10/25/17 18:10 Pulse Ox 97 10/25/17 19:19 - Medical History PMH: Anxiety, Asthma, Bipolar Disorder, Depression, Diabetes, Gastritis, Hepatitis, HTN, Paranoia, Personality Disorder, Chronic Kidney Disease, Schizophrenia, Seizures, Chronic Pain Denies: HIV, Sexually Transmitted Disease Surgical History: No Surg Hx - [facility] Procedures APPLICATION OF SPLINT (04/09/14) CL FX REDUC-TIBIA/FIBULA (02/26/13) GROUP PSYCHOTHERAPY (10/15/17) INDIVID PSYCHOTHERAP NEC (12/17/13) INDIVIDUAL PSYCHOTHERAPY, BEHAVIORAL (01/29/16) INDIVIDUAL PSYCHOTHERAPY, COGNITIVE-BEHAVIORAL (07/30/17) INDIVIDUAL PSYCHOTHERAPY, SUPPORTIVE (06/01/17) MEDICATION MANAGEMENT (07/22/16) OTHER GROUP THERAPY (11/05/13) PSYCHIA INTERV/EVAL NEC (06/28/14) Family History: States: No Known Family Hx - Social History Hx Tobacco Use: Yes Hx Alcohol Use: Yes Hx Substance Use: No - Immunization History Hx Tetanus Toxoid Vaccination: No Hx Influenza Vaccination: Yes Hx Pneumococcal Vaccination: Yes Review Of Systems Except As Marked, All Systems Reviewed And Found Negative. Musculoskeletal: Positive for: Leg Pain Physical Exam - Physical Exam Appears: Non-toxic, No Acute Distress, Unkempt, Other (foul-smelling, poor hygiene) Skin: Warm, Dry Head: Atraumatic, Normacephalic Eye(s): bilateral: Normal Inspection Nose: Normal Neck: Normal, Supple Chest: Symmetrical Cardiovascular: Rhythm Regular, No Murmur Respiratory: Normal Breath Sounds, No Rales, No Rhonchi, No Wheezing Gastrointestinal/Abdominal: Normal Exam, Soft, No Tenderness, No Guarding, No Rebound Extremity: Normal ROM, No Tenderness, No Other (contusion) Neurological/Psych: Oriented x3, Normal Speech, Normal Cognition ED Course And Treatment O2 Sat by Pulse Oximetry: 97 (RA) Pulse Ox Interpretation: Normal Disposition Doctor Will See Patient In The: Office Counseled Patient/Family Regarding: Studies Performed, Diagnosis - Disposition Referrals: [facility] [Outside] [facility] [Outside] [facility] [Outside] [facility] [Outside] Disposition: HOME/ ROUTINE Disposition Time: 19:00 Condition: GOOD Additional Instructions: follow-up in our outpatient Clinics as needed Instructions: Contusion (DC) Forms: General Discharge Instructions, [facility] (Vietnamese) - Clinical Impression Clinical Impression: Schizophrenia, Contusion of knee and lower leg - Scribe Statement The provider has reviewed the documentation as recorded by the Scribe (John Copeland) Provider Attestation: All medical record entries made by the Scribe were at my direction and personally dictated by me. I have reviewed the chart and agree that the record accurately reflects my personal performance of the history, physical exam, medical decision making, and the department course for this patient. I have also personally directed, reviewed, and agree with the discharge instructions and disposition.
== END 2017-10-25 18:27 | disposition home or self-care (01) ==
LOC: C.ER 18:05
DX: S80.01XA Contusion of right knee, initial encounter (principal); S80.11XA Contusion of right lower leg, initial encounter; W19.XXXA Unspecified fall, initial encounter; F20.9 Schizophrenia, unspecified

== ENCOUNTER 2017-10-27 21:31 | Emergency (ER) | payer MEDICARE ==
[2017-10-27 21:31] VITALS: BMI 23.0
--- NOTE | 2017-10-27 21:39 | C.PDOC ---
History Of Present Illness 57 y/o male presents to ED with no new complaints. Patient is a well known homeless psych patient. Unchanged from prior. Denies any physical complaints. Time Seen by Provider: 10/27/17 21:37 History Per: Patient History/Exam Limitations: no limitations Onset/Duration Of Symptoms: Hrs Current Symptoms Are (Timing): Still Present Suicide/Self Injury Attempted (Context): None Modifying Factor(s): None Associated Symptoms: denies: Suicidal Thoughts Involuntary Hold By: None Recent travel outside of the [place]: No Past Medical History Reviewed: Historical Data, Nursing Documentation, Vital Signs Vital Signs: Last Vital Signs Temp 98.8 F 10/27/17 21:48 Pulse 93 H 10/27/17 21:48 Resp 20 10/27/17 21:48 BP 115/75 10/27/17 21:48 Pulse Ox 94 L 10/27/17 21:48 - Medical History PMH: Anxiety, Asthma, Bipolar Disorder, Depression, Diabetes, Gastritis, Hepatitis, HTN, Paranoia, Personality Disorder, Chronic Kidney Disease, Schizophrenia, Seizures, Chronic Pain Denies: HIV, Sexually Transmitted Disease Surgical History: - [facility] Procedures APPLICATION OF SPLINT (04/09/14) CL FX REDUC-TIBIA/FIBULA (02/26/13) GROUP PSYCHOTHERAPY (10/15/17) INDIVID PSYCHOTHERAP NEC (12/17/13) INDIVIDUAL PSYCHOTHERAPY, BEHAVIORAL (01/29/16) INDIVIDUAL PSYCHOTHERAPY, COGNITIVE-BEHAVIORAL (07/30/17) INDIVIDUAL PSYCHOTHERAPY, SUPPORTIVE (06/01/17) MEDICATION MANAGEMENT (07/22/16) OTHER GROUP THERAPY (11/05/13) PSYCHIA INTERV/EVAL NEC (06/28/14) Family History: States: Unknown Family Hx - Social History Hx Tobacco Use: Yes Hx Alcohol Use: Yes Hx Substance Use: No - Immunization History Hx Tetanus Toxoid Vaccination: No Hx Influenza Vaccination: Yes Hx Pneumococcal Vaccination: Yes Review Of Systems Constitutional: Negative for: Fever, Chills Gastrointestinal: Negative for: Nausea, Vomiting, Abdominal Pain, Diarrhea Skin: Negative for: Rash Neurological: Negative for: Weakness, Numbness Psych: Negative for: Suicidal ideation Physical Exam - Physical Exam Appears: Well, Non-toxic, No Acute Distress Skin: Normal Color, Warm, Dry Head: Atraumatic, Normacephalic Eye(s): bilateral: Normal Inspection, PERRL, EOMI Oral Mucosa: Moist Neck: Supple Chest: Symmetrical, No Tenderness Cardiovascular: Rhythm Regular, No Murmur Respiratory: Normal Breath Sounds, No Decreased Breath Sounds, No Rales, No Rhonchi, No Wheezing Gastrointestinal/Abdominal: Soft, No Tenderness Extremity: Normal ROM, No Deformity Extremity: Bilateral: Atraumatic, Normal Color And Temperature, Normal ROM Neurological/Psych: Oriented x3, Normal Speech Gait: Steady Medical Decision Making Medical Decision Making: no new complaints baseline exam malingering Disposition Doctor Will See Patient In The: Office Counseled Patient/Family Regarding: Studies Performed, Diagnosis - Disposition Referrals: [employer] [facility] [Outside] [place] [facility] [Outside] [facility] [Outside] [place] [employer] [Outside] Disposition: HOME/ ROUTINE Disposition Time: 21:38 Condition: GOOD Additional Instructions: seek nightly skilled nursing placement seek outpatient psych services. Instructions: Schizophrenia Forms: [facility] (Salvadorean) - Clinical Impression Clinical Impression: Schizophrenia, Malingering - Scribe Statement The provider has reviewed the documentation as recorded by the Scribalexis Hernández All medical record entries made by the Scribe were at my direction and personally dictated by me. I have reviewed the chart and agree that the record accurately reflects my personal performance of the history, physical exam, medical decision making, and the department course for this patient. I have also personally directed, reviewed, and agree with the discharge instructions and disposition.
[2017-10-27 21:53] VITALS: BP 115/75; PULSE 93; RESP 20; TEMP 98.8; O2SAT 94
== END 2017-10-27 21:55 | disposition home or self-care (01) ==
LOC: C.ER 21:31
DX: F20.9 Schizophrenia, unspecified (principal); Z76.5 Malingerer [conscious simulation]

== ENCOUNTER 2017-11-01 19:11 | Emergency (ER) | payer MEDICARE ==
[2017-11-01 19:12] VITALS: BMI 23.0
[2017-11-01 19:26] VITALS: BP 120/71; RESP 16; TEMP 98.7
[2017-11-01 20:08] LABS: BASO # 0.1 K/uL (0.0-0.2); EOS # 0.2 K/uL (0.0-0.7); EOS % 2.6 % (0.0-4.0); HEMOGLOBIN 13.2 g/dL (12.0-18.0); LYMPH # 1.8 K/uL (1.0-4.3); LYMPH % 24.7 % (20.0-40.0); MEAN CELL VOLUME 91.4 fL (80.0-94.0); MEAN CORPUSCULAR HEMOGLOBIN 30.9 pg (27.0-31.0); MEAN CORPUSCULAR HGB CONC 33.8 g/dL (33.0-37.0); MEAN PLATELET VOLUME 8.3 fL (7.2-11.7); MONO # 0.4 K/uL (0.0-0.8); MONO % 5.9 % (0.0-10.0); NEUT # 4.7 K/uL (1.8-7.0); NEUT % 65.8 % (50.0-75.0); RBC 4.29 Mil/uL (4.40-5.90); RED CELL DISTRIBUTION WIDTH 13.8 % (11.5-14.5); WHITE BLOOD COUNT 7.2 K/uL (4.8-10.8)
[2017-11-01 20:23] LABS: ALB/GLOB RATIO 1.7 (1.0-2.1); ALT/SGPT 23 U/L (21-72); AST/SGOT 15 U/L (17-59); BLOOD UREA NITROGEN 13 mg/dL (9-20); GFR AFRICAN-AMERICAN > 60; GFR NON-AFRICAN AMERICAN > 60
--- NOTE | 2017-11-01 20:23 | C.PDOC ---
History Of Present Illness 57yo male, comes to ER complaining of auditory hallucinations telling him to "kill myself." Patient is well known to ER staff and provider for multiple visits with similar presentation. At present, patient offers no medical complaints. Time Seen by Provider: 11/01/17 19:40 Chief Complaint (Nursing): Psychiatric Evaluation History Per: Patient Onset/Duration Of Symptoms: Unknown Current Symptoms Are (Timing): Still Present Past Medical History Reviewed: Historical Data, Nursing Documentation, Vital Signs Vital Signs: Last Vital Signs Temp 98.7 F 11/01/17 19:18 Pulse 80 11/01/17 22:30 Resp 16 11/01/17 19:18 BP 120/71 11/01/17 19:18 Pulse Ox 100 11/01/17 22:30 - Medical History PMH: Anxiety, Asthma, Bipolar Disorder, Depression, Diabetes, Gastritis, Hepatitis, HTN, Paranoia, Personality Disorder, Chronic Kidney Disease, Schizophrenia, Seizures, Chronic Pain Denies: HIV, Sexually Transmitted Disease Surgical History: No Surg Hx - [facility] Procedures APPLICATION OF SPLINT (04/09/14) CL FX REDUC-TIBIA/FIBULA (02/26/13) GROUP PSYCHOTHERAPY (10/15/17) INDIVID PSYCHOTHERAP NEC (12/17/13) INDIVIDUAL PSYCHOTHERAPY, BEHAVIORAL (01/29/16) INDIVIDUAL PSYCHOTHERAPY, COGNITIVE-BEHAVIORAL (07/30/17) INDIVIDUAL PSYCHOTHERAPY, SUPPORTIVE (06/01/17) MEDICATION MANAGEMENT (07/22/16) OTHER GROUP THERAPY (11/05/13) PSYCHIA INTERV/EVAL NEC (06/28/14) Family History: States: No Known Family Hx - Social History Hx Tobacco Use: Yes Hx Alcohol Use: Yes Hx Substance Use: No - Immunization History Hx Tetanus Toxoid Vaccination: Yes Hx Influenza Vaccination: Yes Hx Pneumococcal Vaccination: Yes Review Of Systems Except As Marked, All Systems Reviewed And Found Negative. Constitutional: Negative for: Fever, Chills Cardiovascular: Negative for: Chest Pain Respiratory: Negative for: Shortness of Breath Gastrointestinal: Negative for: Abdominal Pain Psych: Positive for: Other (auditory hallucination) Physical Exam - Physical Exam Appears: Non-toxic Skin: Normal Color Head: Normacephalic Eye(s): bilateral: Normal Inspection Neck: Supple Chest: Symmetrical Cardiovascular: Rhythm Regular Respiratory: Normal Breath Sounds Extremity: Normal ROM Neurological/Psych: Oriented x3 Gait: Steady ED Course And Treatment - Laboratory Results Result Diagrams: 11/01/17 20:05 11/01/17 20:05 O2 Sat by Pulse Oximetry: 98 (RA) Pulse Ox Interpretation: Normal Progress Note: UDS and urinalysis ordered Disposition - Disposition Disposition: AGAINST MEDICAL ADVICE Disposition Time: 23:40 Condition: STABLE Forms: [facility] (Armenian) - POA Present On Arrival: None - Clinical Impression Clinical Impression: Hallucination - Scribe Statement The provider has reviewed the documentation as recorded by the Leonard Azul Provider Attestation: All medical record entries made by the Leonard were at my direction and personally dictated by me. I have reviewed the chart and agree that the record accurately reflects my personal performance of the history, physical exam, medical decision making, and the department course for this patient. I have also personally directed, reviewed, and agree with the discharge instructions and disposition.
[2017-11-01 22:05] LABS: URINE BILIRUBIN NEGATIVE (NEGATIVE); URINE BLOOD NEGATIVE (NEGATIVE); URINE CLARITY Clear (Clear); URINE COLOR Yellow (YELLOW); URINE GLUCOSE (UA) NORMAL (Normal); URINE LEUKOCYTE ESTERASE NEG Leu/uL (Negative); URINE PROTEIN NEGATIVE (NEGATIVE)
[2017-11-01 22:53] LABS: BARBITURATES, UR NEGATIVE (NEGATIVE); BENZODIAZEPINES, UR NEGATIVE (NEGATIVE); OPIATES, UR NEGATIVE (NEGATIVE); PHENCYCLIDINE, UR NEGATIVE (NEGATIVE)
[2017-11-01 23:45] VITALS: PULSE 80
[2017-11-02 10:50] VITALS: O2SAT 98
== END 2017-11-01 23:43 | disposition left against medical advice (07) ==
LOC: C.ER 19:11
DX: R44.0 Auditory hallucinations (principal)

== ENCOUNTER 2017-11-03 00:16 | Emergency (ER) | payer MEDICARE ==
[2017-11-03 00:16] VITALS: BMI 23.0
[2017-11-03 00:21] VITALS: BP 109/75; PULSE 91; RESP 16; TEMP 97.6; O2SAT 97
--- NOTE | 2017-11-03 00:58 | C.PDOC ---
History Of Present Illness 57 year old male presents to the ER requesting a place to spend the night. Denies any physical complaints at this time. Time Seen by Provider: 11/03/17 00:40 Chief Complaint (Nursing): Psychiatric Evaluation History Per: Patient History/Exam Limitations: no limitations Onset/Duration Of Symptoms: Hrs Suicide/Self Injury Attempted (Context): None Modifying Factor(s): None Severity: None Pain Scale Rating Of: 0 Associated Symptoms: denies: Depression, Suicidal Thoughts Involuntary Hold By: None Recent travel outside of the [place]: No Past Medical History Reviewed: Historical Data, Nursing Documentation, Vital Signs Vital Signs: Last Vital Signs Temp 97.6 F 11/03/17 00:19 Pulse 91 H 11/03/17 00:19 Resp 16 11/03/17 00:19 BP 109/75 11/03/17 00:19 Pulse Ox 97 11/03/17 00:58 - Medical History PMH: Anxiety, Asthma, Bipolar Disorder, Depression, Diabetes, Gastritis, Hepatitis, HTN, Paranoia, Personality Disorder, Chronic Kidney Disease, Schizophrenia, Seizures, Chronic Pain Denies: HIV, Sexually Transmitted Disease Surgical History: - [facility] Procedures APPLICATION OF SPLINT (04/09/14) CL FX REDUC-TIBIA/FIBULA (02/26/13) GROUP PSYCHOTHERAPY (10/15/17) INDIVID PSYCHOTHERAP NEC (12/17/13) INDIVIDUAL PSYCHOTHERAPY, BEHAVIORAL (01/29/16) INDIVIDUAL PSYCHOTHERAPY, COGNITIVE-BEHAVIORAL (07/30/17) INDIVIDUAL PSYCHOTHERAPY, SUPPORTIVE (06/01/17) MEDICATION MANAGEMENT (07/22/16) OTHER GROUP THERAPY (11/05/13) PSYCHIA INTERV/EVAL NEC (06/28/14) Family History: States: No Known Family Hx - Social History Hx Tobacco Use: Yes Hx Alcohol Use: Yes Hx Substance Use: No - Immunization History Hx Tetanus Toxoid Vaccination: No Hx Influenza Vaccination: Yes Hx Pneumococcal Vaccination: Yes Review Of Systems Constitutional: Negative for: Fever, Chills Cardiovascular: Negative for: Chest Pain, Palpitations Respiratory: Negative for: Cough, Shortness of Breath Gastrointestinal: Negative for: Nausea, Vomiting Physical Exam - Physical Exam Appears: Non-toxic Skin: Warm, Dry Head: Normacephalic Oral Mucosa: Moist Chest: Symmetrical, No Tenderness Cardiovascular: Rhythm Regular Respiratory: No Rales, No Rhonchi, No Wheezing Gastrointestinal/Abdominal: Soft, No Tenderness Neurological/Psych: Oriented x3 ED Course And Treatment O2 Sat by Pulse Oximetry: 97 Disposition Counseled Patient/Family Regarding: Studies Performed, Diagnosis, Need For Followup - Disposition Referrals: [facility] [Outside] Disposition: HOME/ ROUTINE Disposition Time: 01:00 Condition: FAIR Instructions: Schizophrenia (DC) Forms: [facility] (Georgian) - Clinical Impression Clinical Impression: Schizophrenia - Scribe Statement The provider has reviewed the documentation as recorded by the Scribe Howard Gottlieb All medical record entries made by the Scribe were at my direction and personally dictated by me. I have reviewed the chart and agree that the record accurately reflects my personal performance of the history, physical exam, medical decision making, and the department course for this patient. I have also personally directed, reviewed, and agree with the discharge instructions and disposition.
== END 2017-11-03 03:54 | disposition home or self-care (01) ==
LOC: C.ER 00:16
DX: F20.9 Schizophrenia, unspecified (principal)

== ENCOUNTER 2017-11-03 20:51 | Emergency (ER) | payer MEDICARE ==
[2017-11-03 20:51] VITALS: BMI 23.0
[2017-11-03 21:09] VITALS: BP 110/74; PULSE 98; RESP 18; TEMP 98.4; O2SAT 98
--- NOTE | 2017-11-03 21:31 | C.PDOC ---
Time Seen by Provider: 11/03/17 21:12 Chief Complaint (Nursing): Medical Clearance Past Medical History Vital Signs: Last Vital Signs Temp 98.4 F 11/03/17 21:07 Pulse 98 H 11/03/17 21:07 Resp 18 11/03/17 21:07 BP 110/74 11/03/17 21:07 Pulse Ox 98 11/03/17 21:31 - Medical History PMH: Anxiety, Asthma, Bipolar Disorder, Depression, Diabetes, Gastritis, Hepatitis, HTN, Paranoia, Personality Disorder, Chronic Kidney Disease, Schizophrenia, Seizures, Chronic Pain Denies: HIV, Sexually Transmitted Disease Surgical History: - [employer] [facility] Procedures APPLICATION OF SPLINT (04/09/14) CL FX REDUC-TIBIA/FIBULA (02/26/13) GROUP PSYCHOTHERAPY (10/15/17) INDIVID PSYCHOTHERAP NEC (12/17/13) INDIVIDUAL PSYCHOTHERAPY, BEHAVIORAL (01/29/16) INDIVIDUAL PSYCHOTHERAPY, COGNITIVE-BEHAVIORAL (07/30/17) INDIVIDUAL PSYCHOTHERAPY, SUPPORTIVE (06/01/17) MEDICATION MANAGEMENT (07/22/16) OTHER GROUP THERAPY (11/05/13) PSYCHIA INTERV/EVAL NEC (06/28/14) - Social History Hx Tobacco Use: Yes Hx Alcohol Use: Yes Hx Substance Use: No - Immunization History Hx Tetanus Toxoid Vaccination: No Hx Influenza Vaccination: Yes Hx Pneumococcal Vaccination: Yes ED Course And Treatment O2 Sat by Pulse Oximetry: 98 Disposition - Disposition Referrals: Non [facility] Provider, [Primary Care Provider] - Forms: [employer] (Kinyarwanda)
--- NOTE | 2017-11-03 21:31 | C.PDOC ---
History Of Present Illness 57yo male, well known to ED staff for frequent ED visits, presents to ER today requesting to sleep. Denies suicidal plan, recent attempt, alcohol or drug abuse. Time Seen by Provider: 11/03/17 21:12 Chief Complaint (Nursing): Medical Clearance History Per: Patient History/Exam Limitations: no limitations Past Medical History Reviewed: Historical Data, Nursing Documentation, Vital Signs Vital Signs: Last Vital Signs Temp 98.4 F 11/03/17 21:07 Pulse 98 H 11/03/17 21:07 Resp 18 11/03/17 21:07 BP 110/74 11/03/17 21:07 Pulse Ox 98 11/03/17 21:42 - Medical History PMH: Anxiety, Asthma, Bipolar Disorder, Depression, Diabetes, Gastritis, Hepatitis, HTN, Paranoia, Personality Disorder, Chronic Kidney Disease, Schizophrenia, Seizures, Chronic Pain Denies: HIV, Sexually Transmitted Disease Surgical History: No Surg Hx - [facility] Procedures APPLICATION OF SPLINT (04/09/14) CL FX REDUC-TIBIA/FIBULA (02/26/13) GROUP PSYCHOTHERAPY (10/15/17) INDIVID PSYCHOTHERAP NEC (12/17/13) INDIVIDUAL PSYCHOTHERAPY, BEHAVIORAL (01/29/16) INDIVIDUAL PSYCHOTHERAPY, COGNITIVE-BEHAVIORAL (07/30/17) INDIVIDUAL PSYCHOTHERAPY, SUPPORTIVE (06/01/17) MEDICATION MANAGEMENT (07/22/16) OTHER GROUP THERAPY (11/05/13) PSYCHIA INTERV/EVAL NEC (06/28/14) Family History: States: No Known Family Hx - Social History Hx Tobacco Use: Yes Hx Alcohol Use: Yes Hx Substance Use: No - Immunization History Hx Tetanus Toxoid Vaccination: No Hx Influenza Vaccination: Yes Hx Pneumococcal Vaccination: Yes Review Of Systems Constitutional: Negative for: Fever, Chills Cardiovascular: Negative for: Chest Pain Respiratory: Negative for: Shortness of Breath Gastrointestinal: Negative for: Abdominal Pain Psych: Negative for: Suicidal ideation Physical Exam - Physical Exam Appears: Non-toxic Skin: Normal Color Head: Normacephalic Eye(s): bilateral: Normal Inspection Neck: Supple Chest: Symmetrical Cardiovascular: Rhythm Regular Respiratory: Normal Breath Sounds Extremity: Normal ROM, No Deformity Neurological/Psych: Oriented x3 ED Course And Treatment O2 Sat by Pulse Oximetry: 98 (RA) Pulse Ox Interpretation: Normal Progress Note: Patient with well exam, stable for discharge home. Disposition - Disposition Referrals: Non [facility] Provider, [Primary Care Provider] - Disposition: HOME/ ROUTINE Disposition Time: 21:31 Condition: STABLE Additional Instructions: Please follow up in clinic Return to ER as needed Forms: General Discharge Instructions, [facility] ([place] Islander) - Clinical Impression Clinical Impression: Medical assessment - PA / DITCH DIGGER / Resident Statement MD/DO has reviewed & agrees with the documentation as recorded. - Scribe Statement The provider has reviewed the documentation as recorded by the Leonard Azul Provider Attestation: All medical record entries made by the Leonard were at my direction and personally dictated by me. I have reviewed the chart and agree that the record accurately reflects my personal performance of the history, physical exam, medical decision making, and the department course for this patient. I have also personally directed, reviewed, and agree with the discharge instructions and disposition.
== END 2017-11-03 21:36 | disposition home or self-care (01) ==
LOC: SUPCPDRO 20:51 → C.ER 20:51
DX: Z04.8 Encounter for examination and observation for other specified reasons (principal)

== ENCOUNTER 2017-11-04 21:59 | Emergency (ER) | payer MEDICARE ==
[2017-11-04 21:59] VITALS: BMI 23.0
[2017-11-04 23:23] LABS: BASO # 0.1 K/uL (0.0-0.2); BASO % 1.1 % (0.0-2.0); EOS # 0.2 K/uL (0.0-0.7); EOS % 2.6 % (0.0-4.0); HEMOGLOBIN 13.8 g/dL (12.0-18.0); LYMPH # 1.6 K/uL (1.0-4.3); LYMPH % 23.5 % (20.0-40.0); MEAN CELL VOLUME 90.2 fL (80.0-94.0); MEAN CORPUSCULAR HGB CONC 34.3 g/dL (33.0-37.0); MEAN PLATELET VOLUME 8.2 fL (7.2-11.7); MONO # 0.4 K/uL (0.0-0.8); MONO % 5.7 % (0.0-10.0); NEUT # 4.7 K/uL (1.8-7.0); NEUT % 67.1 % (50.0-75.0); NRBC % 0.1 % (0.0-2.0); RBC 4.45 Mil/uL (4.40-5.90); RED CELL DISTRIBUTION WIDTH 13.6 % (11.5-14.5)
--- NOTE | 2017-11-04 23:25 | C.PDOC ---
History Of Present Illness 57 y/o male, well known to ER, presents to ED for complaints of hearing voices. Patient reports he is compliant with his medications. Patient also states the voices were telling him to "hurt himself last night but not right now." Patient had many prior visits with similar complaints. Patient currently denies SI, HI, or any other physical complaints. Time Seen by Provider: 11/04/17 22:40 Chief Complaint (Nursing): Psychiatric Evaluation History Per: Patient History/Exam Limitations: no limitations Onset/Duration Of Symptoms: Hrs Current Symptoms Are (Timing): Still Present Suicide/Self Injury Attempted (Context): None Modifying Factor(s): None Associated Symptoms: denies: Suicidal Thoughts, Suicidal Plan Involuntary Hold By: None Recent travel outside of the [place]: No Past Medical History Reviewed: Historical Data, Nursing Documentation, Vital Signs Vital Signs: Last Vital Signs Temp 97.7 F 11/05/17 01:39 Pulse 66 11/05/17 01:39 Resp 16 11/05/17 03:10 BP 106/70 11/05/17 01:39 Pulse Ox 98 11/05/17 03:08 - Medical History PMH: Anxiety, Asthma, Bipolar Disorder, Depression, Diabetes, Gastritis, Hepatitis, HTN, Paranoia, Personality Disorder, Chronic Kidney Disease, Schizophrenia, Seizures, Chronic Pain Surgical History: - [facility] Procedures APPLICATION OF SPLINT (04/09/14) CL FX REDUC-TIBIA/FIBULA (02/26/13) GROUP PSYCHOTHERAPY (10/15/17) INDIVID PSYCHOTHERAP NEC (12/17/13) INDIVIDUAL PSYCHOTHERAPY, BEHAVIORAL (01/29/16) INDIVIDUAL PSYCHOTHERAPY, COGNITIVE-BEHAVIORAL (07/30/17) INDIVIDUAL PSYCHOTHERAPY, SUPPORTIVE (06/01/17) MEDICATION MANAGEMENT (07/22/16) OTHER GROUP THERAPY (11/05/13) PSYCHIA INTERV/EVAL NEC (06/28/14) Family History: States: Unknown Family Hx - Social History Hx Tobacco Use: Yes Hx Alcohol Use: No Hx Substance Use: No - Immunization History Hx Tetanus Toxoid Vaccination: No Hx Influenza Vaccination: Yes Hx Pneumococcal Vaccination: Yes Review Of Systems Constitutional: Negative for: Fever, Chills Gastrointestinal: Negative for: Nausea, Vomiting, Abdominal Pain, Diarrhea Skin: Negative for: Rash Neurological: Negative for: Weakness, Numbness Psych: Positive for: Other (Hearing voices ). Negative for: Suicidal ideation Physical Exam - Physical Exam Appears: Well, Non-toxic, No Acute Distress, Other (No injuries or truama ) Skin: Normal Color, Warm, Dry Head: Atraumatic, Normacephalic Eye(s): bilateral: Normal Inspection, PERRL, EOMI Oral Mucosa: Moist Neck: Supple Chest: Symmetrical, No Tenderness Cardiovascular: Rhythm Regular, No Murmur Respiratory: Normal Breath Sounds, No Decreased Breath Sounds, No Rales, No Rhonchi, No Wheezing Gastrointestinal/Abdominal: Normal Exam, Soft, No Tenderness, No Distention Back: No CVA Tenderness Extremity: Normal ROM, No Deformity, No Swelling Extremity: Bilateral: Atraumatic, Normal Color And Temperature, Normal ROM Pulses: Left Radial: Normal, Right Radial: Normal Neurological/Psych: Oriented x3, Normal Speech (Speaking in full sentences ), Other (No focal deficits ) Gait: Steady ED Course And Treatment - Laboratory Results Result Diagrams: 11/04/17 23:20 11/04/17 23:20 O2 Sat by Pulse Oximetry: 98 (RA) Pulse Ox Interpretation: Normal Medical Decision Making Medical Decision Making: Crisis Notified. Patient is medically cleared. 0245 pt has been evaulated by crisis team. pt had cigarette in bathroom in fast track, secutity notifed. pt eloped from ed. crisis team notified. Disposition - Disposition Disposition: ELOPEMENT - ER ONLY Disposition Time: 02:45 Condition: STABLE Forms: [facility] (Georgian) - Clinical Impression Clinical Impression: Homeless, Schizoaffective disorder - PA / ANESTHESIA RESIDENT / Resident Statement MD/DO has reviewed & agrees with the documentation as recorded. - Scribe Statement The provider has reviewed the documentation as recorded by the Scribalexis Hernández All medical record entries made by the Madhavibalexis were at my direction and personally dictated by me. I have reviewed the chart and agree that the record accurately reflects my personal performance of the history, physical exam, medical decision making, and the department course for this patient. I have also personally directed, reviewed, and agree with the discharge instructions and disposition.
[2017-11-04 23:55] LABS: ALB/GLOB RATIO 1.8 (1.0-2.1); ALBUMIN 3.9 g/dL (3.5-5.0); ALT/SGPT 23 U/L (21-72); AST/SGOT 13 U/L (17-59); BLOOD UREA NITROGEN 10 mg/dL (9-20); CALCIUM 8.9 mg/dl (8.6-10.4); GFR AFRICAN-AMERICAN > 60; GFR NON-AFRICAN AMERICAN > 60
[2017-11-04 23:58] LABS: SQUAMOUS EPITHIAL < 1 /hpf (0-5); URINE BILIRUBIN NEGATIVE (NEGATIVE); URINE BLOOD NEGATIVE (NEGATIVE); URINE CLARITY Clear (Clear); URINE COLOR Yellow (YELLOW); URINE GLUCOSE (UA) NORMAL (Normal); URINE LEUKOCYTE ESTERASE NEG Leu/uL (Negative); URINE PROTEIN NEGATIVE (NEGATIVE); URINE UROBILINOGEN NORMAL mg/dL (0.2-1.0)
[2017-11-05 00:21] LABS: BARBITURATES, UR NEGATIVE (NEGATIVE); BENZODIAZEPINES, UR NEGATIVE (NEGATIVE); OPIATES, UR NEGATIVE (NEGATIVE); PHENCYCLIDINE, UR NEGATIVE (NEGATIVE)
[2017-11-05 01:41] VITALS: BP 106/70; PULSE 66; TEMP 97.7
[2017-11-05 03:07] VITALS: O2SAT 98
[2017-11-05 03:13] VITALS: RESP 16
== END 2017-11-05 03:10 | disposition left against medical advice (07) ==
LOC: C.ER 21:59
DX: F25.9 Schizoaffective disorder, unspecified (principal); Z59.0 Homelessness

== ENCOUNTER 2017-11-06 16:12 | Emergency (ER) | payer MEDICARE ==
[2017-11-06 16:12] VITALS: BMI 23.0
[2017-11-06 16:17] VITALS: BP 120/75; PULSE 91; RESP 16; TEMP 98.6; O2SAT 97
--- NOTE | 2017-11-06 16:48 | C.PDOC ---
History Of Present Illness 57 y/o male, homeless, well known to ED staff due to multiple visits daily due to same complaints, presents to ED requesting "psych admission". Pt states," I do take my medication but they do not help me anymore". Pt denies SI, HI, denies any active physical complaints at this time. Pt appears awake, alert, comfortable, not in any apparent distress. Denies recent trauma or injury. Time Seen by Provider: 11/06/17 16:21 Chief Complaint (Nursing): Psychiatric Evaluation History Per: Patient History/Exam Limitations: no limitations Onset/Duration Of Symptoms: Hrs Current Symptoms Are (Timing): Gone Suicide/Self Injury Attempted (Context): None Severity: None Pain Scale Rating Of: 0 Involuntary Hold By: None Recent travel outside of the [place]: No Additional History Per: Patient, Prior Records Past Medical History Reviewed: Historical Data, Nursing Documentation, Vital Signs Vital Signs: Last Vital Signs Temp 98.6 F 11/06/17 16:16 Pulse 91 H 11/06/17 16:16 Resp 16 11/06/17 16:16 BP 120/75 11/06/17 16:16 Pulse Ox 97 11/06/17 17:35 - Medical History PMH: Anxiety, Asthma, Bipolar Disorder, Depression, Diabetes, Gastritis, Hepatitis, HTN, Paranoia, Personality Disorder, Chronic Kidney Disease, Schizophrenia, Seizures, Chronic Pain Denies: HIV, Sexually Transmitted Disease Surgical History: - [facility] Procedures APPLICATION OF SPLINT (04/09/14) CL FX REDUC-TIBIA/FIBULA (02/26/13) GROUP PSYCHOTHERAPY (10/15/17) INDIVID PSYCHOTHERAP NEC (12/17/13) INDIVIDUAL PSYCHOTHERAPY, BEHAVIORAL (01/29/16) INDIVIDUAL PSYCHOTHERAPY, COGNITIVE-BEHAVIORAL (07/30/17) INDIVIDUAL PSYCHOTHERAPY, SUPPORTIVE (06/01/17) MEDICATION MANAGEMENT (07/22/16) OTHER GROUP THERAPY (11/05/13) PSYCHIA INTERV/EVAL NEC (06/28/14) Family History: States: Unknown Family Hx - Social History Hx Tobacco Use: Yes Hx Alcohol Use: No Hx Substance Use: No - Immunization History Hx Tetanus Toxoid Vaccination: No Hx Influenza Vaccination: Yes Hx Pneumococcal Vaccination: Yes Review Of Systems Except As Marked, All Systems Reviewed And Found Negative. Constitutional: Negative for: Fever, Chills Cardiovascular: Negative for: Chest Pain, Palpitations Respiratory: Negative for: Cough, Shortness of Breath Gastrointestinal: Negative for: Nausea, Vomiting, Abdominal Pain Neurological: Negative for: Headache, Dizziness Psych: Positive for: Other (hearing voices) Physical Exam - Physical Exam Appears: Well, Non-toxic, No Acute Distress Skin: Normal Color, Warm, Dry Head: Atraumatic, Normacephalic Eye(s): bilateral: PERRL Nose: No Flaring, No Discharge Oral Mucosa: Moist, No Drooling Tongue: Normal Appearing Lips: Normal Appearing Throat: No Drooling Neck: Normal ROM, Trachea Midline, No Midline Cervical Tenderness, No Paracervical Tenderness, No Step Off Deformity, Supple Cardiovascular: Rhythm Regular, No Murmur, No JVD Respiratory: No Decreased Breath Sounds, No Accessory Muscle Use, No Rales, No Rhonchi, No Stridor, No Wheezing Gastrointestinal/Abdominal: Soft, No Tenderness, No Distention, No Guarding, No Rebound Back: No Vertebral Tenderness, No Paraspinal Tenderness Extremity: Normal ROM, No Tenderness, No Pedal Edema, No Deformity, No Swelling Neurological/Psych: Oriented x3, Normal Speech, Normal Cognition, Normal Motor, Normal Sensation, Normal Reflexes ED Course And Treatment O2 Sat by Pulse Oximetry: 97 Pulse Ox Interpretation: Normal Progress Note: Pt was evaluated by sheet metal worker apprentice Mariam and reports " patient was offered admisison multiple times, last time was yesterday. Patient is not complaint". At present time, pt appears appropriate, AAO#3, dneies suicidal or homocidal ideation, as per PES worker, pt does not meet criteria for admission. Patient is requesting to stay in ER for few hours until it stops raining. At 16:55, Pt was noted eating sandwich, tolerate well. At 17:30, pt was not found at bedside, pt was called by name in all lena of ED without answer. Eloped from ED. 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 - Scribe Statement The provider has reviewed the documentation as recorded by the Scribe KP All medical record entries made by the Scribe were at my direction and personally dictated by me. I have reviewed the chart and agree that the record accurately reflects my personal performance of the history, physical exam, medical decision making, and the department course for this patient. I have also personally directed, reviewed, and agree with the discharge instructions and disposition.
== END 2017-11-06 18:00 | disposition left against medical advice (07) ==
LOC: C.ER 16:12
DX: F20.9 Schizophrenia, unspecified (principal)

== ENCOUNTER 2017-11-13 22:49 | Emergency (ER) | payer MEDICARE ==
[2017-11-13 22:49] VITALS: BMI 23.0
--- NOTE | 2017-11-14 00:06 | C.PDOC ---
History Of Present Illness 57 year old male presents to the emergency department seeking a place to sleep for the night. Patient has no complaints at this time. Time Seen by Provider: 11/14/17 00:05 Chief Complaint (Nursing): Psychiatric Evaluation History Per: Patient History/Exam Limitations: no limitations Onset/Duration Of Symptoms: Hrs Current Symptoms Are (Timing): Still Present Suicide/Self Injury Attempted (Context): None Modifying Factor(s): None Associated Symptoms: denies: Suicidal Thoughts Involuntary Hold By: None Past Medical History Reviewed: Historical Data, Nursing Documentation, Vital Signs Vital Signs: Last Vital Signs Temp 98.2 F 11/13/17 23:28 Pulse 92 H 11/13/17 23:28 Resp 20 11/13/17 23:28 BP 114/81 11/13/17 23:28 Pulse Ox 98 11/14/17 00:16 - Medical History PMH: Anxiety, Asthma, Bipolar Disorder, Depression, Diabetes, Gastritis, Hepatitis, HTN, Paranoia, Personality Disorder, Chronic Kidney Disease, Schizophrenia, Seizures, Chronic Pain Denies: HIV, Sexually Transmitted Disease Surgical History: - [facility] Procedures APPLICATION OF SPLINT (04/09/14) CL FX REDUC-TIBIA/FIBULA (02/26/13) GROUP PSYCHOTHERAPY (10/15/17) INDIVID PSYCHOTHERAP NEC (12/17/13) INDIVIDUAL PSYCHOTHERAPY, BEHAVIORAL (01/29/16) INDIVIDUAL PSYCHOTHERAPY, COGNITIVE-BEHAVIORAL (07/30/17) INDIVIDUAL PSYCHOTHERAPY, SUPPORTIVE (06/01/17) MEDICATION MANAGEMENT (07/22/16) OTHER GROUP THERAPY (11/05/13) PSYCHIA INTERV/EVAL NEC (06/28/14) Family History: States: Unknown Family Hx - Social History Hx Tobacco Use: Yes Hx Alcohol Use: No Hx Substance Use: No - Immunization History Hx Tetanus Toxoid Vaccination: No Hx Influenza Vaccination: Yes Hx Pneumococcal Vaccination: Yes Review Of Systems Constitutional: Negative for: Fever, Chills Psych: Negative for: Suicidal ideation Physical Exam - Physical Exam Appears: Non-toxic, No Acute Distress Skin: Warm, Dry Head: Normacephalic Eye(s): bilateral: Normal Inspection Neck: Trachea Midline, Supple Chest: Symmetrical, No Tenderness Cardiovascular: Rhythm Regular, No Murmur Respiratory: No Rales, No Rhonchi, No Wheezing Extremity: Bilateral: Normal Color And Temperature Pulses: Left Dorsalis Pedis: Normal, Right Dorsalis Pedis: Normal Neurological/Psych: Oriented x3 ED Course And Treatment O2 Sat by Pulse Oximetry: 98 (RA) Pulse Ox Interpretation: Normal Reevaluation Time: 04:46 Reassessment Condition: Improved Disposition Counseled Patient/Family Regarding: Studies Performed, Diagnosis, Need For Followup - Disposition Referrals: [facility] at [facility] [Outside] Disposition: HOME/ ROUTINE Disposition Time: 00:06 Condition: FAIR Instructions: Schizophrenia (DC) Forms: [employer] (Bengali) - Clinical Impression Clinical Impression: Schizophrenia - Scribe Statement The provider has reviewed the documentation as recorded by the Scribe (John Copeland) Provider Attestation: All medical record entries made by the Scribe were at my direction and personally dictated by me. I have reviewed the chart and agree that the record accurately reflects my personal performance of the history, physical exam, medical decision making, and the department course for this patient. I have also personally directed, reviewed, and agree with the discharge instructions and disposition.
[2017-11-14 06:00] VITALS: RESP 18
[2017-11-14 06:04] VITALS: TEMP 98
[2017-11-14 06:07] VITALS: BP 128/78; PULSE 84; O2SAT 95
== END 2017-11-14 05:04 | disposition home or self-care (01) ==
LOC: C.ER 22:49
DX: F20.9 Schizophrenia, unspecified (principal); I12.9 Hypertensive chronic kidney disease with stage 1 through stage 4 chronic kidney disease, or unspecified chronic kidney disease; N18.9 Chronic kidney disease, unspecified; Z72.0 Tobacco use

== ENCOUNTER 2017-11-15 02:21 | Emergency (ER) | payer MEDICARE ==
[2017-11-15 02:22] VITALS: BMI 23.0
[2017-11-15 02:35] VITALS: BP 111/76; PULSE 89; RESP 20; TEMP 98.4; O2SAT 97
--- NOTE | 2017-11-15 02:44 | C.PDOC ---
History Of Present Illness 57 year old male presents to the ED c/o right hand pain. Patient reports he punched a wall out of anger. Patient is c/o right hand pain mostly on his 4th and 5th metacarpals. Patient denies weakness, numbness, SI/HI, hallucinations, other injury, trauma. Time Seen by Provider: 11/15/17 02:43 Chief Complaint (Nursing): Medical Clearance History Per: Patient History/Exam Limitations: no limitations Onset/Duration Of Symptoms: Hrs Current Symptoms Are (Timing): Still Present Recent travel outside of the [place]: No Additional History Per: Patient Past Medical History Reviewed: Historical Data, Nursing Documentation, Vital Signs Vital Signs: Last Vital Signs Temp 98.4 F 11/15/17 02:33 Pulse 89 11/15/17 02:33 Resp 20 11/15/17 02:33 BP 111/76 11/15/17 02:33 Pulse Ox 97 11/15/17 03:11 - Medical History PMH: Anxiety, Asthma, Bipolar Disorder, Depression, Diabetes, Gastritis, Hepatitis, HTN, Paranoia, Personality Disorder, Chronic Kidney Disease, Schizophrenia, Seizures, Chronic Pain Denies: HIV, Sexually Transmitted Disease Surgical History: No Surg Hx - [facility] Procedures APPLICATION OF SPLINT (04/09/14) CL FX REDUC-TIBIA/FIBULA (02/26/13) GROUP PSYCHOTHERAPY (10/15/17) INDIVID PSYCHOTHERAP NEC (12/17/13) INDIVIDUAL PSYCHOTHERAPY, BEHAVIORAL (01/29/16) INDIVIDUAL PSYCHOTHERAPY, COGNITIVE-BEHAVIORAL (07/30/17) INDIVIDUAL PSYCHOTHERAPY, SUPPORTIVE (06/01/17) MEDICATION MANAGEMENT (07/22/16) OTHER GROUP THERAPY (11/05/13) PSYCHIA INTERV/EVAL NEC (06/28/14) Family History: States: Unknown Family Hx - Social History Hx Tobacco Use: Yes Hx Alcohol Use: No Hx Substance Use: No - Immunization History Hx Tetanus Toxoid Vaccination: No Hx Influenza Vaccination: Yes Hx Pneumococcal Vaccination: Yes Review Of Systems Constitutional: Negative for: Fever, Chills Cardiovascular: Negative for: Chest Pain Respiratory: Negative for: Shortness of Breath Gastrointestinal: Negative for: Nausea, Vomiting Musculoskeletal: Negative for: Hand Pain Skin: Negative for: Rash Neurological: Negative for: Weakness, Numbness Physical Exam - Physical Exam Appears: Non-toxic, No Acute Distress Skin: Warm, Dry Head: Normacephalic Eye(s): bilateral: Normal Inspection Neck: Supple Chest: Symmetrical Cardiovascular: Rhythm Regular Respiratory: No Rales, No Rhonchi, No Wheezing Gastrointestinal/Abdominal: Soft, No Tenderness, No Guarding, No Rebound Back: Normal Inspection Extremity: Normal ROM, Tenderness (right hand 4th and 5th metacarpal), Capillary Refill (< 2 seconds) Pulses: Left Radial: Normal, Right Radial: Normal Neurological/Psych: Oriented x3, Normal Speech Gait: Steady ED Course And Treatment O2 Sat by Pulse Oximetry: 97 (ON RA) Pulse Ox Interpretation: Normal - Other Rad hand X-Ray: Interpreted by Me, Viewed By Me Interpretation: no fx or dislocation Progress Note: Plan: - Right hand X-Ray. went to splint the pt, but patient had eloped Disposition Counseled Patient/Family Regarding: Studies Performed, Diagnosis, Need For Followup - Disposition Referrals: [facility] at [facility] [Outside] Disposition: ELOPEMENT - ER ONLY Disposition Time: 02:43 Condition: FAIR Instructions: Hand Pain (DC) Forms: [employer] [facility] (Ghanaian) - Clinical Impression Clinical Impression: Contusion of hand, right - Scribe Statement The provider has reviewed the documentation as recorded by the Scribe Jarod Jett All medical record entries made by the Scribe were at my direction and personally dictated by me. I have reviewed the chart and agree that the record accurately reflects my personal performance of the history, physical exam, medical decision making, and the department course for this patient. I have also personally directed, reviewed, and agree with the discharge instructions and disposition.
--- NOTE | 2017-11-15 15:33 | RAD ---
PROCEDURE: Right Hand Radiographs. HISTORY: trauma COMPARISON: None. FINDINGS: BONES: Normal. No fracture. JOINTS: Normal. No osteoarthritic changes. SOFT TISSUES: Normal. OTHER FINDINGS: None. IMPRESSION: No radiographic evidence of acute displaced fracture.
== END 2017-11-15 03:28 | disposition left against medical advice (07) ==
LOC: C.ER 02:21
DX: S60.221A Contusion of right hand, initial encounter (principal); W22.01XA Walked into wall, initial encounter; I12.9 Hypertensive chronic kidney disease with stage 1 through stage 4 chronic kidney disease, or unspecified chronic kidney disease; N18.9 Chronic kidney disease, unspecified; F20.9 Schizophrenia, unspecified; Z72.0 Tobacco use

== ENCOUNTER 2017-11-17 21:53 | Emergency (ER) | payer MEDICARE ==
[2017-11-17 21:53] VITALS: BMI 23.0
[2017-11-17 22:22] VITALS: O2SAT 97
--- NOTE | 2017-11-17 22:22 | C.PDOC ---
History Of Present Illness Patient presents to the ER requesting a place to spend the night. Denies physical complaints at this time. Time Seen by Provider: 11/17/17 22:21 Chief Complaint (Nursing): Medical Clearance History Per: Patient History/Exam Limitations: no limitations Onset/Duration Of Symptoms: Hrs Current Symptoms Are (Timing): Still Present Severity: None Pain Scale Rating Of: 0 Recent travel outside of the [place]: No Past Medical History Reviewed: Historical Data, Nursing Documentation, Vital Signs Vital Signs: Last Vital Signs Temp 97.9 F 11/18/17 02:04 Pulse 72 11/18/17 02:04 Resp 18 11/18/17 02:04 BP 100/70 11/18/17 02:04 Pulse Ox 97 11/18/17 02:04 - Medical History PMH: Anxiety, Asthma, Bipolar Disorder, Depression, Diabetes, Gastritis, Hepatitis, HTN, Paranoia, Personality Disorder, Chronic Kidney Disease, Schizophrenia, Seizures, Chronic Pain Denies: HIV, Sexually Transmitted Disease Surgical History: - [facility] Procedures APPLICATION OF SPLINT (04/09/14) CL FX REDUC-TIBIA/FIBULA (02/26/13) GROUP PSYCHOTHERAPY (10/15/17) INDIVID PSYCHOTHERAP NEC (12/17/13) INDIVIDUAL PSYCHOTHERAPY, BEHAVIORAL (01/29/16) INDIVIDUAL PSYCHOTHERAPY, COGNITIVE-BEHAVIORAL (07/30/17) INDIVIDUAL PSYCHOTHERAPY, SUPPORTIVE (06/01/17) MEDICATION MANAGEMENT (07/22/16) OTHER GROUP THERAPY (11/05/13) PSYCHIA INTERV/EVAL NEC (06/28/14) Family History: States: No Known Family Hx - Social History Hx Tobacco Use: Yes Hx Alcohol Use: No Hx Substance Use: No - Immunization History Hx Tetanus Toxoid Vaccination: No Hx Influenza Vaccination: Yes Hx Pneumococcal Vaccination: Yes Review Of Systems Constitutional: Negative for: Fever, Chills Cardiovascular: Negative for: Chest Pain, Palpitations Respiratory: Negative for: Cough, Shortness of Breath Gastrointestinal: Negative for: Nausea, Vomiting Physical Exam - Physical Exam Appears: Non-toxic Skin: Warm, Dry Head: Normacephalic Oral Mucosa: Moist Chest: Symmetrical, No Tenderness Cardiovascular: Rhythm Regular Respiratory: No Rales, No Rhonchi, No Wheezing Gastrointestinal/Abdominal: Soft, No Tenderness Neurological/Psych: Oriented x3 Disposition Counseled Patient/Family Regarding: Studies Performed, Diagnosis, Need For Followup - Disposition Referrals: [facility] at [facility] [Outside] Disposition: HOME/ ROUTINE Disposition Time: 22:21 Condition: FAIR Instructions: Schizophrenia (DC) Forms: [facility] (Papua [place]inean), General Discharge Instructions - Clinical Impression Clinical Impression: Homeless, Schizophrenia - Scribe Statement The provider has reviewed the documentation as recorded by the Scribe Howard Gottlieb All medical record entries made by the Scribe were at my direction and personally dictated by me. I have reviewed the chart and agree that the record accurately reflects my personal performance of the history, physical exam, medical decision making, and the department course for this patient. I have also personally directed, reviewed, and agree with the discharge instructions and disposition.
[2017-11-18 02:05] VITALS: BP 100/70; PULSE 72; RESP 18; TEMP 97.9
== END 2017-11-18 04:22 | disposition home or self-care (01) ==
LOC: C.ER 21:53
DX: F20.9 Schizophrenia, unspecified (principal); Z59.0 Homelessness; Z72.0 Tobacco use

== ENCOUNTER 2017-11-20 00:33 | Emergency (ER) | payer MEDICARE ==
[2017-11-20 00:33] VITALS: BMI 23.0
[2017-11-20 00:58] VITALS: RESP 20; O2SAT 97
--- NOTE | 2017-11-20 01:09 | C.PDOC ---
History Of Present Illness 57 year old male presents to the ED stating he needs a place to stay. Patient has multiple prior visits to the ED with the same presentation. Patient denies SI/HI, hallucinations, CP, SOB, trauma, fall, injury. Chief Complaint (Nursing): Medical Clearance History Per: Patient History/Exam Limitations: no limitations Onset/Duration Of Symptoms: Hrs Current Symptoms Are (Timing): Still Present Recent travel outside of the [place]: No Additional History Per: Patient Past Medical History Reviewed: Historical Data, Nursing Documentation, Vital Signs Vital Signs: Last Vital Signs Temp 98.7 F 11/20/17 05:16 Pulse 72 11/20/17 05:16 Resp 20 11/20/17 05:16 BP 115/67 11/20/17 05:16 Pulse Ox 97 11/20/17 05:16 - Medical History PMH: Anxiety, Asthma, Bipolar Disorder, Depression, Diabetes, Gastritis, Hepatitis, HTN, Paranoia, Personality Disorder, Chronic Kidney Disease, Schizophrenia, Seizures, Chronic Pain Denies: HIV, Sexually Transmitted Disease Surgical History: No Surg Hx - [facility] Procedures APPLICATION OF SPLINT (04/09/14) CL FX REDUC-TIBIA/FIBULA (02/26/13) GROUP PSYCHOTHERAPY (10/15/17) INDIVID PSYCHOTHERAP NEC (12/17/13) INDIVIDUAL PSYCHOTHERAPY, BEHAVIORAL (01/29/16) INDIVIDUAL PSYCHOTHERAPY, COGNITIVE-BEHAVIORAL (07/30/17) INDIVIDUAL PSYCHOTHERAPY, SUPPORTIVE (06/01/17) MEDICATION MANAGEMENT (07/22/16) OTHER GROUP THERAPY (11/05/13) PSYCHIA INTERV/EVAL NEC (06/28/14) Family History: States: Unknown Family Hx - Social History Hx Tobacco Use: Yes Hx Alcohol Use: No Hx Substance Use: No - Immunization History Hx Tetanus Toxoid Vaccination: No Hx Influenza Vaccination: Yes Hx Pneumococcal Vaccination: Yes Review Of Systems Constitutional: Negative for: Fever, Chills Cardiovascular: Negative for: Chest Pain Respiratory: Negative for: Cough, Shortness of Breath Gastrointestinal: Negative for: Nausea, Vomiting, Abdominal Pain Skin: Negative for: Rash Psych: Negative for: Depression, Suicidal ideation Physical Exam - Physical Exam Appears: Non-toxic, No Acute Distress Skin: Normal Color, Warm, Dry Head: Atraumatic, Normacephalic Eye(s): bilateral: Normal Inspection Neck: Normal ROM, Supple Chest: Symmetrical Cardiovascular: Rhythm Regular Respiratory: Normal Breath Sounds, No Rales, No Rhonchi, No Wheezing Gastrointestinal/Abdominal: Soft, No Tenderness, No Guarding, No Rebound Extremity: Normal ROM, No Tenderness, No Swelling Neurological/Psych: Oriented x3, Normal Speech Gait: Steady ED Course And Treatment O2 Sat by Pulse Oximetry: 97 (ON RA) Pulse Ox Interpretation: Normal Disposition - Disposition Referrals: [facility] at [facility] [Outside] Disposition: HOME/ ROUTINE Disposition Time: 05:23 Condition: STABLE Instructions: Schizoaffective Disorder Forms: [employer] (Croatian) - Clinical Impression Clinical Impression: Homeless single person, Schizoaffective disorder - Scribe Statement The provider has reviewed the documentation as recorded by the Scribe Jarod Jett All medical record entries made by the Scribe were at my direction and personally dictated by me. I have reviewed the chart and agree that the record accurately reflects my personal performance of the history, physical exam, medical decision making, and the department course for this patient. I have also personally directed, reviewed, and agree with the discharge instructions and disposition.
[2017-11-20 05:17] VITALS: BP 115/67; PULSE 72; TEMP 98.7
== END 2017-11-20 05:32 | disposition home or self-care (01) ==
LOC: C.ER 00:33
DX: F25.9 Schizoaffective disorder, unspecified (principal); Z59.0 Homelessness

== ENCOUNTER 2017-11-20 23:07 | Emergency (ER) | payer MEDICARE ==
[2017-11-20 23:08] VITALS: BMI 23.0
[2017-11-20 23:22] VITALS: BP 128/74; PULSE 78; RESP 20; TEMP 98; O2SAT 98
--- NOTE | 2017-11-20 23:44 | C.PDOC ---
History Of Present Illness 57 year old male presents to the ED stating he needs a place to sleep. Patient has multiple prior visits to the ED for the same presentation. Patient denies SI /HI, hallucinations, trauma, injury, fall. Time Seen by Provider: 11/20/17 23:28 Chief Complaint (Nursing): Medical Clearance History Per: Patient History/Exam Limitations: no limitations Onset/Duration Of Symptoms: Days Current Symptoms Are (Timing): Still Present Reports Recently: Seen In ED (11/20/17) Recent travel outside of the [place]: No Additional History Per: Patient Past Medical History Reviewed: Historical Data, Nursing Documentation, Vital Signs Vital Signs: Last Vital Signs Temp 98 F 11/20/17 23:19 Pulse 78 11/20/17 23:19 Resp 20 11/20/17 23:19 BP 128/74 11/20/17 23:19 Pulse Ox 98 11/21/17 02:31 - Medical History PMH: Anxiety, Asthma, Bipolar Disorder, Depression, Diabetes, Gastritis, Hepatitis, HTN, Paranoia, Personality Disorder, Chronic Kidney Disease, Schizophrenia, Seizures, Chronic Pain Denies: HIV, Sexually Transmitted Disease Surgical History: No Surg Hx - [facility] Procedures APPLICATION OF SPLINT (04/09/14) CL FX REDUC-TIBIA/FIBULA (02/26/13) GROUP PSYCHOTHERAPY (10/15/17) INDIVID PSYCHOTHERAP NEC (12/17/13) INDIVIDUAL PSYCHOTHERAPY, BEHAVIORAL (01/29/16) INDIVIDUAL PSYCHOTHERAPY, COGNITIVE-BEHAVIORAL (07/30/17) INDIVIDUAL PSYCHOTHERAPY, SUPPORTIVE (06/01/17) MEDICATION MANAGEMENT (07/22/16) OTHER GROUP THERAPY (11/05/13) PSYCHIA INTERV/EVAL NEC (06/28/14) Family History: States: Unknown Family Hx - Social History Hx Tobacco Use: Yes Hx Alcohol Use: No Hx Substance Use: No - Immunization History Hx Tetanus Toxoid Vaccination: No Hx Influenza Vaccination: Yes Hx Pneumococcal Vaccination: Yes Review Of Systems Constitutional: Negative for: Fever Cardiovascular: Negative for: Chest Pain, Palpitations Respiratory: Negative for: Cough, Shortness of Breath Gastrointestinal: Negative for: Nausea, Vomiting, Abdominal Pain Skin: Negative for: Rash Psych: Negative for: Depression, Suicidal ideation Physical Exam - Physical Exam Appears: Non-toxic, No Acute Distress Skin: Normal Color, Warm, Dry Head: Atraumatic, Normacephalic Eye(s): bilateral: Normal Inspection Neck: Normal ROM, Supple Chest: Symmetrical Cardiovascular: Rhythm Regular Respiratory: Normal Breath Sounds, No Wheezing Gastrointestinal/Abdominal: Soft, No Tenderness Extremity: Normal ROM Neurological/Psych: Oriented x3, Normal Speech Gait: Steady ED Course And Treatment O2 Sat by Pulse Oximetry: 98 (ON RA) Pulse Ox Interpretation: Normal Progress Note: Patient offers no complaints and is in no acute distress. Patient has multiple visits to sleep in ED. Pt was instructed to follow up with physician/clinic in 1-2 days for further evaluation. Disposition Counseled Patient/Family Regarding: Diagnosis, Need For Followup - Disposition Disposition: HOME/ ROUTINE Disposition Time: 23:43 Condition: GOOD Forms: General Discharge Instructions, [facility] (New Zealander) - Clinical Impression Clinical Impression: Encounter for limited medical examination - PA / OFFICE WORKER / Resident Statement MD/DO has reviewed & agrees with the documentation as recorded. - Scribe Statement The provider has reviewed the documentation as recorded by the Scribe Jarod Jett All medical record entries made by the Scribe were at my direction and personally dictated by me. I have reviewed the chart and agree that the record accurately reflects my personal performance of the history, physical exam, medical decision making, and the department course for this patient. I have also personally directed, reviewed, and agree with the discharge instructions and disposition.
== END 2017-11-20 23:52 | disposition home or self-care (01) ==
LOC: C.ER 23:07
DX: Z04.8 Encounter for examination and observation for other specified reasons (principal)

== ENCOUNTER → 2017-11-25 20:10 | Emergency (ER) | payer MEDICARE ==
[2017-11-25 20:10] VITALS: BMI 23.0
== END | disposition left against medical advice (07) ==
LOC: C.ER 20:10
DX: Z02.89 Encounter for other administrative examinations (principal)

== ENCOUNTER 2017-11-26 16:09 | Emergency (ER) | payer MEDICARE ==
[2017-11-26 16:09] VITALS: BMI 23.0
[2017-11-26 16:29] VITALS: BP 131/71; PULSE 75; RESP 20; TEMP 98.7; O2SAT 97
--- NOTE | 2017-11-26 16:54 | C.PDOC ---
History Of Present Illness 57 year old male patient presents to the ER to sleep. Patient has hx of schizophrenia. Patient is well known and just recently came back from [place] ER. Time Seen by Provider: 11/26/17 16:46 Chief Complaint (Nursing): Psychiatric Evaluation History Per: Patient History/Exam Limitations: no limitations Current Symptoms Are (Timing): Still Present Past Medical History Reviewed: Historical Data, Nursing Documentation, Vital Signs Vital Signs: Last Vital Signs Temp 98.7 F 11/26/17 16:30 Pulse 75 11/26/17 16:30 Resp 20 11/26/17 16:30 BP 131/71 11/26/17 16:30 Pulse Ox 97 11/26/17 16:54 - Medical History PMH: Anxiety, Asthma, Bipolar Disorder, Depression, Diabetes, Gastritis, Hepatitis, HTN, Paranoia, Personality Disorder, Chronic Kidney Disease, Schizophrenia, Seizures, Chronic Pain Surgical History: - [facility] Procedures APPLICATION OF SPLINT (04/09/14) CL FX REDUC-TIBIA/FIBULA (02/26/13) GROUP PSYCHOTHERAPY (10/15/17) INDIVID PSYCHOTHERAP NEC (12/17/13) INDIVIDUAL PSYCHOTHERAPY, BEHAVIORAL (01/29/16) INDIVIDUAL PSYCHOTHERAPY, COGNITIVE-BEHAVIORAL (07/30/17) INDIVIDUAL PSYCHOTHERAPY, SUPPORTIVE (06/01/17) MEDICATION MANAGEMENT (07/22/16) OTHER GROUP THERAPY (11/05/13) PSYCHIA INTERV/EVAL NEC (06/28/14) Family History: States: Unknown Family Hx - Social History Hx Tobacco Use: Yes Hx Alcohol Use: No Hx Substance Use: No - Immunization History Hx Tetanus Toxoid Vaccination: No Hx Influenza Vaccination: Yes Hx Pneumococcal Vaccination: Yes Review Of Systems Except As Marked, All Systems Reviewed And Found Negative. Constitutional: Positive for: Other (wants to sleep ) Psych: Negative for: Suicidal ideation, Other (homicidal ideation) Physical Exam - Physical Exam Appears: Non-toxic, No Acute Distress, Other (disheveled; baseline) Skin: Normal Color, Warm, Dry Head: Normacephalic Eye(s): bilateral: Normal Inspection Chest: Symmetrical Cardiovascular: Rhythm Regular Respiratory: Normal Breath Sounds Extremity: Normal ROM (x4) Neurological/Psych: Oriented x3, Normal Speech Gait: Steady ED Course And Treatment O2 Sat by Pulse Oximetry: 97 (RA) Pulse Ox Interpretation: Normal Medical Decision Making Medical Decision Making: schizophrenic, no SI/HI d/c from [facility] ED 1 hr ago for same seen by Crisis Evaluators here, no acute issues from baseline "wants a place to sleep" Disposition Doctor Will See Patient In The: Office Counseled Patient/Family Regarding: Studies Performed, Diagnosis - Disposition Referrals: [facility] [Outside] [facility] [Outside] [facility] [Outside] [facility] [Outside] Disposition: HOME/ ROUTINE Disposition Time: 16:53 Condition: GOOD Instructions: Schizophrenia Forms: [employer] (Norwegian) - Clinical Impression Clinical Impression: Schizophrenia, Malingerer - Scribe Statement The provider has reviewed the documentation as recorded by the Scribe Ram Do Provider Attestation: All medical record entries made by the Scribe were at my direction and personally dictated by me. I have reviewed the chart and agree that the record accurately reflects my personal performance of the history, physical exam, medical decision making, and the department course for this patient. I have also personally directed, reviewed, and agree with the discharge instructions and disposition.
== END 2017-11-26 17:20 | disposition home or self-care (01) ==
LOC: C.ER 16:09
DX: F20.9 Schizophrenia, unspecified (principal); Z76.5 Malingerer [conscious simulation]

== ENCOUNTER 2017-11-28 20:59 | Emergency (ER) | payer MEDICARE ==
[2017-11-28 20:59] VITALS: BMI 23.0
--- NOTE | 2017-11-28 21:13 | C.PDOC ---
History Of Present Illness 57 year old male presents to the ED for evaluation of vague complaints. Patient is also requesting a place to sleep. This patient is familiar to this ED and has had man prior visits for the same. He denies suicidal/homicidal ideation. Time Seen by Provider: 11/28/17 21:11 History Per: Patient History/Exam Limitations: no limitations Onset/Duration Of Symptoms: Hrs Current Symptoms Are (Timing): Still Present Suicide/Self Injury Attempted (Context): None Associated Symptoms: denies: Suicidal Thoughts, Suicidal Plan Additional History Per: Patient Past Medical History Reviewed: Historical Data, Nursing Documentation, Vital Signs Vital Signs: Last Vital Signs Temp 97.9 F 11/28/17 21:52 Pulse 74 11/28/17 21:52 Resp 20 11/28/17 21:52 BP 128/74 11/28/17 21:52 Pulse Ox 97 11/29/17 00:17 - Medical History PMH: Anxiety, Asthma, Bipolar Disorder, Depression, Diabetes, Gastritis, Hepatitis, HTN, Paranoia, Personality Disorder, Chronic Kidney Disease, Schizophrenia, Seizures, Chronic Pain Denies: HIV, Sexually Transmitted Disease Surgical History: No Surg Hx - [facility] Procedures APPLICATION OF SPLINT (04/09/14) CL FX REDUC-TIBIA/FIBULA (02/26/13) GROUP PSYCHOTHERAPY (10/15/17) INDIVID PSYCHOTHERAP NEC (12/17/13) INDIVIDUAL PSYCHOTHERAPY, BEHAVIORAL (01/29/16) INDIVIDUAL PSYCHOTHERAPY, COGNITIVE-BEHAVIORAL (07/30/17) INDIVIDUAL PSYCHOTHERAPY, SUPPORTIVE (06/01/17) MEDICATION MANAGEMENT (07/22/16) OTHER GROUP THERAPY (11/05/13) PSYCHIA INTERV/EVAL NEC (06/28/14) Family History: States: Unknown Family Hx - Social History Hx Tobacco Use: Yes Hx Alcohol Use: No Hx Substance Use: No - Immunization History Hx Tetanus Toxoid Vaccination: No Hx Influenza Vaccination: Yes Hx Pneumococcal Vaccination: Yes Review Of Systems Constitutional: Negative for: Fever, Chills Psych: Negative for: Suicidal ideation Physical Exam - Physical Exam Appears: Non-toxic, No Acute Distress, Other (dishelveled) Skin: Normal Color, Warm, Dry, No Other (obvious signs of injury/trauma ) Head: Atraumatic, Normacephalic Eye(s): bilateral: Normal Inspection Oral Mucosa: Moist Neck: Supple Chest: Symmetrical, No Deformity, No Tenderness Cardiovascular: Rhythm Regular Respiratory: No Accessory Muscle Use Extremity: Normal ROM Neurological/Psych: Oriented x3, Normal Speech, Normal Cognition ED Course And Treatment O2 Sat by Pulse Oximetry: 97 (on RA) Pulse Ox Interpretation: Normal Medical Decision Making Medical Decision Making: typical malingering no new issues no injuries VSS same exam- well known to this MD Disposition Doctor Will See Patient In The: Office Counseled Patient/Family Regarding: Studies Performed, Diagnosis - Disposition Referrals: [facility] [Outside] [facility] [Outside] [email or web address] [Outside] [facility] [Outside] [email or web address] [Outside] Disposition: HOME/ ROUTINE Disposition Time: 21:12 Condition: GOOD Additional Instructions: seek nightly group home placement seek outpatient psych services Instructions: Schizophrenia Forms: [facility] (Sami) - Clinical Impression Clinical Impression: Schizophrenia, Malingerer - Scribe Statement The provider has reviewed the documentation as recorded by the Scribe (Rosi Chow) Provider Attestation: All medical record entries made by the Scribe were at my direction and personally dictated by me. I have reviewed the chart and agree that the record accurately reflects my personal performance of the history, physical exam, medical decision making, and the department course for this patient. I have also personally directed, reviewed, and agree with the discharge instructions and disposition.
[2017-11-28 21:23] VITALS: RESP 20; TEMP 97.9; O2SAT 97
[2017-11-28 21:53] VITALS: BP 128/74; PULSE 74
== END 2017-11-28 21:52 | disposition home or self-care (01) ==
LOC: C.ER 20:59
DX: F20.9 Schizophrenia, unspecified (principal); Z76.5 Malingerer [conscious simulation]; Z72.0 Tobacco use

== ENCOUNTER → 2017-12-06 20:26 | Emergency (ER) | payer MEDICARE ==
[2017-12-06 20:26] VITALS: BMI 23.0
== END | disposition left against medical advice (07) ==
LOC: C.ER 20:26
DX: Z02.89 Encounter for other administrative examinations (principal); Z00.8 Encounter for other general examination

== ENCOUNTER 2017-12-15 23:18 | Emergency (ER) | payer MEDICARE ==
[2017-12-15 23:18] VITALS: BMI 23.0
[2017-12-15 23:43] VITALS: BP 106/75; PULSE 85; RESP 18; TEMP 98.1; O2SAT 99
--- NOTE | 2017-12-16 01:45 | C.PDOC ---
History Of Present Illness 57-year-old male with a PMHx of schizophrenia presents to the ED complaining of hearing voices for "some time now." States that he is hungry, requesting sandwich on arrival. Otherwise patient offers no physical complaints. Patient is well known to the ER with a history of many similar visits. He denies any suicidal or homicidal ideation. Time Seen by Provider: 12/15/17 23:20 Chief Complaint (Nursing): Medical Clearance History Per: Patient History/Exam Limitations: no limitations Onset/Duration Of Symptoms: Days Current Symptoms Are (Timing): Still Present Past Medical History Reviewed: Historical Data, Nursing Documentation, Vital Signs Vital Signs: Last Vital Signs Temp 98.1 F 12/15/17 23:40 Pulse 85 12/15/17 23:40 Resp 18 12/15/17 23:40 BP 106/75 12/15/17 23:40 Pulse Ox 99 12/16/17 01:45 - Medical History PMH: Anxiety, Asthma, Bipolar Disorder, Depression, Diabetes, Gastritis, Hepatitis, HTN, Paranoia, Personality Disorder, Chronic Kidney Disease, Schizophrenia, Seizures, Chronic Pain Denies: HIV, Sexually Transmitted Disease Surgical History: - [facility] Procedures APPLICATION OF SPLINT (04/09/14) CL FX REDUC-TIBIA/FIBULA (02/26/13) GROUP PSYCHOTHERAPY (12/07/17) INDIVID PSYCHOTHERAP NEC (12/17/13) INDIVIDUAL PSYCHOTHERAPY, BEHAVIORAL (01/29/16) INDIVIDUAL PSYCHOTHERAPY, COGNITIVE-BEHAVIORAL (12/07/17) INDIVIDUAL PSYCHOTHERAPY, SUPPORTIVE (06/01/17) MEDICATION MANAGEMENT (07/22/16) OTHER GROUP THERAPY (11/05/13) PSYCHIA INTERV/EVAL NEC (06/28/14) Family History: States: Unknown Family Hx - Social History Hx Tobacco Use: Yes Hx Alcohol Use: Yes (no longer drinks) Hx Substance Use: No - Immunization History Hx Tetanus Toxoid Vaccination: No Hx Influenza Vaccination: Yes Hx Pneumococcal Vaccination: Yes Review Of Systems Except As Marked, All Systems Reviewed And Found Negative. Constitutional: Negative for: Fever, Chills Cardiovascular: Negative for: Chest Pain Respiratory: Negative for: Shortness of Breath Gastrointestinal: Negative for: Vomiting Psych: Positive for: Other (Hearing voices, chronic per pt). Negative for: Suicidal ideation Physical Exam - Physical Exam Appears: Non-toxic, No Acute Distress Skin: Normal Color, Warm, Dry Head: Atraumatic, Normacephalic Eye(s): bilateral: Normal Inspection, PERRL, EOMI Nose: Normal Oral Mucosa: Moist Neck: Normal ROM Chest: Symmetrical Cardiovascular: Rhythm Regular, No Murmur Respiratory: Normal Breath Sounds, No Accessory Muscle Use Gastrointestinal/Abdominal: Soft, No Tenderness, No Distention Extremity: Bilateral: Atraumatic, Normal Color And Temperature, Normal ROM Neurological/Psych: Oriented x3, Normal Speech ED Course And Treatment O2 Sat by Pulse Oximetry: 99 (RA) Pulse Ox Interpretation: Normal Medical Decision Making Medical Decision Making: Patient is resting comfortably in stretcher. Offers no complaints. In no acute distress. 1:30am Informed by RN that patient had eloped from the ER. Disposition - Disposition Referrals: Non [facility] Provider, [Primary Care Provider] - Disposition: ELOPEMENT - ER ONLY Disposition Time: 01:30 Condition: UNKNOWN Forms: [facility] (Lao) - POA Present On Arrival: None - Clinical Impression Clinical Impression: Polysubstance (excluding opioids) dependence, daily use, Schizophrenia, Homeless - Scribe Statement The provider has reviewed the documentation as recorded by the Leonard Natarajan Provider Attestation: All medical record entries made by the Leonard were at my direction and personally dictated by me. I have reviewed the chart and agree that the record accurately reflects my personal performance of the history, physical exam, medical decision making, and the department course for this patient. I have also personally directed, reviewed, and agree with the discharge instructions and disposition.
== END 2017-12-16 01:30 | disposition left against medical advice (07) ==
LOC: SUPCPDRO 23:18 → C.ER 23:18
DX: F20.9 Schizophrenia, unspecified (principal); F19.20 Other psychoactive substance dependence, uncomplicated; Z59.0 Homelessness

== ENCOUNTER 2017-12-26 23:09 | Emergency (ER) | payer MEDICARE ==
[2017-12-26 23:10] VITALS: BMI 23.0
--- NOTE | 2017-12-26 23:40 | C.PDOC ---
History Of Present Illness Originally signed up for pt, however went to [facility] and patient was seen by different provider. Time Seen by Provider: 12/26/17 23:38 Chief Complaint (Nursing): Medical Clearance Past Medical History Vital Signs: Last Vital Signs Temp 98.1 F 12/27/17 05:30 Pulse 83 12/27/17 05:30 Resp 20 12/27/17 05:30 BP 117/77 12/27/17 05:30 Pulse Ox 100 12/27/17 19:46 - Medical History PMH: Anxiety, Asthma, Bipolar Disorder, Depression, Diabetes, Gastritis, Hepatitis, HTN, Paranoia, Personality Disorder, Chronic Kidney Disease, Schizophrenia, Seizures, Chronic Pain Denies: HIV, Sexually Transmitted Disease Surgical History: - [facility] Procedures APPLICATION OF SPLINT (04/09/14) CL FX REDUC-TIBIA/FIBULA (02/26/13) GROUP PSYCHOTHERAPY (12/07/17) INDIVID PSYCHOTHERAP NEC (12/17/13) INDIVIDUAL PSYCHOTHERAPY, BEHAVIORAL (01/29/16) INDIVIDUAL PSYCHOTHERAPY, COGNITIVE-BEHAVIORAL (12/07/17) INDIVIDUAL PSYCHOTHERAPY, SUPPORTIVE (06/01/17) MEDICATION MANAGEMENT (07/22/16) OTHER GROUP THERAPY (11/05/13) PSYCHIA INTERV/EVAL NEC (06/28/14) Family History: States: Unknown Family Hx - Social History Hx Tobacco Use: Yes Hx Alcohol Use: No (no longer drinks) Hx Substance Use: No - Immunization History Hx Tetanus Toxoid Vaccination: Yes Hx Influenza Vaccination: Yes Hx Pneumococcal Vaccination: Yes Disposition - Disposition Referrals: Candy Summers MD [Staff Provider] - Disposition: HOME/ ROUTINE Disposition Time: 13:00 Condition: GOOD Additional Instructions: Follow up in the clinic for any further care Forms: General Discharge Instructions, [facility] [facility] (Greek) - Clinical Impression Clinical Impression: Schizophrenia
[2017-12-27 00:19] VITALS: RESP 20
--- NOTE | 2017-12-27 05:26 | C.PDOC ---
History Of Present Illness Patient presents to ED looking for assisted to sleep. Patient is well known to ED with multiple visits. Patient offers no complaints. No signs of apparent injury. Denies any pain or drug use. Time Seen by Provider: 12/26/17 23:38 Chief Complaint (Nursing): Medical Clearance History Per: Patient History/Exam Limitations: no limitations Past Medical History Reviewed: Historical Data, Nursing Documentation, Vital Signs Vital Signs: Last Vital Signs Temp 98.4 F 12/26/17 23:38 Pulse 75 12/26/17 23:38 Resp 20 12/26/17 23:38 BP 144/86 12/26/17 23:38 Pulse Ox 100 12/26/17 23:38 - Medical History PMH: Anxiety, Asthma, Bipolar Disorder, Depression, Diabetes, Gastritis, Hepatitis, HTN, Paranoia, Personality Disorder, Chronic Kidney Disease, Schizophrenia, Seizures, Chronic Pain Surgical History: - [facility] Procedures APPLICATION OF SPLINT (04/09/14) CL FX REDUC-TIBIA/FIBULA (02/26/13) GROUP PSYCHOTHERAPY (12/07/17) INDIVID PSYCHOTHERAP NEC (12/17/13) INDIVIDUAL PSYCHOTHERAPY, BEHAVIORAL (01/29/16) INDIVIDUAL PSYCHOTHERAPY, COGNITIVE-BEHAVIORAL (12/07/17) INDIVIDUAL PSYCHOTHERAPY, SUPPORTIVE (06/01/17) MEDICATION MANAGEMENT (07/22/16) OTHER GROUP THERAPY (11/05/13) PSYCHIA INTERV/EVAL NEC (06/28/14) Family History: States: Unknown Family Hx - Social History Hx Tobacco Use: Yes Hx Alcohol Use: No (no longer drinks) Hx Substance Use: No - Immunization History Hx Tetanus Toxoid Vaccination: Yes Hx Influenza Vaccination: Yes Hx Pneumococcal Vaccination: Yes Review Of Systems Except As Marked, All Systems Reviewed And Found Negative. Psych: Positive for: Other (schizophrenia) Physical Exam - Physical Exam Appears: Well, Non-toxic, No Acute Distress Skin: Warm, Dry Head: Atraumatic, Normacephalic Eye(s): bilateral: Normal Inspection, EOMI Oral Mucosa: Moist Neck: Normal ROM Chest: Symmetrical Cardiovascular: Rhythm Regular, No Edema Respiratory: Normal Breath Sounds, No Wheezing Extremity: Bilateral: Atraumatic, Normal ROM Neurological/Psych: Oriented x3, Normal Speech ED Course And Treatment O2 Sat by Pulse Oximetry: 100 Medical Decision Making Medical Decision Making: Patient needs place to sleep for the night. Will allow to sleep in ED til AM. Patient slept for several hours without disturbance or any complaint. Patient alert and oriented and stable for discharge. Disposition - Disposition Referrals: Candy Summers MD [Staff Provider] - Disposition: HOME/ ROUTINE Disposition Time: 05:26 Condition: GOOD Additional Instructions: Follow up in the clinic for any further care Forms: [facility] (Croatian), General Discharge Instructions - POA Present On Arrival: None - Clinical Impression Clinical Impression: Schizophrenia
[2017-12-27 05:30] VITALS: BP 117/77; PULSE 83; TEMP 98.1
[2017-12-27 19:47] VITALS: O2SAT 100
== END 2017-12-27 05:41 | disposition home or self-care (01) ==
LOC: C.ER 23:09
DX: F20.9 Schizophrenia, unspecified (principal)

== ENCOUNTER 2017-12-27 21:49 | Emergency (ER) | payer MEDICARE ==
[2017-12-27 21:49] VITALS: BMI 23.0
--- NOTE | 2017-12-28 00:01 | C.PDOC ---
History Of Present Illness 57 year old male patient presents to ED looking for detention to sleep. Patient is well known to ED with multiple visits. Patient offers no complaints. No signs of apparent injury. Denies any pain or drug use. Time Seen by Provider: 12/27/17 22:22 Chief Complaint (Nursing): Medical Clearance History Per: Patient History/Exam Limitations: no limitations Onset/Duration Of Symptoms: Hrs Current Symptoms Are (Timing): Still Present Additional History Per: Patient Past Medical History Reviewed: Historical Data, Nursing Documentation, Vital Signs Vital Signs: Last Vital Signs Temp 98 F 12/28/17 05:09 Pulse 71 12/28/17 05:09 Resp 20 12/28/17 05:09 BP 121/78 12/28/17 05:09 Pulse Ox 99 12/28/17 05:09 - Medical History PMH: Anxiety, Asthma, Bipolar Disorder, Depression, Diabetes, Gastritis, Hepatitis, HTN, Paranoia, Personality Disorder, Chronic Kidney Disease, Schizophrenia, Seizures, Chronic Pain Denies: HIV, Sexually Transmitted Disease Surgical History: No Surg Hx - [facility] Procedures APPLICATION OF SPLINT (04/09/14) CL FX REDUC-TIBIA/FIBULA (02/26/13) GROUP PSYCHOTHERAPY (12/07/17) INDIVID PSYCHOTHERAP NEC (12/17/13) INDIVIDUAL PSYCHOTHERAPY, BEHAVIORAL (01/29/16) INDIVIDUAL PSYCHOTHERAPY, COGNITIVE-BEHAVIORAL (12/07/17) INDIVIDUAL PSYCHOTHERAPY, SUPPORTIVE (06/01/17) MEDICATION MANAGEMENT (07/22/16) OTHER GROUP THERAPY (11/05/13) PSYCHIA INTERV/EVAL NEC (06/28/14) Family History: States: Unknown Family Hx - Social History Hx Tobacco Use: Yes Hx Alcohol Use: No (no longer drinks) Hx Substance Use: No - Immunization History Hx Tetanus Toxoid Vaccination: Yes Hx Influenza Vaccination: Yes Hx Pneumococcal Vaccination: Yes Review Of Systems Except As Marked, All Systems Reviewed And Found Negative. Psych: Positive for: Other (schizophrenia ) Physical Exam - Physical Exam Appears: Well, Non-toxic, No Acute Distress Skin: Warm, Dry Head: Atraumatic, Normacephalic Eye(s): bilateral: Normal Inspection Oral Mucosa: Moist Neck: Normal ROM, Supple Chest: Symmetrical Cardiovascular: Rhythm Regular Respiratory: No Accessory Muscle Use Extremity: Normal ROM Extremity: Bilateral: Atraumatic Neurological/Psych: Oriented x3, Normal Speech ED Course And Treatment O2 Sat by Pulse Oximetry: 98 (on RA) Pulse Ox Interpretation: Normal Medical Decision Making Medical Decision Making: Progress: Patient needs place to sleep for the night. Will allow to sleep in ED til AM. Patient slept for several hours without disturbance or any complaint. Patient alert and oriented and stable for discharge. Disposition Counseled Patient/Family Regarding: Diagnosis, Need For Followup - Disposition Referrals: Non [facility] Provider, [Primary Care Provider] - Disposition: HOME/ ROUTINE Disposition Time: 05:00 Condition: STABLE Instructions: Schizophrenia (DC) Forms: [employer] (Urdu) - POA Present On Arrival: None - Clinical Impression Clinical Impression: Schizophrenia - PA / ARCHIVIST ECONOMIC HISTORY / Resident Statement MD/DO has reviewed & agrees with the documentation as recorded. - Scribe Statement The provider has reviewed the documentation as recorded by the Scribe (Rosi Chow) All medical record entries made by the Scribe were at my direction and personally dictated by me. I have reviewed the chart and agree that the record accurately reflects my personal performance of the history, physical exam, medical decision making, and the department course for this patient. I have also personally directed, reviewed, and agree with the discharge instructions and disposition.
[2017-12-28 02:37] VITALS: RESP 20
[2017-12-28 05:11] VITALS: BP 121/78; PULSE 71; TEMP 98
[2017-12-28 06:13] VITALS: O2SAT 98
== END 2017-12-28 05:10 | disposition home or self-care (01) ==
LOC: C.ER 21:49 → SUPCPDRO 21:49 → C.ER 12-28 05:10
DX: F20.9 Schizophrenia, unspecified (principal)

== ENCOUNTER 2017-12-29 20:55 | Emergency (ER) | payer MEDICARE ==
[2017-12-29 20:56] VITALS: BMI 23.0
[2017-12-29 21:15] VITALS: BP 131/86; PULSE 73; RESP 20; TEMP 98.5; O2SAT 100
--- NOTE | 2017-12-29 21:30 | C.PDOC ---
History Of Present Illness 57 yo male w/PMHx of schizophrenia, homeless, well known to ED due to daily visits with same complaints " hearing voices". Pt reports, " Im still hearing voices". Pt denies homocidal or suicidal ideation, denies alcohol use. Ambulate to Ed for evaluation, appears at baseline. Time Seen by Provider: 12/29/17 21:20 Chief Complaint (Nursing): Medical Clearance History Per: Patient Past Medical History Reviewed: Historical Data, Nursing Documentation, Vital Signs Vital Signs: Last Vital Signs Temp 98.5 F 12/29/17 21:11 Pulse 73 12/29/17 21:11 Resp 20 12/29/17 21:11 BP 131/86 12/29/17 21:11 Pulse Ox 100 12/29/17 21:11 - Medical History PMH: Anxiety, Asthma, Bipolar Disorder, Depression, Diabetes, Gastritis, Hepatitis, HTN, Paranoia, Personality Disorder, Chronic Kidney Disease, Schizophrenia, Seizures, Chronic Pain Denies: HIV, Sexually Transmitted Disease Surgical History: - [facility] Procedures APPLICATION OF SPLINT (04/09/14) CL FX REDUC-TIBIA/FIBULA (02/26/13) GROUP PSYCHOTHERAPY (12/07/17) INDIVID PSYCHOTHERAP NEC (12/17/13) INDIVIDUAL PSYCHOTHERAPY, BEHAVIORAL (01/29/16) INDIVIDUAL PSYCHOTHERAPY, COGNITIVE-BEHAVIORAL (12/07/17) INDIVIDUAL PSYCHOTHERAPY, SUPPORTIVE (06/01/17) MEDICATION MANAGEMENT (07/22/16) OTHER GROUP THERAPY (11/05/13) PSYCHIA INTERV/EVAL NEC (06/28/14) Family History: States: Unknown Family Hx - Social History Hx Tobacco Use: Yes Hx Alcohol Use: No (no longer drinks) Hx Substance Use: No - Immunization History Hx Tetanus Toxoid Vaccination: Yes Hx Influenza Vaccination: Yes Hx Pneumococcal Vaccination: Yes Review Of Systems Except As Marked, All Systems Reviewed And Found Negative. Constitutional: Negative for: Fever, Chills Eyes: Negative for: Vision Change ENT: Negative for: Ear Discharge, Nose Discharge, Throat Pain Cardiovascular: Negative for: Chest Pain, Palpitations, Edema, Light Headedness Respiratory: Negative for: Cough, Shortness of Breath, Wheezing Gastrointestinal: Negative for: Nausea, Vomiting, Abdominal Pain, Diarrhea Genitourinary: Negative for: Dysuria, Incontinence Musculoskeletal: Negative for: Neck Pain, Back Pain Skin: Negative for: Rash, Bruising Neurological: Negative for: Altered Mental Status, Headache, Dizziness Physical Exam - Physical Exam Appears: Well, Non-toxic, No Acute Distress Skin: Normal Color, Warm, Dry, No Ecchymosis Head: Atraumatic, Normacephalic Eye(s): bilateral: PERRL, EOMI Nose: No Discharge Oral Mucosa: Moist, No Drooling, No Trismus Tongue: Normal Appearing Lips: Normal Appearing Throat: No Drooling Neck: Trachea Midline, No Midline Cervical Tenderness, No Paracervical Tenderness, No Step Off Deformity, Supple Chest: Symmetrical, No Deformity, No Tenderness Cardiovascular: Rhythm Regular Respiratory: No Decreased Breath Sounds, No Accessory Muscle Use, No Stridor, No Wheezing Gastrointestinal/Abdominal: Soft, No Tenderness Back: No Vertebral Tenderness Extremity: Normal ROM, No Deformity, No Swelling Extremity: Bilateral: Atraumatic Neurological/Psych: Oriented x3, Normal Speech, Normal Cognition, Normal Motor, Normal Sensation, Normal Reflexes ED Course And Treatment O2 Sat by Pulse Oximetry: 100 Pulse Ox Interpretation: Normal Progress Note: On re-evaluation, pt is AOO#3, not in any apparent distress. Afebrile, hemodynamicaly stable. Non-toxic. Ambulatory in Ed with stable gait. PulsEOx 100% RA. Head: AT/NC. Neck: Supple, (-) midline tenderness. Lungs: CTA B/L, BS equal B/L. CVS: [id number], (-) murmur. Abd: benign. Neurologicaly intact. patient is well known to ED from daily visits to ED du eto same complaints. Pt hs clinical ifnidngs c/w schizophrenia and appea at his baseline mental status, denies suicidal or homocidal ideation. Last PES eval was yesterday-cleared from psych. Pt advised. ref. to F/u with PMD, Psych in 1-2 days for re-eval. return to ED if any worsening or new changes. Disposition Counseled Patient/Family Regarding: Diagnosis, Need For Followup - Disposition Referrals: [facility] [Outside] Disposition: HOME/ ROUTINE Disposition Time: 21:28 Condition: STABLE Instructions: Schizophrenia - Clinical Impression Clinical Impression: Schizophrenia
== END 2017-12-29 21:40 | disposition home or self-care (01) ==
LOC: C.ER 20:55
DX: F20.9 Schizophrenia, unspecified (principal); Z59.0 Homelessness

== ENCOUNTER 2018-01-03 23:19 | Emergency (ER) | payer MEDICARE ==
[2018-01-03 23:19] VITALS: BMI 23.0
[2018-01-03 23:37] VITALS: BP 120/85; PULSE 89; RESP 20; TEMP 98.4; O2SAT 98
--- NOTE | 2018-01-04 01:12 | C.PDOC ---
History Of Present Illness 57 year old male presents to the ED for evaluation. Patient states he does not feel well. Patient has multiple prior visits to the ED with same complaint. Patient denies SI/HI, hallucinations, fever, chills, CP, SOB. Time Seen by Provider: 01/03/18 23:43 Chief Complaint (Nursing): Medical Clearance History Per: Patient History/Exam Limitations: no limitations Onset/Duration Of Symptoms: Days Current Symptoms Are (Timing): Still Present Recent travel outside of the [place]: No Additional History Per: Patient Past Medical History Reviewed: Historical Data, Nursing Documentation, Vital Signs Vital Signs: Last Vital Signs Temp 98.4 F 01/03/18 23:32 Pulse 89 01/03/18 23:32 Resp 20 01/03/18 23:32 BP 120/85 01/03/18 23:32 Pulse Ox 98 01/03/18 23:32 - Medical History PMH: Anxiety, Asthma, Bipolar Disorder, Depression, Diabetes, Gastritis, Hepatitis, HTN, Paranoia, Personality Disorder, Chronic Kidney Disease, Schizophrenia, Seizures, Chronic Pain Denies: HIV, Sexually Transmitted Disease Surgical History: No Surg Hx - [facility] Procedures APPLICATION OF SPLINT (04/09/14) CL FX REDUC-TIBIA/FIBULA (02/26/13) GROUP PSYCHOTHERAPY (12/07/17) INDIVID PSYCHOTHERAP NEC (12/17/13) INDIVIDUAL PSYCHOTHERAPY, BEHAVIORAL (01/29/16) INDIVIDUAL PSYCHOTHERAPY, COGNITIVE-BEHAVIORAL (12/07/17) INDIVIDUAL PSYCHOTHERAPY, SUPPORTIVE (06/01/17) MEDICATION MANAGEMENT (07/22/16) OTHER GROUP THERAPY (11/05/13) PSYCHIA INTERV/EVAL NEC (06/28/14) Family History: States: Unknown Family Hx - Social History Hx Tobacco Use: Yes Hx Alcohol Use: No (no longer drinks) Hx Substance Use: No - Immunization History Hx Tetanus Toxoid Vaccination: Yes Hx Influenza Vaccination: Yes Hx Pneumococcal Vaccination: Yes Review Of Systems Constitutional: Negative for: Fever, Chills Cardiovascular: Negative for: Chest Pain Respiratory: Negative for: Shortness of Breath Gastrointestinal: Negative for: Nausea, Vomiting, Abdominal Pain Skin: Negative for: Rash Neurological: Negative for: Weakness, Numbness Psych: Negative for: Depression, Suicidal ideation Physical Exam - Physical Exam Appears: Non-toxic, No Acute Distress Skin: Normal Color, Warm, Dry Head: Atraumatic, Normacephalic Eye(s): bilateral: Normal Inspection Neck: Normal ROM, Supple Chest: Symmetrical Cardiovascular: Rhythm Regular Respiratory: Normal Breath Sounds, No Rales, No Rhonchi, No Wheezing Gastrointestinal/Abdominal: Soft, No Tenderness, No Guarding, No Rebound Extremity: Normal ROM, No Tenderness, No Swelling Neurological/Psych: Oriented x3, Normal Speech, Normal Cognition Gait: Steady ED Course And Treatment O2 Sat by Pulse Oximetry: 98 (ON RA) Pulse Ox Interpretation: Normal Progress Note: On reassessment, patient is resting comfortably, and is in no acute distress. Patient was instructed to follow up with physician/clinic in 1-2 days for further evaluation. Disposition - Disposition Disposition: HOME/ ROUTINE Disposition Time: 00:40 Condition: STABLE Forms: [employer] [facility] (Israeli) - Clinical Impression Clinical Impression: Encounter for limited medical examination - PA / WAREHOUSE OPERATOR / Resident Statement MD/DO has reviewed & agrees with the documentation as recorded. - Scribe Statement The provider has reviewed the documentation as recorded by the Scribe Jarod Jett All medical record entries made by the Scribe were at my direction and personally dictated by me. I have reviewed the chart and agree that the record accurately reflects my personal performance of the history, physical exam, medical decision making, and the department course for this patient. I have also personally directed, reviewed, and agree with the discharge instructions and disposition.
== END 2018-01-04 01:03 | disposition home or self-care (01) ==
LOC: C.ER 23:19
DX: Z00.00 Encounter for general adult medical examination without abnormal findings (principal); Z72.0 Tobacco use; I12.9 Hypertensive chronic kidney disease with stage 1 through stage 4 chronic kidney disease, or unspecified chronic kidney disease; N18.9 Chronic kidney disease, unspecified; F20.9 Schizophrenia, unspecified

== ENCOUNTER 2018-01-04 09:03 | Emergency (ER) | payer MEDICARE ==
[2018-01-04 09:03] VITALS: BMI 23.0
[2018-01-04 09:18] VITALS: BP 118/79; PULSE 98; RESP 16; TEMP 98.8; O2SAT 95
--- NOTE | 2018-01-04 09:27 | C.PDOC ---
History Of Present Illness 57-year-old male, presents to the emergency department with complaints of auditory hallucinations. Pt has a PMHx of schizophrenia, and a Hx of multiple visits to ED for same complaint. He denies SI/HI. No other complaints at this time Time Seen by Provider: 01/04/18 09:08 Chief Complaint (Nursing): Psychiatric Evaluation History Per: Patient History/Exam Limitations: no limitations Current Symptoms Are (Timing): Still Present Past Medical History Reviewed: Historical Data, Nursing Documentation, Vital Signs Vital Signs: Last Vital Signs Temp 98.8 F 01/04/18 09:15 Pulse 98 H 01/04/18 09:15 Resp 16 01/04/18 09:15 BP 118/79 01/04/18 09:15 Pulse Ox 95 01/04/18 09:15 - Medical History PMH: Anxiety, Asthma, Bipolar Disorder, Depression, Diabetes, Gastritis, Hepatitis, HTN, Paranoia, Personality Disorder, Chronic Kidney Disease, Schizophrenia, Seizures, Chronic Pain Denies: HIV, Sexually Transmitted Disease Surgical History: - [facility] Procedures APPLICATION OF SPLINT (04/09/14) CL FX REDUC-TIBIA/FIBULA (02/26/13) GROUP PSYCHOTHERAPY (12/07/17) INDIVID PSYCHOTHERAP NEC (12/17/13) INDIVIDUAL PSYCHOTHERAPY, BEHAVIORAL (01/29/16) INDIVIDUAL PSYCHOTHERAPY, COGNITIVE-BEHAVIORAL (12/07/17) INDIVIDUAL PSYCHOTHERAPY, SUPPORTIVE (06/01/17) MEDICATION MANAGEMENT (07/22/16) OTHER GROUP THERAPY (11/05/13) PSYCHIA INTERV/EVAL NEC (06/28/14) Family History: States: No Known Family Hx - Social History Hx Tobacco Use: Yes Hx Alcohol Use: No (no longer drinks) Hx Substance Use: No - Immunization History Hx Tetanus Toxoid Vaccination: Yes Hx Influenza Vaccination: Yes Hx Pneumococcal Vaccination: Yes Review Of Systems Constitutional: Negative for: Fever Gastrointestinal: Negative for: Vomiting Skin: Negative for: Rash Psych: Negative for: Psychosis, Suicidal ideation, Withdrawal Physical Exam - Physical Exam Appears: Non-toxic, No Acute Distress Skin: Warm, Dry, No Rash Head: Atraumatic, Normacephalic Eye(s): bilateral: Normal Inspection Nose: Normal Oral Mucosa: Moist Lips: Normal Appearing Neck: Normal ROM Respiratory: No Accessory Muscle Use (No apparent respiratory distres) Back: Normal Inspection Extremity: Normal ROM, No Deformity Neurological/Psych: Oriented x3, Normal Speech ED Course And Treatment O2 Sat by Pulse Oximetry: 95 Pulse Ox Interpretation: Normal (RA) Disposition - Disposition Disposition: HOME/ ROUTINE Disposition Time: 09:30 Condition: STABLE Additional Instructions: Follow up with the medical doctor within 1-2 days. Return if worsened. Instructions: Schizophrenia Forms: [employer] [facility] (Mongolian) - Clinical Impression Clinical Impression: Normal exam, Schizophrenia - Scribe Statement The provider has reviewed the documentation as recorded by the Scribe (Arabella Brandon) All medical record entries made by the Scribe were at my direction and p ersonally dictated by me. I have reviewed the chart and agree that the record accurately reflects my personal performance of the history, physical exam, medical decision making, and the department course for this patient. I have also personally directed, reviewed, and agree with the discharge instructions and disposition.
== END 2018-01-04 09:36 | disposition home or self-care (01) ==
LOC: C.ER 09:03
DX: F20.9 Schizophrenia, unspecified (principal)

== ENCOUNTER 2018-01-11 01:16 | Emergency (ER) | payer MEDICARE ==
[2018-01-11 01:16] VITALS: BMI 23.0
[2018-01-11 01:21] VITALS: BP 122/69; PULSE 72; RESP 18; TEMP 98; O2SAT 98
--- NOTE | 2018-01-11 01:47 | C.PDOC ---
History Of Present Illness 58 year old male presents to the ED looking for a place to spend the night. Patient has multiple prior visits to the ED with the same presentation. Patient denies SI/HI, hallucinations, CP, SOB, injury, fall, trauma. Chief Complaint (Nursing): Medical Clearance History Per: Patient History/Exam Limitations: no limitations Onset/Duration Of Symptoms: Hrs Current Symptoms Are (Timing): Still Present Recent travel outside of the [place]: No Additional History Per: Patient Past Medical History Reviewed: Historical Data, Nursing Documentation, Vital Signs Vital Signs: Last Vital Signs Temp 98 F 01/11/18 01:19 Pulse 72 01/11/18 01:19 Resp 18 01/11/18 01:19 BP 122/69 01/11/18 01:19 Pulse Ox 98 01/11/18 01:19 - Medical History PMH: Anxiety, Asthma, Bipolar Disorder, Depression, Diabetes, Gastritis, Hepatitis, HTN, Paranoia, Personality Disorder, Chronic Kidney Disease, Schizophrenia, Seizures, Chronic Pain Denies: HIV, Sexually Transmitted Disease Surgical History: No Surg Hx - [facility] Procedures APPLICATION OF SPLINT (04/09/14) CL FX REDUC-TIBIA/FIBULA (02/26/13) GROUP PSYCHOTHERAPY (12/07/17) INDIVID PSYCHOTHERAP NEC (12/17/13) INDIVIDUAL PSYCHOTHERAPY, BEHAVIORAL (01/29/16) INDIVIDUAL PSYCHOTHERAPY, COGNITIVE-BEHAVIORAL (12/07/17) INDIVIDUAL PSYCHOTHERAPY, SUPPORTIVE (06/01/17) MEDICATION MANAGEMENT (07/22/16) OTHER GROUP THERAPY (11/05/13) PSYCHIA INTERV/EVAL NEC (06/28/14) Family History: States: Unknown Family Hx - Social History Hx Tobacco Use: Yes Hx Alcohol Use: No (no longer drinks) Hx Substance Use: No - Immunization History Hx Tetanus Toxoid Vaccination: Yes Hx Influenza Vaccination: Yes Hx Pneumococcal Vaccination: Yes Review Of Systems Constitutional: Negative for: Fever, Chills Cardiovascular: Negative for: Chest Pain Respiratory: Negative for: Shortness of Breath Gastrointestinal: Negative for: Nausea, Vomiting, Abdominal Pain Skin: Negative for: Rash Psych: Negative for: Depression, Suicidal ideation Physical Exam - Physical Exam Appears: Non-toxic, No Acute Distress Skin: Normal Color, Warm, Dry Head: Atraumatic, Normacephalic Eye(s): bilateral: Normal Inspection Neck: Normal ROM, Supple Chest: Symmetrical Cardiovascular: Rhythm Regular Respiratory: Normal Breath Sounds, No Rales, No Rhonchi, No Wheezing Gastrointestinal/Abdominal: Soft, No Tenderness, No Guarding, No Rebound Extremity: Normal ROM, No Tenderness, No Swelling Neurological/Psych: Oriented x3, Normal Speech, Normal Cognition Gait: Steady ED Course And Treatment O2 Sat by Pulse Oximetry: 98 (ON RA) Pulse Ox Interpretation: Normal Disposition - Disposition Referrals: Non [facility] Provider, [Primary Care Provider] - Disposition: HOME/ ROUTINE Disposition Time: 01:38 Condition: GOOD Forms: [employer] [facility] (Pashto) - Clinical Impression Clinical Impression: Encounter for limited medical examination - PA / INDUSTRIAL PAINTER / Resident Statement MD/DO has reviewed & agrees with the documentation as recorded. - Scribe Statement The provider has reviewed the documentation as recorded by the Scribe Jarod Jett All medical record entries made by the Scribe were at my direction and p ersonally dictated by me. I have reviewed the chart and agree that the record accurately reflects my personal performance of the history, physical exam, medical decision making, and the department course for this patient. I have also personally directed, reviewed, and agree with the discharge instructions and disposition.
== END 2018-01-11 01:42 | disposition home or self-care (01) ==
LOC: SUPCPDRO 01:16 → C.ER 01:16
DX: Z04.89 Encounter for examination and observation for other specified reasons (principal)

== ENCOUNTER 2018-01-15 01:21 | Emergency (ER) | payer MEDICARE ==
[2018-01-15 01:21] VITALS: BMI 23.0
[2018-01-15 01:36] VITALS: RESP 20
--- NOTE | 2018-01-15 01:41 | C.PDOC ---
History Of Present Illness 58 y/o male presents to the ED complaining of auditory hallucinations. The patient denies any suicidal ideation, suicidal plan or homicidal ideation. He offers no medical complaints at this time. Time Seen by Provider: 01/15/18 01:37 Chief Complaint (Nursing): Medical Clearance History Per: Patient History/Exam Limitations: no limitations Onset/Duration Of Symptoms: Hrs Current Symptoms Are (Timing): Still Present Recent travel outside of the [place]: No Past Medical History Reviewed: Historical Data, Nursing Documentation, Vital Signs Vital Signs: Last Vital Signs Temp 98 F 01/15/18 01:30 Pulse 88 01/15/18 01:30 Resp 20 01/15/18 01:30 BP 122/72 01/15/18 01:30 Pulse Ox 97 01/15/18 01:30 - Medical History PMH: Anxiety, Asthma, Bipolar Disorder, Depression, Diabetes, Gastritis, Hepa titis, HTN, Paranoia, Personality Disorder, Chronic Kidney Disease, Schizophrenia, Seizures, Chronic Pain Denies: HIV, Sexually Transmitted Disease Surgical History: Other Surgeries: Orthopedic surgery - [facility] Procedures APPLICATION OF SPLINT (04/09/14) CL FX REDUC-TIBIA/FIBULA (02/26/13) GROUP PSYCHOTHERAPY (12/07/17) INDIVID PSYCHOTHERAP NEC (12/17/13) INDIVIDUAL PSYCHOTHERAPY, BEHAVIORAL (01/29/16) INDIVIDUAL PSYCHOTHERAPY, COGNITIVE-BEHAVIORAL (12/07/17) INDIVIDUAL PSYCHOTHERAPY, SUPPORTIVE (06/01/17) MEDICATION MANAGEMENT (07/22/16) OTHER GROUP THERAPY (11/05/13) PSYCHIA INTERV/EVAL NEC (06/28/14) Family History: States: Unknown Family Hx - Social History Hx Tobacco Use: Yes Hx Alcohol Use: No (no longer drinks) Hx Substance Use: No - Immunization History Hx Tetanus Toxoid Vaccination: Yes Hx Influenza Vaccination: Yes Hx Pneumococcal Vaccination: Yes Review Of Systems Constitutional: Negative for: Fever, Chills Neurological: Negative for: Confusion, Altered Mental Status Psych: Negative for: Anxiety, Depression, Suicidal ideation, Other (Homicidal Ideation) ED Course And Treatment O2 Sat by Pulse Oximetry: 97 Medical Decision Making Medical Decision Making: Impression: 58 y/o male complaining of auditory hallucinations Plan: -Allow patient to sleep in safe environment. Will observe in ED. Discharge in the morning. Disposition - Disposition
--- NOTE | 2018-01-15 01:49 | C.PDOC ---
History Of Present Illness 58 y/o male presents to the ED complaining of auditory hallucinations. The patient denies any suicidal ideation, suicidal plan or homicidal ideation. He offers no medical complaints at this time Time Seen by Provider: 01/15/18 01:37 Chief Complaint (Nursing): Medical Clearance History Per: Patient History/Exam Limitations: no limitations Onset/Duration Of Symptoms: Hrs Current Symptoms Are (Timing): Still Present Recent travel outside of the [place]: No Past Medical History Reviewed: Historical Data, Nursing Documentation, Vital Signs Vital Signs: Last Vital Signs Temp 98 F 01/15/18 01:30 Pulse 88 01/15/18 01:30 Resp 20 01/15/18 01:30 BP 122/72 01/15/18 01:30 Pulse Ox 97 01/15/18 01:30 - Medical History PMH: Anxiety, Asthma, Bipolar Disorder, Depression, Diabetes, Gastritis, Hepat itis, HTN, Paranoia, Personality Disorder, Chronic Kidney Disease, Schizophrenia, Seizures, Chronic Pain Surgical History: Other Surgeries: Orthopedic surgery - [facility] Procedures APPLICATION OF SPLINT (04/09/14) CL FX REDUC-TIBIA/FIBULA (02/26/13) GROUP PSYCHOTHERAPY (12/07/17) INDIVID PSYCHOTHERAP NEC (12/17/13) INDIVIDUAL PSYCHOTHERAPY, BEHAVIORAL (01/29/16) INDIVIDUAL PSYCHOTHERAPY, COGNITIVE-BEHAVIORAL (12/07/17) INDIVIDUAL PSYCHOTHERAPY, SUPPORTIVE (06/01/17) MEDICATION MANAGEMENT (07/22/16) OTHER GROUP THERAPY (11/05/13) PSYCHIA INTERV/EVAL NEC (06/28/14) Family History: States: Unknown Family Hx - Social History Hx Tobacco Use: Yes Hx Alcohol Use: No (no longer drinks) Hx Substance Use: No - Immunization History Hx Tetanus Toxoid Vaccination: Yes Hx Influenza Vaccination: Yes Hx Pneumococcal Vaccination: Yes Review Of Systems Constitutional: Negative for: Fever, Chills Neurological: Negative for: Confusion, Altered Mental Status Psych: Negative for: Anxiety, Depression, Suicidal ideation, Other (homicidal ideation) Physical Exam - Physical Exam Appears: Well, Non-toxic, No Acute Distress Skin: Warm, Dry, No Rash Head: Atraumatic, Normacephalic Eye(s): bilateral: Normal Inspection Oral Mucosa: Moist Neck: Normal ROM Chest: Symmetrical Cardiovascular: Rhythm Regular, No Murmur Respiratory: Normal Breath Sounds, No Rales, No Rhonchi, No Wheezing Gastrointestinal/Abdominal: Bowel Sounds, Soft, No Tenderness, No Distention Extremity: Bilateral: Atraumatic, Normal Color And Temperature, Normal ROM Neurological/Psych: Oriented x3, Normal Speech Gait: Steady ED Course And Treatment O2 Sat by Pulse Oximetry: 97 (RA) Pulse Ox Interpretation: Normal Medical Decision Making Medical Decision Making: Impression: 58 y/o male complaining of auditory hallucinations Plan: -Allow patient to sleep in safe environment. Will observe in ED. Discharge in the morning. Disposition Counseled Patient/Family Regarding: Need For Followup - Disposition Referrals: [facility] [Outside] [facility] [Outside] Disposition: HOME/ ROUTINE Disposition Time: 05:20 Condition: STABLE Instructions: Schizophrenia (DC) - POA Present On Arrival: None - Clinical Impression Clinical Impression: Schizophrenia - PA / COOK BOAT / Resident Statement MD/DO has reviewed & agrees with the documentation as recorded. - Scribe Statement The provider has reviewed the documentation as recorded by the Scribe (Robina Rae) All medical record entries made by the Scribe were at my direction and personally dictated by me. I have reviewed the chart and agree that the record accurately reflects my personal performance of the history, physical exam, medical decision making, and the department course for this patient. I have also personally directed, reviewed, and agree with the discharge instructions and disposition.
[2018-01-15 06:11] VITALS: BP 132/70; PULSE 78; TEMP 97; O2SAT 99
== END 2018-01-15 06:10 | disposition home or self-care (01) ==
LOC: C.ER 01:21
DX: F20.9 Schizophrenia, unspecified (principal)

== ENCOUNTER 2018-01-17 23:39 | Emergency (ER) | payer MEDICARE ==
[2018-01-17 23:39] VITALS: BMI 23.0
[2018-01-17 23:47] VITALS: BP 108/75; PULSE 80; RESP 16; TEMP 98.7; O2SAT 100
--- NOTE | 2018-01-18 00:30 | C.PDOC ---
History Of Present Illness 58 year old male presents to the ED requesting for a place to sleep. Patient has multiple visits to the ED with same presentation. Patient denies SI/HI, hallucinations, other medical complaints. Time Seen by Provider: 01/17/18 23:44 Chief Complaint (Nursing): Medical Clearance History Per: Patient History/Exam Limitations: no limitations Onset/Duration Of Symptoms: Hrs Current Symptoms Are (Timing): Gone Recent travel outside of the [place]: No Additional History Per: Patient Past Medical History Reviewed: Historical Data, Nursing Documentation, Vital Signs Vital Signs: Last Vital Signs Temp 98.7 F 01/17/18 23:43 Pulse 80 01/17/18 23:43 Resp 16 01/17/18 23:43 BP 108/75 01/17/18 23:43 Pulse Ox 100 01/17/18 23:43 - Medical History PMH: Anxiety, Asthma, Bipolar Disorder, Depression, Diabetes, Gastritis, Hepatitis, HTN, Paranoia, Personality Disorder, Chronic Kidney Disease, Schizophrenia, Seizures, Chronic Pain Denies: HIV, Sexually Transmitted Disease Surgical History: No Surg Hx - [facility] Procedures APPLICATION OF SPLINT (04/09/14) CL FX REDUC-TIBIA/FIBULA (02/26/13) GROUP PSYCHOTHERAPY (12/07/17) INDIVID PSYCHOTHERAP NEC (12/17/13) INDIVIDUAL PSYCHOTHERAPY, BEHAVIORAL (01/29/16) INDIVIDUAL PSYCHOTHERAPY, COGNITIVE-BEHAVIORAL (12/07/17) INDIVIDUAL PSYCHOTHERAPY, SUPPORTIVE (06/01/17) MEDICATION MANAGEMENT (07/22/16) OTHER GROUP THERAPY (11/05/13) PSYCHIA INTERV/EVAL NEC (06/28/14) Family History: States: Unknown Family Hx - Social History Hx Tobacco Use: Yes Hx Alcohol Use: No (no longer drinks) Hx Substance Use: No - Immunization History Hx Tetanus Toxoid Vaccination: Yes Hx Influenza Vaccination: Yes Hx Pneumococcal Vaccination: Yes Review Of Systems Constitutional: Negative for: Fever, Chills Cardiovascular: Negative for: Chest Pain Respiratory: Negative for: Shortness of Breath Gastrointestinal: Negative for: Vomiting, Abdominal Pain Skin: Negative for: Rash Psych: Negative for: Depression, Suicidal ideation Physical Exam - Physical Exam Appears: Non-toxic, No Acute Distress Skin: Normal Color, Warm, Dry Head: Atraumatic, Normacephalic Eye(s): bilateral: Normal Inspection Neck: Normal ROM, Supple Chest: Symmetrical Cardiovascular: Rhythm Regular Respiratory: Normal Breath Sounds, No Rales, No Rhonchi, No Wheezing Gastrointestinal/Abdominal: Soft, No Tenderness, No Guarding, No Rebound Extremity: Normal ROM, No Tenderness, No Swelling Neurological/Psych: Oriented x3, Normal Speech, Normal Cognition Gait: Steady ED Course And Treatment O2 Sat by Pulse Oximetry: 100 (ON RA) Pulse Ox Interpretation: Normal Progress Note: Upeon examination patient was seen ra sanchez in [facility]. Disposition - Disposition Disposition: HOME/ ROUTINE Disposition Time: 00:15 Condition: GOOD Forms: [employer] (Uzbek) - Clinical Impression Clinical Impression: Medical assessment - PA / GAS TRANSFER OPERATOR / Resident Statement MD/DO has reviewed & agrees with the documentation as recorded. - Scribe Statement The provider has reviewed the documentation as recorded by the Scribe Jarod Jett All medical record entries made by the Scribe were at my direction and personally dictated by me. I have reviewed the chart and agree that the record accurately reflects my personal performance of the history, physical exam, medical decision making, and the department course for this patient. I have also personally directed, reviewed, and agree with the discharge instructions and disposition.
== END 2018-01-17 23:53 | disposition home or self-care (01) ==
LOC: C.ER 23:39
DX: Z00.00 Encounter for general adult medical examination without abnormal findings (principal)

== ENCOUNTER → 2018-01-18 23:38 | Emergency (ER) | payer MEDICARE ==
[2018-01-18 23:39] VITALS: BMI 23.0
== END | disposition left against medical advice (07) ==
LOC: C.ER 23:38
DX: Z02.89 Encounter for other administrative examinations (principal); Z00.00 Encounter for general adult medical examination without abnormal findings

== ENCOUNTER 2018-01-21 00:14 | Emergency (ER) | payer MEDICARE ==
[2018-01-21 00:14] VITALS: BMI 23.0
--- NOTE | 2018-01-21 01:48 | C.PDOC ---
History Of Present Illness 58 year old male presents to the ER requesting a place to spend the night. Denies any physical complaints at this time. Time Seen by Provider: 01/21/18 01:22 Chief Complaint (Nursing): Medical Clearance History Per: Patient History/Exam Limitations: no limitations Onset/Duration Of Symptoms: Hrs Recent travel outside of the [place]: No Past Medical History Reviewed: Historical Data, Nursing Documentation, Vital Signs Vital Signs: Last Vital Signs Temp 97 F L 01/21/18 00:18 Pulse 70 01/21/18 00:18 Resp 14 01/21/18 00:18 BP 114/79 01/21/18 00:18 Pulse Ox 97 01/21/18 00:18 - Medical History PMH: Anxiety, Asthma, Bipolar Disorder, Depression, Diabetes, Gastritis, Hepatitis, HTN, Paranoia, Personality Disorder, Chronic Kidney Disease, Schizophrenia, Seizures, Chronic Pain Denies: HIV, Sexually Transmitted Disease Surgical History: - [facility] Procedures APPLICATION OF SPLINT (04/09/14) CL FX REDUC-TIBIA/FIBULA (02/26/13) GROUP PSYCHOTHERAPY (12/07/17) INDIVID PSYCHOTHERAP NEC (12/17/13) INDIVIDUAL PSYCHOTHERAPY, BEHAVIORAL (01/29/16) INDIVIDUAL PSYCHOTHERAPY, COGNITIVE-BEHAVIORAL (12/07/17) INDIVIDUAL PSYCHOTHERAPY, SUPPORTIVE (06/01/17) MEDICATION MANAGEMENT (07/22/16) OTHER GROUP THERAPY (11/05/13) PSYCHIA INTERV/EVAL NEC (06/28/14) Family History: States: Unknown Family Hx - Social History Hx Tobacco Use: Yes Hx Alcohol Use: No (no longer drinks) Hx Substance Use: No - Immunization History Hx Tetanus Toxoid Vaccination: Yes Hx Influenza Vaccination: Yes Hx Pneumococcal Vaccination: Yes Review Of Systems Constitutional: Negative for: Fever, Chills Cardiovascular: Negative for: Chest Pain, Palpitations Respiratory: Negative for: Cough, Shortness of Breath Gastrointestinal: Negative for: Nausea, Vomiting Neurological: Negative for: Weakness, Numbness Physical Exam - Physical Exam Appears: Non-toxic Skin: Normal Color, Warm, Dry Head: Atraumatic, Normacephalic Eye(s): bilateral: Normal Inspection Oral Mucosa: Moist Chest: Symmetrical, No Tenderness Cardiovascular: Rhythm Regular Respiratory: Normal Breath Sounds, No Rales, No Rhonchi, No Wheezing Gastrointestinal/Abdominal: Soft, No Tenderness Neurological/Psych: Oriented x3, Normal Speech ED Course And Treatment O2 Sat by Pulse Oximetry: 97 (Room air) Pulse Ox Interpretation: Normal Medical Decision Making Medical Decision Making: Patient is resting comfortably in the ER in no acute distress with no complaints at this time, vitals are stable, will discharge home. Disposition - Disposition Referrals: [facility] [Outside] [facility] [Outside] Disposition: HOME/ ROUTINE Disposition Time: 01:46 Condition: GOOD Additional Instructions: Follow up with the medical doctor within 1-2 days. Return if worsened. 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 - Scribe Statement The provider has reviewed the documentation as recorded by the Scribalexis Gottlieb All medical record entries made by the Scribe were at my direction and personally dictated by me. I have reviewed the chart and agree that the record accurately reflects my personal performance of the history, physical exam, medical decision making, and the department course for this patient. I have also personally directed, reviewed, and agree with the discharge instructions and disposition.
[2018-01-21 04:42] VITALS: BP 105/63; PULSE 90; RESP 18; TEMP 98.5
[2018-01-21 06:44] VITALS: O2SAT 97
== END 2018-01-21 05:14 | disposition home or self-care (01) ==
LOC: C.ER 00:14
DX: F20.9 Schizophrenia, unspecified (principal)

== ENCOUNTER 2018-01-21 09:17 | Emergency (ER) | payer MEDICARE ==
[2018-01-21 09:18] VITALS: BMI 23.0
[2018-01-21 09:30] VITALS: PULSE 76; RESP 18; TEMP 97.8; O2SAT 99
--- NOTE | 2018-01-21 09:38 | C.PDOC ---
History Of Present Illness 58 y/o male with PMHx of schizophrenia presents to the ED complaining of hearing voices, unchanged from prior. He denies any other psychiatric complaints such as visual hallucinations, SI, or HI. Patient reports no new symptoms today. Has history of frequent ED visits for the same. Time Seen by Provider: 01/21/18 09:36 Chief Complaint (Nursing): Psychiatric Evaluation History Per: Patient History/Exam Limitations: no limitations Onset/Duration Of Symptoms: Days Current Symptoms Are (Timing): Still Present Associated Symptoms: denies: Suicidal Thoughts, Suicidal Plan Involuntary Hold By: None Past Medical History Reviewed: Historical Data, Nursing Documentation, Vital Signs Vital Signs: Last Vital Signs Temp 97.8 F 01/21/18 09:28 Pulse 76 01/21/18 09:28 Resp 18 01/21/18 09:28 BP Pulse Ox 99 01/21/18 09:28 - Medical History PMH: Anxiety, Asthma, Bipolar Disorder, Depression, Diabetes, Gastritis, Hepatitis, HTN, Paranoia, Personality Disorder, Chronic Kidney Disease, Schizophrenia, Seizures, Chronic Pain Denies: HIV, Sexually Transmitted Disease Surgical History: Other Surgeries: Right hand surgery - [facility] Procedures APPLICATION OF SPLINT (04/09/14) CL FX REDUC-TIBIA/FIBULA (02/26/13) GROUP PSYCHOTHERAPY (12/07/17) INDIVID PSYCHOTHERAP NEC (12/17/13) INDIVIDUAL PSYCHOTHERAPY, BEHAVIORAL (01/29/16) INDIVIDUAL PSYCHOTHERAPY, COGNITIVE-BEHAVIORAL (12/07/17) INDIVIDUAL PSYCHOTHERAPY, SUPPORTIVE (06/01/17) MEDICATION MANAGEMENT (07/22/16) OTHER GROUP THERAPY (11/05/13) PSYCHIA INTERV/EVAL NEC (06/28/14) Family History: States: Unknown Family Hx - Social History Hx Tobacco Use: Yes Hx Alcohol Use: No (no longer drinks) Hx Substance Use: No - Immunization History Hx Tetanus Toxoid Vaccination: Yes Hx Influenza Vaccination: Yes Hx Pneumococcal Vaccination: Yes Review Of Systems Except As Marked, All Systems Reviewed And Found Negative. Constitutional: Negative for: Fever Cardiovascular: Negative for: Chest Pain Respiratory: Negative for: Shortness of Breath Gastrointestinal: Negative for: Vomiting Psych: Positive for: Other (Hearing voices, chronic). Negative for: Psychosis, Suicidal ideation Physical Exam - Physical Exam Appears: Non-toxic, No Acute Distress, Unkempt, Other (Foul-smelling) Skin: Normal Color, Warm, Dry Head: Atraumatic, Normacephalic Eye(s): bilateral: Normal Inspection, PERRL, EOMI Oral Mucosa: Moist Neck: Normal ROM Chest: Symmetrical Cardiovascular: Rhythm Regular, No Murmur Respiratory: Normal Breath Sounds, No Accessory Muscle Use Extremity: Bilateral: Atraumatic, Normal Color And Temperature, Normal ROM Neurological/Psych: Oriented x3, Normal Speech ED Course And Treatment O2 Sat by Pulse Oximetry: 99 (RA) Pulse Ox Interpretation: Normal Medical Decision Making Medical Decision Making: baseline exam and complaints no new complaints nor findings outpatient f/u encouraged Disposition Doctor Will See Patient In The: Office Counseled Patient/Family Regarding: Studies Performed, Diagnosis - Disposition Referrals: [facility] [Outside] [facility] [Outside] [facility] [Outside] [id number] [Outside] Disposition: HOME/ ROUTINE Disposition Time: 09:38 Condition: GOOD Additional Instructions: continue outpatient eval Visit the [facility] for further evaluation and ongoing treatment Instructions: Schizoaffective Disorder Forms: [facility] (Stateless) - Clinical Impression Clinical Impression: Schizoaffective disorder, Malingerer - Scribe Statement The provider has reviewed the documentation as recorded by the Scribe (Roselyn Natarajan) Provider Attestation: All medical record entries made by the Scribe were at my direction and personally dictated by me. I have reviewed the chart and agree that the record accurately reflects my personal performance of the history, physical exam, medical decision making, and the department course for this patient. I have also personally directed, reviewed, and agree with the discharge instructions and disposition.
== END 2018-01-21 09:51 | disposition home or self-care (01) ==
LOC: C.ER 09:17
DX: F25.9 Schizoaffective disorder, unspecified (principal); Z76.5 Malingerer [conscious simulation]

== ENCOUNTER 2018-03-09 18:32 | Emergency (ER) | payer MEDICARE ==
[2018-03-09 18:32] VITALS: BMI 23.0
[2018-03-09 19:23] VITALS: BP 120/78; PULSE 99; RESP 20; TEMP 98.9; O2SAT 99
--- NOTE | 2018-03-09 19:26 | C.PDOC ---
History Of Present Illness 58 year old male presents to the ED complaining of hearing voices. Also requesting a place to sleep and stay the night. Patient has chronic history of schizophrenia, denies any change in voices. He denies any suicidal or homicidal ideation. Patient has had many prior visits to the ED for same complaint. No medical complaints offered at this time. Time Seen by Provider: 03/09/18 19:20 Chief Complaint (Nursing): Psychiatric Evaluation History Per: Patient History/Exam Limitations: no limitations Onset/Duration Of Symptoms: Days Current Symptoms Are (Timing): Still Present Past Medical History Reviewed: Historical Data, Nursing Documentation, Vital Signs Vital Signs: Last Vital Signs Temp 98.9 F 03/09/18 19:12 Pulse 99 H 03/09/18 19:12 Resp 20 03/09/18 19:12 BP 120/78 03/09/18 19:12 Pulse Ox 99 03/09/18 19:12 - Medical History PMH: Anxiety, Asthma, Bipolar Disorder, Depression, Diabetes, Gastritis, Paranoia, Personality Disorder, Chronic Kidney Disease, Schizophrenia, Seizures, Chronic Pain Denies: Hepatitis, HIV, HTN, Sexually Transmitted Disease Surgical History: - [facility] Procedures APPLICATION OF SPLINT (04/09/14) CL FX REDUC-TIBIA/FIBULA (02/26/13) GROUP PSYCHOTHERAPY (12/07/17) INDIVID PSYCHOTHERAP NEC (12/17/13) INDIVIDUAL PSYCHOTHERAPY, BEHAVIORAL (01/29/16) INDIVIDUAL PSYCHOTHERAPY, COGNITIVE-BEHAVIORAL (12/07/17) INDIVIDUAL PSYCHOTHERAPY, SUPPORTIVE (06/01/17) MEDICATION MANAGEMENT (07/22/16) OTHER GROUP THERAPY (11/05/13) PSYCHIA INTERV/EVAL NEC (06/28/14) Family History: States: Unknown Family Hx - Social History Hx Tobacco Use: Yes Hx Alcohol Use: No (no longer drinks) Hx Substance Use: No - Immunization History Hx Tetanus Toxoid Vaccination: Yes Hx Influenza Vaccination: Yes Hx Pneumococcal Vaccination: Yes Review Of Systems Constitutional: Negative for: Fever Cardiovascular: Negative for: Chest Pain Respiratory: Negative for: Shortness of Breath Psych: Positive for: Other (Hearing voices, chronic). Negative for: Suicidal ideation (or homicidal) Physical Exam - Physical Exam Appears: Non-toxic, No Acute Distress Skin: Warm, Dry Head: Normacephalic Eye(s): bilateral: Normal Inspection Oral Mucosa: Moist Neck: Normal ROM Chest: Symmetrical Respiratory: No Accessory Muscle Use, Other (no respiratory distress) Extremity: Normal ROM, No Pedal Edema Neurological/Psych: Oriented x3, Other (Ambulatory in the ED) Gait: Steady ED Course And Treatment O2 Sat by Pulse Oximetry: 99 (RA) Pulse Ox Interpretation: Normal Progress Note: Patient presents with chronic complaint of hearing voices. Many prior ED visits for same. Advised patient to follow up with outpatient psychiatrist, resources provided. Disposition Counseled Patient/Family Regarding: Diagnosis, Need For Followup - Disposition Referrals: [facility] [Outside] Disposition: HOME/ ROUTINE Disposition Time: 19:26 Condition: STABLE Forms: [facility] (Australian), General Discharge Instructions - Clinical Impression Clinical Impression: Encounter for limited medical examination - PA / DOSIMETRIST / Resident Statement MD/DO has reviewed & agrees with the documentation as recorded. - Scribe Statement The provider has reviewed the documentation as recorded by the Scribalexis Natarajan All medical record entries made by the Scribe were at my direction and personally dictated by me. I have reviewed the chart and agree that the record accurately reflects my personal performance of the history, physical exam, medical decision making, and the department course for this patient. I have also personally directed, reviewed, and agree with the discharge instructions and disposition.
== END 2018-03-09 19:36 | disposition home or self-care (01) ==
LOC: C.ER 18:32
DX: Z00.8 Encounter for other general examination (principal); F20.9 Schizophrenia, unspecified

== ENCOUNTER 2018-03-23 01:09 | Emergency (ER) | payer MEDICARE ==
[2018-03-23 01:10] VITALS: BMI 23.0
--- NOTE | 2018-03-23 01:18 | C.PDOC ---
History Of Present Illness 58 year old male presents to the ED for evaluation. Patient states he wants a place to sleep and spend the night. Patient has multiple prior visits to the ED for same. Patient denies SI/HI., hallucinations, injury, fall, trauma. Time Seen by Provider: 03/23/18 01:17 Chief Complaint (Nursing): Cough, Cold, Congestion History Per: Patient History/Exam Limitations: no limitations Onset/Duration Of Symptoms: Hrs Current Symptoms Are (Timing): Still Present Recent travel outside of the [place]: No Additional History Per: Patient Past Medical History Reviewed: Historical Data, Nursing Documentation, Vital Signs - Medical History PMH: Anxiety, Asthma, Bipolar Disorder, Depression, Diabetes, Gastritis, Paranoia, Personality Disorder, Schizophrenia, Seizures, Chronic Pain Denies: Hepatitis, HIV, HTN, Chronic Kidney Disease, Sexually Transmitted Disease Surgical History: No Surg Hx - [facility] Procedures APPLICATION OF SPLINT (04/09/14) CL FX REDUC-TIBIA/FIBULA (02/26/13) GROUP PSYCHOTHERAPY (12/07/17) INDIVID PSYCHOTHERAP NEC (12/17/13) INDIVIDUAL PSYCHOTHERAPY, BEHAVIORAL (01/29/16) INDIVIDUAL PSYCHOTHERAPY, COGNITIVE-BEHAVIORAL (12/07/17) INDIVIDUAL PSYCHOTHERAPY, SUPPORTIVE (06/01/17) MEDICATION MANAGEMENT (07/22/16) OTHER GROUP THERAPY (11/05/13) PSYCHIA INTERV/EVAL NEC (06/28/14) Family History: States: Unknown Family Hx - Social History Hx Tobacco Use: Yes Hx Alcohol Use: Yes (quit) Hx Substance Use: No - Immunization History Hx Tetanus Toxoid Vaccination: Yes Hx Influenza Vaccination: Yes Hx Pneumococcal Vaccination: Yes Review Of Systems Constitutional: Negative for: Fever, Chills Cardiovascular: Negative for: Chest Pain Respiratory: Negative for: Shortness of Breath Gastrointestinal: Negative for: Nausea, Vomiting, Abdominal Pain Skin: Negative for: Rash Neurological: Negative for: Weakness, Numbness Psych: Negative for: Depression, Suicidal ideation Physical Exam - Physical Exam Appears: Non-toxic, No Acute Distress Skin: Warm, Dry Head: Normacephalic Eye(s): bilateral: Normal Inspection Neck: Supple Chest: Symmetrical Cardiovascular: Rhythm Regular Respiratory: No Rales, No Rhonchi, No Wheezing Gastrointestinal/Abdominal: Soft, No Tenderness, No Guarding, No Rebound Extremity: Bilateral: Atraumatic, Normal Color And Temperature, Normal ROM Neurological/Psych: Oriented x3, Normal Speech, Normal Cognition Gait: Steady ED Course And Treatment O2 Sat by Pulse Oximetry: 98 (ON RA) Pulse Ox Interpretation: Normal Reevaluation Time: 05:14 Reassessment Condition: Improved Disposition Counseled Patient/Family Regarding: Studies Performed, Diagnosis, Need For Followup - Disposition Referrals: [facility] [Outside] Disposition: HOME/ ROUTINE Disposition Time: 01:18 Condition: FAIR Forms: [facility] (Sierra Leonean), General Discharge Instructions - Clinical Impression Clinical Impression: Schizophrenia - Scribe Statement The provider has reviewed the documentation as recorded by the Scribe Jarod Jett All medical record entries made by the Scribe were at my direction and personally dictated by me. I have reviewed the chart and agree that the record accurately reflects my personal performance of the history, physical exam, medical decision making, and the department course for this patient. I have also personally directed, reviewed, and agree with the discharge instructions and disposition.
[2018-03-23 04:45] VITALS: BP 132/78; PULSE 90; RESP 12; TEMP 98
[2018-03-23 05:14] VITALS: O2SAT 98
== END 2018-03-23 05:35 | disposition home or self-care (01) ==
LOC: C.ER 01:09
DX: F20.9 Schizophrenia, unspecified (principal)

== ENCOUNTER 2018-05-04 02:30 | Emergency (ER) | payer MEDICARE ==
[2018-05-04 02:30] VITALS: BMI 23.0
--- NOTE | 2018-05-04 02:51 | C.PDOC ---
History Of Present Illness 58 year old male presents to the ED requesting for a place to sleep and spend the night due to the cold weather. Patient has multiple prior visits to the ED for same. Patient denies SI/HI, hallucinations, alcohol o drug abuse. Time Seen by Provider: 05/04/18 02:50 Chief Complaint (Nursing): Medical Clearance History Per: Patient History/Exam Limitations: no limitations Onset/Duration Of Symptoms: Hrs Current Symptoms Are (Timing): Still Present Recent travel outside of the [place]: No Additional History Per: Patient Past Medical History Reviewed: Historical Data, Nursing Documentation, Vital Signs Vital Signs: Last Vital Signs Temp 97.5 F L 05/04/18 02:45 Pulse 82 05/04/18 02:45 Resp 16 05/04/18 02:45 BP 113/76 05/04/18 02:45 Pulse Ox 97 05/04/18 02:45 - Medical History PMH: Anxiety, Asthma, Bipolar Disorder, Depression, Gastritis, Paranoia, Personality Disorder, Schizophrenia, Chronic Pain Denies: Diabetes, Hepatitis, HIV, HTN, Chronic Kidney Disease, Seizures, Sexually Transmitted Disease Surgical History: No Surg Hx - [facility] Procedures APPLICATION OF SPLINT (04/09/14) CL FX REDUC-TIBIA/FIBULA (02/26/13) GROUP PSYCHOTHERAPY (03/27/18) INDIVID PSYCHOTHERAP NEC (12/17/13) INDIVIDUAL PSYCHOTHERAPY, BEHAVIORAL (01/29/16) INDIVIDUAL PSYCHOTHERAPY, COGNITIVE-BEHAVIORAL (12/07/17) INDIVIDUAL PSYCHOTHERAPY, SUPPORTIVE (03/27/18) MEDICATION MANAGEMENT (07/22/16) OTHER GROUP THERAPY (11/05/13) PSYCHIA INTERV/EVAL NEC (06/28/14) Family History: States: Unknown Family Hx - Social History Hx Tobacco Use: Yes Hx Alcohol Use: Yes Hx Substance Use: No - Immunization History Hx Tetanus Toxoid Vaccination: No Hx Influenza Vaccination: No Review Of Systems Constitutional: Negative for: Fever, Chills Cardiovascular: Negative for: Chest Pain Respiratory: Negative for: Shortness of Breath Gastrointestinal: Negative for: Nausea, Vomiting, Abdominal Pain Skin: Negative for: Rash Psych: Negative for: Depression, Suicidal ideation Physical Exam - Physical Exam Appears: Non-toxic, No Acute Distress Skin: Warm, Dry Head: Normacephalic Eye(s): bilateral: Normal Inspection Neck: Supple Chest: Symmetrical Cardiovascular: Rhythm Regular Respiratory: No Rales, No Rhonchi, No Wheezing Gastrointestinal/Abdominal: Soft, No Tenderness, No Guarding, No Rebound Extremity: Bilateral: Atraumatic, Normal Color And Temperature, Normal ROM Neurological/Psych: Oriented x3, Normal Speech, Normal Cognition Gait: Steady ED Course And Treatment O2 Sat by Pulse Oximetry: 97 (ON RA) Pulse Ox Interpretation: Normal Reevaluation Time: 05:17 Reassessment Condition: Improved Disposition Counseled Patient/Family Regarding: Studies Performed, Diagnosis, Need For Followup - Disposition Referrals: [facility] [Outside] Disposition: HOME/ ROUTINE Disposition Time: 02:50 Condition: FAIR Forms: [facility] (German), General Discharge Instructions - Clinical Impression Clinical Impression: Encounter for limited medical examination - Scribe Statement The provider has reviewed the documentation as recorded by the Scribe Jarod Jett All medical record entries made by the Scribe were at my direction and personally dictated by me. I have reviewed the chart and agree that the record accurately reflects my personal performance of the history, physical exam, medical decision making, and the department course for this patient. I have also personally directed, reviewed, and agree with the discharge instructions and disposition.
[2018-05-04 05:51] VITALS: BP 112/68; PULSE 66; RESP 21; TEMP 98.3; O2SAT 98
== END 2018-05-04 05:46 | disposition home or self-care (01) ==
LOC: C.ER 02:30
DX: Z04.89 Encounter for examination and observation for other specified reasons (principal)

== ENCOUNTER 2018-05-22 02:40 | Emergency (ER) | payer MEDICARE ==
[2018-05-22 02:41] VITALS: BMI 23.4
[2018-05-22 02:52] VITALS: RESP 16
--- NOTE | 2018-05-22 03:39 | C.PDOC ---
History Of Present Illness 58 year old male presents to the ED requesting for a place to sleep and spend the night. Patient reports he is not able to go to his home due to his sister being out. Patient denies SI/HI, hallucinations, other physical complaints. Time Seen by Provider: 05/22/18 03:20 Chief Complaint (Nursing): Medical Clearance History Per: Patient History/Exam Limitations: no limitations Onset/Duration Of Symptoms: Hrs Current Symptoms Are (Timing): Gone Recent travel outside of the [place]: No Additional History Per: Patient Past Medical History Reviewed: Historical Data, Nursing Documentation, Vital Signs Vital Signs: Last Vital Signs Temp 97.7 F 05/22/18 02:48 Pulse 90 05/22/18 02:48 Resp 16 05/22/18 02:48 BP 127/78 05/22/18 02:48 Pulse Ox 99 05/22/18 02:48 - Medical History PMH: Anxiety, Asthma, Bipolar Disorder, Depression, Gastritis, Paranoia, Personality Disorder, Schizophrenia, Chronic Pain Denies: Diabetes, Hepatitis, HIV, HTN, Chronic Kidney Disease, Seizures, Sexually Transmitted Disease Surgical History: No Surg Hx - [facility] Procedures APPLICATION OF SPLINT (04/09/14) CL FX REDUC-TIBIA/FIBULA (02/26/13) GROUP PSYCHOTHERAPY (03/27/18) INDIVID PSYCHOTHERAP NEC (12/17/13) INDIVIDUAL PSYCHOTHERAPY, BEHAVIORAL (01/29/16) INDIVIDUAL PSYCHOTHERAPY, COGNITIVE-BEHAVIORAL (12/07/17) INDIVIDUAL PSYCHOTHERAPY, SUPPORTIVE (03/27/18) MEDICATION MANAGEMENT (07/22/16) OTHER GROUP THERAPY (11/05/13) PSYCHIA INTERV/EVAL NEC (06/28/14) Family History: States: Unknown Family Hx - Social History Hx Tobacco Use: Yes Hx Alcohol Use: Yes Hx Substance Use: No - Immunization History Hx Tetanus Toxoid Vaccination: No Hx Influenza Vaccination: No Review Of Systems Constitutional: Negative for: Fever, Chills Cardiovascular: Negative for: Chest Pain Respiratory: Negative for: Shortness of Breath Gastrointestinal: Negative for: Nausea, Vomiting, Abdominal Pain Skin: Negative for: Rash Psych: Negative for: Depression, Suicidal ideation Physical Exam - Physical Exam Appears: Non-toxic, No Acute Distress Skin: Normal Color, Warm, Dry Head: Atraumatic, Normacephalic Eye(s): bilateral: Normal Inspection Neck: Normal ROM, Supple Chest: Symmetrical Cardiovascular: Rhythm Regular Respiratory: Normal Breath Sounds, No Rales, No Rhonchi, No Wheezing Gastrointestinal/Abdominal: Soft, No Tenderness Extremity: Bilateral: Atraumatic, Normal Color And Temperature, Normal ROM Neurological/Psych: Oriented x3, Normal Speech, Normal Cognition Gait: Steady ED Course And Treatment O2 Sat by Pulse Oximetry: 99 (ON RA) Pulse Ox Interpretation: Normal Progress Note: Patient was seen ambulating in the ED without difficulty. Patient's sister is back at home and patient is clear for D/C as he is able to enter his home. Disposition - Disposition Disposition: HOME/ ROUTINE Disposition Time: 05:40 Condition: STABLE Forms: [employer] (Bulgarian) - Clinical Impression Clinical Impression: Personality disorder, unspecified - PA / [employer] / Resident Statement MD/DO has reviewed & agrees with the documentation as recorded. - Scribe Statement The provider has reviewed the documentation as recorded by the Scribe Jarod Jett All medical record entries made by the Scribe were at my direction and personally dictated by me. I have reviewed the chart and agree that the record accurately reflects my personal performance of the history, physical exam, medical decision making, and the department course for this patient. I have also personally directed, reviewed, and agree with the discharge instructions and disposition.
[2018-05-22 06:04] VITALS: BP 139/79; PULSE 93; TEMP 98.5
[2018-05-22 19:36] VITALS: O2SAT 99
== END 2018-05-22 05:59 | disposition home or self-care (01) ==
LOC: C.ER 02:40
DX: F60.9 Personality disorder, unspecified (principal); F20.9 Schizophrenia, unspecified; Z72.0 Tobacco use